=== PATIENT | female | born 1950 | race Caucasian/White ===

== ENCOUNTER 2023-08-18 19:57 | Outpatient (REF) | payer MEDICARE, BC, SELFPAY ==
[2023-08-23 08:07] LABS: Age Gdln ACOG Testing Note (.); Pap IG (Image Guided) Note (.)
== END 2023-08-18 19:58 | disposition home or self-care (01) ==
LOC: LAB 19:57
PROVIDERS: Visit Provider Obstetrics & Gynecology
DX: Z01.419 Encounter for gynecological examination (general) (routine) without abnormal findings (principal)
CPT/HCPCS: G0145

== ENCOUNTER 2023-08-27 13:58 | Outpatient (OUT) | payer MEDICARE, BC, SELFPAY ==
--- NOTE | 2023-08-27 14:02 | XR_ITS ---
[address] [address] Patient Name: LIBERTY BRYANT MRN: [id number] date: 1950 Sex: F Assigned Patient Location: [facility] Current Patient Location: [facility] Accession/Order Number: [id number] Exam Date: 08/27/2023 14:30 Report Date: 08/27/2023 15:12 At the request of: DAV OTERO Procedure: XR DEXA axial skeleton EXAMINATION: XR DEXA axial skeleton HISTORY: screening for osteoporosis COMPARISON: DEXA bone densitometry 08/19/2022 TECHNIQUE: Dual-energy X-ray absorptiometry (DXA) was performed. FINDINGS: SPINE ANALYSIS: Average bone mineral density is 1.255 g/cm2. T-score (standard deviation relative to young adult mean): 0.6 . -4.5% change since prior study. HIP ANALYSIS: Lowest bone mineral density is within the left femoral neck, 0.732 g/cm2. T-score (standard deviation relative to young adult mean): -2.2 . -3.4% change since prior study. XR/XR DEXA axial skeleton IMPRESSION: [employer] Classification: Osteopenia - Moderate Fracture Risk Electronically authenticated by: NICOLE BONE Date: 08/27/2023 15:12
--- NOTE | 2023-08-27 14:02 | MM_ITS ---
Patient Name: LIBERTY BRYANT MR#: [id number] : 1950 Exam Date: 08/27/2023 Ordering Doctor: DR Robert Ferreira . RADIOLOGY REPORT PROCEDURE: MM TOMOSYNTHESIS SCREENING BI COMPARISON: MG MAMM SCREEN 3D CALOS CAD, 05/16/2022. MG MAMM SCREEN 3D CALOS CAD, 05/07/2021. MG MAMM SCREEN CALOS W CAD, 04/23/2020. MG MAMM CALOS SCRN W CAD DIG, 01/03/2014. INDICATIONS: screening Calculator Name NCI Breast Cancer Risk Assessment Tool 5 Year Breast Cancer Risk 2.00% Lifetime Breast Cancer Risk 5.10% Personal Breast Cancer No Personal Ovarian Cancer No Treatments RADIATION/THYROIDECTOMY Family Cancers Aunt-maternal with breast cancer at age 50; Aunt-maternal with breast cancer at age 45; Grandmother-maternal with breast cancer at age 46; Mother with lung cancer at age 80; Brother with prostate cancer at age 70. LOCATION: [facility] BREAST COMPOSITION: Almost entirely fatty. FINDINGS: DIAGNOSTIC CATEGORY 1--NEGATIVE. RIGHT BREAST: No significant suspicious finding. No significant change has occurred. LEFT BREAST: No significant suspicious finding. No significant change has occurred. RECOMMENDATIONS: ROUTINE MAMMOGRAM AND CLINICAL EVALUATION IN 12 MONTHS. PLEASE NOTE: A NORMAL MAMMOGRAM DOES NOT EXCLUDE THE POSSIBILITY OF BREAST CANCER. A CLINICALLY SUSPICIOUS PALPABLE LUMP SHOULD BE BIOPSIED. Dictated by: Vinicius Marte M.D. on 08/28/2023 at 13:50 Approved by: Vinicius Marte M.D. on 08/28/2023 at 14:08
== END 2023-08-27 13:59 | disposition home or self-care (01) ==
LOC: MAMMO 13:58
PROVIDERS: Visit Provider Obstetrics & Gynecology
DX: Z12.31 Encounter for screening mammogram for malignant neoplasm of breast (principal); Z78.0 Asymptomatic menopausal state; Z80.3 Family history of malignant neoplasm of breast; Z80.1 Family history of malignant neoplasm of trachea, bronchus and lung; Z80.42 Family history of malignant neoplasm of prostate; M85.80 Other specified disorders of bone density and structure, unspecified site
CPT/HCPCS: 77063; 77067; 77080

== ENCOUNTER 2024-02-02 10:49 | Outpatient (OUT) | payer MEDICARE, BC, SELFPAY ==
--- NOTE | 2024-02-02 | US_ITS ---
[address] [address] Patient Name: LIBERTY BRYANT MRN: [id number] date: 1950 Sex: F Assigned Patient Location: Current Patient Location: Accession/Order Number: [id number] Exam Date: 02/02/2024 11:14 Report Date: 02/03/2024 13:37 At the request of: BERTHA BLAND Procedure: US renal BI EXAMINATION: US renal BI HISTORY: KIDNEY STONES, ASYMPTOMATIC, MICROHEMATURIA COMPARISON: No relevant comparison available. TECHNIQUE: Ultrasound examination was performed of the bladder. FINDINGS: Right Kidney: Normal in size, contour and cortical echotexture. The cortex measures 1 cm. No solid cortical mass, hydronephrosis or obstructing nephrolithiasis Height: 4.33 cm Length: 10.13 cm Width: 4.43 cm Left Kidney: Normal in size, contour and cortical echotexture. The cortex measures 1 cm. No solid cortical mass or hydronephrosis. Area of anechoic echogenicity measuring 1.1 cm, upper pole, simple cyst. Echogenic foci measuring up to 6 mm, nonobstructing nephrolithiasis Height: 4.99 cm Length: 10.97 cm Width: 5.11 cm Urinary bladder is normal. Prevoid volume 210 mL. US/US renal BI IMPRESSION: 1.1 cm left renal simple cyst Nonobstructing left nephrolithiasis Electronically authenticated by: DOMINICK MARTE Date: 02/03/2024 13:37
--- NOTE | 2024-02-02 11:04 | XR_ITS ---
The [address] [address] Patient Name: LIBERTY BRYANT MRN: [id number] date: 1950 Sex: F Assigned Patient Location: [place] Current Patient Location: [place] Accession/Order Number: [id number] Exam Date: 02/02/2024 11:00 Report Date: 02/04/2024 07:11 At the request of: BERTHA BLAND Procedure: XR abdomen 1V EXAMINATION: XR abdomen 1V HISTORY: KIDNEY STONES, ASYMPTOMATIC, MICROHEMATURIA COMPARISON: No relevant comparison available. FINDINGS: KIDNEY/URETER - RIGHT: No visible renal or ureteral calcifications. KIDNEY/URETER - LEFT: No visible renal or ureteral calcifications. PELVIS: No visible ureteral calcifications. Any visible calcifications favor phleboliths. BOWEL: No abnormal dilation or deviation. BONES: No acute fracture or dislocation. Moderate to severe degenerative changes with rotatory levocurvature OTHER: Negative. No abnormal gaseous collections. XR/XR abdomen 1V IMPRESSION: No definite urinary tract calculi Electronically authenticated by: DOMINICK MARTE Date: 02/04/2024 07:11
== END 2024-02-02 10:50 | disposition home or self-care (01) ==
LOC: US 10:50
PROVIDERS: Visit Provider Urology
DX: N20.0 Calculus of kidney (principal); R31.9 Hematuria, unspecified; N28.1 Cyst of kidney, acquired
CPT/HCPCS: 74018; 76775

== ENCOUNTER 2024-08-22 21:21 | Outpatient (REF) | payer MEDICARE, BC, SELFPAY ==
--- OUTSIDE RECORDS SUMMARY | 2024-08-22 21:32 | XMS_ITS | CCD ---
Author Organization [facility] Care Team Providers Care Manager Country Name Role Phone Mir Dominick Unavailable MD Estefanía Sutherland Primary Care Provider DO Adriana Cárdenas Jr Attending Provider ESTEFANÍA SUTHERLAND Primary Care Physician [phone] ESTEFANÍA SUTHERLAND Primary Care Physician Cesar Estrada Unavailable SUTHERLAND ., DR ESTEFANÍA Lima Primary Care Unavailable BLAND ., DR STONE Consulting Unavailable BLAND ., DR STONE Attending Unavailable BLAND ., DR STONE Admitting Unavailable ZIEBER, DR NICOLE Vu Consulting Unavailable SUTHERLAND ., DR ESTEFANÍA Lima Primary Care Unavailable JHON ., DR DEMARCO Consulting Unavailable JHON ., DR DEMARCO Attending Unavailable JHON ., DR DEMARCO Admitting Unavailable SUTHERLAND ., DR ESTEFANÍA Lima Primary Care Unavailable BLAND ., DR STONE Consulting Unavailable BLAND ., DR STONE Attending Unavailable BLAND ., DR STONE Admitting Unavailable ZIEBER, DR NICOLE Vu Consulting Unavailable SUTHERLAND ., DR ESTEFANÍA Lima Primary Care Unavailable JHON ., DR DEMARCO Consulting Unavailable JHON ., DR DEMARCO Attending Unavailable JHON ., DR DEMARCO Admitting Unavailable ZIEBER, DR NICOLE uV Consulting Unavailable SUTHERLAND ., DR ESTEFANÍA Lima Primary Care Unavailable SUTHERLAND ., DR ESTEFANÍA Lima Consulting Unavailable SUTHERLAND ., DR ESTEFANÍA Lima Attending Unavailable SUTHERLAND ., DR ESTEFANÍA Lima Admitting Unavailable SUTHERLAND ., DR ESTEFANÍA Lima Primary Care Unavailable SUTHERLAND ., DR ESTEFANÍA Lima Attending Unavailable SUTHERLAND ., DR ESTEFANÍA Lima Admitting Unavailable SUTHERLAND ., DR ESTEFANÍA Lima Consulting Unavailable JHON ., DR DEMARCO Attending Unavailable JHON ., DR DEMARCO Admitting Unavailable SUTHERLAND ., DR ESTEFANÍA Lima Primary Care Unavailable NEW WINDSOR, DR DOMINICK Cheng Consulting Unavailable JHON ., DR DEMARCO Consulting Unavailable SUTHERLAND ., DR ESTEFANÍA Lima Attending Unavailable SUTHERLAND ., DR ESTEFANÍA Lima Admitting Unavailable SUTHERLAND ., DR ESTEFANÍA Lima Consulting Unavailable SUTHERLAND ., DR ESTEFANÍA Lima Primary Care Unavailable BLAND ., DR STONE Consulting Unavailable SUTHERLAND ., DR ESTEFANÍA Lima Attending Unavailable SUTHERLAND ., DR ESTEFANÍA Lima Admitting Unavailable SUTHERLAND ., DR ESTEFANÍA Lima Primary Care Unavailable NOLAN JAY Consulting Unavailable SUTHERLAND ., DR ESTEFANÍA Lima Primary Care Unavailable HAY ., DR ZULUAGA Attending Unavailable HAY ., DR ZULUAGA Admitting Unavailable HAY ., DR ZULUAGA Consulting Unavailable YUMIKO PARSONS Consulting Unavailable BERNSTEIN ., MR ROSALINDA Attending Unavailable BERNSTEIN ., MR ROSALINDA Admitting Unavailable BERNSTEIN ., MR ROSALINDA Consulting Unavailable SUTHERLAND ., DR ESTEFANÍA Lima Primary Care Unavailable BLAND ., DR STONE Consulting Unavailable BLAND ., DR STONE Attending Unavailable BLAND ., DR STONE Admitting Unavailable SUTHERLAND ., DR ESTEFANÍA Lima Primary Care Unavailable Dominick Soni Consulting Unavailable Bambi Browning Primary Care Physician [phone] DO Adriana Cárdenas Jr Attending Provider GINA Browning Primary Care Provider MD Cesar Estrada Attending Provider GINA Browning Primary Care Provider MD Cesar Estrada Attending Provider [phone] GINA Browning Primary Care Provider LIANE Browning-[place] Primary Care Provider MD Cesar Estrada Attending Provider MD Marc Leggett Primary Care Provider HARITHA Bernstein Attending Provider Marc Leggett Primary Care Unavailable Rosalinda Bernstein Attending Unavailable Rosalinda Bernstein Admitting Unavailable Marc Leggett Primary Care Unavailable Rosalinda Bernstein Attending Unavailable Roslainda Bernstein Admitting Unavailable Adriana Cárdenas Jr Attending Unavailable Adriana Cárdenas Jr Admitting Unavailable Bambi Browning Primary Care Unavailable Cesar Estrada Admitting Unavailable NamBambi Primary Care Unavailable Cesar Estrada Attending Unavailable NamBambi Primary Care Unavailable AngeliquettCesar krueger Admitting Unavailable DittCesar krueger Attending Unavailable Cesar Estrada Admitting Unavailable NamBambi waddell Primary Care Unavailable Cesar Estrada Attending Unavailable Deanna Phan Consulting Unavailable Bambi Browning Primary Care Unavailable Adriana Cárdenas Jr Attending Unavailable Adriana Cárdenas Jr Admitting Unavailable Linda Perez Consulting Unavailable Blossom Velasquez Consulting Unavailable Nati Otero Consulting Unavailable Coni Salazar Consulting Unavailable Jo Ann Arambula Consulting Unavailable Beny Nazario Consulting Unavailable Shadia White Consulting Unavailable Tejinder Guaman Consulting Unavailable Marky Wright Consulting Unavailable Christiano Venegas Consulting UnavailAbner Miller Consulting Unavailable Rachel Callejas Consulting Unavailable Shasta Sigala Consulting UnavailKathleen Corea Consulting Unavailable Ta Guaman Consulting Unavailable Farshad De La Rosa Consulting Unavailable Aamir Harley Consulting Unavailable Luis Antonio George Consulting Unavailable Julissa Rios Consulting Unavailable Juan Morrell Consulting Unavailable Judie Elizabeth Consulting Unavailable Talib Brown Consulting Unavailab Ritchie Matthew Consulting Unavailable Hammad Vallejo Consulting Unavailable Amandeep Rivera Consulting Unavailable Shaina Hermosillo Consulting Unavailable Jass Monte Consulting Unavailable Forest Reece Consulting Unavailable Nadira Salinas Consulting Unavailable Hank Bob Consulting Unavailable BrianomaKarel vu Consulting Unavailable Mikki Chen Consulting Unavailable Carolyn Richter Consulting Unavailable Joseph Alaashleigh Consulting Unavailable Bon Padron Consulting Unavailable Gabriela Martinez Consulting Unavailable Bambi Browning Primary Care Unavailable Adriana Cárdenas Jr Attending Unavailable Adriana Cárdenas Jr Admitting Unavailable Marc Leggett MD Primary Care Provider [phone] Bertha BLAND Attending Unavailable Bmabi Browning Attending Unavailable NamBambi waddell Attending Unavailable NamBambi waddell Attending Unavailable NamBambi waddell Attending Unavailable NASMICAH JENSEN Attending Unavailable EDWINA, Bertha Vu Attending Unavailable Nam, Bambi Cruz Admitting Unavailable Nam, Bambi Cruz Attending Unavailable BLAND, Bertha Vu Attending Unavailable Nam, Bambi L Attending Unavailable Nam, Bambi L Admitting Unavailable Nam, Bambi L Attending Unavailable Nam, Bambi L Attending Unavailable Nam, Bambi L Attending Unavailable Nam, Bambi L Attending Unavailable Nam, Bambi L Attending Unavailable Nam, Bambi L Attending Unavailable Nam, Bambi L Admitting Unavailable LOWE, FLORES Attending Unavailable AAMIR JAMES Attending Unavailable MURCEK, KEVIN Rogers Attending Unavailable AAMIR JAMES Referring Unavailable MURCEK, KEVIN Rogers Referring Unavailable MURCEK, KEVIN Rogers Attending Unavailable MURCEK, KEVIN Rogers Attending Unavailable MURCEK, KEVIN Rogers Attending Unavailable ROBERT FERREIRA Attending Unavailable ROSALINDA BERNSTEIN Attending Unavailable ROSALINDA BERNSTEIN Referring Unavailable STEPANIC, JR., ADRIANA Short Attending Unavaila ble ROSALINDA BERNSTEIN Attending Unavailable ROSALINDA BERNSTEIN Attending Unavailable ELENA RDZ Attending Unavailable STEPANIC, JR., ADRIANA Short Referring Unavaila ble BLACKSELENA FORTUNE Attending Unavailable STEPANIC, JR., ADRIANA Short Referring Unavaila ble KELBLEY, ANA Attending Unavailable STEPANIC, JR., ADRIANA Short Referring Unavaila ble SAGE JO Attending Unavailable STEPANIC, JR., ADRIANA Short Referring Unavaila ble ELENA RDZ Attending Unavailable STEPANIC, JR., ADRIANA Short Referring Unavaila ble KELBLEY, ANA Attending Unavailable STEPANIC, JR., ADRIANA Short Referring Unavaila ble ROSALINDA BERNSTEIN Attending Unavailable ROSALINDA BERNSTEIN Referring Unavailable KELBLEY, ANA Attending Unavailable STEPANIC, JR., ADRIANA Short Referring Unavaila ble KELBLEY, ANA Attending Unavailable STEPANIC, JR., ADRIANA Short Referring Unavaila ble SAGE JO Attending Unavailable STEPANIC, JR., ADRIANA Short Referring Unavaila ble BRSAGE ZULUAGA Attending Unavailable STEPANIC, JR., ADRIANA Short Referring Unavaila ble BRINKSAGE Attending Unavailable STEPANIC, JR., ADRIANA Short Referring Unavaila ble KELBLEY, ANA Attending Unavailable STEPANIC, JR., ADRIANA Short Referring Unavaila ble LOWEFLORES Attending Unavailable SAGE JO Attending Unavailable STEPANIC, JR., ADRIANA Short Referring Unavaila ble ROSALINDA BERNSTEIN Attending Unavailable KATERYNA CHÁVEZ Attending Unavailable Allergies Allergy Classification Reported Allergen(s) Allergy Type Date of Onset Reaction(s) Facility (11 sources) Adhesive agent; Translations: [adhesive] Allergy to substance 02-07-20 [facility] (20 sources) Sulfamethoxazole / Trimethoprim; Translations: [sulfamethoxazole-t rimethoprim] Drug Allergy 11-27-19 Eruption of skin (disorder), Rash [facility] (9 sources) Sulfonamides (Antibiotic); Translations: [Sulfa (Sulfonamide Antibiotics)] Allergy to substance 11-25-19 [facility] (7 sources) Acetaminophen; Translations: [acetaminophen] Drug Allergy 03-12-[address] [facility] (7 sources) oxyCODONE; Translations: [oxycodone] Drug Allergy 03-12-[address] [facility] (7 sources) Acetaminophen / oxyCODONE; Translations: [acetaminophen-oxyc odone] Drug Allergy Hallucinations (finding) [facility] (8 sources) Acetaminophen / HYDROcodone Drug Allergy 11-27-19 GI intolerance [facility] Healthcare Work Phone: (19 sources) Acetaminophen / oxyCODONE Drug Allergy 11-27-19 Hallucinations [facility] (19 sources) Wound Dressing Adhesive Drug Allergy 08-13-19 Rash [facility] (2 sources) No Known Medication Allergies; Translations: [No Known Medication Allergies] Propensity to adverse reactions (disorder) [facility] Repository Medications Current Medications Medication Drug Class(es) Dates Sig (Normalized) Sig (Original) 0.5 ML tirzepatide 5 MG/ML Auto-Injector [Mounjaro] (3 sources) Start: 10-05-2023 inject 2.5 mg by subcutaneous injection every week, then inject 2.5 mg by subcutaneous injection every week Mounjaro 2.5 mg/0.5 mL subcutaneous solution 2.5 mg, SubCutaneous, qWeek, INJECT 2.5MG SUBCUTANEOUSLY EVERY WEEK Start Date: 10/05/23 Status: Ordered 0.8 ml adalimumab 50 mg/ml prefilled syringe (20 sources) Tumor Necrosis Factor Michi Start: 03-12-2023 End: 08-12-2024 Adalimumab (Humira(Cf) Pen) 40 mg/0.4 mL pen injector kit Discontinued 40 MG SUBCUT EVERY 2 WEEKS February 03, 2024 9:10am August 12, 2024 2:12pm Start: 07-10-2022 inject 40 mg by subc utaneous injection every other week Adalimumab (Humira) 40 mg/0.8 mL syringe kit Active 40 MG SUBCUT EVERY 2 WEEKS August 12, 2024 12:00am Start: 05-05-2022 End: 12-12-2022 Adalimumab (Humira(Cf) Pen) 40 mg/0.4 mL pen injector kit Discontinued 40 MG SUBCUT EVERY 2 WEEKS May 05, 2022 1:00am December 12, 2022 3:11pm Start: 09-17-2021 inject 0.4 mL by sub cutaneous injection every other week Humira 40 MG/0.4ML 0.4 ml Subcutaneous EVERY OTHER WEEK for 90 days CITRATE FREE PEN NEEDLE September, Active Start: 04-02-2021 Humira 40 MG/0 .8ML 0.8 ml Subcutaneous every 14 days for 30 day(s) PLEASE DISEPNSE CITRATE FREE Mar, Active Start: 07-24-2017 End: 05-05-2022 Adalimumab 40 mg/0.8 mL pen injector kit Discontinued 1 UNIT SUBCUT As Directed July 24, 2017 1:00am May 05, 2022 10:46am Start: 07-24-2017 End: 05-05-2022 Adalimumab Discontinued 1 UN IT SUBCUT As Directed July 24, 2017 1:00am May 05, 2022 10:46am Start: 05-19-2013 Humira 40 MG/0 .8ML 1 INJECTION Subcutaneous EVERY OTHER WEEK for 90 days May, Not-Taking Start: 05-19-2013 Humira 40 MG/0 .8ML 1 INJECTION Subcutaneous EVERY OTHER WEEK for 90 days May, Active amoxicillin 500 mg oral tablet (20 sources) Penicillin-class Antibacterial Start: 04-28-2023 End: 07-20-2024 take 4 tablets by mouth once at mealtime amoxicillin (Amoxil) 500 MG tablet Indications: S/P total knee arthroplasty, left 4 tabs PO once 30-60 mins before procedure with food 4 tablet 3 06/23/2024 Active amoxicillin 875 mg / clavulanate 125 mg oral tablet (3 sources) Penicillin-class Antibacterial Start: 07-18-2022 take 1 tablet by mouth twice daily Augmentin 875 mg oral tablet 875 mg, Oral, BID, # 6 cap(s), Refills(s) 0, Pharmacy: [facility]/pharmacy #[id number], 158, cm, 07/14/22 11:51:00 EST, Height/Length Dosing, 92, kg, 07/14/22 11:51:00 EST, Weight Dosing Start Date: 07/18/22 Status: Ordered Ascorbic Acid (20 sources) Vitamin C Start: 07-14-2022 Vitamin C Daily, Refills(s) 0 Start Date: 07/14/22 Status: Ordered Start: 05-05-2022 take 3 tablets by ma uth once daily in the morning Ascorbic Acid (Vitamin C) (Vitamin C) 250 mg Tablet Active 750 MG PO Every morning May 05, 2022 1:00am ascorbic acid (V itamin C) 250 MG chewable tablet Vitamin C Active aspirin 81 mg delayed release oral tablet (20 sources) Platelet Aggregation Inhibitor, Nonsteroidal Anti-inflammatory Drug Start: 08-15-2024 take 1 tablet by mouth once Aspirin 81 mg tablet,delayed release (DR/EC) Active 81 MG PO Once August 15, 2024 10:59am Start: 07-10-2022 End: 08-15-2024 take 1 tablet by mouth in the morning aspirin 81 MG EC tablet Take 1 tablet by mouth in the morning. 07/10/2022 Active Start: 05-05-2022 End: 12-12-2022 take 1 tablet by mouth once daily in the morning Aspirin 81 mg Tablet,Delayed Release (Dr/Ec) Discontinued 81 MG PO Every morning May 05, 2022 1:00am December 12, 2022 3:14pm Aspirin 81 Activ e atorvastatin 20 mg oral tablet (20 sources) HMG-CoA Reductase Inhibitor Start: 05-05-2022 End: 03-30-2025 take 1 tablet by mouth once daily atorvastatin (Lipitor) 20 MG tablet Take 1 tablet every day by oral route for 30 days. 07/10/2022 Active Atorvastatin [facility] Active bacillus coagulans [id number] unt / inulin 250 mg oral capsule (20 sources) Start: 11-24-2022 take 1 capsule by mouth once daily at bedtime Bacillus Coagulans-Inulin (Probiotic With Prebiotic) 1 billion-250 cell-mg Capsule Active 1 CAP PO Daily at bedtime November 24, 2022 12:00am Bacillus Coagula ns-Inulin (PROBIOTIC-PREBIOTIC PO) Probiotic Active baclofen 10 mg oral tablet (20 sources) gamma-Aminobutyric Acid-ergic Agonist Start: 08-17-2023 BACLOFEN 10 MG TABLET BACLOFEN 10 MG TABLET Start Date: 08/17/23 Status: Ordered Start: 05-05-2022 End: 06-27-2024 take 1 tablet by mouth in the morning as needed, then take 2 tablets by mouth at bedtime as needed baclofen (Lioresal) 10 MG tablet Indications: Muscle spasm TAKE 1 TABLET BY MOUTH IN THE MORNING AND 2 BEFORE BEDTIME NEEDED 270 tablet 2 06/07/2024 Active Baclofen Active Biotin (20 sources) Start: 07-14-2022 biotin Oral, D aily, Refills(s) 0 Start Date: 07/14/22 Status: Ordered Start: 07-27-2017 End: 08-15-2024 take 1 tablet by mouth once daily in the morning Biotin 10,000 mcg Capsule Discontinued 1 TAB PO Every morning July 27, 2017 12:00am August 15, 2024 10:59am Biotin Active Calcium (5 sources) Phosphate Binder, Calcium Start: 05-16-2024 calc ium chew calcium chew Start Date: 05/16/24 Status: Ordered Start: 08-13-2023 calcium Active PO August 13, 2023 12:00am cephalexin 500 mg oral capsule (13 sources) Cephalosporin Antibacterial Start: 06-09-2024 take 1 capsule by mouth twice daily cephalexin (Keflex) 500 MG capsule Indications: Basal cell carcinoma (BCC) of glabella Take 1 capsule, by mouth, bid, 10 days 20 capsule 06/09/2024 Active Chlorthalidone (6 sources) Thiazide-like Diuretic Chlorthalidone Active cholecalciferol 0.125 mg oral tablet (20 sources) Vitamin D Start: 07-27-2017 Cholecalciferol (Vitamin D3) (Vitamin D3) 5,000 unit Tablet Active 25252 UNIT PO As Directed July 27, 2017 12:00am Start: 07-27-2017 Cholecalcifero l (Vitamin D3) (Vitamin D3) 5,000 unit Tablet Active 54584 UNIT PO every week July 27, 2017 12:00am cholecalciferol (Vitamin D-3) 1.25 MG (43033 UT) capsule Take 50,000 Units by mouth 1 (one) time per week 1 capsule Orally twice a month Active ciprofloxacin 500 mg oral tablet (7 sources) Quinolone Antimicrobial Start: 01-21-2024 End: 01-28-2024 take 1 tablet by mouth every twelve hours ciprofloxacin 500 mg Tab 500 mg = 1 tab(s), Oral, q12hr, X 7 day(s), # 14 tab(s), Refills(s) 0, Pharmacy: [facility]/pharmacy #[id number], 158, cm, 01/21/24 10:49:00 EDT, Height/Length Dosing, 86.1, kg, 01/21/24 10:49:00 EDT, Weight Dosing Start Date: 01/21/24 Stop Date: 01/28/24 Status: Ordered Start: 07-14-2022 Cipro 500 mg T ab 500 mg = 1 tab(s), Oral, As Directed, Patient to take 1 tab the day before procedure and the 2nd tab the day of procedure once completed., # 2 tab(s), Refills(s) 0, Pharmacy: [facility]/pharmacy #[id number], 158, cm, 07/14/22 11:51:00 EST, Height/Length Dosing, 92... Start Date: 07/14/22 Status: Ordered Co Q 10 (6 sources) Co Q 10 Active coenzyme Q-10 100 MG ER capsule (19 sources) coenzyme Q-10 10 0 MG ER capsule as directed Orally Active CoQ10 (13 sources) Start: 07-14-2022 CoQ10 Oral, Daily, Refills(s) 0 Start Date: 07/14/22 Status: Ordered Cranberry preparation (20 sources) Non-Standardized Food Allergenic Extract, Non-Standardized Plant Allergenic Extract Start: 02-13-2023 cranberry Refill(s) 0 Start Date: 02/13/23 Status: Ordered Start: 11-24-2022 take 1 tablet by vish twice daily Cranberry Extract 250 mg Tablet Active 500 MG PO Twice daily November 24, 2022 12:00am Start: 11-24-2022 take 500 mg by mouth twice elikn ly Cranberry Extract Active 500 MG PO Twice daily November 23, 2022 11:00pm Start: 11-24-2022 take 500 mg by mouth twice elkin ly Cranberry Extract Active 500 MG PO Twice daily November 24, 2022 12:00am Cranberry 500 MG chewable tablet Chew. Active docusate sodium 100 mg oral capsule (4 sources) take 2 capsules by mouth at bedtime Colace 100 MG 2 capsules Orally at bedtime Active doxycycline hyclate 100 mg oral capsule (1 source) Tetracycline-c lass Drug Start: 12-05-2022 take 1 capsule by mouth once daily doxycycline hyclate 100 mg Cap 100 mg = 1 cap(s), Oral, Daily, # 30 cap(s), Refills(s) 0, Pharmacy: [facility]/pharmacy #[id number], 158, cm, 12/05/22 11:44:00 EDT, Height/Length Dosing, 92.2, kg, 12/05/22 11:44:00 EDT, Weight Dosing Start Date: 12/05/22 Status: Ordered ferrous sulfate 325 mg oral tablet (20 sources) Start: 05-05-2022 take 1 tablet by mouth once daily Ferrous Sulfate 325 mg (65 mg iron) Tablet Active 65 MG PO every day at noon May 05, 2022 1:00am take 1 tablet by mouth at [place] ferrous sulfate 325 (65 Fe) MG tablet Take 325 mg by mouth in the morning. Take with meals. Active Fish Oils (19 sources) Start: 07-14-2022 take 1200 mg by mout h once daily Fish Oil 1,200 mg, Oral, Daily, Refill(s) 0 Start Date: 07/14/22 Status: Ordered Start: 07-14-2022 Fish Oil Oral, Refill(s) 0 Start Date: 07/14/22 Status: Ordered take 1 capsule by mo ut twice daily Fish Oil 1200 MG 1 capsule with a meal Orally twice a day for 30 days Active take 1 capsule by mo ut twice daily Fish Oil 1000 MG 1 capsule with a meal Orally twice a day for 30 day(s) Active folic acid 1 mg / polysaccharide iron complex 150 mg / vitamin b12 0.025 mg oral capsule (3 sources) Vitamin B12 Start: 12-05-2022 Poly Iron Forte oral capsule Refill(s) 0 Start Date: 12/05/22 Status: Ordered hydroCHLOROthiazide 25 mg / losartan potassium 100 mg oral tablet (20 sources) Thiazide Diuretic, Angiotensin 2 Receptor Michi Start: 03-31-2023 take 1 tablet by mouth once daily Losartan-Hydroc hlorothiazide 100-25 mg tablet Active 1 TAB PO Daily March 31, 2023 1:00am Start: 08-06-2022 losartan-hydro CHLOROthiazide (Hyzaar) 100-25 MG tablet Take by mouth. 08/06/2022 Active Start: 05-05-2022 End: 03-12-2023 take 1 tablet by mouth once daily in the morning Losartan-Hydrochlorothiazide 100-25 mg tablet Discontinued 1 TAB PO Every morning May 05, 2022 1:00am March 12, 2023 8:23am Iron (6 sources) Iron Active Iron 100 Plus (13 sources) Start: 07-14-2022 take 1 tablet by vish th once daily Iron 100 Plus 1 tab(s), Oral, Daily, Refill(s) 0 Start Date: 07/14/22 Status: Ordered Start: 07-14-2022 Iron 100 Plus Oral, Daily, Refill(s) 0 Start Date: 07/14/22 Status: Ordered L-Carnitine (9 sources) Start: 09-18-2022 take 2000 mg by mout h once daily L-Carnitine 2,000 mg, Oral, Daily, Refills(s) 0 Start Date: 09/18/22 Status: Ordered Start: 09-18-2022 take 500 mg by mouth once angela y L-Carnitine 500 mg, Oral, Daily, Refills(s) 0 Start Date: 09/18/22 Status: Ordered levothyroxine sodium 0.125 mg oral tablet (20 sources) l-Thyroxine Start: 04-04-2024 take 1 tablet by mouth once daily levothyroxine 125 mcg (0.125 mg) Tab 125 mcg = 1 tab(s), Oral, Daily, # 90 tab(s), Refills(s) 1, Pharmacy: [facility], 158, cm, 03/15/24 15:36:00 EDT, Height/Length Dosing, 87.9, kg, 03/15/24 15:36:00 EDT, Weight Dosing Start Date: 04/04/24 Status: Ordered Start: 11-05-2023 take 1 tablet by vish th once daily levothyroxine 125 mcg (0.125 mg) Tab 125 mcg = 1 tab(s), Oral, Daily, # 90 tab(s), Refills(s) 1, Pharmacy: [facility], 158, cm, 10/05/23 11:25:00 EDT, Height/Length Dosing, 92.3, kg, 10/05/23 11:25:00 EDT, Weight Dosing Start Date: 11/05/23 Status: Ordered Start: 08-12-2023 take 1 tablet by vish once daily levothyroxine 125 mcg (0.125 mg) Tab 125 mcg = 1 tab(s), Oral, Daily, # 90 tab(s), Refills(s) 0, Pharmacy: [facility], 159, cm, 05/13/23 14:24:00 EST, Height/Length Dosing, 95.1, kg, 05/13/23 14:24:00 EST, Weight Dosing Start Date: 08/12/23 Status: Ordered Start: 04-27-2023 take 1 tablet by vish once daily levothyroxine 125 mcg (0.125 mg) Tab 125 mcg = 1 tab(s), Oral, Daily, # 90 tab(s), Refills(s) 0, Pharmacy: [facility], 158, cm, 02/13/23 9:31:00 EDT, Height/Length Dosing, 92.2, kg, 02/13/23 9:31:00 EDT, Weight Dosing Start Date: 04/27/23 Status: Ordered Start: 03-12-2023 take 1 tablet by vish once daily Levothyroxine 125 mcg tablet Active 125 MCG PO Daily March 12, 2023 12:00am Start: 11-11-2022 take 1 tablet by vish once daily levothyroxine 125 mcg (0.125 mg) Tab 125 mcg = 1 tab(s), Oral, Daily, # 90 tab(s), Refills(s) 1, Pharmacy: [facility], 158, cm, 09/18/22 10:23:00 EDT, Height/Length Dosing, 96.5, kg, 09/18/22 10:23:00 EDT, Weight Dosing Start Date: 11/11/22 Status: Ordered Start: 07-10-2022 take 1 capsule by mo [facility] once daily levothyroxine 125 mcg (0.125 mg) oral capsule mcg cap(s), Oral, Daily, Refills(s) 0 Start Date: 07/10/22 Status: Ordered Start: 07-24-2017 End: 03-12-2023 Levothyroxine 150 mcg tablet Discontinued 125 MCG PO Every morning July 24, 2017 1:00am March 12, 2023 8:13am Start: 07-24-2017 End: 03-12-2023 take 125 ug by mouth once daily in the morning Levothyroxine Discontinued 125 MCG PO Every morning July 24, 2017 1:00am March 12, 2023 8:13am Levothyroxine So dium 150 MCG 1 tablet every morning on an empty stomach Orally Once a day for 30 day(s) Active liothyronine sodium 0.005 mg oral tablet (20 sources) l-Triiodothyronine Start: 10-09-2023 take 1 tablet by mouth once daily liothyronine 5 mcg Tab 5 mcg = 1 tab(s), Oral, Daily, # 90 tab(s), Refills(s) 4, Pharmacy: [facility], 158, cm, 10/05/23 11:25:00 EDT, Height/Length Dosing, 92.3, kg, 10/05/23 11:25:00 EDT, Weight Dosing Start Date: 10/09/23 Status: Ordered Start: 07-15-2023 take 1 tablet by [facility] once daily liothyronine 5 mcg Tab 5 mcg = 1 tab(s), Oral, Daily, # 90 tab(s), Refills(s) 0, Pharmacy: [facility], 159, cm, 05/13/23 14:24:00 EST, Height/Length Dosing, 95.1, kg, 05/13/23 14:24:00 EST, Weight Dosing Start Date: 07/15/23 Status: Ordered Start: 07-10-2022 take 1 ug by mouth once daily liothyronine 5 mcg Tab mcg tab(s), Oral, Daily, Refills(s) 0 Start Date: 07/10/22 Status: Ordered Start: 05-05-2022 liothyronine ( Cytomel) 5 MCG tablet 1 (one) time each day at the same time. 07/10/2022 Active losartan potassium 100 mg oral tablet (8 sources) Angiotensin 2 Receptor Michi Start: 07-10-2022 take 1 mg by mouth once daily losartan 100 mg Tab mg tab(s), Oral, Daily, Refills(s) 0 Start Date: 07/10/22 Status: Ordered Losartan [facility] Active Magnesium (16 sources) Start: 07-27-2017 take 2 tablets by mo [facility] once daily at bedtime Magnesium 250 mg Tablet Active 500 MG PO Daily at bedtime July 27, 2017 12:00am Start: 07-27-2017 take 500 mg by mouth once daily at bedtime Magnesium Active 500 MG PO Daily at bedtime July 27, 2017 12:00am Start: 07-27-2017 take 500 mg by mouth once daily at bedtime Magnesium Active 500 MG PO Daily at bedtime July 26, 2017 11:00pm take 1 tablet by vish twice daily Magnesium 400 MG 1 tablet with a meal Orally twice daily for 30 days Active take 1 tablet by vish twice daily Magnesium 250 MG 1 tablet with a meal Orally twice daily for 30 day(s) Active magnesium gluconate 500 mg o ral tablet (20 sources) Start: 07-14-2022 magnesium gluc rupert (Magonate) 500 MG tablet Take by mouth. 07/14/2022 Active Melatonin (20 sources) Start: 07-14-2022 melatonin Once a day (at bedtime), Refills(s) 0 Start Date: 07/14/22 Status: Ordered Start: 05-05-2022 End: 08-15-2024 take 1 tablet by mouth once daily at bedtime as needed Melatonin 5 mg Tablet Discontinued 5 MG PO Daily at bedtime as needed for Insomnia May 05, 2022 1:00am August 15, 2024 11:00am Melatonin 5 MG c hewable tablet Melatonin Active metFORMIN hydrochloride 500 mg oral tablet (20 sources) Biguanide Start: 07-24-2017 take 1 tablet by mouth three times daily metformin 500 mg ER Tab 500 mg = 1 tab(s), Oral, TID, # 270 tab(s), Refills(s) 0, Pharmacy: [facility], 158, cm, 02/18/24 13:05:00 EDT, Height/Length Dosing, 91.7, kg, 02/18/24 13:05:00 EDT, Weight Dosing Start Date: 03/02/24 Status: Ordered Start: 07-24-2017 take 1 mg by mouth once daily metformin 500 mg ER Tab mg tab(s), Oral, Daily, Refills(s) 0 Start Date: 07/10/22 Status: Ordered take 3 tablets by mo [facility] once daily metFORMIN (Glucophage) 500 MG tablet Take 3 tablets every day by oral route for 90 days. Active Metformin tid No t-Taking Metformin tid Ac tive Methyl B-12 (20 sources) Start: 09-18-2022 Methyl B-12 Se e Instructions, 5 mg Chewed, Refills(s) 0 Start Date: 09/18/22 Status: Ordered Start: 07-27-2017 Methyl B-12 Ac tive 5 MG PO As Directed July 26, 2017 11:00pm Start: 07-27-2017 Methyl B-12 Ac tive 5 MG PO As Directed July 27, 2017 12:00am Start: 07-27-2017 take 5 mg by mouth o nce daily in the morning Methyl B-12 Active 5 MG PO Every morning July 27, 2017 12:00am Start: 07-27-2017 take 5 mg by mouth once daily Methyl B-12 Active 5 MG PO Daily July 26, 2017 11:00pm Methyl B-12 Not- Taking Methyl B-12 Acti ve Methylcobalamin (Methyl B-12) 500 MCG chewable tablet (19 sources) Start: 09-18-2022 Methylcobalami n (Methyl B-12) 500 MCG chewable tablet See Instructions, 5 mg Chewed, Refills(s) 0 09/18/2022 Active Multiple Vitamin (Multi Vitamin) tablet (19 sources) Multiple Vitamin (Multi Vitamin) tablet 1 (one) time each day at the same time. Active Multivitamin preparation (20 sources) Start: 03-31-2023 take 1 tablet by mouth once daily Multivitamin Active 1 TAB PO Daily March 31, 2023 1:00am Start: 03-31-2023 [facility] tablet by [facility] daily Multivitamin Active 1 TAB PO Daily March 31, 2023 12:00am Start: 07-14-2022 multivitamin D aily, Refill(s) 0 Start Date: 07/14/22 Status: Ordered Start: 07-27-2017 End: 03-31-2023 take 1 capsule by mouth once daily in the morning Multivitamin Discontinued 1 CAP PO Every morning July 27, 2017 12:00am March 31, 2023 12:57pm Start: 07-27-2017 End: 03-31-2023 take 1 capsule by mouth once daily in the morning Multivitamin Discontinued 1 CAP PO Every morning July 26, 2017 11:00pm March 31, 2023 11:57am Start: 07-27-2017 take 1 capsule by mo uth once daily in the morning Multivitamin Active 1 CAP PO Every morning July 27, 2017 12:00am Start: 07-27-2017 take 1 capsule by mo uth once daily in the morning Multivitamin Active 1 CAP PO Every morning July 26, 2017 11:00pm Multivitamin Tablet (1 source) Start: 03-31-2023 take 1 tablet by mouth once daily Multivitamin Tablet Active 1 TAB PO Daily March 31, 2023 1:00am Multivitamins (6 sources) Multivitamins as directed Orally Active [place] 5-Orw-Xje-Fish Oil (Fish Oil) 1,200 (144-216) mg Capsule (6 sources) Start: 03-12-2023 take 1 capsule by mouth three times daily [place] 0-Lem-Bwe-Fish Oil (Fish Oil) 1,200 (144-216) mg Capsule Active 1 CAP PO Three times daily March 11, 2023 11:00pm Start: 03-12-2023 take 1 capsule by mo uth three times daily [place] 9-Zoq-Yee-Fish Oil (Fish Oil) 1,200 (144-216) mg Capsule Active 1 CAP PO Three times daily March 12, 2023 12:00am [place]-3 Fatty Acids (Fish Oil) 1200 MG capsule delayed-release (19 sources) Start: 07-14-2022 [place]-3 Fatty Acids (Fish Oil) 1200 MG capsule delayed-release Take by mouth. 07/14/2022 Active omeprazole 20 mg delayed release oral capsule (20 sources) Proton Pump Inhibitor Start: 07-24-2017 End: 08-13-2023 take 1 capsule by mouth once daily omeprazole (PriLOSEC) [address] capsule Take 1 capsule every day by oral route for 90 days. 09/09/2022 Active ondansetron 8 mg oral tablet (20 sources) Serotonin-3 Receptor Antagonist Start: 08-26-2023 take 1 tablet by mouth every eight hours as needed for nausea ondansetron (Zofran) 8 MG tablet Take 8 mg by mouth every 8 (eight) hours if needed for nausea 08/26/2023 Active polysaccharide iron complex 150 mg oral capsule (3 sources) Start: 10-05-2023 take 1 capsule by mouth once daily Ferrex-150 oral capsule 150 mg = 1 cap(s), Oral, Daily, Refills(s) 0 Start Date: 10/05/23 Status: Ordered probiotic (4 sources) probiotic Active probiotic with prebiotic (1 source) Start: 05-16-2024 probiotic with prebiotic probiotic with prebiotic Start Date: 05/16/24 Status: Ordered sulfamethoxazole 800 mg / trimethoprim 160 mg oral tablet (2 sources) Dihydrofolate Reductase Inhibitor Antibacterial, Sulfonamide Antimicrobial Start: 10-08-2022 End: 10-18-2022 Bactrim D.S. 800 mg-160 mg Tab 1 tab(s), Oral, BID for 10 day(s), 20 tab(s), Refill(s) 0, [facility]/pharmacy #[id number], 158, cm, 09/18/22 10:23:00 EDT, Height/Length Dosing, 96.5, kg, 09/18/22 10:23:00 EDT, Weight Dosing Start Date: 10/08/22 Stop Date: 10/18/22 Status: Ordered Tirzepatide (1 source) Start: 08-15-2024 Tirzepatide (Mounjaro) 5 mg/0.5 mL pen injector Active 5 MG SUBCUT every week August 15, 2024 12:00am Tirzepatide (Mounjaro) 5 MG/0.5ML solution auto-injector (15 sources) inject 5 mg by subcutaneous injection every week Tirzepatide (Mounjaro) 5 MG/0.5ML solution auto-injector Inject 5 mg under the skin 1 (one) time per week Active traMADol hydrochloride 50 mg oral tablet (19 sources) Opioid Agonist Start: 02-13-2023 take 1 tablet by mouth every twelve hours as needed for pain traMADOL 50 mg Tab 50 mg = 1 tab(s), Oral, q12hr, PRN for pain, # 30 tab(s) Start Date: 02/13/23 Status: Ordered Start: 07-27-2017 End: 05-05-2022 take 1 tablet by mouth twice daily as needed for pain Tramadol 50 mg Tablet Discontinued 50 MG PO Twice daily as needed for Pain July 27, 2017 12:00am May 05, 2022 10:49am traMADol HCl Not -Taking traMADol HCl Act mili Tylenol Arthritis Pain (4 sources) Tylenol Arthriti s Pain Active ubidecarenone 200 mg oral ca psule (10 sources) Start: 05-05-2022 Coenzyme Q10 ( Co Q-10) 200 mg Capsule Active 200 MG PO Every evening May 05, 2022 1:00am Viactiv Soft Calcium Chews (10 sources) Start: 02-13-2023 Viactiv Soft C alcium Chews Start Date: 02/13/23 Status: Ordered Start: 07-14-2022 Viactiv Soft C alcium Chews 250 mg, Oral, Refill(s) 0 Start Date: 07/14/22 Status: Ordered Start: 07-14-2022 Viactiv Soft C alcium Chews Refill(s) 0 Start Date: 07/14/22 Status: Ordered Vitamin D (6 sources) Vitamin D Active Vitamin D3 (13 sources) Start: 07-14-2022 Vitamin D3 50 mcg, Oral, Thursday, Refills(s) 0 Start Date: 07/14/22 Status: Ordered Start: 07-14-2022 Vitamin D3 Ref ills(s) 0 Start Date: 07/14/22 Status: Ordered Zinc (17 sources) Start: 07-14-2022 take 1 mg by mouth o nce daily Zinc mg, Oral, Daily, Refills(s) 0 Start Date: 07/14/22 Status: Ordered Zinc Active ZINC CITRATE (10 sources) Start: 05-05-2022 Zinc Citrate 1 6.7 mg Tablet,Chewable Active 16 MG PO Every morning May 05, 2022 1:00am Start: 05-05-2022 take 16 mg by mouth once daily in the morning Zinc Citrate Active 16 MG PO Every morning May 05, 2022 1:00am Start: 05-05-2022 take 16 mg by mouth once daily in the morning Zinc Citrate Active 16 MG PO Every morning May 05, 2022 12:00am Zinc Sulfate (19 sources) Zinc Sulfate (ZI NC 15 PO) Zinc Active Completed/Discontinued Medications Medication Drug Class(es) Dates Sig (Normalized) Sig (Original) acetaminophen 650 mg oral tablet (20 sources) Start: 03-31-2023 End: 08-15-2024 take 1 tablet by mouth every eight hours as needed for pain Acetaminophen 650 mg Tablet Discontinued 650 MG PO Q8H as needed for Pain March 31, 2023 1:00am August 15, 2024 10:58am Start: 11-24-2022 End: 12-12-2022 Acetaminophen (Tylenol Arthr itis) 650 mg Tablet Extended Release Discontinued 1300 MG PO Daily at bedtime November 24, 2022 12:00am December 12, 2022 3:11pm Start: 07-14-2022 acetaminophen (Tylenol 8 Hour) 650 MG ER tablet Take by mouth. 07/14/2022 Active Start: 07-27-2017 End: 11-24-2022 take 2 tablets by mouth once daily at bedtime Acetaminophen 500 mg Tablet Discontinued 1000 MG PO Daily at bedtime July 27, 2017 12:00am November 24, 2022 9:59am Start: 07-27-2017 End: 11-24-2022 take 1000 mg by mouth once daily at bedtime Acetaminophen Discontinued 1000 MG PO Daily at bedtime July 27, 2017 12:00am November 24, 2022 9:59am budesonide 0.032 mg/actuat metered dose nasal spray (20 sources) Corticosteroid Start: 07-14-2022 End: 06-12-2024 budesonide ([facility] Budesonide) 32 MCG/ACT nasal spray Refills(s) 0 07/14/2022 06/12/2024 Discontinued Start: 07-14-2022 take 32 ug by inhala tion at bedtime budesonide 32 mcg, Inhalation, Bedtime, Refills(s) 0 Start Date: 07/14/22 Status: Ordered Start: 07-14-2022 budesonide Ref ills(s) 0 Start Date: 07/14/22 Status: Ordered Start: 05-05-2022 End: 08-15-2024 Budesonide 32 mcg/actuation [place],Non-Aerosol Discontinued 2 SPRAY INTRANASAL Daily at bedtime May 05, 2022 1:00am August 15, 2024 10:59am Budesonide (Nasa l) Active calcium carbonate 1250 mg oral tablet (20 sources) Start: 07-27-2017 End: 05-05-2022 take 1 tablet by mouth three times daily Calcium Carbonate (Calcium 500) 500 mg calcium (1,250 mg) Tablet Discontinued 500 MG PO Three times daily July 27, 2017 12:00am May 05, 2022 10:52am calcium carbonat e EX (Tums Extra Strength) 750 MG chewable tablet Chew 300 mg. Active take 1 tablet by vish th every twelve hours Calcium 500 MG 1 tablet with meals Orall y Twice a day for 30 day(s) Active calcium carbonate 1500 mg / cholecalciferol 200 unt oral tablet (10 sources) Vitamin D Start: 05-05-2022 End: 08-13-2023 take 2 tablets by mouth three times daily Calcium Carbonate-Vitamin D3 (Calcium 600 + D(3)) 600 mg-5 mcg (200 unit) Tablet Discontinued 2 TAB PO Three times daily May 05, 2022 1:00am August 13, 2023 2:48pm Carnitine (6 sources) Carnitine Not-Ta tyrese Carnitine Active Cetrizine Hydrochloride (10 sources) Start: 07-27-2017 End: 05-05-2022 take 10 mg by mouth at bedtime Cetrizine Hydrochloride Discontinued 10 MG PO Bedtime July 27, 2017 12:00am May 05, 2022 10:48am Start: 07-27-2017 End: 05-05-2022 take 10 mg by mouth at bedtime Cetrizine Hydrochloride Discontinued 10 MG PO Bedtime July 26, 2017 11:00pm May 05, 2022 9:48am Kan Bozuhf-We-Lkdeyshjapdr-T ea (Apple Cider Vinegar Plus) [phone] ys-jhs-zt-mg Tablet (8 sources) Start: 11-24-2022 End: 03-12-2023 take 1 tablet by mouth once daily in the morning Kan Dnmcdo-Pb-Vlimbqqokzlz-Tea (Apple Cider Vinegar Plus) [phone] ht-wza-dw-mg Tablet Discontinued 1 TAB PO Every morning November 23, 2022 11:00pm March 12, 2023 7:22am Start: 11-24-2022 End: 03-12-2023 take 1 tablet by mouth once daily in the morning Kan [place]-Tea (Apple Ci praveena Vinegar Plus) [phone] st-yhe-ja-mg Tablet Discontinued 1 TAB PO Every morning November 24, 2022 12:00am March 12, 2023 8:22am Start: 11-24-2022 take 1 tablet by vish th once daily in the morning Kan PlataHicaez-Wx-Rngjehupjnzt-Tea (Apple Ci praveena Vinegar Plus) [phone] vl-woe-tm-mg Tablet Active 1 TAB PO Every morning November 24, 2022 12:00am diphenhydrAMINE hydrochloride 25 mg oral tablet (10 sources) Histamine-1 Receptor Antagonist End: 06-12-2024 take 1 tablet by mouth at bedtime diphenhydrAMINE (BENADryl) 25 MG tablet Take 25 mg by mouth at bedtime 06/12/2024 Discontinued Ginseng (10 sources) Start: 07-27-2017 End: 05-05-2022 take 1 capsule by mouth twice daily Ginseng 250 mg Capsule Discontinued 450 MG PO Twice daily July 27, 2017 12:00am May 05, 2022 10:48am Start: 07-27-2017 End: 05-05-2022 take 450 mg by mouth twice daily Ginseng Discontinued 450 MG PO Twice daily July 27, 2017 12:00am May 05, 2022 10:48am Start: 07-27-2017 End: 05-05-2022 take 450 mg by mouth twice daily Ginseng Discontinued 450 MG PO Twice daily July 26, 2017 11:00pm May 05, 2022 9:48am Ginsengs-[place] Jelly 800-200 MG (6 sources) take 2 capsules by mouth twice daily Ginsengs-[place] Jelly 800-200 MG two capsules Orally twice a day Not-Taking take 2 capsules by mouth twice d aily Ginsengs-[place] Jelly 800-200 MG two capsules Orally twice a day Active hydroCHLOROthiazide 12.5 mg / lisinopril 10 mg oral tablet (10 sources) Thiazide Diuretic, Angiotensin Converting Enzyme Inhibitor Start: 07-24-2017 End: 05-05-2022 take 1 tablet by mouth once daily Lisinopril-Hydrochlorothiazide 10-12.5 mg tablet Discontinued 1 TAB PO Daily July 24, 2017 1:00am May 05, 2022 10:27am Inulin-Sorbitol (Fiber Supplement (Inulin)) 2 gram Tablet,Chewable (10 sources) Start: 07-27-2017 End: 03-12-2023 Inulin-Sorbitol (Fiber Supplement (Inulin)) 2 gram Tablet,Chewable Discontinued 1 TAB PO As Directed as needed for Constipation July 27, 2017 12:00am March 12, 2023 8:22am Start: 07-27-2017 End: 03-12-2023 Inulin-Sorbitol (Fiber Suppl ement (Inulin)) 2 gram Tablet,Chewable Discontinued 1 TAB PO As Directed July 26, 2017 11:00pm March 12, 2023 7:22am Start: 07-27-2017 End: 03-12-2023 Inulin-Sorbitol (Fiber Suppl ement (Inulin)) 2 gram Tablet,Chewable Discontinued 1 TAB PO As Directed July 27, 2017 12:00am March 12, 2023 8:22am Start: 07-27-2017 Inulin-Sorbito l (Fiber Supplement (Inulin)) 2 gram Tablet,Chewable Active 1 TAB PO As Directed July 27, 2017 12:00am Start: 07-27-2017 Inulin-Sorbito l (Fiber Supplement (Inulin)) 2 gram Tablet,Chewable Active 1 TAB PO As Directed July 26, 2017 11:00pm Lactobacillus Combination No.4 (Probiotic) 3 billion cell Capsule (10 sources) Start: 07-27-2017 End: 11-24-2022 take 3 capsules by mouth once daily in the evening Lactobacillus Combination No.4 (Probiotic) 3 billion cell Capsule Discontinued 3000 MMU CELLS PO Every evening July 26, 2017 11:00pm November 24, 2022 9:07am Start: 07-27-2017 End: 11-24-2022 take 3 capsules by mouth once daily in the evening Lactobacillus Combination No.4 (Probiotic) 3 billion cell Capsule Discontinued 3000 MMU CELLS PO Every evening July 27, 2017 12:00am November 24, 2022 10:07am Start: 07-27-2017 take 3 capsules by m outh once daily in the evening Lactobacillus Combination No.4 (Probiotic) 3 billion cell Capsule Active 3000 MMU CELLS PO Every evening July 26, 2017 11:00pm levOCARNitine 500 mg oral tablet (20 sources) Carnitine Analog Start: 07-27-2017 End: 08-15-2024 take 1 tablet by mouth once daily in the morning Levocarnitine (L-Carnitine) 500 mg Tablet Discontinued 2000 MG PO Every morning July 27, 2017 12:00am August 15, 2024 11:00am End: 06-12-2024 take 1 capsule by mouth once daily levOCARNitine L-Tartrate (L-Carnitine) 500 MG capsule Take 500 mg by mouth Daily 06/12/2024 Discontinued Methyl Folate 5-Myhf (10 sources) Start: 07-27-2017 End: 08-15-2024 take 5 tablets by mouth two times weekly Methyl Folate 5-Myhf Discontinued 1 TAB PO Twice a Week July 27, 2017 12:00am August 15, 2024 11:00am Start: 07-27-2017 take 5 tablets by mo uth two times weekly Methyl Folate 5-Myhf Active 1 TAB PO Twice a Week July 27, 2017 12:00am Start: 07-27-2017 take 5 tablets by mo uth two times weekly Methyl Folate 5-Myhf Active 1 TAB PO Twice a Week July 26, 2017 11:00pm Mounjaro 2.5 MG/0.5ML soluti on pen-injector (10 sources) Start: 08-27-2023 End: 06-12-2024 Mounjaro 2.5 MG/0.5ML soluti on pen-injector 08/27/2023 06/12/2024 Discontinued Start: 08-27-2023 Mounjaro 2.5 M G/0.5ML solution pen-injector 08/27/2023 Active Multivitamin Capsule (1 source) Start: 07-27-2017 End: 03-31-2023 take 1 capsule by mouth once daily in the morning Multivitamin Capsule Discontinued 1 CAP PO Every morning July 27, 2017 12:00am March 31, 2023 12:57pm [place] 8-Ebm-Iwh-Fish Oil (Fish Oil) 1,000 mg (120 mg-180 mg) Capsule (10 sources) Start: 07-27-2017 End: 12-12-2022 take 1 tablet by mouth three times daily [place] 2-Mrt-Knb-Fish Oil (Fish Oil) 1,000 mg (120 mg-180 mg) Capsule Discontinued 1 TAB PO Three times daily July 26, 2017 11:00pm December 12, 2022 2:11pm Start: 07-27-2017 End: 12-12-2022 take 1 tablet by mouth three times daily [place] 1-Lmz-Vwa-Fish Oil (Fish Oil) 1,000 mg (120 mg-180 mg) Capsule Discontinued 1 TAB PO Three times daily July 27, 2017 12:00am December 12, 2022 3:11pm Start: 07-27-2017 take 1 tablet by vish th three times daily [place] 1-Xfy-Kjz-Fish Oil (Fish Oil) 1,000 mg (120 mg-180 mg) Capsule Active 1 TAB PO Three times daily July 27, 2017 12:00am Start: 07-27-2017 take 1 tablet by vish th three times daily [place] 6-Tbz-Ioc-Fish Oil (Fish Oil) 1,000 mg (120 mg-180 mg) Capsule Active 1 TAB PO Three times daily July 26, 2017 11:00pm phentermine hydrochloride 37.5 mg oral capsule (10 sources) Sympathomimetic Amine Anorectic Start: 07-27-2017 End: 05-05-2022 take 0.5 tablet by mouth once daily Phentermine 37.5 mg Capsule Discontinued 0.5 TAB PO Daily July 27, 2017 12:00am May 05, 2022 10:49am Problems Active Problems Problem Classification Problem Date Documented Da te Episodic/Chronic Acute cerebrovascular disease (20 sources) Cerebrovascular accident; Translations: [Cerebral infarction, unspecified] Onset: 4 12-19-2023 Chronic Biliary tract disease (1 source) Calculus of gallbladder without cholecystitis without obstruction; Translations: [CALCU GB W/O CHOLECYST W/O OBST] Onset: 3 Episodic Cancer of thyroid (19 sources) Malignant tumor of thyroid gland; Translations: [Malignant neoplasm of thyroid gland] Onset: 6 11-26-2022 Chronic Diabetes mellitus without complication (20 sources) Type 2 diabetes mellitus; Translations: [Diabetes mellitus] Onset: 3 07-10-2022 Chronic Comment on above: Type 2 Disorders of lipid metabolism (20 sources) Hyperlipidemia; Translations: [Hyperlipidemia, unspecified] Onset: 3 07-10-2022 Chronic Esophageal disorders (20 sources) Gastroesophageal reflux disease; Translations: [Gastro-esophageal reflux disease without esophagitis] Onset: 3 07-10-2022 Chronic Esophageal disorders (1 source) Esophageal disorders; Translations: [Gastro-esophageal reflux disease without esophagitis] Onset: 3 Essential hypertension (20 sources) Hypertensive disorder; Translations: [Essential (primary) hypertension] Onset: 0 07-10-2022 Chronic Neoplasms of unspecified nature or uncertain behavior (2 sources) Neoplastic disease; Translations: [Neoplasm of unspecified behavior of bone, soft tissue, and skin] 04-12-2024 Episodic Open wounds of head; neck; and trunk (6 sources) Open wound of face; Translations: [Unspecified open wound of other part of head, initial encounter] 06-13-2024 Episodic Osteoarthritis (20 sources) Arthritis; Translations: [Unspecified osteoarthritis, unspecified site] Onset: 3 12-11-2022 Chronic Other and unspecified benign neoplasm (2 sources) Melanocytic nevi of unspecified part of face; Translations: [Benign neoplasm of skin of other and unspecified parts of face] 04-12-2024 Episodic Other bone disease and musculoskeletal deformities (1 source) Other specified disorders of bone density and structure, unspecified site; Translations: [OTH D/O BONE DEN STRUCT UNS SITE] Onset: 3 Episodic Other connective tissue disease (20 sources) History of total knee arthroplasty; Translations: [Presence of unspecified artificial knee joint] Onset: 3 11-26-2022 Chronic Other connective tissue disease (2 sources) Spasm; Translations: [Other muscle spasm] 06-07-2024 Episodic Other diseases of bladder and urethra (1 source) Unspecified urethral stricture, female; Translations: [UNSP URETHRAL STRICTURE FEMALE] Onset: 3 Episodic Other gastrointestinal disorders (6 sources) Loose stool; Translations: [Other fecal abnormalities] Episodic Other non-epithelial cancer of skin (4 sources) Basal cell carcinoma of glabella; Translations: [Basal cell carcinoma of skin of other parts of face] 06-09-2024 Episodic Other nutritional; endocrine; and metabolic disorders (6 sources) Obese class II; Translations: [Body mass index (BMI) 35.0-35.9, adult] Chronic Other nutritional; endocrine; and metabolic disorders (19 sources) Obese class I; Translations: [Class 1 obesity] Onset: 3 11-26-2022 Chronic Other nutritional; endocrine; and metabolic disorders (2 sources) Body mass index 30+ - obesity 03-15-2024 Chronic Other screening for suspected conditions (not mental disorders or infectious disease) (9 sources) Encounter for screening for osteoporosis; Translations: [Encounter for screening for malignant neoplasm of cervix] Onset: 2 Episodic Paralysis (19 sources) Left hemiparesis; Translations: [Hemiplegia, unspecified affecting left nondominant side] Onset: 4 12-19-2023 Chronic Regional enteritis and ulcerative colitis (20 sources) Ulcerative colitis; Translations: [Ulcerative colitis, unspecified, without complications] Onset: 1 Resolved: 2 Chronic Residual codes; unclassified (20 sources) Obstructive sleep apnea syndrome; Translations: [Obstructive sleep apnea (adult) (pediatric)] Onset: 3 07-10-2022 Chronic Residual codes; unclassified (4 sources) Asymptomatic menopausal state; Translations: [ASYMPTOMATIC MENOPAUSAL STATE] Onset: 3 Episodic Residual codes; unclassified (1 source) Family history of malignant neoplasm of breast; Translations: [FAMILY HX MALIG NEOPLASM OF BREAST] Onset: 3 Episodic Residual codes; unclassified (1 source) Family history of malignant neoplasm of trachea, bronchus and lung; Translations: [FAM HX MALIG NEOPLSM TRACH BRON LNG] Onset: 3 Episodic Residual codes; unclassified (1 source) Family history of malignant neoplasm of other organs or systems; Translations: [FAM HX MALIG NEOPLASM OTH ORGN/SYS] Onset: 3 Episodic Spondylosis; intervertebral disc disorders; other back problems (20 sources) Other intervertebral disc degeneration, lumbar region; Translations: [Degeneration of lumbar intervertebral disc] Onset: 3 12-19-2023 Chronic Spondylosis; intervertebral disc disorders; other back problems (2 sources) Lumbosacral radiculopathy; Translations: [Radiculopathy, lumbosacral region] 06-07-2024 Episodic Thyroid disorders (20 sources) Hypothyroidism; Translations: [Other specified hypothyroidism] Onset: 2 07-10-2022 Chronic Unclassified (13 sources) Asymptomatic microscopic hematuria 07-14-2022 Unclassified (1 source) Encounter for screening for malignant neoplasm of colon; Translations: [Encounter for screening for malignant neoplasm of colon] Onset: 3 Unclassified (1 source) Unilateral primary osteoarthritis, right knee; Translations: [Unilateral primary osteoarthritis, right knee] Onset: 3 Unclassified (1 source) Encounter for preprocedural laboratory examination; Translations: [Encounter for preprocedural laboratory examination] Onset: 3 Unclassified (3 sources) Patient encounter status 10-05-2023 Past or Other Problems Problem Classification Problem Date Documented Date Episodic/Chronic Alcohol-related disorders (19 sources) Alcohol abuse; Translations: [Alcohol abuse, uncomplicated] Onset: 11-26-2022 Resolved: 12-25-2022 12-25-2022 Chronic Calculus of urinary tract (20 sources) Calculus of kidney; Translations: [Kidney stone] Onset: 07-31-2022 Episodic Genitourinary symptoms and ill-defined conditions (14 sources) Urge incontinence; Translations: [Urge incontinence of urine] Onset: 02-18-2024 Resolved: 06-12-2024 Chronic Genitourinary symptoms and ill-defined conditions (20 sources) Incomplete emptying of bladder; Translations: [Asymptomatic microscopic hematuria] Onset: 01-29-2022 Resolved: 06-12-2024 07-14-2022 Episodic Inflammatory diseases of female pelvic organs (12 sources) Abscess of labia; Translations: [Abscess of vulva] Onset: 06-12-2024 Resolved: 06-12-2024 03-15-2024 Episodic Other aftercare (1 source) Other shelter (current) drug therapy; Translations: [OTH GETTERING OPERATOR CURRENT DRUG THERAPY] Onset: 01-30-2022 Episodic Other aftercare (1 source) long term care 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; 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] Onset: 01-30-2022 Episodic Other connective tissue disease (19 sources) Spasticity; Translations: [Cramp and spasm] Onset: 12-19-2023 12-19-2023 Episodic Other nervous system disorders (19 sources) Paresthesia; Translations: [Paresthesia of skin] Onset: 12-19-2023 12-19-2023 Episodic Other non-traumatic joint disorders (19 sources) Pain in left knee; Translations: [Pain in joint, lower leg] Onset: 11-12-2023 11-12-2023 Episodic Other skin disorders (13 sources) Changes in skin texture; Translations: [Changes in skin texture] Onset: 06-12-2024 Resolved: 06-12-2024 02-09-2024 Episodic Residual codes; unclassified (2 sources) Other specified postprocedural states; Translations: [OTH SPECIFIED POSTPROCEDURAL STATES] Onset: 01-30-2022 Episodic Urinary tract infections (20 sources) Urinary tract infectious disease; Translations: [Urinary tract infection, site not specified] Onset: 05-19-2022 07-14-2022 Episodic Results Test Name Value Interpretation Reference Range Facil ity No Panel Informationon 06-08 Consent obtained: written (The rationale for Mohs as well as the risks, benefits, and alternatives. The risks of infection, scarring, bleeding, prolonged wound healing, incomplete removal, allergy to anesthesia or meds, nerve injury, and recurrence were addressed.) [place] Protocol: Procedure explained and questions answered to patient or proxy's satisfaction: Yes Test results available and properly labeled: Yes Pathology report reviewed: Yes Photo or diagram used for site identification: Yes (From pt's phone) Site/side marked: Yes Anticoagulation: Is the patient taking prescription anticoagulant and/or aspirin prescribed/recommended by a physician? Yes (81 mg ASA) Was the anticoagulation regimen changed prior to Mohs? No Anesthesia: Anesthesia method: local infiltration Local anesthetic: lidocaine 1% WITH epi and sodium bicarbonate Procedure Details: Biopsy accession number: [id number] Biopsy lab: [facility] Date of biopsy: 04/12/2024 Frozen section biopsy performed: Yes Specimen debulked: No Pre-Op diagnosis: basal cell carcinoma BCC subtype: nodular MohsAIQ Surgical site (if tumor spans multiple areas, please select predominant area): forehead (non-eyebrow) Surgery side: midline Surgical site (from skin exam): Glabella Pre-operative length (cm): 0.5 Pre-operative width (cm): 0.5 Indications for Mohs surgery: anatomic location where tissue conservation is critical Other indications for Mohs surgery: Central face Previously treated? No Mohs Appropriate Use Criteria Score: 7 Details of micrographic surgery: Mohs accession number: [id number] Micrographic Surgery Details: Post-operative length (cm): 1.4 Post-operative width (cm): 1.1 Number of Mohs stages: 3 Stage 1 Comments: The area was prepped with Betadine, draped in a sterile fashion, and infiltrated with local anesthetic. Sterile technique was used throughout the procedure. The marked area of clinical tumor with a small rim of clinically normal surrounding skin was removed using Mohs technique with beveled edges. Hash salvador were placed for orientation of the specimen. Hemostasis was achieved with electrodessication. After hemostasis, the defect was measured and recorded, a temporary sterile dressing was placed over the wound, and the patient was escorted to the waiting area. The specimen was oriented, mapped, and if necessary, divided into sections. A Mohs map was prepared. The specimen was placed in a labeled tina dish and was taken to the Mohs lab where it was chromacoded and processed. Mohs sections were prepared with serial tissue sections, stained, and evaluated by Dr. James for interpretation of deep and peripheral margins. The Mohs map was marked accordingly. Amount of lidocaine used: 1.3 cc Estimated blood loss: < 1.0 cc Defect size: 1.1 x 1.0 cm Number of blocks per stage: 1 Number of positive blocks: 1 Tumor features identified on Mohs section: basal carcinoma Tumor features identified on Mohs section comment: nodular pattern Depth of defect after stage: dermis Stage 2 Comments: The patient returned to the procedure room, the dressing was removed, the tumor area was re-prepped and draped, and anesthesia was assessed and augmented as necessary. A layer of tissue around the positive margin(s) was removed, and the tissue was oriented, mapped, and processed in an identical fashion as for Stage 1. Hemostasis was achieved and dressing placed as in Stage 1. The patient was escorted to the waiting area. As with Stage 1, Mohs sections were prepared with serial tissue sections, stained, and evaluated by Dr. James for interpretation of deep and peripheral margins. The Mohs map was updated. Assistants: Anthony Ortiz LPN Amount of lidocaine used: 1.0 cc Estimated blood loss: < 1.0 cc Defect size: 1.1 x 1.0 cm Number of blocks: 1 Number of positive blocks: 1 Tumor features identified on Mohs section: basal carcinoma Tumor features identified on Mohs section comment: nodular pattern Depth of defect after stage: dermis Stage 3 Comments: The patient returned to the procedure room, the dressing was removed, the tumor area was re-prepped and draped, and anesthesia was assessed and augmented as necessary. A layer of tissue around the positive margin(s) was removed, and the tissue was oriented, mapped, and processed in an identical fashion as for Stage 1. Hemostasis was achieved and dressing placed as in Stage 1. The patient was escorted to the waiting area. As with Stage 1, Mohs sections were prepared with serial tissue sections, stained, and evaluated by Dr. James for interpretation of deep and peripheral margins. The Mohs map was updated. Assistants: Raoul Alves LPN Amount of lidocaine used: 1.5 cc Estimated blood loss: < 1.0 cc Defect size: 1.4 x 1.1 cm Number of blocks: 1 Number of positive blocks: 0 (more content not included)... [employer] No Panel InformationOrdered By: Paige Sepulveda on 06-08-2024 [email or web address] [email or web address] CHEMISTRYOrdered By: SYSTEM SYSTEM on 05-26-2024 Albumin [Mass/Vol] 3.9 g/dL Normal 3.3 - 5.0 gm/dL R emisol Chem Albumin DL <= 20 mg/L (U) [Mass/Vol] 0.9 mg/dL Normal 0.0 - 1.9 mg/dL [facility] Albumin/Creatinine DL <= 20 mg/L (U) [Mass ratio] 21.6 mg/gm Cr Normal 0.0 - 30.0 mg/gm Cr [facility] Comment on above: Interpretive Data: 3 0-300 mg/g Cr indicates an increased risk for diabetic nephropathy. >300 mg/g Cr is consistent with clinical nephropathy. Albumin/Globulin [Mass ratio] 1.0 {ratio} Low 1.1 - 2.2 [facility] ALP [Catalytic activity/Vol] 57 [iU]/d Normal 21 - 98 Int._Unit/L [facility] ALT No additional P-5'-P [Catalytic activity/Vol] 17 [iU]/d Normal 6 - 46 Int._Unit/L [facility] Anion gap [Moles/Vol] 11 mmol/L Normal 6 - 16 mEq/L R emisol Chem AST [Catalytic activity/Vol] 18 [iU]/d Normal 5 - 43 Int._Unit/L [facility] Bilirubin [Mass/Vol] 0.6 mg/dL Normal 0.0 - 1.1 mg/dL [facility] Calcium [Mass/Vol] 9.1 mg/dL Normal 8.9 - 11.1 mg/dL [facility] Chloride [Moles/Vol] 98 mmol/L Low 101 - 111 mmol/ L [facility] Cholesterol [Mass/Vol] 161 mg/dL Normal 120 - 200 mg/dL [facility] Cholesterol in HDL [Mass/Vol] 71 mg/dL Invalid Interpretation Code [facility] Comment on above: Result Comment: '>= 60 LOW RISK' '<= 40 HIGH RISK' Cholesterol in LDL [Mass/Vol] 82 mg/dL Normal <=129mg/dL [facility] Cholesterol in VLDL [Mass/Vol] 12 mg/dL Normal 7 - 40 mg/dL [facility] CO2 [Moles/Vol] 29 mmol/L Normal 21 - 31 mmol/L Remis ol Chem Creatinine [Mass/Vol] 0.8 mg/dL Normal 0.5 - 1.3 mg/d L [facility] eGFR 78 mL/min/1.73 m2 Normal >=59mL/min /1.73 m2 [facility] Globulin (S) [Mass/Vol] 3.8 g/dL Normal 1.4 - 4.0 gm/dL [facility] Glucose [Mass/Vol] 77 mg/dL Normal 55 - 199 mg/dL Re misol Chem Potassium [Moles/Vol] 3.8 mmol/L Normal 3.5 - 5.3 mmol /L [facility] Protein [Mass/Vol] 7.7 g/dL Normal 6.0 - 7.8 gm/dL R emisol Chem Sodium [Moles/Vol] 134 mmol/L Low 135 - 145 mmol/L [facility] Triglyceride [Mass/Vol] 58 mg/dL Normal <=149mg/dL [facility] TSH Qn 0.82 m[IU]/L Normal 0.34 - 5.60 mcIU/mL [facility] U Creatinine 41.7 mg/dL Invalid Interpretation Code [facility] Urea nitrogen [Mass/Vol] 18 mg/dL Normal 5 - 21 mg/dL [facility] Urea nitrogen/Creatinine [Mass ratio] 22 mg/mg High 10 - 20 [facility] CHEMISTRYOrdered By: Ciara Perez on 05-26-2024 HbA1c (Bld) [Mass fraction] 5.4 % Normal <=5.9% [facility] ChemAutoSS CMPon 05-26-2024 Albumin [Mass/Vol] 3.9 g/dL Normal 3.3-5.0 [facility] Comment on above: Performed By: #### 2 [id number] #### [facility] [address] [place] [address] Albumin/Globulin (S) [Mass conc ratio] 1.0 Low 1.1-2.2 [facility] Comment on above: Performed By: #### 2 [id number] #### [facility] [address] [place] [address] ALP [Catalytic activity/Vol] 57 Int._Unit/L Normal 21-98 [facility] Comment on above: Performed By: #### 2 [id number] #### [facility] [address] [place] [address] ALT No additional P-5'-P [Catalytic activity/Vol] 17 Int._Unit/L Normal 6-46 [facility] Comment on above: Performed By: #### 2 [id number] #### [facility] [address] [place] [address] Anion gap [Moles/Vol] 11 mmol/L Normal 6-16 [facility] Comment on above: Performed By: #### 2 [id number] #### [facility] [address] [place] [address] AST [Catalytic activity/Vol] 18 Int._Unit/L Normal 5-43 [facility] Comment on above: Performed By: #### 2 [id number] #### [facility] [address] [place] [address] Bilirubin [Mass/Vol] 0.6 mg/dL Normal 0.0-1.1 [facility] Comment on above: Performed By: #### 2 [id number] #### [facility] [address] [place] [address] Calcium [Mass/Vol] 9.1 mg/dL Normal 8.9-11.1 [facility] Comment on above: Performed By: #### 2 [id number] #### [facility] [address] [place] [address] Chloride [Moles/Vol] 98 mmol/L Low 101-111 [facility] Comment on above: Performed By: #### 2 [id number] #### [facility] [address] [place] [address] CO2 [Moles/Vol] 29 mmol/L Normal 21-31 [facility] Comment on above: Performed By: #### 2 [id number] #### [facility] [address] [place] [address] Creatinine [Mass/Vol] 0.8 mg/dL Normal 0.5-1.3 [facility] Comment on above: Performed By: #### 2 [id number] #### [facility] [address] [place] [address] Globulin (S) [Mass/Vol] 3.8 g/dL Normal 1.4-4.0 [facility] Comment on above: Performed By: #### 2 [id number] #### [facility] [address] [place] [address] Glucose [Mass/Vol] 77 mg/dL Normal 55-199 [facility] Comment on above: Performed By: #### 2 [id number] #### [facility] [address] [place] [address] Potassium [Moles/Vol] 3.8 mmol/L Normal 3.5-5.3 [facility] Comment on above: Performed By: #### 2 [id number] #### [facility] [address] [place] [address] Protein [Mass/Vol] 7.7 g/dL Normal 6.0-7.8 [facility] Comment on above: Performed By: #### 2 [id number] #### [facility] [address] [place] [address] Sodium [Moles/Vol] 134 mmol/L Low 135-145 [facility] Comment on above: Performed By: #### 2 [id number] #### [facility] [address] [place] [address] Urea nitrogen [Mass/Vol] 18 mg/dL Normal 5-21 [facility] Comment on above: Performed By: #### 2 [id number] #### [facility] [address] [place] [address] Urea nitrogen/Creatinine [Mass ratio] 22 No Units High 10-20 [facility] Comment on above: Performed By: #### 2 [id number] #### [facility] [address] [place] [address] [id number] 05-26-2024 HbA1c (Bld) [Mass fraction] 5.4 % Normal <=5.9 [facility] Comment on above: Performed By: #### 7 [id number] #### [facility] [address] [place] [address] Lipid Panelon 05-26-2024 Cholesterol [Mass/Vol] 161 mg/dL Normal 120-200 [facility] Comment on above: Performed By: #### 2 [id number] #### [facility] [address] [place] [address] Cholesterol in HDL [Mass/Vol] 71 mg/dL Invalid Interpretation Code [facility] Comment on above: Result Comment: '>= 60 LOW RISK' '<= 40 HIGH RISK' Performed By: #### 2 [id number] #### [facility] [address] [place] [address] Cholesterol in LDL [Mass/Vol] 82 mg/dL Normal <=129 [facility] Comment on above: Performed By: #### 2 [id number] #### [facility] [address] [place] [address] Cholesterol in VLDL [Mass/Vol] 12 mg/dL Normal 7-40 [facility] Comment on above: Performed By: #### 2 [id number] #### [facility] [address] [place] [address] Triglyceride [Mass/Vol] 58 mg/dL Normal <=149 [facility] Comment on above: Performed By: #### 2 [id number] #### [facility] [address] [place] [address] TSHon 05-26-2024 TSH Qn 0.82 m[IU]/L Normal 0.34-5.60 [facility] Comment on above: Performed By: #### 2 [id number] #### [facility] [address] [place] [address] U MA/Cr Ratioon 05-26-2024 Albumin DL <= 20 mg/L (U) [Mass/Vol] 0.9 mg/dL Normal 0.0-1.9 [facility] Comment on above: Performed By: #### 1 [id number] #### [facility] [address] [place] [address] Albumin/Creatinine DL <= 20 mg/L (U) [Mass ratio] 21.6 mg/gm Cr Normal .0-30.0 [facility] Comment on above: Result Comment: 30-3 00 mg/g Cr indicates an increased risk for diabetic nephropathy. >300 mg/g Cr is consistent with clinical nephropathy. Performed By: #### 1 [id number] #### [facility] [address] [place] [address] U Creatinine 41.7 mg/dL Invalid Interpretation Code [facility] Comment on above: Performed By: #### 1 [id number] #### [facility] [address] [place] [address] eGFRon 05-26-2024 eGFR 78 mL/min/1.73 m2 Normal >=59 [facility] Comment on above: Performed By: #### 1 [id number] #### [facility] [address] [place] [address] Ambulatory Visit Summaryon 0 05-19-2024 Ambulatory Visit Summary Ambulatory Visit Summary GIA RUIZ :1950 Visit Date:05/16/2024 Ambulatory Visit Instructions Your Diagnosis Encounter for subsequent annual wellness visit (AWV) in Medicare patient Type II diabetes mellitus HTN (hypertension) Hyperlipidemia Hypothyroidism GERD (gastroesophageal reflux disease) Obesity due to excess calories Your Care Team Attending Physician - Bambi Reynolds Primary Care Physician - Bambi Reynolds This Is Your Medications List Misc Prescription (BACLOFEN 10 MG TABLET) Non-Formulary Medication (calcium chew) Non-Formulary Medication (probiotic with prebiotic) acetaminophen (acetaminophen 650 mg oral tablet, extended release) adalimumab (Humira 40 mg/0.8 mL subcutaneous kit) ascorbic acid (Vitamin C) aspirin (aspirin 81 mg Oral EC Tab) atorvastatin (atorvastatin 20 mg Tab) cholecalciferol (Vitamin D3) cranberry hydrochlorothiazide-lo sartan (hydrochlorothiazide-l osartan 25 mg-100 mg Tab) iron polysaccharide (Ferrex-150 oral capsule) levothyroxine (levothyroxine 125 mcg (0.125 mg) Tab) liothyronine (liothyronine 5 mcg Tab) magnesium gluconate (magnesium gluconate 500 mg oral tablet) melatonin metformin (metformin 500 mg ER Tab) methylcobalamin (Methyl B-12) multivitamin with iron (Iron 100 Plus) omega-3 polyunsaturated fatty acids (Fish Oil) omeprazole (omeprazole 20 mg Cap-DR) ondansetron (ondansetron 8 mg Tab) tirzepatide (Mounjaro 2.5 mg/0.5 mL subcutaneous solution) ubiquinone (CoQ10) zinc sulfate (Zinc) Procedures Performed Appendectomy, Arthroscopy of knee, Arthroscopy, knee, surgical; with meniscus repair (medial OR lateral), Cervical polypectomy, Colonoscopy, Cyst, Cystoscopy, Hysterectomy, Thyroidectomy. Discharge Vitals Heart Rate (Peripheral) 68 Blood Pressure 130/76 Height 158 cm Height 62 in Weight 87.9 kg Weight 193.786 lb BMI 35.21 What to do next Scheduled Follow-Up Appointments 2024 9:00 AM EST With: Where: [address] [address]- Thursday 10:00 AM EDT With: Bambi Reynolds Where: [address] [address]- Thursday 11:00 AM EDT With: Bertha BLAND MD Where: [facility] [address] [place] [address]- Thursday 1:00 PM EST With: Where: [address] [address]- You Need to Complete the Following Comprehensive Metabolic Panel, Blood, Routine collect, 05/16/24, Order for future visit, Lab Collect, HTN (hypertension), Not Required, Print Label By Order Location HgbA1c, Blood, Routine collect, 05/16/24, Order for future visit, Lab Collect, Type II diabetes mellitus, Required & Missing, Print Label By Order Location Lipid Panel, Blood, Routine collect, 05/16/24, Order for future visit, Lab Collect, Hyperlipidemia, Required & Missing, Print Label By Order Location Thyroid Stimulating Hormone, Blood, Routine collect, 05/16/24, Order for future visit, Lab Collect, Hypothyroidism, Required & Missing, Print Label By Order Location Urine Microalbumin/Creatinin e Ratio, Urine, Routine collect, 05/16/24, Order for future visit, Nurse collect, HTN (hypertension), Not Required, Print Label By Order Location Medications What How Much When Instructions Unchanged acetaminophen (acetaminophen 650 mg oral tablet, extended release) By Mouth Every 8 hours Unchanged adalimumab (Humira 40 mg/ 0.8 mL subcutaneous kit) 0.8 Milliliter Subcutaneous Every other week Unchanged ascorbic acid (Vitamin C) Every day Unchanged aspirin (aspirin 81 mg Oral EC Tab) By Mouth Every day Unchanged atorvastatin (atorvastatin 20 mg Tab) 1 Tablets By Mouth Every day Duration: 90 Days Unchanged cholecalciferol (Vitamin D3) 50 Microgram By Mouth Thursday Unchanged cranberry Unchanged hydrochlorothiazide-lo sartan (hydrochlorothiazide-l osartan 25 mg-100 mg Tab) See instructions TAKE 1 TABLET DAILY Unchanged iron polysaccharide (Ferrex-150 oral capsule) 1 Capsules By Mouth Every day Unchanged levothyroxine (levothyroxine 125 mcg (0.125 mg) Tab) 1 Tablets By Mouth Every day Unchanged liothyronine (liothyronine 5 mcg Tab) 1 Tablets By Mouth Every day Unchanged magnesium gluconate (magnesium gluconate 500 mg oral tablet) By Mouth 2 times a day Unchanged melatonin Once a day (at bedtime) Unchanged metformin (metformin 500 mg ER Tab) 1 Tablets By Mouth 3 times a day Unchanged methylcobalamin (Methyl B-12) See instructions 5 mg Chewed Unchanged Misc Prescription (BACLOFEN 10 MG TABLET) 0 Unchanged multivitamin with iron (Iron 100 Plus) 1 Tablets By Mouth Every day Unchanged Non-Formulary Medication (calc (more content not included)... Normal [facility] Family Medicine Office/Clini c Noteon 05-19-2024 Family Medicine Office/Clinic Note Family Medicine Office/Clinic Note Chief Complaint Subsequent Medicare Wellness Review of Systems PHQ Score Initial Depression Screen Score: 0 SCORE Physical Exam Vitals & Measurements HR: 68(Peripheral) BP: 130/76 SpO2: 98% HT: 158 cm HT: 62 in WT: 87.9 kg WT: 193.786 lb BMI: 35.21 Assessment/Plan 1. Encounter for subsequent annual wellness visit (AWV) in Medicare patient (Z00.00: Encounter for general adult medical examination without abnormal findings) The patient was given a customized and personalized print out of all the current AHRQ USPSTF???s recommendations for preventative services and all current CDC recommended immunizations, relevant risk recommendations and the following patient brochures were given. Reviewed Medicare Prevention Services checklist. CDC-Falls Prevention and home safety screening reviewed. Patient reports one fall in last 12 months, voices no worry about falling. Exhibits no problems with sitting, standing or ambulation. Patient aware with keeping walk way area free of clutter to prevent tripping and/or falling. [place] Advance Directives reviewed. Documents present in chart. Patient denies any problems with ADL???s and Instrumental ADL???s. Cognitive screening completed with memory and clock face drawing. No deficits noted. Patient recited 2/3 memory words. Immunization record reviewed, discussed Shingrix vaccine with educational handout and availability. 2 COVID vaccines have been administered, with 2 Boosters received. Allergies and medications reviewed and up to date. No concerns with taking medication as prescribed. Reviewed OTC medications, medication list up to date. Blood tests were reviewed: Discussed what tests need to be updated. Labs were ordered, will have completed prior to next PCP visit. Labs to be completed with [facility]. No concerns with bowel/ bladder. Colonoscopy last completed 02/20/2023 with a repeat due 2025. Reviewed pain symptoms: chronic right hip pain, rates pain as a 3 out of 10, Tylenol taken for pain. Reviewed all outside providers that patient follows. Last visit summary notes available in chart and/or have been requested. Patient declines any signs or symptoms of depression at this time. 8 minutes spent with screening and documentation. PHQ2 screening score 0. Patient drinks alcohol monthly or less 1-2 drinks, denies concerns. 8 minutes spent with screening and documentation. Audit score 1. Follow up scheduled with PCP, 08/29/2024 AWV has been scheduled, 05/16/2025 Medicare provides yearly screening for alcohol and depression concerns. This is completed during our Medicare wellness visit for those who do not have a current diagnosis of depression or concerns with alcohol use. I spent a total of 17 minutes on this date of service which included preparing to see the patient, face to face patient care, completing clinical documentation, obtaining and/or reviewing separately obtained history, counseling and educating the patient with handouts. Explanations were provided with reviewing questionnaires. AUDIT risk assessment screening completed, risk score 1 with patient denying concerns with use. Completed PHQ-2 risk assessment for depression with risk score 0, negative findings. Patient has been reminded to notify the provider if there would be a change or concerns with symptoms with fear, unable to sleep, worrying too much or feeling down and/or sad with lost of interest with daily activities. Will continue to monitor with screening yearly during Medicare wellness visits. 2. Type II diabetes mellitus (E11.9: Type 2 diabetes mellitus without complications) Patient is compliant on current DM medications: Metformin. Patient does not monitor BS at home: DM stoplight handout reviewed with s/s to monitor for and report to PCP. Discussed ADA dietary recommendations with low carbs and reduce sugar intake. Patient encouraged to increase daily physical activity, adequate water intake and maintain a healthy weight. Follows up [facility] for yearly DM eye exams, last visit notes available in chart for review. A1C ordered. 3. HTN (hypertension) (I10: Essential (primary) hypertension) Patient is taking hctz-losartan daily as directed. Does not monitor BP pressure at home. HTN stoplight reviewed with BP goal to be <140/90. Reviewed different factors that can alter blood pressure readings. Education handout provided with s/s to monitor for and report to provider. Patient is encouraged to increase portions of fruit, vegetables, fiber and increase exercise as much as tolerable. Reviewed importance with monitoring foods high in salt content and encouraged to limit intake, if unsure encouraged to discuss with their PCP. Encouraged to eat more chicken, fish and lean white meats and limits red meats in diet. Discussed importance with keeping BP under good control to reduce CVA risk factors. Will continue to f/u with PCP during office visits and as needed. CMP and Urine creatinine and microalbumin ordered. 4. Hyp (more content not included)... Normal [facility] Comment on above: Result Comment: Elec tronically Signed By: Bambi Reynolds\.br\Date and Time Signed: 05/19/24 08:27 EST\.br\Electronically Co-Signed By: Padmini Childs\.br\Date and Time Co-Signed: 05/16/24 15:11 EST No Panel Informationon 04-12 Type of biopsy: tangential Informed consent: discussed and consent obtained Informed consent comment: The risks and benefits of the biopsy were discussed. Risks include but are not limited to bleeding, infection, scarring, pain, and nerve damage. An opportunity to ask questions prior to the procedure was permitted and all questions were answered. Patient was prepped and draped in usual sterile fashion: area cleansed with alcohol. Anesthesia: the lesion was anesthetized in a standard fashion Anesthetic: 1% lidocaine w/ epinephrine 1-100,000 buffered w/ 8.4% NaHCO3 Instrument used: DermaBlade Hemostasis achieved with: electrodesiccation Outcome: patient tolerated procedure well Outcome comment: The specimen was placed in a prelabeled formalin container to be sent for pathology Post-procedure details: sterile dressing applied and wound care instructions given Post-procedure details comment: Emphasized need to contact clinic for any signs of infection, uncontrollable bleeding, or complications. Dressing type: bandage Additional details: Photo taken Amount of lidocaine used: 0.5 cc [facility] No Panel InformationOrdered By: Jocelin Garcia on 04-12-2024 [facility] Ambulatory Visit Summaryon 1 Ambulatory Visit Summary Ambulatory Visit Summary GIA RUIZ :1950 Visit Date:03/15/2024 Ambulatory Visit Instructions Your Diagnosis Labial abscess Former smoker BMI 35.0-35.9,adult Obesity (BMI 35.0-39.9 without comorbidity) Your Care Team Attending Physician - Bambi Reynolds Primary Care Physician - Bambi Reynolds This Is Your Medications List Misc Prescription (BACLOFEN 10 MG TABLET) acetaminophen (acetaminophen 650 mg oral tablet, extended release) adalimumab (Humira 40 mg/0.8 mL subcutaneous kit) ascorbic acid (Vitamin C) aspirin (aspirin 81 mg Oral EC Tab) atorvastatin (atorvastatin 20 mg Tab) cholecalciferol (Vitamin D3) cranberry hydrochlorothiazide-lo sartan (hydrochlorothiazide-l osartan 25 mg-100 mg Tab) iron polysaccharide (Ferrex-150 oral capsule) levothyroxine (levothyroxine 125 mcg (0.125 mg) Tab) liothyronine (liothyronine 5 mcg Tab) magnesium gluconate (magnesium gluconate 500 mg oral tablet) melatonin metformin (metformin 500 mg ER Tab) methylcobalamin (Methyl B-12) multivitamin with iron (Iron 100 Plus) omega-3 polyunsaturated fatty acids (Fish Oil) omeprazole (omeprazole 20 mg Cap-DR) ondansetron (ondansetron 8 mg Tab) tirzepatide (Mounjaro 2.5 mg/0.5 mL subcutaneous solution) ubiquinone (CoQ10) zinc sulfate (Zinc) Procedures Performed Appendectomy, Arthroscopy of knee, Arthroscopy, knee, surgical; with meniscus repair (medial OR lateral), Cervical polypectomy, Colonoscopy, Cyst, Cystoscopy, Hysterectomy, Thyroidectomy. Discharge Vitals Temperature (Tympanic) 36.9 ???C Heart Rate (Peripheral) 81 Respiratory Rate 18 Blood Pressure 140/82 Height 158 cm Height 62 in Weight 87.9 kg Weight 193.38 lb BMI 35.21 What to do next Scheduled Follow-Up Appointments 2023 1:00 PM EST With: Where: [facility] [address] [address]- Thursday 11:00 AM EDT With: EDWINA MOSLEY, Bertha Vu Where: [facility] [address] [place] [address]- Medications What How Much When Instructions Unchanged acetaminophen (acetaminophen 650 mg oral tablet, extended release) By Mouth Every 8 hours Unchanged adalimumab (Humira 40 mg/ 0.8 mL subcutaneous kit) 0.8 Milliliter Subcutaneous Every other week Unchanged ascorbic acid (Vitamin C) Every day Unchanged aspirin (aspirin 81 mg Oral EC Tab) By Mouth Every day Unchanged atorvastatin (atorvastatin 20 mg Tab) 1 Tablets By Mouth Every day Duration: 90 Days Unchanged cholecalciferol (Vitamin D3) 50 Microgram By Mouth Thursday Unchanged cranberry Unchanged hydrochlorothiazide-lo sartan (hydrochlorothiazide-l osartan 25 mg-100 mg Tab) See instructions TAKE 1 TABLET DAILY Unchanged iron polysaccharide (Ferrex-150 oral capsule) 1 Capsules By Mouth Every day Unchanged levothyroxine (levothyroxine 125 mcg (0.125 mg) Tab) 1 Tablets By Mouth Every day Unchanged liothyronine (liothyronine 5 mcg Tab) 1 Tablets By Mouth Every day Unchanged magnesium gluconate (magnesium gluconate 500 mg oral tablet) By Mouth 2 times a day Unchanged melatonin Once a day (at bedtime) Unchanged metformin (metformin 500 mg ER Tab) 1 Tablets By Mouth 3 times a day Unchanged methylcobalamin (Methyl B-12) See instructions 5 mg Chewed Unchanged Misc Prescription (BACLOFEN 10 MG TABLET) 0 Unchanged multivitamin with iron (Iron 100 Plus) 1 Tablets By Mouth Every day Unchanged omega-3 polyunsaturated fatty acids (Fish Oil) 1,200 Milligram By Mouth Every day Unchanged omeprazole (omeprazole 20 mg Cap-DR) See instructions TAKE 1 CAPSULE DAILY Unchanged ondansetron (ondansetron 8 mg Tab) 1 Tablets By Mouth Every 8 hours TAKE 1 TABLET BY MOUTH EVERY 8 HOURS NEEDED FOR NAUSEA Unchanged tirzepatide (Mounjaro 2.5 mg/ 0.5 mL subcutaneous solution) 2.5 Milligram Subcutaneous Every week INJECT 2.5MG SUBCUTANEOUSLY EVERY WEEK Unchanged ubiquinone (CoQ10) By Mouth Every day Unchanged zinc sulfate (Zinc) By Mouth Every day Allergies Bactrim DS (Rash) Percocet (Hallucinations) Problems Ongoing - Any problem that you are currently receiving treatment for. Asymptomatic microscopic hematuria BMI 35.0-35.9,adult Dysuria GERD (gastroesophageal reflux disease) HTN (hypertension) Hyperlipidemia Hypothyroidism Incomplete bladder emptying Kidney stone Labial abscess Obesity (BMI 35.0-39.9 without comorbidity) JOSE RAMON (obstructive sleep apnea) Pre-op exam Skin texture changes Type II diabetes mellitus Urge incontinence Urinary frequency UTI (urinary tract infection) Patient Survey You may receive a survey via text or e-mail asking about your office visit. Please share your experience with us by completing your survey. We appreciate your feedback and thank you for choosing us for your care. [facility] Ambulatory Visit Summary Ambulatory Visit Summary GIA RUIZ :1950 Visit Date:03/15/2024 Ambulatory Visit Instructions Your Diagnosis Labial abscess Former smoker BMI 35.0-35.9,adult Obesity (BMI 35.0-39.9 without comorbidity) Your Care Team Attending Physician - Bambi Reynolds Primary Care Physician - Bambi Reynolds This Is Your Medications List Misc Prescription (BACLOFEN 10 MG TABLET) acetaminophen (acetaminophen 650 mg oral tablet, extended release) adalimumab (Humira 40 mg/0.8 mL subcutaneous kit) ascorbic acid (Vitamin C) aspirin (aspirin 81 mg Oral EC Tab) atorvastatin (atorvastatin 20 mg Tab) cholecalciferol (Vitamin D3) cranberry hydrochlorothiazide-lo sartan (hydrochlorothiazide-l osartan 25 mg-100 mg Tab) iron polysaccharide (Ferrex-150 oral capsule) levothyroxine (levothyroxine 125 mcg (0.125 mg) Tab) liothyronine (liothyronine 5 mcg Tab) magnesium gluconate (magnesium gluconate 500 mg oral tablet) melatonin metformin (metformin 500 mg ER Tab) methylcobalamin (Methyl B-12) multivitamin with iron (Iron 100 Plus) omega-3 polyunsaturated fatty acids (Fish Oil) omeprazole (omeprazole 20 mg Cap-DR) ondansetron (ondansetron 8 mg Tab) tirzepatide (Mounjaro 2.5 mg/0.5 mL subcutaneous solution) ubiquinone (CoQ10) zinc sulfate (Zinc) Procedures Performed Appendectomy, Arthroscopy of knee, Arthroscopy, knee, surgical; with meniscus repair (medial OR lateral), Cervical polypectomy, Colonoscopy, Cyst, Cystoscopy, Hysterectomy, Thyroidectomy. Discharge Vitals Temperature (Tympanic) 36.9 ???C Heart Rate (Peripheral) 81 Respiratory Rate 18 Blood Pressure 140/82 Height 158 cm Height 62 in Weight 87.9 kg Weight 193.38 lb BMI 35.21 What to do next Scheduled Follow-Up Appointments 2023 1:00 PM EST With: Where: [facility] [address] [address]- Thursday 11:00 AM EDT With: Bertha BLAND MD Where: [facility] [address] [place] [address]- Medications What How Much When Instructions Unchanged acetaminophen (acetaminophen 650 mg oral tablet, extended release) By Mouth Every 8 hours Unchanged adalimumab (Humira 40 mg/ 0.8 mL subcutaneous kit) 0.8 Milliliter Subcutaneous Every other week Unchanged ascorbic acid (Vitamin C) Every day Unchanged aspirin (aspirin 81 mg Oral EC Tab) By Mouth Every day Unchanged atorvastatin (atorvastatin 20 mg Tab) 1 Tablets By Mouth Every day Duration: 90 Days Unchanged cholecalciferol (Vitamin D3) 50 Microgram By Mouth Thursday Unchanged cranberry Unchanged hydrochlorothiazide-lo sartan (hydrochlorothiazide-l osartan 25 mg-100 mg Tab) See instructions TAKE 1 TABLET DAILY Unchanged iron polysaccharide (Ferrex-150 oral capsule) 1 Capsules By Mouth Every day Unchanged levothyroxine (levothyroxine 125 mcg (0.125 mg) Tab) 1 Tablets By Mouth Every day Unchanged liothyronine (liothyronine 5 mcg Tab) 1 Tablets By Mouth Every day Unchanged magnesium gluconate (magnesium gluconate 500 mg oral tablet) By Mouth 2 times a day Unchanged melatonin Once a day (at bedtime) Unchanged metformin (metformin 500 mg ER Tab) 1 Tablets By Mouth 3 times a day Unchanged methylcobalamin (Methyl B-12) See instructions 5 mg Chewed Unchanged Misc Prescription (BACLOFEN 10 MG TABLET) 0 Unchanged multivitamin with iron (Iron 100 Plus) 1 Tablets By Mouth Every day Unchanged omega-3 polyunsaturated fatty acids (Fish Oil) 1,200 Milligram By Mouth Every day Unchanged omeprazole (omeprazole 20 mg Cap-DR) See instructions TAKE 1 CAPSULE DAILY Unchanged ondansetron (ondansetron 8 mg Tab) 1 Tablets By Mouth Every 8 hours TAKE 1 TABLET BY MOUTH EVERY 8 HOURS NEEDED FOR NAUSEA Unchanged tirzepatide (Mounjaro 2.5 mg/ 0.5 mL subcutaneous solution) 2.5 Milligram Subcutaneous Every week INJECT 2.5MG SUBCUTANEOUSLY EVERY WEEK Unchanged ubiquinone (CoQ10) By Mouth Every day Unchanged zinc sulfate (Zinc) By Mouth Every day Allergies Bactrim DS (Rash) Percocet (Hallucinations) Problems Ongoing - Any problem that you are currently receiving treatment for. Asymptomatic microscopic hematuria BMI 35.0-35.9,adult Dysuria GERD (gastroesophageal reflux disease) HTN (hypertension) Hyperlipidemia Hypothyroidism Incomplete bladder emptying Kidney stone Labial abscess Obesity (BMI 35.0-39.9 without comorbidity) JOSE RAMON (obstructive sleep apnea) Pre-op exam Skin texture changes Type II diabetes mellitus Urge incontinence Urinary frequency UTI (urinary tract infection) Patient Survey You may receive a survey via text or e-mail asking about your office visit. Please share your experience with us by completing your survey. We appreciate your feedback and thank you for choosing us for your care. [facility] Family Medicine Office/Clini c Noteon 03-15-2024 Family Medicine Office/Clinic Note Family Medicine Office/Clinic Note Chief Complaint Lump on outside vagina HPI Staff Pt presents today for acute sick visit. Onset: Location: Bump on external Rt side vagina. Duration: Characteristics:_ Aggravated by: Walking. Touching Relieved by: Timing:_ Associated Symptoms:_ History of Present Illness pt presents today with c/o bump on vagina Review of Systems PHQ Score Initial Depression Screen Score: 0 SCORE Physical Exam Vitals & Measurements T: 36.9 ???C(Tympanic) HR: 81(Peripheral) RR: 18 BP: 140/82 SpO2: 98% HT: 62 in HT: 158 cm WT: 87.9 kg WT: 193.38 lb BMI: 35.21 General: alert, no acute distress ENMT: oral mucosa moist, no pharyngeal erythema or exudate Cardiovascular: regular rate and rhythm, normal peripheral perfusion Respiratory: Lungs CTA, respirations non labored Extremities: no deformity, no trauma Neurological: oriented x 4, LOC appropriate for age, CN II-XII intact, motor strength equal & normal bilaterally, speech normal small grape sized abscess right labia Assessment/Plan 1. Labial abscess (N76.4: Abscess of vulva) pt noticed on Thursday when showering. small grape sized abscess noted on exam. area was cleansed and 1ml of 1% lidocaine was instilled. small incision was made with #10 blade at base of abscess. moderate amount of white pus weaped from incision. pressure was applied. area was cleansed and pad was given. will send in antibiotics for 10 days. if area does not heal or fills back up will return to office. Ordered: cephalexin, 500 mg = 1 cap(s), Oral, q12hr, # 20 cap(s), Refills(s) 0, [id number], cm, 03/15/24 15:36:00 EDT, Height/Length Dosing, 87.9, kg, 03/15/24 15:36:00 EDT, Weight Dosing 2. Former smoker (Z87.891: Personal history of nicotine dependence) continue not smoking Ordered: cephalexin, 500 mg = 1 cap(s), Oral, q12hr, # 20 cap(s), Refills(s) 0, [id number], 158, cm, 03/15/24 15:36:00 EDT, Height/Length Dosing, 87.9, kg, 03/15/24 15:36:00 EDT, Weight Dosing 3. BMI 35.0-35.9,adult (Z68.35: Body mass index [BMI] 35.0-35.9, adult) BMI education Ordered: cephalexin, 500 mg = 1 cap(s), Oral, q12hr, # 20 cap(s), Refills(s) 0, [id number], 158, cm, 03/15/24 15:36:00 EDT, Height/Length Dosing, 87.9, kg, 03/15/24 15:36:00 EDT, Weight Dosing 4. Obesity (BMI 35.0-39.9 without comorbidity) (E66.9: Obesity, unspecified) see above Ordered: cephalexin, 500 mg = 1 cap(s), Oral, q12hr, # 20 cap(s), Refills(s) 0, [id number], 158, cm, 03/15/24 15:36:00 EDT, Height/Length Dosing, 87.9, kg, 03/15/24 15:36:00 EDT, Weight Dosing Follow-up No qualifying data available Problem List/Past Medical History Ongoing Asymptomatic microscopic hematuria BMI 35.0-35.9,adult Dysuria GERD (gastroesophageal reflux disease) HTN (hypertension) Hyperlipidemia Hypothyroidism Incomplete bladder emptying Kidney stone Labial abscess Obesity (BMI 35.0-39.9 without comorbidity) JOSE RAMON (obstructive sleep apnea) Pre-op exam Skin texture changes Type II diabetes mellitus Urge incontinence Urinary frequency UTI (urinary tract infection) Historical No qualifying data Procedure/Surgical History Appendectomy, Arthroscopy of knee, Arthroscopy, knee, surgical; with meniscus repair (medial OR lateral), Cervical polypectomy, Colonoscopy, Cyst, Cystoscopy, Hysterectomy, Thyroidectomy. Medications acetaminophen 650 mg oral tablet, extended release, Oral, q8hr aspirin 81 mg Oral EC Tab, Oral, Daily atorvastatin 20 mg Tab, 20 mg= 1 tab(s), Oral, Daily, 3 refills BACLOFEN 10 MG TABLET, 0 cephalexin 500 mg Cap, 500 mg= 1 cap(s), Oral, q12hr CoQ10, Oral, Daily cranberry Ferrex-150 oral capsule, 150 mg= 1 cap(s), Oral, Daily Fish Oil, 1200 mg, Oral, Daily Humira 40 mg/0.8 mL subcutaneous kit, 40 mg= 0.8 mL, SubCutaneous, q2wk hydrochlorothiazide-lo sartan 25 mg-100 mg Tab, See Instructions Iron 100 Plus, 1 tab(s), Oral, Daily levothyroxine 125 mcg (0.125 mg) Tab, 125 mcg= 1 tab(s), Oral, Daily, 1 refills liothyronine 5 mcg Tab, 5 mcg= 1 tab(s), Oral, Daily, 4 refills magnesium gluconate 500 mg oral tablet, Oral, BID melatonin, Once a day (at bedtime) metformin 500 mg ER Tab, 500 mg= 1 tab(s), Oral, TID Methyl B-12, See Instructions Kaylee 2.5 mg/0.5 mL subcutaneous solution, 2.5 mg, SubCutaneous, qWeek omeprazole 20 mg Cap-DR, See Instructions ondansetron 8 mg Tab, 8 mg= 1 tab(s), Oral, q8hr Vitamin C, Daily Vitamin D3, 50 mcg, Oral, Thursday Zinc, Oral, Daily Allergies Bactrim DS (Rash) Percocet (Hallucinations) Social History Alcohol Never., 03/15/2024 Substance Abuse Never., 03/15/2024 Tobacco Former smoker, quit more than 30 days ago, quit 22 years ago Tobacco Use:. Never Smokeless Tobacco Use:., 03/15/2024 Family History Acute myocardial infarction: Brother. Breast cancer: Mother. Diabetes mellitus type 1: Mother. Heart disease: (more content not included)... Normal [facility] Comment on above: Result Comment: Elec tronically Signed By: Bambi Reynolds\.br\Date and Time Signed: 03/15/24 16:09 EDT Urology Office/Clinic Noteon 02-18-2024 Urology Office/Clinic Note Urology Office/Clinic Note Chief Complaint 6 month f/u for kidney stone HPI Staff PRW pt here for 6 month f/u w/ KUB and TIM. Previous dx: ARCADIO, UTI, kidney stone, AMH. *No urologic meds Bladder scan 09/14/23 - 105 mL, pt voided 30min prior and was unable to void when she came in for scan. TIM/KUB done 02/02/24 [facility]. PVR today is 162ml. Dysuria: denies Incomplete bladder emptying: denies states she does double voids Hematuria: denies Frequency: denies Urgency: yes but states that she drinks 80 oz of water a day Nocturia: 1-2x Stream: good steady most of the time Leaking: yes sometimes if she waits too long Post void dripping: denies Wearing pads/ Depends: pads and changes a couple times a day Urge incontinence: yes once in a while Stress incontinence: denies Incontinence without Sensory Awareness: denies Abdominal pain: denies Flank pain: denies Sexual complaints: denies Review of Systems PHQ Score Initial Depression Screen Score: 0 SCORE no fever, chills, malaise, myalgia. no rash/lesions. no chest pain, palpitations, or SOB. no abdominal pain, nausea, vomiting. no unilateral calf swelling, redness, pain Physical Exam Vitals & Measurements T: 37 ?C(Temporal Artery) HR: 68(Peripheral) RR: 16 BP: 135/85 HT: 62 in HT: 158 cm WT: 91.7 kg WT: 201.74 lb BMI: 36.73 General: nontoxic, NAD Mouth: moist mucosa Lungs: normal respiratory effort Cardio: regular rate, good distal perfusion Abdomen: nondistended, no suprapubic distention or tenderness, no CVA tenderness Neurologic: Grossly normal Skin: No rashes or suspicious lesions Assessment/Plan Hx of bladder prolapse. S/p bladder hysterectomy and sling done 01/[address] Beverly. S/p Cysto 07/29/22 - normal, no need for UD UA today 1+leuk, trace int hgb. Pt denies UTI sx. No indication to send for cx. 1. Kidney stone (N20.0: Calculus of kidney) KUB 07/22/22 - Lt nephrolithiasis CT 08/19/22 - 2 nonobstructing 3 mm stones in the Lt kidney TODAY: no recent flank pain, gross hematuria, stone passage. TIM/KUB done 02/02/24 [facility] - R side clear, L side w nonobstructing stones up to 6mm on TIM but not visible on KUB -repeat KUB/TIM in 1 yr Ordered: [id number] Measure Post Void residual urine and/or bladder capacity by US- non-imaging Urnls Dip Stick Auto w/o Microscopy POC 03257 2. Incomplete bladder emptying (R33.9: Retention of urine, unspecified) PVR (cc): 02/13/23 - 120 (voided 45 min prior) 08/17/23 - 326 (did not perform double void maneuver) 09/14/23 - 105 mL (pt voided 30min prior) TODAY: 162ml No recent UTIs. Ordered: [id number] Measure Post Void residual urine and/or bladder capacity by US- non-imaging 3. Urge incontinence (N39.41: Urge incontinence) BBSQ 21 poor control Advised that oral meds have risk of side effects and could worsen her retention. For the same reason, may not be a good candidate for Botox. Best option might be SNM, which could also help her fecal incontinence. Pt does not feel sx are bothersome enough to warrant this at this time. Will continue to monitor. Follow-up With When Contact Information EDWINA MOSLEY, TEODORO Easley Within 1 year [address] [place] [address]- Additional Instructions: KUB & TIM prior Patient Education Kidney Stones, [id number] Problem List/Past Medical History Ongoing Asymptomatic microscopic hematuria Dysuria GERD (gastroesophageal reflux disease) HTN (hypertension) Hyperlipidemia Hypothyroidism Incomplete bladder emptying Kidney stone JOSE RAMON (obstructive sleep apnea) Pre-op exam Skin texture changes Type II diabetes mellitus Urge incontinence Urinary frequency UTI (urinary tract infection) Historical No qualifying data Procedure/Surgical History Appendectomy, Arthroscopy of knee, Arthroscopy, knee, surgical; with meniscus repair (medial OR lateral), Cervical polypectomy, Colonoscopy, Cyst, Cystoscopy, Hysterectomy, Thyroidectomy. Medications acetaminophen 650 mg oral tablet, extended release, Oral, q8hr aspirin 81 mg Oral EC Tab, Oral, Daily atorvastatin 20 mg Tab, 20 mg= 1 tab(s), Oral, Daily, 3 refills BACLOFEN 10 MG TABLET, 0 CoQ10, Oral, Daily cranberry Ferrex-150 oral capsule, 150 mg= 1 cap(s), Oral, Daily Fish Oil, 1200 mg, Oral, Daily Humira 40 mg/0.8 mL subcutaneous kit, 40 mg= 0.8 mL, SubCutaneous, q2wk hydrochlorothiazide-lo sartan 25 mg-100 mg Tab, See Instructions Iron 100 Plus, 1 tab(s), Oral, Daily levothyroxine 125 mcg (0.125 mg) Tab, 125 mcg= 1 tab(s), Oral, Daily, 1 refills liothyronine 5 mcg Tab, 5 mcg= 1 tab(s), Oral, Daily, 4 refills magnesium gluconate 500 mg oral tablet, Oral, BID melatonin, Once a day (at bedtime) metformin 500 mg ER Tab, 500 mg= 1 tab(s), Oral, TID, 1 refills Methyl B-12, See Instructions Mounjaro 2.5 mg/0.5 mL subcutaneous solution, 2.5 mg, SubCutaneous, qWeek omeprazole 20 mg Cap-DR, See Instructions ondansetron 8 mg Tab, 8 mg= 1 tab(s), (more content not included)... Normal [facility] Comment on above: Result Comment: Elec tronically Signed By: MICAH LOVELL PA-C\Date and Time Signed: 02/18/24 13:25 EDT Reminderson 02-11-2024 Reminders Reminders From: Nusrat Vernon To: [facility] - Recalls Bland; Sent: 08/17/2023 12:43:51 EDT Show up: 01/17/2024 12:35:00 EDT Subject: KUB and TIM Reminder Message Pt needs KUB and TIM prior to appt in 6 months due to kidney stones and incomplete emptying. Pt is scheduled for TIM 02/02/24 @11am. Also has an order for KUB. results in chart for review [facility] Ambulatory Visit Summaryon 0 02-09-2024 Ambulatory Visit Summary Ambulatory Visit Summary GIA RUIZ :1950 Visit Date:02/09/2024 Ambulatory Visit Instructions Your Diagnosis Skin texture changes Former smoker BMI 34.0-34.9,adult Class 1 obesity due to excess calories in adult Your Care Team Attending Physician - Bambi Reynolds Primary Care Physician - Bambi Reynolds This Is Your Medications List Misc Prescription (BACLOFEN 10 MG TABLET) acetaminophen (acetaminophen 650 mg oral tablet, extended release) adalimumab (Humira 40 mg/0.8 mL subcutaneous kit) ascorbic acid (Vitamin C) aspirin (aspirin 81 mg Oral EC Tab) atorvastatin (atorvastatin 20 mg Tab) cholecalciferol (Vitamin D3) cranberry hydrochlorothiazide-lo sartan (hydrochlorothiazide-l osartan 25 mg-100 mg Tab) iron polysaccharide (Ferrex-150 oral capsule) levothyroxine (levothyroxine 125 mcg (0.125 mg) Tab) liothyronine (liothyronine 5 mcg Tab) magnesium gluconate (magnesium gluconate 500 mg oral tablet) melatonin metformin (metformin 500 mg ER Tab) methylcobalamin (Methyl B-12) multivitamin with iron (Iron 100 Plus) omega-3 polyunsaturated fatty acids (Fish Oil) omeprazole (omeprazole 20 mg Cap-DR) ondansetron (ondansetron 8 mg Tab) tirzepatide (Mounjaro 2.5 mg/0.5 mL subcutaneous solution) ubiquinone (CoQ10) zinc sulfate (Zinc) Procedures Performed Appendectomy, Arthroscopy of knee, Arthroscopy, knee, surgical; with meniscus repair (medial OR lateral), Cervical polypectomy, Colonoscopy, Cyst, Cystoscopy, Hysterectomy, Thyroidectomy. Discharge Vitals Temperature (Temporal Artery) 36.8 ?C Heart Rate (Peripheral) 80 Respiratory Rate 18 Blood Pressure 124/84 Height 158.0 cm Height 62 in Weight 86.15 kg Weight 189.53 lb BMI 34.51 What to do next Scheduled Follow-Up Appointments Thursday 10:45 AM EDT With: EDWINA MOSLEY, Bertha Vu Where: [facility] [address] [place] [address]23 1:00 PM EST With: Where: [facility] [address] [address]- Someone Will Contact You Regarding These Appointments [facility] [place], Patient choice/referral by family/friend, Dermatology, Dr. Barakat dermatology, 02/09/24 14:26:00 EDT, Skin texture changes Former smoker BMI 34.0-34.9,adult Class 1 obesity due to excess calories in adult Medications What How Much When Instructions Unchanged acetaminophen (acetaminophen 650 mg oral tablet, extended release) By Mouth Every 8 hours Unchanged adalimumab (Humira 40 mg/ 0.8 mL subcutaneous kit) 0.8 Milliliter Subcutaneous Every other week Unchanged ascorbic acid (Vitamin C) Every day Unchanged aspirin (aspirin 81 mg Oral EC Tab) By Mouth Every day Unchanged atorvastatin (atorvastatin 20 mg Tab) 1 Tablets By Mouth Every day Duration: 90 Days Unchanged cholecalciferol (Vitamin D3) 50 Microgram By Mouth Thursday Unchanged cranberry Unchanged hydrochlorothiazide-lo sartan (hydrochlorothiazide-l osartan 25 mg-100 mg Tab) See instructions TAKE 1 TABLET DAILY Unchanged iron polysaccharide (Ferrex-150 oral capsule) 1 Capsules By Mouth Every day Unchanged levothyroxine (levothyroxine 125 mcg (0.125 mg) Tab) 1 Tablets By Mouth Every day Unchanged liothyronine (liothyronine 5 mcg Tab) 1 Tablets By Mouth Every day Unchanged magnesium gluconate (magnesium gluconate 500 mg oral tablet) By Mouth 2 times a day Unchanged melatonin Once a day (at bedtime) Unchanged metformin (metformin 500 mg ER Tab) 1 Tablets By Mouth 3 times a day Unchanged methylcobalamin (Methyl B-12) See instructions 5 mg Chewed Unchanged Misc Prescription (BACLOFEN 10 MG TABLET) 0 Unchanged multivitamin with iron (Iron 100 Plus) 1 Tablets By Mouth Every day Unchanged omega-3 polyunsaturated fatty acids (Fish Oil) 1,200 Milligram By Mouth Every day Unchanged omeprazole (omeprazole 20 mg Cap-DR) 1 Capsules By Mouth Every day Unchanged ondansetron (ondansetron 8 mg Tab) 1 Tablets By Mouth Every 8 hours TAKE 1 TABLET BY MOUTH EVERY 8 HOURS NEEDED FOR NAUSEA Unchanged tirzepatide (Mounjaro 2.5 mg/ 0.5 mL subcutaneous solution) 2.5 Milligram Subcutaneous Every week INJECT 2.5MG SUBCUTANEOUSLY EVERY WEEK Unchanged ubiquinone (CoQ10) By Mouth Every day Unchanged zinc sulfate (Zinc) By Mouth Every day Allergies Bactrim DS (Rash) Percocet (Hallucinations) Problems Ongoing - Any problem that you are currently receiving treatment for. Asymptomatic microscopic hematuria Dysuria GERD (gastroesophageal reflux disease) HTN (hypertension) Hyperlipidemia Hypothyroidism Incomplete bladder emptying Kidney stone JOSE RAMON (obstructive sleep apnea) Pre-op exam Skin texture changes Type II diabetes mellitus Urinary frequency UTI (urinary tract infection) Patient Survey You may receive a survey (more content not included)... Normal [facility] Family Medicine Office/Clini c Noteon 02-09-2024 Family Medicine Office/Clinic Note Family Medicine Office/Clinic Note HPI Staff Gia is a 73 year old female presenting with bumps on forehead Onset: Had for months Thought they were acne Tried different acne OTC nothing has worked Does not itch, but is tender if she messes with them History of Present Illness pt presents today c/o skin changes on face Review of Systems PHQ Score Initial Depression Screen Score: 0 SCORE Physical Exam Vitals & Measurements T: 36.8 ?C(Temporal Artery) HR: 80(Peripheral) RR: 18 BP: 124/84 SpO2: 98% HT: 62 in HT: 158.0 cm WT: 86.15 kg WT: 189.53 lb BMI: 34.51 General: alert, no acute distress ENMT: oral mucosa moist, no pharyngeal erythema or exudate Cardiovascular: regular rate and rhythm, normal peripheral perfusion Respiratory: Lungs CTA, respirations non labored Extremities: no deformity, no trauma Neurological: oriented x 4, LOC appropriate for age, CN II-XII intact, motor strength equal & normal bilaterally, speech normal dry, brown, flaky lesion on lower, mid forehead right between her eyes size of pencil eraser Assessment/Plan 1. Skin texture changes (R23.4: Changes in skin texture) pt has an area mid forehead between eye that has been there about 4-5 months. area has changed in shape, texture and color. will send referral to [facility]. her goes to this office as well. RTC as needed Ordered: [facility] [place] 2. Former smoker (Z87.891: Personal history of nicotine dependence) continue not smoking Ordered: [facility] [place] Ref[place] 3. BMI 34.0-34.9,adult (Z68.34: Body mass index [BMI] 34.0-34.9, adult) BMI education given Ordered: [facility] [place] Amb[place] Referral 4. Class 1 obesity due to excess calories in adult (E66.09: Other obesity due to excess calories) see above Ordered: [facility] [place] Referral Follow-up No qualifying data available Problem List/Past Medical History Ongoing Asymptomatic microscopic hematuria Dysuria GERD (gastroesophageal reflux disease) HTN (hypertension) Hyperlipidemia Hypothyroidism Incomplete bladder emptying Kidney stone JOSE RAMON (obstructive sleep apnea) Pre-op exam Skin texture changes Type II diabetes mellitus Urinary frequency UTI (urinary tract infection) Historical No qualifying data Procedure/Surgical History Appendectomy, Arthroscopy of knee, Arthroscopy, knee, surgical; with meniscus repair (medial OR lateral), Cervical polypectomy, Colonoscopy, Cyst, Cystoscopy, Hysterectomy, Thyroidectomy. Medications acetaminophen 650 mg oral tablet, extended release, Oral, q8hr aspirin 81 mg Oral EC Tab, Oral, Daily atorvastatin 20 mg Tab, 20 mg= 1 tab(s), Oral, Daily, 3 refills BACLOFEN 10 MG TABLET, 0 CoQ10, Oral, Daily cranberry Ferrex-150 oral capsule, 150 mg= 1 cap(s), Oral, Daily Fish Oil, 1200 mg, Oral, Daily Humira 40 mg/0.8 mL subcutaneous kit, 40 mg= 0.8 mL, SubCutaneous, q2wk hydrochlorothiazide-lo sartan 25 mg-100 mg Tab, See Instructions Iron 100 Plus, 1 tab(s), Oral, Daily levothyroxine 125 mcg (0.125 mg) Tab, 125 mcg= 1 tab(s), Oral, Daily, 1 refills liothyronine 5 mcg Tab, 5 mcg= 1 tab(s), Oral, Daily, 4 refills magnesium gluconate 500 mg oral tablet, Oral, BID melatonin, Once a day (at bedtime) metformin 500 mg ER Tab, 500 mg= 1 tab(s), Oral, TID, 1 refills Methyl B-12, See Instructions Mounjaro 2.5 mg/0.5 mL subcutaneous solution, 2.5 mg, SubCutaneous, qWeek omeprazole 20 mg Cap-DR, 20 mg= 1 cap(s), Oral, Daily, 1 refills ondansetron 8 mg Tab, 8 mg= 1 tab(s), Oral, q8hr Vitamin C, Daily Vitamin D3, 50 mcg, Oral, Thursday Zinc, Oral, Daily Allergies Bactrim DS (Rash) Percocet (Hallucinations) Social History Alcohol 1-2 times per year, Household alcohol concerns: No., 05/13/2023 Tobacco Former smoker, quit more than 30 days ago, quit 22 years ago Tobacco Use:. Never Smokeless Tobacco Use:. Cigarettes, Household tobacco concerns: No. Yes, 02/09/2024 Family History Acute myocardial infarction: Brother. Breast cancer: Mother. Diabetes mellitus type 1: Mother. Heart disease: Brother. High cholesterol: Mother. Hypertension: Mother and Father. Lung cancer: Mother. Primary malignant neoplasm of prostate: Brother. Psychiatric behavioural disability: Mother. Stroke: Mother and Brother. Immunizations Vaccine Date Status Comments influenza virus vaccine, inactivated 04/21/2022 Recorded SARS-CoV-2 (COVID-19) [id number] 04/21/2022 Recorded influenza virus vaccine, inactivated 03/15/2021 Recorded SARS-CoV-2 (COVID-19) mRNA BNT-162b2 vax 03/15/2021 Recorded 2022-09-17: [id number] SARS-CoV-2 (COVID-19) mRNA BNT-162b2 vax 08/08/2020 Given SARS-CoV-2 (COVID-19) mRNA BNT-162b2 vax 07/11/2020 Given zoster vaccine, inactivated 07/01/2019 Recorded zoster vaccine, inactivated 04/30/2019 Recorded influenza virus vaccine, inactivated 04/30/2019 Recorded Normal [facility] Comment on above: Result Comment: Elec tronically Signed By: Bambi Reynolds\.br\Date and Time Signed: 02/09/24 14:31 EDT C Urineon 01-23-2024 Bacteria identified Cx Nom (U) Microbiology PROCEDURE: Urine Culture [R1] SOURCE: U CleanCatch BODY SITE: COLLECTED DATE/TIME: 01/21/2024 10:56 EDT RECEIVED DATE/TIME: 01/21/2024 18:42 EDT START DATE/TIME: 01/21/2024 18:42 EDT FREE TEXT SOURCE: Bambi Reynolds Jodi L FINAL REPORTS Final Report [] Verified Date/Time: 01/23/2024 09:41 EDT >100,000 cfu/ml Citrobacter freundii SUSCEPTIBILITY RESULTS __ LEGEND: S=Susceptible, N/R=Not Reported, Blank=Data not available, or drug not advisable or tested, I=Intermediate, ESBL=Extended spectrum beta-lactamase, R=Resistant, TFG=Thymidine-dependen t strain, JOSE JUAN=Beta-lactamase positive, WILLIAM=mcg/m;(mg/L), S*=Predicted susceptible interp, R*=Predicted resistant interp Citfreu Antibiotic WILLIAM Dilutn WILLIAM Interp Ampicillin >16 R Ampicillin/ <=8/4 R* Sulbactam Aztreonam <=4 S Cefazolin >16 R Cefepime <=2 S Ceftazidime <=1 S Ceftazidime/ <=8 S Avibactam Ceftriaxone <=1 S Cefuroxime <=4 R* Ciprofloxacin <=0.25 S Ertapenem <=0.5 S Gentamicin <=2 S Levofloxacin <=0.5 S Meropenem <=1 S Nitrofurantoin <=32 S Piperacillin/ <=8 S Tazobactam Tetracycline <=4 S Tobramycin <=2 S Trimethoprim/ <=2/38 S Sulfa Performing Locations R1: This test was performed at: [facility], [address] [place] [address], [facility] , , [facility] Comment on above: Performed By: #### [id number] #### [facility] [address] [place] [address] Ambulatory Visit Summaryon 0 01-21-2024 Ambulatory Visit Summary Ambulatory Visit Summary ANNETTE, GIA Cruz :1950 Visit Date:01/21/2024 Ambulatory Visit Instructions Your Diagnosis Dysuria Urinary frequency Former smoker BMI 34.0-34.9,adult Class 1 obesity due to excess calories in adult Your Care Team Attending Physician - Bambi Reynolds Primary Care Physician - Bambi Reynolds This Is Your Medications List Misc Prescription (BACLOFEN 10 MG TABLET) acetaminophen (acetaminophen 650 mg oral tablet, extended release) adalimumab (Humira 40 mg/0.8 mL subcutaneous kit) ascorbic acid (Vitamin C) aspirin (aspirin 81 mg Oral EC Tab) atorvastatin (atorvastatin 20 mg Tab) biotin budesonide cholecalciferol (Vitamin D3) cranberry hydrochlorothiazide-lo sartan (hydrochlorothiazide-l osartan 25 mg-100 mg Tab) iron polysaccharide (Ferrex-150 oral capsule) levocarnitine (L-Carnitine) levothyroxine (levothyroxine 125 mcg (0.125 mg) Tab) liothyronine (liothyronine 5 mcg Tab) magnesium gluconate (magnesium gluconate 500 mg oral tablet) melatonin metformin (metformin 500 mg ER Tab) methylcobalamin (Methyl B-12) multivitamin with iron (Iron 100 Plus) omega-3 polyunsaturated fatty acids (Fish Oil) omeprazole (omeprazole 20 mg Cap-DR) ondansetron (ondansetron 8 mg Tab) tirzepatide (Mounjaro 2.5 mg/0.5 mL subcutaneous solution) ubiquinone (CoQ10) zinc sulfate (Zinc) Procedures Performed Appendectomy, Arthroscopy of knee, Arthroscopy, knee, surgical; with meniscus repair (medial OR lateral), Cervical polypectomy, Colonoscopy, Cyst, Cystoscopy, Hysterectomy, Thyroidectomy. Discharge Vitals Temperature (Oral) 36.4 ?C Heart Rate (Peripheral) 80 Respiratory Rate 18 Blood Pressure 142/88 Height 158.0 cm Height 62 in Weight 86.1 kg Weight 189.42 lb BMI 34.49 What to do next Scheduled Follow-Up Appointments Thursday 10:45 AM EDT With: EDWINA MOSLEY, Bertha Vu Where: [facility] [id number]- 2023 1:00 PM EST With: Where: [facility] [address] [address]- Medications What How Much When Instructions Unchanged acetaminophen (acetaminophen 650 mg oral tablet, extended release) By Mouth Every 8 hours Unchanged adalimumab (Humira 40 mg/ 0.8 mL subcutaneous kit) 0.8 Milliliter Subcutaneous Every other week Unchanged ascorbic acid (Vitamin C) Every day Unchanged aspirin (aspirin 81 mg Oral EC Tab) By Mouth Every day Unchanged atorvastatin (atorvastatin 20 mg Tab) 1 Tablets By Mouth Every day Duration: 90 Days Unchanged biotin By Mouth Every day Unchanged budesonide 32 Microgram Inhalation At bedtime Unchanged cholecalciferol (Vitamin D3) 50 Microgram By Mouth Thursday Unchanged cranberry Unchanged hydrochlorothiazide-lo sartan (hydrochlorothiazide-l osartan 25 mg-100 mg Tab) See instructions TAKE 1 TABLET DAILY Unchanged iron polysaccharide (Ferrex-150 oral capsule) 1 Capsules By Mouth Every day Unchanged levocarnitine (L-Carnitine) 2,000 Milligram By Mouth Every day Unchanged levothyroxine (levothyroxine 125 mcg (0.125 mg) Tab) 1 Tablets By Mouth Every day Unchanged liothyronine (liothyronine 5 mcg Tab) 1 Tablets By Mouth Every day Unchanged magnesium gluconate (magnesium gluconate 500 mg oral tablet) By Mouth 2 times a day Unchanged melatonin Once a day (at bedtime) Unchanged metformin (metformin 500 mg ER Tab) 1 Tablets By Mouth 3 times a day Unchanged methylcobalamin (Methyl B-12) See instructions 5 mg Chewed Unchanged Misc Prescription (BACLOFEN 10 MG TABLET) 0 Unchanged multivitamin with iron (Iron 100 Plus) 1 Tablets By Mouth Every day Unchanged omega-3 polyunsaturated fatty acids (Fish Oil) 1,200 Milligram By Mouth Every day Unchanged omeprazole (omeprazole 20 mg Cap-DR) 1 Capsules By Mouth Every day Unchanged ondansetron (ondansetron 8 mg Tab) 1 Tablets By Mouth Every 8 hours TAKE 1 TABLET BY MOUTH EVERY 8 HOURS NEEDED FOR NAUSEA Unchanged tirzepatide (Mounjaro 2.5 mg/ 0.5 mL subcutaneous solution) 2.5 Milligram Subcutaneous Every week INJECT 2.5MG SUBCUTANEOUSLY EVERY WEEK Unchanged ubiquinone (CoQ10) By Mouth Every day Unchanged zinc sulfate (Zinc) By Mouth Every day Allergies Bactrim DS (Rash) Percocet (Hallucinations) Problems Ongoing - Any problem that you are currently receiving treatment for. Asymptomatic microscopic hematuria Dysuria GERD (gastroesophageal reflux disease) HTN (hypertension) Hyperlipidemia Hypothyroidism Incomplete bladder emptying Kidney stone JOSE RAMON (obstructive sleep apnea) Pre-op exam Type II diabetes mellitus Urinary frequency UTI (urinary tract infection) Patient Survey You may receive a survey via text or e-mail asking about your office visit. Please share your experience with us by completing your survey. (more content not included)... Normal [facility] Family Medicine Office/Clini c Noteon 01-21-2024 Family Medicine Office/Clinic Note Family Medicine Office/Clinic Note HPI Staff Gia is a 73 year old female presenting with Dysuria: Onset: Yesterday Symptoms: frequency urinating every 2 hours and dysuria and pressure OTC used: Tylenol helped a little bit Last UTI: a year ago Hx of kidney stones: when she was 22 years ago She has 2 small kidney stones UA in office documented in chart History of Present Illness pt presents today with dysuria and frequency Review of Systems PHQ Score Initial Depression Screen Score: 0 SCORE Physical Exam Vitals & Measurements T: 36.4 ?C(Oral) HR: 80(Peripheral) RR: 18 BP: 142/88 SpO2: 96% HT: 62 in HT: 158.0 cm WT: 86.1 kg WT: 189.42 lb BMI: 34.49 General: alert, no acute distress ENMT: oral mucosa moist, no pharyngeal erythema or exudate Cardiovascular: regular rate and rhythm, normal peripheral perfusion Respiratory: Lungs CTA, respirations non labored Extremities: no deformity, no trauma Neurological: oriented x 4, LOC appropriate for age, CN II-XII intact, motor strength equal & normal bilaterally, speech normal Assessment/Plan 1. Dysuria (R30.0: Dysuria) pt c/o dysuria and frequency. u/a positive. will send for culture. cipro sent to pharmacy Ordered: Urine Culture Urnls Dip Stick Auto w/o Microscopy POC 24906 2. Urinary frequency (R35.0: Frequency of micturition) see above Ordered: Urine Culture Urnls Dip Stick Auto w/o Microscopy POC 10472 3. Former smoker (Z87.891: Personal history of nicotine dependence) continue not smoking Ordered: Urnls Dip Stick Auto w/o Microscopy POC 55280 4. BMI 34.0-34.9,adult (Z68.34: Body mass index [BMI] 34.0-34.9, adult) BMI education Ordered: Urnls Dip Stick Auto w/o Microscopy POC 73389 5. Class 1 obesity due to excess calories in adult (E66.09: Other obesity due to excess calories) see above Ordered: Urnls Dip Stick Auto w/o Microscopy POC 84370 Orders: ciprofloxacin, 500 mg = 1 tab(s), Oral, q12hr, X 7 day(s), # 14 tab(s), Refills(s) 0, Pharmacy: [facility], 158, cm, 01/21/24 10:49:00 EDT, Height/Length Dosing, 86.1, kg, 01/21/24 10:49:00 EDT, Weight Dosing ciprofloxacin, 500 mg = 1 tab(s), Oral, q12hr, X 7 day(s), # 14 tab(s), Refills(s) 0, Pharmacy: [facility]/pharmacy #[id number], 158, cm, 01/21/24 10:49:00 EDT, Height/Length Dosing, 86.1, kg, 01/21/24 10:49:00 EDT, Weight Dosing Follow-up No qualifying data available Problem List/Past Medical History Ongoing Asymptomatic microscopic hematuria Dysuria GERD (gastroesophageal reflux disease) HTN (hypertension) Hyperlipidemia Hypothyroidism Incomplete bladder emptying Kidney stone JOSE RAMON (obstructive sleep apnea) Pre-op exam Type II diabetes mellitus Urinary frequency UTI (urinary tract infection) Historical No qualifying data Procedure/Surgical History Appendectomy, Arthroscopy of knee, Arthroscopy, knee, surgical; with meniscus repair (medial OR lateral), Cervical polypectomy, Colonoscopy, Cyst, Cystoscopy, Hysterectomy, Thyroidectomy. Medications acetaminophen 650 mg oral tablet, extended release, Oral, q8hr aspirin 81 mg Oral EC Tab, Oral, Daily atorvastatin 20 mg Tab, 20 mg= 1 tab(s), Oral, Daily, 3 refills BACLOFEN 10 MG TABLET, 0 biotin, Oral, Daily budesonide, 32 mcg, Inhalation, Bedtime ciprofloxacin 500 mg Tab, 500 mg= 1 tab(s), Oral, q12hr CoQ10, Oral, Daily cranberry Ferrex-150 oral capsule, 150 mg= 1 cap(s), Oral, Daily Fish Oil, 1200 mg, Oral, Daily Humira 40 mg/0.8 mL subcutaneous kit, 40 mg= 0.8 mL, SubCutaneous, q2wk hydrochlorothiazide-lo sartan 25 mg-100 mg Tab, See Instructions Iron 100 Plus, 1 tab(s), Oral, Daily L-Carnitine, 2000 mg, Oral, Daily levothyroxine 125 mcg (0.125 mg) Tab, 125 mcg= 1 tab(s), Oral, Daily, 1 refills liothyronine 5 mcg Tab, 5 mcg= 1 tab(s), Oral, Daily, 4 refills magnesium gluconate 500 mg oral tablet, Oral, BID melatonin, Once a day (at bedtime) metformin 500 mg ER Tab, 500 mg= 1 tab(s), Oral, TID, 1 refills Methyl B-12, See Instructions Mounjaro 2.5 mg/0.5 mL subcutaneous solution, 2.5 mg, SubCutaneous, qWeek omeprazole 20 mg Cap-DR, 20 mg= 1 cap(s), Oral, Daily, 1 refills ondansetron 8 mg Tab, 8 mg= 1 tab(s), Oral, q8hr Vitamin C, Daily Vitamin D3, 50 mcg, Oral, Thursday Zinc, Oral, Daily Allergies Bactrim DS (Rash) Percocet (Hallucinations) Social History Alcohol 1-2 times per year, Household alcohol concerns: No., 05/13/2023 Tobacco Former smoker, quit more than 30 days ago, quit 20 years ago Tobacco Use:. Never Smokeless Tobacco Use:. Cigarettes, Household tobacco concerns: No. Yes, 01/21/2024 Family History Acute myocardial infarction: Brother. Breast cancer: Mother. Diabetes mellitus type 1: Mother. Heart disease: Brother. High cholesterol: Mother. Hypertension: Mother and Father. Lung cancer: Mother. Primary malignant neoplasm of prostate: Brother. Psychiatric behavioural disability: Mother. Stroke: Mother and Br (more content not included)... [facility] Comment on above: Result Comment: Elec tronically Signed By: Bambi Reynolds\.br\Date and Time Signed: 01/21/24 11:10 EDT Consultation Noteon 11-05-19 Consultation Note [id number] TIFF [facility] Ambulatory Visit Summaryon 0 10-05-2023 Ambulatory Visit Summary GIA RUIZ :1950 Visit Date:10/05/2023 Ambulatory Visit Instructions Your Diagnosis Pre-op exam BMI 39.0-39.9,adult Former smoker Your Care Team Attending Physician - Bambi Reynolds Primary Care Physician - Bambi Reynolds This Is Your Medications List Misc Prescription (BACLOFEN 10 MG TABLET) acetaminophen (acetaminophen 650 mg oral tablet, extended release) adalimumab (Humira 40 mg/0.8 mL subcutaneous kit) ascorbic acid (Vitamin C) aspirin (aspirin 81 mg Oral EC Tab) atorvastatin (atorvastatin 20 mg Tab) biotin budesonide cholecalciferol (Vitamin D3) cranberry hydrochlorothiazide-lo sartan (hydrochlorothiazide-l osartan 25 mg-100 mg Tab) iron polysaccharide (Ferrex-150 oral capsule) levocarnitine (L-Carnitine) levothyroxine (levothyroxine 125 mcg (0.125 mg) Tab) liothyronine (liothyronine 5 mcg Tab) magnesium gluconate (magnesium gluconate 500 mg oral tablet) melatonin metformin (metformin 500 mg ER Tab) methylcobalamin (Methyl B-12) multivitamin with iron (Iron 100 Plus) omega-3 polyunsaturated fatty acids (Fish Oil) omeprazole (omeprazole 20 mg Cap-DR) ondansetron (ondansetron 8 mg Tab) tirzepatide (Mounjaro 2.5 mg/0.5 mL subcutaneous solution) ubiquinone (CoQ10) zinc sulfate (Zinc) Procedures Performed Appendectomy, Arthroscopy of knee, Arthroscopy, knee, surgical; with meniscus repair (medial OR lateral), Cervical polypectomy, Colonoscopy, Cyst, Cystoscopy, Hysterectomy, Thyroidectomy. Discharge Vitals Heart Rate (Peripheral) 72 Respiratory Rate 20 Blood Pressure 140/80 Height 158.0 cm Height 62 in Weight 92.3 kg Weight 203.06 lb BMI 36.97 What to do next Scheduled Follow-Up Appointments Thursday 10:45 AM EDT With: EDWINA MOSLEY, Bertha Vu Where: [facility] [id number] \.br\ Medications\.br\ What How Much When Instructions\.br \ Unchanged acetaminophen (acetaminophen 650 mg oral tablet, extended release) By Mouth Every 8 hours\.br\ Unchanged adalimumab (Humira 40 mg/ 0.8 mL subcutaneous kit) 0.8 Milliliter Subcutaneous Every other week\.br\ Unchanged ascorbic acid (Vitamin C) Every day\.br\ Unchanged aspirin (aspirin 81 mg Oral EC Tab) By Mouth Every day\.br\ Unchanged atorvastatin (atorvastatin 20 mg Tab) 1 Tablets By Mouth Every day Duration: 90 Days\.br\ Unchanged biotin By Mouth Every day\.br\ Unchanged budesonide 32 Microgram Inhalation At bedtime\.br\ Unchanged cholecalciferol (Vitamin D3) 50 Microgram By Mouth Thursday\.br\ Unchanged cranberry\.br\ Unchanged hydrochlorothiaz pan-losartan (hydrochlorothia zide-losartan 25 mg-100 mg Tab) 1 Tablets By Mouth Every day\.br\ Unchanged iron polysaccharide (Ferrex-150 oral capsule) 1 Capsules By Mouth Every day\.br\ Unchanged levocarnitine (L-Carnitine) 2,000 Milligram By Mouth Every day\.br\ Unchanged levothyroxine (levothyroxine 125 mcg (0.125 mg) Tab) 1 Tablets By Mouth Every day\.br\ Unchanged liothyronine (liothyronine 5 mcg Tab) 1 Tablets By Mouth Every day\.br\ Unchanged magnesium gluconate (magnesium gluconate 500 mg oral tablet) By Mouth 2 times a day\.br\ Unchanged melatonin Once a day (at bedtime)\.br\ Unchanged metformin (metformin 500 mg ER Tab) 1 Tablets By Mouth 3 times a day\.br\ Unchanged methylcobalamin (Methyl B-12) See instructions 5 mg Chewed \.br\ Unchanged Misc Prescription (BACLOFEN 10 MG TABLET) 0\.br\ Unchanged multivitamin with iron (Iron 100 Plus) 1 Tablets By Mouth Every day\.br\ Unchanged omega-3 polyunsaturated fatty acids (Fish Oil) 1,200 Milligram By Mouth Every day\.br\ Unchanged omeprazole (omeprazole 20 mg Cap-DR) 1 Capsules By Mouth Every day\.br\ Unchanged ondansetron (ondansetron 8 mg Tab) 1 Tablets By Mouth Every 8 hours TAKE 1 TABLET BY MOUTH EVERY 8 HOURS NEEDED FOR NAUSEA \.br\ Unchanged tirzepatide (Mounjaro 2.5 mg/ 0.5 mL subcutaneous solution) 2.5 Milligram Subcutaneous Every week INJECT 2.5MG SUBCUTANEOUSLY EVERY WEEK \.br\ Unchanged ubiquinone (CoQ10) By Mouth Every day\.br\ Unchanged zinc sulfate (Zinc) By Mouth Every day\.br\ Allergies\.br\ Bactrim DS (Rash)\.br\ Percocet (Hallucinations) \.br\ Problems\.br\ Ongoing - Any problem that you are currently receiving treatment for.\.br\ Asymptomatic microscopic hematuria\.br\ GERD (gastroesophagea l reflux disease)\.br\ HTN (hypertension)\. br\ Hyperlipidemia\. br\ Hypothyroidism\. br\ Incomplete bladder emptying\.br\ Kidney stone\.br\ JOSE RAMON (obstructive sleep apnea)\.br\ Pre-op exam\.br\ Type II diabetes mellitus\.br\ UTI (urinary tract infection)\.br\ Patient Survey\.br\ You may receive a survey via text or e-mail asking about your office visit. Please share your experience with us by completing your survey. We appreciate your feedback and thank you for choosing us for your care.\.br\ \.br\ [facility] Auth for Release of Medical Recordson 10-05-2023 Auth for Release of Medical Records [id number] 0TIFF Normal [facility] Consultation Noteon 10-05-19 Consultation Note [id number] 0TIFF Normal [facility] Family Medicine Office/Clini c Noteon 10-05-2023 Family Medicine Office/Clinic Note HPI Staff Gia is a 73 year old female presenting for Surgical Clearance Pt having left knee surgery on 10/22/[address] Cárdenas Pt had pre surgical testing done last week at [facility], did blood work, urine, test, ekg sent records request for labs to [facility] History of Present Illness pt presents today for pre surgical clearance for knee surgery Review of Systems PHQ Score Initial Depression Screen Score: 0 SCORE Physical Exam Vitals & Measurements HR: 72(Peripheral) RR: 20 BP: 140/80 SpO2: 94% HT: 62 in HT: 158.0 cm WT: 92.3 kg WT: 203.06 lb BMI: 36.97 General: alert, no acute distress ENMT: oral mucosa moist, no pharyngeal erythema or exudate Cardiovascular: regular rate and rhythm, normal peripheral perfusion Respiratory: Lungs CTA, respirations non labored Extremities: no deformity, no trauma Neurological: oriented x 4, LOC appropriate for age, CN II-XII intact, motor strength equal & normal bilaterally, speech normal Assessment/Plan 1. Pre-op exam (Z01.818: Encounter for other preprocedural examination) pt presents today for pre-op exam pt is doing well. EKG, chest x ray and lab results all reviewed. will send surgical clearance letter to Dr. Cárdenas. all questions answered. RTC as needed 2. BMI 39.0-39.9,adult (Z68.39: Body mass index [BMI] 39.0-39.9, adult) BMI eduction complete. down 11 pounds 3. Former smoker (Z87.891: Personal history of nicotine dependence) continue not smoking Follow-up No qualifying data available Problem List/Past Medical History Ongoing Asymptomatic microscopic hematuria GERD (gastroesophageal reflux disease) HTN (hypertension) Hyperlipidemia Hypothyroidism Incomplete bladder emptying Kidney stone JOSE RAMON (obstructive sleep apnea) Pre-op exam Type II diabetes mellitus UTI (urinary tract infection) Historical No qualifying data Procedure/Surgical History Appendectomy, Arthroscopy of knee, Arthroscopy, knee, surgical; with meniscus repair (medial OR lateral), Cervical polypectomy, Colonoscopy, Cyst, Cystoscopy, Hysterectomy, Thyroidectomy. Medications acetaminophen 650 mg oral tablet, extended release, Oral, q8hr aspirin 81 mg Oral EC Tab, Oral, Daily atorvastatin 20 mg Tab, 20 mg= 1 tab(s), Oral, Daily, 3 refills BACLOFEN 10 MG TABLET, 0 biotin, Oral, Daily budesonide, 32 mcg, Inhalation, Bedtime CoQ10, Oral, Daily cranberry Ferrex-150 oral capsule, 150 mg= 1 cap(s), Oral, Daily Fish Oil, 1200 mg, Oral, Daily Humira 40 mg/0.8 mL subcutaneous kit, 40 mg= 0.8 mL, SubCutaneous, q2wk hydrochlorothiazide-lo sartan 25 mg-100 mg Tab, 1 tab(s), Oral, Daily Iron 100 Plus, 1 tab(s), Oral, Daily L-Carnitine, 2000 mg, Oral, Daily levothyroxine 125 mcg (0.125 mg) Tab, 125 mcg= 1 tab(s), Oral, Daily liothyronine 5 mcg Tab, 5 mcg= 1 tab(s), Oral, Daily magnesium gluconate 500 mg oral tablet, Oral, BID melatonin, Once a day (at bedtime) metformin 500 mg ER Tab, 500 mg= 1 tab(s), Oral, TID, 1 refills Methyl B-12, See Instructions Mounjaro 2.5 mg/0.5 mL subcutaneous solution, 2.5 mg, SubCutaneous, qWeek omeprazole 20 mg Cap-DR, 20 mg= 1 cap(s), Oral, Daily, 1 refills ondansetron 8 mg Tab, 8 mg= 1 tab(s), Oral, q8hr Vitamin C, Daily Vitamin D3, 50 mcg, Oral, Thursday Zinc, Oral, Daily Allergies Bactrim DS (Rash) Percocet (Hallucinations) Social History Alcohol 1-2 times per year, Household alcohol concerns: No., 05/13/2023 Tobacco Former smoker, quit more than 30 days ago, quit 20 years ago Tobacco Use:. Never Smokeless Tobacco Use:. Cigarettes, Household tobacco concerns: No. Yes, 10/05/2023 Family History Acute myocardial infarction: Brother. Breast cancer: Mother. Diabetes mellitus type 1: Mother. Heart disease: Brother. High cholesterol: Mother. Hypertension: Mother and Father. Lung cancer: Mother. Primary malignant neoplasm of prostate: Brother. Psychiatric behavioural disability: Mother. Stroke: Mother and Brother. Immunizations Vaccine Date Status Comments influenza virus vaccine, inactivated 04/21/2022 Recorded SARS-CoV-2 (COVID-19) [id number] 04/21/2022 Recorded influenza virus vaccine, inactivated 03/15/2021 Recorded SARS-CoV-2 (COVID-19) mRNA BNT-162b2 vax 03/15/2021 Recorded 2022-09-17: [id number] SARS-CoV-2 (COVID-19) mRNA BNT-162b2 vax 08/08/2020 Given SARS-CoV-2 (COVID-19) mRNA BNT-162b2 vax 07/11/2020 Given zoster vaccine, inactivated 07/01/2019 Recorded zoster vaccine, inactivated 04/30/2019 Recorded influenza virus vaccine, inactivated 04/30/2019 Recorded Normal [facility] Comment on above: Result Comment: Elec tronically Signed By: Bambi Reynolds\.br\Date and Time Signed: 10/05/23 11:37 EDT Lab Reportson 10-05-2023 Lab Reports [id number]#1.00 TIFF Normal [facility] Provider Letteron 10-05-2023 Provider Letter [address] [place] [id number] October 05, 2023 GIA RUIZ [address] [place] [address] : [address] Cárdenas, The above patient has been evaluated at your request for preoperative clearance. After assessment of available pertinent labs and diagnostic tests, I feel this patient is medically optimized for surgery. Final discretion of whether the patient is cleared for surgery remains up to the surgeon/anesthesiologi st. Thank you, CHUYITA Suresh Normal [facility] ECG 12-Leadon 10-02-2023 ECG 12-Lead [id number] TIFF Normal [facility] XR tibia/fibula BIon 024 XR tibia/fibula BI [facility] Main [place] [address] [place] [address] XRay Report Signed Patient: Gia Ruiz MR#: [id number] : 1950 Acct:[id number] Age/Sex: 73 / F ADM Date: 10/01/23 Loc: [facility] Room: Type: [facility] Attending Dr: Rosalinda Bernstein PA-C Copies to: Rosalinda Bernstein PA-C Ordering Provider: Rosalinda Bernstein PA-C Date of Service: 10/01/23 XR/XR femur BI: Z01.818 ([id number]) XR/XR tibia/fibula BI: Z01.818 Bilateral femur and tibia and fibula HISTORY: Presurgical assessment for left total knee arthroplasty. Adequate hip and SI joints. Intact femurs. No fracture. Unremarkable right knee arthroplasty. Moderate right knee degeneration. Intact tibia and fibula. No fracture. Adequate alignment. Mild bilateral knee degeneration. No soft tissue abnormality. XR/XR femur BI IMPRESSION: Moderate left knee degeneration. Uncomplicated right knee arthroplasty. Adequate alignment. Mild additional degeneration. Impression dictated by: Lloyd Schuler M.D.10/01/2023 5:05 PM Dictation Location: [place] [address] Transcribed By: [facility] 10/01/231704 Dictated By: Lloyd Schuler DO 10/01/231702 Signed By: 10/01/231704 Normal [facility] A1C with Estimated Average G [facility] 09-30-2023 Glucose [Mass/Vol] 120 mg/dL Normal [facility] Comment on above: Result Comment: PERF ORMED BY: [place] [address] PATHOLOGIST GATE TECHNICIAN LILIANA WAKEFIELD M.D. Performed By: #### U A, A1C WT eA #### [facility] [address] HbA1c (Bld) [Mass fraction] 5.8 % High 4.3-5.6 [facility] Comment on above: Result Comment: Incr eased risk for diabetes: 5.7 - 6.4 diabetes: >6.4 glycemic control for adults with diabetes: <7.0 Performed By: #### U A, A1C WT eA #### [address] Activated partial thrombopla stin time (aPTT) in platelet poor plasma by coagulation aOrdered By: Rosalinda Bernstein on 09-30-2023 aPTT Coag (PPP) [Time] 35.6 s 25.1-36.5 [facility] Comment on above: A hematocrit value g reater than 55% may lead to inaccurate results in coagulation testing. Patients having hematocrit values >55% require a special collection tube for coagulation studies. Please contact the laboratory at [phone] for redraw instructions. Alanine aminotransferase [En zymatic activity/volume] in Serum or PlasmaOrdered By: Rosalinda Bernstein on 09-30-2023 ALT [Catalytic activity/Vol] 17 U/L 7-52 [facility] Albumin [Mass/volume] in Ser um or Plasma by Bromocresol green (BCG) dye binding methoOrdered By: Rosalinda Bernstein on 09-30-2023 Albumin BCG dye [Mass/Vol] 4.2 g/dL 3.5-5.7 [facility] Alkaline phosphatase [Enzyma tic activity/volume] in Serum or PlasmaOrdered By: Rosalinda Bernstein on 09-30-2023 ALP [Catalytic activity/Vol] 46 U/L 34-104 [facility] Aspartate aminotransferase [ Enzymatic activity/volume] in Serum or PlasmaOrdered By: Rosalinda Bernstein on 09-30-2023 AST [Catalytic activity/Vol] 14 U/L 13-39 [facility] Basophils Auto (Bld) [#/Vol] Ordered By: Rosalinda Bernstein on 09-30-2023 Basophils (Bld) [#/Vol] 0.1 10*3/uL 0.0-0.2 [facility] Basophils/100 WBC Auto (Bld) Ordered By: Rosalinda Bernstein on 09-30-2023 Basophils/100 WBC (Bld) 0.8 % . [facility] Bilirubin Test strip Ql (U)O rdered By: Rosalinda Bernstein on 09-30-2023 Bilirubin Ql (U) Negative Negative [facility] Bilirubin.total [Mass/volume ] in Serum or PlasmaOrdered By: Rosalinda Bernstein on 09-30-2023 Bilirubin [Mass/Vol] 0.4 mg/dL 0.3-1.0 [facility] Calcium [Mass/volume] in Ser um or PlasmaOrdered By: Rosalinda Bernstein on 09-30-2023 Calcium [Mass/Vol] 9.3 mg/dL 8.6-10.3 [facility] Carbon dioxide, total [Moles /volume] in Serum or PlasmaOrdered By: Rosalinda Bernstein on 09-30-2023 CO2 [Moles/Vol] 28.2 mmol/L 21.0-31.0 [facility] Chloride [Moles/volume] in S soni or PlasmaOrdered By: Rosalinda Bernstein on 09-30-2023 Chloride [Moles/Vol] 95 mmol/L 98-107 [facility] Color Auto (U)Ordered By: Vasyl Bernstein on 09-30-2023 Color (U) Yellow Yellow [facility] Complete Blood Count Auto Di ffon 09-30-2023 Basophils (Bld) [#/Vol] 0.1 10*3/uL Normal 0.0-0.2 [facility] Comment on above: Result Comment: PERF ORMED BY: [facility] [address] [place] [address] PATHOLOGIST GATE TECHNICIAN LILIANA WAKEFIELD M.D. Performed By: #### C #### [facility] [address] Basophils/100 WBC (Bld) 0.8 % Normal . [facility] Comment on above: Performed By: #### C BC #### [address] Eosinophils (Bld) [#/Vol] 0.2 10*3/uL Normal 0.0-0.45 [facility] Comment on above: Performed By: #### C BC #### [address] Eosinophils/100 WBC (Bld) 3.1 % Normal . [facility] Comment on above: Performed By: #### C BC #### [address] Erythrocyte distribution width (RBC) [Ratio] 13.2 % Normal 11.9-15.3 [facility] Comment on above: Performed By: #### C BC #### [address] Hematocrit (Bld) [Volume fraction] 38.1 % Normal 34.0-46.4 [facility] Comment on above: Performed By: #### C BC #### [address] Hemoglobin (Bld) [Mass/Vol] 12.9 g/dL Normal 11.8-15.4 [facility] Comment on above: Performed By: #### C BC #### [address] Lymphocytes (Bld) [#/Vol] 3.6 10*3/uL Normal 1.00-4.8 [facility] Comment on above: Performed By: #### C BC #### [address] Lymphocytes/100 WBC (Bld) 49.4 % Normal . [facility] Comment on above: Performed By: #### C BC #### [address] MCH (RBC) [Entitic mass] 29.7 pg Normal 24.7-34.3 [facility] Comment on above: Performed By: #### C BC #### [address] MCV (RBC) [Entitic vol] 87.5 fL Normal 80-100 [facility] Comment on above: Performed By: #### C BC #### [address] Mean Corpuscular HGB Conc 33.9 g/dL Normal 32.0-35.0 [facility] Comment on above: Performed By: #### C BC #### [address] Monocytes (Bld) [#/Vol] 0.5 10*3/uL Normal 0.0-0.8 [facility] Comment on above: Performed By: #### C BC #### [address] Monocytes/100 WBC (Bld) 7.4 % Normal . [facility] Comment on above: Performed By: #### C BC #### [address] Neutrophils (Bld) [#/Vol] 2.9 10*3/uL Normal 1.8-7.7 [facility] Comment on above: Performed By: #### C BC #### [address] Neutrophils/100 WBC (Bld) 39.3 % Normal . [facility] Comment on above: Performed By: #### C BC #### [address] NRBC% 0.1 /100{WBC} Normal 0-0.5 [facility] Comment on above: Performed By: #### C BC #### [address] Platelet mean volume (Bld) [Entitic vol] 7.0 fL Normal 6.3-10.7 [facility] Comment on above: Performed By: #### C BC #### [address] Platelets (Bld) [#/Vol] 320 10*3/uL Normal 150-450 [facility] Comment on above: Performed By: #### C BC #### [address] RBC (Bld) [#/Vol] 4.35 10*6/uL Normal 3.60-5.00 [facility] Comment on above: Performed By: #### C BC #### [address] WBC (Bld) [#/Vol] 7.3 10*3/uL Normal 3.8-11.6 [facility] Comment on above: Performed By: #### C BC #### [address] Comprehensive Metabolic Pane [facility] 09-30-2023 Albumin [Mass/Vol] 4.2 g/dL Normal 3.5-5.7 [facility] Comment on above: Performed By: #### G LULS #### Point of Care testing , Albumin/Globulin [Mass ratio] 1.2 {ratio} Normal [facility] Comment on above: Performed By: #### G LULS #### Point of Care testing , ALP [Catalytic activity/Vol] 46 U/L Normal 34-104 [facility] Comment on above: Result Comment: PERF ORMED BY: [place] [address] PATHOLOGIST GATE TECHNICIAN LILIANA WAKEFIELD M.D. Performed By: #### G LULS #### Point of Care testing , ALT [Catalytic activity/Vol] 17 U/L Normal 7-52 [facility] Comment on above: Performed By: #### G LULS #### Point of Care testing , Anion gap [Moles/Vol] 12.0 mmol/L Normal 6.0-15.0 [facility] Comment on above: Performed By: #### G LULS #### Point of Care testing , AST [Catalytic activity/Vol] 14 U/L Normal 13-39 [facility] Comment on above: Performed By: #### G LULS #### Point of Care testing , Bilirubin [Mass/Vol] 0.4 mg/dL Normal 0.3-1.0 [facility] Comment on above: Performed By: #### G LULS #### Point of Care testing , Calcium [Mass/Vol] 9.3 mg/dL Normal 8.6-10.3 [facility] Comment on above: Performed By: #### G LULS #### Point of Care testing , Chloride [Moles/Vol] 95 mmol/L Low 98-107 [facility] Comment on above: Performed By: #### G LULS #### Point of Care testing , CO2 [Moles/Vol] 28.2 mmol/L Normal 21.0-31.0 [facility] Comment on above: Performed By: #### G LULS #### Point of Care testing , Creatinine [Mass/Vol] 0.70 mg/dL Normal 0.60-1.20 [facility] Comment on above: Performed By: #### G LULS #### Point of Care testing , GFR/1.73 sq M.predicted MDRD (S/P/Bld) [Vol rate/Area] mL/min/{1.73_m2} Normal [facility] Comment on above: Performed By: #### G LULS #### Point of Care testing , Globulin (S) [Mass/Vol] 3.5 g/dL Normal [facility] Comment on above: Performed By: #### G LULS #### Point of Care testing , Glucose [Mass/Vol] 80 mg/dL Normal 70-100 [facility] Comment on above: Result Comment: [place] Glucose Reference Range is dependent on time and content of last meal. Glucose of more than 200 mg/dL in a nonstressed, ambulatory subject supports the diagnosis of Diabetes Mellitus. ADA recommended reference range Performed By: #### G LULS #### Point of Care testing , Potassium [Moles/Vol] 4.2 mmol/L Normal 3.5-5.1 [facility] Comment on above: Performed By: #### G LULS #### Point of Care testing , Protein [Mass/Vol] 7.7 g/dL Normal 6.4-8.9 [facility] Comment on above: Performed By: #### G LULS #### Point of Care testing , Sodium [Moles/Vol] 131 mmol/L Low 136-145 [facility] Comment on above: Performed By: #### G LULS #### Point of Care testing , Urea nitrogen [Mass/Vol] 9 mg/dL Normal 7-25 [facility] Comment on above: Performed By: #### G LULS #### Point of Care testing , Creatinine [Mass/volume] in Serum or PlasmaOrdered By: Rosalinda Bernstein on 09-30-2023 Creatinine [Mass/Vol] 0.70 mg/dL 0.60-1.20 [facility] ECG 12 lead ECGon 09-30-2023 ECG 12 lead ECG [facility] [place] [address] Electrocardiograph Report Signed Patient: Gia Ruiz MR#: [id number] : 1950 Acct:[id number] Age/Sex: 73 / F ADM Date: 09/30/23 Loc: Room: Type: [facility] Attending Dr: Rosalinda Bernstein PA-C Ordering Provider: Rosalinda Bernstein PA-C Date of Service: 09/30/23 ECG/ECG 12 lead ECG: pst Copies to: Test Reason : Blood Pressure : / mmHG Vent. Rate : 070 BPM Atrial Rate : 070 BPM P-R Int : 194 ms QRS Dur : 092 ms QT Int : 426 ms P-R-T Axes : 070 048 066 degrees QTc Int : 460 ms Normal sinus rhythm Normal ECG When compared with ECG of 24-NOV-2022 09:26, No significant change was found Confirmed by BERTHA VELASQUEZ MD, FACC ([id number]) on 10/02/2023 7:50:15 AM Referred By: Electronically Signed By:BERTHA VELASQUEZ MD, FACC Transcribed By: [facility] Signed By Carl Velasquez MD 10/02/23 0750 Normal [facility] Eosinophils Auto (Bld) [#/Vo l]Ordered By: Rsoalinda Bernstein on 09-30-2023 Eosinophils (Bld) [#/Vol] 0.2 10*3/uL 0.0-0.45 [facility] Eosinophils/100 WBC Auto (Bl d)Ordered By: Rosalinda Bernstein on 09-30-2023 Eosinophils/100 WBC (Bld) 3.1 % . [facility] Erythrocyte distribution wid th Auto (RBC) [Ratio]Ordered By: Rosalinda Bernstein on 09-30-2023 Erythrocyte distribution width (RBC) [Ratio] 13.2 % 11.9-15.3 [facility] Globulin Calc (S) [Mass/Vol] Ordered By: Rosalinda Bernstein on 09-30-2023 Globulin (S) [Mass/Vol] 3.5 g/dL [facility] Glucose [Mass/volume] in Ser um or PlasmaOrdered By: Rosalinda Bernstein on 09-30-2023 Glucose [Mass/Vol] 80 mg/dL 70-100 [facility] Comment on above: ADA recommended refe rence rangeRandom Glucose Reference Range is dependent on time and content of last meal. Glucose of more than 200 mg/dL in a nonstressed, ambulatory subject supports the diagnosis of Diabetes Mellitus. Glucose mean value [Mass/vol ume] in Blood Estimated from glycated hemoglobinOrdered By: Rosalinda Bernstein on 09-30-2023 Average glucose Estimated from glycated hemoglobin (Bld) [Mass/Vol] 120 mg/dL [facility] Hematocrit Auto (Bld) [Volum e fraction]Ordered By: Rosalinda Bernstein on 09-30-2023 Hematocrit (Bld) [Volume fraction] 38.1 % 34.0-46.4 [facility] Hemoglobin A1c percentageOrd ered By: Rosalinda Bernstein on 09-30-2023 HbA1c (Bld) [Mass fraction] 5.8 % 4.3-5.6 [facility] Comment on above: Increased risk for d iabetes: 5.7 - 6.4diabetes: >6.4glycemic control for adults with diabetes: <7.0 Hemoglobin [Mass/volume] in BloodOrdered By: Rosalinda Bernstein on 09-30-2023 Hemoglobin (Bld) [Mass/Vol] 12.9 g/dL 11.8-15.4 [facility] INR in Platelet poor plasma by Coagulation assayOrdered By: Rosalinda Bernstein on 09-30-2023 INR Coag (PPP) [Relative time] 1.0 {INR} [facility] Comment on above: INR Therapeutic Rang e A) Pre- and Peroperative OAT started two weeks before surgery. NOT HIP SURGERY: 1.5 - 2.5 HIP SURGERY: 2 - 3B) Primary and secondary prevention of venous THROMBOSIS: 2 - 3C) Active venous thrombosis, pulmonary embolismand prevention of recurrent venous thrombosis: 2 - 3D) Prevention of arterial thromboembolismincluding patients with mechanical heart valves: 3 - 4.5 Ketones Auto test strip (U) [Mass/Vol]Ordered By: Rosalinda Bernstein on 09-30-2023 Ketones (U) [Mass/Vol] Negative Negative [facility] Leukocytes [#/volume] correc lisa for nucleated erythrocytes in Blood by Automated counOrdered By: Rosalinda Bernstein on 09-30-2023 WBC corrected for nucl RBC Auto (Bld) [#/Vol] 7.3 10*3/uL 3.8-11.6 [facility] Lymphocytes Auto (Bld) [#/Vo l]Ordered By: Rosalinda Bernstein on 09-30-2023 Lymphocytes (Bld) [#/Vol] 3.6 10*3/uL 1.00-4.8 [facility] Lymphocytes/100 WBC Auto (Bl d)Ordered By: Rosalinda Bernstein on 09-30-2023 Lymphocytes/100 WBC (Bld) 49.4 % . [facility] MCH Auto (RBC) [Entitic mass ]Ordered By: Rosalinda Bernstein on 09-30-2023 MCH (RBC) [Entitic mass] 29.7 pg 24.7-34.3 [facility] MCHC Auto (RBC) [Mass/Vol]Or dered By: Rosalinda Bernstein on 09-30-2023 MCHC (RBC) [Mass/Vol] 33.9 g/dL 32.0-35.0 [facility] MCV Auto (RBC) [Entitic vol] Ordered By: Rosalinda Bernstein on 09-30-2023 MCV (RBC) [Entitic vol] 87.5 fL 80-100 [facility] Monocytes Auto (Bld) [#/Vol] Ordered By: Rosalinda Bernstein on 09-30-2023 Monocytes (Bld) [#/Vol] 0.5 10*3/uL 0.0-0.8 [facility] Monocytes/100 WBC Auto (Bld) Ordered By: Rosalinda Bernstein on 09-30-2023 Monocytes/100 WBC (Bld) 7.4 % . [facility] Neutrophils Auto (Bld) [#/Vo l]Ordered By: Rosalinda Bernstein on 09-30-2023 Neutrophils (Bld) [#/Vol] 2.9 10*3/uL 1.8-7.7 [facility] Neutrophils/100 WBC Auto (Bl d)Ordered By: Rosalinda Bernstein on 09-30-2023 Neutrophils/100 WBC (Bld) 39.3 % . [facility] Nitrite Test strip Ql (U)Ord ered By: Rosalinda Bernstein on 09-30-2023 Nitrite Ql (U) Negative Negative [facility] No Panel InformationOrdered By: Rosalinda Bernstein on 09-30-2023 Estimated GFR (CKD-EPI) > 60.0 mL/Min [facility] Creatinine Clearance (Chem N/A [facility] Nucleated erythrocytes [Pres ence] in Blood by Automated countOrdered By: Rosalinda Bernstein on 09-30-2023 Nucleated RBC Auto Ql (Bld) 0.1 /100{WBC} 0-0.5 [facility] Partial Thromboplastin Timeo n 09-30-2023 aPTT Coag (Bld) [Time] 35.6 s Normal 25.1-36.5 [facility] Comment on above: Result Comment: A he matocrit value greater than 55% may lead to inaccurate results in coagulation testing. Patients having hematocrit values >55% require a special collection tube for coagulation studies. Please contact the laboratory at [phone] for redraw instructions. PERFORMED BY: [place] [address] PATHOLOGIST GATE TECHNICIAN LILIANA WAKEFIELD M.D. Performed By: #### P TT, PT #### [address] Platelet mean volume Auto (B ld) [Entitic vol]Ordered By: Rosalinda Bernstein on 09-30-2023 Platelet mean volume (Bld) [Entitic vol] 7.0 fL 6.3-10.7 [facility] Platelets Auto (Bld) [#/Vol] Ordered By: Rosalinda Bernstein on 09-30-2023 Platelets (Bld) [#/Vol] 320 10*3/uL 150-450 [facility] Potassium [Moles/volume] in Serum or PlasmaOrdered By: Rosalinda Bernstein on 09-30-2023 Potassium [Moles/Vol] 4.2 mmol/L 3.5-5.1 [facility] Protein Auto test strip (U) [Mass/Vol]Ordered By: Rosalinda Bernstein on 09-30-2023 Protein (U) [Mass/Vol] Negative Negative [facility] Protein [Mass/volume] in Ser um or PlasmaOrdered By: Rosalinda Bernstein on 09-30-2023 Protein [Mass/Vol] 7.7 g/dL 6.4-8.9 [facility] Prothrombin Time INRon 09-29 INR Coag (PPP) [Relative time] 1.0 {INR} Normal [facility] Comment on above: Result Comment: INR Therapeutic Range A) Pre- and Peroperative OAT started two weeks before surgery. NOT HIP SURGERY: 1.5 - 2.5 HIP SURGERY: 2 - 3 B) Primary and secondary prevention of venous THROMBOSIS: 2 - 3 C) Active venous thrombosis, pulmonary embolism and prevention of recurrent venous thrombosis: 2 - 3 D) Prevention of arterial thromboembolism including patients with mechanical heart valves: 3 - 4.5 Performed By: #### P TT, PT #### [facility] [address] PT Coag (PPP) [Time] 11.1 s Normal 9.0-12.9 [facility] Comment on above: Result Comment: A he matocrit value greater than 55% may lead to inaccurate results in coagulation testing. Patients having hematocrit values >55% require a special collection tube for coagulation studies. Please contact the laboratory at [phone] for redraw instructions. Performed By: #### P TT, PT #### [facility] [address] [place] [id number] [facility] Prothrombin time (PT)Ordered By: Rosalinda Bernstein on 09-30-2023 PT Coag (PPP) [Time] 11.1 s 9.0-12.9 [facility] Comment on above: A hematocrit value g reater than 55% may lead to inaccurate results in coagulation testing. Patients having hematocrit values >55% require a special collection tube for coagulation studies. Please contact the laboratory at [phone] for redraw instructions. RBC Auto (Bld) [#/Vol]Ordere d By: Rosalinda Bernstein on 09-30-2023 RBC (Bld) [#/Vol] 4.35 10*6/uL 3.60-5.00 [facility] Serum or plasma albumin/glob ulin mass ratioOrdered By: Rosalinda Bernstein on 09-30-2023 Albumin/Globulin [Mass ratio] 1.2 {ratio} [facility] Serum or plasma anion gap de terminationOrdered By: Rosalinda Bernstein on 09-30-2023 Anion gap [Moles/Vol] 12.0 mmol/L 6.0-15.0 [facility] Sodium [Moles/volume] in Ser um or PlasmaOrdered By: Rosalinda Bernstein on 09-30-2023 Sodium [Moles/Vol] 131 mmol/L 136-145 [facility] Specific gravity Auto test s trip (U) [Rel density]Ordered By: Rosalinda Bernstein on 09-30-2023 Specific gravity (U) [Rel density] 1.006 1.001-1.030 [facility] Urea nitrogen [Mass/volume] in Serum or PlasmaOrdered By: Rosalinda Bernstein on 09-30-2023 Urea nitrogen [Mass/Vol] 9 mg/dL 7-25 [facility] Urinalysison 09-30-2023 Appearance (U) Clear Normal Clear [facility] Comment on above: Order Comment: Name Collection Type:: Clean-Voided Midstream Performed By: #### U A, A1C WT eA #### [facility] [address] [place] [address] [facility] Bilirubin,Urine Negative Normal Negative [facility] Comment on above: Order Comment: Name Collection Type:: Clean-Voided Midstream Performed By: #### U A, A1C WT eA #### [facility] [address] [place] [address] [place] Color (U) Yellow Normal Yellow [facility] Comment on above: Order Comment: Name Collection Type:: Clean-Voided Midstream Performed By: #### U A, A1C WTH eA #### [address] Glucose Ql (U) Normal Normal Normal [facility] Comment on above: Order Comment: Name Collection Type:: Clean-Voided Midstream Performed By: #### U A, A1C WTH eA #### [place] [address] [place] Ketones Ql (U) Negative Normal Negative [facility] Comment on above: Order Comment: Name Collection Type:: Clean-Voided Midstream Performed By: #### U A, A1C WTH eA #### [address] Leukocyte esterase Test strip Ql (U) Negative Normal Negative [facility] Comment on above: Order Comment: Name Collection Type:: Clean-Voided Midstream Performed By: #### U A, A1C WTH eA #### [place] [address] [place] Nitrite,Urine Negative Normal Negative [facility] Comment on above: Order Comment: Name Collection Type:: Clean-Voided Midstream Performed By: #### U A, A1C WTH eA #### [place] [address] [place] Occult Blood,Urine Negative Normal Negative [facility] Comment on above: Order Comment: Name Collection Type:: Clean-Voided Midstream Result Comment: PERF ORMED BY: [place] [address] PATHOLOGIST GATE TECHNICIAN LILIANA WAKEFIELD M.D. Performed By: #### U A, A1C WTH eA #### [place] [address] [place] pH (U) 7.0 [pH] Normal 5.0-9.0 [facility] Comment on above: Order Comment: Name Collection Type:: Clean-Voided Midstream Performed By: #### U A, A1C WTH eA #### [facility] [address] [place] [address] Protein,Urine Negative Normal Negative [facility] Comment on above: Order Comment: Name Collection Type:: Clean-Voided Midstream Performed By: #### U A, A1C WTH eA #### [address] Specificy [place],Urine 1.006 Normal 1.001-1.030 [facility] Comment on above: Order Comment: Name Collection Type:: Clean-Voided Midstream Performed By: #### U A, A1C WTH eA #### [address] Urobilinogen,Urine Normal Normal Normal [facility] Comment on above: Order Comment: Name Collection Type:: Clean-Voided Midstream Performed By: #### U A, A1C WTH eA #### [address] Urine Cultureon 09-30-2023 Bacteria identified Cx Nom (U) <9,000 colonies/ml mixed bacterial skin contaminants 2 Days PERFORMED BY: [place] [address] PATHOLOGIST GATE TECHNICIAN LILIANA WAKEFIELD M.D. Normal [facility] Comment on above: Performed By: #### C UU #### [address] Urine clarity by refractomet ry automatedOrdered By: Rosalinda Bernstein on 09-30-2023 Clarity Refractometry automated (U) Clear Clear [facility] Urine glucose measurement by automated test strip (mass/volume)Ordered By: Rosalinda Bernstein on 09-30-2023 Glucose Auto test strip (U) [Mass/Vol] Normal mg/dL Normal [facility] Urine hemoglobin detection b y automated test stripOrdered By: Rosalinda Bernstein on 09-30-2023 Hemoglobin Auto test strip Ql (U) Negative Negative [facility] Urine leukocyte esterase det ection by automated test stripOrdered By: Rosalinda Bernstein on 09-30-2023 Leukocyte esterase Auto test strip Ql (U) Negative Negative [facility] Urobilinogen Auto test strip (U) [Mass/Vol]Ordered By: Rosalinda Bernstein on 09-30-2023 Urobilinogen (U) [Mass/Vol] Normal mg/dL Normal [facility] WBC Auto (Bld) [#/Vol]Ordere d By: Rosalinda Bernstein on 09-30-2023 WBC (Bld) [#/Vol] 7.3 10*3/uL 3.8-11.6 [facility] XR chest 2V*on 09-30-2023 XR chest 2V* [facility] [place] [address] XRay Report Signed Patient: Gia Ruiz MR#: [id number] : 1950 Acct:[id number] Age/Sex: 73 / F ADM Date: 09/30/23 Loc: Room: Type: [facility] Attending Dr: Rosalinda Bernstein PA-C Copies to: Rosalinda Bernstein PA-C Ordering Provider: Rosalinda Bernstein PA-C Date of Service: 09/30/23 XR/XR chest 2V*: Z01.818 Chest 2 views CLINICAL HISTORY: Preop left TKA COMPARISON: None FINDINGS: Heart appears normal in size. Evidence old granulomatous disease. No consolidation pneumothorax pleural effusion or free air. XR/XR chest 2V* IMPRESSION: NO ACUTE CARDIOPULMONARY ABNORMALITY. Impression dictated by: Hector Avery Jr., D.O.09/30/2023 3:53 PM Dictation Location: [place] [address] Transcribed By: [facility] 09/30/23 155 Dictated By: Hector Avery Jr, DO 09/30/23 1552 Signed By: 09/30/23 155 Normal [facility] pH Auto test strip (U)Ordere d By: Rosalinda Bernstein on 09-30-2023 pH (U) 7.0 [pH] 5.0-9.0 [facility] Ambulatory Visit Summaryon 0 09-14-2023 Ambulatory Visit Summary GIA RUIZ :1950 Visit Date:09/14/2023 Ambulatory Visit Instructions Your Diagnosis Asymptomatic microscopic hematuria Your Care Team Attending Physician - EDWINA MOSLEY, Bertha Vu Primary Care Physician - Bambi Reynolds This Is Your Medications List Misc Prescription (BACLOFEN 10 MG TABLET) acetaminophen (acetaminophen 650 mg oral tablet, extended release) adalimumab (Humira 40 mg/0.8 mL subcutaneous kit) ascorbic acid (Vitamin C) aspirin (aspirin 81 mg Oral EC Tab) atorvastatin (atorvastatin 20 mg Tab) biotin budesonide cholecalciferol (Vitamin D3) cranberry hydrochlorothiazide-lo sartan (hydrochlorothiazide-l osartan 25 mg-100 mg Tab) levocarnitine (L-Carnitine) levothyroxine (levothyroxine 125 mcg (0.125 mg) Tab) liothyronine (liothyronine 5 mcg Tab) magnesium gluconate (magnesium gluconate 500 mg oral tablet) melatonin metformin (metformin 500 mg ER Tab) methylcobalamin (Methyl B-12) multivitamin with iron (Iron 100 Plus) omega-3 polyunsaturated fatty acids (Fish Oil) omeprazole (omeprazole 20 mg Cap-DR) ubiquinone (CoQ10) zinc sulfate (Zinc) Procedures Performed Appendectomy, Arthroscopy of knee, Arthroscopy, knee, surgical; with meniscus repair (medial OR lateral), Cervical polypectomy, Colonoscopy, Cyst, Cystoscopy, Hysterectomy, Thyroidectomy. What to do next Scheduled Follow-Up Appointments Thursday 11:20 AM EDT With: Bambi Reynolds Where: [facility] Invalid Interpretation Code [address] [place] [address]- \.br\ 2023 1:00 PM EST \.br\ With:\.br\ Where: [facility] Consultation Noteon 09-09-19 Consultation Note [id number]#1.0 0TIFF Normal [facility] Consultation Noteon 09-04-19 Consultation Note [id number]#1.0 0TIFF Normal [facility] Ambulatory Visit Summaryon 0 08-26-2023 Ambulatory Visit Summary GIA RUIZ :1950 Visit Date:08/26/2023 Ambulatory Visit Instructions Your Diagnosis Type II diabetes mellitus BMI 39.0-39.9,adult Non-smoker Your Care Team Attending Physician - Bambi Reynolds Primary Care Physician - Bambi Reynolds This Is Your Medications List Misc Prescription (BACLOFEN 10 MG TABLET) acetaminophen (acetaminophen 650 mg oral tablet, extended release) adalimumab (Humira 40 mg/0.8 mL subcutaneous kit) ascorbic acid (Vitamin C) aspirin (aspirin 81 mg Oral EC Tab) atorvastatin (atorvastatin 20 mg Tab) biotin budesonide cholecalciferol (Vitamin D3) cranberry hydrochlorothiazide-lo sartan (hydrochlorothiazide-l osartan 25 mg-100 mg Tab) levocarnitine (L-Carnitine) levothyroxine (levothyroxine 125 mcg (0.125 mg) Tab) liothyronine (liothyronine 5 mcg Tab) magnesium gluconate (magnesium gluconate 500 mg oral tablet) melatonin metformin (metformin 500 mg ER Tab) methylcobalamin (Methyl B-12) multivitamin with iron (Iron 100 Plus) omega-3 polyunsaturated fatty acids (Fish Oil) omeprazole (omeprazole 20 mg Cap-DR) ubiquinone (CoQ10) zinc sulfate (Zinc) Procedures Performed Appendectomy, Arthroscopy of knee, Arthroscopy, knee, surgical; with meniscus repair (medial OR lateral), Cervical polypectomy, Colonoscopy, Cyst, Cystoscopy, Hysterectomy, Thyroidectomy. Discharge Vitals Heart Rate (Peripheral) 68 Respiratory Rate 18 Blood Pressure 138/88 Height 158.0 cm Height 62 in Weight 97.5 kg Weight 214.5 lb BMI 39.06 What to do next Scheduled Follow-Up Appointments Thursday 10:00 AM EDT With: Where: [facility] Invalid Interpretation Code [address] [place] [address]- \.br\ 2023 1:00 PM EST \.br\ With:\.br\ Where: [facility] Medicine [facility] Family Medicine Office/Clini c Noteon 08-26-2023 Family Medicine Office/Clinic Note HPI Staff Gia is a 73 year old female presenting to discuss medication pt wanting to discuss monjaro A1c: 07/21/23 5.9 pt has been seeing Dr young in [place] for weight loss had been taking Phentermine lost over 60 pounds had stroke 09/10/2019 and hasn't taken anything since has gained 50 pounds back. Lowest weight 169. Pt seen her GI 2 weeks ago follows for Chrons and he stated monjaro would be good option. History of Present Illness pt presents today to discuss diabetes and weight loss Review of Systems PHQ Score Initial Depression Screen Score: 0 SCORE Physical Exam Vitals & Measurements HR: 68(Peripheral) RR: 18 BP: 138/88 SpO2: 97% HT: 62 in HT: 158.0 cm WT: 97.5 kg WT: 214.5 lb BMI: 39.06 General: alert, no acute distress ENMT: oral mucosa moist, no pharyngeal erythema or exudate Cardiovascular: regular rate and rhythm, normal peripheral perfusion Respiratory: Lungs CTA, respirations non labored Extremities: no deformity, no trauma Neurological: oriented x 4, LOC appropriate for age, CN II-XII intact, motor strength equal & normal bilaterally, speech normal Assessment/Plan 1. Type II diabetes mellitus (E11.9: Type 2 diabetes mellitus without complications) pt here to discuss starting mounjaro for diabetes and weight loss. she has put on 50 pounds and wants to work on getting the weight back off to help with diabetes and her knee pain. she sees Dr. Young for weight loss and has appointment with him later. she just wanted to check with PCP before starting medication. 2. BMI 39.0-39.9,adult (Z68.39: Body mass index [BMI] 39.0-39.9, adult) BMI education complete 3. Non-smoker (Z78.9: Other specified health status) continue not smoking Orders: atorvastatin, 20 mg = 1 tab(s), Oral, Daily, # 90 tab(s), Refills(s) 1, [facility], cm, 05/13/23 14:24:00 EST, Height/Length Dosing, 95.1, kg, 05/13/23 14:24:00 EST, Weight Dosing atorvastatin, 20 mg = 1 tab(s), Oral, Daily, X 90 day(s), # 90 tab(s), Refills(s) 3, Pharmacy: [facility], 158, cm, 08/26/23 10:12:00 EDT, Height/Length Dosing, 97.5, kg, 08/26/23 10:12:00 EDT, Weight Dosing levothyroxine, 125 mcg = 1 tab(s), Oral, Daily, # 7 tab(s), Refills(s) 0, Pharmacy: [facility] #[id number], 159, cm, 05/13/23 14:24:00 EST, Height/Length Dosing, 95.1, kg, 05/13/23 14:24:00 EST, Weight Dosing Follow-up No qualifying data available Problem List/Past Medical History Ongoing Asymptomatic microscopic hematuria GERD (gastroesophageal reflux disease) HTN (hypertension) Hyperlipidemia Hypothyroidism Incomplete bladder emptying Kidney stone JOSE RAMON (obstructive sleep apnea) Type II diabetes mellitus UTI (urinary tract infection) Historical No qualifying data Procedure/Surgical History Appendectomy, Arthroscopy of knee, Arthroscopy, knee, surgical; with meniscus repair (medial OR lateral), Cervical polypectomy, Colonoscopy, Cyst, Cystoscopy, Hysterectomy, Thyroidectomy. Medications acetaminophen 650 mg oral tablet, extended release, Oral, q8hr aspirin 81 mg Oral EC Tab, Oral, Daily atorvastatin 20 mg Tab, 20 mg= 1 tab(s), Oral, Daily, 3 refills BACLOFEN 10 MG TABLET, 0 biotin, Oral, Daily budesonide, 32 mcg, Inhalation, Bedtime CoQ10, Oral, Daily cranberry Fish Oil, 1200 mg, Oral, Daily Humira 40 mg/0.8 mL subcutaneous kit, 40 mg= 0.8 mL, SubCutaneous, q2wk hydrochlorothiazide-lo sartan 25 mg-100 mg Tab, 1 tab(s), Oral, Daily Iron 100 Plus, 1 tab(s), Oral, Daily L-Carnitine, 2000 mg, Oral, Daily levothyroxine 125 mcg (0.125 mg) Tab, 125 mcg= 1 tab(s), Oral, Daily liothyronine 5 mcg Tab, 5 mcg= 1 tab(s), Oral, Daily magnesium gluconate 500 mg oral tablet, Oral, BID melatonin, Once a day (at bedtime) metformin 500 mg ER Tab, 500 mg= 1 tab(s), Oral, TID, 1 refills Methyl B-12, See Instructions omeprazole 20 mg Cap-DR, 20 mg= 1 cap(s), Oral, Daily, 1 refills Vitamin C, Daily Vitamin D3, 50 mcg, Oral, Thursday Zinc, Oral, Daily Allergies Bactrim DS (Rash) Percocet (Hallucinations) Social History Alcohol 1-2 times per year, Household alcohol concerns: No., 05/13/2023 Tobacco Former smoker, quit more than 30 days ago, quit 20 years ago Tobacco Use:. Never Smokeless Tobacco Use:. Cigarettes, Household tobacco concerns: No. Yes, 08/26/2023 Family History Acute myocardial infarction: Brother. Breast cancer: Mother. Diabetes mellitus type 1: Mother. Heart disease: Brother. High cholesterol: Mother. Hypertension: Mother and Father. Lung cancer: Mother. Primary malignant neoplasm of prostate: Brother. Psychiatric behavioural disability: Mother. Stroke: Mother and Brother. Immunizations Vaccine Date Status Comments influenza virus vaccine, inactivated 04/21/2022 Recorded SARS-CoV-2 (COVID-19) [id number] 04/21/2022 Recorded influenza virus vaccine, inactivated 03/15/2021 Recorded SARS-CoV-2 (COVID-19) mRNA [id number] vax 03/15/2021 Recorded (more content not included)... Normal [facility] Comment on above: Result Comment: Elec tronically Signed By: Bambi Reynolds\.br\Date and Time Signed: 08/26/23 10:54 EDT Ambulatory Visit Summaryon 0 08-17-2023 Ambulatory Visit Summary GIA RUIZ Anthony :1950 Visit Date:08/17/2023 Ambulatory Visit Instructions Your Diagnosis Incomplete bladder emptying UTI (urinary tract infection) Kidney stone Asymptomatic microscopic hematuria Tests Performed US Renal -- Results Pending -- XR Abdomen 1 View -- Results Pending -- Please visit your patient portal for your results or contact your primary care physician. Your Care Team Attending Physician - EDWINA MOSLEY, Bertha Vu Primary Care Physician - Bambi Reynolds This Is Your Medications List Contact prescribing physician if questions or concerns Misc Prescription (BACLOFEN 10 MG TABLET) acetaminophen (acetaminophen 650 mg oral tablet, extended release) adalimumab (Humira 40 mg/0.8 mL subcutaneous kit) ascorbic acid (Vitamin C) aspirin (aspirin 81 mg Oral EC Tab) atorvastatin (atorvastatin 20 mg Tab) biotin budesonide cholecalciferol (Vitamin D3) cranberry hydrochlorothiazide-lo sartan (hydrochlorothiazide-l osartan 25 mg-100 mg Tab) levocarnitine (L-Carnitine) levothyroxine (levothyroxine 125 mcg (0.125 mg) Tab) levothyroxine (levothyroxine 125 mcg (0.125 mg) Tab) liothyronine (liothyronine 5 mcg Tab) magnesium gluconate (magnesium gluconate 500 mg oral tablet) melatonin metformin (metformin 500 mg ER Tab) methylcobalamin (Methyl B-12) multivitamin with iron (Iron 100 Plus) multivitamin with iron (Poly Iron Forte oral capsule) multivitamin with minerals (Viactiv Soft Calcium Chews) omega-3 polyunsaturated fatty acids (Fish Oil) omeprazole (omeprazole 20 mg Cap-DR) tramadol (traMADOL 50 mg Tab) ubiquinone (CoQ10) zinc sulfate (Zinc) Procedures Performed Appendectomy, Arthroscopy of knee, Arthroscopy, knee, surgical; with meniscus repair (medial OR lateral), Cervical polypectomy, Colonoscopy, Cyst, Cystoscopy, Hysterectomy, Thyroidectomy. Discharge Vitals Temperature (Temporal Artery) 36.9 ?C Heart Rate (Peripheral) 78 Respiratory Rate 16 Blood Pressure 131/87 Height 158 cm Height 62 in Weight 93 kg Weight 204.6 lb BMI 37.25 What to do next Scheduled Follow-Up Appointments Thursday 10:00 AM EDT With: Where: [facility] Invalid Interpretation Code [address] [place] [address] [place] [address]- \.br\ Thursday 1:00 PM EST \.br\ With:\.br\ Where: [facility] Family Medicine [facility] Patient Educationon 08-17-19 24 Patient Education Obstetrics and Gynecology Acute Urinary Retention, Female Acute urinary retention is a condition in which a person is unable to pass urine or can only pass a little urine. This condition can happen suddenly and last for a short time. If left untreated, it can become long-term (chronic) and result in kidney damage or other serious complications. What are the causes? This condition may be caused by: ? Obstruction or narrowing of the tube that drains the bladder (urethra). This may be caused by surgery, problems with nearby organs, or injury to the bladder or urethra. ? Problems with the nerves in the bladder. ? Pelvic organ prolapse. ? Tumors in the area of the pelvis, bladder, or urethra. ? Vaginal childbirth. ? Bladder or urinary tract infection. ? Constipation. ? Certain medicines. What increases the risk? This condition is more likely to develop in women over age 50. Other chronic health conditions can increase the risk of acute urinary retention. These include: ? Diseases such as multiple sclerosis. ? Spinal cord injuries. ? Diabetes. ? Degenerative cognitive conditions, such as delirium or dementia. ? Psychological conditions. A woman may hold her urine due to trauma or because she does not want to use the bathroom. ? History of preexisting urinary retention. ? History of prior pelvic surgery, incontinence surgery, or radical pelvic surgery. What are the signs or symptoms? Symptoms of this condition include: ? Trouble urinating. ? Pain in the lower abdomen. How is this diagnosed? This condition is diagnosed based on a physical exam and your medical history. You may also have other tests, including: ? An ultrasound of the bladder or kidneys or both. ? Blood tests. ? A urine analysis. ? Additional tests may be needed, such as a CT scan, MRI, and kidney or bladder function tests. How is this treated? Treatment for this condition may include: ? Medicines. ? Placing a thin, sterile tube (catheter) into the bladder to drain urine out of the body. This is called an indwelling urinary catheter. After it is inserted, the catheter is held in place with a small balloon that is filled with sterile water. Urine drains from the catheter into a collection bag outside of the body. ? Behavioral therapy. ? Treatment for other conditions. If needed, you may be treated in the hospital for kidney function problems or to manage other complications. Follow these instructions at home: Medicines ? Take [id number] and prescription medicines only as told by your health care provider. Avoid certain medicines, such as decongestants, antihistamines, and some prescription medicines. Do not take any medicine unless your health care provider approves. ? If you were prescribed an antibiotic medicine, take it as told by your health care provider. Do not stop using the antibiotic even if you start to feel better. General instructions ? Do not use any products that contain nicotine or tobacco. These products include cigarettes, chewing tobacco, and vaping devices, such as e-cigarettes. If you need help quitting, ask your health care provider. ? Drink enough fluid to keep your urine pale yellow. ? If you have an indwelling urinary catheter, follow the instructions from your health care provider. ? Monitor any changes in your symptoms. Tell your health care provider about any changes. ? If instructed, monitor your blood pressure at home. Report changes as told by your health care provider. ? Keep all follow-up visits. This is important. Contact a health care provider if: ? You have uncomfortable bladder contractions that you cannot control (spasms). ? You leak urine with the spasms. Get help right away if: ? You have chills or a fever. ? You have blood in your urine. ? You have a catheter and the following happens: ? Your catheter stops draining urine. ? Your catheter falls out. Summary ? Acute urinary retention is a condition in which a person is unable to pass urine or can only pass a little urine. If left untreated, this can result in kidney damage or other serious complications. ? One cause of this condition may be obstruction or narrowing of the tube that drains the bladder (urethra). This may be caused by surgery, problems with nearby organs, or injury to the bladder or urethra. ? Treatment may include medicines and placement of an indwelling urinary catheter. ? Monitor any changes in your symptoms. Tell your health care provider about any changes. This information is not intended to replace advice given to you by your health care provider. Make sure you discuss any questions you have with your health care provider. Document Revised: 01/23/2021 Document Reviewed: 01/23/2021 [employer] Patient Education ? 2022 [employer] Normal [facility] Urology Office/Clinic Noteon 08-17-2023 Urology Office/Clinic Note Chief Complaint hx of UTI HPI Staff 6 month f/u with PVR. Dx: UTI, kidney stone and asymptomatic microhematuria Dysuria: no Incomplete bladder emptying: Pt states that she normally does double voids but did not this morning and PVR is 326ml Hematuria: no Frequency: states the she voids a lot but drinks about 80oz a day Urgency: yes Nocturia: 1-2x Stream: no straining with first void but states that when she tries to void for the second time she strains a bit Leaking: yes Post void dripping: no Wearing pads/ Depends: wears pads changes about 2x daily Urge incontinence: yes once in a while Stress incontinence: no Incontinence without Sensory Awareness: no Abdominal pain: no Flank pain: no Sexual complaints: no History of Present Illness Tests reviewed: reviewed UA, PVR I have reviewed the previous health record information and history for this patient from Dr. Bland. I have reviewed and verified the staff HPI to be accurate for this encounter. Review of Systems PHQ Score Initial Depression Screen Score: 0 SCORE ROS - Provider Constitutional: denies weight loss, denies hot flashes. Eyes: denies eye problems. Gastrointestinal: denies nausea, denies vomiting. Cardiovascular: denies chest pain or angina. Integumentary: no dryness Musculoskeletal: denies musculoskeletal symptoms. ENMT: denies otolaryngeal symptoms. Respiratory: no shortness of breath. Heme/Lymph: denies easy bleeding tendency, denies easy bruising tendency. Psychiatric: no confusion, no anxiety. Genitourinary: See HPI. Physical Exam Vitals & Measurements T: 36.9 ?C(Temporal Artery) HR: 78(Peripheral) RR: 16 BP: 131/87 HT: 62 in HT: 158 cm WT: 93 kg WT: 204.6 lb BMI: 37.25 General Appearance: alert, no distress, well nourished, well developed male. Genitourinary: normal scrotum, normal testes, normal urethra, normal epididymis, normal vas deferens/spermatic cord. Flank Pain: none. Bladder: nonpalpable. Assessment/Plan 1. Incomplete bladder emptying (R33.9: Retention of urine, unspecified) PVR (cc): 02/13/23 - 120 (voided 45 min prior) 08/17/23 - 326 (did not perform double void maneuver) States she typically performs double, sometimes triple, void maneuvers with every void. Voids every few hours. Drinks at least 80oz of water per day. Denies leakage with cough/sneezing. Occasional urge incontinence, not bothersome. Discussed possible bladder dysfunction secondary to stroke. Will continue to monitor PVRs. -Cont double and timed voids -Nurse visit 1 month for PVR -TIM in 6 mos 2. UTI (urinary tract infection) (N39.0: Urinary tract infection, site not specified) Hx of hysterectomy and urethral dilation many years ago. Urine cx done 05/05/22 klebsiella variicola. Urine cx done 05/20/22 klebsiella pneumoniae. U.Cx 09/23/22 - E.Coli, treated with Bactrim, finished full course, started having an allergic reaction afterwards. U.Cx 10/06/22 - E.Coli [1] Denies any infections in the past 6 months. UA today negative for infection. 3. Kidney stone (N20.0: Calculus of kidney) KUB 07/22/22 - Lt nephrolithiasis CT 08/19/22 - 2 nonobstructing 3 mm stones in the Lt kidney [2] -KUB/TIM in 6 mos 4. Asymptomatic microscopic hematuria (R31.21: Asymptomatic microscopic hematuria) Hx of bladder prolapse. S/p bladder hysterectomy and sling done 01/[address] Beverly. S/p Cysto 07/29/22 - normal, no need for UD [3] UA today negative for blood. -Cont routine UAs and sx monitoring. Pt knows to notify the office if she were to experience gross hematuria or clots. Follow-up With When Contact Information EDWINA MOSLEY, Bertha Vu, [facility] [address], [place] [address] [phone] Additional Instructions: 6 mos w/ KUB and TIM, nurse visit for PVR in 1 month Patient Education Acute Urinary Retention, Female I, Nusrat Vernon, personally scribed for Dr. Bland on 08/17/2023 12:31:53. . Documentation recorded by the Nusrat moreno, accurately reflects the services(s) I performed and decisions made by me. Authenticated by Dr. Bland on 08/17/2023 12:34:08. Problem List/Past Medical History Ongoing Asymptomatic microscopic hematuria GERD (gastroesophageal reflux disease) HTN (hypertension) Hyperlipidemia Hypothyroidism Incomplete bladder emptying Kidney stone JOSE RAMON (obstructive sleep apnea) Type II diabetes mellitus UTI (urinary tract infection) Historical No qualifying data Procedure/Surgical History Appendectomy, Arthroscopy of knee, Arthroscopy, knee, surgical; with meniscus repair (medial OR lateral), Cervical polypectomy, Colonoscopy, Cyst, Cystoscopy, Hysterectomy, Thyroidectomy. Medications acetaminophen 650 mg oral tablet, extended release, Oral, q8hr aspirin 81 mg Oral EC Tab, Oral, Daily atorvastatin 20 mg Tab, 20 mg= 1 tab(s), Oral, Daily, 1 refills BACLOFEN 10 MG TABLET, 0 biotin, Oral, Da (more content not included)... Normal [facility] Comment on above: Result Comment: Elec tronically Signed By: Bertha BLAND MD\.br\Date and Time Signed: 08/17/23 12:34 EDT\.br\Electronically Co-Signed By: Nusrat Vernon\.br\Date and Time Co-Signed: 08/17/23 12:32 EDT Consultation Noteon 08-14-19 Consultation Note [id number]#1.0 0TIFF Normal [facility] Basophils Auto (Bld) [#/Vol] Ordered By: Cesar Estrada on 08-13-2023 Basophils (Bld) [#/Vol] 0.1 10*3/uL 0.0-0.2 [facility] Basophils/100 WBC Auto (Bld) Ordered By: Cesar Estrada on 08-13-2023 Basophils/100 WBC (Bld) 0.8 % . [facility] C reactive protein [Mass/vol ume] in Serum or PlasmaOrdered By: Cesar Estrada on 08-13-2023 CRP [Mass/Vol] < 0.5 mg/dL 0.0-0.5 [facility] C-Reactive Proteinon 024 CRP [Mass/Vol] mg/L Normal 0.0-0.5 [facility] Comment on above: Result Comment: PERF ORMED BY: [facility] [address] [address] PATHOLOGIST GATE TECHNICIAN LILIANA WAKEFIELD M.D. Performed By: #### C RP, CBC ####[facility] [address] [place] [address] [facility] Complete Blood Count Auto Di ffon 08-13-2023 Basophils (Bld) [#/Vol] 0.1 10*3/uL Normal 0.0-0.2 [facility] Comment on above: Result Comment: PERF ORMED BY: [facility] [place] [address] PATHOLOGIST GATE TECHNICIAN LILIANA WAKEFIELD M.D. Performed By: #### C RP, CBC ####[address] Basophils/100 WBC (Bld) 0.8 % Normal . [facility] Comment on above: Performed By: #### C RP, CBC ####[address] Eosinophils (Bld) [#/Vol] 0.3 10*3/uL Normal 0.0-0.45 [facility] Comment on above: Performed By: #### C RP, CBC ####[address] Eosinophils/100 WBC (Bld) 3.2 % Normal . [facility] Comment on above: Performed By: #### C RP, CBC ####[address] Erythrocyte distribution width (RBC) [Ratio] 13.8 % Normal 11.9-15.3 [facility] Comment on above: Performed By: #### C RP, CBC ####[address] Hematocrit (Bld) [Volume fraction] 36.9 % Normal 34.0-46.4 [facility] Comment on above: Performed By: #### C RP, CBC ####[address] Hemoglobin (Bld) [Mass/Vol] 12.2 g/dL Normal 11.8-15.4 [facility] Comment on above: Performed By: #### C RP, CBC ####[address] Lymphocytes (Bld) [#/Vol] 3.3 10*3/uL Normal 1.00-4.8 [facility] Comment on above: Performed By: #### C RP, CBC ####[address] Lymphocytes/100 WBC (Bld) 38.8 % Normal . [facility] Comment on above: Performed By: #### C RP, CBC ####[address] MCH (RBC) [Entitic mass] 29.4 pg Normal 24.7-34.3 [facility] Comment on above: Performed By: #### C RP, CBC ####[address] MCV (RBC) [Entitic vol] 88.8 fL Normal 80-100 [facility] Comment on above: Performed By: #### C RP, CBC ####[address] Mean Corpuscular HGB Conc 33.1 g/dL Normal 32.0-35.0 [facility] Comment on above: Performed By: #### C RP, CBC ####[address] Monocytes (Bld) [#/Vol] 0.8 10*3/uL Normal 0.0-0.8 [facility] Comment on above: Performed By: #### C RP, CBC ####[address] Monocytes/100 WBC (Bld) 9.8 % Normal . [facility] Comment on above: Performed By: #### C RP, CBC ####[address] Neutrophils (Bld) [#/Vol] 4.0 10*3/uL Normal 1.8-7.7 [facility] Comment on above: Performed By: #### C RP, CBC ####[address] Neutrophils/100 WBC (Bld) 47.4 % Normal . [facility] Comment on above: Performed By: #### C RP, CBC ####[address] NRBC% 0.1 /100{WBC} Normal 0-0.5 [facility] Comment on above: Performed By: #### C RP, CBC ####[address] Platelet mean volume (Bld) [Entitic vol] 6.8 fL Normal 6.3-10.7 [facility] Comment on above: Performed By: #### C RP, CBC ####[address] Platelets (Bld) [#/Vol] 309 10*3/uL Normal 150-450 [facility] Comment on above: Performed By: #### C RP, CBC ####[address] RBC (Bld) [#/Vol] 4.16 10*6/uL Normal 3.60-5.00 [facility] Comment on above: Performed By: #### C RP, CBC ####[address] WBC (Bld) [#/Vol] 8.5 10*3/uL Normal 3.8-11.6 [facility] Comment on above: Performed By: #### C RP, CBC ####[address] Eosinophils Auto (Bld) [#/Vo l]Ordered By: Cesar Estrada on 08-13-2023 Eosinophils (Bld) [#/Vol] 0.3 10*3/uL 0.0-0.45 [facility] Eosinophils/100 WBC Auto (Bl d)Ordered By: Cesar Estrada on 08-13-2023 Eosinophils/100 WBC (Bld) 3.2 % . [facility] Erythrocyte distribution wid th Auto (RBC) [Ratio]Ordered By: Cesar Estrada on 08-13-2023 Erythrocyte distribution width (RBC) [Ratio] 13.8 % 11.9-15.3 [facility] Hematocrit Auto (Bld) [Volum e fraction]Ordered By: Cesar Estrada on 08-13-2023 Hematocrit (Bld) [Volume fraction] 36.9 % 34.0-46.4 [facility] Hemoglobin [Mass/volume] in BloodOrdered By: Cesar Estrada on 08-13-2023 Hemoglobin (Bld) [Mass/Vol] 12.2 g/dL 11.8-15.4 [facility] Leukocytes [#/volume] correc lisa for nucleated erythrocytes in Blood by Automated counOrdered By: Cesar Estrada on 08-13-2023 WBC corrected for nucl RBC Auto (Bld) [#/Vol] 8.5 10*3/uL 3.8-11.6 [facility] Lymphocytes Auto (Bld) [#/Vo l]Ordered By: Cesar Estrada on 08-13-2023 Lymphocytes (Bld) [#/Vol] 3.3 10*3/uL 1.00-4.8 [facility] Lymphocytes/100 WBC Auto (Bl d)Ordered By: Cesar Estrada on 08-13-2023 Lymphocytes/100 WBC (Bld) 38.8 % . [facility] MCH Auto (RBC) [Entitic mass ]Ordered By: Cesar Estrada on 08-13-2023 MCH (RBC) [Entitic mass] 29.4 pg 24.7-34.3 [facility] MCHC Auto (RBC) [Mass/Vol]Or dered By: Cesar Estrada on 08-13-2023 MCHC (RBC) [Mass/Vol] 33.1 g/dL 32.0-35.0 [facility] MCV Auto (RBC) [Entitic vol] Ordered By: Cesar Estrada on 08-13-2023 MCV (RBC) [Entitic vol] 88.8 fL 80-100 [facility] Monocytes Auto (Bld) [#/Vol] Ordered By: Cesar Estrada on 08-13-2023 Monocytes (Bld) [#/Vol] 0.8 10*3/uL 0.0-0.8 [facility] Monocytes/100 WBC Auto (Bld) Ordered By: Cesar Estrada on 08-13-2023 Monocytes/100 WBC (Bld) 9.8 % . [facility] Neutrophils Auto (Bld) [#/Vo l]Ordered By: Cesar Estrada on 08-13-2023 Neutrophils (Bld) [#/Vol] 4.0 10*3/uL 1.8-7.7 [facility] Neutrophils/100 WBC Auto (Bl d)Ordered By: Cesar Estrada on 08-13-2023 Neutrophils/100 WBC (Bld) 47.4 % . [facility] Nucleated erythrocytes [Pres ence] in Blood by Automated countOrdered By: Cesar Estrada on 08-13-2023 Nucleated RBC Auto Ql (Bld) 0.1 /100{WBC} 0-0.5 [facility] Platelet mean volume Auto (B ld) [Entitic vol]Ordered By: Cesar Estrada on 08-13-2023 Platelet mean volume (Bld) [Entitic vol] 6.8 fL 6.3-10.7 [facility] Platelets Auto (Bld) [#/Vol] Ordered By: Cesar Estrada on 08-13-2023 Platelets (Bld) [#/Vol] 309 10*3/uL 150-450 [facility] RBC Auto (Bld) [#/Vol]Ordere d By: Cesar Estrada on 08-13-2023 RBC (Bld) [#/Vol] 4.16 10*6/uL 3.60-5.00 [facility] WBC Auto (Bld) [#/Vol]Ordere d By: Cesar Estrada on 08-13-2023 WBC (Bld) [#/Vol] 8.5 10*3/uL 3.8-11.6 [facility] Outside Diabetes Eye Examon 08-06-2023 Outside Diabetes Eye Exam [id number]#1.0 0TIFF Normal [facility] Consultation Noteon 06-11-19 Consultation Note [id number]#1.0 0TIFF Normal [facility] CHEMISTRYOrdered By: Serenity malhotranaresh on 05-13-2023 Cholesterol [Mass/Vol] 167 mg/dL Normal 120 - 200 mg/dL [facility] Cholesterol in HDL [Mass/Vol] 66 mg/dL Invalid Interpretation Code Rem[facility] Comment on above: Result Comment: '>= 60 LOW RISK' '<= 40 HIGH RISK' Cholesterol in LDL [Mass/Vol] 91 mg/dL Normal <=129mg/dL [facility] Cholesterol in VLDL [Mass/Vol] 23 mg/dL Normal 7 - 40 mg/dL [facility] Triglyceride [Mass/Vol] 114 mg/dL Normal <=149mg/dL [facility] CHEMISTRYOrdered By: SYSTEM SYSTEM on 05-13-2023 TSH Qn 2.29 m[IU]/L Normal 0.34 - 5.60 mcIU/mL Remisol Chem U Creatinine 26.0 mg/dL Invalid Interpretation Code Remisol Chem U Microalb microgram/mL Normal 0.0 - 19.0 mcg/mL Remisol Chem U Prot/Creat Ratio 19.60 mg/gm Cr Normal 0.00 - 200.00 mg/gm Cr Remisol Chem Ur Total Protein mg/dL Invalid Interpretation Code Remisol Chem Glucose Glucometer (BldC) [M ass/Vol]Ordered By: Cesar Estrada on 03-31-2023 Glucose [Mass/Vol] 96 mg/dL [facility] Comment on above: Random Glucose Refer ence Range is dependent on time and content of last meal. Glucose of more than 200 mg/dL in a nonstressed, ambulatory subject supports the diagnosis of Diabetes Mellitus. Glucose Poct Glucometerson 1 05-31-2022 Glucose [Mass/Vol] 96 mg/dL Normal [facility] Comment on above: Result Comment: [place] Glucose Reference Range is dependent on time and content of last meal. Glucose of more than 200 mg/dL in a nonstressed, ambulatory subject supports the diagnosis of Diabetes Mellitus. PERFORMED BY: [facility] [place] [address] PATHOLOGIST GATE TECHNICIAN LILIANA WAKEFIELD M.D. Performed By: #### G RAY #### Point of Care testing , Glucose Glucometer (BldC) [M ass/Vol]Ordered By: Cesar Estrada on 03-12-2023 Glucose [Mass/Vol] 94 mg/dL [facility] Comment on above: Random Glucose Refer ence Range is dependent on time and content of last meal. Glucose of more than 200 mg/dL in a nonstressed, ambulatory subject supports the diagnosis of Diabetes Mellitus. Glucose Poct Glucometerson 1 Glucose [Mass/Vol] 94 mg/dL Normal [facility] Comment on above: Result Comment: [place] om Glucose Reference Range is dependent on time and content of last meal. Glucose of more than 200 mg/dL in a nonstressed, ambulatory subject supports the diagnosis of Diabetes Mellitus. PERFORMED BY: [facility] [place] [address] PATHOLOGIST GATE TECHNICIAN LILIANA WAKEFIELD M.D. Performed By: #### G RAY #### Point of Care testing , Emmanuel 03-12-2023 L -- ---- Specimen: [id number] Received: 03/12/23 Status: JOAQUIN Herrera Num: [id number] Spec Type: Surgical Subm Dr: Cesar Estrada MD Tissues: A Colon Biopsy (RANDOM COLON BX) Procedures: HE/2, Gross/Micro L4 ---- Age/ Patient Sex Location Account Attending Physician ---- Gia Ruiz Anthony 73/F [id number] Cesar Estrada MD ---- SPEC NUM: [id number] RECD: 03/12/23 STATUS: JOAQUIN HERRERA NUM: [id number] UMM: 03/12/23 DR: Cesar Estrada MD ENTERED: 03/12/[address] [facility] [address]: ROGERIO TYPE: Surgical DEPT: S ORDERED: HE/2, Gross/Micro L4 ORDERED: HE/2, Gross/Micro L4 Pathological Diagnosis Random colon biopsy: - Colonic mucosa with mild chronic inflammation in the stroma of all fragments, in addition to minimal cryptitis with rare neutrophils in occasional crypts in at least 2 fragments without obvious crypt distortion, otherwise is most consistent with the only minor chronic inflammatory or disease activity of the stated history of Crohn's disease without glandular dysplasia Clinical Information Crohn's disease, rule out Crohn's Gross Description Received in formalin labeled with the patient's name, date of and random colon biopsy are four gunter tissues averaging 0.4 x 0.2 x 0.2 cm. Entirely submitted in one cassette labeled A1. Microscopic Description Two H E slides reviewed. The microscopic examination confirms the diagnosis. ---- Specimen: [id number] Received: 03/12/23 Status: JOAQUIN Herrera Num: [id number] Spec Type: Surgical Subm Dr: Cesar Estrada MD Tissues: A Colon Biopsy (RANDOM COLON BX) Procedures: Ophelia TAVERA/Barrera L4 ---- Patient: Gia Ruiz [id number] (Continued) ---- Specimen: [id number] Received: 03/12/23 (Continued) Signed (signature on file) Kavitha Friend MD 03/13/231711 ---- Specimen: [id number] Received: 03/12/23 Status: JOAQUIN Herrera Num: [id number] Spec Type: Surgical Subm Dr: Cesar Estrada MD Tissues: A Colon Biopsy (RANDOM COLON BX) Procedures: Ophelia TAVERA/Micro L4 ---- Patient: Gia Ruiz [id number] (Continued) ---- Specimen: [id number] Received: 03/12/23 (Continued) CPT Codes 11132 ---- ---- Specimen: [id number] Received: 03/12/23 Status: JOAQUIN Herrera Num: [id number] Spec Type: Surgical Subm Dr: Cesar Estrada MD Tissues: A Colon Biopsy (RANDOM COLON BX) Procedures: RENETTAOphelia [place]/Micro L4 ---- Patient: Gia Ruiz [id number] (Continued) ---- Signed (signature on file) Chin-Salbador Friend MD 03/13/23 1712 Normal [facility] Basic Metabolic Panelon 07-2 Anion gap [Moles/Vol] 10.7 mmol/L Normal 6.0-15.0 [facility] Comment on above: Performed By: #### B MP, CBC ####[place] [id number] [facility] Calcium [Mass/Vol] 8.3 mg/dL Low 8.6-10.3 [facility] Comment on above: Performed By: #### B MP, CBC ####[place] [address] [place] [id number] [facility] Chloride [Moles/Vol] 99 mmol/L Normal 98-107 [facility] Comment on above: Performed By: #### B MP, CBC ####[facility] [place] [address] [facility] CO2 [Moles/Vol] 27.2 mmol/L Normal 21.0-31.0 [facility] Comment on above: Performed By: #### B MP, CBC ####[place] [address] [place] [address] [facility] Creatinine [Mass/Vol] 0.68 mg/dL Normal 0.60-1.20 [facility] Comment on above: Performed By: #### B MP, CBC ####[address] Creatinine Clr Calc Pharmacy 70.52 Normal [facility] Comment on above: Result Comment: PERF ORMED BY: [facility] [address] [place] [address] PATHOLOGIST GATE TECHNICIAN LILIANA WAKEFIELD M.D. Performed By: #### B MP, CBC ####[place] [address] [place] GFR/1.73 sq M.predicted MDRD (S/P/Bld) [Vol rate/Area] mL/min/{1.73_m2} Normal [facility] Comment on above: Performed By: #### B MP, CBC ####[address] Glucose [Mass/Vol] 130 mg/dL High 70-100 [facility] Comment on above: Result Comment: [place] Glucose Reference Range is dependent on time and content of last meal. Glucose of more than 200 mg/dL in a nonstressed, ambulatory subject supports the diagnosis of Diabetes Mellitus. ADA recommended reference range Performed By: #### B MP, CBC ####[address] Potassium [Moles/Vol] 3.9 mmol/L Normal 3.5-5.1 [facility] Comment on above: Performed By: #### B MP, CBC ####[address] Sodium [Moles/Vol] 133 mmol/L Low 136-145 [facility] Comment on above: Performed By: #### B MP, CBC ####[place] [id number] [facility] Urea nitrogen [Mass/Vol] 14 mg/dL Normal 7-25 [facility] Comment on above: Performed By: #### B MP, CBC ####[address] Complete Blood Count Auto Di ffon 12-12-2022 Basophils (Bld) [#/Vol] 0.0 10*3/uL Normal 0.0-0.2 [facility] Comment on above: Result Comment: PERF ORMED BY: [facility] [address] [place] [address] PATHOLOGIST GATE TECHNICIAN LILIANA WAKEFIELD M.D. Performed By: #### B MP, CBC ####[address] Basophils/100 WBC (Bld) 0.3 % Normal . [facility] Comment on above: Performed By: #### B MP, CBC ####[address] Eosinophils (Bld) [#/Vol] 0.0 10*3/uL Normal 0.0-0.45 [facility] Comment on above: Performed By: #### B MP, CBC ####[address] Eosinophils/100 WBC (Bld) 0.2 % Normal . [facility] Comment on above: Performed By: #### B MP, CBC ####[address] Erythrocyte distribution width (RBC) [Ratio] 13.3 % Normal 11.9-15.3 [facility] Comment on above: Performed By: #### B MP, CBC ####[address] Hematocrit (Bld) [Volume fraction] 30.4 % Low 34.0-46.4 [facility] Comment on above: Performed By: #### B MP, CBC ####[address] Hemoglobin (Bld) [Mass/Vol] 10.3 g/dL Low 11.8-15.4 [facility] Comment on above: Performed By: #### B MP, CBC ####[address] Lymphocytes (Bld) [#/Vol] 2.6 10*3/uL Normal 1.00-4.8 [facility] Comment on above: Performed By: #### B MP, CBC ####[address] Lymphocytes/100 WBC (Bld) 24.0 % Normal . [facility] Comment on above: Performed By: #### B MP, CBC ####[address] MCH (RBC) [Entitic mass] 29.5 pg Normal 24.7-34.3 [facility] Comment on above: Performed By: #### B MP, CBC ####[address] MCV (RBC) [Entitic vol] 87.1 fL Normal 80-100 [facility] Comment on above: Performed By: #### B MP, CBC ####[address] Mean Corpuscular HGB Conc 33.9 g/dL Normal 32.0-35.0 [facility] Comment on above: Performed By: #### B MP, CBC ####[address] Monocytes (Bld) [#/Vol] 1.4 10*3/uL High 0.0-0.8 [facility] Comment on above: Performed By: #### B MP, CBC ####[address] Monocytes/100 WBC (Bld) 12.8 % Normal . [facility] Comment on above: Performed By: #### B MP, CBC ####[address] Neutrophils (Bld) [#/Vol] 6.9 10*3/uL Normal 1.8-7.7 [facility] Comment on above: Performed By: #### B MP, CBC ####[address] Neutrophils/100 WBC (Bld) 62.7 % Normal . [facility] Comment on above: Performed By: #### B MP, CBC ####[address] NRBC% 0.1 /100{WBC} Normal 0-0.5 [facility] Comment on above: Performed By: #### B MP, CBC ####[address] Platelet mean volume (Bld) [Entitic vol] 6.9 fL Normal 6.3-10.7 [facility] Comment on above: Performed By: #### B MP, CBC ####[address] Platelets (Bld) [#/Vol] 239 10*3/uL Normal 150-450 [facility] Comment on above: Performed By: #### B MP, CBC ####[address] RBC (Bld) [#/Vol] 3.49 10*6/uL Low 3.60-5.00 [facility] Comment on above: Performed By: #### B MP, CBC ####[address] WBC (Bld) [#/Vol] 10.9 10*3/uL Normal 3.8-11.6 [facility] Comment on above: Performed By: #### B MP, CBC ####[address] Glucose Poct Glucometerson 0 12-12-2022 Commemt1 Glu2: Cleaned Meter Normal [facility] Comment on above: Result Comment: PERF ORMED BY: [facility] [address] [place] [address] PATHOLOGIST GATE TECHNICIAN LILIANA WAKEFIELD M.D. Performed By: #### G RAY #### Point of Care testing , Glucose [Mass/Vol] 134 mg/dL Normal [facility] Comment on above: Result Comment: [place] Glucose Reference Range is dependent on time and content of last meal. Glucose of more than 200 mg/dL in a nonstressed, ambulatory subject supports the diagnosis of Diabetes Mellitus. Performed By: #### G LULS #### Point of Care testing , Glucose [Mass/Vol] 147 mg/dL Normal [facility] Comment on above: Result Comment: [place] om Glucose Reference Range is dependent on time and content of last meal. Glucose of more than 200 mg/dL in a nonstressed, ambulatory subject supports the diagnosis of Diabetes Mellitus. Performed By: #### G LULS #### Point of Care testing , Glucose Poct Glucometerson 0 12-11-2022 Glucose [Mass/Vol] 215 mg/dL Normal [facility] Comment on above: Result Comment: [place] om Glucose Reference Range is dependent on time and content of last meal. Glucose of more than 200 mg/dL in a nonstressed, ambulatory subject supports the diagnosis of Diabetes Mellitus. PERFORMED BY: [address] [place] [address] PATHOLOGIST GATE TECHNICIAN LILIANA WAKEFIELD M.D. Performed By: #### G LULS #### Point of Care testing , Commemt1 Glu2: Cleaned Meter Normal [facility] Comment on above: Result Comment: PERF ORMED BY: [facility] [address] [address] PATHOLOGIST GATE TECHNICIAN LILIANA WAKEFIELD M.D. Performed By: #### G LULS ####Point of Care testing, Glucose [Mass/Vol] 166 mg/dL Normal [facility] Comment on above: Result Comment: [place] om Glucose Reference Range is dependent on time and content of last meal. Glucose of more than 200 mg/dL in a nonstressed, ambulatory subject supports the diagnosis of Diabetes Mellitus. Performed By: #### G LULS ####Point of Care testing, Glucose [Mass/Vol] 118 mg/dL Normal [facility] Comment on above: Result Comment: [place] om Glucose Reference Range is dependent on time and content of last meal. Glucose of more than 200 mg/dL in a nonstressed, ambulatory subject supports the diagnosis of Diabetes Mellitus. PERFORMED BY: [address] [place] [address] PATHOLOGIST GATE TECHNICIAN LILIANA WAKEFIELD M.D. Performed By: #### G RAY ####Point of Care testing, Emmanuel 12-11-2022 L -- ---- Specimen: [id number] Received: 12/11/22 Status: JOAQUIN Oreillygarcia Num: [id number] Spec Type: Surgical Subm Dr: Adriana Cárdenas Jr, DO Tissues: A Joint/Knee (RT KNEE) Procedures: RENETTA, Gross/Micro L4, Decalcification ---- Age/ Patient Sex Location Account Attending Physician ---- Gia Riuz/Kristin [place] [id number] Adriana Cárdenas Jr, DO ---- SPEC NUM: [id number] RECD: 12/11/22 STATUS: JOAQUIN HERRERA NUM: [id number] UMM: 12/11/22- SUBM DR: Adriana Cárdenas Jr, DO ENTERED: 12/11/[address]: SPEC TYPE: Surgical DEPT: S ORDERED: HE, Gross/Micro L4, Decalcification ORDERED: HE, Gross/Micro L4, Decalcification Pathological Diagnosis Knee, right, bone and tissue: - Gross examination only. See the gross description Clinical Information DJD Gross Description Received in formalin labeled with the patient's name, date of and bone and tissue right knee is a 12.0 x 10.2 x 4.9 cm aggregate of gunter-white bone and yellow-crockett rubbery tissue. The bone fragments have smooth to granular gunter-crokcett articular surfaces with eburnation identified. The cut surface of the bone is yellow-gunter, trabecular. A gross photo is taken. Gross examination only. CPT Codes 98154 Gross Photo ---- ---- Specimen: [id number] Received: 12/11/22 Status: JOAQUIN Oreillygarcia Num: [id number] Spec Type: Surgical Subm Dr: Adriana Cárdenas Jr, DO Tissues: A Joint/Knee (RT KNEE) Procedures: HE, Gross/Micro L4, Decalcification ---- Patient: Gia Ruiz [id number] (Continued) ---- Signed (signature on file) Rolly Delvalle MD 12/17/22 1112 Normal [facility] XR knee RT 2Von 12-11-2022 XR knee RT 2V [facility] [place] [address] XRay Report Signed Patient: Gia uRiz MR#: [id number] : 1950 Acct:[id number] Age/Sex: 72 / F ADM Date: 12/11/22 Loc: [place] Room: Type: [facility] Attending Dr: Adriana Cárdenas Jr, DO Copies to: Adriana Cárdenas Jr, DO Ordering Provider: Adriana Cárdenas Jr, DO Date of Service: 12/11/22 XR/XR knee RT 2V: POST OP TOTAL 2 views RIGHT knee plain film COMPARISON: None HISTORY: Status post RIGHT total knee replacement ACUTE FINDINGS: None DEGENERATIVE CHANGE: Unremarkable SOFT TISSUE FINDINGS: Unremarkable postsurgical soft tissue changes. JOINT EFFUSION: None POSTOP CHANGES: No hardware failure loosening identified. BONE MINERALIZATION: Adequate XR/XR knee RT 2V IMPRESSION: No acute findings Impression dictated by: Lloyd Schuler M.D.12/11/2022 11:40 AM Dictation Location: [id number]-01 Transcribed By: MARICEL 12/11/22 1140 Dictated By: Lloyd Schuler DO 12/11/22 1135 Signed By: 12/11/22 1140 Normal [facility] XR tibia/fibula BIon 023 XR tibia/fibula BI [facility] Main [place] [id number] XRay Report Signed Patient: Gia Ruiz MR#: [id number] : 1950 Acct:[id number] Age/Sex: 72 / F ADM Date: 11/27/22 Loc: ICXD Room: Type: [facility] Attending Dr: Adriana Cárdensa Jr DO Copies to: Adriana Cárdenas Jr, DO Ordering Provider: Adriana Cárdenas Jr, DO Date of Service: 11/27/22 XR/XR tibia/fibula BI: PRE OP TOTAL TKA ([id number]) XR/XR femur BI: PRE OP TKA CLINICAL DATA: Preoperative planning for right knee replacement. BILATERAL FEMUR - 1 view COMPARISON: 05/05/2022 AP and lateral standing views of the lower legs were obtained using long cassettes. There is redemonstration of genu valgum deformity at the knees. There is mild tibiofemoral joint compartment narrowing and marginal spurring, greater laterally. There are no acute fractures or dislocation. The hip joint spaces are symmetric and there is no prominent hypertrophy. Slight levoscoliotic curvature and degenerative changes are present at the lower imaged lumbar spine. No soft tissue abnormalities are seen. 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 NO OTHER ACUTE FINDINGS INVOLVING THE UPPER LEGS. BILATERAL TIB-FIB - 1 view COMPARISON: 05/05/2022 AP standing view of the tibia and fibula were obtained. The bottom of the images is at the tibial plafond. No acute fractures or dislocation are noted. Genu valgum deformity is seen. There are no soft tissue abnormalities. IMPRESSION: NO ACUTE BONY FINDINGS. Impression dictated by: Deya Anguiano M.D.11/27/2022 4:38 PM Dictation Location: [place] [address] Transcribed By: [facility] 11/27/22 1638 Dictated By: Deya Anguiano MD 11/27/22 1632 Signed By: 11/27/22 1638 Normal [facility] A1C with Estimated Average Bindu campos 11-24-2022 Glucose [Mass/Vol] 126 mg/dL Normal [facility] Comment on above: Result Comment: PERF ORMED BY: [address] [place] [address] PATHOLOGIST GATE TECHNICIAN LILIANA WAKEFIELD M.D. Performed By: #### B MP, CBC, A1C WTH eA ####[address] [address] [facility] HbA1c (Bld) [Mass fraction] 6.0 % High 4.3-5.6 [facility] Comment on above: Result Comment: Incr eased risk for diabetes: 5.7 - 6.4 diabetes: >6.4 glycemic control for adults with diabetes: <7.0 Performed By: #### B MP, CBC, A1C WTH eA ####[address] [address] [facility] Basic Metabolic Panelon 11-15 Anion gap [Moles/Vol] 9.4 mmol/L Normal 6.0-15.0 [facility] Comment on above: Performed By: #### B MP, CBC, A1C WTH eA ####[address] [address] [facility] Calcium [Mass/Vol] 9.4 mg/dL Normal 8.6-10.3 [facility] Comment on above: Result Comment: PERF ORMED BY: [facility] [address] [place] [address] PATHOLOGIST GATE TECHNICIAN LILIANA WAKEFIELD M.D. Performed By: #### B MP, CBC, A1C WTH eA ####[address] [address] [facility] Chloride [Moles/Vol] 95 mmol/L Low 98-107 [facility] Comment on above: Performed By: #### B MP, CBC, A1C WTH eA ####[address] [address] [place] CO2 [Moles/Vol] 31.1 mmol/L High 21.0-31.0 [facility] Comment on above: Performed By: #### B MP, CBC, A1C WTH eA ####[address] Creatinine [Mass/Vol] 0.68 mg/dL Normal 0.60-1.20 [facility] Comment on above: Performed By: #### B MP, CBC, A1C WTH eA ####[place] [address] [place] GFR/1.73 sq M.predicted MDRD (S/P/Bld) [Vol rate/Area] mL/min/{1.73_m2} Normal [facility] Comment on above: Performed By: #### B MP, CBC, A1C WTH eA ####[address] Glucose [Mass/Vol] 94 mg/dL Normal 70-100 [facility] Comment on above: Result Comment: [place] Glucose Reference Range is dependent on time and content of last meal. Glucose of more than 200 mg/dL in a nonstressed, ambulatory subject supports the diagnosis of Diabetes Mellitus. ADA recommended reference range Performed By: #### B MP, CBC, A1C WTH eA ####[address] Potassium [Moles/Vol] 4.5 mmol/L Normal 3.5-5.1 [facility] Comment on above: Performed By: #### B MP, CBC, A1C WTH eA ####[place] [id number] [facility] Sodium [Moles/Vol] 131 mmol/L Low 136-145 [facility] Comment on above: Performed By: #### B MP, CBC, A1C WTH eA ####[place] [id number] [facility] Urea nitrogen [Mass/Vol] 18 mg/dL Normal 7-25 [facility] Comment on above: Performed By: #### B MP, CBC, A1C WTH eA ####[place] [address] [place] [address] [place] Basophils Auto (Bld) [#/Vol] Ordered By: Adriana Cárdenas on 11-24-2022 Basophils (Bld) [#/Vol] 0.1 10*3/uL 0.0-0.2 [facility] Basophils/100 WBC Auto (Bld) Ordered By: Adriana Cárdenas on 11-24-2022 Basophils/100 WBC (Bld) 1.3 % . [facility] Bilirubin Test strip Ql (U)O rdered By: Adriana Cárdenas on 11-24-2022 Bilirubin Ql (U) Negative Negative [facility] Calcium [Mass/volume] in Ser um or PlasmaOrdered By: Adriana Cárdenas on 11-24-2022 Calcium [Mass/Vol] 9.4 mg/dL 8.6-10.3 [facility] Carbon dioxide, total [Moles /volume] in Serum or PlasmaOrdered By: Adriana Cárdenas on 11-24-2022 CO2 [Moles/Vol] 31.1 mmol/L 21.0-31.0 [facility] Chloride [Moles/volume] in S soni or PlasmaOrdered By: Adriana Cárdenas on 11-24-2022 Chloride [Moles/Vol] 95 mmol/L 98-107 [facility] Color Auto (U)Ordered By: Dari[place] Cárdenas on 11-24-2022 Color (U) Yellow Yellow [facility] Complete Blood Count Auto Di ffon 11-24-2022 Basophils (Bld) [#/Vol] 0.1 10*3/uL Normal 0.0-0.2 [facility] Comment on above: Result Comment: PERF ORMED BY: [facility] [address] [place] [address] PATHOLOGIST GATE TECHNICIAN LILIANA WAKEFIELD M.D. Performed By: #### B MP, CBC, A1C WT eA ####[facility] [place] [id number] [facility] Basophils/100 WBC (Bld) 1.3 % Normal . [facility] Comment on above: Performed By: #### B MP, CBC, A1C WTH eA ####[address] Eosinophils (Bld) [#/Vol] 0.3 10*3/uL Normal 0.0-0.45 [facility] Comment on above: Performed By: #### B MP, CBC, A1C WTH eA ####[address] Eosinophils/100 WBC (Bld) 4.1 % Normal . [facility] Comment on above: Performed By: #### B MP, CBC, A1C WTH eA ####[address] Erythrocyte distribution width (RBC) [Ratio] 13.0 % Normal 11.9-15.3 [facility] Comment on above: Performed By: #### B MP, CBC, A1C WTH eA ####[address] Hematocrit (Bld) [Volume fraction] 36.8 % Normal 34.0-46.4 [facility] Comment on above: Performed By: #### B MP, CBC, A1C WTH eA ####[address] Hemoglobin (Bld) [Mass/Vol] 12.5 g/dL Normal 11.8-15.4 [facility] Comment on above: Performed By: #### B MP, CBC, A1C WTH eA ####[address] Lymphocytes (Bld) [#/Vol] 2.6 10*3/uL Normal 1.00-4.8 [facility] Comment on above: Performed By: #### B MP, CBC, A1C WTH eA ####[address] Lymphocytes/100 WBC (Bld) 34.2 % Normal . [facility] Comment on above: Performed By: #### B MP, CBC, A1C WTH eA ####[address] MCH (RBC) [Entitic mass] 29.8 pg Normal 24.7-34.3 [facility] Comment on above: Performed By: #### B MP, CBC, A1C WTH eA ####[address] MCV (RBC) [Entitic vol] 87.8 fL Normal 80-100 [facility] Comment on above: Performed By: #### B MP, CBC, A1C WTH eA ####[address] Mean Corpuscular HGB Conc 33.9 g/dL Normal 32.0-35.0 [facility] Comment on above: Performed By: #### B MP, CBC, A1C WTH eA ####[address] Monocytes (Bld) [#/Vol] 1.0 10*3/uL High 0.0-0.8 [facility] Comment on above: Performed By: #### B MP, CBC, A1C WTH eA ####[address] Monocytes/100 WBC (Bld) 12.4 % Normal . [facility] Comment on above: Performed By: #### B MP, CBC, A1C WTH eA ####[address] Neutrophils (Bld) [#/Vol] 3.7 10*3/uL Normal 1.8-7.7 [facility] Comment on above: Performed By: #### B MP, CBC, A1C WTH eA ####[address] Neutrophils/100 WBC (Bld) 48.0 % Normal . [facility] Comment on above: Performed By: #### B MP, CBC, A1C WTH eA ####[address] NRBC% 0.1 /100{WBC} Normal 0-0.5 [facility] Comment on above: Performed By: #### B MP, CBC, A1C WTH eA ####[place] [address] [place] [id number] [facility] Platelet mean volume (Bld) [Entitic vol] 6.9 fL Normal 6.3-10.7 [facility] Comment on above: Performed By: #### B MP, CBC, A1C WT eA ####[place] [address] [place] [address] [facility] Platelets (Bld) [#/Vol] 305 10*3/uL Normal 150-450 [facility] Comment on above: Performed By: #### B MP, CBC, A1C WT eA ####[place] [id number] [facility] RBC (Bld) [#/Vol] 4.19 10*6/uL Normal 3.60-5.00 [facility] Comment on above: Performed By: #### B MP, CBC, A1C WT eA ####[place] [address] [place] [id number] [facility] WBC (Bld) [#/Vol] 7.7 10*3/uL Normal 3.8-11.6 [facility] Comment on above: Performed By: #### B MP, CBC, [address] eA ####[place] [id number] [facility] Creatinine [Mass/volume] in Serum or PlasmaOrdered By: Adriana Cárdenas on 11-24-2022 Creatinine [Mass/Vol] 0.68 mg/dL 0.60-1.20 [facility] ECG 12 lead ECGon 11-24-2022 ECG 12 lead ECG [facility] [place] [address] Electrocardiograph Report Signed Patient: Gia Ruiz MR#: [id number] : 1950 Acct:[id number] Age/Sex: 72 / F ADM Date: 11/24/22 Loc: [place] Room: Type: [facility] Attending Dr: Adriana Cárdenas Jr, DO Ordering Provider: Adriana Cárdenas Jr, DO Date of Service: 11/24/2203/09/908 ECG/ECG 12 lead ECG: surgery 12/11 Copies to: Test Reason : Blood Pressure : / mmHG Vent. Rate : 064 BPM Atrial Rate : 064 BPM P-R Int : 170 ms QRS Dur : 088 ms QT Int : 414 ms P-R-T Axes : 056 040 049 degrees QTc Int : 427 ms Normal sinus rhythm Normal ECG No previous ECGs available Confirmed by NUHA JUARES MD ([id number]) on 11/25/2022 10:34:37 AM Referred By: JAY Electronically Signed By:NUHA JUARES MD Transcribed By: AMRITA Signed By Nuha Juares MD 0 11/25/22 1034 Normal [facility] Eosinophils Auto (Bld) [#/Vo l]Ordered By: Adriana Cárdenas on 11-24-2022 Eosinophils (Bld) [#/Vol] 0.3 10*3/uL 0.0-0.45 [facility] Eosinophils/100 WBC Auto (Bl d)Ordered By: Adriana Cárdenas on 11-24-2022 Eosinophils/100 WBC (Bld) 4.1 % . [facility] Erythrocyte distribution wid th Auto (RBC) [Ratio]Ordered By: Adriana Cárdenas on 11-24-2022 Erythrocyte distribution width (RBC) [Ratio] 13.0 % 11.9-15.3 [facility] Glucose [Mass/volume] in Ser um or PlasmaOrdered By: Adriana Cárdenas on 11-24-2022 Glucose [Mass/Vol] 94 mg/dL 70-100 [facility] Comment on above: ADA recommended refe rence rangeRandom Glucose Reference Range is dependent on time and content of last meal. Glucose of more than 200 mg/dL in a nonstressed, ambulatory subject supports the diagnosis of Diabetes Mellitus. Glucose mean value [Mass/vol ume] in Blood Estimated from glycated hemoglobinOrdered By: Adriana Cárdenas on 11-24-2022 Average glucose Estimated from glycated hemoglobin (Bld) [Mass/Vol] 126 mg/dL [facility] Hematocrit Auto (Bld) [Volum e fraction]Ordered By: Adriana Cárdenas on 11-24-2022 Hematocrit (Bld) [Volume fraction] 36.8 % 34.0-46.4 [facility] Hemoglobin A1c percentageOrd ered By: Adriana Cárdenas on 11-24-2022 HbA1c (Bld) [Mass fraction] 6.0 % 4.3-5.6 [facility] Comment on above: Increased risk for d iabetes: 5.7 - 6.4diabetes: >6.4glycemic control for adults with diabetes: <7.0 Hemoglobin [Mass/volume] in BloodOrdered By: Adriana Cárdenas on 11-24-2022 Hemoglobin (Bld) [Mass/Vol] 12.5 g/dL 11.8-15.4 [facility] Ketones Auto test strip (U) [Mass/Vol]Ordered By: Adriana Cárdenas on 11-24-2022 Ketones (U) [Mass/Vol] Negative Negative [facility] Leukocytes [#/volume] correc lisa for nucleated erythrocytes in Blood by Automated counOrdered By: Adriana Cárdenas on 11-24-2022 WBC corrected for nucl RBC Auto (Bld) [#/Vol] 7.7 10*3/uL 3.8-11.6 [facility] Lymphocytes Auto (Bld) [#/Vo l]Ordered By: Adriana Cárdenas on 11-24-2022 Lymphocytes (Bld) [#/Vol] 2.6 10*3/uL 1.00-4.8 [facility] Lymphocytes/100 WBC Auto (Bl d)Ordered By: Adriana Cárdenas on 11-24-2022 Lymphocytes/100 WBC (Bld) 34.2 % . [facility] MCH Auto (RBC) [Entitic mass ]Ordered By: Adriana Cárdenas on 11-24-2022 MCH (RBC) [Entitic mass] 29.8 pg 24.7-34.3 [facility] MCHC Auto (RBC) [Mass/Vol]Or dered By: Adriana Cárdenas on 11-24-2022 MCHC (RBC) [Mass/Vol] 33.9 g/dL 32.0-35.0 [facility] MCV Auto (RBC) [Entitic vol] Ordered By: Adriana Cárdenas on 11-24-2022 MCV (RBC) [Entitic vol] 87.8 fL 80-100 [facility] Monocytes Auto (Bld) [#/Vol] Ordered By: Adriana Cárdenas on 11-24-2022 Monocytes (Bld) [#/Vol] 1.0 10*3/uL 0.0-0.8 [facility] Monocytes/100 WBC Auto (Bld) Ordered By: Adriana Cárdenas on 11-24-2022 Monocytes/100 WBC (Bld) 12.4 % . [facility] Neutrophils Auto (Bld) [#/Vo l]Ordered By: Adriana Cárdenas on 11-24-2022 Neutrophils (Bld) [#/Vol] 3.7 10*3/uL 1.8-7.7 [facility] Neutrophils/100 WBC Auto (Bl d)Ordered By: Adriana Cárdenas on 11-24-2022 Neutrophils/100 WBC (Bld) 48.0 % . [facility] Nitrite Test strip Ql (U)Ord ered By: Adriana Cárdenas on 11-24-2022 Nitrite Ql (U) Negative Negative [facility] No Panel InformationOrdered By: Adriana Cárdenas on 11-24-2022 Estimated GFR (CKD-EPI) > 60.0 mL/Min [facility] Creatinine Clearance (Chem N/A [facility] Nucleated erythrocytes [Pres ence] in Blood by Automated countOrdered By: Adriana Cárdenas on 11-24-2022 Nucleated RBC Auto Ql (Bld) 0.1 /100{WBC} 0-0.5 [facility] PST Type and Screenon 2022 ABO and Rh group Nom (Bld) Blood group O Rh(D) positive Normal [facility] Comment on above: Order Comment: Date of Surgery: 20221211 # of PRBC units on hold?: 2 Result Comment: PERF ORMED BY: [facility] [address] [place] [address] PATHOLOGIST GATE TECHNICIAN LILIANA WAKEFIELD M.D. Order Comment: Date of Surgery: 20221211 # of PRBC units on hold?: 2 Platelet mean volume Auto (B ld) [Entitic vol]Ordered By: Adriana Cárdenas on 11-24-2022 Platelet mean volume (Bld) [Entitic vol] 6.9 fL 6.3-10.7 [facility] Platelets Auto (Bld) [#/Vol] Ordered By: Adriana Cárdenas on 11-24-2022 Platelets (Bld) [#/Vol] 305 10*3/uL 150-450 [facility] Potassium [Moles/volume] in Serum or PlasmaOrdered By: Adriana Cárdenas on 11-24-2022 Potassium [Moles/Vol] 4.5 mmol/L 3.5-5.1 [facility] Protein Auto test strip (U) [Mass/Vol]Ordered By: Adriana Cárdenas on 11-24-2022 Protein (U) [Mass/Vol] Negative Negative [facility] [facility] RBC Auto (Bld) [#/Vol]Ordere d By: Adriana Cárdenas on 11-24-2022 RBC (Bld) [#/Vol] 4.19 10*6/uL 3.60-5.00 [facility] Serum or plasma anion gap de terminationOrdered By: Adriana Cárdenas on 11-24-2022 Anion gap [Moles/Vol] 9.4 mmol/L 6.0-15.0 [facility] Sodium [Moles/volume] in Ser um or PlasmaOrdered By: Adriana Cárdenas on 11-24-2022 Sodium [Moles/Vol] 131 mmol/L 136-145 [facility] Specific gravity Auto test s trip (U) [Rel density]Ordered By: Adriana Cárdenas on 11-24-2022 Specific gravity (U) [Rel density] 1.006 1.001-1.030 [facility] Urea nitrogen [Mass/volume] in Serum or PlasmaOrdered By: Adriana Cárdenas on 11-24-2022 Urea nitrogen [Mass/Vol] 18 mg/dL 7-25 [facility] Urinalysison 11-24-2022 Appearance (U) Clear Normal Clear [facility] Comment on above: Order Comment: Date of Surgery: 20221211 # of PRBC units on hold?: 2 Performed By: #### U A ####[facility] [id number] [place] [address] [facility] Bilirubin,Urine Negative Normal Negative [facility] Comment on above: Order Comment: Date of Surgery: 20221211 # of PRBC units on hold?: 2 Performed By: #### U A ####[id number] [place] [address] [facility] Color (U) Yellow Normal Yellow [facility] Comment on above: Order Comment: Date of Surgery: 20221211 # of PRBC units on hold?: 2 Performed By: #### U A ####[address] [address] [facility] Glucose Ql (U) Normal Normal Normal [facility] Comment on above: Order Comment: Date of Surgery: 20221211 # of PRBC units on hold?: 2 Performed By: #### U A ####[address] [address] [facility] Ketones Ql (U) Negative Normal Negative [facility] Comment on above: Order Comment: Date of Surgery: 20221211 # of PRBC units on hold?: 2 Performed By: #### U A ####[address] [address] [facility] Leukocyte esterase Test strip Ql (U) Negative Normal Negative [facility] Comment on above: Order Comment: Date of Surgery: 20221211 # of PRBC units on hold?: 2 Performed By: #### U A ####[address] [address] [facility] Nitrite,Urine Negative Normal Negative [facility] Comment on above: Order Comment: Date of Surgery: 20221211 # of PRBC units on hold?: 2 Performed By: #### U A ####[address] [address] [facility] Occult Blood,Urine Negative Normal Negative [facility] Comment on above: Order Comment: Date of Surgery: 20221211 # of PRBC units on hold?: 2 Result Comment: PERF ORMED BY: [facility] [address] [place], [place] [id number] PATHOLOGIST GATE TECHNICIAN LILIANA WAKEFIELD M.D. Performed By: #### U A ####[address] [address] [facility] pH (U) 7.0 [pH] Normal 5.0-9.0 [facility] Comment on above: Order Comment: Date of Surgery: 20221211 # of PRBC units on hold?: 2 Performed By: #### U A ####[id number] [facility] Protein,Urine Negative Normal Negative [facility] Comment on above: Order Comment: Date of Surgery: 20221211 # of PRBC units on hold?: 2 Performed By: #### U A ####[id number] [facility] Specificy [place],Urine 1.006 Normal 1.001-1.030 [facility] Comment on above: Order Comment: Date of Surgery: 20221211 # of PRBC units on hold?: 2 Performed By: #### U A ####[id number] [facility] Urobilinogen,Urine Normal Normal Normal [facility] Comment on above: Order Comment: Date of Surgery: 20221211 # of PRBC units on hold?: 2 Performed By: #### U A ####[id number] [facility] Urine clarity by refractomet ry automatedOrdered By: Adriana Cárdenas on 11-24-2022 Clarity Refractometry automated (U) Clear Clear [facility] Urine glucose measurement by automated test strip (mass/volume)Ordered By: Adriana Cárdenas on 11-24-2022 Glucose Auto test strip (U) [Mass/Vol] Normal mg/dL Normal [facility] Urine hemoglobin detection b y automated test stripOrdered By: Adriana Cárdenas on 11-24-2022 Hemoglobin Auto test strip Ql (U) Negative Negative [facility] Urine leukocyte esterase det ection by automated test stripOrdered By: Adriana Cárdenas on 11-24-2022 Leukocyte esterase Auto test strip Ql (U) Negative Negative [facility] Urobilinogen Auto test strip (U) [Mass/Vol]Ordered By: Adriana Cárdenas on 11-24-2022 Urobilinogen (U) [Mass/Vol] Normal mg/dL Normal [facility] WBC Auto (Bld) [#/Vol]Ordere d By: Adriana Cárdenas on 11-24-2022 WBC (Bld) [#/Vol] 7.7 10*3/uL 3.8-11.6 [facility] pH Auto test strip (U)Ordere d By: Adriana Cárdenas on 11-24-2022 pH (U) 7.0 [pH] 5.0-9.0 [facility] CT ABD/PELVIS WO CONon 08-19 CT ABD/PELVIS WO CON EXAMINATION: CT ABD/PELVIS WO CON HISTORY: Urethral stricture ; left kidney stone COMPARISON: XR KUB 07/31/2022 TECHNIQUE: Axial, Coronal, and Sagittal images were obtained without and/or with IV contrast as indicated by examination type. Dose reduction techniques were achieved by using automated exposure control and/or adjustment of mA and/or kV according to patient size and/or use of iterative reconstruction technique. FINDINGS: LUNG BASES: No visible pulmonary or pleural disease. LIVER: No enlargement, atrophy, suspicious density, or significant focal lesion. BILIARY: 2 or 3 small stones within the neck of the gallbladder. No abnormal duct dilation. PANCREAS: No lesion, fluid collection, or abnormal duct dilatation. SPLEEN: No enlargement or focal lesion. ADRENALS: No mass or enlargement. KIDNEYS: 2 nonobstructing 3 mm stones within left kidney. Unremarkable right kidney and bilateral ureters. BOWEL/MESENTERY: Large hiatal hernia. No visible mass, obstruction, or bowel wall thickening. AORTA/VASCULAR: No aneurysm or dissection. RETROPERITONEUM: No mass or adenopathy. LYMPH NODES: No adenopathy. URINARY BLADDER: No visible focal wall thickening, lesion, or calculus. PELVIC ORGANS: No visible mass. Pelvic organs appropriate for patient age. ABDOMINAL WALL: Small fat filled umbilical hernia without strangulation. BONES: Multilevel moderate marked degenerative disc disease of lumbar spine. OTHER: Negative. IMPRESSION: 1. Nonobstructing left nephrolithiasis. 2. Cholelithiasis. 3.Degenerative disc disease of lumbar spine. Electronically authenticated by: NICOLE BONE Date: 2022-08-19 11:00 Normal [facility] XR DEXA BONE DENSITYon 08-19 XR DEXA BONE DENSITY EXAMINATION: XR DEX A BONE DENSITY, 08/19/2022 8:33 AM EDT HISTORY: Screening for osteoporosis COMPARISON: DEXA bone densitometry 11/16/2017 TECHNIQUE: Dual-energy X-ray absorptiometry (DEXA) bone density study performed for the axial skeleton. FINDINGS: SPINE ANALYSIS: Average bone mineral density is 1.314 g/cm2. T-score (standard deviation relative to young adult mean): 1.1 . +1.7% change since prior study. HIP ANALYSIS: Lowest bone mineral density is within the right femoral neck, 0.745 g/cm2. T-score (standard deviation relative to young adult mean): -2.1 . -10.1% change since prior study. IMPRESSION: World [employer] Classification: Osteopenia - Moderate Fracture Risk Electronically authenticated by: NICOLE BONE Date: 2022-08-19 09:19 Normal [facility] PAP ACOG PANEL 2: 30 to 65on 08-18-2022 . . Normal [facility] Comment on above: Performed By: #### [id number] #### [facility] [address] [place] [address] Dr. Sol Friend Age Gdln ACOG Testing Comment Normal [facility] Comment on above: Result Comment: <21 or >65 or no age provided Performed By: #### [id number] #### [facility] [address] [place] [address] Dr. Sol Friend DIAGNOSIS: Comment [facility] Comment on above: Result Comment: NEGA TIVE FOR INTRAEPITHELIAL LESION OR MALIGNANCY. CELLULAR CHANGES ASSOCIATED WITH ATROPHY AND INFLAMMATION ARE PRESENT. Performed By: #### [id number] #### [facility] [address] [place] [address] Dr. Sol Friend Methodology: Comment Normal [facility] Comment on above: Result Comment: This liquid based ThinPrep(R) pap test was screened with the use of an image guided system. Performed By: #### [id number] #### [facility] [address] [place] [address] Dr. Sol Friend Note: Comment [facility] Comment on above: Result Comment: The Pap smear is a screening test designed to aid in the detection of premalignant and malignant conditions of the uterine cervix. It is not a diagnostic procedure and should not be used as the sole means of detecting cervical cancer. Both false-positive and false-negative reports do occur. . Performed By: #### [id number] #### [facility] [address] [address] [address] Sol Friend Performed by: Comment Normal [facility] Comment on above: Result Comment: Aniket Covington, Sales Agent (ASCP) Performed By: #### 4 [id number] #### [facility] [address] [address] [address] Sol Friend Specimen adequacy: Comment Normal [facility] Comment on above: Result Comment: Sati sfactory for evaluation. Endocervical component may not be distinguished in cases of atrophy. Areas of partially obscuring inflammatory exudate are present. Performed By: #### 4 [id number] #### [facility] [address] [address] [address] Sol Friend XR KUB 1 VIEWon 07-31-2022 XR KUB 1 VIEW EXAMINATION: XR KUB 1 VIEW HISTORY: Kidney stone ; left kidney stone COMPARISON: Ultrasound kidneys 07/22/2022 FINDINGS: KIDNEY/URETER - RIGHT: No visible renal or ureteral calcifications. KIDNEY/URETER - LEFT: Small calcified calcifications projecting over region of left kidney which may represent kidney stone. PELVIS: No visible ureteral stones. Metallic foreign body projecting over lower midline pelvis. BOWEL: No abnormal dilation or deviation. BONES: No acute abnormality. OTHER: Negative. No abnormal gaseous collections. IMPRESSION: 1. Left nephrolithiasis, consistent with recent ultrasound findings. 2. Normal bowel gas pattern. 3. Metallic foreign body projecting over lower pelvis uncertain etiology; this may be on the skin surface or clothing. Electronically authenticated by: NICOLE BONE Date: 2022-07-31 12:15 Normal [facility] US KIDNEYSon 07-22-2022 US KIDNEYS EXAM: US KIDNEYS HISTORY: . Microscopic hematuria . COMPARISON: None. TECHNIQUE: Grayscale and color imaging was performed FINDINGS: Scanning of the filled bladder demonstrates no masses. Bladder wall is thickened in a circumferential fashion measuring 7 mm. Prevoid volume was 458 cc and post void residual was 257 cc. Right kidney measures 11.2 x 5.9 x 5 cm. Color-flow is noted. No solid renal cortical masses or hydronephrosis is noted. Left kidney measures 11.2 x 5.1 x 4.9 cm. Color-flow is noted. There is a 1.3 x 1.1 cm cyst involving the upper pole of the left kidney. There is a 7 mm nonobstructing calculus involving the mid upper pole of the left kidney. No hydronephrosis is noted. IMPRESSION: 1 normal-appearing right kidney. 2. 1.1 cm cyst involving the left kidney. There is also a 7 mm nonobstructing left renal calculus. No hydronephrosis. 3. No masses are noted within the bladder. Bladder wall is thickened measuring 7 mm. Tiny is could be due to incomplete distention, cystitis, or less likely neoplasm. Clinical correlation is suggested. 4. Post void residual was 257 cc for a post void residual of approximately 56%. Electronically authenticated by: DOMINICK SONI Date: 2022-07-22 09:20 Normal [facility] US BLADDERon 06-12-2022 US BLADDER EXAM: US BLADDER HISTORY: Blood in urine COMPARISON: None. TECHNIQUE: Multiple sonographic images of the urinary bladder were obtained, supplemented with Doppler. FINDINGS: The urinary bladder is initially well distended. The bladder michaud are smooth without evidence of a focal mass or calcification. The bladder wall is borderline thickened diffusely. Bilateral ureteral jets are visualized. The prevoid volume is 402 mL. The patient voided spontaneously. The post void volume was 241 mL. IMPRESSION: The urinary bladder is initially well distended and the bladder michaud are smooth. There may be slight diffuse thickening of the bladder wall. No other focal abnormality is identified. The post void volume is 241 mL, which is significantly abnormal. Electronically authenticated by: NOLAN JAY Date: 2022-06-12 14:44 Normal [facility] CULTURE URINEon 06-05-2022 CULTURE URINE Culture Observations : NO GROWTH. Normal [facility] Comment on above: Performed By: #### U RCX ####[facility] [address] [id number] Friend UA (CLEAN/CATCH) MICROSCOPIC IF INDICATEon 06-05-2022 Bilirubin Ql (U) Negative Normal NEGATIVE [facility] Comment on above: Performed By: #### U MILAN HINTON ####[facility] [address] [place], [place] [address]CuCarmen Friend Clarity (U) CLEAR Normal CLEAR [facility] Comment on above: Performed By: #### MILAN PULLIAM ####[facility] [address] [address]Dr[address] Sol Friend Color (U) LT. YELLOW Normal YELLOW [facility] Comment on above: Performed By: #### MILAN PULLIAM ####[facility] [address] [address]Dr[address] Sol Friend Glucose Ql (U) Negative Normal NEGATIVE [facility] Comment on above: Performed By: #### MILAN PULLIAM ####[facility] [address] [address]Dr[address] Sol Friend Hemoglobin Ql (U) LARGE Abnormal NEGATIVE [facility] Comment on above: Performed By: #### MILAN PULLIAM ####[facility] [address] [place], [place] [address]Dr. Shakilajackie Friend Ketones Ql (U) Negative Normal NEGATIVE [facility] Comment on above: Performed By: #### MILAN PULLIAM ####[facility] [address] [place], [place] [address]Dr. Sol Friend LEUKOCYTES Negative Normal NEGATIVE The [facility] Comment on above: Performed By: #### MILAN PULLIAM ####[facility] [address] [address]Dr[address] Sol Friend Nitrite Ql (U) Negative Normal NEGATIVE [facility] Comment on above: Performed By: #### MILAN PULLIAM ####[facility] [address] [place], [place] [address]Dr. Sol Friend pH (U) 7.0 [pH] Normal 5-9 [facility] Comment on above: Performed By: #### MILAN PULLIAM ####[facility] [address] [place], [place] [address]Dr. Sol Friend SPEC GRAVITY <=1.005 Abnormal 1.005-<=1.025 [facility] Comment on above: Performed By: #### MILAN PULLIAM ####[facility] [address] [address]Dr[address] Sol Friend UA PROTEIN Negative Normal NEGATIVE/ TRACE [facility] Comment on above: Performed By: #### MILAN PULLIAM ####[facility] [address] [address]Dr[address] Sol Friend UR MICRO IND INDICATED Normal [facility] Comment on above: Performed By: #### MILAN PULLIAM ####[facility] [address] [address] Sol Friend Urobilinogen Qn (U) 0.2 {Darrick'U}/dL Normal 0.2 - 1. 0 [facility] Comment on above: Performed By: #### MILAN PULLIAM ####[facility] [address] [address]Dr[address] Sol Friend URINE MICROSCOPIC ONLYon BACTERIA NONE SEEN Normal NONE SEEN The [facility] Comment on above: Performed By: #### MILAN PULLIAM ####[facility] [address] [address] Sol Friend Bacteria identified Cx Nom (U) CX ALREADY ORDERED Normal [facility] Comment on above: Performed By: #### MILAN PULLIAM ####[facility] [address] [address]Dr[address] Sol Friend CAST NONE SEEN Normal NONE SEEN The [facility] Comment on above: Performed By: #### MILAN PULLIAM ####[facility] [address] [address] Sol Friend Crystals LM Nom (Urine sed) NONE SEEN Normal NONE SEEN The [facility] Comment on above: Performed By: #### MILAN PULLIAM ####[facility] [address] [address] Sol Friend Epithelial cells LM Ql (Urine sed) RARE Normal NONE SEEN /RARE [facility] Comment on above: Performed By: #### MILAN PULLIAM ####[facility] [address] [id number][address] Sol Friend MUCOUS NONE SEEN Normal NONE SEEN The [facility] Comment on above: Performed By: #### MILAN PULLIAM ####[facility] [address] [address] Sol Friend RBC 2-5 Abnormal 0-2 [facility] Comment on above: Performed By: #### MILAN PULLIAM ####[facility] [address] [address]Dr[address] Sol Friend WBC NONE SEEN Normal NONE SEEN The [facility] Comment on above: Performed By: #### MILAN PULLIAM ####[facility] [address] [address]Dr[address] Sol Friend CULTURE URINEon 05-22-2022 CULTURE URINE Isolate 1 Klebsiella pneumoniae >100,000 cfu/mL of ORGANISM 1 Klebsiella pneumoniae ANTIBIOTIC M.I.C RX STATUS Ampicillin 16 R F Ampicillin/Sulbactam 4 S F Piperacillin/Tazobacta m 8 S F Cefazolin <=4 S F Ceftazidime <=1 S F Ceftriaxone <=1 S F Ertapenem <=0.5 S F Imipenem <=0.25 S F Amikacin <=2 S F Gentamicin <=1 S F Tobramycin <=1 S F Ciprofloxacin <=0.25 S F Levofloxacin 1 S F Nitrofurantoin 128 R F Trimethoprim/Sulfameth oxazole <=20 S F Normal The [facility] Comment on above: Performed By: #### U RCX ####[facility] [address] [address] Sol Friend UA RANDOMon 05-20-2022 Bilirubin Ql (U) Negative Normal NEGATIVE The [facility] Comment on above: Performed By: #### U A #### [facility] [address] [place] [address] Dr. Sol Friend Clarity (U) CLEAR Normal CLEAR [facility] Comment on above: Performed By: #### U A #### [facility] [address] [place] [address] Dr. Sol Friend Color (U) LT. YELLOW Normal YELLOW [facility] Comment on above: Performed By: #### U A #### [facility] [address] [place] [address] Dr. Sol Friend Glucose Ql (U) Negative Normal NEGATIVE [facility] Comment on above: Performed By: #### U A #### [facility] [address] [place] [address] Dr. Sol Friend Hemoglobin Ql (U) Negative Normal NEGATIVE [facility] Comment on above: Performed By: #### U A #### [facility] [address] [place] [address] Dr. Sol Friend Ketones Ql (U) Negative Normal NEGATIVE [facility] Comment on above: Performed By: #### U A #### [facility] [address] [place] [address] Dr. Sol Friend LEUKOCYTES Negative Normal NEGATIVE [facility] Comment on above: Performed By: #### U A #### [facility] [address] [place] [address] Dr. Sol Friend Nitrite Ql (U) Positive Abnormal NEGATIVE [facility] Comment on above: Performed By: #### U A #### [facility] [address] [place] [address] Dr. Sol Friend pH (U) 6.5 [pH] Normal 5-9 [facility] Comment on above: Performed By: #### U A #### [facility] [address] [place] [address] Dr. Sol Friend SPEC GRAVITY <=1.005 Abnormal 1.005-<=1.025 [facility] Comment on above: Performed By: #### U A #### [facility] [address] [place] [address] Dr. Sol Friend UA PROTEIN Negative Normal NEGATIVE/ TRACE [facility] Comment on above: Performed By: #### U A #### [facility] [address] [place] [address] Dr. Sol Friend Urobilinogen Qn (U) 0.2 {Darrick'U}/dL Normal 0.2 - 1. 0 [facility] Comment on above: Performed By: #### U A #### [facility] [address] [address] [address] Sol Friend MG MAMM SCREEN 3D CALOS CADon 05-16-2022 MG MAMM SCREEN 3D CALOS CAD Patient: GIA RUIZ Exam Date: 05/16/2022 : 1950 Gender:F Ordering : DR ROBERT FERREIRA . Admission #: [id number] Family : Order #: [id number] CLICK HERE TO VIEW EXAM RADIOLOGY REPORT PROCEDURE: MAMMOGRAM SCREENING 3D BILATERAL CAD COMPARISON: MG MAMM SCREEN CALOS W CAD, 04/23/2020. MG MAMM SCREEN 3D CALOS CAD, 05/07/2021. INDICATIONS: Screening mammography Calculator Name NCI Breast Cancer Risk Assessment Tool 5 Year Breast Cancer Risk 1.90% Lifetime Breast Cancer Risk 5.40% Personal Breast Cancer No Personal Ovarian Cancer No Treatments RADIATION/THYROIDECTOM Y Family Cancers Aunt-maternal with breast cancer at age 50; Aunt-maternal with breast cancer at age 45; Grandmother-maternal with breast cancer at age 46; Mother with lung cancer at age 80; Brother with prostate cancer at age 70. LOCATION: [facility] BREAST COMPOSITION: Almost entirely fatty. FINDINGS: DIAGNOSTIC CATEGORY 1--NEGATIVE. NO CHANGE FROM COMPARISON ASSESSMENT. Scattered benign-appearing calcifications are present. RIGHT BREAST: No significant suspicious finding. LEFT BREAST: No significant suspicious finding. RECOMMENDATIONS: ROUTINE MAMMOGRAM AND CLINICAL EVALUATION IN 12 MONTHS. PLEASE NOTE: A NORMAL MAMMOGRAM DOES NOT EXCLUDE THE POSSIBILITY OF BREAST CANCER. A CLINICALLY SUSPICIOUS PALPABLE LUMP SHOULD BE BIOPSIED. Dictated by: Dominick Swanson MD on 05/16/2022 at 11:42 Approved by: Dominick Swanson MD on 05/16/2022 at 11:44 Normal [facility] Automated erythrocytes count in urine sediment (number/area)Ordered By: Adriana Cárdenas on 05-05-2022 RBC Auto (Urine sed) [#/Area] 0-1 [HPF] 0-4 [facility] Automated leukocytes count i n urine sediment (number/area)Ordered By: Adriana Cárdenas on 05-05-2022 WBC Auto (Urine sed) [#/Area] Innumerable [HPF] 0-4 [facility] Basophils Auto (Bld) [#/Vol] Ordered By: Adriana Cárdenas on 05-05-2022 Basophils (Bld) [#/Vol] 0.1 10*3/uL 0.0-0.2 [facility] Basophils/100 WBC Auto (Bld) Ordered By: Adriana Cárdenas on 05-05-2022 Basophils/100 WBC (Bld) 1.1 % . [facility] Bilirubin Test strip Ql (U)O rdered By: Adriana Cárdenas on 05-05-2022 Bilirubin Ql (U) Negative Negative [facility] Color Auto (U)Ordered By: Darien Cárdenas on 05-05-2022 Color (U) Yellow Yellow [facility] Creatinine and Glomerular fi ltration rate.predicted panel (S/P/Bld)Ordered By: Adriana Cárdenas on 05-05-2022 Creatinine [Mass/Vol] 0.71 mg/dL 0.44-1.03 Fir [facility] Eosinophils Auto (Bld) [#/Vo l]Ordered By: Adriana Cárdenas on 05-05-2022 Eosinophils (Bld) [#/Vol] 0.2 10*3/uL 0.0-0.45 [facility] Eosinophils/100 WBC Auto (Bl d)Ordered By: Adriana Cárdenas on 05-05-2022 Eosinophils/100 WBC (Bld) 3.1 % . [facility] Erythrocyte distribution wid th Auto (RBC) [Ratio]Ordered By: Adriana Cárdenas on 05-05-2022 Erythrocyte distribution width (RBC) [Ratio] 13.8 % 11.9-15.3 [facility] Estimated glomerular filtrat ion rate (GFR) non- AmericanOrdered By: Adriana Cárdenas on 05-05-2022 GFR/1.73 sq M.predicted among non-blacks MDRD (S/P/Bld) [Vol rate/Area] > 60 mL/Min [facility] Glucose mean value [Mass/vol ume] in Blood Estimated from glycated hemoglobinOrdered By: Adriana Cárdenas on 05-05-2022 Average glucose Estimated from glycated hemoglobin (Bld) [Mass/Vol] 120 mg/dL [facility] Hematocrit Auto (Bld) [Volum e fraction]Ordered By: Adriana Cárdenas on 05-05-2022 Hematocrit (Bld) [Volume fraction] 37.1 % 34.0-46.4 [facility] Hemoglobin A1c percentageOrd ered By: Adriana Cárdenas on 05-05-2022 HbA1c (Bld) [Mass fraction] 5.8 % 4.3-5.6 [facility] Comment on above: Increased risk for d iabetes: 5.7 - 6.4diabetes: >6.4glycemic control for adults with diabetes: <7.0 Hemoglobin [Mass/volume] in BloodOrdered By: Adriana Cárdenas on 05-05-2022 Hemoglobin (Bld) [Mass/Vol] 12.3 g/dL 11.8-15.4 [facility] Ketones Auto test strip (U) [Mass/Vol]Ordered By: Adriana Cárdenas on 05-05-2022 Ketones (U) [Mass/Vol] Negative Negative [facility] Laboratory - UrinalysisOrder ed By: Adriana Cárdenas on 05-05-2022 Hyaline casts LM Ql (Urine sed) 0-8 [LPF] 0-8 [facility] Leukocytes [#/volume] correc lisa for nucleated erythrocytes in Blood by Automated counOrdered By: Adriana Cárdenas on 05-05-2022 WBC corrected for nucl RBC Auto (Bld) [#/Vol] 7.8 10*3/uL 3.8-11.6 [facility] Lymphocytes Auto (Bld) [#/Vo l]Ordered By: Adriana Cárdenas on 05-05-2022 Lymphocytes (Bld) [#/Vol] 2.7 10*3/uL 1.00-4.8 [facility] Lymphocytes/100 WBC Auto (Bl d)Ordered By: Adriana Cárdenas on 05-05-2022 Lymphocytes/100 WBC (Bld) 34.2 % . [facility] MCH Auto (RBC) [Entitic mass ]Ordered By: Adriana Cárdenas on 05-05-2022 MCH (RBC) [Entitic mass] 28.8 pg 24.7-34.3 [facility] MCHC Auto (RBC) [Mass/Vol]Or dered By: Adriana Cárdenas on 05-05-2022 MCHC (RBC) [Mass/Vol] 33.2 g/dL 32.0-35.0 [facility] MCV Auto (RBC) [Entitic vol] Ordered By: Adriana Cárdenas on 05-05-2022 MCV (RBC) [Entitic vol] 86.5 fL 80-100 [facility] Monocytes Auto (Bld) [#/Vol] Ordered By: Adriana Cárdenas on 05-05-2022 Monocytes (Bld) [#/Vol] 0.8 10*3/uL 0.0-0.8 [facility] Monocytes/100 WBC Auto (Bld) Ordered By: Adriana Cárdenas on 05-05-2022 Monocytes/100 WBC (Bld) 9.9 % . [facility] Neutrophils Auto (Bld) [#/Vo l]Ordered By: Adriana Cárdenas on 05-05-2022 Neutrophils (Bld) [#/Vol] 4.0 10*3/uL 1.8-7.7 [facility] Neutrophils/100 WBC Auto (Bl d)Ordered By: Adriana Cárdenas on 05-05-2022 Neutrophils/100 WBC (Bld) 51.7 % . [facility] Nitrite Test strip Ql (U)Ord ered By: Adriana Cárdenas on 05-05-2022 Nitrite Ql (U) Positive Negative [facility] No Panel InformationOrdered By: Adriana Cárdenas on 05-05-2022 Estimated GFR () > 60 mL/Min [facility] Comment on above: GFR estimated refere nce range: According to KDOQI guidelines, <60 ml/min/1.73m2 is sufficient to diagnose a patient with chronic kidney disease. Pharmacy Creatinine Clearance (Chem N/A [facility] Nucleated erythrocytes [Pres ence] in Blood by Automated countOrdered By: Adriana Cárdenas on 05-05-2022 Nucleated RBC Auto Ql (Bld) 0.1 /100{WBC} 0-0.5 [facility] Platelet mean volume Auto (B ld) [Entitic vol]Ordered By: Adriana Cárdenas on 05-05-2022 Platelet mean volume (Bld) [Entitic vol] 6.7 fL 6.3-10.7 [facility] Platelets Auto (Bld) [#/Vol] Ordered By: Adriana Cárdenas on 05-05-2022 Platelets (Bld) [#/Vol] 308 10*3/uL 150-450 [facility] Protein Auto test strip (U) [Mass/Vol]Ordered By: Adriana Cárdenas on 05-05-2022 Protein (U) [Mass/Vol] Negative Negative [facility] RBC Auto (Bld) [#/Vol]Ordere d By: Adriana Cárdenas on 05-05-2022 RBC (Bld) [#/Vol] 4.29 10*6/uL 3.60-5.00 [facility] Serum or plasma anion gap de terminationOrdered By: Adriana Cárdenas on 05-05-2022 Anion gap [Moles/Vol] 11.9 mmol/L 6.0-15.0 [facility] Serum or plasma calcium loretta urement (mass/volume)Ordered By: Adriana Cárdenas on 05-05-2022 Calcium [Mass/Vol] 9.1 mg/dL 8.2-10.2 [facility] Serum or plasma chloride roseanne surement (moles/volume)Ordered By: Adriana Cárdenas on 05-05-2022 Chloride [Moles/Vol] 100 mmol/L 95-114 [facility] Serum or plasma glucose loretta urement (mass/volume)Ordered By: Adriana Cárdenas on 05-05-2022 Glucose [Mass/Vol] 88 mg/dL 70-100 [facility] Comment on above: ADA recommended refe rence rangeRandom Glucose Reference Range is dependent on time and content of last meal. Glucose of more than 200 mg/dL in a nonstressed, ambulatory subject supports the diagnosis of Diabetes Mellitus. Serum or plasma potassium me asurement (moles/volume)Ordered By: Adriana Cárdenas on 05-05-2022 Potassium [Moles/Vol] 3.9 mmol/L 3.5-5.1 [facility] Serum or plasma sodium measu rement (moles/volume)Ordered By: Adriana Cárdenas on 05-05-2022 Sodium [Moles/Vol] 132 mmol/L 136-146 [facility] Serum or plasma total carbon dioxide measurement (moles/volume)Ordered By: Adriana Cárdenas on 05-05-2022 CO2 [Moles/Vol] 24.0 mmol/L 22.0-30.0 [facility] Serum or plasma urea nitroge n measurement (mass/volume)Ordered By: Adriana Cárdenas on 05-05-2022 Urea nitrogen [Mass/Vol] 18 mg/dL 9- [facility] Specific gravity Auto test s trip (U) [Rel density]Ordered By: Adriana Cárdenas on 05-05-2022 Specific gravity (U) [Rel density] 1.008 1.001-1.030 [facility] Squamous epithelial cells de tection in urine sediment by light microscopyOrdered By: Adriana Cárdenas on 05-05-2022 Epithelial cells.squamous LM Ql (Urine sed) None seen [HPF] 0-2 [facility] Urine bacteria detection by automated methodOrdered By: Adriana Cárdenas on 05-05-2022 Bacteria Auto Ql (U) None seen None Seen [facility] Urine clarity by refractomet ry automatedOrdered By: Adriana Cárdenas on 05-05-2022 Clarity Refractometry automated (U) Cloudy Clear [facility] Urine glucose measurement by automated test strip (mass/volume)Ordered By: Adriana Cárdenas on 05-05-2022 Glucose Auto test strip (U) [Mass/Vol] Normal mg/dL Normal [facility] Urine hemoglobin detection b y automated test stripOrdered By: Adriana Cárdenas on 05-05-2022 Hemoglobin Auto test strip Ql (U) Negative Negative [facility] Urine leukocyte esterase det ection by automated test stripOrdered By: Adriana Cárdenas on 05-05-2022 Leukocyte esterase Auto test strip Ql (U) 4+ Negative [facility] Urobilinogen Auto test strip (U) [Mass/Vol]Ordered By: Adriana Cárdenas on 05-05-2022 Urobilinogen (U) [Mass/Vol] Normal mg/dL Normal [facility] WBC Auto (Bld) [#/Vol]Ordere d By: Adriana Cárdenas on 05-05-2022 WBC (Bld) [#/Vol] 7.8 10*3/uL 3.8-11.6 [facility] pH Auto test strip (U)Ordere d By: Adriana Cárdenas on 05-05-2022 pH (U) 6.5 [pH] 5.0-9.0 [facility] ALBUMINon 01-10-2022 Albumin [Mass/Vol] 3.4 g/dL Normal 3.4-5.0 [facility] Comment on above: Performed By: #### A LB, BMP #### [facility] [address] [address] [address] Sol Friend CBC AUTO DIFFon 01-10-2022 BASO # 0.1 103/ul Normal 0.0-0.1 [facility] Comment on above: Performed By: #### C BC ####[facility] [address] [address]DrCarmen Friend Basophils/100 WBC (Bld) 1.0 % Normal 0.2-2.0 [facility] Comment on above: Performed By: #### C BC ####[facility] [address] [address]DrCarmen Friend EO # 0.3 103/ul Normal 0.0-0.7 [facility] Comment on above: Performed By: #### C BC ####[facility] [address] [address]DrCarmen Friend Eosinophils/100 WBC (Bld) 3.9 % Normal 0.9-7.0 [facility] Comment on above: Performed By: #### C BC ####[facility] [address] [id number] Friend Erythrocyte distribution width (RBC) [Ratio] 13.1 % Normal 11.0-15.0 [facility] Comment on above: Performed By: #### C BC ####[facility] [address] [id number] Friend Hematocrit (Bld) [Volume fraction] 38.6 % Normal 36.0-48.0 [facility] Comment on above: Performed By: #### C BC ####[facility] [address] [id number] Friend Hemoglobin (Bld) [Mass/Vol] 12.7 g/dL Normal 12.0-16.0 [facility] Comment on above: Performed By: #### C BC ####[facility] [address] [id number]. Sol Friend IG # 0.02 10e3/ul Normal 0.00-0.03 [facility] Comment on above: Performed By: #### C BC ####[facility] [address] [id number]. Sol Friend IG % 0.3 % Normal 0.0-0.5 [facility] Comment on above: Performed By: #### C BC ####[facility] [address] [address]Dr. Sol Friend LYMPH # 2.7 103/ul Normal 1.2-3.8 [facility] Comment on above: Performed By: #### C BC ####[facility] [address] [address]Dr. Sol Friend Lymphocytes/100 WBC (Bld) 34.1 % Normal 20.5-60.0 [facility] Comment on above: Performed By: #### C BC ####[facility] [address] [place], [place] [address]Dr. Shakilajackie Friend MANUAL DIFF REQ NO Normal [facility] Comment on above: Performed By: #### C BC ####[facility] [address] [place], [place] [address]Dr. Sol Friend MCH (RBC) [Entitic mass] 29.5 pg Normal 26.7-34.0 [facility] Comment on above: Performed By: #### C BC ####[facility] [address] [place], [place] [address]Dr. Sol Friend MCHC (RBC) [Mass/Vol] 32.9 g/dL Normal 29.9-35.2 [facility] Comment on above: Performed By: #### C BC ####[facility] [address] [place], [place] [address]Dr. Sol Friend MCV (RBC) [Entitic vol] 89.6 fL Normal 81.0-99.0 [facility] Comment on above: Performed By: #### C BC ####[facility] [address] [id number]. Sol Friend MONO # 0.8 103/ul Normal 0.3-0.8 [facility] Comment on above: Performed By: #### C BC ####[facility] [address] [id number]. Sol Friend Monocytes/100 WBC (Bld) 10.3 % Normal 1.7-12.0 [facility] Comment on above: Performed By: #### C BC ####[facility] [address] [id number]. Sol Friend NEUT # 4.0 103/ul Normal 1.4-6.5 [facility] Comment on above: Performed By: #### C BC ####[facility] [address] [id number]. Sol Friend Neutrophils/100 WBC (Bld) 50.4 % Normal 43.0-75.0 [facility] Comment on above: Performed By: #### C BC ####[facility] [address] [id number]. Sol Friend Platelet mean volume (Bld) [Entitic vol] 8.7 fL Critically low 9.5-13.5 [facility] Comment on above: Performed By: #### C BC ####[facility] [address] [id number]. Sol Friend PLT 285 103/ul Normal 150-450 [facility] Comment on above: Performed By: #### C BC ####[facility] [address] [id number]. Sol Friend RBC 4.31 106/ul Normal 4.20-5.40 [facility] Comment on above: Performed By: #### C BC ####[facility] [address] [id number]. Sol Friend WBC 7.9 103/ul Normal 4.0-11.0 [facility] Comment on above: Performed By: #### C BC ####[facility] [address] [id number]. Sol Friend MRSA NARES #1on 01-10-2022 MRSA NARES #1 Culture Observations : NO GROWTH OF MRSA AT 48 HOURS Normal [facility] Comment on above: Performed By: #### M RSAN1 ####[facility] [address] [address]Dr. Sol Friend PROF CHEM 8 (BAS METB)on Anion gap [Moles/Vol] 12.9 mmol/L Normal Th [facility] Comment on above: Performed By: #### A LB, BMP #### [facility] [address] [address] [address] Sol Friend Calcium [Mass/Vol] 8.8 mg/dL Normal 8.5-10.1 [facility] Comment on above: Performed By: #### A LB, BMP #### [facility] [address] [address] [address] Sol Friend Chloride [Moles/Vol] 93 mmol/L Critically low 98-107 [facility] Comment on above: Performed By: #### A LB, BMP #### [facility] [address] [address] [address] Sol Friend CO2 [Moles/Vol] 26.6 mmol/L Normal 21.0-32.0 [facility] Comment on above: Performed By: #### A LB, BMP #### [facility] [address] [address] [address] Sol Friend Creatinine [Mass/Vol] 0.75 mg/dL Normal 0.55-1.02 [facility] Comment on above: Performed By: #### A LB, BMP #### [facility] [address] [address] [address] Sol Friend EGFR-AF PALESTINIAN >60 Normal >=60 [facility] Comment on above: Performed By: #### A LB, BMP #### [facility] [address] [address] [address] Sol Friend EGFR-NON AF PALESTINIAN >60 Normal >=60 [facility] Comment on above: Performed By: #### A LB, BMP #### [facility] [address] [place] [address] Dr. Sol Friend Glucose [Mass/Vol] 87 mg/dL Normal 74-106 [facility] Comment on above: Performed By: #### A LB, BMP #### [facility] [address] [place] [address] Dr. Sol Friend Potassium [Moles/Vol] 3.5 mmol/L Normal 3.5-5.1 [facility] Comment on above: Performed By: #### A LB, BMP #### [facility] [address] [place] [address] Dr. Sol Friend Sodium [Moles/Vol] 129 mmol/L Critically low 136-145 Th [facility] Comment on above: Performed By: #### A LB, BMP #### [facility] [address] [place] [address] Dr. Sol Friend Urea nitrogen [Mass/Vol] 17.0 mg/dL Normal 7.0-18.0 [facility] Comment on above: Performed By: #### A LB, BMP #### [facility] [address] [place] [address] Dr. Sol Friend Urea nitrogen/Creatinine [Mass ratio] 22.7 mg/mg Normal [facility] Comment on above: Performed By: #### A LB, BMP #### [facility] [address] [place] [address] Dr. Sol Friend FREE T3on 10-03-2021 FREE T3 3.95 pg/mlL Normal 2.18-3.98 [facility] Comment on above: Performed By: #### T SH, FT3 #### [facility] [address] [place] [address] Dr. Sol Friend TSHon 10-03-2021 TSH 1.122 uIU/mL Normal 0.358-3.740 [facility] Comment on above: Performed By: #### T SH, FT3 #### [facility] [address] [place] [address] Dr. Sol Friend TSH RANGE SEE BELOW Normal [facility] Comment on above: Result Comment: <0.3 4 UIU/ml HYPERTHYROID 0.34-5.60 UIU/ml EUTHYROID >5.60 UIU/ml HYPOTHYROID Performed By: #### T SH, FT3 #### [facility] [address] [place] [address] Dr. Sol Friend Vital Signs Date Time Vital Sign Value Performing Clinician Facility 08-15-2024 10:58-0400 Body height 154.94 cm [facility] 08-15-2024 10:58-0400 Body mass index (BMI) [Ratio] 35.3 kg/m2 [facility] 08-15-2024 10:58-0400 Body weight 84.82 kg [facility] 08-15-2024 10:58-0400 Diastolic blood pressure 76 mm[Hg] [facility] 08-15-2024 10:58-0400 Heart rate 75 /min [facility] 08-15-2024 10:58-0400 Systolic blood pressure 122 mm[Hg] [facility] 07-20-2024 13:31-0500 Body height 157.5 cm Kevin Murcek DO Work Phone: [facility] 07-20-2024 13:31-0500 Body mass index (BMI) [Ratio] 33.84 kg/m2 Kevin Murcek DO Work Phone: [facility] 07-20-2024 13:31-0500 Body weight 83.92 kg Kevin Murcek DO Work Phone: [facility] 06-21-2024 09:29-0500 Body height 157.5 cm Kevin Murcek DO Work Phone: [facility] 06-21-2024 09:29-0500 Body mass index (BMI) [Ratio] 33.84 kg/m2 Kevin Murcek DO Work Phone: [facility] 06-21-2024 09:29-0500 Body weight 83.92 kg Kevin Murcek DO Work Phone: [facility] 06-13-2024 12:39-0500 Body height 157.5 cm Kevin Murcek DO Work Phone: [facility] 06-13-2024 12:39-0500 Body mass index (BMI) [Ratio] 33.84 kg/m2 Kevin Aguilar DO Work Phone: [facility] 06-13-2024 12:39-0500 Body weight 83.92 kg Kevin Aguilar DO Work Phone: [facility] 06-09-2024 14:32-0500 Diastolic blood pressure 80 mm[Hg] Aamir James MD Work Phone: [facility] 06-09-2024 14:32-0500 Systolic blood pressure 130 mm[Hg] Aamir James MD Work Phone: [facility] 06-07-2024 11:20-0500 Body height 157.5 cm Flores Lowe PA Work Phone: [facility] 06-07-2024 11:20-0500 Body mass index (BMI) [Ratio] 34.93 kg/m2 Flores Lowe PA Work Phone: [facility] 06-07-2024 11:20-0500 Body weight 86.64 kg Flores Lowe PA Work Phone: [facility] 06-07-2024 11:20-0500 Diastolic blood pressure 82 mm[Hg] Flores Lowe PA Work Phone: [facility] 06-07-2024 11:20-0500 Heart rate 71 /min Flores Lowe PA Work Phone: [facility] 06-07-2024 11:20-0500 Respiratory rate 16 /min Flores Lowe PA Work Phone: [facility] 06-07-2024 11:20-0500 SaO2% (BldA) [Mass fraction] 98 % Flores Lowe PA Work Phone: [facility] 06-07-2024 11:20-0500 Systolic blood pressure 124 mm[Hg] Flores Lowe PA Work Phone: [facility] 02-18-2024 12:45-0400 Blood Pressure Location MICAH MOROCHORY [facility] 02-18-2024 12:45-0400 Body temperature 98.6 [degF] MICAH ANS [facility] 02-18-2024 12:45-0400 Diastolic blood pressure 85 mm[Hg] MICAH NAS [facility] 02-18-2024 12:45-0400 Heart rate 68 /min MICAH NAS [facility] 02-18-2024 12:45-0400 Respiratory rate 16 /min MICAH NAS [facility] 02-18-2024 12:45-0400 Systolic blood pressure 135 mm[Hg] MICAH NAS [facility] 08-17-2023 11:21-0400 Blood Pressure Location Bertha BLAND [facility] 08-17-2023 11:21-0400 Body temperature 98.42 [degF] Bertha BLAND [facility] 08-17-2023 11:21-0400 Diastolic blood pressure 87 mm[Hg] Bertha BLAND [facility] 08-17-2023 11:21-0400 Heart rate 78 /min Bertha BLAND [facility] 08-17-2023 11:21-0400 Respiratory rate 16 /min Bertha BLAND [facility] 08-17-2023 11:21-0400 Systolic blood pressure 131 mm[Hg] Bertha BLAND [facility] 08-13-2023 14:44-0400 Body height 154.94 cm [facility] 08-13-2023 14:44-0400 Body mass index (BMI) [Ratio] 40 kg/m2 [facility] 08-13-2023 14:44-0400 Body weight 96.16 kg [facility] 08-13-2023 14:44-0400 Diastolic blood pressure 89 mm[Hg] [facility] 08-13-2023 14:44-0400 Heart rate 67 /min [facility] 08-13-2023 14:44-0400 Systolic blood pressure 162 mm[Hg] [facility] 03-31-2023 13:47-0500 Diastolic blood pressure 88 mm[Hg] IMAGING SCHEDULER-C Bambi Nam Work Phone: [facility] 03-31-2023 13:47-0500 Heart rate 82 /min IMAGING SCHEDULER-C Bambi Nam Work Phone: [facility] 03-31-2023 13:47-0500 Respiratory rate 16 /min IMAGING SCHEDULER-C Bambi Nam Work Phone: [facility] 03-31-2023 13:47-0500 SaO2% (BldA) [Mass fraction] 97 % IMAGING SCHEDULER-C Bambi Nam Work Phone: [facility] 03-31-2023 13:47-0500 Systolic blood pressure 140 mm[Hg] IMAGING SCHEDULER-C Bambi Nam Work Phone: [facility] 03-31-2023 12:01-0500 Body height 154.94 cm IMAGING SCHEDULER-C Bambi Nam Work Phone: [facility] 03-31-2023 12:01-0500 Body temperature 97.7 [degF] IMAGING SCHEDULER-C Bambi Nam Work Phone: [facility] 03-31-2023 12:01-0500 Body weight 92.07 kg IMAGING SCHEDULER-C Bambi Nam Work Phone: [facility] 03-12-2023 10:30-0400 Diastolic blood pressure 71 mm[Hg] IMAGING SCHEDULER-C Bambi Nam Work Phone: [facility] 03-12-2023 10:30-0400 Heart rate 80 /min IMAGING SCHEDULER-C Bambi Nam Work Phone: [facility] 03-12-2023 10:30-0400 Respiratory rate 16 /min IMAGING SCHEDULER-C Bambi Nam Work Phone: [facility] 03-12-2023 10:30-0400 SaO2% (BldA) [Mass fraction] 100 % IMAGING SCHEDULER-C Bambi Nam Work Phone: [facility] 03-12-2023 10:30-0400 Systolic blood pressure 136 mm[Hg] IMAGING SCHEDULER-C Bambi Nam Work Phone: [facility] 03-12-2023 08:37-0400 Body height 157.48 cm IMAGING SCHEDULER-C Bambi Nam Work Phone: [facility] 03-12-2023 08:37-0400 Body temperature 97.6 [degF] IMAGING SCHEDULER-C Bambi Nam Work Phone: [facility] 03-12-2023 08:37-0400 Body weight 92.07 kg IMAGING SCHEDULER-C Bambi Nam Work Phone: [facility] 02-13-2023 09:30-0400 Blood Pressure Location Bertha BLAND [facility] 02-13-2023 09:30-0400 Body temperature 97.88 [degF] Bertha BLAND [facility] 02-13-2023 09:30-0400 Diastolic blood pressure 82 mm[Hg] Bertha BLAND [facility] 02-13-2023 09:30-0400 Heart rate 78 /min Bertha BLAND [facility] 02-13-2023 09:30-0400 Systolic blood pressure 124 mm[Hg] Bertha BLAND [facility] 07-24-2022 13:15-0500 Body height 157.48 cm Cesar Estrada Other [facility] Other 07-24-2022 13:15-0500 Body mass index (BMI) [Ratio] 37.31 kg/m2 Cesar Estrada Other [employer] Other 07-24-2022 13:15-0500 Body weight 92.53 kg Cesar Estrada Other [employer] Other 07-24-2022 13:15-0500 Diastolic blood pressure 76 mm[Hg] Cesar Estrada Other [employer] Other 07-24-2022 13:15-0500 Respiratory rate 20 /min Cesar Estrada Other [employer] Other 07-24-2022 13:15-0500 Systolic blood pressure 135 mm[Hg] Cesar Estrada Other [employer] Other 04-02-2021 14:00-0500 Body height 157.48 cm Dominick Hester Other [employer] Other 04-02-2021 14:00-0500 Body mass index (BMI) [Ratio] 33.47 kg/m2 Dominick Hester Other [employer] Other 04-02-2021 14:00-0500 Body weight 83.01 kg Dominick Hester Other [employer] Other Encounters Encounter Date Encounter Type Care Provider Facility Start: 05-16-2025 ambulatory Bambi L Nam Facility: [facility] Start: 02-17-2025 ambulatory Bertha Vu EDWINA Paulinoi ty:[facility] Start: 08-29-2024 ambulatory Bambi L Nam Facility: [facility] Start: 08-22-2024 End: 08-22-2024 Bamboo flowsheet Robert Jhon DO Work Phone: [facility] Start: 08-22-2024 End: 08-22-2024 Bamboo flowsheet Robert Jhon DO Work Phone: [facility] Start: 08-15-2024 End: 08-15-2024 ambulatory [facility] Work Phone: Start: 08-15-2024 End: 08-15-2024 Patient encounter procedure [facility] Work Phone: Start: 07-20-2024 End: 07-20-2024 Bamboo flowsheet Kevin Aguilar DO Work Phone: [facility] Start: 07-20-2024 End: 07-20-2024 Bamboo flowsheet Kevin Aguilar DO Work Phone: [facility] Start: 07-20-2024 End: 07-20-2024 Office outpatient visit 15 minutes Kevin Aguilar DO Work Phone: [facility] Comment on above: Open wound of face, subsequent encounter (Primary Dx) Start: 07-20-2024 End: 07-20-2024 ambulatory KEVIN AGUILAR Not Available Start: 06-23-2024 End: 06-23-2024 Telephone encounter Rosalinda Bernstein PA Work Phone: [facility] Comment on above: Dentist Start: 06-21-2024 End: 06-21-2024 Bamboo flowsheet Kevin gAuilar DO Work Phone: [facility] Start: 06-21-2024 End: 06-21-2024 Bamboo flowsheet Kevin Aguilar DO Work Phone: [facility] Start: 06-21-2024 End: 06-21-2024 Postop follow up visit related to original px Kevin Aguilar DO Work Phone: [facility] Comment on above: Open wound of face, subsequent encounter (Primary Dx) Start: 06-21-2024 End: 06-21-2024 ambulatory KEVIN AGUILAR Not Available Start: 06-15-2024 End: 06-15-2024 ambulatory KEVIN AGUILAR Not Available Start: 06-13-2024 End: 06-13-2024 Bamboo flowsheet Kevin Aguilar DO Work Phone: [facility] Start: 06-13-2024 End: 06-13-2024 Bamboo flowsheet Kevin Aguilar DO Work Phone: [facility] Start: 06-13-2024 End: 06-13-2024 Office outpatient new 45 minutes Kevin Aguilar DO Work Phone: [facility] Comment on above: Open facial wound, i nitial encounter; Preop testing Start: 06-13-2024 End: 06-13-2024 Patient encounter status Kevin Aguilar DO Work Phone: [facility] Start: 06-13-2024 End: 06-13-2024 ambulatory KEVIN AGUILAR Not Available Start: 06-12-2024 End: 06-12-2024 Preprocedural examination done Kevin Aguilar DO Work Phone: [facility] Start: 06-09-2024 End: 06-09-2024 Patient encounter procedure Aamir James MD Work Phone: [facility] Comment on above: 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) Start: 06-09-2024 End: 06-09-2024 ambulatory AAMIR JAMES Not Available Start: 06-07-2024 End: 06-07-2024 Bamboo flowsheet Flores Lowe PA Work Phone: [facility] Start: 06-07-2024 End: 06-07-2024 Bamboo flowsheet Flores Lowe PA Work Phone: [facility] Start: 06-07-2024 End: 06-07-2024 Office outpatient visit 25 minutes Flores Lowe PA Work Phone: [facility] Comment on above: Cerebrovascular acci dent (CVA), unspecified mechanism (CMS/HCC) (Primary Dx); Muscle spasm; Lumbosacral radiculopathy; Degeneration of intervertebral disc of lumbar region with discogenic back pain and lower extremity pain Start: 06-07-2024 End: 06-07-2024 ambulatory FLORES LOWE Not Available Start: 05-26-2024 End: 05-26-2024 Lab Drop off Bambi L Nam [facility] Start: 05-26-2024 End: 05-26-2024 ambulatory Bambi L Nam Facility:[facility] [place] [facility] Start: 05-16-2024 End: 05-16-2024 ambulatory Bambi L Nam Facility:[facility] [place] Start: 04-12-2024 End: 04-12-2024 Bamboo flowsheet Kateryna Chávez MD Work Phone: [facility] Start: 04-12-2024 End: 04-12-2024 Bamboo flowssumeet Chávez MD Work Phone: [facility] Start: 04-12-2024 End: 04-12-2024 ambulatory KATERYNA CHÁVEZ Not Available Start: 04-12-2024 End: 04-12-2024 Office outpatient new 20 minutes Kateryna Chávez MD Work Phone: [facility] Comment on above: Melanocytic nevi of face (Primary Dx); Neoplasm of unspecified behavior of bone, soft tissue, and skin Start: 03-15-2024 End: 03-15-2024 ambulatory Bambi L Nam [facility] Rissa beverlye Start: 02-18-2024 End: 02-18-2024 ambulatory MICAH MOROCHORY Facility: [facility] Start: 02-18-2024 End: 02-18-2024 Patient encounter procedure MICAH LOVELL [facility] Start: 02-09-2024 End: 02-09-2024 ambulatory Bambi L Nam Facility:[facility] alfreda Start: 01-21-2024 End: 01-21-2024 Lab Drop off Bambi L Nam [facility] Start: 01-21-2024 End: 01-21-2024 ambulatory Bambi L Nam Facility:[facility] Start: 12-28-2023 End: 12-28-2023 ambulatory ROSALINDA BERNSTEIN Not Available Start: 12-24-2023 End: 12-24-2023 ambulatory SAGE BRMARGARETH Not Available Start: 12-22-2023 End: 12-22-2023 ambulatory FLORES GAYTAN Not Available Start: 12-17-2023 End: 12-17-2023 ambulatory ANA KELBLEY Not Available Start: 12-14-2023 End: 12-14-2023 ambulatory SAGE BRINK Not Available Start: 12-10-2023 End: 12-10-2023 ambulatory SAGE BRINK Not Available Start: 12-08-2023 End: 12-08-2023 ambulatory SAGE BRINK Not Available Start: 12-03-2023 End: 12-03-2023 ambulatory ANA KELBLEY Not Available Start: 12-01-2023 End: 12-01-2023 ambulatory ANA KELBLEY Not Available Start: 11-30-2023 End: 11-30-2023 ambulatory ROSALINDA BERNSTEIN Not Available Start: 11-26-2023 End: 11-26-2023 ambulatory ANA JHA Not Available Start: 11-24-2023 End: 11-24-2023 ambulatory ELENA RDZ Not Available Start: 11-20-2023 End: 11-20-2023 ambulatory SAGE JO Not Available Start: 11-18-2023 End: 11-18-2023 ambulatory ANA JHA Not Available Start: 11-16-2023 End: 11-16-2023 ambulatory ELENA RDZ Not Available Start: 11-12-2023 End: 11-12-2023 ambulatory ELENA RDZ Not Available Start: 11-05-2023 End: 11-05-2023 ambulatory ROSALINDA BERNSTEIN Not Available Start: 10-05-2023 End: 10-05-2023 ambulatory Bambi L Nam Facility:[facility] Start: 10-01-2023 End: 10-01-2023 ambulatory Marc Leggett Facility:[facility] Start: 10-01-2023 Encounter for other preprocedural examination Rosalinda Bernstein [facility] Start: 10-01-2023 End: 10-01-2023 ambulatory IMAGING SCHEDULER-C Bambi Vegas Nam Work Phone: [facility] Work Phone: Start: 10-01-2023 End: 10-01-2023 Patient encounter procedure IMAGING SCHEDULER-C Bambi Nam Work Phone: [facility] [address] Work Phone: Start: 09-30-2023 End: 09-30-2023 ambulatory Marc Leggett Facility:[facility] Start: 09-30-2023 End: 09-30-2023 Patient encounter procedure IMAGING SCHEDULER-C Bambi Nam Work Phone: [facility] Work Phone: Start: 09-30-2023 End: 09-30-2023 ambulatory ROSALINDA BERNSTEIN Not Available Start: 09-14-2023 End: 09-14-2023 ambulatory Bertha BLAND Facility:[facility] [place] Start: 09-14-2023 End: 09-14-2023 Patient encounter procedure [facility] BL[facility] Start: 09-07-2023 End: 09-07-2023 ambulatory ADRIANA ERAZO Not Available Start: 09-02-2023 End: 09-02-2023 ambulatory ROSALINDA Nemo BERNSTEIN Not Available Start: 08-26-2023 End: 08-26-2023 ambulatory Bambi Browning Facility:[facility] Rissa gant Start: 08-18-2023 End: 08-18-2023 ambulatory ROBERT FERREIRA Not Available Start: 08-17-2023 End: 08-17-2023 ambulatory [facility] Start: 08-17-2023 End: 08-17-2023 Patient encounter procedure Bertha BLAND [facility] Start: 08-13-2023 End: 08-13-2023 ambulatory Cesar Estrada Facility:[facility] Start: 08-13-2023 End: 08-13-2023 ambulatory IMAGING SCHEDULER-C Bambi Browning Work Phone: [facility] Work Phone: Start: 08-13-2023 End: 08-13-2023 Patient encounter procedure [facility] Work Phone: Start: 05-13-2023 End: 05-13-2023 Lab Drop off Bambi Browning [facility] Start: 04-16-2023 End: 04-16-2023 ambulatory Cesar Estrada Other [employer] Other Start: 04-16-2023 Telephone encounter Cesar [facility]OD [facility] Start: 04-01-2023 End: 04-01-2023 ambulatory Cesar Estrada Other [employer] Other Start: 04-01-2023 Telephone encounter Cesar ROD [facility] Start: 03-31-2023 End: 03-31-2023 ambulatory Cesar Estrada Facility:[facility] Start: 03-31-2023 End: 03-31-2023 Admission to same day surgery center IMAGING SCHEDULER-C Bambi Nam Work Phone: [facility] Work Phone: Start: 03-31-2023 End: 03-31-2023 ambulatory IMAGING SCHEDULER-C Bambi Vegas Nam Work Phone: [facility] Work Phone: Start: 03-16-2023 End: 03-16-2023 ambulatory Cesar Estrada Other [employer] Other Start: 03-16-2023 Telephone encounter Cesar Ruano [facility] Start: 03-12-2023 End: 03-12-2023 ambulatory Bambi Vegas Nam Facility:[facility] Start: 03-12-2023 End: 03-12-2023 Admission to same day surgery center IMAGING SCHEDULER-C Bambi Nam Work Phone: [facility] Work Phone: Start: 03-12-2023 End: 03-12-2023 ambulatory IMAGING SCHEDULER-C Bambi Vegas Nam Work Phone: [facility] Work Phone: Start: 02-13-2023 End: 02-13-2023 Patient encounter procedure Bertha BLAND [facility] Start: 12-11-2022 End: 12-12-2022 ambulatory Deanna Phan Facility:[facility] Start: 11-27-2022 End: 11-27-2022 ambulatory Bambi Browning Facility:[facility] Start: 11-27-2022 End: 11-27-2022 ambulatory IMAGING SCHEDULER-C Bambi Vegas Nam Work Phone: [facility] Work Phone: Start: 11-27-2022 End: 11-27-2022 Patient encounter procedure IMAGING SCHEDULER-C Bambi Nam Work Phone: [facility] [address] Work Phone: Start: 11-24-2022 End: 11-24-2022 ambulatory Adriana Cárdenas Jr Facility:[facility] Start: 11-24-2022 End: 11-24-2022 ambulatory IMAGING SCHEDULER-C Bambi Vegas Nam Work Phone: [facility] Work Phone: Start: 11-24-2022 End: 11-24-2022 Patient encounter procedure IMAGING SCHEDULER-C Bambi Nam Work Phone: [facility] Work Phone: Start: 10-17-2022 End: 10-17-2022 Lab Drop off MICAH LOVELL [facility] Start: 10-17-2022 End: 10-17-2022 Patient encounter procedure Bertha BLAND [facility] [place] Start: 09-23-2022 End: 09-23-2022 Lab Drop off Bertha BLAND [facility] Start: 09-22-2022 End: 09-22-2022 Patient encounter procedure Bertha BLAND [facility] [place] Start: 08-19-2022 End: 08-20-[address] ESTEFANÍA SUTHERLAND . Facility:[facility] Start: 08-11-2022 End: 08-11-[address] ESTEFANÍA SUTHERLAND . Facility:[facility] Start: 07-31-2022 End: 08-01-[address] ESTEFANÍA SUTHERLAND . Facility:[facility] Start: 07-29-2022 End: 07-29-2022 Patient encounter procedure Bertha BLAND [facility] Start: 07-24-2022 End: 07-24-2022 ambulatory Cesar Estrada Other [employer] Other Start: 07-24-2022 Patient encounter procedure Cesar Estrada [facility] Start: 07-22-2022 End: 07-23-[address] BERTHA BLAND . Facility:[facility] Start: 07-14-2022 End: 07-14-2022 Lab Drop off Bertha BLAND [facility] Start: 06-12-2022 End: 06-13-[address] BERTHA BLAND . Facility:[facility] Start: 06-05-2022 End: 06-06-[address] ESTEFANÍA SUTHERLAND . Facility:[facility] Start: 05-19-2022 End: 05-20-2022 ambulatory MR ROSALINDA BERNSTEIN . Facility:[facility] Start: 05-16-2022 End: 05-17-[address] ROBERT FERREIRA . Facility:[facility] Start: 05-05-2022 End: 05-05-2022 ambulatory MD Estefanía Sutherland Work Phone: [facility] Work Phone: Start: 05-05-2022 End: 05-05-2022 Patient encounter procedure MD Estefanía Sutherland Work Phone: [facility] [address] Start: 05-05-2022 End: 05-05-2022 ambulatory MD Estefanía Sutherland Work Phone: [facility] Work Phone: Start: 05-05-2022 End: 05-05-2022 Patient encounter procedure MD Estefanía Sutherland Work Phone: [facility] Start: 01-29-2022 End: 01-29-[address] ESTEFANÍA SUTHERLAND . Facility:[facility] Start: 01-13-2022 Encounter for preprocedural cardiovascular examination DR ESTEFANÍA SUTHERLAND . [facility] Start: 01-13-2022 Encounter for preprocedural laboratory examination DR ESTEFANÍA SUTHERLAND . [facility] Start: 01-10-2022 End: 01-11-[address] ESTEFANÍA SUTHERLAND . Facility: Start: 01-10-2022 End: 01-11-2022 Encounter for preprocedural laboratory examination DR ESTEFANÍA SUTHERLAND . Facility:[facility] Start: 10-03-2021 End: 10-04-[address] ESTEFANÍA SUTHERLAND . Facility: Start: 09-17-2021 End: 09-17-2021 ambulatory Dominick Hester Other [employer] Other Start: 09-17-2021 Telephone encounter Dominick Hester [facility] Start: 04-02-2021 End: 04-02-2021 ambulatory Dominick Hester Other [employer] Other Start: 04-02-2021 Office outpatient vi sit 25 minutes Dominick Hester [facility] Procedures Date Procedure Procedure Detail Performing Clinician Start: 06-08-2024 MOHS SURGERY Aamir James MD Work Phone: Start: 04-12-2024 SKIN / NAIL BIOPSY Kateryna Chávez MD Work Phone: Start: 10-01-2023 Plain X-ray of bilateral femurs IMAGING SCHEDULER-C Mayuri Browning Work Phone: Start: 10-01-2023 Plain X-ray of bilateral tibia and bilateral fibula IMAGING SCHEDULER-C Bambi Nam Work Phone: Start: 09-30-2023 Plain chest X-ray IMAGING SCHEDULER-C Bambi Nam Work Phone: Start: 08-28-2023 Mammography Kateryna Chávez MD Work Phone: Start: 03-31-2023 Esophagogastroduodenoscopy IMAGING SCHEDULER-C Bambi Maddy wab Work Phone: Start: 03-12-2023 Colonoscopy IMAGING SCHEDULER-C Bambi Nam Work Phone: Start: 11-27-2022 Plain X-ray of bilateral femurs IMAGING SCHEDULER-C Jod i Nam Work Phone: Start: 11-27-2022 Plain X-ray of bilateral tibia and bilateral fibula IMAGING SCHEDULER-C Bambi Nam Work Phone: Start: 11-24-2022 Antibody screen Marc Leggett Comment on above: Order Comment: Date of Surgery: 20221211 # of PRBC units on hold?: 2 Result Comment: PERF ORMED BY: [facility] [address] [address] PATHOLOGIST GATE TECHNICIAN LILIANA WAKEFIELD M.D. Order Comment: Date of Surgery: 20221211 # of PRBC units on hold?: 2 Start: 05-05-2022 Plain X-ray of bilateral femurs MD Estefanía may Work Phone: Start: 05-05-2022 Plain X-ray of bilateral tibia and bilateral fibula MD Estefanía Sutherland Work Phone: Appendectomy Bertha BLAND Arthroscopy knee w/m eniscus rpr medial/lateral Berthaeleazar BLAND Arthroscopy of knee Bertha BLAND Cervical polypectomy Bertha BLAND Colonoscopy Bertha BLAND Cyst (disorder) Bambi Nam Comment on above: 1969 Cystoscopy Bertha BLAND Hysterectomy Bertha BLAND Thyroidectomy Bertha BLAND Plan of Treatment Date Care Activity Detail Author Start: 12-13-2024 End: 12-13-2024 Patient encounter procedure 12/13/2024 11:05 AM EDT Office Visit [facility] [address] [place] [address] Kateryna Chávez MD [address] [place], [place] [id number] [facility] Start: 11-22-2024 End: 11-22-2024 Patient encounter procedure 11/22/2024 10:40 AM EDT Office Visit [facility] [address] [place] [phone] Flores Gaytan PA [address] [place] [address] [facility] Start: 10-27-2024 End: 10-27-2024 Patient encounter procedure 10/27/2024 10:45 AM EDT Office Visit [facility] [address] [place] [phone] Rosalinda Bernstein PA [address] [facility] [address] [place] [address] [facility] Start: 08-27-2024 Screening for malignant neoplasm of breast Mammogram [facility] Start: 08-22-2024 End: 08-22-2024 Patient encounter procedure 08/22/2024 1:00 PM EDT Office Visit [facility] [address] [phone] Robert Ferreira DO [address] [place] [address] [facility] Start: 07-20-2024 End: 07-20-2024 Patient encounter procedure [facility] [place] Comment on above: Arrived Start: 06-21-2024 End: 06-21-2024 Patient encounter procedure [facility] [place] Comment on above: Arrived Start: 06-13-2024 End: 06-13-2025 ECG 12 lead ECG 12 lead ECG Routine Preop testing Expected: 06/13/2024 (Approximate), Expires: 06/13/2025 [facility] Work Phone: Comment on above: Expected: 06/13/2024 (Approximate), Expi res: 06/13/2025 Start: 06-13-2024 End: 06-13-2024 Patient encounter procedure 06/13/2024 12:45 PM EST Office Visit [facility] [address] [place] [phone] Kevin Aguilar, [address] [place] [address] Basal cell carcinoma (BCC) of glabella [facility] Comment on above: Basal cell carcinoma (BCC) of glabella Start: 06-09-2024 End: 06-09-2024 Patient encounter procedure 06/09/2024 1:15 PM EST Office Visit [facility] [address] [place] [phone] Aamir James MD [address] [place] [address] [facility] Start: 06-07-2024 End: 06-07-2024 Patient encounter procedure [facility] [address] Comment on above: Arrived Start: 01-17-2024 Influenza vaccination Influenza Vaccine (#1) [facility] Start: 09-30-[address] Urine Culture [facility] Start: 03-31-2023 [facility] Start: 03-12-2023 [facility] Start: 02-26-2016 Pneumococcal Vaccine: 65+ Years (1 of 1 - PCV) Pneumococcal Vaccine: 65+ Years (1 of 1 - PCV) [facility] Start: 1950 Screening for malignant neoplasm of colon [facility] Bacteria identified in Urine by Culture Urine Culture [facility] Comprehensive metabo lic 2000 panel - Serum or Plasma [facility] Dermatopathology exam Dermatopat hology exam Pathology and Cytology Timed Neoplasm of unspecified behavior of bone, soft tissue, and skin Release Upon Ordering for 1 Occurrences starting 04/12/2024 [facility] Work Phone: Comment on above: Release Upon Ordering for 1 Occurrences starting 04/12/2024 Patient Education [facility] Work Phone: [facility] Immunizations Immunization Date Immunization Notes Care Provider Fa leonila 04-28-2024 influenza virus vaccine, unspecified formulation Bambi Davisab [facility] 04-28-2024 influenza, high dose seasonal, preservative-free Kevin Aguilar DO Work Phone: [facility] 04-28-2024 pneumococcal 20-jomar nt conjugate vaccine Bambi Browning [facility] 04-21-2022 COVID-19 mRNA Bivale nt Booster (Pfizer) MD Estefanía Sutherland Work Phone: [facility] 04-21-2022 influenza virus vaccine, unspecified formulation Bertha EDWINA [facility] 04-21-2022 Influenza, High-dose Seasonal, Quadrivalent, Preservative Free Kateryna Chávez MD Work Phone: [facility] 04-21-2022 Moderna Bivalent Booster Vaccination Kateryna Chávez MD Work Phone: [facility] 04-21-2022 Moderna SARS-CoV-2 50mcg/0.5mL Booster Kateryna Chávez MD Work Phone: [facility] 03-15-2021 COVID-19 mRNA, Comirnaty (Pfizer) MD Estefanía Sutherland Work Phone: [facility] Comment on above: Result Comment: 2022: [id number] 03-15-2021 influenza virus vaccine, unspecified formulation Bertha BLAND [facility] 03-15-2021 Influenza, Seasonal, Quadrivalent, Adjuvanted Kateryna Chávez MD Work Phone: [facility] 01-24-2021 diphtheria, tetanus toxoids and pertussis vaccine Kateryan Chávez MD Work Phone: [facility] 08-08-2020 COVID-19 mRNA Comirjimenez (Pfizer) MD Estefanía Sutherland Work Phone: [facility] 07-11-2020 COVID-19 mRNA Comirnatpati (Pfizer) MD Estefanía Sutherland Work Phone: [facility] 02-16-2020 influenza, injectabl e, quadrivalent, contains preservative Kateryna Chávez MD Work Phone: [facility] 07-01-2019 zoster vaccine recombinant Bertha EDWINA [facility] 04-30-2019 influenza virus vaccine, unspecified formulation Berthaeleazar BLAND [facility] 04-30-2019 influenza, high dose seasonal, preservative-free Kateryna Chávez MD Work Phone: [facility] 04-30-2019 zoster vaccine recombinant Bertha BLAND [facility] Payers Date Payer Category Payer Self-pay [id number] 2018 [facility] er [id number] 2016 Medicare MEDICARE [id number] 1959 [facility] [id number] 1959 Medicare [id number] 1951 Unknown [id number] 2.16840.1.361612.3.579.2. 593 1951 Unknown [id number] 2.16.840.1.297209.3.579.2. 593 1951 Unknown [id number] 2.16.840.1.918244.3.579.2. 593 1951 Unknown [id number] 2.16.840.1.204361.3.579.2. 593 1951 Unknown [id number] 2.16.840.1.415818.3.579.2. 593 1951 Unknown [id number] 2.16.840.1.583921.3.579.2. 593 1951 Unknown [id number] 2.16.840.1.463428.3.579.2. 593 1951 Unknown [id number] 2.16.840.1.175942.3.579.2. 593 1951 Unknown [id number] 2.16.840.1.858871.3.579.2. 593 1951 Unknown [id number] 2.16.840.1.033648.3.579.2. 593 1951 Unknown [id number] 2.16.840.1.081118.3.579.2. 593 1951 Unknown [id number] 2.16.840.1.698930.3.579.2. 593 1951 Unknown [id number] 2.16.840.1.865213.3.579.2. 72 1951 Unknown [id number] 2.16.840.1.126040.3.579.2. 72 1951 Unknown [id number] 2.16.840.1.838340.3.579.2. 72 1951 Unknown [id number] 2.16.840.1.216686.3.579.2. 72 1951 Unknown [id number] 2.16.840.1.891341.3.579.2. 727 1951 Unknown [id number] 2.16.840.1.222794.3.579.2. 727 1951 Unknown [id number] 2.16.840.1.177462.3.579.2. 727 1950 Unknown [id number] 2.16.840.1.941657.3.579.2. 727 1950 Unknown [id number] 2.16.840.1.983610.3.579.2. 727 1950 Unknown [id number] 2.16.840.1.173731.3.579.2. 72 1950 Unknown [id number] 2.16.840.1.263954.3.579.2. 727 1951 Unknown [id number] 2.16.840.1.782911.3.579.2. 727 1950 Unknown [id number] 2.16.840.1.816566.3.579.2. 727 1951 Unknown [id number] 2.16.840.1.037455.3.579.2. 727 1951 Unknown [id number] 2.16.840.1.238249.3.579.2. 727 1951 Unknown [id number] 2.16.840.1.179616.3.579.2. 1258 1951 Unknown [id number] 2.16.840.1.858163.3.579.2. 1258 1951 Unknown [id number] 2.16.840.1.732126.3.579.2. 1258 1951 Unknown [id number] 2.16.840.1.990505.3.579.2. 125 1951 Unknown [id number] 2.16.840.1.527060.3.579.2. 1258 1951 Unknown [id number] 2.16.840.1.071608.3.579.2. 125 1951 Unknown [id number] 2.16.840.1.890402.3.579.2. 125 1951 Unknown [id number] 2.16.840.1.487604.3.579.2. 125 1951 Unknown [id number] 2.16.840.1.947148.3.579.2. 125 1951 Unknown [id number] 2.16.840.1.850906.3.579.2. 125 1951 Unknown [id number] 2.16.840.1.349826.3.579.2. 125 1951 Unknown [id number] 2.16.840.1.908328.3.579.2. 1258 1951 Unknown [id number] 2.16.840.1.223776.3.579.2. 1258 1951 Unknown [id number] 2.16.840.1.574870.3.579.2. 1258 1951 Unknown [id number] 2.16.840.1.005263.3.579.2. 1258 1951 Unknown [id number] 2.16.840.1.457512.3.579.2. 1258 1951 Unknown [id number] 2.16.840.1.527690.3.579.2. 1258 1951 Unknown [id number] 2.16.840.1.373497.3.579.2. 1258 1951 Unknown [id number] 2.16.840.1.588421.3.579.2. 1258 1951 Unknown [id number] 2.16.840.1.156624.3.579.2. 1258 1951 Unknown [id number] 2.16.840.1.182828.3.579.2. 1258 1951 Unknown [id number] 2.16.840.1.705552.3.579.2. 1258 1951 Unknown [id number] 2.16.840.1.244303.3.579.2. 1258 1951 Unknown [id number] 2.16.840.1.775159.3.579.2. 1258 1951 Unknown [id number] 2.16.840.1.949492.3.579.2. 1258 1951 Unknown [id number] 2.16.840.1.115874.3.579.2. 1258 1951 Unknown [id number] 2.16.840.1.655969.3.579.2. 1259 1951 Unknown [id number] 2.16.840.1.557814.3.579.2. 1259 1951 Unknown [id number] 2.16.840.1.798829.3.579.2. 1259 1951 Unknown [id number] 2.16.840.1.521378.3.579.2. 1259 1950 Unknown [id number] 2.16.840.1.094514.3.579.2. 1259 Unknown [facility] Health Claims [id number] Unknown [id number] 2.16.840.1.092903.3.579.2. 531 Unknown [id number] 2.16.840.1.113582.3.579.2. 531 Unknown [id number] 2.16.840.1.130930.3.579.2. 531 Unknown [id number] 2.16.840.1.419999.3.579.2. 531 Unknown [id number] 2.16.840.1.596076.3.579.2. 531 Unknown [id number] 2.16.840.1.460265.3.579.2. 531 Unknown [id number] 2.16.840.1.480319.3.579.2. 531 Unknown [id number] 2.16.840.1.366268.3.579.2. 531 Social History Date Type Detail Facility Unknown if ever smoked [facility] Start: 12-28-2023 End: 07-20-2024 Sex Assigned At [facility] Start: 05-05-2022 End: 06-21-2024 Tobacco smoking status NVIS Ex-smoker (finding) [facility] Comment on above: quite smoking 2001. did previously smoke 1.5-2 PPD Start: 1950 Sex Assigned At Female F [facility] Start: 11-19-2022 End: 05-13-2023 Tobacco smoking status Never Adilene Cecilia Chaudhari Comment on above: quite smoking 2001. did previously smoke 1.5-2 PPD End: 04-08-2002 History of tobacco use Current smoker [facility] End: 04-08-2002 History of tobacco use Cigarette Smoker [facility] Start: 04-17-2023 End: 06-21-2024 Tobacco use and exposure Smokeless tobacco non-user [facility] Start: 04-12-2024 End: 07-20-2024 Alcoholic beverage intake Current drinker of alcohol (finding) [facility] Start: 04-12-2024 End: 07-20-2024 Alcoholic beverage intake [facility] Start: 02-22-2023 Alcohol Comment caffeine intak e: 3-4 cups per day. [facility] Start: 11-19-2022 Gender identity Identifies as female gender (finding) [facility] Start: 06-21-2024 Alcohol Comment Less than one drink per month [facility] Start: 08-15-2024 Sex Female (finding) [facility] Medical Equipment Procedure Code Equipment Code Equipment Origin al Text Equipment Identifier Dates Arthroplasty, knee, total, minimally invasive Orthopaedic cement, non-medicated [id number] FDA Start: 12-11-2022 Arthroplasty, knee, total, minimally invasive Orthopaedic bone screw, non-bioabsorbable, sterile ()[id number] FDA Start: 12-11-2022 Arthroplasty, knee, total, minimally invasive Orthopaedic bone screw, non-bioabsorbable, sterile ()[id number] FDA Start: 12-11-2022 Arthroplasty, knee, total, minimally invasive Uncoated knee femur prosthesis ()[id number] FDA Start: 12-11-2022 Arthroplasty, knee, total, minimally invasive Tibial insert ()[id number] FDA Start: 12-11-2022 Arthroplasty, knee, total, minimally invasive Uncoated knee tibia prosthesis, metallic ()[id number] FDA Start: 12-11-2022 Arthroplasty, knee, total, minimally invasive Polyethylene patella prosthesis ()[id number] FDA Start: 12-11-2022 Goals Date Patient Goal Desired Activity /State Functional Status Date Assessment Result Facility 02-18-2024 Functional Status N/A [facility] 08-17-2023 Functional Status N/A [facility] 02-13-2023 Functional Status N/A [facility] 07-24-2022 Functional Status N/A [facility] Clinical Notes 04-02-2021 to 07-20-2024 Kevin Aguilar DO - 07/20/2024 1:30 PM ESTTelephone Encounter - Myra Turcios - 06/23/2024 1:09 PM ESTTelephone Encounter - Myra Turcios - 06/23/2024 1:09 PM EST Note Date & Type Note Facility 07-20-2024 History of Present illness Narrative HPI Patient presents today status post closure of a left glabellar Mohs defect about a month ago. She is doing great. Relevant postoperative physical examination Examination shows that the repair is nearly imperceptible. She is very happy. Assessment/plan Gia was seen today for post-op. Diagnoses and all orders for this visit: Open wound of face, subsequent encounter (Primary) Comments: Instructions including not to get the area sunburned or suntanned. I will see her back as needed documented in this encounter [facility] 06-23-2024 Telephone encounter Note Patient notified [facility] 06-23-2024 Miscellaneous Notes Patient notified Rx sent to pharmacy Patient called and left vm requesting antibiotic be sent to her pharmacy for her upcoming dentist appt. documented in this encounter [facility] 06-23-2024 Telephone encounter Note Rx sent to pharmacy [facility] 06-23-2024 Telephone encounter Note Patient called and left vm requesting antibiotic be sent to her pharmacy for her upcoming dentist appt. [facility] 06-21-2024 History of Present illness Narrative HPI Patient presents today 1 week postop complex closure of a left glabellar defect secondary to Mohs. She is doing fine. Relevant postoperative physical examination Sutures removed, everything healing very well. Assessment/plan Gia was seen today for post-op. Diagnoses and all orders for this visit: Open wound of face, subsequent encounter (Primary) Comments: Patient given wound instructions, I will see her back in a month documented in this encounter [facility] 06-13-2024 History of Present illness Narrative Allergies as of 06/13/2024 - Reviewed 06/09/2024 Allergen Reaction Noted Sulfamethoxazole-trimethoprim Rash 11/26/2022 Hydrocodone-acetaminophen GI intolerance 11/26/2022 Oxycodone-acetaminophen Hallucinations 11/26/2022 Wound dressing adhesive Rash 08/13/2023 Past Medical History: Diagnosis Date Abnormal Pap smear of cervix Acid reflux Alcohol abuse BMI 33.0-33.9,adult Crohn's disease (CMS/HCC) Depression ([facility]/HCC) Depression screen Diabetes type 2, controlled ([facility]/HCC) Diabetes, gestational DM2 (diabetes mellitus, type 2) ([facility]) Encounter for gynecological examination (general) (routine) without abnormal findings GERD (gastroesophageal reflux disease) H/O degenerative disc disease Hemangioma Hepatitis A History of being hospitalized STROKE 08/2019, childbirth Hyperlipidemia (CMS/HCC) Hypertension (CMS/HCC) Hypothyroid (CMS/HCC) Hypothyroidism (CMS/HCC) Kidney disease Lacunar infarction (CMS/HCC) Neurologic disorder OA (osteoarthritis) JOSE RAMON (obstructive sleep apnea) Post menopausal syndrome Post-menopausal PVD (peripheral vascular disease) (CMS/HCC) Thyroid cancer ([facility]/HCC) Well woman exam Current Outpatient Medications: acetaminophen (Tylenol 8 Hour) 650 MG ER tablet, Take by mouth., Disp: , Rfl: adalimumab (Humira) 40 MG/0.8ML Prefilled Syringe Kit prefilled syringe, 0.8 ml Subcutaneous, Disp: , Rfl: amoxicillin (Amoxil) 500 MG tablet, 4 tabs PO once 30-60 mins before procedure with food, Disp: 4 tablet, Rfl: 3 ascorbic acid (Vitamin C) 250 MG chewable tablet, Vitamin C, Disp: , Rfl: aspirin 81 MG EC tablet, Take 1 tablet by mouth in the morning., Disp: , Rfl: atorvastatin (Lipitor) 20 MG tablet, Take 1 tablet every day by oral route for 30 days., Disp: , Rfl: Bacillus Coagulans-Inulin (PROBIOTIC-PREBIOTIC PO), Probiotic, Disp: , Rfl: baclofen (Lioresal) 10 MG tablet, TAKE 1 TABLET BY MOUTH IN THE MORNING AND 2 BEFORE BEDTIME NEEDED, Disp: 270 tablet, Rfl: 2 budesonide ([facility] Budesonide) 32 MCG/ACT nasal spray, Refills(s) 0, Disp: , Rfl: calcium carbonate EX (Tums Extra Strength) 750 MG chewable tablet, Chew 300 mg., Disp: , Rfl: cephalexin (Keflex) 500 MG capsule, Take 1 capsule, by mouth, bid, 10 days, Disp: 20 capsule, Rfl: 0 cholecalciferol (Vitamin D-3) 1.25 MG (38287 UT) capsule, Take 50,000 Units by mouth 1 (one) time per week 1 capsule Orally twice a month, Disp: , Rfl: coenzyme Q-10 100 MG ER capsule, as directed Orally, Disp: , Rfl: Cranberry 500 MG chewable tablet, Chew., Disp: , Rfl: diphenhydrAMINE (BENADryl) 25 MG tablet, Take 25 mg by mouth at bedtime, Disp: , Rfl: ferrous sulfate 325 (65 Fe) MG tablet, Take 325 mg by mouth in the morning. Take with meals., Disp: , Rfl: levOCARNitine L-Tartrate (L-Carnitine) 500 MG capsule, Take 500 mg by mouth Daily, Disp: , Rfl: levothyroxine (Synthroid, Levoxyl) 125 MCG tablet, Take 1 tablet every day by oral route for 90 days., Disp: , Rfl: liothyronine (Cytomel) 5 MCG tablet, 1 (one) time each day at the same time., Disp: , Rfl: losartan-hydroCHLOROthiazide (Hyzaar) 100-25 MG tablet, Take by mouth., Disp: , Rfl: magnesium gluconate (Magonate) 500 MG tablet, Take by mouth., Disp: , Rfl: Melatonin 5 MG chewable tablet, Melatonin, Disp: , Rfl: metFORMIN (Glucophage) 500 MG tablet, Take 3 tablets every day by oral route for 90 days., Disp: , Rfl: Methylcobalamin (Methyl B-12) 500 MCG chewable tablet, See Instructions, 5 mg Chewed, Refills(s) 0, Disp: , Rfl: Mounjaro 2.5 MG/0.5ML solution pen-injector, , Disp: , Rfl: Multiple Vitamin (Multi Vitamin) tablet, 1 (one) time each day at the same time., Disp: , Rfl: [place]-3 Fatty Acids (Fish Oil) 1200 MG capsule delayed-release, Take by mouth., Disp: , Rfl: omeprazole (PriLOSEC) [address] capsule, Take 1 capsule every day by oral route for 90 days., Disp: , Rfl: ondansetron (Zofran) 8 MG tablet, Take 8 mg by mouth every 8 (eight) hours if needed for nausea, Disp: , Rfl: Tirzepatide (Mounjaro) 5 MG/0.5ML solution auto-injector, Inject 5 mg under the skin 1 (one) time per week, Disp: , Rfl: Zinc Sulfate (ZINC 15 PO), Zinc, Disp: , Rfl: Past Surgical History: Procedure Laterality Date APPENDECTOMY BLADDER SUSPENSION 2021 CERVICAL POLYPECTOMY 2007 COLONOSCOPY 2018 CYSTOSCOPY x2 EGD 2008 KNEE ARTHROSCOPY W/ MENISCAL REPAIR Right 2011 KNEE ARTHROSCOPY W/ MENISCAL REPAIR Left 2013 KNEE SURGERY Left 2014 arthroscopy MR ANGIOGRAM NECK W AND WO IV CONTRAST 10/27/2019 MR ANGIOGRAM NECK W AND WO IV CONTRAST PARTIAL HIP ARTHROPLASTY PARTIAL HYSTERECTOMY 01/22/2022 PELVIC RECON / BLADDER SLING / PARTIAL HYSTERECTOMY - DR BEVERLY THYROIDECTOMY 2002 thyroidectomy with ablation TOTAL ABDOMINAL HYSTERECTOMY 2021 TOTAL KNEE ARTHROPLASTY Right 12/11/2022 DR CÁRDENAS TOTAL KNEE ARTHROPLASTY Left 10/22/2023 DR CÁRDENAS Social History Socioeconomic History Marital status: Spouse name: Not on file Number of children: Not on file Years of education: Not on file Highest education level: Not on file Occupational History Not on file Tobacco Use Smoking status: Former Types: Cigarettes Smokeless tobacco: Never Vaping Use Vaping status: Never Used Substance and Sexual Activity Alcohol use: Yes Alcohol/week: 1.0 standard drink of alcohol Types: 1 Standard drinks or equivalent per week Comment: caffeine intake: 3-4 cups per day. Drug use: Never Sexual activity: Not on file Other Topics Concern Not on file Social History Narrative Not on file Social Drivers of Health Financial Resource Strain: Not on file Food Insecurity: Not on file Transportation Needs: Not on file Physical Activity: Not on file Stress: Not on file Social Connections: Not on file Intimate Partner Violence: Not on file Housing Stability: Not on file Subjective Patient ID: HPI Patient is 74-year-old female referred from Dermatology following Mohs resection of a skin cancer of the left glabellar area. The defect is about 1.5 cm into deep subcutaneous tissue. Review of Systems ROS The specialty specific review of systems is noncontributory except for that recorded in the intake questionnaire and /or described in the history of present illness. Objective ENT Physical Exam Physical Exam Constitutional: Appearance: Normal appearance. HENT: Head: Atraumatic. Ears: External ear shows no abnormality Bilateral ear canals are clear Tympanic membranes intact, no evidence of middle ear fluid or other pathology. Nose: External nose appears to be normal Nares patent. Septal deviation to the right No evidence of polyp, mass or pus bilaterally. Oral Cavity: No evidence of trismus Lips appear normal Dental good Tongue of normal size and configuration, floor of mouth mucosa clear. Buccal mucosa shows no evidence of ulceration, mass or other abnormality Hard palate soft palate mucosa intact with no evidence of mass, ulceration or other abnormality Uvula of normal size and configuration Oropharynx: Tonsils atrophic Posterior pharyngeal wall normal Neck: No evidence of palpable abnormality Thyroid without evidence of thyromegaly or mass. No cervical lymphadenopathy present. Cardiovascular: Rate and Rhythm: Normal rate and regular rhythm. . Skin: General: Skin is warm and dry. Neurological: General: No focal deficit present. Mental Status: alert and oriented to person, place, and time. Assessment/Plan Gia was seen today for mohs reconstruction. Diagnoses and all orders for this visit: Open facial wound, initial encounter Comments: I will be able to close this with a small island flap. Orders: - Ambulatory referral to ENT Preop testing - ECG 12 lead; Future 'The r/b of excision of skin cancer with recontruction(primary closure, skin graft or flap) were discussed with the patient. These include but are not limited to disfigurment, scarring, poor cosemetic results, difficuty with function of the organ/site involved with the resection a/o flap, bleeding, infection, of the flap, numbness, neuro/vascular injury, need for additional surgery a/o treatment, etc. The pateint has consented to proceed. documented in this encounter [facility] 06-09-2024 History of Present illness Narrative Images from the original note were not included. Mohs Surgery Location: [place] Date of biopsy: 04/12/2024 Diagnosis: Basal Cell Carcinoma All pertinent medical history, medications, and allergies were reviewed. General Exam: alert, oriented to person, place, and time, normal affect, well appearing A focused exam completed based on patient reported problems, see below: 1. Basal cell carcinoma (BCC) of glabella [place] Erythematous macule with a central depression at the biopsy site. Mohs surgery Consent obtained: written (The rationale for Mohs as well as the risks, benefits, and alternatives. The risks of infection, scarring, bleeding, prolonged wound healing, incomplete removal, allergy to anesthesia or meds, nerve injury, and recurrence were addressed.) [place] Protocol: Procedure explained and questions answered to patient or proxy's satisfaction: Yes Test results available and properly labeled: Yes Pathology report reviewed: Yes Photo or diagram used for site identification: Yes (From pt's phone) Site/side marked: Yes Anticoagulation: Is the patient taking prescription anticoagulant and/or aspirin prescribed/recommended by a physician? Yes (81 mg ASA) Was the anticoagulation regimen changed prior to Mohs? No Anesthesia: Anesthesia method: local infiltration Local anesthetic: lidocaine 1% WITH epi and sodium bicarbonate Procedure Details: Biopsy accession number: [id number] Biopsy lab: [email or web address] Date of biopsy: 04/12/2024 Frozen section biopsy performed: Yes Specimen debulked: No Pre-Op diagnosis: basal cell carcinoma BCC subtype: nodular MohsAIQ Surgical site (if tumor spans multiple areas, please select predominant area): forehead (non-eyebrow) Surgery side: midline Surgical site (from skin exam): [place] Pre-operative length (cm): 0.5 Pre-operative width (cm): 0.5 Indications for Mohs surgery: anatomic location where tissue conservation is critical Other indications for Mohs surgery: Central face Previously treated? No Mohs Appropriate Use Criteria Score: 7 Details of micrographic surgery: Mohs accession number: [id number] Micrographic Surgery Details: Post-operative length (cm): 1.4 Post-operative width (cm): 1.1 Number of Mohs stages: 3 Stage 1 Comments: The area was prepped with Betadine, draped in a sterile fashion, and infiltrated with local anesthetic. Sterile technique was used throughout the procedure. The marked area of clinical tumor with a small rim of clinically normal surrounding skin was removed using Mohs technique with beveled edges. Hash salvador were placed for orientation of the specimen. Hemostasis was achieved with electrodessication. After hemostasis, the defect was measured and recorded, a temporary sterile dressing was placed over the wound, and the patient was escorted to the waiting area. The specimen was oriented, mapped, and if necessary, divided into sections. A Mohs map was prepared. The specimen was placed in a labeled tina dish and was taken to the Mohs lab where it was chromacoded and processed. Mohs sections were prepared with serial tissue sections, stained, and evaluated by Dr. James for interpretation of deep and peripheral margins. The Mohs map was marked accordingly. Amount of lidocaine used: 1.3 cc Estimated blood loss: < 1.0 cc Defect size: 1.1 x 1.0 cm Number of blocks per stage: 1 Number of positive blocks: 1 Tumor features identified on Mohs section: basal carcinoma Tumor features identified on Mohs section comment: nodular pattern Depth of defect after stage: dermis Stage 2 Comments: The patient returned to the procedure room, the dressing was removed, the tumor area was re-prepped and draped, and anesthesia was assessed and augmented as necessary. A layer of tissue around the positive margin(s) was removed, and the tissue was oriented, mapped, and processed in an identical fashion as for Stage 1. Hemostasis was achieved and dressing placed as in Stage 1. The patient was escorted to the waiting area. As with Stage 1, Mohs sections were prepared with serial tissue sections, stained, and evaluated by Dr. James for interpretation of deep and peripheral margins. The Mohs map was updated. Assistants: Anthony Ortiz LPN Amount of lidocaine used: 1.0 cc Estimated blood loss: < 1.0 cc Defect size: 1.1 x 1.0 cm Number of blocks: 1 Number of positive blocks: 1 Tumor features identified on Mohs section: basal carcinoma Tumor features identified on Mohs section comment: nodular pattern Depth of defect after stage: dermis Stage 3 Comments: The patient returned to the procedure room, the dressing was removed, the tumor area was re-prepped and draped, and anesthesia was assessed and augmented as necessary. A layer of tissue around the positive margin(s) was removed, and the tissue was oriented, mapped, and processed in an identical fashion as for Stage 1. Hemostasis was achieved and dressing placed as in Stage 1. The patient was escorted to the waiting area. As with Stage 1, Mohs sections were prepared with serial tissue sections, stained, and evaluated by Dr. James for interpretation of deep and peripheral margins. The Mohs map was updated. Assistants: Raoul Alves LPN Amount of lidocaine used: 1.5 cc Estimated blood loss: < 1.0 cc Defect size: 1.4 x 1.1 cm Number of blocks: 1 Number of positive blocks: 0. Tumor free margins were obtained and the Mohs procedure was considered complete. Tumor features identified on Mohs section: no tumor identified Depth of defect after stage: subcutaneous fat Patient tolerance of procedure: tolerated well, no immediate complications Reconstruction: Was the defect reconstructed? Yes Was reconstruction performed by the same [facility] surgeon? No If no, what is the specialty of the surgeon who did the reconstruction? ENT facial plastics When was reconstruction performed? different day Antibiotics: Were antibiotics given on the day of surgery?: No When were antibiotics given? post-operative Indication for post-operative antibiotics: long duration of procedure cephalexin (Keflex) 500 MG capsule Take 1 capsule, by mouth, bid, 10 days [facility] Post Operative Type of repair: Referred for repair to Janeth Aguilar DO Wound Care: A pressure dressing was placed on the surgical wound. Post-operative instructions were given in writing and were reviewed with the patient. A follow-up appointment was made, and instructions were given to follow-up sooner if necessary. Related Procedures Ambulatory referral to ENT Next visit: 12/13/2024 documented in this encounter [facility] 05-26-2024 Note Nurse Consultation N ote Reason for Visit Pt here today for lab draw Assessment/Plan 1. Wellness examination (Z00.00: Encounter for general adult medical examination without abnormal findings) Medications acetaminophen 650 mg oral tablet, extended release, Oral, q8hr aspirin 81 mg Oral EC Tab, Oral, Daily atorvastatin 20 mg Tab, 20 mg= 1 tab(s), Oral, Daily, 3 refills BACLOFEN 10 MG TABLET, 0 calcium chew CoQ10, Oral, Daily cranberry Ferrex-150 oral capsule, 150 mg= 1 cap(s), Oral, Daily Fish Oil, 1200 mg, Oral, Daily Humira 40 mg/0.8 mL subcutaneous kit, 40 mg= 0.8 mL, SubCutaneous, q2wk hydrochlorothiazide-losartan 25 mg-100 mg Tab, See Instructions, 3 refills Iron 100 Plus, 1 tab(s), Oral, Daily levothyroxine 125 mcg (0.125 mg) Tab, 125 mcg= 1 tab(s), Oral, Daily, 1 refills liothyronine 5 mcg Tab, 5 mcg= 1 tab(s), Oral, Daily, 4 refills magnesium gluconate 500 mg oral tablet, Oral, BID melatonin, Once a day (at bedtime) metformin 500 mg ER Tab, 500 mg= 1 tab(s), Oral, TID Methyl B-12, See Instructions Kaylee 2.5 mg/0.5 mL subcutaneous solution, 2.5 mg, SubCutaneous, qWeek omeprazole 20 mg Cap-, See Instructions ondansetron 8 mg Tab, 8 mg= 1 tab(s), Oral, q8hr probiotic with prebiotic Vitamin C, Daily Vitamin D3, 50 mcg, Oral, Thursday Zinc, Oral, Daily Allergies Bactrim DS (Rash) Percocet (Hallucinations) Immunizations Vaccine Date Status Comments pneumococcal 20-valent conjugate vaccine 04/28/2024 Recorded influenza virus vaccine, inactivated 04/28/2024 Recorded influenza virus vaccine, inactivated 04/21/2022 Recorded SARS-CoV-2 (COVID-19) [id number] 04/21/2022 Recorded influenza virus vaccine, inactivated 03/15/2021 Recorded SARS-CoV-2 (COVID-19) mRNA [id number] vax 03/15/2021 Recorded 2022-09-17: [id number] SARS-CoV-2 (COVID-19) mRNA BNT-162b2 vax 08/08/2020 Given SARS-CoV-2 (COVID-19) mRNA BNT-162b2 vax 07/11/2020 Given zoster vaccine, inactivated 07/01/2019 Recorded zoster vaccine, inactivated 04/30/2019 Recorded influenza virus vaccine, inactivated 04/30/2019 Recorded [facility] 05-16-2024 Note Patient Education Cardiovascular Hypertension, Adult Hypertension is another name for high blood pressure. High blood pressure forces your heart to work harder to pump blood. This can cause problems over time. There are two numbers in a blood pressure reading. There is a top number (systolic) over a bottom number (diastolic). It is best to have a blood pressure that is below 120/80. What are the causes? The cause of this condition is not known. Some other conditions can lead to high blood pressure. What increases the risk? Some lifestyle factors can make you more likely to develop high blood pressure: ??? Smoking. ??? Not getting enough exercise or physical activity. ??? Being overweight. ??? Having too much fat, sugar, calories, or salt (sodium) in your diet. ??? Drinking too much alcohol. Other risk factors include: ??? Having any of these conditions: ? Heart disease. ? Diabetes. ? High cholesterol. ? Kidney disease. ? Obstructive sleep apnea. ??? Having a family history of high blood pressure and high cholesterol. ??? Age. The risk increases with age. ??? Stress. What are the signs or symptoms? High blood pressure may not cause symptoms. Very high blood pressure (hypertensive crisis) may cause: ??? Headache. ??? Fast or uneven heartbeats (palpitations). ??? Shortness of breath. ??? Nosebleed. ??? Vomiting or feeling like you may vomit (nauseous). ??? Changes in how you see. ??? Very bad chest pain. ??? Feeling dizzy. ??? Seizures. How is this treated? This condition is treated by making healthy lifestyle changes, such as: ? Eating healthy foods. ? Exercising more. ? Drinking less alcohol. ??? Your doctor may prescribe medicine if lifestyle changes do not help enough and if: ? Your top number is above 130. ? Your bottom number is above 80. ??? Your personal target blood pressure may vary. Follow these instructions at home: Eating and drinking ??? If told, follow the DASH eating plan. To follow this plan: ? Fill one half of your plate at each meal with fruits and vegetables. ? Fill one fourth of your plate at each meal with whole grains. Whole grains include whole-wheat pasta, brown rice, and whole-grain bread. ? Eat or drink low-fat dairy products, such as skim milk or low-fat yogurt. ? Fill one fourth of your plate at each meal with low-fat (lean) proteins. Low-fat proteins include fish, chicken without skin, eggs, beans, and tofu. ? Avoid fatty meat, cured and processed meat, or chicken with skin. ? Avoid pre-made or processed food. ??? Limit the amount of salt in your diet to less than 1,500 mg each day. ??? Do not drink alcohol if: ? Your doctor tells you not to drink. ? You are , may be , or are planning to become . ??? If you drink alcohol: ? Limit how much you have to: ? 0?1 drink a day for women. ? 0?2 drinks a day for men. ? Know how much alcohol is in your drink. In the [place] one drink equals one 12 oz bottle of beer (355 mL), one 5 oz glass of wine (148 mL), or one 1? oz glass of hard liquor (44 mL). Lifestyle ??? Work with your doctor to stay at a healthy weight or to lose weight. Ask your doctor what the best weight is for you. ??? Get at least 30 minutes of exercise that causes your heart to beat faster (aerobic exercise) most days of the week. This may include walking, swimming, or biking. ??? Get at least 30 minutes of exercise that strengthens your muscles (resistance exercise) at least 3 days a week. This may include lifting weights or doing Pilates. ??? Do not smoke or use any products that contain nicotine or tobacco. If you need help quitting, ask your doctor. ??? Check your blood pressure at home as told by your doctor. ??? Keep all follow-up visits. Medicines ??? Take stjc-zih-nmzlhgs and prescription medicines only as told by your doctor. Follow directions carefully. ??? Do not skip doses of blood pressure medicine. The medicine does not work as well if you skip doses. Skipping doses also puts you at risk for problems. ??? Ask your doctor about side effects or reactions to medicines that you should watch for. Contact a doctor if: ??? You think you are having a reaction to the medicine you are taking. ??? You have headaches that keep coming back. ??? You feel dizzy. ??? You have swelling in your ankles. ??? You have trouble with your vision. Get help right away if: ??? You get a very bad headache. ??? You start to feel mixed up (confused). ??? You feel weak or numb. ??? You feel faint. ??? You have very bad pain in your: ? Chest. ? Belly (abdomen). ??? You vomit more than once. ??? You have trouble breathing. These symptoms may be an emergency. Get help right away. Call 911. ??? Do not wait to see if the symptoms will go away. ??? Do not drive yourself to the hospital. Summary ??? Hypertension is a (more content not included)... [facility] 04-12-2024 History of Present illness Narrative Lesions: Location: nose and chin Duration: year Quality: itchy at times, tender to the touch Modifying factors: aggravated by picking Associated symptoms: non-healing Treatments: none New patient All pertinent medical history, medications, and allergies were reviewed. General Exam: alert, oriented to person, place, and time, normal affect, well appearing Accompanied by spouse A focused exam completed based on patient reported problems, see below: 1. Melanocytic nevi of face Mid Lower Cutaneous Lip Symmetric skin colored papule Counseled regarding these benign growths. Rarely, a nevus can develop into malignant melanoma, so any changing nevi should be promptly re-evaluated. 2. Neoplasm of unspecified behavior of bone, soft tissue, and skin Glabella Blue Bell pearly papule Lesion biopsy Type of biopsy: tangential Informed consent: discussed and consent obtained Informed consent comment: The risks and benefits of the biopsy were discussed. Risks include but are not limited to bleeding, infection, scarring, pain, and nerve damage. An opportunity to ask questions prior to the procedure was permitted and all questions were answered. Patient was prepped and draped in usual sterile fashion: area cleansed with alcohol. Anesthesia: the lesion was anesthetized in a standard fashion Anesthetic: 1% lidocaine w/ epinephrine 1-100,000 buffered w/ 8.4% NaHCO3 Instrument used: DermaBlade Hemostasis achieved with: electrodesiccation Outcome: patient tolerated procedure well Outcome comment: The specimen was placed in a prelabeled formalin container to be sent for pathology Post-procedure details: sterile dressing applied and wound care instructions given Post-procedure details comment: Emphasized need to contact clinic for any signs of infection, uncontrollable bleeding, or complications. Dressing type: bandage Additional details: Photo taken Amount of lidocaine used: 0.5 cc Specimen A - Dermatopathology exam Differential Diagnosis: BCC vs Desmoplastic Trichilemmoma Check Margins: No Size of lesion: 0.5 x 0.5 cm Next Visit: pending biopsy results documented in this encounter [facility] 02-18-2024 Hospital Discharge instructions Patient Education 02/18/2024 13:24:16 Kidney Stones, Zage-wa-Ztnh Kidney Stones Kidney stones are rock-like masses that form inside of the kidneys. Kidneys are organs that make pee (urine). A kidney stone may move into other parts of the urinary tract, including: The tubes that connect the kidneys to the bladder (ureters). The bladder. The tube that carries urine out of the body (urethra). Kidney stones can cause very bad pain and can block the flow of pee. The stone usually leaves your body through your pee. A doctor may need to take out the stone. What are the causes? Kidney stones may be caused by: Too much calcium in the body. This may be caused by too much parathyroid hormone in the blood. Uric acid crystals in the bladder. The body makes uric acid when you eat certain foods. Narrowing of one or both of the ureters. A kidney blockage that you were born with. Past surgery on the kidney or the ureters. What increases the risk? You are more likely to develop this condition if: You have had a kidney stone in the past. Other people in your family have had kidney stones. You do not drink enough water. You eat a diet that is high in protein, salt (sodium), or sugar. You are very overweight (obese). What are the signs or symptoms? Symptoms of a kidney stone may include: Pain in the side of the belly, right below the ribs. Pain usually spreads to the groin. Needing to pee often or right away. Pain when peeing. Blood in your pee. Feeling like you may vomit (nauseous). Vomiting. Fever and chills. How is this treated? Treatment depends on the size, location, and makeup of the kidney stones. The stones will often pass out of the body when you pee. You may need to: Drink more fluid to help pass the stone. ?In some cases, you may be given fluids through an IV tube at the hospital. Take medicine for pain. Change your diet to help keep kidney stones from coming back. Sometimes, you may need: A procedure to break up kidney stones using a beam of light (laser) or shock waves. Surgery to remove the kidney stones. Follow these instructions at home: Medicines Take briz-zel-vtwafpa and prescription medicines only as told by your doctor. Ask your doctor if the medicine prescribed to you requires you to avoid driving or using machinery. Eating and drinking Drink enough fluid to keep your pee pale yellow. ?You may be told to drink at least 8 10 glasses of water each day. This will help you pass the stone. If told by your doctor, change your diet. You may be told to: ?Limit how much salt you eat. ?Eat more fruits and vegetables. ?Limit how much meat, poultry, fish, and eggs you eat. Follow instructions from your doctor about what you may eat and drink. General instructions Collect pee samples as told by your doctor. You may need to collect a pee sample: ?24 hours after a stone comes out. ?8 12 weeks after a stone comes out, and every 6 12 months after that. Strain your pee every time you pee. Use the strainer that your doctor recommends. Do not throw out the stone. Keep it so that it can be tested by your doctor. Keep all follow-up visits. You may need X-rays and ultrasounds to make sure the stone has come out. How is this prevented? To prevent another kidney stone: Drink enough fluid to keep your pee pale yellow. This is the best way to prevent kidney stones. Eat healthy foods. Avoid certain foods as told by your doctor. You may be told to eat less protein. Stay at a healthy weight. Where to find more information National Kidney Foundation (NKF): kidney.org Urology Care Foundation (UCF): urologyhealth.org Contact a doctor if: You have pain that gets worse or does not get better with medicine. Get help right away if: You have a fever or chills. You get very bad pain. You get new pain in your belly. You faint. You cannot pee. This information is not intended to replace advice given to you by your health care provider. Make sure you discuss any questions you have with your health care provider. Document Revised: 12/26/2022 Document Reviewed: 12/26/2022 [employer] Patient Education 2023 [employer]. Follow Up Care 08/17/2023 12:32:41 With:EDWINA MOSLEY, Bertha Vu, URL Address: [address] [place] [id number] When:1 year Comments:LASHONDA & TIM granger [facility] 02-18-2024 Note Patient Education Urology Kidney Stones Kidney stones are rock-like masses that form inside of the kidneys. Kidneys are organs that make pee (urine). A kidney stone may move into other parts of the urinary tract, including: ? The tubes that connect the kidneys to the bladder (ureters). ? The bladder. ? The tube that carries urine out of the body (urethra). Kidney stones can cause very bad pain and can block the flow of pee. The stone usually leaves your body through your pee. A doctor may need to take out the stone. What are the causes? Kidney stones may be caused by: ? Too much calcium in the body. This may be caused by too much parathyroid hormone in the blood. ? Uric acid crystals in the bladder. The body makes uric acid when you eat certain foods. ? Narrowing of one or both of the ureters. ? A kidney blockage that you were born with. ? Past surgery on the kidney or the ureters. What increases the risk? You are more likely to develop this condition if: ? You have had a kidney stone in the past. ? Other people in your family have had kidney stones. ? You do not drink enough water. ? You eat a diet that is high in protein, salt (sodium), or sugar. ? You are very overweight (obese). What are the signs or symptoms? Symptoms of a kidney stone may include: ? Pain in the side of the belly, right below the ribs. Pain usually spreads to the groin. ? Needing to pee often or right away. ? Pain when peeing. ? Blood in your pee. ? Feeling like you may vomit (nauseous). ? Vomiting. ? Fever and chills. How is this treated? Treatment depends on the size, location, and makeup of the kidney stones. The stones will often pass out of the body when you pee. You may need to: ? Drink more fluid to help pass the stone. ? In some cases, you may be given fluids through an IV tube at the hospital. ? Take medicine for pain. ? Change your diet to help keep kidney stones from coming back. Sometimes, you may need: ? A procedure to break up kidney stones using a beam of light (laser) or shock waves. ? Surgery to remove the kidney stones. Follow these instructions at home: Medicines ? Take vjbt-woh-wratigs and prescription medicines only as told by your doctor. ? Ask your doctor if the medicine prescribed to you requires you to avoid driving or using machinery. Eating and drinking ? Drink enough fluid to keep your pee pale yellow. ? You may be told to drink at least 8?10 glasses of water each day. This will help you pass the stone. ? If told by your doctor, change your diet. You may be told to: ? Limit how much salt you eat. ? Eat more fruits and vegetables. ? Limit how much meat, poultry, fish, and eggs you eat. ? Follow instructions from your doctor about what you may eat and drink. General instructions ? Collect pee samples as told by your doctor. You may need to collect a pee sample: ? 24 hours after a stone comes out. ? 8?12 weeks after a stone comes out, and every 6?12 months after that. ? Strain your pee every time you pee. Use the strainer that your doctor recommends. ? Do not throw out the stone. Keep it so that it can be tested by your doctor. ? Keep all follow-up visits. You may need X-rays and ultrasounds to make sure the stone has come out. How is this prevented? To prevent another kidney stone: ? Drink enough fluid to keep your pee pale yellow. This is the best way to prevent kidney stones. ? Eat healthy foods. ? Avoid certain foods as told by your doctor. You may be told to eat less protein. ? Stay at a healthy weight. Where to find more information ? National Kidney Foundation (NKF): kidney.org ? Urology Care Foundation (UCF): urologyhealth.org Contact a doctor if: ? You have pain that gets worse or does not get better with medicine. Get help right away if: ? You have a fever or chills. ? You get very bad pain. ? You get new pain in your belly. ? You faint. ? You cannot pee. This information is not intended to replace advice given to you by your health care provider. Make sure you discuss any questions you have with your health care provider. Document Revised: 12/26/2022 Document Reviewed: 12/26/2022 [employer] Patient Education ? 2023 [employer] [facility] 08-17-2023 Hospital Discharge instructions Patient Education 08/17/2023 12:31:38 Acute Urinary Retention, Female Acute Urinary Retention, Female Acute urinary retention is a condition in which a person is unable to pass urine or can only pass a little urine. This condition can happen suddenly and last for a short time. If left untreated, it can become long-term (chronic) and result in kidney damage or other serious complications. What are the causes? This condition may be caused by: Obstruction or narrowing of the tube that drains the bladder (urethra). This may be caused by surgery, problems with nearby organs, or injury to the bladder or urethra. Problems with the nerves in the bladder. Pelvic organ prolapse. Tumors in the area of the pelvis, bladder, or urethra. Vaginal childbirth. Bladder or urinary tract infection. Constipation. Certain medicines. What increases the risk? This condition is more likely to develop in women over age 50. Other chronic health conditions can increase the risk of acute urinary retention. These include: Diseases such as multiple sclerosis. Spinal cord injuries. Diabetes. Degenerative cognitive conditions, such as delirium or dementia. Psychological conditions. A woman may hold her urine due to trauma or because she does not want to use the bathroom. History of preexisting urinary retention. History of prior pelvic surgery, incontinence surgery, or radical pelvic surgery. What are the signs or symptoms? Symptoms of this condition include: Trouble urinating. Pain in the lower abdomen. How is this diagnosed? This condition is diagnosed based on a physical exam and your medical history. You may also have other tests, including: An ultrasound of the bladder or kidneys or both. Blood tests. A urine analysis. Additional tests may be needed, such as a CT scan, MRI, and kidney or bladder function tests. How is this treated? Treatment for this condition may include: Medicines. Placing a thin, sterile tube (catheter) into the bladder to drain urine out of the body. This is called an indwelling urinary catheter. After it is inserted, the catheter is held in place with a small balloon that is filled with sterile water. Urine drains from the catheter into a collection bag outside of the body. Behavioral therapy. Treatment for other conditions. If needed, you may be treated in the hospital for kidney function problems or to manage other complications. Follow these instructions at home: Medicines Take lzuo-imk-jgqbjur and prescription medicines only as told by your health care provider. Avoid certain medicines, such as decongestants, antihistamines, and some prescription medicines. Do not take any medicine unless your health care provider approves. If you were prescribed an antibiotic medicine, take it as told by your health care provider. Do not stop using the antibiotic even if you start to feel better. General instructions Do not use any products that contain nicotine or tobacco. These products include cigarettes, chewing tobacco, and vaping devices, such as e-cigarettes. If you need help quitting, ask your health care provider. Drink enough fluid to keep your urine pale yellow. If you have an indwelling urinary catheter, follow the instructions from your health care provider. Monitor any changes in your symptoms. Tell your health care provider about any changes. If instructed, monitor your blood pressure at home. Report changes as told by your health care provider. Keep all follow-up visits. This is important. Contact a health care provider if: You have uncomfortable bladder contractions that you cannot control (spasms). You leak urine with the spasms. Get help right away if: You have chills or a fever. You have blood in your urine. You have a catheter and the following happens: ?Your catheter stops draining urine. ?Your catheter falls out. Summary Acute urinary retention is a condition in which a person is unable to pass urine or can only pass a little urine. If left untreated, this can result in kidney damage or other serious complications. One cause of this condition may be obstruction or narrowing of the tube that drains the bladder (urethra). This may be caused by surgery, problems with nearby organs, or injury to the bladder or urethra. Treatment may include medicines and placement of an indwelling urinary catheter. Monitor any changes in your symptoms. Tell your health care provider about any changes. This information is not intended to replace advice given to you by your health care provider. Make sure you discuss any questions you have with your health care provider. Document Revised: 01/23/2021 Document Reviewed: 01/23/2021 [employer] Patient Education 2022 [employer]. Follow Up Care 02/13/2023 10:34:47 With:EDWINA MOSLEY, Bertha Vu, URL Address: [facility] [address] , [place] [id number] When: Unknown Comments:6 mos w/ LASHONDA and TIM, nurse visit for PVR in 1 month [facility] 03-31-2023 Procedure note [facility] 03-12-2023 Procedure note [facility] 02-13-2023 Hospital Discharge instructions Patient Education 02/13/2023 10:30:11 Urinary Tract Infection, Adult, Geew-ld-Lbqv Urinary Tract Infection, Adult A urinary tract infection (UTI) is an infection of any part of the urinary tract. The urinary tract includes: The kidneys. The ureters. The bladder. The urethra. These organs make, store, and get rid of pee (urine) in the body. What are the causes? This infection is caused by germs (bacteria) in your genital area. These germs grow and cause swelling (inflammation) of your urinary tract. What increases the risk? The following factors may make you more likely to develop this condition: Using a small, thin tube (catheter) to drain pee. Not being able to control when you pee or poop (incontinence). Being female. If you are female, these things can increase the risk: ?Using these methods to prevent : ?A medicine that kills sperm (spermicide). ?A device that blocks sperm (diaphragm). ?Having low levels of a female hormone (estrogen). ?Being . You are more likely to develop this condition if: You have genes that add to your risk. You are sexually active. You take antibiotic medicines. You have trouble peeing because of: ?A prostate that is bigger than normal, if you are male. ?A blockage in the part of your body that drains pee from the bladder. ?A kidney stone. ?A nerve condition that affects your bladder. ?Not getting enough to drink. ?Not peeing often enough. You have other conditions, such as: ?Diabetes. ?A weak disease-fighting system (immune system). ?Sickle cell disease. ?Gout. ?Injury of the spine. What are the signs or symptoms? Symptoms of this condition include: Needing to pee right away. Peeing small amounts often. Pain or burning when peeing. Blood in the pee. Pee that smells bad or not like normal. Trouble peeing. Pee that is cloudy. Fluid coming from the vagina, if you are female. Pain in the belly or lower back. Other symptoms include: Vomiting. Not feeling hungry. Feeling mixed up (confused). This may be the first symptom in older adults. Being tired and grouchy (irritable). A fever. Watery poop (diarrhea). How is this treated? Taking antibiotic medicine. Taking other medicines. Drinking enough water. In some cases, you may need to see a specialist. Follow these instructions at home: Medicines Take vpmd-lcs-fwniynv and prescription medicines only as told by your doctor. If you were prescribed an antibiotic medicine, take it as told by your doctor. Do not stop taking it even if you start to feel better. General instructions Make sure you: ?Pee until your bladder is empty. ?Do not hold pee for a long time. ?Empty your bladder after sex. ?Wipe from front to back after peeing or pooping if you are a female. Use each tissue one time when you wipe. Drink enough fluid to keep your pee pale yellow. Keep all follow-up visits. Contact a doctor if: You do not get better after 1 2 days. Your symptoms go away and then come back. Get help right away if: You have very bad back pain. You have very bad pain in your lower belly. You have a fever. You have chills. You feeling like you will vomit or you vomit. Summary A urinary tract infection (UTI) is an infection of any part of the urinary tract. This condition is caused by germs in your genital area. There are many risk factors for a UTI. Treatment includes antibiotic medicines. Drink enough fluid to keep your pee pale yellow. This information is not intended to replace advice given to you by your health care provider. Make sure you discuss any questions you have with your health care provider. Document Revised: 12/14/2020 Document Reviewed: 12/14/2020 [employer] Patient Education 2022 [employer]. 02/13/2023 10:30:09 Dietary Guidelines to Help Prevent Kidney Stones Dietary Guidelines to Help Prevent Kidney Stones Kidney stones are deposits of minerals and salts that form inside your kidneys. Your risk of developing kidney stones may be greater depending on your diet, your lifestyle, the medicines you take, and whether you have certain medical conditions. Most people can lower their chances of developing kidney stones by following the instructions below. Your dietitian may give you more specific instructions depending on your overall health and the type of kidney stones you tend to develop. What are tips for following this plan? Reading food labels Choose foods with no salt added or low-salt labels. Limit your salt (sodium) intake to less than 1,500 mg a day. Choose foods with calcium for each meal and snack. Try to eat about 300 mg of calcium at each meal. Foods that contain 200 500 mg of calcium a serving include: ?8 oz (237 mL) of milk, yysrwtx-rrwulgnsdlmf-dhlnf milk, and calcium-fortifiedfruit juice. Calcium-fortified means that calcium has been added to these drinks. ?8 oz (237 mL) of kefir, yogurt, and soy yogurt. ?4 oz (114 g) of tofu. ?1 oz (28 g) of cheese. ?1 cup (150 g) of dried figs. ?1 cup (91 g) of cooked broccoli. ?One 3 oz (85 g) can of sardines or mackerel. Most people need 1,000 1,500 mg of calcium a day. Talk to your dietitian about how much calcium is recommended for you. Shopping Buy plenty of fresh fruits and vegetables. Most people do not need to avoid fruits and vegetables, even if these foods contain nutrients that may contribute to kidney stones. When shopping for convenience foods, choose: ?Whole pieces of fruit. ?Pre-made salads with dressing on the side. ?Low-fat fruit and yogurt smoothies. Avoid buying frozen meals or prepared deli foods. These can be high in sodium. Look for foods with live cultures, such as yogurt and kefir. Choose high-fiber grains, such as whole-wheat breads, oat bran, and wheat cereals. Cooking Do not add salt to food when cooking. Place a salt shaker on the table and allow each person to add his or her own salt to taste. Use vegetable protein, such as beans, textured vegetable protein (TVP), or tofu, instead of meat in pasta, casseroles, and soups. Meal planning Eat less salt, if told by your dietitian. To do this: ?Avoid eating processed or pre-made food. ?Avoid eating fast food. Eat less animal protein, including cheese, meat, poultry, or fish, if told by your dietitian. To do this: ?Limit the number of times you have meat, poultry, fish, or cheese each week. Eat a diet free of meat at least 2 days a week. ?Eat only one serving each day of meat, poultry, fish, or seafood. ?When you prepare animal protein, cut pieces into small portion sizes. For most meat and fish, one serving is about the size of the palm of your hand. Eat at least five servings of fresh fruits and vegetables each day. To do this: ?Keep fruits and vegetables on hand for snacks. ?Eat one piece of fruit or a handful of berries with breakfast. ?Have a salad and fruit at lunch. ?Have two kinds of vegetables at dinner. Limit foods that are high in a substance called oxalate. These include: ?Spinach (cooked), rhubarb, beets, sweet potatoes, and Russian chard. ?Peanuts. ?Potato chips, kazakh fries, and baked potatoes with skin on. ?Nuts and nut products. ?Chocolate. If you regularly take a diuretic medicine, make sure to eat at least 1 or 2 servings of fruits or vegetables that are high in potassium each day. These include: ?Avocado. ?Banana. ?Upperglade, prune, carrot, or tomato juice. ?Baked potato. ?Cabbage. ?Beans and split peas. Lifestyle Drink enough fluid to keep your urine pale yellow. This is the most important thing you can do. Spread your fluid intake throughout the day. If you drink alcohol: ?Limit how much you use to: ?0 1 drink a day for women who are not . ?0 2 drinks a day for men. ?Be aware of how much alcohol is in your drink. In the [place] one drink equals one 12 oz bottle of beer (355 mL), one 5 oz glass of wine (148 mL), or one 1 oz glass of hard liquor (44 mL). Lose weight if told by your health care provider. Work with your dietitian to find an eating plan and weight loss strategies that work best for you. General information Talk to your health care provider and dietitian about taking daily supplements. You may be told the following depending on your health and the cause of your kidney stones: ?Not to take supplements with vitamin C. ?To take a calcium supplement. ?To take a daily probiotic supplement. ?To take other supplements such as magnesium, fish oil, or vitamin B6. Take sakh-bzh-vddkmcp and prescription medicines only as told by your health care provider. These include supplements. What foods should I limit? Limit your intake of the following foods, or eat them as told by your dietitian. Vegetables Spinach. Rhubarb. Beets. Canned vegetables. Pickles. Olives. Baked potatoes with skin. Grains Wheat bran. Baked goods. Salted crackers. Cereals high in sugar. Meats and other proteins Nuts. Nut butters. Large portions of meat, poultry, or fish. Salted, precooked, or cured meats, such as sausages, meat loaves, and hot dogs. Dairy Cheese. Beverages Regular soft drinks. Regular vegetable juice. Seasonings and condiments Seasoning blends with salt. Salad dressings. Soy sauce. Ketchup. Barbecue sauce. Other foods Canned soups. Canned pasta sauce. Casseroles. Pizza. Lasagna. Frozen meals. Potato chips. Gambian fries. The items listed above may not be a complete list of foods and beverages you should limit. Contact a dietitian for more information. What foods should I avoid? Talk to your dietitian about specific foods you should avoid based on the type of kidney stones you have and your overall health. Fruits Grapefruit. The item listed above may not be a complete list of foods and beverages you should avoid. Contact a dietitian for more information. Summary Kidney stones are deposits of minerals and salts that form inside your kidneys. You can lower your risk of kidney stones by making changes to your diet. The most important thing you can do is drink enough fluid. Drink enough fluid to keep your urine pale yellow. Talk to your dietitian about how much calcium you should have each day, and eat less salt and animal protein as told by your dietitian. This information is not intended to replace advice given to you by your health care provider. Make sure you discuss any questions you have with your health care provider. Document Revised: 01/13/2022 Document Reviewed: 01/13/2022 [employer] Patient Education 2022 [employer]. Follow Up Care 12/05/2022 12:34:13 With:EDWINA MOSLEY, Bertha Vu, URL Address: [facility] [address] , [place] [address]- When:Within 6 Month(s) Comments:w/PVR [facility] 07-29-2022 Hospital Discharge instructions Patient Education 07/29/2022 09:47:03 [facility] - Cystoscopy Discharge Instructions (CUSTOM) Cystoscopy Voiding after the procedure: there may be some pain, burning, urgency, frequency and blood tinged urine following the procedure. These symptoms usually resolve within 2-5 days. Drink the amount of fluid it takes to keep the urine pink to yellow or clear in color. Drinking enough water and fluids will help to ease any discomfort after your procedure. If you are having problems that seem out of the ordinary, please call. If unable to contact your physician and you feel it is an emergency, go to the nearest emergency room or call 911 Diet you may resume your normal diet. Activity you may resume your normal activities Call if you have a fever over 100 degrees. Follow Up Care 07/14/2022 12:52:54 With:Bertha BLAND Address: [facility] [address], [place] [facility] [place] [address]- Business (1) When:11/28/2022 09:46:34 [facility] 07-24-2022 Evaluation note Encounter Date Diagnosis Assessment Notes Jul, Crohns disease (ICD-10 - K50.90) Continue Humira as directed [employer] Other 05-03-2022 Evaluation note* Encounter Date Diagnosis Assessment Notes Treatment Notes Treatment Clinical Notes September, Ulcerative colitis (ICD-10 - K51.90) [facility] Other 04-20-2022 History general Narrative - Reported* Type Description Date Medical History thyroid cancer Medical History thyroidectomy Medical History appendectomy Medical History inflammation of colon Medical History hypertension Medical History STROKE 09/04 Surgical History appendectomy Surgical History thyroidectomy 2001 Hospitalization History see above [facility] Other 11-16-2021 Evaluation note* Encounter Date Diagnosis Assessment Notes Treatment Notes Treatment Clinical Notes Mar, Ulcerative colitis (ICD-10 - K51.90) Continue Humira - start citrate free [facility] Other Evaluation + Plan note Future Appointments Appointment Date:07/22/2022 03:00:00 PM Scheduled Provider: Location:[facility] Appointment Type:Urology CALL PAT FT Appointment Date:07/29/2022 08:00:00 AM Scheduled Provider: Location:[facility] Appointment Type:Urology FT Appointment Date:07/29/2022 09:15:00 AM Scheduled Provider: Location:[facility] Appointment Type:Urology FT Diagnostic Tests Pending * Urine [facility] App[facility]ments Appointment Date:11/17/2022 11:45:00 AM Scheduled Provider:Bertha BLAND MD Location:[facility] Appointment Type:URO Office Visit [facility] Evaluation + Plan note Future Appointments Appointment Date:11/17/2022 11:45:00 AM Scheduled Provider:Bertha BLAND MD Location:[facility] Appointment Type:URO Office Visit Diagnostic Tests Pending * Urine Culture [facility]ments Appointment Date:12/05/2022 11:00:00 AM Scheduled Provider:Bertha BLAND MD [facility] Type[facility] Office Visit Diagnostic Tests Pending * Urine Culture [facility] App[facility]ments Appointment Date:12/05/2022 11:00:00 AM Scheduled Provider:Bertha BLAND MD [facility] Appoint[facility] Type:URO Office Visit [facility] evaluation + Plan note Future Appointments Appointment Date:05/13/2023 02:00:00 PM Scheduled Provider: [facility] Type[facility]FM Medicare Wellness Subsequent Appointment Date:08/17/2023 10:45:00 AM Scheduled Provider:Bertha BLAND MD [facility] Appointment Type:URO Office Visit [facility] evaluation + Plan note Future Appointments Appointment Date:08/17/2023 10:45:00 AM Scheduled Provider:Bertha BLAND MD Location:[facility] Appointment Type:URO Office Visit Appointment Date:05/13/2024 01:00:00 PM Scheduled Provider[facility] App[facility]ments Appointment Date:09/14/2023 10:00:00 AM Scheduled Provider: Location:[facility] Appointment Type:URO Nurse Visit Appointment Date:02/19/2024 10:45:00 AM Scheduled Provider:Bertha BLAND MD Location:[facility] Appointment Type:URO Office Visit Appointment Date:05/13/2024 01:00:00 PM Scheduled Provider: [facility] Type:FM Medicare Wellness Subsequent [facility] evaluation + Plan note Future Appointments Appointment Date:10/05/2023 11:20:00 AM Scheduled Provider:Bambi Reynolds [facility] App[facility] Type:FM Open Appointment Date:02/19/2024 10:45:00 AM Scheduled Provider:[facility]AND [facility] Type:[facility]O Office Visit Appointment Date:05/05/2024 01:00:00 PM Scheduled Provider: [facility] Type:FM Medicare Wellness Subsequent [facility] evaluation + Plan note Future Appointments Appointment Date:02/19/2024 10:45:00 AM Scheduled Provider:Bertha BLAND MD Location:[facility] Appointment Type:URO Office Visit Appointment Date:05/05/2024 01:00:00 PM Scheduled Provider: [facility] Type:FM Medicare Wellness Subsequent Diagnostic Tests Pending * Urine Culture 01/21/24 [facility] Evaluation + Plan note Future Appointments Appointment Date:05/05/2024 01:00:00 PM Scheduled Provider: [facility] Type:FM Medicare Wellness Subsequent Appointment Date:02/17/2025 11:00:00 AM Scheduled Provider:Bertha BLAND MD [facility] Appointment Type:URO Office Visit [facility] evaluation + Plan note Future Appointments Appointment Date:08/29/2024 10:00:00 AM Scheduled Provider:Bambi Reynolds Location:[facility] Appointment Type:FM Open Appointment Date:02/17/2025 11:00:00 AM Scheduled Provider:Bertha BLAND MD Location[facility] [place] Appointment Type:URO Office Visit Appointment Date:05/16/2025 01:00:00 PM Scheduled Provider: Location:[facility] Appointment Type:FM Medicare Wellness Subsequent [facility] Evalucrkth noteNo assessment information available [facility] Work Phone: evaluation noteNo InformationNort [place] Other Evaluation note* Diagnosis Onset Date Resolution Status Crohn disease acute [facility] Work Phone: Evaluation note* Diagnosis Melanocytic nevi of face- Primary Neoplasm of unspecified behavior of bone, soft tissue, and skin [facility] Diagnosis Cerebrovascular accident (CVA), unspecified mechanism (CMS/HCC)- Primary Muscle spasm Spasm of muscle Lumbosacral radiculopathy Thoracic or lumbosacral neuritis or radiculitis, unspecified Degeneration of intervertebral disc of lumbar region with discogenic back pain and lower extremity pain [facility]* Diagnosis Basal cell carcinoma (BCC) of glabella- Primary [facility]* Diagnosis Open facial wound, initial encounter Preop testing Unspecified pre-operative examination [facility]* Diagnosis Open wound of face, subsequent encounter- Primary [facility]* Diagnosis S/P total knee arthroplasty, left- Primary [facility]* Diagnosis Open wound of face, subsequent encounter- Primary [facility]* Diagnosis Onset Date Resolution Status Admit Date Crohn disease acute August 15, 2024 10:31am GERD (gastroesophageal reflu x disease) acute August 15, 2024 10:31am [facility] Work Phone: History and physical note Author Cesar Estrada [facility] March 12, 2023 9:42am Note Date/Time March 12, 2023 9 :42am [facility] [address] [place] [address] Gastroenterology H&P Signed Patient: Gia Ruiz MR#: [id number] : 1950 Acct:[id number] Age/Sex: 73 / F Adm Date: 3 Loc: Room: Type: [facility] Attending Dr: Cesar Estrada MD Copies to: MD Bambi [facility]~ Date of Service: 03/12/2023 HISTORY & PHYSICAL: Patient's history with special attention to the cardiovascular, pulmonary systems and the current problem was reviewed with the patient immediately prior to the procedure. Present medications and doses reviewed in the EMR. Allergies and pertinent laboratory tests were also reviewedat this time in the EMR. The physical examination, as below, was then performed. Indication, assessment and HPI: 73-year-old female with a history of Crohn's disease on Humira presents for staging and screening colonoscopy Family history of GI malignancy? No PHYSICAL EXAMINATION Mouth and Pharynx : Moist mucus membranes, normal dentition Cardiac: Regular rate, regular rhythm Pulmonary: Clear to auscultation bilaterally, no wheezing Neurological: Alert and oriented x3, no focal deficits noted Abdomen: Abdomen soft, non-tender REVIEW OF SYSTEMS Constitutional: Denies malaise, fevers Cardiovascular: Denies chest pain, palpitations Respiratory: Denies shortness of breath, wheezing Gastrointestinal: Per HPI Genitourinary: Denies dysuria, polyuria Musculoskeletal: Denies joint swelling, joint stiffness Neurological: Denies numbness, tingling Integumentary: Denies rashes, skin lesions Endocrine: Denies fatigue, weight loss Written informed consent obtained from the patient. Risks (including but not limited to perforation, infection, bloating, bleeding, need for emergent surgeryand loss of life), benefits and alternatives explained and questions answered. The patient verbalized understanding. Based on history patient is an appropriate candidate for the procedure. Cesar Estrada MD Documented By: Cesar Estrada MD 03/12/23940 Signed By: <Electronically signed by Cesar Estrada MD> 03/12/2342 [facility] Work Phone: History and physical note Author Cesar Estrada [facility] March 31, 2023 1:33pm Note Date/Time March 31, 2023 1:33pm [facility] [address] [place] [address] Gastroenterology H&P Signed Patient: Gia Ruiz MR#: [id number] : 1950 Acct:[id number] Age/Sex: 73 / F Adm Date: 3 Loc: Room: Type: [facility] Attending Dr: Cesar Estrada MD Copies to: MD Bambi Mcle[facility]~ Date of Service: 03/31/2023 HISTORY & PHYSICAL: Patient's history with special attention to the cardiovascular, pulmonary systems and the current problem was reviewed with the patient immediately prior to the procedure. Present medications and doses reviewed in the EMR. Allergies and pertinent laboratory tests were also reviewedat this time in the EMR. The physical examination, as below, was then performed. Indication, assessment and HPI: 73-year-old female presents for EGD to evaluate history of GERD, abnormal CT findings Family history of GI malignancy? No PHYSICAL EXAMINATION Mouth and Pharynx : Moist mucus membranes, normal dentition Cardiac: Regular rate, regular rhythm Pulmonary: Clear to auscultation bilaterally, no wheezing Neurological: Alert and oriented x3, no focal deficits noted Abdomen: Abdomen soft, non-tender REVIEW OF SYSTEMS Constitutional: Denies malaise, fevers Cardiovascular: Denies chest pain, palpitations Respiratory: Denies shortness of breath, wheezing Gastrointestinal: Per HPI Genitourinary: Denies dysuria, polyuria Musculoskeletal: Denies joint swelling, joint stiffness Neurological: Denies numbness, tingling Integumentary: Denies rashes, skin lesions Endocrine: Denies fatigue, weight loss Written informed consent obtained from the patient. Risks (including but not limited to perforation, infection, bloating, bleeding, need for emergent surgeryand loss of life), benefits and alternatives explained and questions answered. The patient verbalized understanding. Based on history patient is an appropriate candidate for the procedure. Cesar Estrada MD Documented By: Cesar Estrada MD 03/31/231332 Signed By: <Electronically signed by Cesar Estrada MD> 03/31/23 2751 [facility] Work Phone: History general Narrative - Reported* Type Description Date Medical History thyroid cancer Medical History thyroidectomy Medical History appendectomy Medical History inflammation of colon Medical History hypertension Medical History STROKE 09/04 Surgical History appendectomy Surgical History thyroidectomy 2001 Hospitalization History see above [facility] Other Hospital course Narrative No data available for this section [facility] Discharge instructions No data available for this section [facility] Discharge instructions Additional Instructions DISCHARGE INSTRUCTIONS FOR COLONOSCOPY WHAT TO EXPECT: - You may feel full, gassy or cramping after your procedure. In some cases, this may be from a few hours to a day. Walking may help relieve the discomfort. - If you have polyp(s) removed you may note some minor bloody discharge after your first bowel movements. - You should begin to recover from anesthesia within 1 hour of the procedure, however may feel groggy for the next 24 hours. DO's AND DON'Ts: - Call your doctor right away if you have a hard abdomen, severe pain, are passing lots of bright red blood or clots. - Call your doctor if you develop any rashes, hives or difficulty breathing. - Let your doctor know if you have not had a bowel movement by 3 days after your procedure. - If you take 81 mg aspirin for your heart it is safe to resume this medication. - If you take other blood thinner medications your doctor will instruct you when these can safely be resumed. - Do NOT drive for 24 hours. - Do NOT operate machinery such as power tools, lawn mowers, snow blowers, sewing machines, etc. for 24 hours. - Avoid alcoholic beverages and drugs for allergies, nerves, or sleep. - Do NOT stay alone. Do NOT leave your child unattended. - Do NOT make important personal or business decisions or sign any legal documents. - Eat solid foods and drink liquids in smaller amounts than usual until normal appetite returns. If you should experience an upset stomach, liquids high in sugar content (soda, Loco-Aid, non-acid juices) are recommended. - You can resume normal activities tomorrow. FOLLOW UP & RECOMMENDATIONS: -Follow-up with Dr. Estrada yearly. -Notify the doctor if you have any problems. -Follow up with PCP. -Office number [phone].[facility] Work Phone: Hospital Discharge instructions Additional Instructions DISCHARGE INSTRUCTIONS FOR UPPER ENDOSCOPY WHAT TO EXPECT: - You may feel full, gassy or cramping after your procedure. In some cases, this may be from a few hours to a day. Walking may help relieve the discomfort. - Your throat may feel sore today from the scope that the doctor passed through your throat to visualize your stomach. Take a throat lozenge or suck on ice to ease the discomfort. - You may notice some streaks of blood in your sputum if the doctor has taken a biopsy. - You should begin to recover from anesthesia within 1 hour of the procedure, however may feel groggy for the next 24 hours. DO's AND DON'Ts: - Call your doctor right away if you have a hard abdomen, severe pain, vomiting or if you cough up large amounts of blood. - Call your doctor if you develop any rashes, hives or difficulty breathing. - If you take 81 mg aspirin for your heart it is safe to resume this medication. - If you take other blood thinner medications your doctor will instruct you when these can safely be resumed. - Do NOT drive for 24 hours. - Do NOT operate machinery such as power tools, [employer] mowers, snow blowers, sewing machines, etc. for 24 hours. - Avoid alcoholic beverages and drugs for allergies, nerves, or sleep. - Do NOT stay alone. Do NOT leave your child unattended. - Do NOT make important personal or business decisions or sign any legal documents. - Eat solid foods and drink liquids in smaller amounts than usual until normal appetite returns. If you should experience an upset stomach, liquids high in sugar content (soda, Loco-Aid, non-acid juices) are recommended. - Do NOT smoke. - Do take it easy today. You need not stay in bed, but avoid strenuous activities such as jogging or working out. FOLLOW UP & RECOMMENDATIONS: -Follow-up with Dr. Estrada yearly -Continue your omeprazole -Notify the doctor if you have any problems. -Follow up with PCP. -Office number [phone].[facility] Work Phone: Progress note No data available for this section [facility] Chief Complaint and Reason for Visit Chief Complaint DJD DID knee Htn jose ramon diebeties Chief Complaint DJD Chief Complaint Crohn's Disease Chief Complaint Crohn's Disease heart burn, hiatal hernia Chief Complaint YEAR FOLLOW UP/CROHN 'S Reason for Visit Crohn disease Chief Complaint YEAR FOLLOW UP/CROHN 'S K50.90 Reason for Visit Crohn disease Chief Complaint YEAR FOLLOW UP/CROHN 'S K50.90 z01.818 Reason for Visit Crohn disease Chief Complaint Admit Date 1 yr follow up August 15, 2024 10: 31am Reason for Visit Admit Date Crohn disease August 15, 2024 10: 31am GERD (gastroesophageal reflux disease) M [facility] 2024 10:31am Family History Relationship Condition Age at Onset Recorded Date/T mumtaz father Alzheimer's disease Unknown Parkinson's disease Unknown Not Specified Diabetes mellitus Unknown Malignant neoplasm of lung Unknown Cerebrovascular accident (CVA) Unknown brother Malignant neoplasm of prostate Unknown brother Myocardial infarction Unknown Relationship Condition Age at Onset Recorded Date/T mumtaz father Alzheimer's disease Unknown Parkinson's disease Unknown Not Specified Diabetes mellitus Unknown Malignant neoplasm of lung Unknown Cerebrovascular accident (CVA) Unknown brother Malignant neoplasm of prostate Unknown brother Myocardial infarction Unknown brother Unknown father Unknown Not Specified Family history of lung cancer Unknown Diabetes mellitus Unknown Unknown Relationship Condition Age at Onset Recorded Date/T mumtaz father Alzheimer's disease Unknown Parkinson's disease Unknown mother Diabetes mellitus Unknown Malignant neoplasm of lung Unknown Cerebrovascular accident (CVA) Unknown brother Malignant neoplasm of prostate Unknown brother Myocardial infarction Unknown brother Unknown father Unknown mother Family history of lung cancer Unknown Diabetes mellitus Unknown Unknown Advance Directives Advance Directive Response Recorded Date/ Time Advance Directives No July 27 5:38am Advance Directive Response Recorded Date/ Time Advance Directives No July 27 6:38am Summary Purpose Additional Source Comments REASON FOR VISIT (unrecogniz ed section and content) Reason Comments Suspicious Skin Lesion Reason Comments Cerebrovascular Accident Reason Comments Mohs Micrographic Surgery Reason Comments Mohs Reconstruction New patient : Mohs g labella Specialty Diagnoses / Procedures Referred By Daniela rodriguez Referred To Contact Otolaryngology Diagnoses Basal cell carcinoma (BCC) of glabella Procedures MD OFFICE/OUTPATIENT NEW HIGH MDM 60 MINUTES Aamir James MD [address] [place] [address] Phone: tel: fax: Kevin Aguilar, DO [address] [place] [address] Phone: tel: fax: Referral ID Status Reason Start Date Expiration Date V isits Requested Visits Authorized [id number] Closed Specialty Services Required 06/09/2024 12/06/2024 1 1 Reason Comments Post-op Post op Mohs repair Reason Onset Date Comments Dentist 06/23/2024 Reason Comments Post-op 1 month bettye Care Teams (unrecognized sec tion and content) Team Status: Inactive Member Role Status Dates Estefanía Sutherland MD Primary Care Provider Active Adriana Cárdenas Jr, DO Attending Provider Active Team Status: Active Member Role Status Dates Estefanía Sutherland MD Primary Care Provider Active Team Status: Active Member Role Status Dates Bambi Browning NP-C Primary Care Provider Active Team Status: Inactive Member Role Status Dates Adriana Cárdenas Jr, DO Attending Provider Active Bambi Browning NP-Han Primary Care Provider Active Team Status: Inactive Member Role Status Dates Bambi Browning NP-Han Primary Care Provider Active Adriana Cárdenas Jr, DO Attending Provider Active Team Status: Inactive Member Role Status Dates Cesar Estrada MD Attending Provider Active Bambi Browning NP-Han Primary Care Provider Active Team Status: Inactive Member Role Status Dates Bambi Browning NP-C Primary Care Provider Active Cesar Estrada MD Attending Provider Active Team Status: Inactive Member Role Status Dates Bambi Browning NP-C Primary Care Provider Active Start: August 13, 2023 End: August 13, 2023 Cesar Estrada MD Attending Provider Active S tart: August 13, 2023 End: August 13, 2023 Team Status: Active Member Role Status Dates Marc Leggett MD Primary Care Provider Active Team Status: Inactive Member Role Status Dates Marc Leggett MD Primary Care Provider Active Start: September 30, 2023 End: September 30, 2023 Rosalinda Bernstein PA-C Attending Provider Active S tart: September 30, 2023 End: September 30, 2023 Team Status: Inactive Member Role Status Dates Marc Leggett MD Primary Care Provider Active Start: October 01, 2023 End: October 01, 2023 Rosalinda Bernstein PA-C Attending Provider Active S tart: October 01, 2023 End: October 01, 2023 Manager Country Relationship Specialty Start Date End Date Marc Leggett MD [address] [place] [phone] PCP - General Family Medicine 11/26/22 Manager Country Relationship Specialty Start Date End Date Marc Leggett MD [address] [place] [phone] PCP - General Family Medicine 11/26/22 Manager Country Relationship Specialty Start Date End Date Marc Leggett MD [address] [place] [phone] PCP - General Family Medicine 11/26/22 Manager Country Relationship Specialty Start Date End Date Marc Leggett MD [address] [place] [address] PCP - General Family Medicine 11/26/22 Manager Country Relationship Specialty Start Date End Date Marc Leggett MD [address] [place] [phone] PCP - General Family Medicine 11/26/22 Manager Country Relationship Specialty Start Date End Date Marc Leggett MD [address] [place] [address] PCP - General Family Medicine 11/26/22 Manager Country Relationship Specialty Start Date End Date Macr Leggett MD [address] [place] [address] PCP - General Family Medicine 11/26/22 Manager Country Relationship Specialty Start Date End Date Marc Leggett MD [address] [place] [address] PCP - General Family Medicine 11/26/22 Manager Country Relationship Specialty Start Date End Date Marc Leggett MD [address] [place] [address] PCP - General Family Medicine 11/26/22 Manager Country Relationship Specialty Start Date End Date Marc Leggett MD [address] [place] [address] PCP - General Family Medicine 11/26/22 Manager Country Relationship Specialty Start Date End Date Marc Leggett MD [address] [place] [address] PCP - General Family Medicine 11/26/22 Team Status: Inactive Member Role Status Dates Cesar Estrada MD Attending Provider Active S tart: August 15, 2024 End: August 15, 2024 Marc Leggett MD Primary Care Provider Active Start: August 15, 2024 End: August 15, 2024 Manager Country Relationship Specialty Start Date End Date Marc Leggett MD [address] [place] [address] PCP - General Family Medicine 11/26/22 Goals (unrecognized section and content) Goals may be documented in a n alternate section INFORMATION SOURCE (unrecogn ized section and content) DATE CREATED AUTHOR 08/21/2022 [facility] DATE CREATED AUTHOR AUTHOR'S ORGANIZ ATION 10/11/2023 [facility] DATE CREATED AUTHOR AUTHOR'S ORGANIZ ATION 01/27/2024 [facility] DATE CREATED AUTHOR AUTHOR'S ORGANIZ ATION 05/20/2024 [facility] DATE CREATED AUTHOR AUTHOR'S ORGANIZ ATION 05/31/2024 [facility] DATE CREATED AUTHOR AUTHOR'S ORGANIZ ATION 06/01/2024 [facility] DATE CREATED AUTHOR AUTHOR'S ORGANIZ ATION 06/04/2024 [facility] DATE CREATED AUTHOR AUTHOR'S ORGANIZ ATION 07/22/2024 [facility] Special[facility] FOR RECORDS PERTAINING TO PATIENTS WHO ARE OR HAVE BEEN ENROLLED IN A CHEMICAL DEPENDENCY/SUBSTANCEABUSE PROGRAM, SOME INFORMATION MAY BE OMITTED. This clinical summary was aggregated from multiple sources. Caution should be exercised in using it in the provision of clinical care. This summary normalizes information from multiple sources, and as a consequence, information in this document may materially change the coding, format and clinical context of patient data. In addition, data may be omitted in some cases. CLINICAL DECISIONS SHOULD BE BASED ON THE PRIMARY CLINICAL RECORDS. [facility]. provides no warranty or guarantee of the accuracy or completeness of information in this document.
== END 2024-08-22 21:22 | disposition home or self-care (01) ==
LOC: LAB 21:21
PROVIDERS: PCP Family Medicine; Visit Provider Obstetrics & Gynecology
DX: Z01.419 Encounter for gynecological examination (general) (routine) without abnormal findings (principal)
CPT/HCPCS: 88175

== ENCOUNTER 2024-08-29 13:27 | Outpatient (OUT) | payer MEDICARE, BC, SELFPAY ==
--- NOTE | 2024-08-29 13:31 | MM_ITS ---
Patient Name: LIBERTY BRYANT MR#: [id number] : 1950 Exam Date: 08/29/2024 Ordering Doctor: DR Robert Ferreira . RADIOLOGY REPORT PROCEDURE: MM TOMOSYNTHESIS SCREENING BI COMPARISON: MM TOMOSYNTHESIS SCREENING BI, 08/27/2023. MG MAMM SCREEN 3D CALOS CAD, 05/16/2022. MG MAMM SCREEN 3D CALOS CAD, 05/07/2021. MG MAMM CALOS SCRN W CAD DIG, 01/03/2014. INDICATIONS: Screening Calculator Name NCI Breast Cancer Risk Assessment Tool 5 Year Breast Cancer Risk 2.00% Lifetime Breast Cancer Risk 4.80% Personal Breast Cancer No Personal Ovarian Cancer No Treatments RADIATION/THYROIDECTOMY Family Cancers Aunt-maternal with breast cancer at age 50; Aunt-maternal with breast cancer at age 45; Grandmother-maternal with breast cancer at age 46; Mother with lung cancer at age 80; Brother with prostate cancer at age 70. LOCATION: [facility] BREAST COMPOSITION: The breasts are almost entirely fatty. FINDINGS: DIAGNOSTIC CATEGORY 1--NEGATIVE. RIGHT BREAST: No significant suspicious finding. LEFT BREAST: No significant suspicious finding. RECOMMENDATIONS: ROUTINE MAMMOGRAM AND CLINICAL EVALUATION IN 12 MONTHS. PLEASE NOTE: A NORMAL MAMMOGRAM DOES NOT EXCLUDE THE POSSIBILITY OF BREAST CANCER. A CLINICALLY SUSPICIOUS PALPABLE LUMP SHOULD BE BIOPSIED. Dictated by: Hector Avery DO on 08/29/2024 at 15:56 Approved by: Hector Avery DO on 08/29/2024 at 15:57
== END 2024-08-29 13:28 | disposition home or self-care (01) ==
LOC: MAMMO 13:27
PROVIDERS: PCP Family Medicine; Visit Provider Obstetrics & Gynecology
DX: Z12.31 Encounter for screening mammogram for malignant neoplasm of breast (principal); Z80.3 Family history of malignant neoplasm of breast; Z80.1 Family history of malignant neoplasm of trachea, bronchus and lung; Z80.42 Family history of malignant neoplasm of prostate
CPT/HCPCS: 77063; 77067

== ENCOUNTER 2025-02-07 15:23 | Outpatient (OUT) | payer MEDICARE, BC, SELFPAY ==
--- OUTSIDE RECORDS SUMMARY | 2025-02-07 15:26 | XMS_ITS | Encounter Summary ---
Author Organization [facility] Address [address] [place] [address] Care Team Providers Care Exchange Underwriting Consultant Name Role Phone Marc Leggett MD Primary Care Provider [phone] Encounter Details Date Type Department Care Team (Late st Contact Info) Description 11/27/2022 External Result Encounter [facility] External Department Unsolicited Jr. Jorge Cárdenas, DO [address] [facility] [address] [place] [address] Social History Tobacco Use Types Packs/Day Years Used Date Smoking Tobacco: Never Smokeless Tobacco: Never Alcohol Use Standard Drinks/Week Comments Yes 1 (1 standard drink = 0.6 oz pur e alcohol) Comments No Sex and Gender Information Value Date Recorded Sex Assigned at Female 11/19/2022 11:20 AM EDT Legal Sex Female 7:12 PM EDT Gender Identity Female 11/19/2022 11:20 AM EDT Sexual Orientation Asexual 11/19/2022 11 :20 AM EDT documented as of this encounter Plan of Treatment Upcoming Encounters Date Type Department Care Team (Late st Contact Info) Description 10/26/2025 10:30 AM EDT Office [facility] [address] [place] [address] Timothy Bernstein PA [address] [facility] [place] [address] 11/30/2025 11:00 AM EDT Office Visit [facility] [place] [facility] [address] [place] [address] Elma Chávez MD [address] [place] [address] documented as of this encounter Procedures Procedure Name Priority Date/Time Associated Diagnosis Comments XR TIBIA/FIBULA BI 11/27/2022 4: 32 PM EDT documented in this encounter Results * XR TIBIA/FIBULA BI (11/27/2022 4:32 PM EDT) Anatomical Region Laterality Modality Radiographic Marquita ging 11/27/2022 4:32 PM EDT Impressions 11/28/2022 10:02 AM EDT GENU VALGUM DEFORMITY AND MILD DEGENERATIVE CHANGES [...] Deya Anguiano M.D.11/27/2022 4:38 PM Dictation Location: [place] [address] Transcribed By: [facility] 11/27/228 Dictated By: Deya Anguiano MD 11/27/221631 Signed By: <Electronically signed by MD Deya Anguiano in OV> 11/27/22 1638 Narrative 11/28/2022 10:02 AM EDT [facility] Main [place] [address] [place] [address] XRay Report Signed Patient: Gia Ruiz MR#: [id number] : 1950 Acct:[id number] Age/Sex: 72 / F ADM Date: 11/27/22 Loc: [facility] Room: Type: [facility] Attending Dr: Jorge Cárdenas Jr DO Copies to: Jorge Cárdenas Jr, DO Ordering Provider: Jorge Cárdenas Jr, DO Date of Service: 11/27/22 XR/XR tibia/fibula BI: PRE OP TOTAL TKA ([id number]) XR/XR femur BI: PRE OP TKA CLINICAL [...] tissue abnormalities are seen. XR/XR femur BI Procedure Note Radiology, Radiologist, MD - 11/28/2022 [facility] Main [address] [address] XRay Report Signed Patient: Gia Ruiz LMR#: [id number] : 1950cct:[id number] Age/Sex: 72 / FADM Date: 11/27/22 Loc: [facility] Room:Type: [facility] Attending Dr: Jorge Cárdenas Jr DO Copies to: Jorge Cárdenas Jr, DO Ordering Provider: Jorge Cárdenas Jr, DO Date of Service: 11/27/22 XR/XR tibia/fibula BI: PRE OP TOTAL TKA ([id number]) XR/XR femur BI: PRE OP TKA CLINICAL DATA: Preoperative planning for right knee replacement. BILATERAL FEMUR - 1 view COMPARISON: 05/05/2022 AP and lateral standing views of the lower legs were obtained using longcassettes. There is redemonstration of genu valgum deformity at the knees. There is mildtibiofemoral joint compartment narrowing and marginal spurring, greater laterally. There are no acutefractures or dislocation. The hip joint spaces are symmetric and there is no prominent hypertrophy.Slight levoscoliotic curvature and degenerative changes are present at the lower imaged lumbar spine. Nosoft tissue abnormalities are seen. 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 NO OTHER ACUTE FINDINGS INVOLVING THE UPPER LEGS. BILATERAL TIB-FIB - 1 view COMPARISON: 05/05/2022 AP standing view of the tibia and fibula were obtained. The bottom of theimages is at the tibial plafond. No acute fractures or dislocation are noted. Genu valgumdeformity is seen. There are no soft tissue abnormalities. IMPRESSION: NO ACUTE BONY FINDINGS. Impression dictated by: Deya Anguiano M.D.11/27/2022 4:38 PM Dictation Location: [place] [address] Transcribed By: [facility] 11/27/22 1638 Dictated By: Deya Anguiano MD 11/27/22 1632 Signed By: <Electronically signed by MD Deya Anguiano in OV> 11/27/22 1638 Jr. Jorge Cárdenas DO IMG XR PROCEDURES Final Result documented in this encounter Visit Diagnoses Not on filedocumented in this encounter Care Teams Exchange Underwriting Consultant Relationship Specialty Start Date End Date Marc Leggett MD PCP - General Family Medicine 11/26/22 documented as of this encounter
--- OUTSIDE RECORDS SUMMARY | 2025-02-07 15:26 | XMS_ITS | Encounter Summary ---
Author Organization [facility] Address [address] [place] [address] Care Team Providers Care Pressing Machine Tender Name Role Phone Marc Leggett MD Primary Care Provider [phone] Encounter Details Date Type Department Care Team (Late st Contact Info) Description 04/17/2023 [facility] [address] [facility] [address] [place] [phone] Marc Clifton, PT Social History Tobacco Use Types Packs/Day Years Used Date Smoking Tobacco: Former Cigarettes Smokeless Tobacco: Never Alcohol Use Standard Drinks/Week Comments Yes 1 (1 standard drink = 0.6 oz pure alcohol) caffeine intake: 3-4 cups per day. Comments No Sex and Gender Information Value [...] Description 10/26/2025 10:30 AM EDT Office Visit [facility] [place] [facility] [address] [place] [address] Timothy Bernstein PA [address] [facility] [place] [address] 11/30/2025 11:00 AM EDT [facility] [address] [place] [address] Elma Chávez MD [address] [place] [address] documented as of this encounter Visit Diagnoses Not on filedocumented in this encounter Care Teams Pressing Machine Tender Relationship Specialty Start Date End Date Marc Leggett MD PCP - General Family Medicine 11/26/22 documented as of this encounter
--- OUTSIDE RECORDS SUMMARY | 2025-02-07 15:26 | XMS_ITS | Encounter Summary ---
Author Organization [facility] Address [address] [facility] [place] [address] Care Team Providers Care Bridge Worker Apprentice Name Role Phone Marc Leggett MD Primary Care Provider [phone] Encounter Details Date Type Department Care Team (Late st Contact Info) Description 09/30/2023 External Result Encounter [facility] External Department Unsolicited Timothy Bernstein, PA [address] [place] [address] Social History Tobacco Use Types Packs/Day Years [...] Orthopaedics [address] [place] [address] Timothy Bernstein PA [address] [facility] [place] [address] 11/30/2025 11:00 AM EDT Office Visit [facility] [place] [facility] [address] [place] [address] Elma Chávez MD [address] [place] [address] documented as of this encounter Procedures Procedure Name Priority Date/Time Associated Diagnosis Comments XR CHEST 2 VIEWS 09/30/2023 3:52 PM EDT documented in this encounter Results * XR chest 2 views (09/30/2023 3:52 PM EDT) Anatomical Region Laterality Modality Chest Radiographic Marquita ging 09/30/2023 3:52 PM EDT Impressions 09/30/2023 3:55 PM EDT NO ACUTE CARDIOPULMONARY ABNORMALITY. Impression dictated by: Hector Avery Jr., D.OCarmen09/30/2023 3:53 PM Dictation Location: [place] [address] Transcribed By: [facility] 09/30/23 1553 Dictated By: Hector Avery Jr, DO 09/30/23 1552 Signed By: <Electronically signed by Hector Avery Jr, DO in OV> 09/30/23 1553 Narrative 09/30/2023 3:55 PM EDT [facility] Main [place] [address] [place] [address] XRay Report Signed Patient: Gia Ruiz MR#: [id number] : 1950 Acct:[id number] Age/Sex: 73 / F ADM Date: 09/30/23 [facility]: [facility]: [facility]: Timothy Bernstein PA-C Copies to: Timothy Bernstein PA-C Ordering Provider: Timothy Bernstein PA-C Date of Service: 09/30/23 XR/XR chest 2V*: Z01.818 Chest 2 views CLINICAL HISTORY: Preop left TKA COMPARISON: None FINDINGS: Heart appears normal in size. Evidence old granulomatous disease. No consolidation pneumothorax pleural effusion or free air. XR/XR chest 2V* Procedure Note Radiology, Radiologist, MD - 09/30/2023 [facility] Main [place] [address] [place] [address] XRay Report Signed Patient: Gia Ruiz LMR#: [id number] : 1950cct:[id number] Age/Sex: 73 / FADM Date: 09/30/23 Loc: Room:Type: [facility] Attending Dr: Timothy Bernstein PA-C Copies to: Timothy Bernstein PA-C Ordering Provider: Timothy Bernstein PA-C Date of Service: 09/30/23 XR/XR chest 2V*: Z01.818 Chest 2 views CLINICAL HISTORY: Preop left TKA COMPARISON: None FINDINGS: Heart appears normal in size. Evidence old granulomatous disease. Noconsolidation pneumothorax pleural effusion or free air. XR/XR chest 2V* IMPRESSION: NO ACUTE CARDIOPULMONARY ABNORMALITY. Impression dictated by: Hector Avery Jr., DCarmenOCarmen09/30/2023 3:53 PM Dictation Location: [place] [address] Transcribed By: [facility] 09/30/23 155 Dictated By: Hector Avery Jr, DO 09/30/23 155 Signed By: <Electronically signed by Hector Avery Jr, DO inOV> 09/30/23 155 us Timothy LAIRD XR PROCEDURES Final Resul t documented in this encounter Visit Diagnoses Not on filedocumented in this encounter Care Teams Bridge Worker Apprentice Relationship Specialty Start Date End Date Marc Leggett MD PCP - General Family Medicine 11/26/22 documented as of this encounter
--- OUTSIDE RECORDS SUMMARY | 2025-02-07 15:26 | XMS_ITS | Encounter Summary ---
Author Organization [facility] Address [address] [place] [address] Care Team Providers Care Mobile Security Architect Name Role Phone Marc Leggett MD Primary Care Provider [phone] Encounter Details Date Type Department Care Team (Late st Contact Info) Description 08/27/2023 Clinisync Result Encounter [facility] External Department Unsolicited Dav Ferreira, DO [address] [facility] Felisha C Joel, [facility] Social History Tobacco Use Types Packs/Day Years [...] Orthopaedics [address] [place] [address] Timothy Bernstein, PONCHO [address] [facility] [place] [address] 11/30/2025 11:00 AM EDT [facility] [address] [place] [address] Elma Chávez MD [address] [place] [address] documented as of this encounter Procedures Procedure Name Priority Date/Time Associated Diagnosis Comments XR DEXA AXIAL SKELETON 08/27/2023 3:12 PM EDT documented in this encounter Results * XR DEXA AXIAL SKELETON (08/27/2023 3:12 PM EDT) Anatomical Region Laterality Modality Other 08/27/2023 3:12 PM EDT Narrative 08/27/2023 3:15 [place] [address] XRay Report Signed Patient: GIA BRYANT MR#: [id number] : 1950 Acct:[id number] Age/Sex: 73 / F ADM Date: 08/27/23 Loc: MAMMO Attending Dr: Dav Ferreira D.O. Ordering Physician: Dav Ferreira D.O. Date of Service: 08/27/23 Procedure(s): XR DEXA axial skeleton Accession Number(s): [id number] cc: Dav Ferreira D.O.; Physician,Non-Staff Keny The [address] [address] Patient Name: GIA BRYANT MRN: [id number] date: 1950 Sex: F Assigned Patient Location: MAMMO Current Patient Location: [facility] Accession/Order Number: [id number] Exam Date: 08/27/2023 14:30 Report Date: 08/27/2023 15:12 At the request of: DAV FERREIRA Procedure: XR DEXA axial skeleton EXAMINATION: XR DEXA axial skeleton HISTORY: screening for osteoporosis COMPARISON: DEXA bone densitometry 08/19/2022 TECHNIQUE: Dual-energy X-ray absorptiometry (DXA) was performed. FINDINGS: SPINE ANALYSIS: Average bone mineral density is 1.255 g/cm2. T-score (standard deviation relative to young adult mean): 0.6 . -4.5% change since prior study. HIP ANALYSIS: Lowest bone mineral density is within the left femoral neck, 0.732 g/cm2. T-score (standard deviation relative to young adult mean): -2.2 . -3.4% change since prior study. XR/XR DEXA axial skeleton IMPRESSION: World Kamron Organization Classification: Osteopenia - Moderate Fracture Risk Electronically authenticated by: VINICIUS MARTE Date: 08/27/2023 15:12 Dictated By: Vinicius Marte M.D. Signed By: 08/27/23 1515 DD/ 1512 TD/TT: Plant Inspector: Procedure Note Radiology, Radiologist, MD - 08/27/2023 [place] [address] XRay Report Signed Patient: GIA BRYANT R#: [id number] : 1950cct:[id number] Age/Sex: 73 / FADM Date: 08/27/23 Loc: MAMMO Attending Dr: Dav Ferreira D.O. Ordering Physician: Dav Ferreira D.O. Date of Service: 08/27/23 Procedure(s): XR DEXA axial skeleton Accession Number(s): [id number] cc: Dav Ferreira D.O.; Physician,Non-Staff Keny [facility] [place] [address] Patient Name: GIA BRYANT MRN: [facility]:[id number] date: 1950 Sex: F Assigned Patient Location: [facility] Current Patient Location: [facility] Accession/Order Number: [id number] Exam Date: 08/27/2023 14:30 Report Date: 08/27/2023 15:12 At the request of: DAV FERREIRA Procedure: XR DEXA axial skeleton EXAMINATION: XR DEXA axial skeleton HISTORY: screening for osteoporosis COMPARISON: DEXA bone densitometry 08/19/2022 TECHNIQUE: Dual-energy X-ray absorptiometry (DXA) was performed. FINDINGS: SPINE ANALYSIS: Average bone mineral density is 1.255 g/cm2. T-score (standard deviation relative to young adult mean): 0.6 . -4.5% change since prior study. HIP ANALYSIS: Lowest bone mineral density is within the left femoral neck, 0.732 g/cm2. T-score (standard deviation relative to young adult mean): -2.2 . -3.4% change since prior study. XR/XR DEXA axial skeleton IMPRESSION: World Kamron Organization Classification: Osteopenia - Moderate FractureRisk Electronically authenticated by: VINICIUS MARTE Date: 08/27/2023 15:12 Dictated By: Vinicius Marte M.D. Signed By:08/27/23 1515 DD/ 11 TD/TT: Plant Inspector: us Dav Ferreira DO [facility] Final Result documented in this encounter Visit Diagnoses Not on filedocumented in this encounter Care Teams Mobile Security Architect Relationship Specialty Start Date End Date Marc Leggett MD PCP - General Family Medicine 11/26/22 documented as of this encounter
--- OUTSIDE RECORDS SUMMARY | 2025-02-07 15:26 | XMS_ITS | Patient Health Record ---
Author Organization [facility] [place] Address [address] [place] [address] Support Name Relationship Address Phone Gia Ruiz Guarantor Unknown [phone] Reason For Referral No Information Medications Medication SIG (Take, Route, Frequency, Duration) Notes Start Date End Date Status Humira 40 MG/0.8ML 1 Subcutaneous every 14 days 03/29/2013 Active Magnesium Oxide 250 MG Oral daily Active Fiber (Guar Gum) Oral daily A ctive Multivitamins Oral daily Acti ve Moexipril-Hydrochlorothiazid e 7.5-12.5 MG Oral daily Active Oxymetazoline HCl 0.05 % Nasal at bedtime 05/18/18 Active Levothyroxine Sodium 150 MCG Oral daily Active traMADol HCl 50 MG Oral three times daily 05/18/18 Active Omeprazole 20 MG Oral daily A ctive Loratadine Allergy Relief 10 MG Oral daily Active Calcium two times daily Act mili oxyCODONE-Acetaminophen 5-325 MG Oral at bedtime Active Sulindac 200 MG Oral at bedtime Active Ginseng Complex/Hardesty Jelly 800-200 MG Oral daily Active Apriso 0.375 GM Oral daily Ac tive Fish Oil Burp-Less 1200 MG Oral two times daily Active Ginseng 450 MG Oral two times daily Active Cyclobenzaprine HCl 10 MG Oral at bedtime 05/18/18 Active Plan Of Treatment No Information Insurance Providers Payer Name Payer Address Payer Phone Subscriber Number Group Number Insured Name Patient Relationship to Insured Coverage Start Date Coverage End Date [employer] [id number] Gia Ruiz Self - patient is the insured [employer] [id number] Gia Ruiz Self - patient is the insured Medical (General) History Surgical History Surgery Date(Month/Year) Appendectomy Arthroscopy cystoscopy D&C thyroidectomy
--- OUTSIDE RECORDS SUMMARY | 2025-02-07 15:26 | XMS_ITS | Clinical Summary ---
Author Organization [facility] Address [address] [place] [address] Care Team Providers Care Pipefitter Welder Name Role Phone Mile Sanchez MD Primary Care Provider [phone] Allergies Active Allergy Reactions Criticality Noted Date Comments Oxycodone-Acetaminophen Hallucinations 11/27/19 23 Sulfamethoxazole-Trimethoprim Rash Medium 2022 Medications atorvastatin (Lipitor) 20 MG tablet 07/10/19 23 Active levothyroxine (Synthroid, Levoxyl) 125 MCG tablet Active losartan-hydroCHLO ROthiazide (Hyzaar) 100-25 MG tablet Take by mouth 08/07/19 23 Active adalimumab (Humira) 40 MG/0.8ML Prefilled Syringe Kit prefilled syringe 07/10/19 23 Active omeprazole (PriLOSEC) [address] capsule 09/10/19 23 Active metFORMIN (Glucophage) 500 MG tablet Active liothyronine (Cytomel) 5 MCG tablet 1 (one) time each day at the same time 07/10/19 23 Active aspirin 81 MG EC tablet Take 1 tablet by mouth Daily 07/10/19 23 Active calcium carbonate EX (Tums Extra Strength) 750 MG chewable tablet Chew 300 mg Ac tive magnesium gluconate (Magonate) 500 MG tablet Take by mouth 07/14/19 23 Active Martell-3 Fatty Acids (Fish Oil) 1200 MG capsule delayed-release Take by mouth 07/14/19 23 Active Multiple Vitamin (Multi Vitamin) tablet 1 (one) time each day at the same time Active Methylcobalamin (Methyl B-12) 500 MCG chewable tablet 09/19/19 23 Active Bacillus Coagulans-Inulin (PROBIOTIC-PREBIOT IC PO) Active coenzyme Q-10 100 MG ER capsule Active acetaminophen (Tylenol 8 Hour) 650 MG ER tablet Take by mouth 07/14/19 23 Active Zinc Sulfate (ZINC 15 PO) Active ascorbic acid (Vitamin C) 250 MG chewable tablet Acti ve Melatonin 5 MG chewable tablet Acti ve Cranberry 500 MG chewable tablet Chew Acti ve ondansetron (Zofran) 8 MG tablet Take 8 mg by mouth every 8 (eight) hours if needed for nausea 08/26/19 24 Active cholecalciferol (Vitamin D-3) 1.25 MG (96453 UT) capsule Take 50,000 Units by mouth 1 (one) time per week 1 capsule Orally twice a month Active ferrous sulfate 325 (65 Fe) MG tablet Take 325 mg by mouth in the morning. Take with meals. Active Tirzepatide (Mounjaro) 5 MG/0.5ML solution auto-injector Inject 5 mg under the skin 1 (one) time per week Active baclofen (Lioresal) 10 MG tabletIndications: Muscle spasm TAKE 1 TABLET BY MOUTH IN THE MORNING AND 2 BEFORE BEDTIME NEEDED 270 tablet 2 06/07/19 25 Active pregabalin (Lyrica) 50 MG capsuleIndications :Cerebrovascular accident (CVA), unspecified mechanism (HCC),Spasticity,L umbosacral radiculopathy,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 She initially presented with left sided weakness/paresthesia causing a fall. Her left upper extremity symptoms have improved after therapy but her left lower extremity symptoms persist despite baclofen. Per chart review, MRA of the head 08/2019 revealed left V4 stenosis and carotid ultrasound revealed no hemodynamically significant stenosis. Carotid ultrasound 03/11/23 revealed no hemodynamically significant stenosis. TCD 03/11/23 revealed bilateral hyperostosis but was otherwise within normal limits. She did well with her knee replacement in November 2022 when her aspirin was held. Patient denies new signs or symptoms of stroke. Left hemiparesis 12/19/2023 Paresthesia of skin 12/19/2023 Overview (12/19/2023): She continues with paresthesia and foot drop to the LLE. We will obtain EMG. Spasticity 12/19/2023 Overview (12/19/2023): She continues with spasticity mainly to her left lower extremity causing balance disturbance . She has done PT with no continued benefit. She did not feel a benefit with baclofen so Zanaflex and Flexeril were tried separately and she elected to resume baclofen as there was some slight benefit but her symptoms persist and she is very limited in her ambulation. Currently taking Ferritin and Magnesium per her PCP. She is also doing well with baclofen dosing. DDD (degenerative disc disease), lumbar 12/19/19 24 Overview (12/19/2023): Patient continues with back pain. She did not have benefit with PT. MRI of the lumbar spine 03/21/21 revealed multilevel degenerative changes most pronounced at L4-L5 with moderate to severe disc space narrowing left greater than right. There are various levels of osteophyte formation and facet arthopathy. She avoids NSAIDs due to acid reflux and takes tylenol twice daily. Patient has tried to increase physical activity s/p knee replacement. Acute pain of left knee 11/12/2023 Kidney stone 12/25/2022 Type II diabetes mellitus 12/25/2022 Acid reflux 11/26/2022 GERD (gastroesophageal reflux disease) Acute cystitis without hematuria 11/26/2022 Asymptomatic microscopic hematuria 11/26/2022 Class 1 obesity 11/26/2022 Crohn's disease 11/26/2022 Diabetes mellitus 11/26/2022 Hyperlipidemia 11/26/2022 Hypothyroidism 11/26/2022 Incomplete bladder emptying 11/26/2022 JOSE RAMON (obstructive sleep apnea) 11/26/2022 Osteoarthritis of knee 11/26/2022 Osteoarthritis 11/26/2022 Primary osteoarthritis of right knee 11/26/2022 Primary osteoarthritis 11/26/2022 Status post total knee replacement 11/26/2022 UTI (urinary tract infection) 11/26/2022 Hypertension 10/03/2019 Hypertensive disorder 10/03/2019 Malignant neoplasm of thyroid gland 04/13/2006 Resolved Problems Problem Noted Date Diagnosed Date Resolved Date Dysuria 06/12/2024 06/12/2024 Labial abscess 06/12/2024 06/12/2024 Pre-op exam 06/12/2024 06/12/2024 Skin texture changes 06/12/2024 025 Urge incontinence 06/12/2024 06/12/2024 Urinary frequency 06/12/2024 06/12/2024 Alcohol abuse 11/26/2022 12/25/2022 Encounters Date Type Department Care Team Description 01/11/2025 Telephone [facility] [address] [place] [address] Jr. 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 Bamboo flowsheet [facility] [address] [place] [address] Elma Chávez MD 11/29/2024 Travel 11/27/2024 Travel from Last 3 Months Immunizations Immunization Administration Dates Next Due DTP 01/24/2021 Influenza, High Dose Seasona l, Preservative Free 04/28/2024,04/30/2019 Influenza, High-dose Seasona l, Quadrivalent, Preservative Free 04/21/2022 Influenza, Seasonal, Quadriv alent, Adjuvanted 03/15/2021 Influenza, Unspecified 04/21/2022,03/15/2021, Influenza, injectable, quadrivalent 02/16/2020 Moderna Bivalent Booster Vaccination 04/21/2022 Moderna SARS-CoV-2 50mcg/0.5mL Booster Pneumococcal Conjugate PCV 20 04/28/2024 Zoster, Recombinant 07/01/2019,04/30/2019 Family History Medical History Relation Name Comments Heart failure Brother 1 Karthik Laml Cancer Brother 2 Augustus Scott Heart failure Brother 3 Chandrakant Scott Hypertension Brother 3 Chandrakant Scott Heart failure Brother 4 Zack Scott Alzheimer's disease Father Tex Scott Diabetes Father Tex Scott Hypertension Father Tex Chavez parkinsons Father Tex Scott Heart disease Maternal Grandfather Cancer Maternal Grandmother Syed Osborne Arthritis Mother Rosa Maria Scott Cancer Mother Rosa Maria Scott Depression Mother Rosa Maria Scott Diabetes Mother Rosa Maria Scott Hypertension Mother Rosa Maria Scott Lung cancer Mother Rosa Maria Scott Obesity Mother Rosa Maria Scott Stroke Mother Rosa Maria Scott Cancer Mother's Sister 1 Lora Dagg Cancer Mother's Sister 2 Teri Diego Cancer Sibling Depression Sibling Heart disease Sibling Hypertension Sibling Relation Name Status Comments Brother 1 Karthik Holcombehl 4 brothers Brother 2 Augustus Scott Brother 3 Chandrakant Scott Brother 4 Zack Scott Daughter 3 daughters Father Tex Holcombehl Maternal Grandfather Maternal Grandmother Glarafa Bourgeoisig Mother Rosa Maria Scott Mother's Sister 1 Lora Dagg Mother's Sister 2 Teri Diego Sibling Sister 3 sisters Social History Tobacco Use Types Packs/Day Years Used Date Smoking Tobacco: Former Cigarettes 1.5 32 Q uit: 04/08/2002 Smokeless Tobacco: Never Alcohol Use Standard Drinks/Week Comments Yes 1 (1 standard drink = 0.6 oz pur e alcohol) Less than one drink per month Comments No Sex and Gender Information Value Date Recorded Sex Assigned at Female 11/19/2022 11:20 AM EDT Legal Sex Female 7:12 PM EDT Gender Identity Female 11/19/2022 11:20 AM EDT Sexual Orientation Asexual 11/19/2022 11 :20 AM EDT Last Filed Vital Signs Vital Sign Reading Time Taken Comments Blood Pressure 124/82 10/12/2024 3:40 PM EDT Pulse 74 10/12/2024 3:40 PM EDT Temperature - - Respiratory Rate 16 10/12/2024 3:40 PM EDT Oxygen Saturation 98% 10/12/2024 3:40 PM EDT Inhaled Oxygen Concentration - - Weight 87.5 kg (193 lb) 10/12/2024 3:40 PM EDT Height 157.5 cm (5' 2 ) 10/12/2024 3:40 PM EDT Body Mass Index 35.3 10/12/2024 3:40 PM EDT Plan of Treatment Upcoming Encounters Date Type Department Care Team (Late st Contact Info) Description 10/26/2025 10:30 AM EDT Office Visit [facility] [address] [place] [address] Timothy Bernstein, PONCHO [address] [place] [address] 11/30/2025 11:00 AM EDT Office Visit [facility] [address] [place] [address] Elma Chávez MD [address] [place] [address] Health Maintenance Due Date Last Done Comments CT Colonography 1950 Colonoscopy 1950 Colorectal Cancer Screening 1950 FIT-DNA 1950 FIT 1950 FOBT 1950 Sigmoidoscopy 1950 Influenza Vaccine (#1) 2025 4, 04/21/2022, 04/21/2022, Additional history exists Mammogram 08/29/2025 08/29/2024, 08/16, 05/16/2022 Pneumococcal Vaccine: 65+ Years Completed 4 Procedures Procedure Name Priority Date/Time Associated Diagnosis Comments MM TOMOSYNTHESIS SCREENING BI 08/29/2024 3:57 PM EDT from Last 3 Months or Most Recently Relevant to Health Maintenance Results * MM TOMOSYNTHESIS SCREENING BI (08/29/2024 3:57 PM EDT) Anatomical Region Laterality Modality Other 08/29/2024 3:57 PM EDT Narrative 08/29/2024 3:58 [place] [address] Mammography Report Signed Patient: GIA RUIZ MR#: [id number] : 1950 Acct:[id number] Age/Sex: 74 / F ADM Date: 08/29/24 Loc: MAMMO Attending Dr: Robert Ferreira D.O. Ordering Physician: Robert Ferreira D.O. Results: Date of Service: 08/29/24 Follow Up: Procedure(s): MM tomosynthesis screening BI Accession Number(s): [id number] cc: Robert Ferreira D.O.; MILE SANCHEZ Patient Name: GIA RUIZ MR#: [id number] : 1950 Exam Date: 08/29/2024 Ordering Doctor: DR Robert Ferreira . RADIOLOGY REPORT PROCEDURE: MM TOMOSYNTHESIS SCREENING BI COMPARISON: MM TOMOSYNTHESIS SCREENING BI, 08/27/2023. MG MAMM SCREEN 3D CALOS CAD, 05/16/2022. MG MAMM SCREEN 3D CALOS CAD, 05/07/2021. MG MAMM CALOS SCRN W CAD DIG, 01/03/2014. INDICATIONS: Screening Calculator Name NCI Breast Cancer Risk Assessment Tool 5 Year Breast Cancer Risk 2.00% Lifetime Breast Cancer Risk 4.80% Personal Breast Cancer No Personal Ovarian Cancer No Treatments RADIATION/THYROIDECTOMY Family Cancers Aunt-maternal with breast cancer at age 50; Aunt-maternal with breast cancer at age 45; Grandmother-maternal with breast cancer at age 46; Mother with lung cancer at age 80; Brother with prostate cancer at age 70. LOCATION: [facility] BREAST COMPOSITION: The breasts are almost entirely fatty. FINDINGS: DIAGNOSTIC CATEGORY 1--NEGATIVE. RIGHT BREAST: No significant suspicious finding. LEFT BREAST: No significant suspicious finding. RECOMMENDATIONS: ROUTINE MAMMOGRAM AND CLINICAL EVALUATION IN 12 MONTHS. PLEASE NOTE: A NORMAL MAMMOGRAM DOES NOT EXCLUDE THE POSSIBILITY OF BREAST CANCER. A CLINICALLY SUSPICIOUS PALPABLE LUMP SHOULD BE BIOPSIED. Dictated by: Hector Avery DO on 08/29/2024 at 15:56 Approved by: Hector Avery DO on 08/29/2024 at 15:57 Dictated By: Hector Avery M.D. Signed By: 08/29/24 1558 DD/ 1557 TD/TT: Practice Consultant: Procedure Note Radiology, Radiologist, MD - 08/29/2024 [place] [address] Mammography Report Signed Patient: GIA RUIZ LMR#: [id number] : 1950cct:[id number] Age/Sex: 74 / FADM Date: 08/29/24 Loc: MAMMO Attending Dr: Robert Ferreira D.O. Ordering Physician: Robert Ferreira D.O.Results: Date of Service: 08/29/24Follow Up: Procedure(s): MM tomosynthesis screening BI Accession Number(s): [id number] cc: Robert Ferreira D.O.; MILE SANCHEZ Patient Name: GIA RUIZ MR#: [id number] : 1950 Exam Date: 08/29/2024 Ordering Doctor: DR Robert Ferreira . RADIOLOGY REPORT PROCEDURE: MM TOMOSYNTHESIS SCREENING BI COMPARISON: MM TOMOSYNTHESIS SCREENING BI, 08/27/2023. MG MAMM [id number] CALOS CAD, 05/16/2022. MG MAMM SCREEN 3D CALOS CAD, 05/07/2021. MG MAMM BILSCRN W CAD DIG, 01/03/2014. INDICATIONS: Screening Calculator Name NCI Breast Cancer Risk Assessment Tool 5 Year Breast Cancer Risk 2.00% Lifetime Breast Cancer Risk 4.80% Personal Breast Cancer No Personal Ovarian Cancer No Treatments RADIATION/THYROIDECTOMY Family Cancers Aunt-maternal with breast cancer at age 50;Aunt-maternal with breast cancer at age 45; Grandmother-maternal with breast cancer atage 46; Mother with lung cancer at age 80; Brother with prostate cancer at age70. LOCATION: [facility] BREAST COMPOSITION: The breasts are almost entirely fatty. FINDINGS: DIAGNOSTIC CATEGORY 1--NEGATIVE. RIGHT BREAST: No significant suspicious finding. LEFT BREAST: No significant suspicious finding. RECOMMENDATIONS: ROUTINE MAMMOGRAM AND CLINICAL EVALUATION IN 12 MONTHS. PLEASE NOTE: A NORMAL MAMMOGRAM DOES NOT EXCLUDE THE POSSIBILITY OFBREAST CANCER. A CLINICALLY SUSPICIOUS PALPABLE LUMP SHOULD BE BIOPSIED. Dictated by: Hector Avery DO on 08/29/2024 at 15:56 Approved by: Hector Avery DO on 08/29/2024 at 15:57 Dictated By: Hector vAery M.D. Signed By:08/29/24 1558 DD/ 1557 TD/TT: Practice Consultant: [facility] DO [facility] Final Result from Last 3 Months or Most Recently Relevant to Health Maintenance Insurance MEDICARE [facility] Care Teams Pipefitter Welder Relationship Specialty Start Date End Date Mile Sanchez MD PCP - General Family Medicine 11/26/22
--- OUTSIDE RECORDS SUMMARY | 2025-02-07 15:26 | XMS_ITS | Encounter Summary ---
Author Organization [facility] Address [address] [place] [address] Care Team Providers Care Financial Systems Analyst Name Role Phone Marc Leggett MD Primary Care Provider [phone] Encounter Details Date Type Department Care Team (Late st Contact Info) Description 12/11/2022 External Result Encounter [facility] External Department Unsolicited Jr. Jorge Cárdenas, DO 112 [facility] [address] [place] [address] Social History Tobacco Use Types Packs/Day Years [...] [address] [place] [address] Timothy Bernstein PA 629 [facility] [place] [address] 11/30/2025 11:00 AM EDT Office Visit [facility] [place] [facility] [address] [place] [address] Elma Chávez MD [address] [place] [address] documented as of this encounter Procedures Procedure Name Priority Date/Time Associated Diagnosis Comments XR KNEE 1-2 VIEWS RIGHT 12/11/2022 11:35 AM EDT documented in this encounter Results * XR knee 1 or 2 views right (12/11/2022 11:35 AM EDT) Anatomical Region Laterality Modality Lower Extremities, Knee Right [facility] 12/11/2022 11:3 5 AM EDT Impressions 12/12/2022 10:25 AM EDT No acute findings Impression dictated by: Lloyd Schuler M.D.12/11/2022 11:40 AM Dictation Location: [place] [address] Transcribed By: [facility] 12/11/22 1140 Dictated By: Lloyd Schuler DO 12/11/22 1135 Signed By: <Electronically signed by Lloyd Schuler DO in OV> 12/11/22 1140 Narrative 12/12/2022 10:25 AM EDT [facility] Main [address] [address] XRay Report Signed Patient: Gia Ruiz MR#: [id number] : 1950 Acct:[id number] Age/Sex: 72 / F ADM Date: 12/11/22 Loc: [place] Room: Type: [facility] Attending Dr: Jorge Cárdenas Jr, DO Copies to: Jorge Cárdenas Jr, DO Ordering Provider: Jorge Cárdenas Jr, DO Date of Service: 12/11/22 XR/XR knee RT 2V: POST OP TOTAL 2 views RIGHT knee plain film COMPARISON: None HISTORY: Status post RIGHT total knee replacement ACUTE FINDINGS: None DEGENERATIVE CHANGE: Unremarkable SOFT TISSUE FINDINGS: Unremarkable postsurgical soft tissue changes. JOINT EFFUSION: None POSTOP CHANGES: No hardware failure loosening identified. BONE MINERALIZATION: Adequate XR/XR knee RT 2V Procedure Note Radiology, Radiologist, - 12/12/[address] [facility] Main [place] [address] [place] [address] XRay Report Signed Patient: Gia Ruiz LMR#: [id number] : 1950cct:[id number] Age/Sex: 72 / FADM Date: 12/11/22 Loc: [place] Room:Type: [facility] Attending Dr: Jorge Cárdenas Jr DO Copies to: Jorge Cárdenas Jr, DO Ordering Provider: Jorge Cárdenas Jr, DO Date of Service: 12/11/22 [...] Lloyd Schuler M.D.12/11/2022 11:40 AM Dictation Location: [place] [address] Transcribed By: [facility] 12/11/22 1140 Dictated By: Lloyd Schuler DO 12/11/22 1135 Signed By: <Electronically signed by Lloyd Schuler DO in OV> 12/11/22 1140 Jr. Jorge Cárdenas DO IMG XR PROCEDURES Final Result documented in this encounter Visit Diagnoses Not on filedocumented in this encounter Care Teams Financial Systems Analyst Relationship Specialty Start Date End Date Marc Leggett MD PCP - General Family Medicine 11/26/22 documented as of this encounter
--- OUTSIDE RECORDS SUMMARY | 2025-02-07 15:26 | XMS_ITS | Encounter Summary ---
Author Organization [facility] Address [address] [facility] [place] [address] Care Team Providers Care Electric Fan Assembler Name Role Phone Marc Legegtt MD Primary Care Provider Encounter Details Date Type Department Care Team (Late st Contact Info) Description 10/01/2023 External Result Encounter [facility] External Department Unsolicited Timothy Bernstein, PA [address] [place] [address] Social History Tobacco Use Types [...] [address] [place] [address] Timothy Bernstein, PONCHO [address] [facility] [address] 11/30/2025 11:00 AM EDT Office Visit [facility] [place] [facility] [address] [place] [address] Elma Chávez MD [address] [place] [address] documented as of this encounter Procedures Procedure Name Priority Date/Time Associated Diagnosis Comments XR TIBIA/FIBULA BI 10/01/2023 5: 03 PM EDT documented in this encounter Results * XR TIBIA/FIBULA BI (10/01/2023 5:03 PM EDT) Anatomical Region Laterality Modality Radiographic Marquita ging 10/01/2023 5:03 PM EDT Impressions 10/01/2023 5:07 PM EDT Moderate left knee degeneration. Uncomplicated right knee arthroplasty. Adequate alignment. Mild additional degeneration. Impression dictated by: Lloyd Schuler M.D.10/01/2023 5:05 PM Dictation Location: [place] [address] Transcribed By: [facility] 10/01/231704 Dictated By: Lloyd Schuler DO 10/01/231702 Signed By: <Electronically signed by Lloyd Schuler DO in OV> 10/01/23 1705 Narrative 10/01/2023 5:07 PM EDT [facility] Main [place] [address] [place] [address] XRay Report Signed Patient: Gia Ruiz MR#: [id number] : 1950 Acct:[id number] Age/Sex: 73 / F ADM Date: 10/01/23 Loc: ICXD Room: Type: REG CLI Attending Dr: Timothy Bernstein PA-C Copies to: Timothy Bernstein PA-C Ordering Provider: Timothy Bernstein PA-C Date of Service: 10/01/23 XR/XR femur BI: Z01.818 ([id number]) XR/XR tibia/fibula BI: Z01.818 Bilateral femur and tibia and fibula HISTORY: Presurgical assessment for left total knee arthroplasty. Adequate hip and SI joints. Intact femurs. No fracture. Unremarkable right knee arthroplasty. Moderate right knee degeneration. Intact tibia and fibula. No fracture. Adequate alignment. Mild bilateral knee degeneration. No soft tissue abnormality. XR/XR femur BI Procedure Note Radiology, Radiologist, - 10/01/2023 [facility] Main [place] [address] [place] [address] XRay Report Signed Patient: Gia Ruiz LMR#: [id number] : 1950cct:[id number] Age/Sex: 73 / FADM Date: 10/01/23 Loc: ICXD Room:Type: REG CLI Attending Dr: Timothy Bernstein PA-C Copies to: Timothy Bernstein PA-C Ordering Provider: Timothy Bernstein PA-C Date of Service: 10/01/23 XR/XR femur BI: Z01.818 ([id number]) XR/XR tibia/fibula BI: Z01.818 Bilateral femur and tibia and fibula HISTORY: Presurgical assessment for left total knee arthroplasty. Adequate hip and SI joints. Intact femurs. No fracture. Unremarkable rightknee arthroplasty. Moderate right knee degeneration. Intact tibia and fibula. No fracture. Adequate alignment. Mild bilateralknee degeneration. No soft tissue abnormality. XR/XR femur BI IMPRESSION: Moderate left knee degeneration. Uncomplicated right knee arthroplasty.Adequate alignment. Mild additional degeneration. Impression dictated by: Lloyd Schuler M.D.10/01/2023 5:05 PM Dictation Location: [place] [address] Transcribed By: [facility] 10/01/23 4147 Dictated By: Lloyd Schuler DO 10/01/23 1703 Signed By: <Electronically signed by Lloyd Schuler DO in OV> 10/01/23 1705 us Timothy ISAAC IMG XR PROCEDURES Final Resul t documented in this encounter Visit Diagnoses Not on filedocumented in this encounter Care Teams Electric Fan Assembler Relationship Specialty Start Date End Date Marc Leggett MD PCP - General Family Medicine 11/26/22 documented as of this encounter
--- OUTSIDE RECORDS SUMMARY | 2025-02-07 15:26 | XMS_ITS | Patient Health Record ---
Author Organization [facility] Address [address] [facility] [address], [place] [address] Care Team Providers Care Public Speaking Professor Name Role Phone Garcia Story Unavailable [phone] Allergies Allergen (clinical drug ingredient) Drug/Non Drug Allergy documented on EMR Reaction Allergy Type Onset Date Status acetaminophen / oxycodone Percocet vomiting Drug Allergy Active Substance with sulfonamide structure and antibacterial mechanism of action (substance) Sulfa Antibiotics vomiting Drug Allergy Active Reason For Referral No Information Medications Medication SIG (Take, Route, Frequency, Duration) Notes Start Date End Date Status metFORMIN HCl ER 500 MG Tablet Extended Release 24 Hour Oral; Duration: 90 Days Acti ve Omeprazole 20 MG Capsule Delayed Release Oral; Duration: 90 Days A ctive Baclofen 10 MG Tablet Oral; Duration: 90 Days Active Levothyroxine Sodium 125 MCG Tablet Oral; Duration: 90 Days Acti ve Atorvastatin Calcium 20 MG Tablet Oral; Duration: 90 Days Acti ve Humira (2 Pen) 40 MG/0.4ML Auto-injector Kit Subcutaneous; Duration: 28 Days Active Losartan Potassium-HCTZ 100-25 MG Tablet Oral; Duration: 90 Days Active Magnesium Active Aspirin 81 81 MG Tablet Delayed Release 1 tablet Orally Once a day Active Calcium Chews/Vit D/Probiotics Active CoQ-10 200 MG Capsule as directed Orally Active Iron Active Vitamin D3 Active Fish Oil 1200 MG Capsule 1 capsule Orall y Once a day Active Multivitamin Women 50+ Active Vitamin C Active Cranberry Active Methyl B-12 Active Zinc Active Ondansetron HCl 8 MG Tablet Oral; Duration: 7 Days Activ e Mounjaro 7.5 MG/0.5ML Solution Auto-injector INJECT 7.5MG SUBCUTANEOUSLY ONCE A WEEK Subcutaneous; Duration: 28 Days Active Probiotic-Prebiotic Active Cephalexin 500 MG Capsule Oral; Duration: 10 Days Active Acetaminophen Active Liothyronine Sodium 5 MCG Tablet Oral; Duration: 90 Days Acti ve Social History Section Notes: Patient is a former smoker. 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 Discomfort with certain shoes, more stable when barefoot. Uses arch supports and insoles to improve comfort. - Advised use of arch supports and insoles as tolerated. - Discussed footwear options to maximize comfort and stability. 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 Difficulty with left ankle stability when walking; ankle 'goes in' with weight bearing. Completed physical therapy for knee about 6 weeks ago. Uses stretching exercises for spasticity. No falls or significant imbalance reported. - Recommended ankle brace for stability during increased activity. - Encouraged continued stretching exercises for spasticity. - Discussed option of physical therapy if symptoms persist or worsen. 12/30/2024 Presence of right artificial knee joint (ICD-10 - Z96.651) Right knee replacement in 2022, left knee replacement in 2023. Completed physical therapy for knee about 6 weeks ago. - No new interventions required at this time. Plan Of Treatment No Information Insurance Providers Payer Name Payer Address Payer Phone Subscriber Number Group Number Insured Name Patient Relationship to Insured Coverage Start Date Coverage End Date [employer] of [place] J15 [address] [place], [place] [id number] Gia Ruiz Self - patient is the insured Medical (General) History Medical History History ICD Code GERD Hypertension Diabetes Surgical History Surgery Date(Month/Year) thyrodoidectomy Pelvic Surgery 2021 Right Knee Replacement 2022 Left Knee Replacement 2023
--- OUTSIDE RECORDS SUMMARY | 2025-02-07 15:26 | XMS_ITS | Encounter Summary ---
Author Organization [facility] Address [address] [place] [address] Care Team Providers Care Fuel Tank Sealer And Tester Name Role Phone Marc Leggett MD Primary Care Provider [phone] Encounter Details Date Type Department Care Team (Late st Contact Info) Description 09/07/2024 Results Follow-Up [facility] [address] [place] [address] Timothy Bernstein, PA [address] [facility] [place] [address] ECG 12 lead Social History Tobacco Use Types Packs/Day Years [...] Orthopaedics [address] [place] [address] Timothy Bernstein PA [address] [place] [address] 11/30/2025 11:00 AM EDT Office Visit [facility] [place] [facility] [address] [place] [address] Elma Chávez MD [address] [place] [address] documented as of this encounter Visit Diagnoses Not on filedocumented in this encounter Care Teams Fuel Tank Sealer And Tester Relationship Specialty Start Date End Date Marc Leggett MD PCP - General Family Medicine 11/26/22 documented as of this encounter
--- OUTSIDE RECORDS SUMMARY | 2025-02-07 15:26 | XMS_ITS | Encounter Summary ---
Author Organization [facility] Address [address] [place] [address] Care Team Providers Care Collection Systems Foreman Name Role Phone Marc Leggett MD Primary Care Provider [phone] Encounter Details Date Type Department Care Team (Late st Contact Info) Description 08/28/2023 Clinisync Result Encounter [facility] External Department Unsolicited Robert Ferreira, DO 102 [facility] Felisha C Joel, [facility] Social History Tobacco Use Types Packs/Day Years [...] [address] [place] [address] Timothy Bernstein, PONCHO [address] [place] [address] 11/30/2025 11:00 AM EDT Office Visit [facility] [place] [facility] [address] [place] [address] Elma Chávez MD [address] [place] [address] documented as of this encounter Procedures Procedure Name Priority Date/Time Associated Diagnosis Comments MM TOMOSYNTHESIS SCREENING BI 08/28/2023 2:08 PM EDT documented in this encounter Results * MM TOMOSYNTHESIS SCREENING BI (08/28/2023 2:08 PM EDT) Anatomical Region Laterality Modality Other 08/28/2023 2:08 PM EDT Narrative 08/28/2023 2:09 PM EDT The [address] [address] Mammography Report Signed Patient: GIA BRYANT MR#: [id number] : 1950 Acct:[id number] Age/Sex: 73 / F ADM Date: 08/27/23 Loc: MAMMO Attending Dr: Robert Ferreira D.O. Ordering Physician: Robert Ferreira D.O. Results: Date of Service: 08/27/23 Follow Up: Procedure(s): MM tomosynthesis screening BI Accession Number(s): [id number] cc: Robert Ferreira D.O.; Physician,Non-Staff MBreanna Patient Name: GIA BRYANT MR#: [id number] : 1950 Exam Date: 08/27/2023 Ordering Doctor: DR Robert Ferreira . RADIOLOGY REPORT PROCEDURE: MM TOMOSYNTHESIS SCREENING BI COMPARISON: MG MAMM SCREEN 3D CALOS CAD, 05/16/2022. MG MAMM SCREEN 3D CALOS CAD, 05/07/2021. MG MAMM SCREEN CALOS W CAD, 04/23/2020. MG MAMM CALOS SCRN W CAD DIG, 01/03/2014. INDICATIONS: screening Calculator Name NCI Breast Cancer Risk Assessment Tool 5 Year Breast Cancer Risk 2.00% Lifetime Breast Cancer Risk 5.10% Personal Breast Cancer No Personal Ovarian Cancer No Treatments RADIATION/THYROIDECTOMY Family Cancers Aunt-maternal with breast cancer at age 50; Aunt-maternal with breast cancer at age 45; Grandmother-maternal with breast cancer at age 46; Mother with lung cancer at age 80; Brother with prostate cancer at age 70. LOCATION: The [facility] BREAST COMPOSITION: Almost entirely fatty. FINDINGS: DIAGNOSTIC CATEGORY 1--NEGATIVE. RIGHT BREAST: No significant suspicious finding. No significant change has occurred. LEFT BREAST: No significant suspicious finding. No significant change has occurred. RECOMMENDATIONS: ROUTINE MAMMOGRAM AND CLINICAL EVALUATION IN 12 MONTHS. PLEASE NOTE: A NORMAL MAMMOGRAM DOES NOT EXCLUDE THE POSSIBILITY OF BREAST CANCER. A CLINICALLY SUSPICIOUS PALPABLE LUMP SHOULD BE BIOPSIED. Dictated by: Vinicius Marte M.D. on 08/28/2023 at 13:50 Approved by: Vinicius Marte M.D. on 08/28/2023 at 14:08 Dictated By: Vinicius Marte M.D. Signed By: 08/28/23 1409 DD/ 1408 TD/TT: Counter Dish Carrier: Procedure Note Radiology, Radiologist, MD - 08/28/2023 [place] [address] Mammography Report Signed Patient: GIA BRYANT LMR#: [id number] : 1950cct:[id number] Age/Sex: 73 / FADM Date: 08/27/23 Loc: MAMMO Attending Dr: Robert Ferreira D.O. Ordering Physician: Robert Ferreira D.O.Results: Date of Service: 08/27/23Follow Up: Procedure(s): MM tomosynthesis screening BI Accession Number(s): [id number] cc: Robert Ferreira D.O.; Physician,Non-Staff Keny Patient Name: GIA BRYANT MR#: [id number] : 1950 Exam Date: 08/27/2023 Ordering Doctor: DR Robert Ferreira . RADIOLOGY REPORT PROCEDURE: MM TOMOSYNTHESIS SCREENING BI COMPARISON: MG MAMM SCREEN 3D CALOS CAD, 05/16/2022. MG MAMM SCREEN 3DBIL CAD, 05/07/2021. MG MAMM SCREEN CALOS W CAD, 04/23/2020. MG MAMM CALOS SCRNW CAD DIG, 01/03/2014. INDICATIONS: screening Calculator Name NCI Breast Cancer Risk Assessment Tool 5 Year Breast Cancer Risk 2.00% Lifetime Breast Cancer Risk 5.10% Personal Breast Cancer No Personal Ovarian Cancer No Treatments RADIATION/THYROIDECTOMY Family Cancers Aunt-maternal with breast cancer at age 50;Aunt-maternal with breast cancer at age 45; Grandmother-maternal with breast cancer atage 46; Mother with lung cancer at age 80; Brother with prostate cancer at age70. LOCATION: The [facility] BREAST COMPOSITION: Almost entirely fatty. FINDINGS: DIAGNOSTIC CATEGORY 1--NEGATIVE. RIGHT BREAST: No significant suspicious finding. No significant changehas occurred. LEFT BREAST: No significant suspicious finding. No significant changehas occurred. RECOMMENDATIONS: ROUTINE MAMMOGRAM AND CLINICAL EVALUATION IN 12 MONTHS. PLEASE NOTE: A NORMAL MAMMOGRAM DOES NOT EXCLUDE THE POSSIBILITY OFBREAST CANCER. A CLINICALLY SUSPICIOUS PALPABLE LUMP SHOULD BE BIOPSIED. Dictated by: Vinicius Marte M.D. on 08/28/2023 at 13:50 Approved by: Vinicius Marte M.D. on 08/28/2023 at 14:08 Dictated By: Vinicius Marte M.D. Signed By:08/28/23 1409 DD/ 1408 TD/TT: Counter Dish Carrier: us Robert Ferreira DO [facility] Final Result documented in this encounter Visit Diagnoses Not on filedocumented in this encounter Care Teams Collection Systems Foreman Relationship Specialty Start Date End Date Marc Leggett MD PCP - General Family Medicine 11/26/22 documented as of this encounter
--- OUTSIDE RECORDS SUMMARY | 2025-02-07 15:26 | XMS_ITS | Encounter Summary ---
Author Organization [facility] Address [address] [place] [address] Care Team Providers Care Gaming Investigator Name Role Phone Marc Leggett MD Primary Care Provider [phone] Reason for Visit * Reason Comments Med Change Request Encounter Details Date Type Department Care Team (Late st Contact Info) Description 10/23/2023 Refill [facility] [address] [place] [address] Timothy Bernstein PA [address] [place] [address] Pre-op examination; Post-operative pain Social History Tobacco Use Types Packs/Day Years [...] AM EDT documented as of this encounter Miscellaneous Notes * Telephone Encounter - PONCHO Ulloa - 10/30/2023 2:31 PM EDT Med refill sent Oarrs reviewed. RX sent to pharmacy. Please notify pt. Take least effective dose for pain control. * Telephone Encounter - RT Nina - 10/30/2023 2:20 PM EDT Patient spoke with Rhea STEPHENSON stating that she will run out of pain med on Thursday afternoon and was asking if we could refill her pain med to ensure she does not run out. Left TKA sx on 10/22/23 - Patient given NORCO on 10/27/23 Pharm: [facility] * Telephone Encounter - PONCHO Ulloa - 10/27/2023 10:06 AM EDT Oarrs reviewed. RX sent to pharmacy. Please notify pt. Take least effective dose for pain control. Refill request per Rhea Valles> documented in this encounter Plan of Treatment Upcoming Encounters Date Type Department Care Team (Late st Contact Info) Description 10/26/2025 10:30 AM EDT Office Visit [facility] [address] [place] [address] Timothy Bernstein PA [address] [place] [address] 11/30/2025 11:00 AM EDT Office Visit [facility] [address] [place] [address] Elma Chávez MD [address] [place] [address] documented as of this encounter Visit Diagnoses Diagnosis Pre-op examination Post-operative pain Other acute postoperative pain documented in this encounter Care Teams Gaming Investigator Relationship Specialty Start Date End Date Marc Leggett MD PCP - General Family Medicine 11/26/22 documented as of this encounter
--- OUTSIDE RECORDS SUMMARY | 2025-02-07 15:26 | XMS_ITS | Encounter Summary ---
Author Organization [facility] Address [address] [place] [address] Care Team Providers Care News Broadcaster Name Role Phone Marc Leggett MD Primary Care Provider [phone] Encounter Details Date Type Department Care Team (Late st Contact Info) Description 09/01/2024 Orders Only [facility] [address] [place] [address] Ambreen Vidales LPN [address] [id number] Social History Tobacco Use Types Packs/Day Years [...] Orthopaedics [address] [place] [address] Timothy Bernstein PA [address] [place] [address] 11/30/2025 11:00 AM EDT Office Visit [facility] [address] [place] [address] Elma Chávez MD [address] [place] [address] documented as of this encounter Procedures Procedure Name Priority Date/Time Associated Diagnosis Comments PAP SMEAR Routine 08/22/2024 12:00 AM EDT documented in this encounter Results * Pap Smear (08/22/2024 12:00 AM EDT) Swab Cervical swab / Unknown us Robert Jhon DO LAB CYTOLOGY ORDERABLES Final Re sult EXTERNAL LAB documented in this encounter Visit Diagnoses Not on filedocumented in this encounter Care Teams News Broadcaster Relationship Specialty Start Date End Date Marc Leggett MD PCP - General Family Medicine 11/26/22 documented as of this encounter
--- OUTSIDE RECORDS SUMMARY | 2025-02-07 15:26 | XMS_ITS | Encounter Summary ---
Author Organization [facility] Address [address] [place] [address] Care Team Providers Care Patient Service Representative Name Role Phone Marc Leggett MD Primary Care Provider [phone] Encounter Details Date Type Department Care Team (Late st Contact Info) Description 11/24/2022 External Result Encounter [facility] External Department Unsolicited Jr. Jorge Cárdenas, DO 112 [facility] [address] [place] [address] Social History Tobacco Use Types Packs/Day Years Used Date Smoking Tobacco: Never Assessed Comments Unknown Sex and Gender Information Value Date Recorded [...] Orthopaedics [address] [place] [address] Timothy Bernstein PA [address] [place] [address] 11/30/2025 11:00 AM EDT Office Visit [facility] [address] [place] [address] Elma Chávez MD [address] [place] [address] documented as of this encounter Procedures Procedure Name Priority Date/Time Associated Diagnosis Comments ECG 12-LEAD 11/24/2022 9:26 AM EDT documented in this encounter Results * ECG 12 lead (11/24/2022 9:26 AM EDT) 11/24/2022 9:26 AM EDT [facility] - 11/25/2022 12:19 PM EDT [facility] Main [address] [address] Electrocardiograph Report Signed Patient: Gia Ruiz MR#: [id number] : 1950 Acct:[id number] Age/Sex: 72 / F ADM Date: 11/24/22 Loc: Room: Type: [facility] Attending Dr: Jorge Cárdenas Jr, DO Ordering Provider: Jorge Cárdenas Jr, DO Date of Service: 11/24/2203/09/908 [...] No previous ECGs available Confirmed by NUHA HOFFMAN MD ([id number]) on 11/25/2022 10:34:37 AM Referred By: JAY Electronically Signed By:NUHA HOFFMAN MD Transcribed By: AMRITA Signed By Nuha Hoffman MD 0 11/25/22 1034 Procedure Note Nuha Hoffman MD - 11/25/2022 [facility] Main [facility] [address] [place] [address] Electrocardiograph Report Signed Patient: Gia Ruiz LMR#: [id number] : 1950cct:[id number] Age/Sex: 72 / FADM Date: 11/24/22 Loc: PS Room:Type: [facility] Attending Dr: Jorge Cárdenas Jr, DO Ordering Provider: Jorge Cárdenas Jr, DO Date of Service: 11/24/2203/09/908 [...] ECG No previous ECGs available Confirmed by BLANQUITA MOSLEY, NUHA ([id number]) on 11/25/2022 10:34:37 AM Referred By: JAY Electronically Signed By:MAURILIO MOSLEY Transcribed By: AMRITA Signed By Nuha Hoffman MD0 11/25/22 1034 Jr. Jorge Cárdenas DO ECG ORDERABLES Final R esult [facility] [address] [place] [address], documented in this encounter Visit Diagnoses Not on filedocumented in this encounter Care Teams Patient Service Representative Relationship Specialty Start Date End Date Marc Leggett MD PCP - General Family Medicine 11/26/22 documented as of this encounter
--- OUTSIDE RECORDS SUMMARY | 2025-02-07 15:26 | XMS_ITS | Encounter Summary ---
Author Organization [facility] Address [address] [place] [address] Care Team Providers Care Key Attendant Name Role Phone Marc Leggett MD Primary Care Provider [phone] Encounter Details Date Type Department Care Team (Latest Contact Info) Description 09/08/2024 Results Follow-Up [facility] [address] [place] [address] Timothy Bernstein, PA [address] [place] [address] Hemoglobin a1c with eag Social History Tobacco Use Types Packs/Day Years [...] Orthopaedics [address] [place] [address] Timothy Bernstein PA [address] [place] [address] 11/30/2025 11:00 AM EDT Office Visit [facility] [address] [place] [address] Elma Chávez MD [address] [place] [address] documented as of this encounter Visit Diagnoses Not on filedocumented in this encounter Care Teams Key Attendant Relationship Specialty Start Date End Date Marc Leggett MD PCP - General Family Medicine 11/26/22 documented as of this encounter
--- OUTSIDE RECORDS SUMMARY | 2025-02-07 15:26 | XMS_ITS | Encounter Summary ---
Author Organization [facility] Address [address] [place] [address] Care Team Providers Care Cotton Seed Culler Name Role Phone Marc Leggett MD Primary Care Provider [phone] Encounter Details Date Type Department Care Team (Late st Contact Info) Description 02/23/2023 Abstract [facility] [address] [facility] [address] [place] [address] Timothy Bernstein, PA [address] [place] [address] Social History Tobacco Use Types Packs/Day Years Used Date Smoking Tobacco: Never Smokeless Tobacco: Never Tobacco Cessation:Counseling Given: Not Answered Alcohol Use Standard Drinks/Week Comments Yes 1 (1 standard drink = 0.6 oz pure alcohol) caffeine intake: 3-4 cups per day. Comments No Sex and Gender Information Value Date Recorded Sex Assigned at Female 11/19/2022 11:20 AM EDT Legal Sex Female 7:12 PM EDT Gender Identity Female 11/19/2022 11:20 AM EDT Sexual Orientation Asexual 11/19/2022 11 :20 AM EDT COVID-19 Exposure Response Date Recorded In the last 10 days, have yo u been in contact with someone who was confirmed or suspected to have Coronavirus/COVID-19? No / Unsure 02/15/2023 2:04 PM EDT documented as of this encounter Plan of Treatment Upcoming Encounters Date Type Department Care Team (Late st Contact Info) Description 10/26/2025 10:30 AM EDT Office Visit [facility] [address] [place] [address] Timothy Bernstein, PA [address] [place] [address] 11/30/2025 11:00 AM EDT Office Visit [facility] [address] [place] [address] Elma Chávez MD [address] [place] [address] documented as of this encounter Visit Diagnoses Not on filedocumented in this encounter Care Teams Cotton Seed Culler Relationship Specialty Start Date End Date Marc Leggett MD PCP - General Family Medicine 11/26/22 documented as of this encounter
--- OUTSIDE RECORDS SUMMARY | 2025-02-07 15:26 | XMS_ITS | Encounter Summary ---
Author Organization [facility] Address [address] [place] [address] Care Team Providers Care Paper Finisher Name Role Phone Marc Leggett MD Primary Care Provider [phone] Encounter Details Date Type Department Care Team (Late st Contact Info) Description 09/07/2024 External Result Encounter [facility] External Department Unsolicited Timothy Bernstein, PA [address] [place] [address] Social History Tobacco Use Types [...] [address] [place] [address] Timothy Bernstein PA [address] [facility] [place] [phone] 11/30/2025 11:00 AM EDT Office Visit [facility] [address] [place] [address] Elma Chávez MD [address] [place] [address] documented as of this encounter Procedures Procedure Name Priority Date/Time Associated Diagnosis Comments ECG 12-LEAD 09/07/2024 12:31 PM EDT documented in this encounter Results * ECG 12 lead (09/07/2024 12:31 PM EDT) 09/07/2024 12:3 1 PM EDT [facility] - 09/07/2024 4:51 PM EDT [facility] Main [address] [address] Electrocardiograph Report Signed Patient: Gia Ruiz MR#: [id number] : 1950 Acct:[id number] Age/Sex: 74 / F ADM Date: 09/07/24 Loc: Room: Type: [facility] Attending Dr: Timothy Bernstein PA-C Ordering Provider: Timothy Bernstein PA-C Date of Service: 09/07/24 ECG/ECG 12 lead ECG: see order Copies to: Test Reason : Blood Pressure : */* mmHG Vent. Rate : 66 BPM Atrial Rate : 66 BPM P-R Int : 172 ms QRS Dur : 88 ms QT Int : 434 ms P-R-T Axes : 63 24 57 degrees QTcB Int : 454 ms Normal sinus rhythm Normal ECG When compared with ECG of 30-Sep-2023 12:37, No significant change was found Confirmed by JOSE MCFADDEN MD, FACC ([id number]) on 09/07/2024 4:51:09 PM Referred By: Electronically Signed By: JOSE MCFADDEN MD, FACC Transcribed By: MUS Signed By Jose Mcfadden MD, [facility] 09/07/24 1651 Procedure Note Jose Mcfadden MD - 09/07/2024 [facility] Main [place] [id number] Electrocardiograph Report Signed Patient: Gia Ruiz LMR#: [id number] : 1950cct:[id number] Age/Sex: 74 / FADM Date: 09/07/24 Loc: Room:Type: [facility] Attending Dr: Timothy Bernstein PA-C Ordering Provider: Timothy Bernstein PA-C Date of Service: 09/07/24 ECG/ECG 12 lead ECG: see order Copies to: Test Reason : Blood Pressure : */* mmHG Vent. Rate : 66 BPM Atrial Rate : 66 BPM P-R Int : 172 ms QRS Dur : 88 ms QT Int : 434 ms P-R-T Axes : 63 24 57 degrees QTcB Int : 454 ms Normal sinus rhythm Normal ECG When compared with ECG of 30-Sep-2023 12:37, No significant change was found Confirmed by JOSE MCFADDEN MD, FACC ([id number]) on 09/07/2024 4:51:09 PM Referred By: Electronically Signed By: JOSE MCFADDEN MD [facility] Transcribed By: MUS Signed By Jose Mcfadden MD, [facility] 09/07/24 581 us Timothy ISAAC ECG ORDERABLES Final Result [address] [address], documented in this encounter Visit Diagnoses Not on filedocumented in this encounter Care Teams Paper Finisher Relationship Specialty Start Date End Date Marc Leggett MD PCP - General Family Medicine 11/26/22 documented as of this encounter
--- OUTSIDE RECORDS SUMMARY | 2025-02-07 15:26 | XMS_ITS | Clinical Summary ---
Author Organization [facility] Address [address] [place] [address], [address] [place] [address] Care Team Providers Care Director Of Transportation Name Role Phone Unavailable Primary Care Provider Unavailabl e Social History Tobacco Use Types Packs/Day Years Used Date Smoking Tobacco: Never Assessed Comments Unknown Sex and Gender Information Value Date Recorded Sex Assigned at Not on file Legal Sex Female 6:41 PM EST Gender Identity Not on file Sexual Orientation Not on file Plan of Treatment Not on file
--- OUTSIDE RECORDS SUMMARY | 2025-02-07 15:26 | XMS_ITS | Clinical Summary ---
Author Organization [facility] Address [address] [place] [address] Care Team Providers Care Customs Port Director Name Role Phone Unavailable Primary Care Provider Unavailabl e Social History Tobacco Use Types Packs/Day Years Used Date Smoking Tobacco: Never Assessed Comments Unknown Sex and Gender Information Value Date Recorded Sex Assigned at Not on file Legal Sex Female 9:26 PM EDT Gender Identity Not on file Sexual Orientation Not on file Last Filed Vital Signs Vital Sign Reading Time Taken Comments Blood Pressure 129/90 03/12/2020 3:14 PM EDT Pulse - - Temperature - - Respiratory Rate - - Oxygen Saturation 99% 03/12/2020 2:49 PM EDT Inhaled Oxygen Concentration - - Weight 92.1 kg (203 lb) 03/12/2020 2:47 PM EDT Height 157.5 cm (5' 2 ) 03/12/2020 2:45 PM EDT Body Mass Index 37.13 03/12/2020 2:45 PM EDT Plan of Treatment Not on file
--- OUTSIDE RECORDS SUMMARY | 2025-02-07 15:26 | XMS_ITS | Clinical Summary ---
Author Organization [facility] Address [facility] [place] [id number] Care Team Providers Care Regulatory Associate Name Role Phone Flor Sutherland MD Primary Care Provider [phone] Allergies No known active allergies Medications UNIRETIC 7.5 MG-12.5 MG ORAL TAB Take one(1) tablet daily. 0 5 Active MULTIVITAMIN ORAL TAB Take one(1) tablet daily. 0 5 Active COMPOUNDED PRESCRIPTION 2 tabs per day -calcium Citate 630 mg Calcium and 400 IU vit D 0 5 Active Cranberry 500 mg ORAL Cap take two tabs twice daily 0 7 Active clonidine hcl(CATAPRES 0.1 MG TAB) Take one(1) tablet daily. 0 0 7 Active ZINC 50 MG CAP Take one(1) tablet daily. 0 0 7 Active MELATONIN 3 MG TAB Take one(1) tablet daily. 0 0 7 Active RANITIDINE 75 MG TAB one tab at HS 0 0 7 Active levothyroxine sodium(SYNTHROID 150 MCG TAB) Take one(1) tablet daily. 90 3 7 Active Active Problems Problem Noted Date Diagnosed Date Malignant neoplasm of thyroid gland 04/13/2006 Family History Medical History Relation Comments Breast Cancer Maternal Aunt 1 Breast Cancer Maternal Aunt 2 Ischemic Heart Disease Maternal Grandfather At a ge 46 Breast Cancer Maternal Grandmother Diabetes Mother DM-2, borderline per patient Hypertension Mother At age 49 Stroke Paternal Grandfather Thyroid Paternal Grandmother Goiter Relation Status Comments Maternal Aunt 1 Maternal Aunt 2 Maternal Grandfather Maternal Grandmother Mother Paternal Grandfather Paternal Grandmother Social History Tobacco Use Types Packs/Day Years Used Date Smoking Tobacco: Former Cigarettes Q uit: 05/13/2002 Alcohol Use Standard Drinks/Week Comments Yes 0 (1 standard drink = 0.6 oz pur e alcohol) rarely Comments No Sex and Gender Information Value Date Recorded Sex Assigned at Not on file Legal Sex Female 7:18 AM EST Gender Identity Not on file Sexual Orientation Not on file 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 Not on file Not on file Last Filed Vital Signs Vital Sign Reading Time Taken Comments Blood Pressure 128/88 04/12/2007 4:52 PM EST Pulse 60 04/12/2007 4:52 PM EST Temperature - - Respiratory Rate - - Oxygen Saturation - - Inhaled Oxygen Concentration - - Weight 97 kg (213 lb 12 oz) 04/12/2007 4:[address] Height 161.3 cm (5' 3.5 ) 04/12/2007 4:52 PM EST Body Mass Index 37.27 04/12/2007 4:52 PM EST Plan of Treatment Health Maintenance Due Date Last Done Comments Anxiety Screening 1969 Depression Screening 1969 Hepatitis C Screening 1969 DTaP,Tdap,Td Vaccine (1 - Tdap) [address] Colonography 02/26/1996 Cologuard (FIT-DNA) 02/26/1996 Colonoscopy 02/26/1996 Colorectal Cancer Screening 02/26/1996 Diabetes Screening 02/26/1996 Fecal Occult Blood 02/26/1996 Lipid Screening 02/26/1996 Sigmoidoscopy 02/26/1996 Pneumococcal Vaccine: 50+ (1 of 1 - PCV) 2001 Shingrix Vaccine (1 of 2) 2001 Bone Density Screening 02/26/2016 Advance Directive Discussion 05/18/2024 Influenza Vaccine (#1) 2025 RSV Vaccine (1 - 1-dose 75+ series) 2026 Insurance O [employer] PPO Care Teams Regulatory Associate Relationship Specialty Start Date End Date Flor Sutherland MD [address] [place] [address] PCP - General 04/12/07
--- OUTSIDE RECORDS SUMMARY | 2025-02-07 15:26 | XMS_ITS | Encounter Summary ---
Author Organization [facility] Address [address] [facility] [place] [address] Care Team Providers Care Landscape Technician Name Role Phone Marc Leggett MD Primary Care Provider [phone] Encounter Details Date Type Department Care Team (Late st Contact Info) Description 11/01/2023 Telephone [facility] [address] [facility] [address] [place] [address] Rhea Pang, PT [address] [facility] [address] [place] [address] Social History Tobacco Use Types Packs/Day Years [...] 10/26/2025 10:30 AM EDT Office Visit [facility] [address] [place] [address] Timothy Bernstein, PA [address] [place] [address] 11/30/2025 11:00 AM EDT [facility] [address] [place] [address] Elma Chávez MD [address] [place] [address] documented as of this encounter Visit Diagnoses Not on filedocumented in this encounter Care Teams Landscape Technician Relationship Specialty Start Date End Date Marc Leggett MD PCP - General Family Medicine 11/26/22 documented as of this encounter
--- OUTSIDE RECORDS SUMMARY | 2025-02-07 15:26 | XMS_ITS | Encounter Summary ---
Author Organization [facility] Address [address] [place] [address] Care Team Providers Care Flavorings Compounder Name Role Phone Marc Leggett MD Primary Care Provider [phone] Encounter Details Date Type Department Care Team (Latest Contact Info) Description 09/07/2024 Results Follow-Up [facility] [address] [place] [address] Timothy Bernstein, PA [address] [place] [address] Urinalysis with reflex microscopic Social History Tobacco Use Types Packs/Day Years [...] Orthopaedics [address] [place] [address] Timothy Bernstein, PONCHO [address] [place] [address] 11/30/2025 11:00 AM EDT Office Visit [facility] [address] [place] [address] Elma Chávez MD [address] [place] [address] documented as of this encounter Visit Diagnoses Not on filedocumented in this encounter Care Teams Flavorings Compounder Relationship Specialty Start Date End Date Marc Leggett MD PCP - General Family Medicine 11/26/22 documented as of this encounter
--- OUTSIDE RECORDS SUMMARY | 2025-02-07 15:26 | XMS_ITS | Clinical Summary ---
Author Organization [facility] Address [id number] [address] [place] [address] Care Team Providers Care Adult Basic Education Instructor Name Role Phone Unavailable Primary Care Provider Unavailabl e Allergies No known active allergies Medications atorvastatin (LIPITOR) 20 mg tablet Take 20 mg by mouth daily. Active levothyroxine (SYNTHROID) 125 MCG tablet Take 125 mcg by mouth daily. Active losartan-hydroC HLOROthiazide (HYZAAR) 50-12.5 mg per tablet Take 1 tablet by mouth daily. Active adalimumab 40 mg/0.4 mL pen injector kit Inject 40 mg under the skin. Every 2 weeks Active omeprazole (PriLOSEC) 20 mg capsule Take 20 mg by mouth daily. Active metFORMIN (GLUCOPHAGE) 500 mg tablet Take by mouth 3 (three) times a day. 1 tablet In the morning and 2 tablets in the PM Active traMADoL (ULTRAM) 50 mg tablet Take 50 mg by mouth every 6 (six) hours as needed for pain. Active aspirin 81 mg Take 81 mg by mouth daily. Active gabapentin (NEURONTIN) 100 mg capsule Take 100 mg by mouth daily. At bedtime Active calcium carbonate (calcium carbonate EX) 300 mg (750 mg) tablet,chewable Chew 300 mg and swallow. Active NON FORMULARY Magnesium 500mg daily Active omega 4-bgz-avr-fish oil (FISH OIL) 300-1,000 mg capsule Take 1,200 mg by mouth 3 (three) times a day. Active multivitamin capsule Take 1 capsule by mouth daily. Active ginseng 100 mg capsule Take 4 tablets by mouth 2 (two) times a day. 400mg twice daily Active acetaminophen (TYLENOL) 500 mg tablet Take 500 mg by mouth every 6 (six) hours as needed for pain. Active ferrous sulfate (HIGH POTENCY IRON) 27 mg iron tablet Take by mouth. Act mili levOCARNitine tartrate 250 mg capsule Take 2 tablets by mouth 4 (four) times a day. Active cholecalciferol , vitamin D3, 50,000 units tablet Take by mouth daily. Active mecobalamin (B12 ACTIVE ORAL) Take by mouth. 5mg daily Active biotin 10,000 mcg capsule Take 1 tablet by mouth daily. Active [id number]-[id number]-dss 160 mg iron-1 mg-60 mcg tablet Take by mouth. Daily Active Family History Medical History Relation Name Comments Cancer Brother Heart attack Brother Heart disease Brother Alzheimer's disease Father Parkinsonism Father Cancer Mother Stroke Mother Relation Name Status Comments Brother Father Mother Social History Tobacco Use Types Packs/Day Years Used Date Smoking Tobacco: Former Cigarettes Q uit: 2001 Smokeless Tobacco: Never PHQ-2 Answer Date Recorded Total Score 6 10/18/2019 Childcare Answer Date Recorded Childcare Unknown 10/26/2018 Employment Answer Date Recorded Employment Unknown 10/26/2018 Purpose - Life Answer Date Recorded Purpose and direction in life Unknown Comments Unknown Sex and Gender Information Value Date Recorded Sex Assigned at Not on file Legal Sex Female 9:41 PM EDT Gender Identity Not on file Sexual Orientation Not on file Last Filed Vital Signs Vital Sign Reading Time Taken Comments Blood Pressure 142/78 10/18/2019 2:09 PM EDT Pulse 80 10/18/2019 2:09 PM EDT Temperature - - Respiratory Rate - - Oxygen Saturation - - Inhaled Oxygen Concentration - - Weight 87.5 kg (193 lb) 10/18/2019 2:09 PM EDT Height 157.5 cm (5' 2 ) 10/18/2019 2:09 PM EDT Body Mass Index 35.3 10/18/2019 2:09 PM EDT Plan of Treatment Health Maintenance Due Date Last Done Comments Depression Screening 1963 Tobacco Screening 1963 Adult BMI Screening 1969 DTaP,Tdap and Td Vaccines (1 - Tdap) 1970 Zoster (Shingles) Vaccine (1 of 2) 2001 Fall Risk Screening 02/26/2016 Influenza Vaccine 01/16/2025 Medical Devices Not on file Insurance MEDICARE [facility]
--- NOTE | 2025-02-07 15:28 | XR_ITS ---
The [address] [address] Patient Name: LIBERTY BRYANT MRN: [id number] date: 1950 Sex: F Assigned Patient Location: [facility] Current Patient Location: [facility] Accession/Order Number: [id number] Exam Date: 02/07/2025 15:30 Report Date: 02/07/2025 19:00 At the request of: BERTHA BLAND MD Procedure: XR abdomen 1V KUB INDICATION: Kidney stone COMPARISON: 02/04/2024 FINDINGS: No radiopaque calcifications overlying the renal shadows or psoas musculature. Nonspecific bowel gas pattern with mild to moderate retained stool. Levocurvature lumbar spine. Multilevel degenerative changes. XR/XR abdomen 1V IMPRESSION: No radiopaque calcifications overlying the renal shadows or psoas muscles. Impression dictated by: Jose Centeno M.D. 02/07/2025 7:00 PM Dictation Location: [place] [address] Electronically authenticated by: [id number] Y Date: 02/07/2025 19:00
--- OUTSIDE RECORDS SUMMARY | 2025-02-07 15:29 | XMS_ITS | CCD ---
Author Organization [facility] Care Team Providers Care Supervisor Contact Lens Name Role Phone Mir Dominick Unavailable MD Estefanía Sutherland Primary Care Provider [phone] DO Adriana Cárdenas Jr Attending Provider ESTEFANÍA SUTHERLAND Primary Care Physician [phone] ESTEFANÍA SUTHERLAND Primary Care Physician Cesar Estrada [...] ., DR DEMARCO Admitting Unavailable ZIEBER, DR NCIOLE Vu Consulting Unavailable SUTHERLAND ., DR ESTEFANÍA [...] ., DR ESTEFANÍA Lima Primary Care Unavailable Y[place]ILLE, DR DOMINICK Cheng Consulting Unavailable JHON ., [...] Consulting Unavailable Bambi Browning Primary Care Physician [phone] DO Adriana Cárdenas Jr Attending Provider GINA Browning Primary Care Provider MD Cesar Estrada Attending Provider GINA Browning Primary Care Provider MD Cesar Estrada Attending Provider GINA Browning Primary Care Provider [phone] LIANE Brw[place] Primary Care Provider MD Cesar Estrada Attending Provider [phone] MD Mile Sanchez Primary Care Provider [phone] HARITHA Bernstein Attending Provider [phone] Mile Sanchez MD Primary Care Provider Bertha BLAND Attending Unavailable Bambi Browning Attending Unavailable Bambi Browning Attending Unavailable NamBambi waddell Attending Unavailable NamBambi Attending Unavailable MICAH LOVELL Attending Unavailable Bertha BLAND Attending Unavailable Nam, Bambi L Admitting Unavailable Nam, Bambi L Attending Unavailable Nam, Bambi L Attending Unavailable Nam, Bambi L Admitting Unavailable Oleksandr MOSLEY, Mile Lima Primary Care Provider Amandeep MG, Rosalinda Attending Provider Cesar Estrada MD Other Provider Cesar Estrada Consulting Unavailable Mile Sanchez Primary Care Unavailable Bernstein, Rosalinda Admitting Unavailable Bernstein, Rosalinda Attending Unavailable Mile Sanchez Primary Care Unavailable Bernstein, Rosalinda Admitting Unavailable Bernstein, Rosalinda Attending Unavailable LOWE, FLORES Attending Unavailable AAMIR JAMES Attending Unavailable MURCEK, KEVIN Rogers Attending Unavailable JAMESAAMIR BORGES Referring Unavailable MURCEK, KEVIN Rogers Referring Unavailable MURCEK, KEVIN Rogers Attending Unavailable MURCEK, KEVIN Rogers Attending Unavailable SAGE JO Attending Unavailable JR. JAY, ADRIANA Short Referring Unavaila ble MURCEK, KEVIN Rogers Attending Unavailable ROBERT FERREIRA Attending Unavailable LORY BUSCH Attending Unavailable ROSALINDA BERNSTEIN Attending Unavailable ROSALINDA BERNSTEIN Referring Unavailable PETITTIKATERYNA Attending Unavailable SAGE JO Attending Unavailable JR. JAY, ADRIANA Short Referring Unavaila ble BRSAGE ZULUAGA Attending Unavailable JAY, JR., ADRIANA Short Referring Unavaila ble KELBLESULEMA Weems Attending Unavailable JAY, JR., ADRIANA Short Referring Unavaila ble LOWEFLORES Attending Unavailable SAGE JO Attending Unavailable JR JAY., ADRIANA Short Referring Unavaila ble BERNSTEINROSALINDA Attending Unavailable PETITTIAKTERYNA Attending Unavailable Bertha BLAND Attending Unavailable Nam, Bambi Cruz Attending Unavailable Nma, Bambi L Admitting Unavailable Nam, Bambi L Attending Unavailable Nam, Bambi L Attending Unavailable Nam, Bambi L Attending Unavailable Nam, Bambi L Attending Unavailable Nam, Bambi L Attending Unavailable Allergies Allergy Classification Reported Allergen(s) Allergy Type Date of Onset Reaction(s) Facility (12 sources) Adhesive agent; Translations: [adhesive] Allergy to substance 02-07-20 [facility] (20 sources) Sulfamethoxazole / Trimethoprim; Translations: [sulfamethoxazole-t rimethoprim] Drug Allergy 07-12-20 23 Eruption of skin (disorder), Rash [facility] (10 sources) Sulfonamides (Antibiotic); Translations: [Sulfa (Sulfonamide Antibiotics)] Allergy to substance 11-25-19 Rash [facility] (8 sources) Acetaminophen; Translations: [acetaminophen] Drug Allergy 03-12-20 Hallucinating [facility] (8 sources) oxyCODONE; Translations: [oxycodone] Drug Allergy 03-12-20 Hallucinating [facility] (7 sources) Acetaminophen / oxyCODONE; Translations: [acetaminophen-oxyc odone] Drug Allergy Hallucinations (finding) [facility] (8 sources) Acetaminophen / HYDROcodone Drug Allergy 11-27-19 GI intolerance [facility] Healthcare Work Phone: (20 sources) Acetaminophen / oxyCODONE Drug Allergy 11-27-19 Hallucinations [facility] (19 sources) Wound Dressing Adhesive Drug Allergy 08-13-19 Rash [facility] (2 sources) No Known Medication Allergies; Translations: [No Known Medication Allergies] Propensity to adverse reactions (disorder) [facility] Repository Medications Current Medications Medication Drug Class(es) Dates Sig (Normalized) Sig (Original) 0.5 ML tirzepatide 5 MG/ML Auto-Injector [Mounjaro] (3 sources) Start: 10-05-2023 inject 2.5 mg by subcutaneous injection every week, then inject 2.5 mg by subcutaneous injection every week Mounjaro 2.5 mg/0.5 mL subcutaneous solution 2.5 mg, SubCutaneous, qWeek, INJECT 2.5MG SUBCUTANEOUSLY EVERY WEEK Start Date: 10/05/23 Status: Ordered amoxicillin 500 mg oral tablet (20 sources) [...] # 6 cap(s), Refills(s) 0, Pharmacy: [facility]/pharmacy #[id number], 158, cm, 07/14/22 11:51:00 EST, Height/Length Dosing, 92, kg, 07/14/22 11:51:00 EST, Weight Dosing Start Date: 07/18/22 Status: Ordered Ascorbic Acid (20 sources) Vitamin C Start: 07-14-2022 Vitamin C Daily, Refills(s) 0 Start Date: 07/14/22 Status: Ordered Start: 05-05-2022 take 3 tablets by mo uth once daily in the morning Ascorbic Acid (Vitamin C) (Vitamin C) 250 mg Tablet Active 750 MG PO Every morning May 05, 2022 1:00am ascorbic acid (V itamin C) 250 MG chewable tablet Active aspirin 81 mg delayed release oral tablet (20 sources) Platelet Aggregation Inhibitor, Nonsteroidal Anti-inflammatory Drug Start: 07-10-2022 End: 08-15-2024 take 1 tablet by mouth in the morning aspirin 81 MG EC tablet Take 1 tablet by mouth in the morning. 07/10/2022 Active Start: 05-05-2022 End: 12-12-2022 take 1 tablet by mouth once daily aspirin 81 MG EC tablet Take 1 tablet by mouth Daily 07/10/2022 Active Aspirin 81 Activ e atorvastatin 20 mg oral tablet (20 sources) HMG-CoA Reductase Inhibitor Start: 05-05-2022 End: 03-30-2025 atorvastatin (Lipitor) 20 MG tablet 07/10/2022 Active Atorvastatin [facility] Active bacillus coagulans [phone] unt / inulin 250 mg oral capsule (20 sources) Start: 11-24-2022 take 1 capsule by mouth once daily at bedtime Bacillus Coagulans-Inulin (Probiotic With Prebiotic) 1 billion-250 cell-mg Capsule Active 1 CAP PO Daily at bedtime November 24, 2022 12:00am Bacillus Coagula ns-Inulin (PROBIOTIC-PREBIOTIC PO) Active Bacillus Coagula ns-Inulin (PROBIOTIC-PREBIOTIC PO) Probiotic Active [...] August 15, 2024 10:59am Biotin Active Calcium (6 sources) Phosphate Binder, Calcium Start: 05-16-2024 calc ium chew calcium chew Start Date: 05/16/24 Status: Ordered Start: 08-13-2023 calcium Active PO August 13, 2023 12:00am Chlorthalidone (6 sources) Thiazide-like Diuretic Chlorthal idone Active cholecalciferol 0.125 mg oral tablet (20 sources) Vitamin D Start: 07-27-2017 Cholecalciferol (Vitamin D3) (Vitamin D3) 5,000 unit Tablet Active 45910 UNIT PO As Directed July 27, 2017 12:00am Start: 07-27-2017 Cholecalcifero l (Vitamin D3) (Vitamin D3) 5,000 unit Tablet Active 56489 UNIT PO every week July 27, 2017 12:00am cholecalciferol (Vitamin D-3) 1.25 MG (06192 UT) capsule Take 50,000 Units by mouth 1 (one) time per week 1 capsule Orally twice a month Active ciprofloxacin 500 mg oral tablet (7 sources) Quinolone Antimicrobial Start: 01-21-2024 End: 01-28-2024 take 1 tablet by mouth every twelve hours ciprofloxacin 500 mg Tab 500 mg = 1 tab(s), Oral, q12hr, X 7 day(s), # 14 tab(s), Refills(s) 0, Pharmacy: [facility]/pharmacy #[id number], 158, cm, 01/21/24 10:49:00 EDT, Height/Length [...] # 2 tab(s), Refills(s) 0, Pharmacy: [facility]/pharmacy #[id number], 158, sukhdev, 07/14/22 11:51:00 EST, Height/Length Dosing, 92... Start Date: 07/14/22 Status: Ordered Co Q 10 (6 sources) Co Q 10 Active coenzyme Q-10 100 MG ER caps ule (20 sources) coenzyme Q-10 10 0 MG ER capsule Active coenzyme Q-10 10 0 MG ER capsule as directed Orally Active CoQ10 (13 sources) Start: 07-14-2022 CoQ10 Oral, Da jess, Refills(s) 0 Start Date: 07/14/22 Status: Ordered Cranberry preparation (20 sources) Non-Standardized Food Allergenic Extract, Non-Standardized Plant Allergenic Extract Start: 02-13-2023 cranberry Refill(s) 0 Start Date: 02/13/23 Status: Ordered Start: 11-24-2022 take 1 tablet by vish th twice daily Cranberry Extract 250 mg Tablet [...] 2022 12:00am Cranberry 500 MG chewable tablet Chew Active docusate sodium 100 mg oral capsule [...] # 30 cap(s), Refills(s) 0, Pharmacy: [facility]/pharmacy #[id number], 158, sukhdev, 12/05/22 11:44:00 EDT, Height/Length Dosing, 92.2, kg, [...] days Active take 1 capsule by mo uth twice daily Fish Oil 1000 MG 1 [...] CHLOROthiazide (Hyzaar) 100-25 MG tablet Take by mouth 08/06/2022 Active Start: 05-05-2022 End: 03-12-2023 take [...] Daily, # 90 tab(s), Refills(s) 1, Pharmacy: [facility], 158, cm, 03/15/24 15:36:00 EDT, Height/Length Dosing, 87.9, kg, 03/15/24 15:36:00 EDT, Weight Dosing Start Date: 04/04/24 Status: Ordered Start: 11-05-2023 take 1 tablet by vish th once daily levothyroxine 125 mcg (0.125 mg) Tab 125 mcg = 1 tab(s), Oral, Daily, # 90 tab(s), Refills(s) 1, Pharmacy: [facility], 158, cm, 10/05/23 11:25:00 EDT, Height/Length Dosing, 92.3, kg, 10/05/23 11:25:00 EDT, Weight Dosing Start Date: 11/05/23 Status: Ordered Start: 08-12-2023 take 1 tablet by vish th once daily levothyroxine 125 mcg (0.125 mg) Tab 125 mcg = 1 tab(s), Oral, Daily, # 90 tab(s), Refills(s) 0, Pharmacy: [facility], 159, cm, 05/13/23 14:24:00 EST, Height/Length Dosing, 95.1, kg, 05/13/23 14:24:00 EST, Weight Dosing Start Date: 08/12/23 Status: Ordered Start: 04-27-2023 take 1 tablet by vish once daily levothyroxine 125 mcg (0.125 mg) Tab 125 mcg = 1 tab(s), Oral, Daily, # 90 tab(s), Refills(s) 0, Pharmacy: [facility], 158, cm, 02/13/23 9:31:00 EDT, Height/Length [...] Daily, # 90 tab(s), Refills(s) 1, Pharmacy: [facility], 158, cm, 09/18/22 10:23:00 EDT, Height/Length Dosing, 96.5, kg, 09/18/22 10:23:00 EDT, Weight Dosing Start Date: 11/11/22 Status: Ordered Start: 07-10-2022 take 1 capsule by mo [facility] once daily levothyroxine 125 [...] Daily, # 90 tab(s), Refills(s) 4, Pharmacy: [facility], 158, cm, 10/05/23 11:25:00 EDT, Height/Length Dosing, 92.3, kg, 10/05/23 11:25:00 EDT, Weight Dosing Start Date: 10/09/23 Status: Ordered Start: 07-15-2023 take 1 tablet by [facility] once daily liothyronine 5 mcg Tab 5 mcg = 1 tab(s), Oral, Daily, # 90 tab(s), Refills(s) 0, Pharmacy: [facility], 159, cm, 05/13/23 14:24:00 EST, Height/Length Dosing, 95.1, kg, 05/13/23 14:24:00 EST, Weight Dosing Start Date: 07/15/23 Status: Ordered Start: 07-10-2022 take 1 ug by mouth once daily liothyronine 5 mcg Tab mcg tab(s), Oral, Daily, Refills(s) 0 Start Date: 07/10/22 Status: Ordered Start: 05-05-2022 liothyronine ( Cytomel) 5 MCG tablet 1 (one) time each day at the same time 07/10/2022 Active losartan potassium 100 mg oral tablet (8 sources) Angiotensin 2 Receptor Michi Start: 07-10-2022 take 1 mg by mouth once daily losartan 100 mg Tab mg tab(s), Oral, Daily, Refills(s) 0 Start Date: 07/10/22 Status: Ordered Losartan Potassi um Active Magnesium (17 sources) Start: 07-27-2017 take 2 tablets by mo [facility] once daily at bedtime [...] 2017 11:00pm take 1 tablet by vish th twice daily Magnesium 400 MG 1 tablet with a meal Orally twice daily for 30 days Active take 1 tablet by vish th twice daily Magnesium 250 MG 1 tablet with a meal Orally twice daily for 30 day(s) Active magnesium gluconate 500 mg o ral tablet (20 sources) Start: 07-14-2022 magnesium gluc rupert (Magonate) 500 MG tablet Take by mouth 07/14/2022 Active Melatonin (20 sources) Start: 07-14-2022 [...] 11:00am Melatonin 5 MG c hewable tablet Active metFORMIN hydrochloride 500 mg oral tablet (20 sources) Biguanide Start: 07-24-2017 Metformin 500 mg tablet Active 1 TAB PO As Directed July 24, 2017 1:00am Start: 07-24-2017 take 1 mg by mouth once daily metformin 500 mg ER Tab mg tab(s), Oral, Daily, Refills(s) 0 Start Date: 07/10/22 Status: Ordered take 3 tablets by mo [facility] once daily metFORMIN (Glucophage) [...] Taking Methyl B-12 Acti ve Methylcobalamin (Methyl B-12 ) 500 MCG chewable tablet (20 sources) Start: 09-18-2022 Methylcobalami n (Methyl B-12) 500 MCG chewable tablet 09/18/2022 Active Start: 09-18-2022 Methylcobalami n (Methyl B-12) 500 MCG chewable tablet See Instructions, 5 mg Chewed, Refills(s) 0 09/18/2022 Active Multiple Vitamin (Multi Emy min) tablet (20 sources) Multiple Vitamin (Multi Vitamin) tablet 1 (one) time each day at the same time Active Multiple Vitamin (Multi Vitamin) tablet 1 (one) time each day at the same time. Active Multivitamin preparation (20 sources) Start: 03-31-2023 take 1 tablet by mouth once daily Multivitamin Active 1 TAB PO Daily March 31, 2023 1:00am Start: 03-31-2023 take 1 tablet by vish once daily Multivitamin Active 1 TAB PO [...] morning July 26, 2017 11:00pm Multivitamin Tablet (2 sources) Start: 11-14-2023 take 1 tablet by mouth once daily Multivitamin Tablet Active 1 TAB PO Daily March 31, 2023 1:00am Multivitamins (6 sources) Multivitamins as directed Orally Active [place] 3-Ghm-Uwz-Fish Oil (Fish Oil) 1,200 (144-216) mg Capsule (7 sources) Start: 03-12-2023 take 1 capsule by mouth three times daily [place] 7-Wsp-Lap-Fish Oil (Fish Oil) 1,200 (144-216) mg Capsule Active 1 CAP PO Three times daily March 11, 2023 11:00pm Start: 03-12-2023 take 1 capsule by mo uth three times daily [place] 1-Seg-Yir-Fish Oil (Fish Oil) 1,200 (144-216) mg Capsule Active 1 CAP PO Three times daily March 12, 2023 12:00am Selma-3 Fatty Acids (Fish Oi l) 1200 MG capsule delayed-release (20 sources) Start: 07-14-2022 Selma-3 Fatty Acids (Fish Oil) 1200 MG capsule delayed-release Take by mouth 07/14/2022 Active Start: 07-14-2022 [place]ma-3 Fatty Acids (Fish Oil) 1200 MG capsule delayed- release Take by mouth. 07/14/2022 Active omeprazole 20 mg delayed release oral capsule (20 sources) Proton Pump Inhibitor Start: 07-24-2017 End: 08-13-2023 omeprazole (PriLOSEC) [address] capsule 09/09/2022 Active ondansetron 8 mg oral tablet [...] Refills(s) 0 Start Date: 10/05/23 Status: Ordered pregabalin 50 mg oral capsule (9 sources) Start: 10-12-2024 take 1 capsule by mouth in the morning pregabalin (Lyrica) 50 MG capsule Indications: Cerebrovascular accident (CVA), unspecified mechanism (HCC) , Spasticity , Lumbosacral radiculopathy , Degeneration of intervertebral disc of lumbar region, unspecified whether pain present Take 1 capsule (50 mg) by mouth in the morning and 1 capsule (50 mg) before bedtime. 60 capsule 1 10/12/2024 Active probiotic (4 sources) probiotic Active probiotic with prebiotic (1 source) Start: 05-16-2024 probiotic with prebiotic probiotic with prebiotic Start Date: 05/16/24 Status: Ordered sulfamethoxazole 800 mg / trimethoprim 160 mg oral tablet (2 sources) Dihydrofolate Reductase Inhibitor Antibacterial, Sulfonamide Antimicrobial Start: 10-08-2022 End: 10-18-2022 Bactrim D.S. 800 mg-160 mg Tab 1 tab(s), Oral, BID for 10 day(s), 20 tab(s), Refill(s) 0, [facility]/pharmacy #[id number], 158, cm, 09/18/22 10:23:00 EDT, Height/Length Dosing, 96.5, kg, 09/18/22 10:23:00 EDT, Weight Dosing Start Date: 10/08/22 Stop Date: 10/18/22 Status: Ordered Tirzepatide (2 sources) Start: 08-15-2024 Tirzepatide (Mounjaro) 5 mg/0.5 mL pen injector Active 5 MG SUBCUT every week August 15, 2024 12:00am Tirzepatide (Mounjaro) 5 MG/0.5ML solution auto-injector (20 sources) inject 5 mg by subcutaneous injection every week Tirzepatide (Mounjaro) 5 MG/0.5ML solution auto-injector Inject 5 mg under the skin 1 (one) time per week Active traMADol hydrochloride 50 mg oral tablet (20 sources) Opioid Agonist Start: 02-13-2023 take 1 [...] Active ubidecarenone 200 mg oral ca psule (11 sources) Start: 05-05-2022 Coenzyme Q10 ( Co [...] 07/14/22 Status: Ordered Zinc Active ZINC CITRATE (11 sources) Start: 05-05-2022 Zinc Citrate 1 6.7 [...] morning May 05, 2022 12:00am Zinc Sulfate (20 sources) Zinc Sulfate (ZI NC 15 PO) Active Zinc Sulfate (ZI NC 15 PO) Zinc [...] 650 MG ER tablet Take by mouth 07/14/2022 Active Start: 07-27-2017 End: 11-24-2022 take 2 tablets by mouth once daily at bedtime Acetaminophen 500 mg Tablet Discontinued 1000 MG PO Daily at bedtime July 27, 2017 12:00am November 24, 2022 9:59am Start: 07-27-2017 End: 11-24-2022 take 1000 mg by mouth once daily at bedtime Acetaminophen Discontinued 1000 MG PO Daily at bedtime July 27, 2017 12:00am November 24, 2022 9:59am 0.4 ml adalimumab 100 mg/ml auto-injector (20 sources) Tumor Necrosis Factor Michi Start: 03-12-2023 End: 08-12-2024 Adalimumab (Humira(Cf) Pen) 40 mg/0.4 mL pen injector kit Discontinued 40 MG SUBCUT EVERY 2 WEEKS February 03, 2024 9:10am August 12, 2024 2:12pm Start: 07-10-2022 adalimumab (Hu darek) 40 MG/0.8ML Prefilled Syringe Kit prefilled syringe 07/10/2022 Active Start: 05-05-2022 End: 12-12-2022 Adalimumab (Humira(Cf) Pen) [...] OTHER WEEK for 90 days May, Active budesonide 0.032 mg/actuat metered dose nasal spray [...] Start: 05-05-2022 End: 08-15-2024 Budesonide 32 mcg/actuation [place],Non-Aerosol Discontinued 2 SPRAY INTRANASAL Daily at bedtime [...] 750 MG chewable tablet Chew 300 mg Active take 1 tablet by vish th every twelve hours Calcium 500 MG 1 tablet with meals Orall y Twice a day for 30 day(s) Active calcium carbonate 1500 mg / cholecalciferol 200 unt oral tablet (11 sources) Vitamin D Start: 05-05-2022 End: 08-13-2023 take 2 tablets by mouth three times daily Calcium Carbonate-Vitamin D3 (Calcium 600 + D(3)) 600 mg-5 mcg (200 unit) Tablet Discontinued 2 TAB PO Three times daily May 05, 2022 1:00am August 13, 2023 2:48pm Carnitine (6 sources) Carnitine Not-Ta tyrese Carnitine Active cephalexin 500 mg oral capsule (15 sources) Cephalosporin Antibacterial Start: 06-09-2024 End: 08-22-2024 take 1 capsule by mouth twice daily cephalexin (Keflex) 500 MG capsule Indications: Basal cell carcinoma (BCC) of glabella Take 1 capsule, by mouth, bid, 10 days 20 capsule 06/09/2024 08/22/2024 Discontinued Cetrizine Hydrochloride (11 sources) Start: 07-27-2017 End: 05-05-2022 take 10 mg by mouth at bedtime Cetrizine Hydrochloride Discontinued 10 MG PO Bedtime July 27, 2017 12:00am May 05, 2022 10:48am Start: 07-27-2017 End: 05-05-2022 take 10 mg by mouth at bedtime Cetrizine Hydrochloride Discontinued 10 MG PO Bedtime July 26, 2017 11:00pm May 05, 2022 9:48am Kan Xsjosh-Cv-Rvdctjqdkmbg-T ea (Apple Cider Vinegar Plus) [phone] yw-ixn-tu-mg Tablet (9 sources) Start: 11-24-2022 End: 03-12-2023 take 1 tablet by mouth once daily in the morning Kan Nhouhl-Sc-Sngrdizgwjth-Tea (Apple Cider Vinegar Plus) [phone] as-xyl-mh-mg Tablet Discontinued 1 TAB PO Every morning November 23, 2022 11:00pm March 12, 2023 7:22am Start: 11-24-2022 End: 03-12-2023 take 1 tablet by mouth once daily in the morning Kan Bpsvrn-Nu-Xzqxjucuixlm-Tea (Apple Ci praveena Vinegar Plus) [phone] xw-cbb-da-mg Tablet Discontinued 1 TAB PO Every morning November 24, 2022 12:00am March 12, 2023 8:22am Start: 11-24-2022 take 1 tablet by vish th once daily in the morning Kan BricenoOcnguw-Nw-Obujauychefd-Tea (Apple Ci praveena Vinegar Plus) [phone] zb-ruo-ff-mg Tablet Active 1 TAB PO Every morning November 24, 2022 12:00am diphenhydrAMINE hydrochloride 25 mg oral tablet (10 sources) Histamine-1 Receptor Antagonist End: 06-12-2024 take 1 tablet by mouth at bedtime diphenhydrAMINE (BENADryl) 25 MG tablet Take 25 mg by mouth at bedtime 06/12/2024 Discontinued Ginseng (11 sources) Start: 07-27-2017 End: 05-05-2022 take 1 [...] 26, 2017 11:00pm May 05, 2022 9:48am Ginsengs-Arp Jelly 800-200 MG (6 sources) take 2 capsules by mouth twice daily Ginsengs-Arp Jelly 800-200 MG two capsules Orally twice a day Not-Taking take 2 capsules by mouth twice d aily Ginsengs-Arp Jelly 800-200 MG two capsules Orally twice a day Active hydroCHLOROthiazide 12.5 mg / lisinopril 10 mg oral tablet (11 sources) Thiazide Diuretic, Angiotensin Converting Enzyme Inhibitor Start: 07-24-2017 End: 05-05-2022 take 1 tablet by mouth once daily Lisinopril-Hydrochlorothiazide 10-12.5 mg tablet Discontinued 1 TAB PO Daily July 24, 2017 1:00am May 05, 2022 10:27am Inulin-Sorbitol (Fiber Supplement (Inulin)) 2 gram Tablet,Chewable (11 sources) Start: 07-27-2017 End: 03-12-2023 Inulin-Sorbitol (Fiber [...] Combination No.4 (Probiotic) 3 billion cell Capsule (11 sources) Start: 07-27-2017 End: 11-24-2022 take 3 [...] (20 sources) Carnitine Analog Start: 07-27-2017 End: 03-31-2025 take 1 tablet by mouth once daily in the morning Levocarnitine (L-Carnitine) 500 mg Tablet Discontinued 2000 MG PO Every morning July 27, 2017 12:00am August 15, 2024 11:00am End: 06-12-2024 take 1 capsule by mouth once daily levOCARNitine L-Tartrate (L-Carnitine) 500 MG capsule Take 500 mg by mouth Daily 06/12/2024 Discontinued Methyl Folate 5-Myhf (11 sources) Start: 07-27-2017 End: 08-15-2024 take 5 [...] G/0.5ML solution pen-injector 08/27/2023 Active Multivitamin Capsule (2 sources) Start: 07-27-2017 End: 03-31-2023 take 1 capsule by mouth once daily in the morning Multivitamin Capsule Discontinued 1 CAP PO Every morning July 27, 2017 12:00am March 31, 2023 12:57pm [place] 6-Rdb-Oqr-Fish Oil (Fish Oil) 1,000 mg (120 mg-180 mg) Capsule (11 sources) Start: 07-27-2017 End: 12-12-2022 take 1 tablet by mouth three times daily [place] 8-Efi-Uad-Fish Oil (Fish Oil) 1,000 mg (120 mg-180 mg) Capsule Discontinued 1 TAB PO Three times daily July 26, 2017 11:00pm December 12, 2022 2:11pm Start: 07-27-2017 End: 12-12-2022 take 1 tablet by mouth three times daily [place] 0-Afp-Due-Fish Oil (Fish Oil) 1,000 mg (120 mg-180 mg) Capsule Discontinued 1 TAB PO Three times daily July 27, 2017 12:00am December 12, 2022 3:11pm Start: 07-27-2017 take 1 tablet by vish th three times daily [place] 2-Yfj-Ohp-Fish Oil (Fish Oil) 1,000 mg (120 mg-180 mg) Capsule Active 1 TAB PO Three times daily July 27, 2017 12:00am Start: 07-27-2017 take 1 tablet by vish th three times daily [place] 7-Etu-Xvo-Fish Oil (Fish Oil) 1,000 mg (120 mg-180 mg) Capsule Active 1 TAB PO Three times daily July 26, 2017 11:00pm phentermine hydrochloride 37.5 mg oral capsule (11 sources) Sympathomimetic Amine Anorectic Start: 07-27-2017 End: [...] OBST] Onset: 3 Episodic Cancer of thyroid (20 sources) Malignant tumor of thyroid gland; Translations: [...] disease without esophagitis] Onset: 3 07-10-2022 Chronic Essential hypertension (20 sources) Hypertensive disorder; Translations: [Essential (primary) hypertension] Onset: 0 07-10-2022 Chronic 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; Translations: [Other sequelae of cerebral infarction] 10-27-2024 Chronic Neoplasms of unspecified nature or uncertain [...] unspecified site] Onset: 3 12-11-2022 Chronic Other aftercare (2 sources) Long-term current use of immunosuppressive drug; Translations: [Long-term current use of immunosuppressive biologic agent] 08-15-2024 Episodic Other and unspecified benign neoplasm (2 sources) Melanocytic nevi of unspecified part of face; Translations: [Benign neoplasm of skin of other and unspecified parts of face] 04-12-2024 Episodic Other and unspecified benign neoplasm (2 sources) Melanocytic nevus of trunk; Translations: [Melanocytic nevi of trunk] 11-29-2024 Episodic Other bone disease and musculoskeletal deformities [...] abnormalities] Episodic Other non-epithelial cancer of skin (6 sources) Basal cell carcinoma of glabella; Translations: [Basal cell carcinoma of skin of other parts of face] 06-09-2024 Episodic Other non-traumatic joint disorders (2 sources) Pain in right knee; Translations: [Pain in joint, lower leg] 10-27-2024 Episodic Other nutritional; endocrine; and metabolic disorders (6 sources) Obese class II; Translations: [Body mass index (BMI) 35.0-35.9, adult] Chronic Other nutritional; endocrine; and metabolic disorders (20 sources) Obese class I; Translations: [Class 1 obesity] Onset: 3 11-26-2022 Chronic Other nutritional; endocrine; and metabolic disorders (2 sources) Body mass index 30+ - obesity 03-15-2024 Chronic Other screening for suspected conditions (not mental disorders or infectious disease) (11 sources) Encounter for screening for osteoporosis; Translations: [Encounter for screening for malignant neoplasm of cervix] Onset: 2 Episodic Other skin disorders (2 sources) Seborrheic keratosis; Translations: [Other seborrheic keratosis] 11-29-2024 Episodic Other skin disorders (2 sources) Male pattern alopecia; 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, unspecified] 11-29-2024 Episodic Paralysis (20 sources) Left hemiparesis; Translations: [Hemiplegia, unspecified affecting [...] [FAM HX MALIG NEOPLASM OTH ORGN/SYS] Onset: Episodic Spondylosis; intervertebral disc disorders; other back problems (20 sources) Other intervertebral disc degeneration, lumbar region; Translations: [Degeneration of lumbar intervertebral disc] Onset: 3 12-19-2023 Chronic Spondylosis; intervertebral disc disorders; other back problems (4 sources) Lumbosacral radiculopathy; Translations: [Radiculopathy, lumbosacral region] 06-07-2024 Episodic Thyroid disorders (20 sources) Hypothyroidism; Translations: [Other specified hypothyroidism] Onset: 2 07-10-2022 Chronic Unclassified (13 sources) Asymptomatic microscopic hematuria 07-14-2022 Unclassified (3 sources) Patient encounter status 10-05-2023 Past or Other Problems Problem Classification Problem Date Documented Date Episodic/Chronic Alcohol-related disorders (20 sources) Alcohol abuse; Translations: [Alcohol abuse, uncomplicated] Onset: 11-26-2022 Resolved: 12-25-2022 12-25-2022 Chronic Calculus of urinary tract (20 sources) Calculus of kidney; Translations: [Kidney stone] Onset: 07-31-2022 Episodic Genitourinary symptoms and ill-defined conditions (20 sources) Urge incontinence; Translations: [Urge incontinence of urine] Onset: 02-18-2024 Resolved: 06-12-2024 Chronic Genitourinary symptoms and ill-defined conditions (20 sources) Incomplete emptying of bladder; Translations: [Asymptomatic microscopic hematuria] Onset: 01-29-2022 Resolved: 06-12-2024 07-14-2022 Episodic Inflammatory diseases of female pelvic organs (20 sources) Abscess of labia; Translations: [Abscess of vulva] Onset: 06-12-2024 Resolved: 06-12-2024 03-15-2024 Episodic Other aftercare (1 source) Other emt intermediate (current) drug therapy; Translations: [OT CHILDREN LIBRARIAN CURRENT DRUG THERAPY] Onset: 01-30-2022 Episodic Other aftercare (1 source) terminologist (current) use of aspirin; Translations: [CHILDREN LIBRARIAN CURRENT USE OF ASPIRIN] Onset: 01-30-2022 Episodic Other connective tissue disease (20 sources) Spasticity; Translations: [Cramp and spasm] Onset: 12-19-2023 12-19-2023 Episodic Other nervous system disorders (20 sources) Paresthesia; Translations: [Paresthesia of skin] Onset: 12-19-2023 12-19-2023 Episodic Other non-traumatic joint disorders (20 sources) Pain in left knee; Translations: [Pain in joint, lower leg] Onset: 11-12-2023 11-12-2023 Episodic Other skin disorders (20 sources) Changes in skin texture; Translations: [Changes in skin texture] Onset: 06-12-2024 Resolved: 06-12-2024 02-09-2024 Episodic Residual codes; unclassified (1 source) Other specified postprocedural states; Translations: [OTH SPECIFIED POSTPROCEDURAL STATES] Onset: 01-30-2022 Episodic Urinary tract infections (20 sources) Urinary tract infectious disease; Translations: [Urinary tract infection, site not specified] Onset: 05-19-2022 07-14-2022 Episodic Results Test Name Value Interpretation Reference Range Facil ity No Panel Informationon 10-27 Radiology Study observation (narrative) [facility] XR Knee - left 1 or 2 Viewso n 10-27-2024 Imaging Result: AP and Lateral of left knee: Surgical position and alignment of prosthetic components without evidence of loosening or wear to femora, tibial or patellar components, The alignment appears to be anatomic. No evidence of accelerated or asymmetric wear to tibial tray or patella button. No evidence of fracture or dislocation. Impression: Unremarkable left total knee arthroplasty [facility] XR Knee - right 1 or 2 Views on 10-27-2024 Imaging Result: AP and Lateral of right knee: Surgical position and alignment of prosthetic components without evidence of loosening or wear to femora, tibial or patellar components, The alignment appears to be anatomic. No evidence of accelerated or asymmetric wear to tibial tray or patella button. No evidence of fracture or dislocation. Impression: Unremarkable right total knee arthroplasty [facility] Hemoglobin a1c with eagon Glucose [Mass/Vol] 114 mg/dL [facility] HbA1c (Bld) [Mass fraction] 5.6 % 4.3 - 5.6 % [facility] Comment on above: Increased risk for d iabetes: 5.7 - 6.4 diabetes: >6.4 glycemic control for adults with diabetes: <7.0 [facility] A1C with Estimated Average G [facility] 09-07-2024 Glucose [Mass/Vol] 114 mg/dL Normal [facility] Comment on above: Result Comment: PERF ORMED BY: [place] [address] PATHOLOGIST BIOLOGY ADJUNCT INSTRUCTOR YARELY LEOS M.D. Performed By: #### A 1C [facility] Serena, ADDONUAPLUS #### [address] HbA1c (Bld) [Mass fraction] 5.6 % Normal 4.3-5.6 [facility] Comment on above: Result Comment: Incr eased risk for diabetes: 5.7 - 6.4 diabetes: >6.4 glycemic control for adults with diabetes: <7.0 Performed By: #### A 1C [facility] Serena, ADDONUAPLUS #### [address] Adalimumab Tulio Ab Serialon 09-07-2024 Adalimumab Drug Level 5.6 ug/mL Normal . [facility] Comment on above: Result Comment: Baldev titation Limit: <0.6 ug/mL Results of 0.6 or higher indicate detection of adalimumab. Comments: - The optimal drug concentration depends upon patient- specific factors including the disease and desired therapeutic endpoint. - Maintenance trough concentrations >=7.5 may correspond to higher remission rates.(1) - Mucosal healing may be more likely in patients with maintenance trough levels >8.14.(2) - In rheumatoid arthritis, trough levels of 5-8 are associated with clinical (EULAR) response.(3) - This assay measures the antibody-unbound (free) fraction of adalimumab when serum anti-adalimumab antibodies are present. Performed By: #### A DALIMUMAB SER #### [facility] , Anti-Adalimumab Ab 44 ng/mL Normal . [facility] Comment on above: Result Comment: Inte rpretation: The above result is a LOW Antibody titer Quantitation Limit: <25 ng/mL. Results of 25 or higher indicate detection of anti- adalimumab antibodies. 25 - 100 ng/mL: LOW titer 101 - 300 ng/mL: INTERMEDIATE titer 301 or greater ng/mL: HIGH titer Comments: - Anti-drug antibody levels should be interpreted in the context of the concomitant free drug trough concentration. - Low anti-drug antibodies may be transient while high titers are likely to be more consequential.(4-6) - Some immunogenicity is reversible. Elimination of intermediate titer (and even some high titer) anti-adalimumab antibodies has been achieved with dose escalation and/or methotrexate or 6-MP.(7) - This anti-adalimumab antibody assay is drug tolerant, and all positive results are verified for anti-drug specificity by a confirmatory test. References: 1. Sharon N, et al. AGA Review on TDM in IBD. Gastroenterol 2017;153:835-857. 2. Umm E, et al. J Crohns Col 2016;10(5):510-515. 3. Piterw MF, et al. Amna Rheum Dis 2015;74:513-518. 4. Bartelds GM, et al. BEATRIZ 2011;305(14):1809-3871. 5. Stelizabeth C, et al. J Clin Gastroenterol 2016; 50:482-489. 6. Yanai H, et al. Clin Gastroenterol Hepatol 2015; 13(3):522-530. 7. Samantha A, et al. Gastroenterol 2019;156(6):S-617. These tests were developed and their performance characteristics determined by [facility]. They have not been cleared or approved by the Food and Drug Administration. However, these electrochemiluminescence immunoassay (ECLIA) measurements of adalimumab and anti-adalimumab antibody (constituting DoseASSURE ADL) have been developed and validated in accordance with CLIA (Clinical Laboratory Improvement Amendments) and the FDA Guidance document, Assay Development and Validation for Immunogenicity Testing of Therapeutic Protein Products (2019). Performed at: [facility] [address] [place] [id number] Business Management Associate: Chirag Anderson MD, Phone: [phone] PERFORMED BY: [place] [address] [place] [address] PATHOLOGIST BIOLOGY ADJUNCT INSTRUCTOR YARELY LEOS M.D. Performed By: #### A DALIMUMAB SER #### [facility] , Alanine aminotransferase [En zymatic activity/volume] in Serum or PlasmaOrdered By: Cesar Estrada on 09-07-2024 ALT [Catalytic activity/Vol] Alanine aminotransferase [Enzymatic activity/volume] in Serum or Plasma 7-52 [facility] Albumin [Mass/volume] in Ser um or Plasma by Bromocresol green (BCG) dye binding methoOrdered By: Cesar Estrada on 09-07-2024 Albumin BCG dye [Mass/Vol] Albumin [Mass/volume] in Serum or Plasma by Bromocresol green (BCG) dye binding metho 3.5-5.7 [facility] Alkaline phosphatase [Enzyma tic activity/volume] in Serum or PlasmaOrdered By: Cesar Estrada on 09-07-2024 ALP [Catalytic activity/Vol] Alkaline phosphatase [Enzymatic activity/volume] in Serum or Plasma 34-104 [facility] Appearance of UrineOrdered B y: Rosalinda Bernstein on 09-07-2024 Appearance (U) Urine appearance [facility] Aspartate aminotransferase [ Enzymatic activity/volume] in Serum or PlasmaOrdered By: Cesar Estrada on 09-07-2024 AST [Catalytic activity/Vol] Aspartate aminotransferase [Enzymatic activity/volume] in Serum or Plasma 13-39 [facility] Bacteria [Presence] in Urine by AutomatedOrdered By: Rosalinda Bernstein on 09-07-2024 Bacteria Auto Ql (U) Bacteria [Presence] in Urine by Automated None Seen [facility] Basophils Auto (Bld) [#/Vol] Ordered By: Cesar Estrada on 09-07-2024 Basophils (Bld) [#/Vol] Automated basophil count 0.0-0.2 [facility] Basophils/100 WBC Auto (Bld) Ordered By: Cesar Estrada on 09-07-2024 Basophils/100 WBC (Bld) Automated basophil % . [facility] Bilirubin Test strip Ql (U)O rdered By: Rosalinda Bernstein on 09-07-2024 Bilirubin Ql (U) Bilirubin.total [Presence] in Urine by Test strip Negative [facility] Bilirubin.total [Mass/volume ] in Serum or PlasmaOrdered By: Cesar Estrada on 09-07-2024 Bilirubin [Mass/Vol] Bilirubin.total [Mass/volume] in Serum or Plasma 0.3-1.0 [facility] C reactive protein [Mass/vol ume] in Serum or PlasmaOrdered By: Cesar Estrada on 09-07-2024 CRP [Mass/Vol] C reactive protein [Mass/volume] in Serum or Plasma 0.0-0.5 [facility] C-Reactive Proteinon 025 CRP [Mass/Vol] mg/L Normal 0.0-0.5 [facility] Comment on above: Result Comment: PERF ORMED BY: [place] [address] PATHOLOGIST BIOLOGY ADJUNCT INSTRUCTOR YARELY LEOS M.D. Performed By: #### C MP, CRP, CBC #### [address] Calcium [Mass/volume] in Ser um or PlasmaOrdered By: Cesar Estrada on 09-07-2024 Calcium [Mass/Vol] Calcium [Mass/volume ] in Serum or Plasma 8.6-10.3 [facility] Carbon dioxide, total [Moles /volume] in Serum or PlasmaOrdered By: Cesar Estrada on 09-07-2024 CO2 [Moles/Vol] Carbon dioxide, tota l [Moles/volume] in Serum or Plasma 21.0-31.0 [facility] Chloride [Moles/volume] in S soni or PlasmaOrdered By: Cesar Estrada on 09-07-2024 Chloride [Moles/Vol] Chloride [Moles/volume] in Serum or Plasma Low 98-107 [facility] Color Auto (U)Ordered By: Vasyl Bernstein on 09-07-2024 Color (U) Color of Urine by Auto Yellow Fi [facility] Complete Blood Count Auto Di ffon 09-07-2024 Basophils (Bld) [#/Vol] 0.1 10*3/uL Normal 0.0-0.2 [facility] Comment on above: Result Comment: PERF ORMED BY: [facility] [address] [place] [address] PATHOLOGIST BIOLOGY ADJUNCT INSTRUCTOR YARELY LEOS M.D. Performed By: #### C MP, CRP, CBC #### [address] Basophils/100 WBC (Bld) 0.8 % Normal . [facility] Comment on above: Performed By: #### C MP, CRP, CBC #### [address] Eosinophils (Bld) [#/Vol] 0.9 10*3/uL High 0.0-0.45 [facility] Comment on above: Performed By: #### C MP, CRP, CBC #### [address] Eosinophils/100 WBC (Bld) 10.4 % Normal . [facility] Comment on above: Performed By: #### C MP, CRP, CBC #### [address] Erythrocyte distribution width (RBC) [Ratio] 14.1 % Normal 11.9-15.3 [facility] Comment on above: Performed By: #### C MP, CRP, CBC #### [address] Hematocrit (Bld) [Volume fraction] 36.7 % Normal 34.0-46.4 [facility] Comment on above: Performed By: #### C MP, CRP, CBC #### [address] Hemoglobin (Bld) [Mass/Vol] 12.7 g/dL Normal 11.8-15.4 [facility] Comment on above: Performed By: #### C MP, CRP, CBC #### [address] Lymphocytes (Bld) [#/Vol] 3.1 10*3/uL Normal 1.00-4.8 [facility] Comment on above: Performed By: #### C MP, CRP, CBC #### [address] [address] [place] Lymphocytes/100 WBC (Bld) 35.8 % Normal . [facility] Comment on above: Performed By: #### C MP, CRP, CBC #### [address] MCH (RBC) [Entitic mass] 30.0 pg Normal 24.7-34.3 [facility] Comment on above: Performed By: #### C MP, CRP, CBC #### [address] MCV (RBC) [Entitic vol] 86.6 fL Normal 80-100 [facility] Comment on above: Performed By: #### C MP, CRP, CBC #### [address] Mean Corpuscular HGB Conc 34.6 g/dL Normal 32.0-35.0 [facility] Comment on above: Performed By: #### C MP, CRP, CBC #### [address] Monocytes (Bld) [#/Vol] 0.8 10*3/uL Normal 0.0-0.8 [facility] Comment on above: Performed By: #### C MP, CRP, CBC #### [address] Monocytes/100 WBC (Bld) 9.4 % Normal . [facility] Comment on above: Performed By: #### C MP, CRP, CBC #### [address] Neutrophils (Bld) [#/Vol] 3.8 10*3/uL Normal 1.8-7.7 [facility] Comment on above: Performed By: #### C MP, CRP, CBC #### [address] Neutrophils/100 WBC (Bld) 43.6 % Normal . [facility] Comment on above: Performed By: #### C MP, CRP, CBC #### [place] [address] [place] NRBC% 0.0 /100{WBC} Normal 0-0.5 [facility] Comment on above: Performed By: #### C MP, CRP, CBC #### [address] Platelet mean volume (Bld) [Entitic vol] 6.7 fL Normal 6.3-10.7 [facility] Comment on above: Performed By: #### C MP, CRP, CBC #### [address] Platelets (Bld) [#/Vol] 348 10*3/uL Normal 150-450 [facility] Comment on above: Performed By: #### C MP, CRP, CBC #### [address] RBC (Bld) [#/Vol] 4.23 10*6/uL Normal 3.60-5.00 [facility] Comment on above: Performed By: #### C MP, CRP, CBC #### [address] WBC (Bld) [#/Vol] 8.7 10*3/uL Normal 3.8-11.6 [facility] Comment on above: Performed By: #### C MP, CRP, CBC #### [address] Comprehensive Metabolic Pane cata 09-07-2024 Albumin [Mass/Vol] 3.9 g/dL Normal 3.5-5.7 [facility] Comment on above: Performed By: #### C MP, CRP, CBC #### [address] Albumin/Globulin [Mass ratio] 1.1 {ratio} Normal [facility] Comment on above: Performed By: #### C MP, CRP, CBC #### [address] ALP [Catalytic activity/Vol] 68 U/L Normal 34-104 [facility] Comment on above: Performed By: #### C MP, CRP, CBC #### [facility] [address] ALT [Catalytic activity/Vol] 21 U/L Normal 7-52 [facility] Comment on above: Performed By: #### C MP, CRP, CBC #### [facility] [address] Anion gap [Moles/Vol] 12.5 mmol/L Normal 6.0-15.0 [facility] Comment on above: Performed By: #### C MP, CRP, CBC #### [address] AST [Catalytic activity/Vol] 17 U/L Normal 13-39 [facility] Comment on above: Performed By: #### C MP, CRP, CBC #### [address] Bilirubin [Mass/Vol] 0.5 mg/dL Normal 0.3-1.0 [facility] Comment on above: Performed By: #### C MP, CRP, CBC #### [address] Calcium [Mass/Vol] 9.3 mg/dL Normal 8.6-10.3 [facility] Comment on above: Performed By: #### C MP, CRP, CBC #### [address] Chloride [Moles/Vol] 96 mmol/L Low 98-107 [facility] Comment on above: Performed By: #### C MP, CRP, CBC #### [place] [address] [place] CO2 [Moles/Vol] 29.9 mmol/L Normal 21.0-31.0 [facility] Comment on above: Performed By: #### C MP, CRP, CBC #### [address] Creatinine [Mass/Vol] 0.69 mg/dL Normal 0.60-1.20 [facility] Comment on above: Performed By: #### C MP, CRP, CBC #### [place] [address] [place] GFR/1.73 sq M.predicted MDRD (S/P/Bld) [Vol rate/Area] mL/min/{1.73_m2} Normal [facility] Comment on above: Performed By: #### C MP, CRP, CBC #### [address] Globulin (S) [Mass/Vol] 3.5 g/dL Normal [facility] Comment on above: Performed By: #### C MP, CRP, CBC #### [address] Glucose [Mass/Vol] 82 mg/dL Normal 70-100 [facility] Comment on above: Result Comment: [place] Glucose Reference Range is dependent on time and content of last meal. Glucose of more than 200 mg/dL in a nonstressed, ambulatory subject supports the diagnosis of Diabetes Mellitus. ADA recommended reference range Performed By: #### C MP, CRP, CBC #### [address] Potassium [Moles/Vol] 4.4 mmol/L Normal 3.5-5.1 [facility] Comment on above: Performed By: #### C MP, CRP, CBC #### [address] Protein [Mass/Vol] 7.4 g/dL Normal 6.4-8.9 [facility] Comment on above: Performed By: #### C MP, CRP, CBC #### [place] [address] [place] Sodium [Moles/Vol] 134 mmol/L Low 136-145 [facility] Comment on above: Performed By: #### C MP, CRP, CBC #### [address] Urea nitrogen [Mass/Vol] 11 mg/dL Normal 7-25 [facility] Comment on above: Performed By: #### C MP, CRP, CBC #### [place] [address] [place] Creatinine [Mass/volume] in Serum or PlasmaOrdered By: Cesar Estrada on 09-07-2024 Creatinine [Mass/Vol] Creatinine [Mass/volume] in Serum or Plasma 0.60-1.20 [facility] Dipstick and Microscopicon 0 09-07-2024 Appearance (U) Clear Normal Clear [facility] Comment on above: Order Comment: Name Collection Type:: Clean-Voided Midstream Performed By: #### A 1C WTH eA, ADDONUAPLUS #### [facility] [address] [place] [address] [place] Bacteria,Urine Rare Normal None Seen [facility] Comment on above: Order Comment: Name Collection Type:: Clean-Voided Midstream Performed By: #### A 1C WTH eA, ADDONUAPLUS #### [place] [address] [place] Bilirubin,Urine Negative Normal Negative [facility] Comment on above: Order Comment: Name Collection Type:: Clean-Voided Midstream Performed By: #### A 1C WTH eA, ADDONUAPLUS #### [facility] [address] [place] [address] [place] Color (U) Light-Yellow Normal Yellow [facility] Comment on above: Order Comment: Name Collection Type:: Clean-Voided Midstream Performed By: #### A 1C WTH eA, ADDONUAPLUS #### [facility] [address] [place] [id number] [place] Glucose Ql (U) Normal Normal Normal [facility] Comment on above: Order Comment: Name Collection Type:: Clean-Voided Midstream Performed By: #### A 1C WTH eA, ADDONUAPLUS #### [facility] [address] [place] [id number] [place] Hyaline Casts,Urine None Normal 0-8 [facility] Comment on above: Order Comment: Name Collection Type:: Clean-Voided Midstream Performed By: #### A 1C WTH eA, ADDONUAPLUS #### [facility] [address] [place] [id number] [place] Ketones Ql (U) Negative Normal Negative [facility] Comment on above: Order Comment: Name Collection Type:: Clean-Voided Midstream Performed By: #### A 1C WTH eA, ADDONUAPLUS #### [address] Leukocyte esterase Test strip Ql (U) 2+ High Negative [facility] Comment on above: Order Comment: Name Collection Type:: Clean-Voided Midstream Performed By: #### A 1C WTH eA, ADDONUAPLUS #### [address] Mucus,Urine Rare Normal [facility] Comment on above: Order Comment: Name Collection Type:: Clean-Voided Midstream Result Comment: PERF ORMED BY: [place] [address] PATHOLOGIST BIOLOGY ADJUNCT INSTRUCTOR YARELY LEOS M.D. Performed By: #### A 1C WTH eA, ADDONUAPLUS #### [address] Nitrite,Urine Negative Normal Negative [facility] Comment on above: Order Comment: Name Collection Type:: Clean-Voided Midstream Performed By: #### A 1C WTH eA, ADDONUAPLUS #### [place] [address] [place] Occult Blood,Urine Negative Normal Negative [facility] Comment on above: Order Comment: Name Collection Type:: Clean-Voided Midstream Performed By: #### A 1C WTH eA, ADDONUAPLUS #### [address] pH (U) 7.5 [pH] Normal 5.0-9.0 [facility] Comment on above: Order Comment: Name Collection Type:: Clean-Voided Midstream Performed By: #### A 1C WTH eA, ADDONUAPLUS #### [address] Protein,Urine Negative Normal Negative [facility] Comment on above: Order Comment: Name Collection Type:: Clean-Voided Midstream Performed By: #### A 1C WTH eA, ADDONUAPLUS #### [address] RBC,Urine 1-2 Normal 0-4 [facility] Comment on above: Order Comment: Name Collection Type:: Clean-Voided Midstream Performed By: #### A 1C WTH eA, ADDONUAPLUS #### [address] Specificy [place],Urine 1.009 Normal 1.001-1.030 [facility] Comment on above: Order Comment: Name Collection Type:: Clean-Voided Midstream Performed By: #### A 1C WTH eA, ADDONUAPLUS #### [address] Squamous Epithelial Cell,Urine 1-2 Normal 0-2 [facility] Comment on above: Order Comment: Name Collection Type:: Clean-Voided Midstream Performed By: #### A 1C WTH eA, ADDONUAPLUS #### [address] Urobilinogen,Urine Normal Normal Normal [facility] Comment on above: Order Comment: Name Collection Type:: Clean-Voided Midstream Performed By: #### A 1C WTH eA, ADDONUAPLUS #### [address] WBC,Urine 3-4 Normal 0-4 [facility] Comment on above: Order Comment: Name Collection Type:: Clean-Voided Midstream Performed By: #### A 1C WTH eA, ADDONUAPLUS #### [address] ECG 12 lead ECGon 09-07-2024 ECG 12 lead ECG [facility] [place] [address] [place] [address] Electrocardiograph Report Signed Patient: Gia Ruiz MR#: [id number] : 1950 Acct:[id number] Age/Sex: 74 / F ADM Date: 09/07/24 Loc: Room: Type: [facility] Attending Dr: Rosalinda Bernstein PA-C Ordering Provider: Rosalinda Bernstein PA-C Date of Service: 09/07/24 ECG/ECG [...] No significant change was found Confirmed by CHASITY MOSLEY FAC, JACKIE ([id number]) on 09/07/2024 4:51:09 PM Referred By: Electronically Signed By: JACKIE GASPAR MD FAC Transcribed By: MUS Signed By Jackie Gaspar MD, FACC 09/07/24 7231 Normal [facility] Eosinophils Auto (Bld) [#/Vo l]Ordered By: Cesar Estrada on 09-07-2024 Eosinophils (Bld) [#/Vol] Automated eosinophil count High 0.0-0.45 [facility] Eosinophils/100 WBC Auto (Bl d)Ordered By: Cesar Estrada on 09-07-2024 Eosinophils/100 WBC (Bld) Automated eosinophil % . [facility] Epithelial cells.squamous [# /area] in Urine sediment by Automated countOrdered By: Rosalinda Bernstein on 09-07-2024 Epithelial cells.squamous Auto (Urine sed) [#/Area] Epithelial cells.squamous [#/area] in Urine sediment by Automated count 0-2 [facility] Erythrocyte distribution wid th Auto (RBC) [Ratio]Ordered By: Cesar Estrada on 09-07-2024 Erythrocyte distribution width (RBC) [Ratio] Erythrocyte distribution width [Ratio] by Automated count 11.9-15.3 [facility] Erythrocytes [#/area] in Uri ne sediment by Automated countOrdered By: Rosalinda Bernstein on 09-07-2024 RBC Auto (Urine sed) [#/Area] Erythrocytes [#/area] in Urine sediment by Automated count 0-4 [facility] Globulin Calc (S) [Mass/Vol] Ordered By: Cesar Estrada on 09-07-2024 Globulin (S) [Mass/Vol] Serum globulin measurement by calculation (mass/volume) [facility] Glucose [Mass/volume] in Ser um or PlasmaOrdered By: Cesar Estrada on 09-07-2024 Glucose [Mass/Vol] Glucose [Mass/volume ] in Serum or Plasma 70-100 [facility] Comment on above: ADA recommended refe rence rangeRandom Glucose Reference Range is dependent on time and content of last meal. Glucose of more than 200 mg/dL in a nonstressed, ambulatory subject supports the diagnosis of Diabetes Mellitus. Glucose [Mass/volume] in Uri ne by Test stripOrdered By: Rosalinda Bernstein on 09-07-2024 Glucose Test strip (U) [Mass/Vol] Glucose [Mass/volume] in Urine by Test strip Normal [facility] Hematocrit Auto (Bld) [Volum e fraction]Ordered By: Cesar Estrada on 09-07-2024 Hematocrit (Bld) [Volume fraction] Hematocrit [Volume Fraction] of Blood by Automated count 34.0-46.4 [facility] Hemoglobin Test strip Ql (U) Ordered By: Rosalinda Bernstein on 09-07-2024 Hemoglobin Ql (U) Hemoglobin [Presence ] in Urine by Test strip Negative [facility] Hemoglobin [Mass/volume] in BloodOrdered By: Cesar Estrada on 09-07-2024 Hemoglobin (Bld) [Mass/Vol] Hemoglobin [Mass/volume] in Blood 11.8-15.4 [facility] Hyaline casts [#/area] in Ur ine sediment by Automated countOrdered By: Rosalinda Bernstein on 09-07-2024 Hyaline casts Auto (Urine sed) [#/Area] Hyaline casts [#/area] in Urine sediment by Automated count 0-8 [facility] Ketones Test strip Ql (U)Ord ered By: Rosalinda Bernstein on 09-07-2024 Ketones Ql (U) Ketones [Presence] i n Urine by Test strip Negative [facility] Leukocyte esterase [Presence ] in Urine by Test stripOrdered By: Rosalinda Bernstein on 09-07-2024 Leukocyte esterase Test strip Ql (U) Leukocyte esterase [Presence] in Urine by Test strip High Negative [facility] Leukocytes [#/area] in Urine sediment by Automated countOrdered By: Rosalinda Bernstein on 09-07-2024 WBC Auto (Urine sed) [#/Area] Leukocytes [#/area] in Urine sediment by Automated count 0-4 [facility] Leukocytes [#/volume] correc lisa for nucleated erythrocytes in Blood by Automated counOrdered By: Cesar Estrada on 09-07-2024 WBC corrected for nucl RBC Auto (Bld) [#/Vol] Leukocytes [#/volume] corrected for nucleated erythrocytes in Blood by Automated coun 3.8-11.6 [facility] Lymphocytes Auto (Bld) [#/Vo l]Ordered By: Cesar Estrada on 09-07-2024 Lymphocytes (Bld) [#/Vol] Lymphocytes [#/volume] in Blood by Automated count 1.00-4.8 [facility] Lymphocytes/100 WBC Auto (Bl d)Ordered By: Cesar Estrada on 09-07-2024 Lymphocytes/100 WBC (Bld) Lymphocytes/100 leukocytes in Blood by Automated count . [facility] MCH Auto (RBC) [Entitic mass ]Ordered By: Cesar Estrada on 09-07-2024 MCH (RBC) [Entitic mass] MCH [Entitic mass] by Automated count 24.7-34.3 [facility] MCHC Auto (RBC) [Mass/Vol]Or dered By: Cesar Estrada on 09-07-2024 MCHC (RBC) [Mass/Vol] MCHC [Mass/volume] by Automated count 32.0-35.0 [facility] MCV Auto (RBC) [Entitic vol] Ordered By: Cesar Estrada on 09-07-2024 MCV (RBC) [Entitic vol] MCV [Entitic volume] by Automated count 80-100 [facility] Monocytes Auto (Bld) [#/Vol] Ordered By: Cesar Estrada on 09-07-2024 Monocytes (Bld) [#/Vol] Automated blood monocyte count 0.0-0.8 [facility] Monocytes/100 WBC Auto (Bld) Ordered By: Cesar Estrada on 09-07-2024 Monocytes/100 WBC (Bld) Automated monocyte % . [facility] Mucus [Presence] in Urine by AutomatedOrdered By: Rosalinda Bernstein on 09-07-2024 Mucus Auto Ql (U) Mucus [Presence] in Urine by Automated [facility] Neutrophils Auto (Bld) [#/Vo l]Ordered By: Cesar Estrada on 09-07-2024 Neutrophils (Bld) [#/Vol] Neutrophils [#/volume] in Blood by Automated count 1.8-7.7 [facility] Neutrophils/100 WBC Auto (Bl d)Ordered By: Cesar Estrada on 09-07-2024 Neutrophils/100 WBC (Bld) Automated neutrophil % . [facility] Nitrite Test strip Ql (U)Ord ered By: Rosalinda Bernstein on 09-07-2024 Nitrite Ql (U) Nitrite [Presence] i n Urine by Test strip Negative [facility] No Panel InformationOrdered By: Cesar Estrada on 09-07-2024 Estimated GFR (CKD-EPI) > 60.0 mL/Min [facility] Creatinine Clearance (Chem N/A [facility] Nucleated erythrocytes [Pres ence] in Blood by Automated countOrdered By: Cesar Estrada on 09-07-2024 Nucleated RBC Auto Ql (Bld) Nucleated erythrocytes [Presence] in Blood by Automated count 0-0.5 [facility] Platelet mean volume Auto (B ld) [Entitic vol]Ordered By: Cesar Estrada on 09-07-2024 Platelet mean volume (Bld) [Entitic vol] Platelet mean volume [Entitic volume] in Blood by Automated count 6.3-10.7 [facility] Platelets Auto (Bld) [#/Vol] Ordered By: Cesar Estrada on 09-07-2024 Platelets (Bld) [#/Vol] Platelets [#/volume] in Blood by Automated count 150-450 [facility] Potassium [Moles/volume] in Serum or PlasmaOrdered By: Cesar Estrada on 09-07-2024 Potassium [Moles/Vol] Potassium [Moles/volume] in Serum or Plasma 3.5-5.1 [facility] Protein Test strip (U) [Mass /Vol]Ordered By: Rosalinda Bernstein on 09-07-2024 Protein (U) [Mass/Vol] Protein [Mass/volume] in Urine by Test strip Negative [facility] Protein [Mass/volume] in Ser um or PlasmaOrdered By: Cesar Estrada on 09-07-2024 Protein [Mass/Vol] Protein [Mass/volume ] in Serum or Plasma 6.4-8.9 [facility] RBC Auto (Bld) [#/Vol]Ordere d By: Cesar Estrada on 09-07-2024 RBC (Bld) [#/Vol] Erythrocytes [#/volume] in Blood by Automated count 3.60-5.00 [facility] Serum or plasma albumin/glob ulin mass ratioOrdered By: Cesar Estrada on 09-07-2024 Albumin/Globulin [Mass ratio] Serum or plasma albumin/globulin mass ratio [facility] Serum or plasma anion gap de terminationOrdered By: Cesar Estrada on 09-07-2024 Anion gap [Moles/Vol] Serum or plasma an ion gap determination 6.0-15.0 [facility] Sodium [Moles/volume] in Ser um or PlasmaOrdered By: Cesar Estrada on 09-07-2024 Sodium [Moles/Vol] Sodium [Moles/volume ] in Serum or Plasma Low 136-145 [facility] Specific gravity Test strip (U) [Rel density]Ordered By: Rosalinda Bernstein on 09-07-2024 Specific gravity (U) [Rel density] Specific gravity of Urine by Test strip 1.001-1.030 [facility] Urea nitrogen [Mass/volume] in Serum or PlasmaOrdered By: Cesar Estrada on 09-07-2024 Urea nitrogen [Mass/Vol] Urea nitrogen [Mass/volume] in Serum or Plasma 7-25 [facility] Urobilinogen Test strip (U) [Mass/Vol]Ordered By: Rosalinda Bernstein on 09-07-2024 Urobilinogen (U) [Mass/Vol] Urobilinogen [Mass/volume] in Urine by Test strip Normal [facility] WBC Auto (Bld) [#/Vol]Ordere d By: Cesar Estrada on 09-07-2024 WBC (Bld) [#/Vol] Leukocytes [#/volume ] in Blood by Automated count 3.8-11.6 [facility] pH Test strip (U)Ordered By: Rosalinda Bernstein on 09-07-2024 pH (U) pH of Urine by Test strip 5.0-9.0 [facility] Ambulatory Visit Summaryon 0 08-29-2024 Ambulatory Visit Summary Ambulatory Visit Summary GIA RUIZ :1950 Visit Date:08/29/2024 Ambulatory Visit Instructions Your Diagnosis Crohn's disease prison (current) use of immunosuppressive biologic Primary generalized (osteo)arthritis Type 2 diabetes mellitus with hyperlipidemia BMI 34.0-34.9,adult Non-smoker Hyperlipidemia, unspecified Your Care Team Attending Physician - Bambi [...] gluconate 500 mg oral tablet) melatonin metformin (MetFORMIN (Eqv-Glucophage XR) 500 mg oral tablet, extended release) methylcobalamin (Methyl B-12) multivitamin with iron (Iron 100 Plus) omega-3 polyunsaturated fatty acids (Fish Oil) omeprazole (omeprazole 20 mg Cap-DR) ondansetron (ondansetron 8 mg Tab) tirzepatide (Mounjaro 2.5 mg/0.5 mL subcutaneous solution) ubiquinone (CoQ10) zinc sulfate (Zinc) Procedures Performed Appendectomy, Arthroscopy of knee, Arthroscopy, knee, surgical; with meniscus repair (medial OR lateral), Cervical polypectomy, Colonoscopy, Cyst, Cystoscopy, Hysterectomy, Surgery, Thyroidectomy. Discharge Vitals Heart Rate (Peripheral) 74 Respiratory Rate 18 Blood Pressure 136/80 Height 158.0 cm Height 62 in Weight 86.70 kg Weight 191.141 lb BMI 34.73 What to do next Scheduled Follow-Up Appointments Thursday 11:00 AM EDT With: EDWINA MOSLEY, Bertha Vu Where: [facility] [address] [place] [address]- Thursday 1:00 PM EST With: Where: [facility] [address] [address]- Medications What How Much When Instructions Unchanged [...] 1 Tablets By Mouth Every day Unchanged cholecalciferol (Vitamin D3) 50 Microgram By [...] Once a day (at bedtime) Unchanged metformin (MetFORMIN (Eqv-Glucophage XR) 500 mg oral tablet, extended release) See instructions TAKE 1 TABLET 3 TIMES A DAY Unchanged methylcobalamin (Methyl B-12) See instructions 5 mg Chewed Unchanged Misc Prescription (BACLOFEN 10 MG TABLET) 0 Unchanged multivitamin with iron (Iron 100 Plus) 1 Tablets By Mouth Every day Unchanged Non-Formulary Medication (calcium chew) Unchanged Non-Formulary Medication (probiotic with prebiotic) Unchanged omega-3 polyunsaturated fatty acids (Fish Oil) [...] that you are currently receiving treatment for. 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 Normal [facility] Family Medicine Office/Clini c Noteon 08-29-2024 Family Medicine Office/Clinic Note Family Medicine Office/Clinic Note HPI Staff Gia is a 74 year old female presenting Patient is here for follow up on hypertension. How often are you checking your blood pressure? once a month What are your average readings? _ 107/75 last week Do you have any of the following symptoms? Chest Pain? no Palpitations? no GANNON/SOB? no Headache? no Peripheral Edema? no Light Headed? no Patient is here for follow up on Thyroid Disease. Do you have any of the following symptoms? Change in energy level? no Weight change? no Heat/cold intolerance? no Hair/skin/nail changes? no Change in bowels? no Last TSH: TSH: 0.82 mcIU/mL (05/26/24 09:13:00) Patient is here for follow up on Diabetes. How often are you checking your blood sugars? no What are your average readings? _ Paresthesias, Ulcerations or sores? no Lisinopril, aspirin, statin therapy? Yes Foot Exam: Eye Exam: Last A1c: Hgb A1C %: 5.4 % (05/26/24 09:13:00) Questions/Concerns: Pt denies checking her blood sugars no refills needed DECLINES CCM History of Present Illness pt presents today for follow up. Review of Systems PHQ Score Initial Depression Screen Score: 0 SCORE Physical Exam Vitals & Measurements HR: 74(Peripheral) RR: 18 BP: 136/80 HT: 158.0 cm HT: 62 in WT: 191.141 lb WT: 86.70 kg BMI: 34.73 General: alert, no acute distress ENMT: oral mucosa moist, no pharyngeal erythema or exudate Cardiovascular: regular rate and rhythm, normal peripheral perfusion Respiratory: Lungs CTA, respirations non labored Extremities: no deformity, no trauma Neurological: oriented x 4, LOC appropriate for age, CN II-XII intact, motor strength equal & normal bilaterally, speech normal Assessment/Plan 1. Type 2 diabetes mellitus with hyperlipidemia (E11.69: Type 2 diabetes mellitus with other specified complication) HGBA1C was 5.4 May 26. will recheck HGBA1C in October. does not need refills at this time. Declined CCM. 2. Crohn's disease (K50.90: Crohn's disease, unspecified, without complications) Follow with GI. treatment with Humira 3. 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 Primary generalized (osteo)arthritis (M15.0: Primary generalized (osteo)arthritis) continue meds 6. BMI 34.0-34.9,adult (Z68.34: Body mass index [BMI] 34.0-34.9, adult) BMI educaiton given 7. Non-smoker (Z78.9: Other specified health status) continue not smoking Hyperlipidemia, unspecified (E78.5: Hyperlipidemia, unspecified) cholesterol under control will continue statin Other emt intermediate (current) drug therapy (Z79.899: Other long-term (current) drug therapy) taking humira for crohn's Orders: metformin, 500 mg = 1 tab(s), Oral, TID, # 270 tab(s), Refills(s) 0, Pharmacy: [facility], 158, cm, 02/18/24 13:05:00 EDT, Height/Length Dosing, 91.7, kg, 02/18/24 13:05:00 EDT, Weight Dosing Follow-up No qualifying data available Problem List/Past Medical History Ongoing BMI 35.0-35.9,adult Crohn's disease GERD (gastroesophageal reflux disease) HTN (hypertension) Hyperlipidemia Hypothyroidism Immunodeficiency due to drugs Incomplete bladder emptying Kidney stone Labial abscess prison (current) use of immunosuppressive biologic Obesity (BMI 35.0-39.9 without comorbidity) JOSE RAMON (obstructive sleep apnea) Primary generalized (osteo)arthritis Skin texture changes Type 2 diabetes mellitus with hyperlipidemia Urge incontinence Urinary frequency Historical No qualifying data Procedure/Surgical History Appendectomy, Arthroscopy of knee, Arthroscopy, knee, surgical; with meniscus repair (medial OR lateral), Cervical polypectomy, Colonoscopy, Cyst, Cystoscopy, Hysterectomy, Surgery, Thyroidectomy. Medications acetaminophen 650 mg oral tablet, [...] hydrochlorothiazide-lo sartan 25 mg-100 mg Tab, See Instructions, 3 refills Iron 100 Plus, 1 tab(s), Oral, Daily levothyroxine 125 mcg (0.125 mg) Tab, 125 mcg= 1 tab(s), Oral, Daily, 1 refills liothyronine 5 mcg Tab, 5 mcg= 1 tab(s), Oral, Daily, 4 refills magnesium gluconate 500 mg oral tablet, Oral, BID melatonin, Once a day (at bedtime) MetFORMIN (Eqv-Glucophage XR) 500 mg oral tablet, extended release, See Instructions, 1 refills Methyl B-12, See Instructions Mounjaro 2.5 mg/0.5 mL subcutaneous solution, 2.5 mg, SubCutaneous, qWeek omeprazole 20 mg Cap-DR, See Instructions ondansetron 8 mg Tab, 8 mg= 1 tab(s), (more content not included)... Normal [facility] Comment on above: Result Comment: Elec tronically Signed By: Bambi Reynolds\.br\Date and Time Signed: 08/29/24 11:17 EDT MM TOMOSYNTHESIS SCREENING B Ion 08-29-[address] [address] Mammography Report Signed Patient: GIA RUIZ MR#: [id number] : 1950 Acct:[id number] Age/Sex: 74 / F ADM Date: 08/29/24 Loc: MAMMO Attending Dr: Robert Ferreira D.O. Ordering Physician: Robert Ferreria D.O. Results: Date of Service: 08/29/24 Follow Up: Procedure(s): MM tomosynthesis screening BI Accession Number(s): [id number] cc: Robert Ferreira D.O.; MILE SANCHEZ Patient Name: GIA RUIZ MR#: [id number] : 1950 Exam Date: 08/29/2024 Ordering Doctor: [...] prostate cancer at age 71. LOCATION: [facility] BREAST COMPOSITION: The breasts are almost [...] Signed By: 08/29/24 1558 DD/ 1557 TD/TT: Nailer Hand: [facility] Radiology, Radiologist, MD - 08/29/2024 The [place] [id number] Mammography Report Signed Patient: GIA RUIZ MR#: [id number] : 1950 Acct:[id number] Age/Sex: 74 / F ADM Date: 08/29/24 Loc: MAMMO Attending Dr: Robert Ferreira D.O. Ordering Physician: Robert Ferreira D.O. Results: Date of Service: 08/29/24 Follow Up: Procedure(s): MM tomosynthesis screening BI Accession Number(s): [id number] cc: Robert Ferreira D.O.; MILE SANCHEZ Patient Name: GIA RUIZ MR#: [id number] : 1950 Exam Date: 08/29/2024 Ordering Doctor: [...] prostate cancer at age 71. LOCATION: [facility] BREAST COMPOSITION: The breasts are almost [...] Avery M.D. Signed By: 08/29/24 1558 DD/ 56 TD/TT: Nailer Hand: GIOVANNI [facility] Radiology Study observation (narrative) [facility] MM TOMOSYNTHESIS SCREENING B IOrdered By: Radiologist Radiology on 08-29-2024 [facility] Work Phone: IGP,APTIMA HPV,AGE GDLNon AGE GDLN ACOG TESTING Note . [facility] Comment on above: TESTS RESULT FLAG UN ITS REF RANGE LAB Clinician Provided Cytology Information Source.............Vagina No. of containers..01 ThinPrep Vial Age Algo ACOG La... Note 01 <21 or >65 or no age provided FLAG LEGEND: L-Low Normal,H-High Normal,LL-Alert Low,HH-Alert High <-Panic Low,>-Panic High,A-Abnormal,AA-Critical Abnormal Performed at: 01 =G [facility] [address] Lorena Dennis MD, PAP IG (IMAGE GUIDED) Note . [facility] Comment on above: TESTS RESULT FLAG UN ITS REF RANGE LAB DIAGNOSIS: 02 NEGATIVE FOR INTRAEPITHELIAL LESION OR MALIGNANCY. CELLULAR CHANGES ASSOCIATED WITH ATROPHY ARE PRESENT. Specimen adequacy: 02 Satisfactory for evaluation. Performed by: 02 Bambi [employer] Accessory Installer ([facility]) . 02 Note: Note 03 The Pap smear is a screening test designed to aid in the detection of premalignant and malignant conditions of the uterine cervix. It is not a diagnostic procedure and should not be used as the sole means of detecting cervical cancer. Both false-positive and false-negative reports do occur. Test Methodology: Note 03 This liquid based ThinPrep(R) pap test was screened with the use of an image guided system. FLAG LEGEND: L-Low Normal,H-High Normal,LL-Alert Low,HH-Alert High <-Panic Low,>-Panic High,A-Abnormal,AA-Critical Abnormal Performed at: 02 [facility] [address] [place] [address] Daron Winslow MD, 03 WB [facility] [address] [address] Lorena Dennis MD, Performed at: =G - [facility] [address] [id number] Business Management Associate: Lorena Dennis MD, Phone: [phone] Performed at: [facility] - [facility] [address] [place], [place] [id number] Business Management Associate: Daron Winslow MD, Phone: [phone] RENEA MILNER [facility] Pre-Visit Planningon 025 Pre-Visit Planning Pre-Visit Planning From: Sulema Urbina To: Bambi Reynolds; Sent: 08/26/2024 11:21:21 EDT Subject: Pre-Visit Planning Due Date/Time: 08/26/2024 11:21:00 EDT Caller Name: GIA RUIZ; Caller Number: [phone], Jennifer Praveen Bambi. During a pre-visit planning chart review, I noted the following documentation in the medical record: Current Problem List: Crohn's disease. Current Medication List: adalimumab. Based on the documentation above do you feel the patient has any of the following? I can update the Chronic Problem List with your response if you would like. -Immunodeficiency due to drugs -Other (please specify): In responding to this request, please exercise your independent professional judgment. The fact that a question is asked does not imply that any particular answer is desired or expected. If you have any questions, please feel free to contact me at extension [phone]. Thank you and have a good weekend! Sulema Urbina LPN Clinical [employer] [place] [address] Extension: [phone] [email or web address] No Panel Informationon 06-08 Consent obtained: written (The rationale for Mohs as well as the risks, benefits, and alternatives. The risks of infection, scarring, bleeding, prolonged wound healing, incomplete removal, allergy to anesthesia or meds, nerve injury, and recurrence were addressed.) [place] Protocol: Procedure explained and questions answered to [...] sodium bicarbonate Procedure Details: Biopsy accession number: [id number] Biopsy lab: [id number] Date of biopsy: 04/12/2024 Frozen section biopsy [...] positive blocks: 0 (more content not included)... [facility] [employer] No Panel InformationOrdered By: Paige Sepulveda on 06-08-2024 [facility] [employer] CHEMISTRYOrdered By: [email or web address] SYSTEM on 05-26-2024 Albumin [Mass/Vol] 3.9 g/dL [...] (Bld) [Mass fraction] 5.4 % Normal <=5.9% [facility] [employer] CMPon 05-26-2024 Albumin [Mass/Vol] 3.9 g/dL Normal 3.3-5.0 [facility] Comment on above: Performed By: #### 2 [id number] #### [facility] [address] [place] [address] Albumin/Globulin (S) [Mass conc ratio] 1.0 Low 1.1-2.2 [facility] Comment on above: Performed By: #### 2 [id number] #### [facility] [facility] [address] [place] [address] ALP [Catalytic activity/Vol] 57 Int._Unit/L Normal 21-98 [facility] Comment on above: Performed By: #### 2 [id number] #### [facility] [address] [place] [address] ALT No additional P-5'-P [Catalytic activity/Vol] 17 Int._Unit/L Normal 6-46 [facility] Comment on above: Performed By: #### 2 [id number] #### [facility] [address] [place] [address] Anion gap [Moles/Vol] 11 mmol/L Normal 6-16 [facility] Comment on above: Performed By: #### 2 [id number] #### [facility] [address] [place] [address] AST [Catalytic activity/Vol] 18 Int._Unit/L Normal 5-43 [facility] Comment on above: Performed By: #### 2 [id number] #### [facility] [address] [place] [address] Bilirubin [Mass/Vol] 0.6 mg/dL Normal 0.0-1.1 [facility] Comment on above: Performed By: #### 2 [id number] #### [facility] [address] [place] [address] Calcium [Mass/Vol] 9.1 mg/dL Normal 8.9-11.1 [facility] Comment on above: Performed By: #### 2 [id number] #### [facility] [address] [place] [address] Chloride [Moles/Vol] 98 mmol/L Low 101-111 [facility] Comment on above: Performed By: #### 2 [id number] #### [facility] [address] [place] [address] CO2 [Moles/Vol] 29 mmol/L Normal 21-31 [facility] Comment on above: Performed By: #### 2 [id number] #### [facility] [address] [place] [address] Creatinine [Mass/Vol] 0.8 mg/dL Normal 0.5-1.3 [facility] Comment on above: Performed By: #### 2 [id number] #### [facility] [address] [place] [address] Globulin (S) [Mass/Vol] 3.8 g/dL Normal 1.4-4.0 [facility] Comment on above: Performed By: #### 2 [id number] #### [facility] [address] [place] [address] Glucose [Mass/Vol] 77 mg/dL Normal 55-199 [facility] Comment on above: Performed By: #### 2 [id number] #### [facility] [address] [place] [address] Potassium [Moles/Vol] 3.8 mmol/L Normal 3.5-5.3 [facility] Comment on above: Performed By: #### 2 [id number] #### [facility] [address] [place] [address] Protein [Mass/Vol] 7.7 g/dL Normal 6.0-7.8 [facility] Comment on above: Performed By: #### 2 [id number] #### [facility] [address] [place] [address] Sodium [Moles/Vol] 134 mmol/L Low 135-145 [facility] Comment on above: Performed By: #### 2 855448 #### [facility] [address] [place] [address] Urea nitrogen [Mass/Vol] 18 mg/dL Normal 5-21 [facility] Comment on above: Performed By: #### 2 280883 #### [facility] [address] [place] [address] Urea nitrogen/Creatinine [Mass ratio] 22 No Units High 10-20 [facility] Comment on above: Performed By: #### 2 [id number] #### [facility] [address] [place] [address] MmeC3tcs 05-26-2024 HbA1c (Bld) [Mass fraction] 5.4 % Normal <=5.9 [facility] Comment on above: Performed By: #### 7 [id number] #### [facility] [address] [place] [address] Lipid Panelon 05-26-2024 Cholesterol [Mass/Vol] 161 mg/dL Normal 120-200 [facility] Comment on above: Performed By: #### 2 [id number] #### [facility] [address] [place] [address] Cholesterol in HDL [Mass/Vol] 71 mg/dL Invalid Interpretation Code [facility] Comment on above: Result Comment: '>= 60 LOW RISK' '<= 40 HIGH RISK' Performed By: #### 2 [id number] #### [facility] [address] [place] [address] Cholesterol in LDL [Mass/Vol] 82 mg/dL Normal <=129 [facility] Comment on above: Performed By: #### 2 [id number] #### [facility] [address] [place] [address] Cholesterol in VLDL [Mass/Vol] 12 mg/dL Normal 7-40 [facility] Comment on above: Performed By: #### 2 [id number] #### [facility] [address] [place] [address] Triglyceride [Mass/Vol] 58 mg/dL Normal <=149 [facility] Comment on above: Performed By: #### 2 [id number] #### [facility] [address] [place] [address] TSHon 05-26-2024 TSH Qn 0.82 m[IU]/L Normal 0.34-5.60 [facility] Comment on above: Performed By: #### 2 210203 #### [facility] [address] [place] [address] U MA/Cr Ratioon 05-26-2024 Albumin DL <= 20 mg/L (U) [Mass/Vol] 0.9 mg/dL Normal 0.0-1.9 [facility] Comment on above: Performed By: #### 1 [id number] #### [facility] [address] [place] [address] Albumin/Creatinine DL <= 20 mg/L (U) [Mass ratio] 21.6 mg/gm Cr Normal .0-30.0 [facility] Comment on above: Result Comment: 30-3 00 mg/g Cr indicates an increased risk for diabetic nephropathy. >300 mg/g Cr is consistent with clinical nephropathy. Performed By: #### 1 [id number] #### [facility] [address] [place] [address] U Creatinine 41.7 mg/dL Invalid Interpretation Code [facility] Comment on above: Performed By: #### 1 [id number] #### [facility] [address] [place] [address] eGFRon 05-26-2024 eGFR 78 mL/min/1.73 m2 Normal >=59 [facility] Comment on above: Performed By: #### 1 [id number] #### [facility] [address] [place] [address] Ambulatory Visit Summaryon 0 05-19-2024 Ambulatory Visit [...] 2024 9:00 AM EST With: Where: [address] [address]- Thursday 10:00 AM EDT With: Bambi Reynolds Where: [address] [address]- Thursday 11:00 AM EDT With: Bertha BLAND MD Where: [facility] [address] [place] [address]- Thursday 1:00 PM EST With: Where: [address] [address]- You Need to Complete the Following Comprehensive [...] Medication (calc (more content not included)... Normal [facility] Family Medicine Office/Clini c Noteon 05-19-2024 Family [...] of clutter to prevent tripping and/or falling. [place] Advance Directives reviewed. Documents present in chart. [...] PCP visit. Labs to be completed with [facility]. No concerns with bowel/ bladder. Colonoscopy last [...] 4. Hyp (more content not included)... Normal [facility] Comment on above: Result Comment: Elec [...] taken Amount of lidocaine used: 0.5 cc [facility] No Panel InformationOrdered By: Jocelin Garcia on 04-12-2024 [facility] Ambulatory Visit Summaryon 1 Ambulatory Visit Summary Ambulatory Visit Summary GIA RUIZ Anthony :1950 Visit Date:03/15/2024 Ambulatory Visit Instructions Your Diagnosis Labial abscess Former smoker BMI 35.0-35.9,adult Obesity (BMI 35.0-39.9 without comorbidity) Your Care Team Attending Physician - Bambi Reynolds Primary Care Physician - Babmi Reynolds This Is Your Medications List Misc [...] Appointments 2023 1:00 PM EST With: Where: [facility] [address] [address]- Thursday 11:00 AM EDT With: EDWINA MOSLEY, Bertha Vu Where: [facility] [address] [place] [address]- Medications What How Much When Instructions Unchanged [...] you for choosing us for your care. [facility] Ambulatory Visit Summary Ambulatory Visit Summary GIA RUIZ :1950 Visit Date:03/15/2024 Ambulatory Visit Instructions Your Diagnosis Labial abscess Former smoker BMI 35.0-35.9,adult Obesity (BMI 35.0-39.9 without comorbidity) Your Care Team Attending Physician - Bambi Reynolds Primary Care Physician - Bambi Reynolds This Is Your Medications List Mis Prescription (BACLOFEN 10 MG TABLET) acetaminophen (acetaminophen [...] Appointments 2023 1:00 PM EST With: Where: [facility] [address] [address]- Thursday 11:00 AM EDT With: EDWINA MOSLEY, Bertha Vu Where: [facility] [address] [address]- Medications What How Much When Instructions Unchanged [...] you for choosing us for your care. Normal [facility] Family Medicine Office/Clini c Noteon 03-15-2024 Family [...] q12hr, # 20 cap(s), Refills(s) 0, Pharmacy: [facility]/pharmacy #[id number], 158, cm, 03/15/24 15:36:00 EDT, Height/Length Dosing, 87.9, kg, 03/15/24 15:36:00 EDT, Weight Dosing 2. Former smoker (Z87.891: Personal history of nicotine dependence) continue not smoking Ordered: cephalexin, 500 mg = 1 cap(s), Oral, q12hr, # 20 cap(s), Refills(s) 0, Pharmacy: [facility]/pharmacy #[id number], 158, cm, 03/15/24 15:36:00 EDT, Height/Length Dosing, 87.9, kg, 03/15/24 15:36:00 EDT, Weight Dosing 3. BMI 35.0-35.9,adult (Z68.35: Body mass index [BMI] 35.0-35.9, adult) BMI education Ordered: cephalexin, 500 mg = 1 cap(s), Oral, q12hr, # 20 cap(s), Refills(s) 0, Pharmacy: [facility]/pharmacy #[id number], 158, cm, 03/15/24 15:36:00 EDT, Height/Length Dosing, 87.9, kg, 03/15/24 15:36:00 EDT, Weight Dosing 4. Obesity (BMI 35.0-39.9 without comorbidity) (E66.9: Obesity, unspecified) see above Ordered: cephalexin, 500 mg = 1 cap(s), Oral, q12hr, # 20 cap(s), Refills(s) 0, [id number], cm, 03/15/24 15:36:00 [...] tab(s), Oral, TID Methyl B-12, See Instructions Mounjaro 2.5 mg/0.5 [...] Heart disease: (more content not included)... Normal [facility] Comment on above: Result Comment: Elec [...] KUB -repeat KUB/TIM in 1 yr Ordered: 52950 Measure Post Void residual urine and/or bladder capacity by US- non-imaging Urnls Dip Stick Auto w/o Microscopy POC 70620 2. Incomplete bladder emptying (R33.9: Retention of urine, unspecified) PVR (cc): 02/13/23 - 120 (voided 45 min prior) 08/17/23 - 326 (did not perform double void maneuver) 09/14/23 - 105 mL (pt voided 30min prior) TODAY: 162ml No recent UTIs. Ordered: 21900 Measure Post Void residual urine and/or bladder [...] When Contact Information EDWINA MOSLEY, Bertha Vu, TEODORO Within 1 year [facility] [place] [id number]- Additional Instructions: LASHONDA & TIM prior Patient Education Kidney Stones, Udwd-op-Gtwa Problem List/Past Medical History Ongoing Asymptomatic microscopic [...] 2.5 mg, SubCutaneous, qWeek omeprazole 20 mg Bernice, See Instructions ondansetron 8 mg Tab, 8 mg= 1 tab(s), (more content not included)... [facility] Comment on above: Result Comment: Elec tronically Signed By: NAS MG, MICAH Zambrano.peter\Date and Time Signed: 02/18/24 13:25 EDT Reminderson 02-11-2024 Reminders Reminders From: Nusrat Vernon To: ROXANNE - Dayana Bland; Sent: 08/17/2023 12:43:51 EDT Show up: 01/17/2024 12:35:00 EDT Subject: KUB and TIM Reminder Message Pt needs KUB and TIM prior to appt in 6 months due to kidney stones and incomplete emptying. Pt is scheduled for TIM 02/02/24 @11am. Also has an order for KUB. results in chart for review [facility] Ambulatory Visit Summaryon 0 02-09-2024 Ambulatory Visit Summary Ambulatory Visit Summary GIA RUIZ Anthony :1950 Visit Date:02/09/2024 Ambulatory Visit Instructions Your [...] MOSLEY, Bertha Vu Where: [facility] [address] [place] [address]- 2023 1:00 PM EST With: Where: [facility] [address] [address]- Someone Will Contact You Regarding These Appointments [facility] External Ambulatory Referral, Patient choice/referral by family/friend, Dermatology, Dr. Chávez-GIOVANNI dermatology, 02/09/24 14:26:00 EDT, Skin texture changes [...] a survey (more content not included)... Normal [facility] Family Medicine Office/Clini c Noteon 02-09-2024 Family [...] texture and color. will send referral to [facility]. her goes to this office as well. RTC as needed Ordered: [facility] External Ambulatory Referral 2. Former smoker (Z87.891: Personal history of nicotine dependence) continue not smoking Ordered: [facility] External Ambulatory Referral 3. BMI 34.0-34.9,adult (Z68.34: Body mass index [BMI] 34.0-34.9, adult) BMI education given Ordered: [facility] External Ambulatory Referral 4. Class 1 obesity due to excess calories in adult (E66.09: Other obesity due to excess calories) see above Ordered: [facility] External Ambulatory Referral Follow-up No qualifying data [...] virus vaccine, inactivated 04/21/2022 Recorded SARS-CoV-2 (COVID-19) [id number].[id number] 04/21/2022 Recorded influenza virus vaccine, inactivated 03/15/2021 Recorded SARS-CoV-2 (COVID-19) mRNA BNT-162b2 vax 03/15/2021 Recorded 2022-09-17: TPV70 SARS-CoV-2 (COVID-19) mRNA BNT-162b2 vax 08/08/2020 Given SARS-CoV-2 (COVID-19) mRNA BNT-162b2 vax 07/11/2020 Given zoster vaccine, inactivated 07/01/2019 Recorded zoster vaccine, inactivated 04/30/2019 Recorded influenza virus vaccine, inactivated 04/30/2019 Recorded Normal [facility] Comment on above: Result Comment: Elec [...] Locations R1: This test was performed at: [facility], [address] [place] [address], [facility]- , , [facility] Comment on above: Performed By: #### 2 [id number] #### [facility] [address] [place] [address] Ambulatory Visit Summaryon 0 01-21-2024 Ambulatory Visit Summary Ambulatory Visit Summary GIA RUIZ Anthony :1950 Visit Date:01/21/2024 Ambulatory Visit Instructions Your [...] MOSLEY, Bertha Vu Where: [facility] [address] [address]- 2023 1:00 PM EST With: Where: [facility] [address] [address]- Medications What How Much When Instructions Unchanged [...] survey. (more content not included)... Normal [facility] Medicine Office/Clini c Noteon 01-21-2024 Family Medicine [...] Urnls Dip Stick Auto w/o Microscopy POC 86900 2. Urinary frequency (R35.0: Frequency of micturition) see above Ordered: Urine Culture Urnls Dip Stick Auto w/o Microscopy POC 25653 3. Former smoker (Z87.891: Personal history of nicotine dependence) continue not smoking Ordered: Urnls Dip Stick Auto w/o Microscopy POC 31178 4. BMI 34.0-34.9,adult (Z68.34: Body mass index [BMI] 34.0-34.9, adult) BMI education Ordered: Urnls Dip Stick Auto w/o Microscopy POC 40434 5. Class 1 obesity due to excess calories in adult (E66.09: Other obesity due to excess calories) see above Ordered: Urnls Dip Stick Auto w/o Microscopy POC 65668 Orders: ciprofloxacin, 500 mg = 1 tab(s), Oral, q12hr, X 7 day(s), # 14 tab(s), Refills(s) 0, Pharmacy: [facility], 158, cm, 01/21/24 10:49:00 EDT, Height/Length Dosing, 86.1, kg, 01/21/24 10:49:00 EDT, Weight Dosing ciprofloxacin, 500 mg = 1 tab(s), Oral, q12hr, X 7 day(s), # 14 tab(s), Refills(s) 0, Pharmacy: [facility]/pharmacy #[id number], 158, cm, 01/21/24 10:49:00 EDT, Height/Length [...] Mother and Br (more content not included)... Normal [facility] Comment on above: Result Comment: Elec tronically Signed By: Bambi Reynolds\.br\Date and Time Signed: 01/21/24 11:10 EDT Consultation Noteon 11-05-19 Consultation Note [id number]#1.00 TIFF [facility] Ambulatory Visit Summaryon 0 10-05-2023 Ambulatory Visit Summary SARALAURENCENE Anthony :1950 Visit Date:10/05/2023 Ambulatory Visit Instructions Your Diagnosis Pre-op exam BMI 39.0-39.9,adult Former smoker Your Care Team Attending Physician - Bambi Reynolds Primary Care Physician - Bambi Reynolds This Is Your Medications List Mis Prescription (BACLOFEN 10 MG TABLET) acetaminophen (acetaminophen [...] Follow-Up Appointments Thursday 10:45 AM EDT With: EWDINA MOSLEY, Bertha Vu Where: [facility] [place] [id number]- \.br\ Medications\.br\ What How Much When Instructions\.br [...] for choosing us for your care.\.br\ \.br\ [facility] Auth for Release of Medical Recordson 10-05-2023 Auth for Release of Medical Records [id number]#1.0 0TIFF Normal [facility] Consultation Noteon 10-05-19 Consultation Note [id number]#1.0 0TIFF Normal [facility] Family Medicine Office/Clini c Noteon 10-05-2023 Family Medicine Office/Clinic Note HPI Staff Gia is a 73 year old female presenting for Surgical Clearance Pt having left knee surgery on 10/22/[address] Cárdenas Pt had pre surgical testing done last week [place] [facility], did blood work, urine, test, ekg sent records request for labs to [facility] History of Present Illness pt presents today [...] virus vaccine, inactivated 04/21/2022 Recorded SARS-CoV-2 (COVID-19) [id number].ORD![id number] 04/21/2022 Recorded influenza virus vaccine, inactivated 03/15/2021 Recorded SARS-CoV-2 (COVID-19) mRNA BNT-162b2 vax 03/15/2021 Recorded 2022-09-17: TPV70 SARS-CoV-2 (COVID-19) mRNA BNT-162b2 vax 08/08/2020 Given SARS-CoV-2 (COVID-19) mRNA BNT-162b2 vax 07/11/2020 Given zoster vaccine, inactivated 07/01/2019 Recorded zoster vaccine, inactivated 04/30/2019 Recorded influenza virus vaccine, inactivated 04/30/2019 Recorded Normal [facility] Comment on above: Result Comment: Elec tronically Signed By: Bambi Reynolds\.br\Date and Time Signed: 10/05/23 11:37 EDT Lab Reportson 10-05-2023 Lab Reports [id number]#1.00 TIFF Normal [facility] Provider Letteron 10-05-2023 Provider Letter [address] [place] [id number] October 05, [address] [place] [address] [address] : [address] Cárdenas, The above patient has been evaluated at your request for preoperative clearance. After assessment of available pertinent labs and diagnostic tests, I feel this patient is medically optimized for surgery. Final discretion of whether the patient is cleared for surgery remains up to the surgeon/anesthesiologi st. Thank you, CHUYITA Suresh Normal [facility] ECG 12-Leadon 10-02-2023 ECG 12-Lead [id number]#1.00 TIFF Normal [facility] Activated partial thrombopla stin time (aPTT) in platelet poor plasma by coagulation aOrdered By: Rosalinda Bernstein on 09-30-2023 aPTT Coag (PPP) [Time] 35.6 s 25.1-36.5 [facility] Comment on above: A hematocrit value g reater than 55% may lead to inaccurate results in coagulation testing. Patients having hematocrit values >55% require a special collection tube for coagulation studies. Please contact the laboratory at [phone] for redraw instructions. Alanine aminotransferase [En zymatic activity/volume] in Serum or PlasmaOrdered By: Rosalinda Bernstein on 09-30-2023 ALT [Catalytic activity/Vol] 17 U/L 7-52 [facility] Albumin [Mass/volume] in Ser um or Plasma by Bromocresol green (BCG) dye binding methoOrdered By: Rosalinda Bernstein on 09-30-2023 Albumin BCG dye [Mass/Vol] 4.2 g/dL 3.5-5.7 [facility] Alkaline phosphatase [Enzyma tic activity/volume] in Serum or PlasmaOrdered By: Rosalinda Bernstein on 09-30-2023 ALP [Catalytic activity/Vol] 46 U/L 34-104 [facility] Aspartate aminotransferase [ Enzymatic activity/volume] in Serum or PlasmaOrdered By: Rosalinda Bernstein on 09-30-2023 AST [Catalytic activity/Vol] 14 U/L 13-39 [facility] Basophils Auto (Bld) [#/Vol] Ordered By: Rosalidna Bernstein on 09-30-2023 Basophils (Bld) [#/Vol] 0.1 10*3/uL 0.0-0.2 [facility] Basophils/100 WBC Auto (Bld) Ordered By: Rosalinda Bernstein on 09-30-2023 Basophils/100 WBC (Bld) 0.8 % . [facility] Bilirubin Test strip Ql (U)O rdered By: Rosalinda Bernstein on 09-30-2023 Bilirubin Ql (U) Negative Negative [facility] Bilirubin.total [Mass/volume ] in Serum or PlasmaOrdered By: Rosalinda Bernstein on 09-30-2023 Bilirubin [Mass/Vol] 0.4 mg/dL 0.3-1.0 [facility] Calcium [Mass/volume] in Ser um or PlasmaOrdered By: Rosalinda Bernstein on 09-30-2023 Calcium [Mass/Vol] 9.3 mg/dL 8.6-10.3 [facility] Carbon dioxide, total [Moles /volume] in Serum or PlasmaOrdered By: Rosalinda Bernstein on 09-30-2023 CO2 [Moles/Vol] 28.2 mmol/L 21.0-31.0 [facility] Chloride [Moles/volume] in S soni or PlasmaOrdered By: Rosalinda Bernstein on 09-30-2023 Chloride [Moles/Vol] 95 mmol/L 98-107 [facility] Color Auto (U)Ordered By: Vasyl Bernstein on 09-30-2023 Color (U) Yellow Yellow [facility] Creatinine [Mass/volume] in Serum or PlasmaOrdered By: Rosalinda Bernstein on 09-30-2023 Creatinine [Mass/Vol] 0.70 mg/dL 0.60-1.20 [facility] Eosinophils Auto (Bld) [#/Vo l]Ordered By: Rosalinda Bernstein on 09-30-2023 Eosinophils (Bld) [#/Vol] 0.2 10*3/uL 0.0-0.45 [facility] Eosinophils/100 WBC Auto (Bl d)Ordered By: Rosalinda Bernstein on 09-30-2023 Eosinophils/100 WBC (Bld) 3.1 % . [facility] Erythrocyte distribution wid th Auto (RBC) [Ratio]Ordered By: Rosalinda Bernstein on 09-30-2023 Erythrocyte distribution width (RBC) [Ratio] 13.2 % 11.9-15.3 [facility] Globulin Calc (S) [Mass/Vol] Ordered By: Rosalinda Bernstein on 09-30-2023 Globulin (S) [Mass/Vol] 3.5 g/dL [facility] Glucose [Mass/volume] in Ser um or PlasmaOrdered By: Rosalinda Bernstein on 09-30-2023 Glucose [Mass/Vol] 80 mg/dL 70-100 [facility] Comment on above: ADA recommended refe rence rangeRandom Glucose Reference Range is dependent on time and content of last meal. Glucose of more than 200 mg/dL in a nonstressed, ambulatory subject supports the diagnosis of Diabetes Mellitus. Glucose mean value [Mass/vol ume] in Blood Estimated from glycated hemoglobinOrdered By: Rosalinda Bernstein on 09-30-2023 Average glucose Estimated from glycated hemoglobin (Bld) [Mass/Vol] 120 mg/dL [facility] Hematocrit Auto (Bld) [Volum e fraction]Ordered By: Rosalinda Bernstein on 09-30-2023 Hematocrit (Bld) [Volume fraction] 38.1 % 34.0-46.4 [facility] Hemoglobin A1c percentageOrd ered By: Rosalinda Bernstein on 09-30-2023 HbA1c (Bld) [Mass fraction] 5.8 % 4.3-5.6 [facility] Comment on above: Increased risk for d iabetes: 5.7 - 6.4diabetes: >6.4glycemic control for adults with diabetes: <7.0 Hemoglobin [Mass/volume] in BloodOrdered By: Rosalinda Bernstein on 09-30-2023 Hemoglobin (Bld) [Mass/Vol] 12.9 g/dL 11.8-15.4 [facility] INR in Platelet poor plasma by Coagulation assayOrdered By: Rosalinda Bernstein on 09-30-2023 INR Coag (PPP) [Relative time] 1.0 {INR} [facility] Comment on above: INR Therapeutic Rang e [...] on 09-30-2023 Ketones (U) [Mass/Vol] Negative Negative [facility] Leukocytes [#/volume] correc lisa for nucleated erythrocytes in Blood by Automated counOrdered By: Rosalinda Bernstein on 09-30-2023 WBC corrected for nucl RBC Auto (Bld) [#/Vol] 7.3 10*3/uL 3.8-11.6 [facility] Lymphocytes Auto (Bld) [#/Vo l]Ordered By: Rosalinda Bernstein on 09-30-2023 Lymphocytes (Bld) [#/Vol] 3.6 10*3/uL 1.00-4.8 [facility] Lymphocytes/100 WBC Auto (Bl d)Ordered By: Rosalinda Bernstein on 09-30-2023 Lymphocytes/100 WBC (Bld) 49.4 % . [facility] MCH Auto (RBC) [Entitic mass ]Ordered By: Rosalinda Bernstein on 09-30-2023 MCH (RBC) [Entitic mass] 29.7 pg 24.7-34.3 [facility] MCHC Auto (RBC) [Mass/Vol]Or dered By: Rosalinda Bernstein on 09-30-2023 MCHC (RBC) [Mass/Vol] 33.9 g/dL 32.0-35.0 [facility] MCV Auto (RBC) [Entitic vol] Ordered By: Rosalinda Bernstein on 09-30-2023 MCV (RBC) [Entitic vol] 87.5 fL 80-100 [facility] Monocytes Auto (Bld) [#/Vol] Ordered By: Rosalinda Bernstein on 09-30-2023 Monocytes (Bld) [#/Vol] 0.5 10*3/uL 0.0-0.8 [facility] Monocytes/100 WBC Auto (Bld) Ordered By: Rosalinda Bernstein on 09-30-2023 Monocytes/100 WBC (Bld) 7.4 % . [facility] Neutrophils Auto (Bld) [#/Vo l]Ordered By: Rosalinda Bernstein on 09-30-2023 Neutrophils (Bld) [#/Vol] 2.9 10*3/uL 1.8-7.7 [facility] Neutrophils/100 WBC Auto (Bl d)Ordered By: Rosalinda Bernstein on 09-30-2023 Neutrophils/100 WBC (Bld) 39.3 % . [facility] Nitrite Test strip Ql (U)Ord ered By: Rosalinda Bernstein on 09-30-2023 Nitrite Ql (U) Negative Negative [facility] No Panel InformationOrdered By: Rosalinda Bernstein on 09-30-2023 Estimated GFR (CKD-EPI) > 60.0 mL/Min [facility] Creatinine Clearance (Chem N/A [facility] Nucleated erythrocytes [Pres ence] in Blood by Automated countOrdered By: Rosalinda Bernstein on 09-30-2023 Nucleated RBC Auto Ql (Bld) 0.1 /100{WBC} 0-0.5 [facility] Platelet mean volume Auto (B ld) [Entitic vol]Ordered By: Rosalinda Bernstein on 09-30-2023 Platelet mean volume (Bld) [Entitic vol] 7.0 fL 6.3-10.7 [facility] Platelets Auto (Bld) [#/Vol] Ordered By: Rosalinda Bernstein on 09-30-2023 Platelets (Bld) [#/Vol] 320 10*3/uL 150-450 [facility] Potassium [Moles/volume] in Serum or PlasmaOrdered By: Rosalinda Bernstein on 09-30-2023 Potassium [Moles/Vol] 4.2 mmol/L 3.5-5.1 [facility] Protein Auto test strip (U) [Mass/Vol]Ordered By: Rosalinda Bernstein on 09-30-2023 Protein (U) [Mass/Vol] Negative Negative [facility] Protein [Mass/volume] in Ser um or PlasmaOrdered By: Rosalinda Bernstein on 09-30-2023 Protein [Mass/Vol] 7.7 g/dL 6.4-8.9 [facility] Prothrombin time (PT)Ordered By: Rosalinda Bernstein on 09-30-2023 PT Coag (PPP) [Time] 11.1 s 9.0-12.9 [facility] Comment on above: A hematocrit value g reater than 55% may lead to inaccurate results in coagulation testing. Patients having hematocrit values >55% require a special collection tube for coagulation studies. Please contact the laboratory at [phone] for redraw instructions. RBC Auto (Bld) [#/Vol]Ordere d By: Rosalinda Bernstein on 09-30-2023 RBC (Bld) [#/Vol] 4.35 10*6/uL 3.60-5.00 [facility] Serum or plasma albumin/glob ulin mass ratioOrdered By: Rosalinda Bernstein on 09-30-2023 Albumin/Globulin [Mass ratio] 1.2 {ratio} [facility] Serum or plasma anion gap de terminationOrdered By: Rosalinda Bernstein on 09-30-2023 Anion gap [Moles/Vol] 12.0 mmol/L 6.0-15.0 [facility] Sodium [Moles/volume] in Ser um or PlasmaOrdered By: Rosalinda Bernstein on 09-30-2023 Sodium [Moles/Vol] 131 mmol/L 136-145 [facility] Specific gravity Auto test s trip (U) [Rel density]Ordered By: Rosalinda Bernstein on 09-30-2023 Specific gravity (U) [Rel density] 1.006 1.001-1.030 [facility] Urea nitrogen [Mass/volume] in Serum or PlasmaOrdered By: Rosalinda Bernstein on 09-30-2023 Urea nitrogen [Mass/Vol] 9 mg/dL 7-25 [facility] Urine clarity by refractomet ry automatedOrdered By: Rosalinda Bernstein on 09-30-2023 Clarity Refractometry automated (U) Clear Clear [facility] Urine glucose measurement by automated test strip (mass/volume)Ordered By: Rosalinda Bernstein on 09-30-2023 Glucose Auto test strip (U) [Mass/Vol] Normal mg/dL Normal [facility] Urine hemoglobin detection b y automated test stripOrdered By: Rosalinda Bernstein on 09-30-2023 Hemoglobin Auto test strip Ql (U) Negative Negative [facility] Urine leukocyte esterase det ection by automated test stripOrdered By: Rosalinda Bernstein on 09-30-2023 Leukocyte esterase Auto test strip Ql (U) Negative Negative [facility] Urobilinogen Auto test strip (U) [Mass/Vol]Ordered By: Rosalinda Bernstein on 09-30-2023 Urobilinogen (U) [Mass/Vol] Normal mg/dL Normal [facility] WBC Auto (Bld) [#/Vol]Ordere d By: Rosalinda Bernstein on 09-30-2023 WBC (Bld) [#/Vol] 7.3 10*3/uL 3.8-11.6 [facility] pH Auto test strip (U)Ordere d By: Rosalinda Bernstein on 09-30-2023 pH (U) 7.0 [pH] 5.0-9.0 [facility] Ambulatory Visit Summaryon 0 09-14-2023 Ambulatory Visit [...] 11:20 AM EDT With: Bambi Reynolds Where: [facility] Invalid Interpretation Code [address] [place] [address] [place] [address]- \.br\ 2023 1:00 PM EST \.br\ With:\.br\ Where: [facility] Consultation Noteon 09-09-19 Consultation Note [id number]#1.0 0TIFF Normal [facility] Consultation Noteon 09-04-19 Consultation Note [id number]#1.0 0TIFF Normal [facility] Ambulatory Visit Summaryon 0 08-26-2023 Ambulatory Visit [...] AM EDT With: Where: [facility] Invalid Interpretation Code [address] [place] [address] [place] [address]- \.br\ 2023 1:00 PM EST \.br\ With:\.br\ Where: [facility] [place] [facility] Office/Clini c Noteon 08-26-2023 Family Medicine Office/Clinic Note HPI Staff Gia is a 73 year old female presenting to discuss medication pt wanting to discuss monjaro A1c: 07/21/23 5.9 pt has been seeing Dr young in [place] for weight loss had been taking Phentermine [...] Daily, # 90 tab(s), Refills(s) 1, Pharmacy: [facility], 159, cm, 05/13/23 14:24:00 EST, Height/Length Dosing, 95.1, kg, 05/13/23 14:24:00 EST, Weight Dosing atorvastatin, 20 mg = 1 tab(s), Oral, Daily, X 90 day(s), # 90 tab(s), Refills(s) 3, Pharmacy: [facility], 158, cm, 08/26/23 10:12:00 EDT, Height/Length Dosing, 97.5, kg, 08/26/23 10:12:00 EDT, Weight Dosing levothyroxine, 125 mcg = 1 tab(s), Oral, Daily, # 7 tab(s), Refills(s) 0, Pharmacy: [facility]/pharmacy #[id number], 159, cm, 05/13/23 14:24:00 EST, Height/Length [...] virus vaccine, inactivated 04/21/2022 Recorded SARS-CoV-2 (COVID-19) [id number] 04/21/2022 Recorded influenza virus vaccine, inactivated 03/15/2021 Recorded SARS-CoV-2 (COVID-19) mRNA BNT-162b2 vax 03/15/2021 Recorded (more content not included)... Normal [facility] Comment on above: Result Comment: Elec tronically Signed By: Bambi Reynolds\.br\Date and Time Signed: 08/26/23 10:54 EDT Ambulatory Visit Summaryon 0 08-17-2023 Ambulatory Visit Summary GIA RUIZ :1950 Visit Date:08/17/2023 Ambulatory Visit Instructions Your [...] AM EDT With: Where: [facility] Invalid Interpretation Code [address] [place] [address] [place] [address]- \.br\ Thursday 1:00 PM EST \.br\ With:\.br\ Where: [facility] [place] Patient Educationon 08-17-19 Patient Education Obstetrics and Gynecology Acute Urinary [...] these instructions at home: Medicines ? Take dnvy-xwn-owvylwd and prescription medicines only as told by [...] provider. Document Revised: 01/23/2021 Document Reviewed: 01/23/2021 [employer] Patient Education ? 2022 [employer]. [facility] Urology Office/Clinic Noteon 08-17-2023 Urology Office/Clinic Note [...] Bertha Vu, URL [facility] [address] [place] [address] [phone] Additional Instructions: 6 mos w/ KUB and TIM, nurse visit for PVR in 1 month Patient Education Acute Urinary Retention, Female I, Nusrat Vernon, personally scribed for Dr. Bland on 08/17/2023 12:31:53. . Documentation recorded by the scribe, Nusrat Vernon, accurately reflects the services(s) I performed and [...] Oral, Da (more content not included)... Normal [facility] Comment on above: Result Comment: Elec tronically Signed By: Bertha BLAND MD\.br\Date and Time Signed: 08/17/23 12:34 EDT\.br\Electronically Co-Signed By: Nusrat Vernon\.br\Date and Time Co-Signed: 08/17/23 12:32 EDT Consultation Noteon 08-14-19 Consultation Note [id number]#1.0 0TIFF Normal [facility] Basophils Auto (Bld) [#/Vol] Ordered By: Cesar Estrada on 08-13-2023 Basophils (Bld) [#/Vol] 0.1 10*3/uL 0.0-0.2 [facility] Basophils/100 WBC Auto (Bld) Ordered By: Cesar Estrada on 08-13-2023 Basophils/100 WBC (Bld) 0.8 % . [facility] C reactive protein [Mass/vol ume] in Serum or PlasmaOrdered By: Cesar Estrada on 08-13-2023 CRP [Mass/Vol] < 0.5 mg/dL 0.0-0.5 [facility] Eosinophils Auto (Bld) [#/Vo l]Ordered By: Cesar Estrada on 08-13-2023 Eosinophils (Bld) [#/Vol] 0.3 10*3/uL 0.0-0.45 [facility] Eosinophils/100 WBC Auto (Bl d)Ordered By: Cesar Estrada on 08-13-2023 Eosinophils/100 WBC (Bld) 3.2 % . [facility] Erythrocyte distribution wid th Auto (RBC) [Ratio]Ordered By: Cesar Estrada on 08-13-2023 Erythrocyte distribution width (RBC) [Ratio] 13.8 % 11.9-15.3 [facility] Hematocrit Auto (Bld) [Volum e fraction]Ordered By: Cesar Estrada on 08-13-2023 Hematocrit (Bld) [Volume fraction] 36.9 % 34.0-46.4 [facility] Hemoglobin [Mass/volume] in BloodOrdered By: Cesar Estrada on 08-13-2023 Hemoglobin (Bld) [Mass/Vol] 12.2 g/dL 11.8-15.4 [facility] Leukocytes [#/volume] correc lisa for nucleated erythrocytes in Blood by Automated counOrdered By: Cesar Estrada on 08-13-2023 WBC corrected for nucl RBC Auto (Bld) [#/Vol] 8.5 10*3/uL 3.8-11.6 [facility] Lymphocytes Auto (Bld) [#/Vo l]Ordered By: Cesar Estrada on 08-13-2023 Lymphocytes (Bld) [#/Vol] 3.3 10*3/uL 1.00-4.8 [facility] Lymphocytes/100 WBC Auto (Bl d)Ordered By: Cesar Estrada on 08-13-2023 Lymphocytes/100 WBC (Bld) 38.8 % . [facility] MCH Auto (RBC) [Entitic mass ]Ordered By: Cesar Estrada on 08-13-2023 MCH (RBC) [Entitic mass] 29.4 pg 24.7-34.3 [facility] MCHC Auto (RBC) [Mass/Vol]Or dered By: Cesar Estrada on 08-13-2023 MCHC (RBC) [Mass/Vol] 33.1 g/dL 32.0-35.0 [facility] MCV Auto (RBC) [Entitic vol] Ordered By: Cesar Estrada on 08-13-2023 MCV (RBC) [Entitic vol] 88.8 fL 80-100 [facility] Monocytes Auto (Bld) [#/Vol] Ordered By: Cesar Estrada on 08-13-2023 Monocytes (Bld) [#/Vol] 0.8 10*3/uL 0.0-0.8 [facility] Monocytes/100 WBC Auto (Bld) Ordered By: Cesar Estrada on 08-13-2023 Monocytes/100 WBC (Bld) 9.8 % . [facility] Neutrophils Auto (Bld) [#/Vo l]Ordered By: Cesar Estrada on 08-13-2023 Neutrophils (Bld) [#/Vol] 4.0 10*3/uL 1.8-7.7 [facility] Neutrophils/100 WBC Auto (Bl d)Ordered By: Cesar Estrada on 08-13-2023 Neutrophils/100 WBC (Bld) 47.4 % . [facility] Nucleated erythrocytes [Pres ence] in Blood by Automated countOrdered By: Cesar Estrada on 08-13-2023 Nucleated RBC Auto Ql (Bld) 0.1 /100{WBC} 0-0.5 [facility] Platelet mean volume Auto (B ld) [Entitic vol]Ordered By: Cesar Estrada on 08-13-2023 Platelet mean volume (Bld) [Entitic vol] 6.8 fL 6.3-10.7 [facility] Platelets Auto (Bld) [#/Vol] Ordered By: Cesar Estrada on 08-13-2023 Platelets (Bld) [#/Vol] 309 10*3/uL 150-450 [facility] RBC Auto (Bld) [#/Vol]Ordere d By: Cesar Estrada on 08-13-2023 RBC (Bld) [#/Vol] 4.16 10*6/uL 3.60-5.00 [facility] WBC Auto (Bld) [#/Vol]Ordere d By: Cesar Estrada on 08-13-2023 WBC (Bld) [#/Vol] 8.5 10*3/uL 3.8-11.6 [facility] Outside Diabetes Eye Examon 08-06-2023 Outside Diabetes Eye Exam [id number]#1.0 0TIFF Normal [facility] Consultation Noteon 06-11-19 Consultation Note [id number]#1.0 0TIFF Normal [facility] CHEMISTRYOrdered By: Serenity tejeda on 05-13-2023 Cholesterol [Mass/Vol] 167 mg/dL Normal [...] Estrada on 03-31-2023 Glucose [Mass/Vol] 96 mg/dL [facility] Comment on above: Random Glucose Refer ence Range is dependent on time and content of last meal. Glucose of more than 200 mg/dL in a nonstressed, ambulatory subject supports the diagnosis of Diabetes Mellitus. Glucose Glucometer (BldC) [M ass/Vol]Ordered By: Cesar Estrada on 03-12-2023 Glucose [Mass/Vol] 94 mg/dL [facility] Comment on above: Random Glucose Refer ence Range is dependent on time and content of last meal. Glucose of more than 200 mg/dL in a nonstressed, ambulatory subject supports the diagnosis of Diabetes Mellitus. Basophils Auto (Bld) [#/Vol] Ordered By: Adriana Cárdenas on 11-24-2022 Basophils (Bld) [#/Vol] 0.1 10*3/uL 0.0-0.2 [facility] Basophils/100 WBC Auto (Bld) Ordered By: Adriana Cárdenas on 11-24-2022 Basophils/100 WBC (Bld) 1.3 % . [facility] Bilirubin Test strip Ql (U)O rdered By: Adriana Cárdenas on 11-24-2022 Bilirubin Ql (U) Negative Negative [facility] Calcium [Mass/volume] in Ser um or PlasmaOrdered By: Adriana Cárdenas on 11-24-2022 Calcium [Mass/Vol] 9.4 mg/dL 8.6-10.3 [facility] Carbon dioxide, total [Moles /volume] in Serum or PlasmaOrdered By: Adriana Cárdenas on 11-24-2022 CO2 [Moles/Vol] 31.1 mmol/L 21.0-31.0 [facility] Chloride [Moles/volume] in S soni or PlasmaOrdered By: Adriana Cárdenas on 11-24-2022 Chloride [Moles/Vol] 95 mmol/L 98-107 [facility] Color Auto (U)Ordered By: Darien Cárdenas on 11-24-2022 Color (U) Yellow Yellow [facility] Creatinine [Mass/volume] in Serum or PlasmaOrdered By: Adriana Cárdenas on 11-24-2022 Creatinine [Mass/Vol] 0.68 mg/dL 0.60-1.20 [facility] Eosinophils Auto (Bld) [#/Vo l]Ordered By: Adriana Cárdenas on 11-24-2022 Eosinophils (Bld) [#/Vol] 0.3 10*3/uL 0.0-0.45 [facility] Eosinophils/100 WBC Auto (Bl d)Ordered By: Adriana Cárdenas on 11-24-2022 Eosinophils/100 WBC (Bld) 4.1 % . [facility] Erythrocyte distribution wid th Auto (RBC) [Ratio]Ordered By: Adriana Cárdenas on 11-24-2022 Erythrocyte distribution width (RBC) [Ratio] 13.0 % 11.9-15.3 [facility] Glucose [Mass/volume] in Ser um or PlasmaOrdered By: Adriana Cárdenas on 11-24-2022 Glucose [Mass/Vol] 94 mg/dL 70-100 [facility] Comment on above: ADA recommended refe rence rangeRandom Glucose Reference Range is dependent on time and content of last meal. Glucose of more than 200 mg/dL in a nonstressed, ambulatory subject supports the diagnosis of Diabetes Mellitus. Glucose mean value [Mass/vol ume] in Blood Estimated from glycated hemoglobinOrdered By: Adriana Cárdenas on 11-24-2022 Average glucose Estimated from glycated hemoglobin (Bld) [Mass/Vol] 126 mg/dL [facility] Hematocrit Auto (Bld) [Volum e fraction]Ordered By: Adriana Cárdenas on 11-24-2022 Hematocrit (Bld) [Volume fraction] 36.8 % 34.0-46.4 [facility] Hemoglobin A1c percentageOrd ered By: Adriana Cárdenas on 11-24-2022 HbA1c (Bld) [Mass fraction] 6.0 % 4.3-5.6 [facility] Comment on above: Increased risk for d iabetes: 5.7 - 6.4diabetes: >6.4glycemic control for adults with diabetes: <7.0 Hemoglobin [Mass/volume] in BloodOrdered By: Adriana Cárdenas on 11-24-2022 Hemoglobin (Bld) [Mass/Vol] 12.5 g/dL 11.8-15.4 [facility] Ketones Auto test strip (U) [Mass/Vol]Ordered By: Adriana Cárdenas on 11-24-2022 Ketones (U) [Mass/Vol] Negative Negative [facility] Leukocytes [#/volume] correc lisa for nucleated erythrocytes in Blood by Automated counOrdered By: Adriana Cárdenas on 11-24-2022 WBC corrected for nucl RBC Auto (Bld) [#/Vol] 7.7 10*3/uL 3.8-11.6 [facility] Lymphocytes Auto (Bld) [#/Vo l]Ordered By: Adriana Cárdenas on 11-24-2022 Lymphocytes (Bld) [#/Vol] 2.6 10*3/uL 1.00-4.8 [facility] Lymphocytes/100 WBC Auto (Bl d)Ordered By: Adriana Cárdenas on 11-24-2022 Lymphocytes/100 WBC (Bld) 34.2 % . [facility] MCH Auto (RBC) [Entitic mass ]Ordered By: Adriana Cárdenas on 11-24-2022 MCH (RBC) [Entitic mass] 29.8 pg 24.7-34.3 [facility] MCHC Auto (RBC) [Mass/Vol]Or dered By: Adriana Cárdenas on 11-24-2022 MCHC (RBC) [Mass/Vol] 33.9 g/dL 32.0-35.0 [facility] MCV Auto (RBC) [Entitic vol] Ordered By: Adriana Cárdenas on 11-24-2022 MCV (RBC) [Entitic vol] 87.8 fL 80-100 [facility] Monocytes Auto (Bld) [#/Vol] Ordered By: Adriana Cárdenas on 11-24-2022 Monocytes (Bld) [#/Vol] 1.0 10*3/uL 0.0-0.8 [facility] Monocytes/100 WBC Auto (Bld) Ordered By: Adriana Cárdenas on 11-24-2022 Monocytes/100 WBC (Bld) 12.4 % . [facility] Neutrophils Auto (Bld) [#/Vo l]Ordered By: Adriana Cárdenas on 11-24-2022 Neutrophils (Bld) [#/Vol] 3.7 10*3/uL 1.8-7.7 [facility] Neutrophils/100 WBC Auto (Bl d)Ordered By: Adriana Cárdenas on 11-24-2022 Neutrophils/100 WBC (Bld) 48.0 % . [facility] Nitrite Test strip Ql (U)Ord ered By: Adriana Cárdenas on 11-24-2022 Nitrite Ql (U) Negative Negative [facility] No Panel InformationOrdered By: Adriana Cárdenas on 11-24-2022 Estimated GFR (CKD-EPI) > 60.0 mL/Min [facility] Creatinine Clearance (Chem N/A [facility] Nucleated erythrocytes [Pres ence] in Blood by Automated countOrdered By: Adriana Cárdenas on 11-24-2022 Nucleated RBC Auto Ql (Bld) 0.1 /100{WBC} 0-0.5 [facility] Platelet mean volume Auto (B ld) [Entitic vol]Ordered By: Adriana Cárdenas on 11-24-2022 Platelet mean volume (Bld) [Entitic vol] 6.9 fL 6.3-10.7 [facility] Platelets Auto (Bld) [#/Vol] Ordered By: Adriana Cárdenas on 11-24-2022 Platelets (Bld) [#/Vol] 305 10*3/uL 150-450 [facility] Potassium [Moles/volume] in Serum or PlasmaOrdered By: Adriana Cárdenas on 11-24-2022 Potassium [Moles/Vol] 4.5 mmol/L 3.5-5.1 [facility] Protein Auto test strip (U) [Mass/Vol]Ordered By: Adriana Cárdenas on 11-24-2022 Protein (U) [Mass/Vol] Negative Negative [facility] RBC Auto (Bld) [#/Vol]Ordere d By: Adriana Cárdenas on 11-24-2022 RBC (Bld) [#/Vol] 4.19 10*6/uL 3.60-5.00 [facility] Serum or plasma anion gap de terminationOrdered By: Adriana Cárdenas on 11-24-2022 Anion gap [Moles/Vol] 9.4 mmol/L 6.0-15.0 [facility] Sodium [Moles/volume] in Ser um or PlasmaOrdered By: Adriana Cárdenas on 11-24-2022 Sodium [Moles/Vol] 131 mmol/L 136-145 [facility] Specific gravity Auto test s trip (U) [Rel density]Ordered By: Adriana Cárdenas on 11-24-2022 Specific gravity (U) [Rel density] 1.006 1.001-1.030 [facility] Urea nitrogen [Mass/volume] in Serum or PlasmaOrdered By: Adriana Cárdenas on 11-24-2022 Urea nitrogen [Mass/Vol] 18 mg/dL 7-25 [facility] Urine clarity by refractomet ry automatedOrdered By: Adriana Cárdenas on 11-24-2022 Clarity Refractometry automated (U) Clear Clear [facility] Urine glucose measurement by automated test strip (mass/volume)Ordered By: Adriana Cárdenas on 11-24-2022 Glucose Auto test strip (U) [Mass/Vol] Normal mg/dL Normal [facility] Urine hemoglobin detection b y automated test stripOrdered By: Adriana Cárdenas on 11-24-2022 Hemoglobin Auto test strip Ql (U) Negative Negative [facility] Urine leukocyte esterase det ection by automated test stripOrdered By: Adriana Cárdenas on 11-24-2022 Leukocyte esterase Auto test strip Ql (U) Negative Negative [facility] Urobilinogen Auto test strip (U) [Mass/Vol]Ordered By: Adriana Cárdenas on 11-24-2022 Urobilinogen (U) [Mass/Vol] Normal mg/dL Normal [facility] WBC Auto (Bld) [#/Vol]Ordere d By: Adriana Cárdenas on 11-24-2022 WBC (Bld) [#/Vol] 7.7 10*3/uL 3.8-11.6 [facility] pH Auto test strip (U)Ordere d By: Adriana Cárdenas on 11-24-2022 pH (U) 7.0 [pH] 5.0-9.0 [facility] CT ABD/PELVIS WO CONon 08-19 CT ABD/PELVIS [...] by: NICOLE BONE Date: 2022-08-19 11:[address] [facility] XR DEXA BONE DENSITYon 08-19 XR [...] authenticated by: NICOLE BONE Date: 2022-08-19 09:19 [facility] PAP ACOG PANEL 2: 30 to 65on 08-18-[address] [facility] Comment on above: Performed By: #### [id number] #### [facility] [address] [place] [address] Dr. Sol Friend Age Gdln ACOG Testing Comment [facility] Comment on above: Result Comment: <21 or >65 or no age provided Performed By: #### [id number] #### [facility] [address] [place] [address] Dr. Sol Friend DIAGNOSIS: Comment [facility] Comment on above: Result Comment: NEGA TIVE FOR INTRAEPITHELIAL LESION OR MALIGNANCY. CELLULAR CHANGES ASSOCIATED WITH ATROPHY AND INFLAMMATION ARE PRESENT. Performed By: #### [id number] #### [facility] [address] [place] [address] Dr. Sol Friend Methodology: Comment [facility] Comment on above: Result Comment: This liquid based ThinPrep(R) pap test was screened with the use of an image guided system. Performed By: #### [id number] #### [facility] [address] [place] [address] Dr. Sol Friend Note: Comment [facility] Comment on above: Result Comment: The Pap smear is a screening test designed to aid in the detection of premalignant and malignant conditions of the uterine cervix. It is not a diagnostic procedure and should not be used as the sole means of detecting cervical cancer. Both false-positive and false-negative reports do occur. . Performed By: #### [id number] #### [facility] [address] [place] [address] Dr. Sol Friend Performed by: Comment [facility] Comment on above: Result Comment: Aniket Covington, Ferryboat Operator (ASCP) Performed By: #### [id number] #### [facility] [address] [place], [place] [address] Dr. Sol Friend Specimen adequacy: Comment Normal [facility] Comment on above: Result Comment: Sati sfactory for evaluation. Endocervical component may not be distinguished in cases of atrophy. Areas of partially obscuring inflammatory exudate are present. Performed By: #### [id number] #### [facility] [address] [place], [place] [address] Dr. Sol Friend XR KUB 1 VIEWon [...] by: NICOLE BONE Date: 2022-07-31 12:15 Normal [facility] US KIDNEYSon 07-22-2022 US KIDNEYS EXAM: [...] DOMINICK SONI Date: 2022-07-22 09:20 Normal [facility] US BLADDERon 06-12-2022 US BLADDER EXAM: [...] NOLAN JAY Date: 2022-06-12 14:44 Normal [facility] CULTURE URINEon 06-05-2022 CULTURE URINE Culture Observations : NO GROWTH. Normal [facility] Comment on above: Performed By: #### U RCX ####[facility] [address] [place] [id number]. Sol Friend UA (CLEAN/CATCH) MICROSCOPIC IF INDICATEon 06-05-2022 Bilirubin Ql (U) Negative Normal NEGATIVE [facility] Comment on above: Performed By: #### U MILAN HINTON ####[facility] Qnpiazhxxx[address] [place] [id number]. Sol Friend Clarity (U) CLEAR Normal CLEAR [facility] Comment on above: Performed By: #### U MILAN HINTON ####[facility] [address]jxythwm[address] [place] [id number]. Sol Friend Color (U) LT. YELLOW Normal YELLOW [facility] Comment on above: Performed By: #### U MARY JANE UMICRO ####[facility] Qrekgflkmt[address] [place] [address]Dr. Sol Friend Glucose Ql (U) Negative Normal NEGATIVE [facility] Comment on above: Performed By: #### MILAN PULLIAM ####[facility] Esiyayxxqe[address] [place] [address]Dr. Sol Friend Hemoglobin Ql (U) LARGE Abnormal NEGATIVE [facility] Comment on above: Performed By: #### MILAN PULLIAM ####[facility] Jbvccnamna[address] [place] [address]Dr. Sol Friend Ketones Ql (U) Negative Normal NEGATIVE [facility] Comment on above: Performed By: #### MILAN PULLIAM ####[facility] [address]fokcoxlew[address] [place] [address]Dr. Sol Friend LEUKOCYTES Negative Normal NEGATIVE [facility] Comment on above: Performed By: #### MILAN PULLIAM ####[facility] [address] [place], [place] [address]Dr. Sol rFiend Nitrite Ql (U) Negative Normal NEGATIVE [facility] Comment on above: Performed By: #### MILAN PULLIAM ####[facility] Puixjyfnlo[address] [place], [place] [address]Dr. Sol Friend pH (U) 7.0 [pH] Normal 5-9 [facility] Comment on above: Performed By: #### MILAN PULLIAM ####[facility] Uofolylwtf[address] [place], [place] [address]Dr. Sol Friend SPEC GRAVITY <=1.005 Abnormal 1.005-<=1.025 [facility] Comment on above: Performed By: #### MILAN PULLIAM ####[facility] Zcydxbihud[address] [place], [place] [address]Dr. Sol Friend UA PROTEIN Negative Normal NEGATIVE/ TRACE [facility] Comment on above: Performed By: #### MILAN PULLIAM ####[facility] Dcspkbzktw[address] [place], [place] [address]Dr. Sol Friend UR MICRO IND INDICATED Normal [facility] Comment on above: Performed By: #### MILAN PULLIAM ####[facility] Lfhrieecuy[address] [place] [address]Dr. Sol Friend Urobilinogen Qn (U) 0.2 {Darrick'U}/dL Normal 0.2 - 1. 0 [facility] Comment on above: Performed By: #### MILAN PULLIAM ####[facility] Tutybnegdn[address] [place] [address]Dr. Sol Friend URINE MICROSCOPIC ONLYon BACTERIA NONE SEEN Normal NONE SEEN [facility] Comment on above: Performed By: #### MILAN PULLIAM ####[facility] Uhzxonxnyz[address] [place] [address]Dr. Sol Friend Bacteria identified Cx Nom (U) CX ALREADY ORDERED Normal [facility] Comment on above: Performed By: #### MILAN PULLIAM ####[facility] Kvgxriyhkp[address] [place] [address]Dr. Sol Friend CAST NONE SEEN Normal NONE SEEN [facility] Comment on above: Performed By: #### MILAN PULLIAM ####[facility] Depuqzoqbe[address] [place] [address]Dr. Sol Friend Crystals LM Nom (Urine sed) NONE SEEN Normal NONE SEEN [facility] Comment on above: Performed By: #### MILAN PULLIAM ####[facility] [address]fuczmann[address] [place] [address]Dr. Sol Friend Epithelial cells LM Ql (Urine sed) RARE Normal NONE SEEN /RARE [facility] Comment on above: Performed By: #### MILAN PULLIAM ####[facility] Tlrpitxzsr[address] [place] [address]Dr. Sol Friend MUCOUS NONE SEEN Normal NONE SEEN [facility] Comment on above: Performed By: #### IMLAN PULLIAM ####[facility] [address]nahqzlzus[address] [place] [address]Dr. Sol Friend RBC 2-5 Abnormal 0-2 [facility] Comment on above: Performed By: #### U MILAN HINTON ####[facility] Nulneqkwke[address] [place] [address]DrCarmen Friend WBC NONE SEEN Normal NONE SEEN [facility] Comment on above: Performed By: #### U MILAN HINTON ####[facility] [address]rkeogre[address] [place] [address]Dr. Sol Friend CULTURE URINEon 05-22-2022 CULTURE URINE [...] Trimethoprim/Sulfameth oxazole <=20 S F Normal [facility] Comment on above: Performed By: #### U RCX ####[facility] [address]pblgtksla[address] [place] [address]Dr. Sol Friend UA RANDOMon 05-20-2022 Bilirubin Ql (U) Negative Normal NEGATIVE [facility] Comment on above: Performed By: #### U A #### [facility] [address] [place] [address] Dr. Sol Friend Clarity (U) CLEAR Normal CLEAR [facility] Comment on above: Performed By: #### U A #### [facility] [address] [place] [address] Dr. Sol Friend Color (U) LT. YELLOW Normal YELLOW [facility] Comment on above: Performed By: #### U A #### [facility] [address] [place] [address] Dr. Sol Friend Glucose Ql (U) Negative Normal NEGATIVE [facility] Comment on above: Performed By: #### U A #### [facility] [address] [place] [address] Dr. Sol Friend Hemoglobin Ql (U) Negative Normal NEGATIVE [facility] Comment on above: Performed By: #### U A #### [facility] [address] [place] [address] Dr. Sol Friend Ketones Ql (U) Negative Normal NEGATIVE [facility] Comment on above: Performed By: #### U A #### [facility] [address] [place] [address] Dr. Sol Friend LEUKOCYTES Negative Normal NEGATIVE [facility] Comment on above: Performed By: #### U A #### [facility] [address] [place] [address] Dr. Sol Friend Nitrite Ql (U) Positive Abnormal NEGATIVE [facility] Comment on above: Performed By: #### U A #### [facility] [address] [place] [address] Dr. Sol Friend pH (U) 6.5 [pH] Normal 5-9 [facility] Comment on above: Performed By: #### U A #### [facility] [address] [place] [address] Dr. Sol Friend SPEC GRAVITY <=1.005 Abnormal 1.005-<=1.025 [facility] Comment on above: Performed By: #### U A #### [facility] [address] [place] [address] Dr. Sol Friend UA PROTEIN Negative Normal NEGATIVE/ TRACE [facility] Comment on above: Performed By: #### U A #### [facility] [address] [place] [address] Dr. Sol Friend Urobilinogen Qn (U) 0.2 {Darrick'U}/dL Normal 0.2 - 1. 0 [facility] Comment on above: Performed By: #### U A #### [facility] [address] [place] [address] Dr. Sol Friend MG MAMM SCREEN 3D CALOS CADon 05-16-2022 MG MAMM SCREEN 3D CALOS CAD Patient: GIA RUIZ Exam Date: 05/16/2022 : 1950 Gender:F Ordering : DR ROBERT FERREIRA . Admission #: [id number] Family : Order #: [id number] CLICK HERE TO VIEW EXAM RADIOLOGY REPORT [...] prostate cancer at age 71. LOCATION: [facility] BREAST COMPOSITION: Almost entirely fatty. FINDINGS: [...] MD on 05/16/2022 at 11:44 Normal [facility] Automated erythrocytes count in urine sediment (number/area)Ordered By: Adriana Cárdenas on 05-05-2022 RBC Auto (Urine sed) [#/Area] 0-1 [HPF] 0-4 [facility] Automated leukocytes count i n urine sediment (number/area)Ordered By: Adriana Cárdenas on 05-05-2022 WBC Auto (Urine sed) [#/Area] Innumerable [HPF] 0-4 [facility] Basophils Auto (Bld) [#/Vol] Ordered By: Adriana Cárdenas on 05-05-2022 Basophils (Bld) [#/Vol] 0.1 10*3/uL 0.0-0.2 [facility] Basophils/100 WBC Auto (Bld) Ordered By: Adriana Cárdenas on 05-05-2022 Basophils/100 WBC (Bld) 1.1 % . [facility] Bilirubin Test strip Ql (U)O rdered By: Adriana Cárdenas on 05-05-2022 Bilirubin Ql (U) Negative Negative [facility] Color Auto (U)Ordered By: Darien Cárdenas on 05-05-2022 Color (U) Yellow Yellow [facility] Creatinine and Glomerular fi ltration rate.predicted panel (S/P/Bld)Ordered By: Adriana Cárdenas on 05-05-2022 Creatinine [Mass/Vol] 0.71 mg/dL 0.44-1.03 [facility] Eosinophils Auto (Bld) [#/Vo l]Ordered By: Adriana Cárdenas on 05-05-2022 Eosinophils (Bld) [#/Vol] 0.2 10*3/uL 0.0-0.45 [facility] Eosinophils/100 WBC Auto (Bl d)Ordered By: Adriana Cárdenas on 05-05-2022 Eosinophils/100 WBC (Bld) 3.1 % . [facility] Erythrocyte distribution wid th Auto (RBC) [Ratio]Ordered By: Adriana Cárdenas on 05-05-2022 Erythrocyte distribution width (RBC) [Ratio] 13.8 % 11.9-15.3 [facility] Estimated glomerular filtrat ion rate (GFR) non- AmericanOrdered By: Adriana Cárdenas on 05-05-2022 GFR/1.73 sq M.predicted among non-blacks MDRD (S/P/Bld) [Vol rate/Area] > 60 mL/Min [facility] Glucose mean value [Mass/vol ume] in Blood Estimated from glycated hemoglobinOrdered By: Adriana Cárdenas on 05-05-2022 Average glucose Estimated from glycated hemoglobin (Bld) [Mass/Vol] 120 mg/dL [facility] Hematocrit Auto (Bld) [Volum e fraction]Ordered By: Adriana Cárdenas on 05-05-2022 Hematocrit (Bld) [Volume fraction] 37.1 % 34.0-46.4 [facility] Hemoglobin A1c percentageOrd ered By: Adriana Cárdenas on 05-05-2022 HbA1c (Bld) [Mass fraction] 5.8 % 4.3-5.6 [facility] Comment on above: Increased risk for d iabetes: 5.7 - 6.4diabetes: >6.4glycemic control for adults with diabetes: <7.0 Hemoglobin [Mass/volume] in BloodOrdered By: Adriana Cárdenas on 05-05-2022 Hemoglobin (Bld) [Mass/Vol] 12.3 g/dL 11.8-15.4 [facility] Ketones Auto test strip (U) [Mass/Vol]Ordered By: Adriana Cárdenas on 05-05-2022 Ketones (U) [Mass/Vol] Negative Negative [facility] Laboratory - UrinalysisOrder ed By: Adriana Cárdenas on 05-05-2022 Hyaline casts LM Ql (Urine sed) 0-8 [LPF] 0-8 [facility] Leukocytes [#/volume] correc lisa for nucleated erythrocytes in Blood by Automated counOrdered By: Adriana Cárdenas on 05-05-2022 WBC corrected for nucl RBC Auto (Bld) [#/Vol] 7.8 10*3/uL 3.8-11.6 [facility] Lymphocytes Auto (Bld) [#/Vo l]Ordered By: Adriana Cárdenas on 05-05-2022 Lymphocytes (Bld) [#/Vol] 2.7 10*3/uL 1.00-4.8 [facility] Lymphocytes/100 WBC Auto (Bl d)Ordered By: Adriana Cárdenas on 05-05-2022 Lymphocytes/100 WBC (Bld) 34.2 % . [facility] MCH Auto (RBC) [Entitic mass ]Ordered By: Adriana Cárdenas on 05-05-2022 MCH (RBC) [Entitic mass] 28.8 pg 24.7-34.3 [facility] MCHC Auto (RBC) [Mass/Vol]Or dered By: Adriana Cárdenas on 05-05-2022 MCHC (RBC) [Mass/Vol] 33.2 g/dL 32.0-35.0 [facility] MCV Auto (RBC) [Entitic vol] Ordered By: Adriana Cárdenas on 05-05-2022 MCV (RBC) [Entitic vol] 86.5 fL 80-100 [facility] Monocytes Auto (Bld) [#/Vol] Ordered By: Adriana Cárdenas on 05-05-2022 Monocytes (Bld) [#/Vol] 0.8 10*3/uL 0.0-0.8 [facility] Monocytes/100 WBC Auto (Bld) Ordered By: Adriana Cárdenas on 05-05-2022 Monocytes/100 WBC (Bld) 9.9 % . [facility] Neutrophils Auto (Bld) [#/Vo l]Ordered By: Adriana Cárdenas on 05-05-2022 Neutrophils (Bld) [#/Vol] 4.0 10*3/uL 1.8-7.7 [facility] Neutrophils/100 WBC Auto (Bl d)Ordered By: Adriana Cárdenas on 05-05-2022 Neutrophils/100 WBC (Bld) 51.7 % . [facility] Nitrite Test strip Ql (U)Ord ered By: Adriana Cárdenas on 05-05-2022 Nitrite Ql (U) Positive Negative [facility] No Panel InformationOrdered By: Adriana Cárdenas on 05-05-2022 Estimated GFR () > 60 mL/Min [facility] Comment on above: GFR estimated refere nce range: According to KDOQI guidelines, <60 ml/min/1.73m2 is sufficient to diagnose a patient with chronic kidney disease. Pharmacy Creatinine Clearance (Chem N/A [facility] Nucleated erythrocytes [Pres ence] in Blood by Automated countOrdered By: Adriana Cárdenas on 05-05-2022 Nucleated RBC Auto Ql (Bld) 0.1 /100{WBC} 0-0.5 [facility] Platelet mean volume Auto (B ld) [Entitic vol]Ordered By: Adriana Cárdenas on 05-05-2022 Platelet mean volume (Bld) [Entitic vol] 6.7 fL 6.3-10.7 [facility] Platelets Auto (Bld) [#/Vol] Ordered By: Adriana Cárdenas on 05-05-2022 Platelets (Bld) [#/Vol] 308 10*3/uL 150-450 [facility] Protein Auto test strip (U) [Mass/Vol]Ordered By: Adriana Cárdenas on 05-05-2022 Protein (U) [Mass/Vol] Negative Negative [facility] RBC Auto (Bld) [#/Vol]Ordere d By: Adriana Cárdenas on 05-05-2022 RBC (Bld) [#/Vol] 4.29 10*6/uL 3.60-5.00 [facility] Serum or plasma anion gap de terminationOrdered By: Adriana Cárdenas on 05-05-2022 Anion gap [Moles/Vol] 11.9 mmol/L 6.0-15.0 [facility] Serum or plasma calcium loretta urement (mass/volume)Ordered By: Adriana Cárdenas on 05-05-2022 Calcium [Mass/Vol] 9.1 mg/dL 8.2-10.2 [facility] Serum or plasma chloride roseanne surement (moles/volume)Ordered By: Adriana Cárdenas on 05-05-2022 Chloride [Moles/Vol] 100 mmol/L 95-114 [facility] Serum or plasma glucose loretta urement (mass/volume)Ordered By: Adriana Cárdenas on 05-05-2022 Glucose [Mass/Vol] 88 mg/dL 70-100 [facility] Comment on above: ADA recommended refe rence rangeRandom Glucose Reference Range is dependent on time and content of last meal. Glucose of more than 200 mg/dL in a nonstressed, ambulatory subject supports the diagnosis of Diabetes Mellitus. Serum or plasma potassium me asurement (moles/volume)Ordered By: Adriana Cárdenas on 05-05-2022 Potassium [Moles/Vol] 3.9 mmol/L 3.5-5.1 [facility] Serum or plasma sodium measu rement (moles/volume)Ordered By: Adriana Cárdenas on 05-05-2022 Sodium [Moles/Vol] 132 mmol/L 136-146 [facility] Serum or plasma total carbon dioxide measurement (moles/volume)Ordered By: Adriana Cárdenas on 05-05-2022 CO2 [Moles/Vol] 24.0 mmol/L 22.0-30.0 [facility] Serum or plasma urea nitroge n measurement (mass/volume)Ordered By: Adriana Cárdenas on 05-05-2022 Urea nitrogen [Mass/Vol] 18 mg/dL 9-23 [facility] Specific gravity Auto test s trip (U) [Rel density]Ordered By: Adriana Cárdenas on 05-05-2022 Specific gravity (U) [Rel density] 1.008 1.001-1.030 [facility] Squamous epithelial cells de tection in urine sediment by light microscopyOrdered By: Adriana Cárdenas on 05-05-2022 Epithelial cells.squamous LM Ql (Urine sed) None seen [HPF] 0-2 [facility] Urine bacteria detection by automated methodOrdered By: Adriana Cárdenas on 05-05-2022 Bacteria Auto Ql (U) None seen None Seen [facility] Urine clarity by refractomet ry automatedOrdered By: Adriana Cárdenas on 05-05-2022 Clarity Refractometry automated (U) Cloudy Clear [facility] Urine glucose measurement by automated test strip (mass/volume)Ordered By: Adriana Cárdenas on 05-05-2022 Glucose Auto test strip (U) [Mass/Vol] Normal mg/dL Normal [facility] Urine hemoglobin detection b y automated test stripOrdered By: Adriana Cárdenas on 05-05-2022 Hemoglobin Auto test strip Ql (U) Negative Negative [facility] Urine leukocyte esterase det ection by automated test stripOrdered By: Adriana Cárdenas on 05-05-2022 Leukocyte esterase Auto test strip Ql (U) 4+ Negative [facility] Urobilinogen Auto test strip (U) [Mass/Vol]Ordered By: Adriana Cárdenas on 05-05-2022 Urobilinogen (U) [Mass/Vol] Normal mg/dL Normal [facility] WBC Auto (Bld) [#/Vol]Ordere d By: Adriana Cárdenas on 05-05-2022 WBC (Bld) [#/Vol] 7.8 10*3/uL 3.8-11.6 [facility] pH Auto test strip (U)Ordere d By: Adriana Cárdenas on 05-05-2022 pH (U) 6.5 [pH] 5.0-9.0 [facility] ALBUMINon 01-10-2022 Albumin [Mass/Vol] 3.4 g/dL Normal 3.4-5.0 [facility] Comment on above: Performed By: #### A LB, BMP #### [facility] [address] [place] [address] Dr. Sol Friend CBC AUTO DIFFon 01-10-2022 BASO # 0.1 103/ul Normal 0.0-0.1 [facility] Comment on above: Performed By: #### C BC ####[facility] [address]ma[address] [place] [address]DrCramen Friend Basophils/100 WBC (Bld) 1.0 % Normal 0.2-2.0 [facility] Comment on above: Performed By: #### C BC ####[facility] [address] [place], [place] [address]DrCarmen Friend EO # 0.3 103/ul Normal 0.0-0.7 [facility] Comment on above: Performed By: #### C BC ####[facility] Ynxdovwz[address] [place], [place] [address]DrCarmen Friend Eosinophils/100 WBC (Bld) 3.9 % Normal 0.9-7.0 [facility] Comment on above: Performed By: #### C BC ####[facility] Oicsnygqlc[address] [place], [place] [address]DrCarmen Friend Erythrocyte distribution width (RBC) [Ratio] 13.1 % Normal 11.0-15.0 [facility] Comment on above: Performed By: #### C BC ####[facility] Ggdvtrmmqw[address] [place], [place] [address]DrCarmen Friend Hematocrit (Bld) [Volume fraction] 38.6 % Normal 36.0-48.0 [facility] Comment on above: Performed By: #### C BC ####[facility] Vxyvdyojnv[address] [place], [place] [address]Dr. Sol Friend Hemoglobin (Bld) [Mass/Vol] 12.7 g/dL Normal 12.0-16.0 [facility] Comment on above: Performed By: #### C BC ####[facility] S[address]sc[address] [place], [place] [address]DrCarmen Friend IG # 0.02 10e3/ul Normal 0.00-0.03 [facility] Comment on above: Performed By: #### C BC ####[facility] [address]cmnlhjzpt[address] [place] [id number]. Shakilajackie Friend IG % 0.3 % Normal 0.0-0.5 [facility] Comment on above: Performed By: #### C BC ####[facility] [address]ws[address] [place] [address]Dr. Sol Friend LYMPH # 2.7 103/ul Normal 1.2-3.8 [facility] Comment on above: Performed By: #### C BC ####[facility] Et[address]ivejb[address] [place] [address]Dr. Shakilajackie Friend Lymphocytes/100 WBC (Bld) 34.1 % Normal 20.5-60.0 [facility] Comment on above: Performed By: #### C BC ####[facility] [address]iqreludhe[address] [place] [address]Dr. Sol Friend MANUAL DIFF REQ NO Normal [facility] Comment on above: Performed By: #### C BC ####[facility] Axwkfufedj[address] [place] [address]Dr. Sol Phuc MCH (RBC) [Entitic mass] 29.5 pg Normal 26.7-34.0 [facility] Comment on above: Performed By: #### C BC ####[facility] Uquqmrlqyf[address] [place], [place] [address]Dr. Sol Phuc MCHC (RBC) [Mass/Vol] 32.9 g/dL Normal 29.9-35.2 [facility] Comment on above: Performed By: #### C BC ####[facility] [address] [place] [address]Dr. Shakilajackie Friend MCV (RBC) [Entitic vol] 89.6 fL Normal 81.0-99.0 [facility] Comment on above: Performed By: #### C BC ####[facility] Susxkancrv[address] [place], [place] [address]Dr. Sol Friend MONO # 0.8 103/ul Normal 0.3-0.8 [facility] Comment on above: Performed By: #### C BC ####[facility] [address]ipqbzpr[address] [place], [place] [address]Dr. Sol Friend Monocytes/100 WBC (Bld) 10.3 % Normal 1.7-12.0 [facility] Comment on above: Performed By: #### C BC ####[facility] [address] [place] [address]Dr. Sol Friend NEUT # 4.0 103/ul Normal 1.4-6.5 [facility] Comment on above: Performed By: #### C BC ####[facility] [address]ufi[address] [place] [address]Dr. Sol Friend Neutrophils/100 WBC (Bld) 50.4 % Normal 43.0-75.0 [facility] Comment on above: Performed By: #### C BC ####[facility] [address]xykbslw[address] [place] [address]Dr. Sol Friend Platelet mean volume (Bld) [Entitic vol] 8.7 fL Critically low 9.5-13.5 [facility] Comment on above: Performed By: #### C BC ####[facility] Qrwdkwdqgi[address] [place] [address]Dr. Sol Friend PLT 285 103/ul Normal 150-450 [facility] Comment on above: Performed By: #### C BC ####[facility] [address]stmogsgyf[address] [place], [place] [address]Dr. Sol Friend RBC 4.31 106/ul Normal 4.20-5.40 [facility] Comment on above: Performed By: #### C BC ####[facility] Ucmzojcsth[address] [place], [place] [address]Dr. Sol Friend WBC 7.9 103/ul Normal 4.0-11.0 [facility] Comment on above: Performed By: #### C BC ####[facility] Xabsaqzbsc[address] [place], [place] [address]Dr. Sol Friend MRSA NARES #1on 01-10-2022 MRSA NARES #1 Culture Observations : NO GROWTH OF MRSA AT 48 HOURS Normal [facility] Comment on above: Performed By: #### M RSAN1 ####[facility] Qhuszkywns[address] [place], [place] [address]Dr. Sol Friend PROF CHEM 8 (BAS METB)on Anion gap [Moles/Vol] 12.9 mmol/L Normal Th [facility] Comment on above: Performed By: #### A LB, BMP #### [facility] [address] [address] [address] Sol Friend Calcium [Mass/Vol] 8.8 mg/dL Normal 8.5-10.1 [facility] Comment on above: Performed By: #### A LB, BMP #### [facility] [address] [address] [address] Sol Friend Chloride [Moles/Vol] 93 mmol/L Critically low 98-107 [facility] Comment on above: Performed By: #### A LB, BMP #### [facility] [address] [place] [address] Dr. Sol Friend CO2 [Moles/Vol] 26.6 mmol/L Normal 21.0-32.0 [facility] Comment on above: Performed By: #### A LB, BMP #### [facility] [address] [place] [address] Dr. Sol Friend Creatinine [Mass/Vol] 0.75 mg/dL Normal 0.55-1.02 [facility] Comment on above: Performed By: #### A LB, BMP #### [facility] [address] [place] [address] Dr. Sol Friend EGFR-AF VINCENTIAN >60 Normal >=60 [facility] Comment on above: Performed By: #### A LB, BMP #### [facility] [address] [place] [address] Dr. Sol Friend EGFR-NON AF VINCENTIAN >60 Normal >=60 [facility] Comment on above: Performed By: #### A LB, BMP #### [facility] [address] [place] [address] Dr. Sol Friend Glucose [Mass/Vol] 87 mg/dL Normal 74-106 [facility] Comment on above: Performed By: #### A LB, BMP #### [facility] [address] [place] [address] Dr. Sol Friend Potassium [Moles/Vol] 3.5 mmol/L Normal 3.5-5.1 [facility] Comment on above: Performed By: #### A LB, BMP #### [facility] [address] [place] [address] Dr. Sol Friend Sodium [Moles/Vol] 129 mmol/L Critically low 136-145 Th [facility] Comment on above: Performed By: #### A LB, BMP #### [facility] [address] [place] [address] Dr. Sol Friend Urea nitrogen [Mass/Vol] 17.0 mg/dL Normal 7.0-18.0 [facility] Comment on above: Performed By: #### A LB, BMP #### [facility] [address] [place] [address] Dr. Sol Firend Urea nitrogen/Creatinine [Mass ratio] 22.7 mg/mg Normal [facility] Comment on above: Performed By: #### A LB, BMP #### [facility] [address] [place] [address] Dr. Sol Friend FREE T3on 10-03-2021 FREE T3 3.95 pg/mlL Normal 2.18-3.98 [facility] Comment on above: Performed By: #### T SH, FT3 #### [facility] [address] [place] [address] Dr. Sol Friend TSHon 10-03-2021 TSH 1.122 uIU/mL Normal 0.358-3.740 [facility] Comment on above: Performed By: #### T SH, FT3 #### [facility] [address] [place] [address] Dr. Sol Friend TSH RANGE SEE BELOW Normal [facility] Comment on above: Result Comment: <0.3 4 UIU/ml HYPERTHYROID 0.34-5.60 UIU/ml EUTHYROID >5.60 UIU/ml HYPOTHYROID Performed By: #### T SH, FT3 #### [facility] [address] [place] [address] Dr. Sol Friend Vital Signs Date Time Vital Sign Value Performing Clinician Facility 10-12-2024 15:40-0400 Body height 157.5 cm oLry ISAAC Work Phone: [facility] 10-12-2024 15:40-0400 Body mass index (BMI) [Ratio] 35.3 kg/m2 Lory Busch PA Work Phone: [facility] 10-12-2024 15:40-0400 Body weight 87.54 kg Lory Busch PA Work Phone: [facility] 10-12-2024 15:40-0400 Diastolic blood pressure 82 mm[Hg] Lory Busch PA Work Phone: [facility] 10-12-2024 15:40-0400 Heart rate 74 /min Lory Busch PA Work Phone: [facility] 10-12-2024 15:40-0400 Respiratory rate 16 /min Lory Busch PA Work Phone: [facility] 10-12-2024 15:40-0400 SaO2% (BldA) [Mass fraction] 98 % Lory Busch PA Work Phone: [facility] 10-12-2024 15:40-0400 Systolic blood pressure 124 mm[Hg] Lory Busch PA Work Phone: [facility] 08-22-2024 13:26-0400 Body mass index (BMI) [Ratio] 35.03 kg/m2 Robert Jhon DO Work Phone: [facility] 08-22-2024 13:26-0400 Body weight 86.86 kg Robert Jhon DO Work Phone: [facility] 08-22-2024 13:26-0400 Diastolic blood pressure 76 mm[Hg] Robert Jhon DO Work Phone: [facility] 08-22-2024 13:26-0400 Systolic blood pressure 132 mm[Hg] Robert Jhon DO Work Phone: [facility] 08-15-2024 10:58-0400 Body height 154.94 cm [facility] 08-15-2024 10:58-0400 Body mass index (BMI) [Ratio] 35.3 kg/m2 [facility] 08-15-2024 10:58-0400 Body weight 84.82 kg [facility] 08-15-2024 10:58-0400 Diastolic blood pressure 76 mm[Hg] [facility] 08-15-2024 10:58-0400 Heart rate 75 /min [facility] 08-15-2024 10:58-0400 Systolic blood pressure 122 mm[Hg] [facility] 07-20-2024 13:31-0500 Body height 157.5 cm Kevin Murcek DO Work Phone: [facility] 07-20-2024 13:31-0500 Body mass index (BMI) [Ratio] 33.84 kg/m2 Kevin Murcek DO Work Phone: [facility] 07-20-2024 13:31-0500 Body weight 83.92 kg Kevin Murcek DO Work Phone: [facility] 06-21-2024 09:29-0500 Body height 157.5 cm Kevin Murcek DO Work Phone: [facility] 06-21-2024 09:29-0500 Body mass index (BMI) [Ratio] 33.84 kg/m2 Kevin Murcek DO Work Phone: [facility] 06-21-2024 09:29-0500 Body weight 83.92 kg Kevin Murcek DO Work Phone: [facility] 06-13-2024 12:39-0500 Body height 157.5 cm Kevin Murcek DO Work Phone: [facility] 06-13-2024 12:39-0500 Body mass index (BMI) [Ratio] 33.84 kg/m2 Kevin Murcek DO Work Phone: [facility] 06-13-2024 12:39-0500 Body weight 83.92 kg Kevin Murcek DO Work Phone: [facility] 06-09-2024 14:32-0500 Diastolic blood pressure 80 mm[Hg] Aamir James MD Work Phone: [facility] 06-09-2024 14:32-0500 Systolic blood pressure 130 mm[Hg] Aamir James MD Work Phone: [facility] 06-07-2024 11:20-0500 Body height 157.5 cm Flores Lowe PA Work Phone: [facility] 06-07-2024 11:20-0500 Body mass index (BMI) [Ratio] 34.93 kg/m2 Flores Lowe PA Work Phone: [facility] 06-07-2024 11:20-0500 Body weight 86.64 kg Flores Lowe PA Work Phone: [facility] 06-07-2024 11:20-0500 Diastolic blood pressure 82 mm[Hg] Flores Lowe PA Work Phone: [facility] 06-07-2024 11:20-0500 Heart rate 71 /min Flores Lowe PA Work Phone: [facility] 06-07-2024 11:20-0500 Respiratory rate 16 /min Flores Lowe PA Work Phone: [facility] 06-07-2024 11:20-0500 SaO2% (BldA) [Mass fraction] 98 % Flores Lowe PA Work Phone: [facility] 06-07-2024 11:20-0500 Systolic blood pressure 124 mm[Hg] Flores Lowe PA Work Phone: [facility] 02-18-2024 12:45-0400 Blood Pressure Location MICAH LOVELL [facility] 02-18-2024 12:45-0400 Body temperature 98.6 [degF] MICAH LOVELL [facility] 02-18-2024 12:45-0400 Diastolic blood pressure 85 mm[Hg] MICAH LOVELL [facility] 02-18-2024 12:45-0400 Heart rate 68 /min MICAH NAS [facility] 02-18-2024 12:45-0400 Respiratory rate 16 /min MICAH MOROCHORY [facility] 02-18-2024 12:45-0400 Systolic blood pressure 135 mm[Hg] MICAH NAS [facility] 08-17-2023 11:21-0400 Blood Pressure Location Bertha BLAND [facility] 08-17-2023 11:21-0400 Body temperature 98.42 [degF] Berthaeleazar BLAND [facility] 08-17-2023 11:21-0400 Diastolic blood pressure 87 mm[Hg] Bertha BLAND [facility] 08-17-2023 11:21-0400 Heart rate 78 /min Bertha BLAND [facility] 08-17-2023 11:21-0400 Respiratory rate 16 /min Bertha BLAND [facility] 08-17-2023 11:21-0400 Systolic blood pressure 131 mm[Hg] Bertha BLAND [facility] 08-13-2023 14:44-0400 Body height 154.94 cm [facility] 08-13-2023 14:44-0400 Body mass index (BMI) [Ratio] 40 kg/m2 [facility] 08-13-2023 14:44-0400 Body weight 96.16 kg [facility] 08-13-2023 14:44-0400 Diastolic blood pressure 89 mm[Hg] [facility] 08-13-2023 14:44-0400 Heart rate 67 /min [facility] 08-13-2023 14:44-0400 Systolic blood pressure 162 mm[Hg] [facility] 03-31-2023 13:47-0500 Diastolic blood pressure 88 mm[Hg] CAMBERING MACHINE OPERATOR-C Bambi Nam Work Phone: [facility] 03-31-2023 13:47-0500 Heart rate 82 /min CAMBERING MACHINE OPERATOR-C Bambi Nam Work Phone: [facility] 03-31-2023 13:47-0500 Respiratory rate 16 /min CAMBERING MACHINE OPERATOR-C Bambi Nam Work Phone: [facility] 03-31-2023 13:47-0500 SaO2% (BldA) [Mass fraction] 97 % CAMBERING MACHINE OPERATOR-C Bambi Nam Work Phone: [facility] 03-31-2023 13:47-0500 Systolic blood pressure 140 mm[Hg] CAMBERING MACHINE OPERATOR-C Bambi Nam Work Phone: [facility] 03-31-2023 12:01-0500 Body height 154.94 cm CAMBERING MACHINE OPERATOR-C Bambi Nam Work Phone: [facility] 03-31-2023 12:01-0500 Body temperature 97.7 [degF] CAMBERING MACHINE OPERATOR-C Bambi Nam Work Phone: [facility] 03-31-2023 12:01-0500 Body weight 92.07 kg CAMBERING MACHINE OPERATOR-C Bambi Nam Work Phone: [facility] 03-12-2023 10:30-0400 Diastolic blood pressure 71 mm[Hg] CAMBERING MACHINE OPERATOR-C Bambi Nam Work Phone: [facility] 03-12-2023 10:30-0400 Heart rate 80 /min CAMBERING MACHINE OPERATOR-C Bambi Nam Work Phone: [facility] 03-12-2023 10:30-0400 Respiratory rate 16 /min CAMBERING MACHINE OPERATOR-C Bambi Nam Work Phone: [facility] 03-12-2023 10:30-0400 SaO2% (BldA) [Mass fraction] 100 % CAMBERING MACHINE OPERATOR-C Bambi Nam Work Phone: [facility] 03-12-2023 10:30-0400 Systolic blood pressure 136 mm[Hg] CAMBERING MACHINE OPERATOR-C Bambi Nam Work Phone: [facility] 03-12-2023 08:37-0400 Body height 157.48 cm CAMBERING MACHINE OPERATOR-C Bambi Nam Work Phone: [facility] 03-12-2023 08:37-0400 Body temperature 97.6 [degF] CAMBERING MACHINE OPERATOR-C Bambi Nam Work Phone: [facility] 03-12-2023 08:37-0400 Body weight 92.07 kg CAMBERING MACHINE OPERATOR-C Bambi Nam Work Phone: [facility] 02-13-2023 09:30-0400 Blood Pressure Location Bertha BLAND [facility] 02-13-2023 09:30-0400 Body temperature 97.88 [degF] Bertha BLAND [facility] 02-13-2023 09:30-0400 Diastolic blood pressure 82 mm[Hg] Bertha BLAND [facility] 02-13-2023 09:30-0400 Heart rate 78 /min Bertha BLAND [facility] 02-13-2023 09:30-0400 Systolic blood pressure 124 mm[Hg] Bertha BLNAD [facility] 07-24-2022 13:15-0500 Body height 157.48 cm Cesar Estrada Other [employer] Other 07-24-2022 13:15-0500 Body mass index (BMI) [Ratio] 37.31 kg/m2 Cesar Estrada Other [employer] Other 07-24-2022 13:15-0500 Body weight 92.53 kg Cesar Estrada Other [employer] Other 07-24-2022 13:15-0500 Diastolic blood pressure 76 mm[Hg] Cesar Estrada Other [employer] Other 07-24-2022 13:15-0500 Respiratory rate 20 /min Cesar Estrada Other [employer] Other 07-24-2022 13:15-0500 Systolic blood pressure 135 mm[Hg] Cesar Estrada Other [employer] Other 04-02-2021 14:00-0500 Body height 157.48 cm Dominick Hester Other [employer] Other 04-02-2021 14:00-0500 Body mass index (BMI) [Ratio] 33.47 kg/m2 Dominick Hester Other [employer] Other 04-02-2021 14:00-0500 Body weight 83.01 kg Dominick Hester Other [employer] Other Encounters Encounter Date Encounter Type Care Provider Facility Start: 05-16-2025 ambulatory [facility] Start: 02-24-2025 ambulatory Bertha Lemus ty:[facility] Start: 01-11-2025 End: 01-11-2025 Telephone encounter Adriana Han Cárdenas DO Work Phone: [facility] Comment on above: DENTAL APPT Start: 11-29-2024 End: 11-29-2024 Bamboo flowsheet Kateryna Chávez MD Work Phone: [facility] Start: 11-29-2024 End: 11-29-2024 Bamboo flowsheet Kateryna Chávez MD Work Phone: [facility] Start: 11-29-2024 End: 11-29-2024 Office outpatient visit 25 minutes Kateryna Chávez MD Work Phone: [facility] Comment on above: Melanocytic nevus of trunk (Primary Dx); Seborrheic keratosis; History of basal cell carcinoma; Androgenic alopecia Start: 11-29-2024 End: 11-29-2024 ambulatory KATERYNA CHÁVEZ Not Available Start: 10-27-2024 End: 10-27-2024 Bamboo flowsheet Rosalinda ISAAC Work Phone: [facility] Start: 10-27-2024 End: 10-27-2024 Bamboo flowsheet Rosalinda ISAAC Work Phone: [facility] Start: 10-27-2024 End: 10-27-2024 Office outpatient visit 15 minutes Rosalinda ISAAC Work Phone: [facility] Comment on above: S/P total knee arthr oplasty, left (Primary Dx); S/P TKR (total knee replacement), right; Right knee pain, unspecified chronicity; Left knee pain, unspecified chronicity; Gait disturbance, post-stroke Start: 10-27-2024 End: 10-27-2024 ambulatory ROSALINDA BERNSTEIN Not Available Start: 10-12-2024 End: 10-12-2024 Office outpatient visit 25 minutes Lory ISAAC Work Phone: [facility] Comment on above: Cerebrovascular acci dent (CVA), unspecified mechanism (CMS/HCC) (Primary Dx); Spasticity; Lumbosacral radiculopathy; Degeneration of intervertebral disc of lumbar region, unspecified whether pain present Start: 10-12-2024 End: 10-12-2024 ambulatory LORY BUSCH Not Available Start: 10-12-2024 End: 10-12-2024 Bamboo flowsheet Lory Busch PA Work Phone: [facility] Start: 10-12-2024 End: 10-12-2024 Bamboo flowsheet Lory Busch PA Work Phone: [facility] Start: 09-07-2024 End: 09-08-2024 External Result Encounter Rosalinda ISAAC Work Phone: [facility] Unsolicited Start: 09-07-2024 End: 09-08-2024 External Result Encounter Rosalinda ISAAC Work Phone: [facility] Unsolicited Start: 09-07-2024 End: 09-07-2024 Patient encounter procedure Mile Sanchez MD Work Phone: [facility] Work Phone: Start: 09-07-2024 End: 09-07-2024 ambulatory Mile Sanchez MD Work Phone: [facility] Work Phone: Start: 09-07-2024 Encounter for other preprocedural examination Rosalinda Bernstein [facility] Start: 08-29-2024 End: 08-29-2024 Clinisync Result Encounter Robert Jhon DO Work Phone: [facility] Unsolicited Start: 08-29-2024 End: 08-29-2024 Clinisync Result Encounter Robert Jhon DO Work Phone: [facility] Unsolicited Start: 08-29-2024 End: 08-29-2024 ambulatory Bambi Browning Facility:[facility] Start: 08-22-2024 End: 08-22-2024 Bamboo flowsheet Robert Jhon DO Work Phone: [facility] Start: 08-22-2024 End: 08-26-2024 Bamboo flowsheet Robert Jhon DO Work Phone: [facility] Start: 08-22-2024 End: 08-26-2024 Clinisync Result Encounter Robert Jhon DO Work Phone: [facility] Unsolicited Start: 08-22-2024 End: 08-22-2024 ambulatory ROBERT JHON Not Available Start: 08-22-2024 End: 08-22-2024 Patient encounter procedure Robert Jhon DO Work Phone: [facility] Comment on above: Well woman exam with routine gynecological exam; Encounter for screening mammogram for malignant neoplasm of breast Start: 08-15-2024 End: 08-15-2024 ambulatory [facility] Work Phone: Start: 08-15-2024 End: 08-15-2024 Patient encounter procedure [facility] Work Phone: Start: 07-20-2024 End: 07-20-2024 Bamboo flowsheet Kevin Aguilar DO Work Phone: [facility] Start: 07-20-2024 End: 07-20-2024 Bamboo flowsheet Kevin Aguilar DO Work Phone: [facility] Start: 07-20-2024 End: 07-20-2024 Office outpatient visit 15 minutes Kevin Aguilar DO Work Phone: [facility] Comment on above: Open wound of face, subsequent encounter (Primary Dx) Start: 07-20-2024 End: 07-20-2024 ambulatory KEVIN AGUILAR Not Available Start: 06-23-2024 End: 06-23-2024 Telephone encounter Rosalinda ISAAC Work Phone: [facility] Comment on above: Dentist Start: 06-21-2024 End: [...] encounter status Kevin Aguilar DO Work Phone: [facility] Start: 06-13-2024 End: 06-13-2024 ambulatory KEVIN AGUILAR Not Available Start: 06-12-2024 End: 06-12-2024 Preprocedural examination done Kevin Aguilar DO Work Phone: [facility] Start: 06-09-2024 End: 06-09-2024 Patient encounter procedure Aamir James MD Work Phone: [facility] Comment on above: 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) Start: 06-09-2024 End: 06-09-2024 ambulatory AAMIR JAMES Not Available Start: 06-07-2024 End: 06-07-2024 Bamboo flowsheet Flores Lowe PA Work Phone: [facility] Start: 06-07-2024 End: 06-07-2024 Bamboo flowsheet Flores Lowe PA Work Phone: [facility] Start: 06-07-2024 End: 06-07-2024 Office outpatient visit 25 minutes Flores Lowe PA Work Phone: [facility] Comment on above: Cerebrovascular acci dent (CVA), unspecified mechanism (CMS/HCC) (Primary Dx); Muscle spasm; Lumbosacral radiculopathy; Degeneration of intervertebral disc of lumbar region with discogenic back pain and lower extremity pain Start: 06-07-2024 End: 06-07-2024 ambulatory FLORES LOWE Not Available Start: 05-26-2024 End: 05-26-2024 Lab Drop off Bambi L Nam [facility] Start: 05-26-2024 End: 05-26-2024 ambulatory Bambi L Nam [facility] Start: 05-16-2024 End: 05-16-2024 ambulatory Bambi L Nam Facility:[facility] Lecanto alfreda Start: 04-12-2024 End: 04-12-2024 Bamboo flowsheet Kateryna Chávez MD Work Phone: [facility] Start: 04-12-2024 End: 04-12-2024 Bamboo flowsheet Kateryna Chávez MD Work Phone: [facility] Start: 04-12-2024 End: 04-12-2024 ambulatory KATERYNA CHÁVEZ Not Available Start: 04-12-2024 End: 04-12-2024 Office outpatient new 20 minutes Kateryna Chávez MD Work Phone: [facility] Comment on above: Melanocytic nevi of face (Primary Dx); Neoplasm of unspecified behavior of bone, soft tissue, and skin Start: 03-15-2024 End: 03-15-2024 ambulatory Bambi L Nam Facility:[facility] Rissa beverlye Start: 02-18-2024 End: 02-18-2024 ambulatory MICAH MOROCHORY Facility: [facility] Start: 02-18-2024 End: 02-18-2024 Patient encounter procedure MICAH LOVELL [facility] Start: 02-09-2024 End: 02-09-2024 ambulatory Bambi L Nam Facility:[facility] Rissa beverlye Start: 01-21-2024 End: 01-21-2024 Lab Drop off Bambi L Nam [facility] Start: 01-21-2024 End: 01-21-2024 ambulatory Bambi L Nam Facility[facility] Start: 12-28-2023 End: 12-28-2023 ambulatory ROSALINDA BERNSTEIN Not Available Start: 12-24-2023 End: 12-24-2023 ambulatory SAGE BRMARGARETH Not Available Start: 12-22-2023 End: 12-22-2023 ambulatory FLORES JOHNSTONClarence Not Available Start: 12-17-2023 End: 12-17-2023 ambulatory SULEMA ABHIJEET Not Available Start: 12-14-2023 End: 12-14-2023 ambulatory SAGE BRINK Not Available Start: 12-10-2023 End: 12-10-2023 ambulatory SAGE BRINK Not Available Start: 12-08-2023 End: 12-08-2023 ambulatory SAGE BRINK Not Available Start: 10-05-2023 End: 10-05-2023 ambulatory Bambi L Nam Facility:[facility] Rissa beverlye Start: 10-01-2023 End: 10-01-2023 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 Work Phone: [facility] Work Phone: Start: 10-01-2023 End: 10-01-2023 Patient encounter procedure CAMBERING MACHINE OPERATOR-C Bambi Nam Work Phone: [facility] [address] Work Phone: Start: 09-30-2023 End: 09-30-2023 Patient encounter procedure CAMBERING MACHINE OPERATOR-C Bambi Nam Work Phone: [facility] Work Phone: Start: 09-14-2023 End: 09-14-2023 ambulatory Bertha BLAND Facility:[facility] Start: 09-14-2023 End: 09-14-2023 Patient encounter procedure Bertha BLAND [facility] [place] Start: 08-26-2023 End: 08-26-2023 ambulatory Bambi L Nam Facility:[facility] Lecanto alfreda Start: 08-17-2023 End: 08-17-2023 ambulatory Bertha BLAND Facility:[facility] Start: 08-17-2023 End: 08-17-2023 Patient encounter procedure Bertha BLAND [facility] Start: 08-13-2023 End: 08-13-2023 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 Work Phone: [facility] Work Phone: Start: 08-13-2023 End: 08-13-2023 Patient encounter procedure [facility] Work Phone: Start: 05-13-2023 End: 05-13-2023 Lab Drop off Bambi L Nam [facility] Start: 04-16-2023 End: 04-16-2023 ambulatory Cesar Estrada Other [facility] [employer] Other Start: 04-16-2023 Telephone encounter Cesar Ruano [facility] Start: 04-01-2023 End: 04-01-2023 ambulatory Cesar Estrada Other [facility] [employer] Other Start: 04-01-2023 Telephone encounter Cesar Ruano [facility] Start: 03-31-2023 End: 03-31-2023 Admission to same day surgery center CAMBERING MACHINE OPERATOR-C Bambi Nam Work Phone: [facility] Work Phone: Start: 03-31-2023 End: 03-31-2023 ambulatory CAMBERING MACHINE OPERATOR-C Bambi Browning Work Phone: [facility] Work Phone: Start: 03-16-2023 End: 03-16-2023 ambulatory Cesar Estrada Other [facility] [employer] Other Start: 03-16-2023 Telephone encounter Cesar Ruano [facility] Start: 03-12-2023 End: 03-12-2023 Admission to same day surgery center CAMBERING MACHINE OPERATOR-C Bambi Nam Work Phone: [facility] Work Phone: Start: 03-12-2023 End: 03-12-2023 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 Work Phone: [facility] Work Phone: Start: 02-13-2023 End: 02-13-2023 Patient encounter procedure Bertha BLAND [facility] Start: 11-27-2022 End: 11-27-2022 ambulatory CAMBERING MACHINE OPERATOR-C Bambi Browning Work Phone: [facility] Work Phone: Start: 11-27-2022 End: 11-27-2022 Patient encounter procedure CAMBERING MACHINE OPERATOR-C Bambi Browning Work Phone: [facility] [address] Work Phone: Start: 11-24-2022 End: 11-24-2022 ambulatory CAMBERING MACHINE OPERATOR-C Bambi Browning Work Phone: [facility] Work Phone: Start: 11-24-2022 End: 11-24-2022 Patient encounter procedure CAMBERING MACHINE OPERATOR-C Bambi Nam Work Phone: [facility] Work Phone: Start: 10-17-2022 End: 10-17-2022 Lab Drop off MICAH LOVELL [facility] Start: 10-17-2022 End: 10-17-2022 Patient encounter procedure Bertha BLAND [facility] [place] Start: 09-23-2022 End: 09-23-2022 Lab Drop off Bertha BLAND [facility] Start: 09-22-2022 End: 09-22-2022 Patient encounter procedure Bertha BLAND [facility] [place] Start: 08-19-2022 End: 08-20-[address] ESTEFANÍA SUTHERLAND . Facility:[facility] Start: 08-11-2022 End: 08-11-[address] ESTEFANÍA SUTHERLAND . Facility:[facility] Start: 07-31-2022 End: 08-01-[address] ESTEFANÍA SUTHERLAND . Facility:[facility] Start: 07-29-2022 End: 07-29-2022 Patient encounter procedure Bertha BALND [facility] Start: 07-24-2022 End: 07-24-2022 ambulatory Cesar Estrada Other [facility] [employer] Other Start: 07-24-2022 Patient encounter procedure Cesar Natalie [facility] Start: 07-22-2022 End: 07-23-[address] BERTHA BLAND . Facility:[facility] Start: 07-14-2022 End: 07-14-2022 Lab Drop off Bertha BLAND [facility] Start: 06-12-2022 End: 06-13-[address] BERTHA BLAND . Facility:[facility] Start: 06-05-2022 End: 06-06-[address] ESTEFANÍA SUTHERLAND . Facility:[facility] Start: 05-19-2022 End: 05-20-2022 ambulatory MR ROSALINDA BERNSTEIN . Facility:[facility] Start: 05-16-2022 End: 05-17-[address] ROBERT FERREIRA . Facility:[facility] Start: 05-05-2022 End: 05-05-2022 ambulatory MD Estefanía Sutherland Work Phone: [facility] Work Phone: Start: 05-05-2022 End: 05-05-2022 Patient encounter procedure MD Estefanía Sutherland Work Phone: [facility] [address] Start: 05-05-2022 End: 05-05-2022 ambulatory MD Estefanía Sutherland Work Phone: [facility] Work Phone: Start: 05-05-2022 End: 05-05-2022 Patient encounter procedure MD Estefanía Sutherland Work Phone: [facility] Start: 01-29-2022 End: 09-14-[address] ESTEFANÍA SUTHERLAND . Facility:[facility]1 Start: 01-13-2022 Encounter for preprocedural cardiovascular examination DR ESTEFANÍA SUTHERLAND . [facility] Start: 01-13-2022 Encounter for preprocedural laboratory examination DR ESTEFANÍA SUTHERLAND . [facility] Start: 01-10-2022 End: 01-11-[address] ESTEFANÍA SUTHERLAND . Facility:[facility] Start: 01-10-2022 End: 01-11-2022 Encounter for preprocedural laboratory examination DR ESTEFANÍA SUTHERLAND . Facility:[facility] Start: 10-03-2021 End: 10-04-[address] ESTEFANÍA SUTHERLAND . Facility:[facility] Start: 09-17-2021 End: 09-17-2021 ambulatory Dominick Hester Other [facility] Other Start: 09-17-2021 Telephone encounter Dominick Hester [facility] Gastro[facility] Start: 04-02-2021 End: 04-02-2021 ambulatory Dominick Hester Other [facility] Other Start: 04-02-2021 Office outpatient vi sit 25 minutes Dominick Hester [facility] Gastroenterology Procedures Date Procedure Procedure Detail Performing Clinician Start: 10-27-2024 Radiologic examination knee 1/2 views Rosalinda ISAAC Work Phone: Start: 10-27-2024 Radiologic examination knee 1/2 views Rosalinda ISAAC Work Phone: Start: 09-07-2024 Hemoglobin glycosylated a1c Rosalinda ISAAC Work Phone: Start: 08-29-2024 MM TOMOSYNTHESIS SCREENING BI Robert Fazi o DO Work Phone: Start: 08-29-2024 Mammography Robert Jhon DO Work Phone: Start: 08-22-2024 IGP,APTIMA HPV,AGE GDLN Robert Jhon DO Work Phone: Start: 06-08-2024 [facility] Aamir James MD Work Phone: Start: 04-12-2024 SKIN / NAIL BIOPSY Kateryna Chávez MD Work Phone: Start: 10-01-2023 Plain X-ray of bilateral femurs [employer]BERING MACHINE OPERATOR-C Jod i Nam Work Phone: Start: 10-01-2023 Plain X-ray of bilateral tibia and bilateral fibula CAMBERING MACHINE OPERATOR-C Bambi Nam Work Phone: Start: 09-30-2023 Plain chest X-ray [employer]BERING MACHINE OPERATOR-C Bambi Nam Work Phone: Start: 08-28-2023 Mammography Kateryna Chávez MD Work Phone: Start: 03-31-2023 Esophagogastroduodenoscopy [employer]BERING MACHINE OPERATOR-C Bambi Maddy wab Work Phone: Start: 03-12-2023 Colonoscopy [employer]BERING MACHINE OPERATOR-C Bambi Nam Work Phone: Start: 11-27-2022 Plain X-ray of bilateral femurs CAMBERING MACHINE OPERATOR-C Jod i Nam Work Phone: Start: 11-27-2022 Plain X-ray of bilateral tibia and bilateral fibula CAMBERING MACHINE OPERATOR-C Bambi Nam Work Phone: Start: 05-05-2022 Plain X-ray of bilateral femurs MD Estefanía may Work Phone: Start: 05-05-2022 Plain X-ray of bilateral tibia and bilateral fibula MD Estefanía Sutherland Work Phone: Appendectomy Bertha BLAND Arthroscopy knee w/m eniscus rpr medial/lateral Bertha BLAND Arthroscopy of knee Bertha BLAND Cervical polypectomy Bertha BLAND Colonoscopy Bertha BLAND Cyst (disorder) Bambi Nam Comment on above: 1969 Cystoscopy Bertha BLAND Hysterectomy Bertha BLAND Case Bertha BLAND Plan of Treatment Date Care Activity Detail Author Start: 11-30-2025 End: 11-30-2025 Patient encounter procedure [facility] Start: 10-26-2025 End: 10-26-2025 Patient encounter procedure [facility] Start: 08-29-2025 Screening for malignant neoplasm of breast Mammogram [facility] Start: 01-16-2025 Influenza vaccination Influenza Vaccine (#1) [facility] Start: 12-13-2024 End: 12-13-2024 Patient encounter procedure 12/13/2024 11:05 AM EDT Office Visit [facility] [address] [place] [address] Kateryna Chávez MD [address] [place], [place] [id number] [facility] Start: 11-29-2024 End: 11-29-2024 Patient encounter procedure [facility] Comment on above: Arrived Start: 11-22-2024 End: 11-22-2024 Patient encounter procedure 11/22/2024 10:40 AM EDT Office Visit [facility]LEX[facility]ER CHAUDH[facility]I [address] [place] [address] Flores Gaytan PA [address] [place] [address] A[facility]ER [place] Start: 10-27-2024 End: 10-27-2024 Patient encounter procedure 10/27/2024 10:45 AM EDT Office Visit [facility] [address] [place] [address] Rosalinda Bernstein PA [address] [facility] [address] [place] [address] [facility] Start: 10-12-2024 End: 10-12-2024 Patient encounter procedure 10/12/2024 3:40 PM EDT Office Visit [facility]LEX[facility]ER [facility] [address] [facility] [address] [place] [address] Lory Busch PA [address] [place], [place] [id number] Arrived ALEXANDER MAR Comment on above: Arrived Start: 09-07-2024 End: 09-07-2024 [facility] Start: 08-27-2024 Screening for malignant neoplasm of breast Mammogram [facility] Start: 08-22-2024 End: 08-22-2024 Patient encounter procedure 08/22/2024 1:00 PM EDT Office Visit [facility] [address] [place] [id number] Robert Ferreira DO [address] [place] [place]aud[place], [place] [id number] [facility] Start: 07-20-2024 End: 07-20-2024 Patient encounter procedure [facility] Comment on above: Arrived Start: 06-21-2024 End: 06-21-2024 Patient encounter procedure [facility] Comment on above: Arrived Start: 06-13-2024 End: 06-13-2025 ECG 12 lead ECG 12 lead ECG Routine Preop testing Expected: 06/13/2024 (Approximate), Expires: 06/13/2025 [facility] Work Phone: Comment on above: Expected: 06/13/2024 (Approximate), Expi res: 06/13/2025 Start: 06-13-2024 End: 06-13-2024 Patient encounter procedure 06/13/2024 12:45 PM EST Office Visit GIOVANNI [facility] [address] [place] [phone] Kevin Aguilar DO [address] [place] [address] Basal cell carcinoma (BCC) of glabella [facility] Comment on above: Basal cell carcinoma (BCC) of glabella Start: 06-09-2024 End: 06-09-2024 Patient encounter procedure 06/09/2024 1:15 PM EST Office Visit [facility] [address] [place] [address] Aamir James MD [address] [place] [address] [facility] Start: 06-07-2024 End: 06-07-2024 Patient encounter procedure [facility] [address] [facility] Comment on above: Arrived Start: 01-17-2024 Influenza vaccination Influenza Vaccine (#1) [facility] Start: 09-30-2023 Urine culture Urine Culture [facility] Start: 03-31-2023 [facility] Start: 03-12-2023 [facility] Start: 02-26-2016 Pneumococcal Vaccine: 65+ Years (1 of 1 - PCV) Pneumococcal Vaccine: 65+ Years (1 of 1 - PCV) [facility] Start: 1950 Screening for malignant neoplasm of colon [facility] Adalimumab [Mass/vol ume] in Serum or Plasma [facility] Adalimumab Ab [Mass/volume] in Serum or Plasma [facility] Bacteria identified in Urine by Culture Urine Culture [facility] Comprehensive metabo lic 2000 panel - Serum or Plasma [facility] Dermatopathology exam Dermatopat hology exam Pathology and Cytology Timed Neoplasm of unspecified behavior of bone, soft tissue, and skin Release Upon Ordering for 1 Occurrences starting 04/12/2024 [facility] Work Phone: Comment on above: Release Upon Ordering for 1 Occurrences starting 04/12/2024 Patient Education [facility] Work Phone: THIN PREP TIS PAP AN D HR HPV DNA THIN PREP TIS PAP AND HR HPV DNA Pathology and Cytology Routine Well woman exam with routine gynecological exam Ordered: 08/22/2024 [facility] Work Phone: Comment on above: Ordered: 08/22/2024 Urinalysis complete panel - Urine Urinalysis with reflex microscopic Lab Routine 09/07/2024 12:39 PM EDT [facility] Work Phone: [facility] Immunizations Immunization Date Immunization Notes Care Provider Abdullahi parishandrew 04-28-2024 influenza virus vaccine, unspecified formulation Bambi Browning [facility] 04-28-2024 influenza, high dose seasonal, preservative-free Kevin Aguilar DO Work Phone: [facility] 04-28-2024 pneumococcal 20-jomar nt conjugate vaccine Bambi Browning [facility] 04-21-2022 COVID-19 mRNA Bivale nt Booster (Pfizer) MD Estefanía Sutherland Work Phone: [facility] 04-21-2022 influenza virus vaccine, unspecified formulation Bertha BLAND [facility] 04-21-2022 Influenza, High-dose Seasonal, Quadrivalent, Preservative Free Kateryna Chávez MD Work Phone: [facility] 04-21-2022 Moderna Bivalent Booster Vaccination Kateryna Chávez MD Work Phone: [facility] 04-21-2022 Moderna SARS-CoV-2 50mcg/0.5mL Booster Kateryna Chávez MD Work Phone: [facility] 03-15-2021 COVID-19 mRNA Comirnatpati (Pfizer) MD Estefanía Sutherland Work Phone: [facility] Comment on above: Result Comment: 2022: [id number] 03-15-2021 influenza virus vaccine, unspecified formulation Bertha BLAND [facility] 03-15-2021 Influenza, Seasonal, Quadrivalent, Adjuvanted Kateryna Chávez MD Work Phone: [facility] 01-24-2021 diphtheria, tetanus toxoids and pertussis vaccine Kateryna Chávez MD Work Phone: [facility] 08-08-2020 COVID-19 mRNA, Comirnaty (Pfizer) MD Estefanía Sutherland Work Phone: [facility] 07-11-2020 COVID-19 Luis Eduardo Gardner (Pfizer) MD Estefanía Sutherland Work Phone: [facility] 02-16-2020 influenza, injectabl e, quadrivalent, contains preservative Kateryna Chávez MD Work Phone: [facility] 07-01-2019 zoster vaccine recombinant Bertha BLAND [facility] 04-30-2019 influenza virus vaccine, unspecified formulation Bertha BLAND [facility] 04-30-2019 influenza, high dose seasonal, preservative-free Kateryna Chávez MD Work Phone: [facility] 04-30-2019 zoster vaccine recombinant Bertha BLAND [facility] Payers Date Payer Category Payer Self-pay [id number] [id number] 2016 Medicare MEDICARE [id number] [facility] [id number] 2.16.840.1.301190.19 1959 Medicare [id number] 2.16.840.1.507157.19 1951 Unknown [id number] 2.16.840.1.835697.3.579.2. 593 1951 Unknown [id number] 2.16.840.1.795609.3.579.2. 593 1951 Unknown [id number] 2.16.840.1.086623.3.579.2. 593 1951 Unknown [id number] 2.16.840.1.033830.3.579.2. 593 1951 Unknown [id number] 2.16.840.1.571243.3.579.2. 593 1951 Unknown [id number] 2.16.840.1.527015.3.579.2. 593 1951 Unknown [id number] 2.16.840.1.577730.3.579.2. 593 1951 Unknown [id number] 2.16.840.1.389629.3.579.2. 593 1951 Unknown [id number] 2.16.840.1.477791.3.579.2. 593 1951 Unknown [id number] 2.16.840.1.250385.3.579.2. 593 1951 Unknown [id number] 2.16.840.1.287015.3.579.2. 593 1951 Unknown [id number] 2.16.840.1.126554.3.579.2. 593 1951 Unknown [id number] 2.16.840.1.287490.3.579.2. 727 1951 Unknown [id number] 2.16.840.1.138137.3.579.2. 727 1951 Unknown [id number] 2.16.840.1.236374.3.579.2. 727 1951 Unknown [id number] 2.16.840.1.019667.3.579.2. 72 1951 Unknown [id number] 2.16.840.1.845359.3.579.2. 72 1951 Unknown [id number] 2.16.840.1.776874.3.579.2. 72 1951 Unknown [id number] 2.16.840.1.532740.3.579.2. 72 1951 Unknown [id number] 2.16.840.1.983087.3.579.2. 727 1951 Unknown [id number] 2.16.840.1.952499.3.579.2. 125 1951 Unknown [id number] 2.16.840.1.844995.3.579.2. 1259 1951 Unknown [id number] 2.16.840.1.912067.3.579.2. 125 1951 Unknown [id number] 2.16.840.1.179984.3.579.2. 1259 1951 Unknown [id number] 2.16.840.1.637243.3.579.2. 125 1951 Unknown [id number] 2.16.840.1.085342.3.579.2. 1259 1951 Unknown [id number] 2.16.840.1.522020.3.579.2. 1259 1951 Unknown [id number] 2.16.840.1.086218.3.579.2. 1258 1951 Unknown [id number] 2.16.840.1.532469.3.579.2. 1258 1951 Unknown [id number] 2.16.840.1.224175.3.579.2. 1258 1951 Unknown [id number] 2.16.840.1.305521.3.579.2. 1258 1951 Unknown [id number] 2.16.840.1.920407.3.579.2. 1258 1951 Unknown [id number] 2.16.840.1.632205.3.579.2. 1258 1951 Unknown [id number] 2.16.840.1.769359.3.579.2. 1258 1951 Unknown [id number] 2.16.840.1.883813.3.579.2. 1258 1951 Unknown [id number] 2.16.840.1.350703.3.579.2. 1258 1951 Unknown [id number] 2.16.840.1.257823.3.579.2. 1258 1951 Unknown [id number] 2.16.840.1.919786.3.579.2. 1258 1951 Unknown [id number] 2.16.840.1.645516.3.579.2. 1258 1951 Unknown [id number] 2.16.840.1.250514.3.579.2. 1258 1951 Unknown [id number] 2.16.840.1.034936.3.579.2. 1258 1951 Unknown [id number] 2.16.840.1.726244.3.579.2. 727 1951 Unknown [id number] 2.16.840.1.222200.3.579.2. 727 1951 Unknown [id number] 2.16.840.1.689890.3.579.2. 727 1951 Unknown [id number] 2.16.840.1.720259.3.579.2. 727 1951 Unknown [id number] 2.16.840.1.042189.3.579.2. 727 1951 Unknown [id number] 2.16.840.1.535337.3.579.2. 727 1951 Unknown [id number] 2.16.840.1.705664.3.579.2. 727 Unknown [facility] Health Claims [id number] Unknown [id number] 2.16.840.1.626930.3.579.2. 531 Unknown [id number] 2.16.840.1.047182.3.579.2. 531 Social History Date Type Detail Facility Unknown if ever smoked [facility] Start: 12-28-2023 End: 11-29-2024 Sex Assigned At [facility] Start: 05-05-2022 End: 06-21-2024 Tobacco smoking status ARIS Ex-smoker (finding) [facility] Comment on above: quite smoking 2001. did previously smoke 1.5-2 PPD Start: 1950 Sex Assigned At Female F [facility] Start: 11-19-2022 End: 05-13-2023 Tobacco smoking status Never [facility] Comment on above: quite smoking 2001. did previously smoke 1.5-2 PPD End: 04-08-2002 History of tobacco use Current smoker [facility] End: 04-08-2002 History of tobacco use Cigarette Smoker [facility] Start: 04-17-2023 End: 06-21-2024 Tobacco use and exposure Smokeless tobacco non-user [facility] Start: 04-12-2024 End: 11-29-2024 Alcoholic beverage intake Current drinker of alcohol (finding) [facility] Start: 04-12-2024 End: 11-29-2024 Alcoholic beverage intake [facility] Start: 02-22-2023 Alcohol Comment caffeine intak e: 3-4 cups per day. [facility] Start: 11-19-2022 Gender identity Identifies as female gender (finding) [facility] Start: 06-21-2024 Alcohol Comment Less than one drink per month [facility] Start: 08-15-2024 End: 09-08-2024 Sex Female (finding) [facility] Medical Equipment Procedure Code Equipment Code Equipment Origin al Text Equipment Identifier Dates Arthroplasty, knee, total, minimally invasive Orthopaedic cement, non-medicated [id number] FDA Start: 12-11-2022 Arthroplasty, knee, total, minimally invasive Orthopaedic bone screw, non-bioabsorbable, sterile ()[id number] FDA Start: 12-11-2022 Arthroplasty, knee, total, minimally invasive Orthopaedic bone screw, non-bioabsorbable, sterile ()[id number] FDA Start: 12-11-2022 Arthroplasty, knee, total, minimally invasive Uncoated knee femur prosthesis ()[id number] FDA Start: 12-11-2022 Arthroplasty, knee, total, minimally invasive Tibial insert ()[id number] FDA Start: 12-11-2022 Arthroplasty, knee, total, minimally invasive Uncoated knee tibia prosthesis, metallic ()[id number] FDA Start: 12-11-2022 Arthroplasty, knee, total, minimally invasive Polyethylene patella prosthesis ()[id number] FDA Start: 12-11-2022 Goals Date Patient Goal Desired Activity /State Functional Status Date Assessment Result Facility 02-18-2024 Functional Status N/A [facility] 08-17-2023 Functional Status N/A [facility] 02-13-2023 Functional Status N/A [facility] 07-24-2022 Functional Status N/A [facility] Clinical Notes 04-02-2021 to 01-11-2025 Telephone Encounter - Almita Dicker - 01/11/2025 3:16 PM EDTTelephone Encounter - Almita Laureano - 01/11/2025 3:16 PM EDTEted Chávez MD - 11/29/2024 11:05 AM EDT Note Date & Type Note Facility 01-11-2025 Telephone encount er Note L TKA 10/22/23 , R TKA 12/11/22, KIRSTIE 10/27/24 Has dental appt 01/26/25 and needs antibiotic rx [facility] 01-11-2025 Miscellaneous Notes Formattin g of this note might be different from the original. L TKA 10/22/23 , R TKA 12/11/22, KIRSTIE 10/27/24 Has dental appt 01/26/25 and needs antibiotic rx [facility] documented in this encounter [facility] 11-29-2024 History of Presen t illness Narrative Skin Check Location: Patient requests a full body skin examination Dermatologic history: history of Basal Cell Carcinoma (Glabella) Last visit: 8 months ago Hair Loss Location: top of scalp and eyelashes Duration: years Severity: diffuse Associated factors: has no thyroid Treatments tried: Nutrafol (ineffective), oral Minoxidil x 3 months (ineffective) All pertinent medical history, medications, and allergies were reviewed. General Exam: alert, oriented to person, place, and time, normal affect, well appearing Scalp, Examined Right leg Examined Head, Face Examined Left leg Examined Neck Examined Right foot Examined Chest Examined Left foot Examined Back Examined Buttocks Examined Patient kept underwear on Abdomen Examined Digits,nails: Examined Right arm Examined Patient wearing nail chinese, Denies dark streaks on toenails Left arm Examined Lymphatics: Not examined Hands Examined Skin Exam 1. MELANOCYTIC NEVUS OF TRUNK Generalized Scattered benign appearing, regular brown to light brown melanocytic papules and macules with similar morphology Counseled regarding these benign growths. Rarely, a nevus can develop into malignant melanoma, so any changing nevi should be promptly re-evaluated. 2. SEBORRHEIC KERATOSIS Generalized Stuck on verrucous, gunter-brown papules and plaques. Patient was counseled regarding these benign growths. Removal is normally not necessary, but they may be removed if they are symptomatic or for cosmetic reasons. 3. HISTORY OF BASAL CELL CARCINOMA Glabella No evidence of recurrence at BCC scar. The patient was counseled that scars from excisional sites of nonmelanoma skin cancers should be monitored closely for recurrence. The patient was instructed to contact the office for any new, changing, or symptomatic moles. The patient was also instructed to contact the office for any new lesions that develop within or around the previous surgery scar. 4. ANDROGENIC ALOPECIA Scalp Frontal scalp thinning with intact frontal hairline and miniaturization, not at treatment goal Patient was counseled that this condition is chronic and can be controlled, but not cured. Discussed treatment options including topical minoxidil, oral prescriptions, or supplements. Recommend patient start topical minoxidil daily at bedtime. Can purchase generic men's strength liquid, apply to affected areas at bedtime, rinse off in morning if desired. Discussed it can take up to 3-6 months to see improvement. Next Visit: 1 year documented in this encounter [facility] 10-27-2024 History of Presen t illness Narrative Images from the original note were not included. Orthopedic Office note: NAME: Gia Ruiz : 1950 (EST PT) - YEARLY RECHECK B/L KNEES - S/P (L) TKA 10/22/23 (1 YR, 1 WK) ; S/P (R) TKA 12/11/22 (1 YR, 10 MONTHS) (R) KNEE XRAY TODAY, 10/27/24 IN EPIC XRAY 01/22/23 IN CHANGE NO MDP/PREDNISONE S/P PT @[facility] PT WOULD LIKE TO RENEW EDWIN SOLORIO FOR 2 VEHICLES TODAY. PRESENTS AMBULATING WITHOUT ASSISTANCE. ADMITS INTERMITTENT LATERAL ANTERIOR DISCOMFORT WITH STAIRS / WITH FLEXION. DENIES WAKING HS. ADMITS OCCASIONAL CATCHING WITH EXTENSION IN BED HS. DENIES SWELLING. DENIES N/T. GOOD ROM. SOME WEAKNESS. CONTINUES CHAIR YOGA / STAYING ACTIVE. PREGABALIN / BACLOFEN - WITH RELIEF. DENIES ICING / HEATING. NO TOPICALS. (L) KNEE XRAY TODAY, 10/27/24 IN EPIC XRAYS, 11/27/23 IN EPIC S/P PT (13 SESSIONS) @[facility] ADMITS TINGLING NERVE SENSATION TO LATERAL ASPECT OF KNEE / ANKLE. DENIES DISCOMFORT. ADMITS POSTERIOR LEG STIFFNESS SINCE STROKE (09/10/2019). DENIES SWELLING. DENIES NUMBNESS. LIMITED ROM D/T POSTERIOR STIFFNESS. GOOD STRENGTH. CONTINUES CHAIR YOGA / STAYING ACTIVE. PREGABALIN / BACLOFEN - WITH RELIEF. DENIES ICING / HEATING. NO TOPICALS. CONTINUES TAKING ASA 81MG DAILY Knee Musculoskeletal Exam Gait Steppage: left Inspection Leg length disparity: no discrepancy Right Erythema: none Effusion: none Edema: none Ecchymosis: none Deformity: none Alignment: normal Previous incision: anterolateral Incision: well-healed Left Erythema: none Effusion: none Edema: none Ecchymosis: none Deformity: none Alignment: normal Previous incision: anterior Incision: well-healed Inspection additional comments: Pes planus bilateral Palpation Right Right knee palpation is unremarkable. Increased warmth: none Masses: none Tenderness: none Left Left knee palpation is unremarkable. Increased warmth: none Masses: none Tenderness: none Range of Motion Right Right knee range of motion is normal and full. Active extension: 0 Passive extension: 0 Active flexion: 120 Passive flexion: 120 Left Left knee range of motion is normal and full. Active extension: 0 Passive extension: 0 Active flexion: 120 Passive flexion: 120 Strength Right Right knee strength is normal. Extension: 5/5. Flexion: 5/5. Left Left knee strength is normal. Extension: 5/5. Flexion: 5/5. Instability Right Instability signs: none - stable Varus stress grade: normal Valgus stress grade: normal Left Instability signs: none - stable Varus stress grade: normal Valgus stress grade: normal Neurovascular Right Right knee neurovascular exam is normal. Pulses - PT: normal Posterior tibial: 2+ Capillary refill: warm and well-perfused Left Left knee neurovascular exam is normal. Pulses - PT: normal Posterior tibial: 2+ Capillary refill: warm and well-perfused Special Signs Right Right knee special signs are normal. Patellar compression: none Patellar apprehension: none Left Left knee special signs are normal. Patellar compression: none Patellar apprehension: none General Constitutional: appears stated age Labored breathing: no Psychiatric: normal mood and affect Neurological: alert Skin: intact Lymphadenopathy: none Orders Placed This Encounter Procedures General supply request: Edwin Solorio 5 yr No refills, 5 yr use Details for supply request:: Edwin Solorio 5 yr XR knee 1 or 2 views right Reason for exam:: Post-op XR knee 1 or 2 views left Reason for exam:: Post-op Procedures Results - Imaging: - X-rays of bilateral knee replacements show they are doing well without evidence of complication ICD-10-CM 1. S/P total knee arthroplasty, left Z96.652 XR knee 1 or 2 views left 2. S/P TKR (total knee replacement), right Z96.651 XR knee 1 or 2 views right 3. Right knee pain, unspecified chronicity M25.561 4. Left knee pain, unspecified chronicity M25.562 5. Gait disturbance, post-stroke I69.398 General supply request: Edwin Solorio 5 yr R26.9 Assessment & Plan Follow-up for bilateral knee replacements. X-rays were reviewed and discussed at the bedside, showing that the replacements are performing well without any signs of complications. She exhibits some gait disturbances, likely related to her previous stroke. She experiences constant paresthesias in the left foot and occasional weakness. There is no evidence of drop foot today, but she reports fatigue in the leg over time. Her gait is slightly affected by a steppage gait on the left and pes planus with inward rolling of her ankle. There is no pain with hip or knee range of motion. The possibility of mild spinal stenosis was discussed, given her limitations with excessive walking, low back pain, and bilateral hip pain, none of which were reproducible during the range of motion examination at the bedside today. Treatment plan: Ambulation with a walker or cane was suggested to help normalize her gait pattern and reduce the risk of falls. She has previously used walking sticks. Follow-up: An annual recheck of her knees was recommended, and she was advised to contact us sooner if she experiences any lumbar radicular symptoms. PROCEDURE Procedure Performed Bilateral knee replacements Questions answered in laymen terms at the bedside. The diagnosis, home exercise plan and any ongoing restrictions/ recommendations reviewed. If unable to be reached in office, I recommend evaluation at nearest Emergency Room if any symptoms worsened or new symptoms develop for requiring urgent evaluation. Visit was preformed using [employer]otely piloted vehicle controller speech recognition. documented in this encounter [facility] 10-12-2024 History of Presen t illness Narrative Images from the original note were not included. Subjective Gia Ruiz is a 74 y.o. year old female Chief Complaint Patient presents with Cerebrovascular Accident Past Medical History: Diagnosis Date Abnormal Pap smear of cervix Acid reflux Alcohol abuse BMI 33.0-33.9,adult Crohn's disease (CMS/HCC) Depression (CMS/HCC) Depression screen Diabetes type 2, controlled (CMS/HCC) Diabetes, gestational DM2 (diabetes mellitus, type 2) (CMS/HCC) Dysuria 06/12/2024 Encounter for gynecological examination (general) (routine) without abnormal findings GERD (gastroesophageal reflux disease) H/O degenerative disc disease Hemangioma Hepatitis A History of being hospitalized STROKE 08/2019, childbirth Hyperlipidemia (CMS/HCC) Hypertension (CMS/HCC) Hypothyroid (CMS/HCC) Hypothyroidism (CMS/HCC) Kidney disease Labial abscess 06/12/2024 Lacunar infarction (CMS/HCC) Neurologic disorder OA (osteoarthritis) JOSE RAMON (obstructive sleep apnea) Post menopausal syndrome Post-menopausal Pre-op exam 06/12/2024 PVD (peripheral vascular disease) (CMS/HCC) Skin texture changes 06/12/2024 Thyroid cancer (CMS/HCC) Urge incontinence 06/12/2024 Urinary frequency 06/12/2024 Well woman exam Past Surgical History: Procedure Laterality Date APPENDECTOMY BASAL CELL CARCINOMA EXCISION 06/18/2024 BLADDER SUSPENSION 2021 CERVICAL POLYPECTOMY 2007 COLONOSCOPY [...] TOTAL KNEE ARTHROPLASTY Left 10/22/2023 DR CÁRDENAS WOUND DEBRIDEMENT 06/15/2024 Mohs repair left forehead Family History Problem Relation Name Age of Onset Hypertension Mother Rosa Maria Scott Lung cancer Mother Rosa Maria Scott Diabetes Mother Rosa Maria Scott Stroke Mother Rosa Maria Scott Depression Mother Rosa Maria Scott Obesity Mother Rosa Maria Scott Arthritis Mother Rosa Maria Scott Cancer Mother Rosa Maria Scott Other (parkinsons) Father Tex Scott Alzheimer's disease Father Tex Scott Hypertension Father Tex Scott Diabetes Father Tex Holcombehl Heart failure Brother Karthik Chavez Cancer Maternal Grandmother Glarafa Bourgeoisig Heart disease Maternal Grandfather Hypertension Sibling Heart disease Sibling Cancer Sibling Depression Sibling Cancer Mother's Sister Lora Riddle Cancer Mother's Sister Teri Diego Cancer Brother Augustus Chavez Heart failure Brother Dominick Chavez Hypertension Brother Dominick Chavez Heart failure Brother Zack Chavez Social History Tobacco Use Smoking status: Former Current packs/day: 0.00 Average packs/day: 1.5 packs/day for 32.0 years (48.0 ttl pk-yrs) Types: Cigarettes Quit date: 04/08/2002 Years since quittin.5 Smokeless tobacco: Never Substance Use Topics Alcohol use: Yes Alcohol/week: 1.0 standard drink of alcohol Comment: Less than one drink per month Medication Documentation Review Audit Reviewed by Carmelita Macdonald MA ([employer]) on 10/12/24 at 1549 Medication Order Taking? Sig Documenting Provider Last Dose Status acetaminophen (Tylenol 8 Hour) 650 MG ER tablet [id number] No Take by mouth. Historical Provider, Taking Active adalimumab (Humira) 40 MG/0.8ML Prefilled Syringe Kit prefilled syringe [id number] No 0.8 ml Subcutaneous Historical Provider, Not Taking Active amoxicillin (Amoxil) 500 MG tablet [id number] 4 tabs PO once 30-60 mins before procedure with food PONCHO Ulloa Active ascorbic acid (Vitamin C) 250 MG chewable tablet [id number] No Vitamin C Historical ProviderMD Taking Active aspirin 81 MG EC tablet [id number] Take 1 tablet by mouth in the morning. Historical ProviderMD Active atorvastatin (Lipitor) 20 MG tablet [id number] No Take 1 tablet every day by oral route for 30 days. Historical MD Fausto Taking Active Bacillus Coagulans-Inulin (PROBIOTIC-PREBIOTIC PO) [id number] No Probiotic Historical ProviderMD Taking Active baclofen (Lioresal) 10 MG tablet [id number] TAKE 1 TABLET BY MOUTH IN THE MORNING AND 2 BEFORE BEDTIME NEEDED PONCHO Barrientos Active calcium carbonate EX (Tums Extra Strength) 750 MG chewable tablet [id number] No Chew 300 mg. Historical MD Fausto Taking Active cholecalciferol (Vitamin D-3) 1.25 MG (97829 UT) capsule [id number] Take 50,000 Units by mouth 1 (one) time per week 1 capsule Orally twice a month PONCHO Barrientos Active coenzyme Q-10 100 MG ER capsule [id number] No as directed Orally Historical ProviderMD Taking Active Cranberry 500 MG chewable tablet [id number] No Chew. Historical ProviderMD Taking Active ferrous sulfate 325 (65 Fe) MG tablet [id number] Take 325 mg by mouth in the morning. Take with meals. PONCHO Barrientos Active levothyroxine (Synthroid, Levoxyl) 125 MCG tablet [id number] No Take 1 tablet every day by oral route for 90 days. Historical MD Fausto Taking Active liothyronine (Cytomel) 5 MCG tablet [id number] No 1 (one) time each day at the same time. Historical ProviderMD Taking Active losartan-hydroCHLOROthiazide (Hyzaar) 100-25 MG tablet [id number] No Take by mouth. Historical ProviderMD Taking Active magnesium gluconate (Magonate) 500 MG tablet [id number] No Take by mouth. Historical MD Fausto Taking Active Melatonin 5 MG chewable tablet [id number] No Melatonin Historical MD Fausto Taking Active metFORMIN (Glucophage) 500 MG tablet [id number] No Take 3 tablets every day by oral route for 90 days. Historical ProviderMD Taking Active Methylcobalamin (Methyl B-12) 500 MCG chewable tablet [id number] No See Instructions, 5 mg Chewed, Refills(s) 0 Historical ProviderMD Taking Active Multiple Vitamin (Multi Vitamin) tablet [id number] No 1 (one) time each day at the same time. Historical ProviderMD Taking Active Selma-3 Fatty Acids (Fish Oil) 1200 MG capsule delayed-release [id number] No Take by mouth. Historical Provider, Taking Active omeprazole (PriLOSEC) [address] capsule [id number] No Take 1 capsule every day by oral route for 90 days. Historical Provider, Taking Active ondansetron (Zofran) 8 MG tablet [id number] Take 8 mg by mouth every 8 (eight) hours if needed for nausea PONCHO Ulloa Active Tirzepatide (Mounjaro) 5 MG/0.5ML solution auto-injector [id number] Inject 5 mg under the skin 1 (one) time per week Historical Provider, Active Zinc Sulfate (ZINC 15 PO) [id number] No Zinc Historical ProviderMD Taking Active HPI Stroke -on ASA -denies any new signs or syptoms of a stroke Leg pain/ Back pain -on Baclofen -reports pain has increased -left leg from knee down constantly feels tight -thought knee replacement would hep and it hasn't -would like to talk about starting new medication -numbness in left leg has worsening -feels an impulse sensation in left knee and ankle -back pain has not been bad -flairs up while walking due to the stiffness of her left leg -balance is ok -denies any recent falls ROS Review of Systems Constitutional: Negative. Respiratory: Negative. Cardiovascular: Negative. Gastrointestinal: Negative. Musculoskeletal: Positive for arthralgias, back pain and myalgias. Neurological: Positive for numbness. Objective Visit Vitals BP 124/82 Pulse 74 Resp 16 Ht 5' 2 Wt 193 lb SpO2 98% BMI 35.30 kg/m OB Status Postmenopausal Smoking Status Former BSA 1.96 m Heart-RRR Neurological Exam Mental Status Awake, alert and oriented to person, place and time. Oriented to person, place, time and situation. Recent and remote memory are intact. Speech is normal. Language is fluent with no aphasia. Attention and concentration are normal. Fund of knowledge is appropriate for level of education. Cranial Nerves CN III, IV, : Extraocular movements intact bilaterally. Normal lids and orbits bilaterally. Pupils equal round and reactive to light bilaterally. CN VII: Right: There is no facial weakness. Left: There is no facial weakness. CN VIII: Hearing is normal. CN XI: Shoulder shrug strength is normal. CN XII: Tongue midline without atrophy or fasciculations. Sensory Light touch is normal in upper and lower extremities. Gait Antalgic. Motor Examination RUE Strength deltoid, biceps, triceps, wrist extensors, wrist extensors, wrist flexor, industrial technology teacher strength 5/5. LUE Strength deltoid, biceps, triceps, wrist extensors, wrist extensors, wrist flexor, industrial technology teacher strength 5/5. RLE Strength illopsoas, quadriceps, tibialis anterior, and gastrocnemius strength 5/5. LLE Strength illopsoas, quadriceps, tibialis anterior, and gastrocnemius strength 5/5. Tone Normal tone x4 extremities. 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 She initially presented with left sided [...] but was otherwise within normal limits. She denies new signs or symptoms of stroke. Her neuropathic pain to her left lower extremity has increased. Spasticity She continues with spasticity mainly to her [...] taking Ferritin and Magnesium per her PCP. Lumbosacral radiculopathy She continues with paresthesia and difficulty lifting her foot to the LLE. EMG of the bilateral lower extremities 02/20/21 revealed a remote S1 radiculopathy on the left. She has trialed gabapentin per her PCP with no benefit. Patient states that her ambulating has improved somewhat s/p knee surgery. She continues with symptoms at night manifested as stiffness and neuropathic pain. She has intermittent paresthesias manifested as pins and needles around her left knee after her knee surgery. This occurs a few times per week and is short lived. She would like to try a medication to help with symptoms. Degenerative disc disease, lumbar Patient continues with back pain. She did not have benefit with PT. MRI of the lumbar spine 03/21/21 revealed multilevel degenerative changes most pronounced at L4-L5 with moderate to severe disc space narrowing left greater than right. There are various levels of osteophyte formation and facet arthopathy. She avoids NSAIDs due to acid reflux and takes tylenol twice daily. She has completed PT. Plan: Trial Lyrica 50mg PO BID for neuropathic symptoms OARRS reviewed I counseled patient on potential medication side effects. Continue aspirin 81mg PO daily for secondary stroke prevention. Continue to follow with PCP for stroke risk factor management. Continue baclofen 10mg PO QAM and 2 tabs PO QHS for spasticity. I counseled the patient on stroke signs and symptoms and advised the patient to go immediately to the emergency room should these symptoms develop. The patient states understanding. I counseled the patient on fall precautions. I discussed the high risk of trauma and debility associated with falls. She verbalized understanding. Follow up in 3 months Lory Busch PA-C documented in this encounter [facility] 08-22-2024 History of Presen t illness Narrative Reason for Appointment: Patient ID: Gia Ruiz is a 74 y.o. female who presents for Well Women Visit Patient presents today for Annual Exam. MEDICATIONS Current Outpatient Medications Medication Instructions acetaminophen (Tylenol 8 Hour) 650 MG ER tablet Take by mouth. adalimumab (Humira) 40 MG/0.8ML Prefilled Syringe Kit prefilled syringe 0.8 ml Subcutaneous amoxicillin (Amoxil) 500 MG tablet 4 tabs PO once 30-60 mins before procedure with food ascorbic acid (Vitamin C) 250 MG chewable tablet Vitamin C aspirin 81 MG EC tablet 1 tablet, Daily atorvastatin (Lipitor) 20 MG tablet Take 1 tablet every day by oral route for 30 days. Bacillus Coagulans-Inulin (PROBIOTIC-PREBIOTIC PO) Probiotic baclofen (Lioresal) 10 MG tablet TAKE 1 TABLET BY MOUTH IN THE MORNING AND 2 BEFORE BEDTIME NEEDED calcium carbonate EX (TUMS EXTRA STRENGTH) 300 mg cholecalciferol (VITAMIN D-3) 50,000 Units, Weekly coenzyme Q-10 100 MG ER capsule as directed Orally Cranberry 500 MG chewable tablet Chew. ferrous sulfate 325 mg, Daily with breakfast levothyroxine (Synthroid, Levoxyl) 125 MCG tablet Take 1 tablet every day by oral route for 90 days. liothyronine (Cytomel) 5 MCG tablet Every 24 hours losartan-hydroCHLOROthiazide (Hyzaar) 100-25 MG tablet Take by mouth. magnesium gluconate (Magonate) 500 MG tablet Take by mouth. Melatonin 5 MG chewable tablet Melatonin metFORMIN (Glucophage) 500 MG tablet Take 3 tablets every day by oral route for 90 days. Methylcobalamin (Methyl B-12) 500 MCG chewable tablet See Instructions, 5 mg Chewed, Refills(s) 0 Mounjaro 5 mg, Weekly Multiple Vitamin (Multi Vitamin) tablet Every 24 hours Selma-3 Fatty Acids (Fish Oil) 1200 MG capsule delayed-release Take by mouth. omeprazole (PriLOSEC) [address] capsule Take 1 capsule every day by oral route for 90 days. ondansetron (ZOFRAN) 8 mg, Every 8 hours PRN Zinc Sulfate (ZINC 15 PO) Zinc ALLERGIES Allergies Allergen Reactions Sulfamethoxazole-Trimethoprim Rash Oxycodone-Acetaminophen Hallucinations PROBLEMS Active Ambulatory Problems Diagnosis Date Noted Acid reflux 11/26/2022 GERD (gastroesophageal reflux disease) 11/26/2022 Acute cystitis without hematuria 11/26/2022 Asymptomatic microscopic hematuria 11/26/2022 Class 1 obesity 11/26/2022 Crohn's disease ([facility]/HCC) 11/26/2022 Diabetes mellitus (CMS/HCC) 11/26/2022 Hyperlipidemia (CMS/HCC) 11/26/2022 Hypertension (CMS/HCC) 10/03/2019 Hypothyroidism (CMS/HCC) 11/26/2022 Incomplete bladder emptying 11/26/2022 Malignant neoplasm of thyroid gland ([facility]/HCC) 04/13/2006 JOSE RAMON (obstructive sleep apnea) 11/26/2022 Osteoarthritis of knee 11/26/2022 Osteoarthritis 11/26/2022 Primary osteoarthritis of right knee 11/26/2022 Primary osteoarthritis 11/26/2022 Status post total knee replacement 11/26/2022 UTI (urinary tract infection) 11/26/2022 Kidney stone 12/25/2022 Type II diabetes mellitus ([facility]) 12/25/2022 Hypertensive disorder ([facility]) 10/03/2019 Acute pain of left knee 11/12/2023 Cerebrovascular accident (CVA) (CMS/[facility]) 12/19/2023 Left hemiparesis ([facility]) 12/19/2023 Paresthesia of skin 12/19/2023 Spasticity 12/19/2023 DDD (degenerative disc disease), lumbar 12/19/2023 Resolved Ambulatory Problems Diagnosis Date Noted Alcohol abuse 11/26/2022 Dysuria 06/12/2024 Labial abscess 06/12/2024 Pre-op exam 06/12/2024 Skin texture changes 06/12/2024 Urge incontinence 06/12/2024 Urinary frequency 06/12/2024 Past Medical History: Diagnosis Date Abnormal Pap smear of cervix BMI 33.0-33.9,adult Depression ([facility]) Depression screen Diabetes type 2, controlled ([facility]/HCC) Diabetes, gestational DM2 (diabetes mellitus, type 2) ([facility]) Encounter for gynecological examination (general) (routine) without abnormal findings H/O degenerative disc disease Hemangioma Hepatitis A History of being hospitalized Hypothyroid (CMS/HCC) Kidney disease Lacunar infarction ([facility]/HCC) Neurologic disorder OA (osteoarthritis) Post menopausal syndrome Post-menopausal PVD (peripheral vascular disease) ([facility]) Thyroid cancer ([facility]) Well woman exam HISTORY PAST MEDICAL HISTORY SOCIAL HISTORY Past Medical History: Diagnosis Date Abnormal Pap smear of cervix Acid reflux Alcohol abuse BMI 33.0-33.9,adult Crohn's disease (CMS/HCC) Depression ([facility]/HCC) Depression screen Diabetes type 2, controlled ([facility]/HCC) Diabetes, gestational DM2 (diabetes mellitus, type 2) ([facility]/HCC) Dysuria 06/12/2024 Encounter for gynecological examination (general) (routine) without abnormal findings GERD (gastroesophageal reflux disease) H/O degenerative disc disease Hemangioma Hepatitis A History of being hospitalized STROKE 08/2019, childbirth Hyperlipidemia (CMS/HCC) Hypertension (CMS/HCC) Hypothyroid (CMS/HCC) Hypothyroidism (CMS/HCC) Kidney disease Labial abscess 06/12/2024 Lacunar infarction (CMS/HCC) Neurologic disorder OA (osteoarthritis) JOSE RAMON (obstructive sleep apnea) Post menopausal syndrome Post-menopausal Pre-op exam 06/12/2024 PVD (peripheral vascular disease) (CMS/HCC) Skin texture changes 06/12/2024 Thyroid cancer (CMS/HCC) Urge incontinence 06/12/2024 Urinary frequency 06/12/2024 Well woman exam Social History Tobacco Use Smoking status: Former Current packs/day: 0.00 Average packs/day: 1.5 packs/day for 32.0 years (48.0 ttl pk-yrs) Types: Cigarettes Quit date: 04/08/2002 Years since quittin.3 Smokeless tobacco: Never Vaping Use Vaping status: Never Used Substance Use Topics Alcohol use: Yes Alcohol/week: 1.0 standard drink of alcohol Comment: Less than one drink per month Drug use: Never FAMILY HISTORY Family History Problem Relation Name Age of Onset Hypertension Mother Rosa Maria Chavez Lung cancer Mother Rosa Maria Chavez Diabetes Mother Rosa Maria Chavez Stroke Mother Rosa Maria Chavez Depression Mother Rosa Maria Laml Obesity Mother Rosa Maria Laml Arthritis Mother Rosa Maria Laml Cancer Mother Rosa Maria Chavez Other (parkinsons) Father Tex Chavez Alzheimer's disease Father Tex Chavez Hypertension Father Tex Chavez Diabetes Father Tex Chavez Heart failure Brother Karthik Chavez Cancer Maternal Grandmother Syed Osborne Heart disease Maternal Grandfather Hypertension Sibling Heart disease Sibling Cancer Sibling Depression Sibling Cancer Mother's Sister Lora Riddle Cancer Mother's Sister Teri Diego Cancer Brother Augustus Chavez Heart failure Brother Dominick Chavez Hypertension Brother Dominick Chavez Heart failure Brother Zack Chavez SURGICAL HISTORY Past Surgical History: Procedure Laterality Date APPENDECTOMY BASAL CELL CARCINOMA EXCISION 06/18/2024 BLADDER SUSPENSION 2021 CERVICAL POLYPECTOMY 2007 COLONOSCOPY [...] / PARTIAL HYSTERECTOMY - DR BEVERLY THYROIDECTOMY 2003 thyroidectomy with ablation TOTAL ABDOMINAL HYSTERECTOMY 2021 TOTAL KNEE ARTHROPLASTY Right 12/11/2022 DR CÁRDENAS TOTAL KNEE ARTHROPLASTY Left 10/22/2023 DR CÁRDENAS WOUND DEBRIDEMENT 06/15/2024 Mohs repair left forehead REVIEW OF SYSTEMS Review of Systems: Review of Systems Constitutional: Negative. HENT: Negative. Eyes: Negative. Respiratory: Negative. Cardiovascular: Negative. Gastrointestinal: Negative. Genitourinary: Negative. Musculoskeletal: Negative. Skin: Negative. Neurological: Negative. All other systems reviewed and are negative. Hematological: Negative. Endocrine: Negative. Allergic/Immunologic: Negative. OBJECTIVE Objective: Physical Exam Constitutional: Appearance: Normal appearance. She is well-developed. Genitourinary: Vulva normal. Breasts: Breasts are soft. Right: Normal. Left: Normal. Cardiovascular: Rate and Rhythm: Normal rate and regular rhythm. Pulmonary: Effort: Pulmonary effort is normal. Breath sounds: Normal breath sounds. Abdominal: General: Bowel sounds are normal. There is no distension. Palpations: Abdomen is soft. Tenderness: There is no abdominal tenderness. There is no guarding or rebound. Musculoskeletal: General: No swelling. Normal range of motion. Right lower leg: No edema. Left lower leg: No edema. Neurological: Mental Status: She is alert and oriented to person, place, and time. Skin: General: Skin is warm and dry. Psychiatric: Mood and Affect: Mood normal. Behavior: Behavior normal. Vitals and nursing note reviewed. Exam conducted with a integrity engineer present. Vitals: Estimated body mass index is 35.03 kg/m as calculated from the following: Height as of 25: 5' 2 . Weight as of this encounter: 191 lb 8 oz. BP: 132/76 No LMP recorded. Patient is postmenopausal. ASSESSMENT & PLAN ICD-10-CM 1. Well woman exam with routine gynecological exam Z01.419 THIN PREP TIS PAP AND HR HPV DNA 2. Encounter for screening mammogram for malignant neoplasm of breast Z12.31 CANCELED: Bilateral screening mammogram CANCELED: Bilateral screening mammogram Annual Exam: Patient presents today for an annual exam. Patient states she is doing well and has no complaints. Pap was obtained without difficulty. No orders of the defined types were placed in this encounter. Follow Up: Patient is to return in one year for annual unless needed otherwise. Documented by Donna Nath NP on behalf of: Robert Ferreira DO documented in this encounter [facility] 08-15-2024 Evaluation note Diagnosis Onset Date Resolution Crohn disease acute August 15, 2024 10:31am GERD (gastroesophageal reflux disease) acute August 15, 2024 10:31am prison (current) use of immunosuppressive biologic acute August 15, 2024 10:31am [facility] Work Phone: [phone] 704-420003-05-2025 History of Present illness Narrative* Kevin Aguilar DO - 07/20/2024 1:30 PM EST HPI Patient presents today status post closure [...] her back as needed documented in this encounterCenterpoint [facility] [id number] Telephone encounter Note* Telephone Encounter - Myra Turcios - 06/23/2024 1:09 PM EST Patient notified [facility] [id number] Miscellaneous Notes* Telephone Encounter - Myra Turcios - 06/23/2024 1:09 PM EST Patient notified * Telephone Encounter - PONCHO Ulloa - 06/23/2024 12:17 PM EST Rx sent to pharmacy * Telephone Encounter - Myra Turcios - 06/23/2024 11:50 AM EST Patient called and left vm requesting antibiotic be sent to her pharmacy for her upcoming dentist appt. documented in this encounterCenterpoint Medical [id number] Telephone encounter Note* Telephone Encounter - PONCHO Ulloa - 06/23/2024 12:17 PM EST Rx [facility] to pharmacy [facility] [id number] Telephone encounter Note* Telephone Encounter - Myra Turcios - 06/23/2024 11:50 AM EST Patient called and left vm requesting antibiotic be sent to her pharmacy for her upcoming dentist appt. [facility] [id number] History of Present illness Narrative* Kevin Aguilar DO - 06/21/2024 9:45 AM EST HPI Patient presents today 1 week postop [...] back in a month documented in this encounterCenterpoint Medical [id number] History of Present illness Narrative* Kevin Aguilar DO - 06/13/2024 12:45 PM EST Allergies as of 06/13/2024 - Reviewed 06/09/2024 Allergen Reaction Noted Sulfamethoxazole-trimethoprim Rash 11/26/2022 Hydrocodone-acetaminophen GI intolerance 11/26/2022 Oxycodone-acetaminophen Hallucinations 11/26/2022 Wound dressing adhesive Rash 08/13/2023 Past Medical History: Diagnosis Date Abnormal Pap smear of cervix Acid reflux Alcohol abuse BMI 33.0-33.9,adult Crohn's disease ([facility]/HCC) Depression ([facility]) Depression screen Diabetes type 2, controlled ([facility]) Diabetes, gestational DM2 (diabetes mellitus, type 2) ([facility]) Encounter for gynecological examination (general) (routine) without abnormal findings GERD (gastroesophageal reflux disease) H/O degenerative disc disease Hemangioma Hepatitis A History of being hospitalized STROKE 08/2019, childbirth Hyperlipidemia ([facility]/HCC) Hypertension ([facility]/HCC) Hypothyroid ([facility]/HCC) Hypothyroidism ([facility]/HCC) Kidney disease Lacunar infarction ([facility]/HCC) Neurologic disorder OA (osteoarthritis) JOSE RAMON (obstructive sleep apnea) Post menopausal syndrome Post-menopausal PVD (peripheral vascular disease) ([facility]) Thyroid cancer ([facility]) Well woman exam Current Outpatient Medications: acetaminophen (Tylenol 8 Hour) 650 MG ER tablet, Take by mouth., Disp: , Rfl: adalimumab (Humira) 40 MG/0.8ML Prefilled Syringe Kit prefilled syringe, 0.8 ml Subcutaneous, Disp:, Rfl: amoxicillin (Amoxil) 500 MG tablet, 4 [...] Rfl: 0 cholecalciferol (Vitamin D-3) 1.25 MG (38022 UT) capsule, Take 50,000 Units by mouth [...] mouth in the morning. Take with meals., Disp:, Rfl: levOCARNitine L-Tartrate (L-Carnitine) 500 MG capsule, [...] tablet, See Instructions, 5 mg Chewed, Refills(s) 0,Disp: , Rfl: Mounjaro 2.5 MG/0.5ML solution pen-injector, , Disp: , Rfl: Multiple Vitamin (Multi Vitamin) tablet, 1 (one) time each day at the same time., Disp: , Rfl: Selma-3 Fatty Acids (Fish Oil) 1200 MG capsule [...] POLYPECTOMY 2007 COLONOSCOPY 2018 CYSTOSCOPY x2 EGD 2009 KNEE ARTHROSCOPY W/ MENISCAL REPAIR Right 2011 KNEE ARTHROSCOPY W/ MENISCAL REPAIR Left 2013 KNEE SURGERY Left 2014 arthroscopy MR ANGIOGRAM NECK W AND WO IV CONTRAST 10/27/2019 MR ANGIOGRAM NECK W AND WO IV CONTRAST PARTIAL HIP ARTHROPLASTY PARTIAL HYSTERECTOMY 01/22/2022 PELVIC RECON / BLADDER SLING / PARTIAL HYSTERECTOMY - DR BEVERLY THYROIDECTOMY 2003 thyroidectomy with ablation TOTAL ABDOMINAL HYSTERECTOMY 2021 [...] has consented to proceed. documented in this encounterCenterpoint Medical [id number] History of Present illness Narrative* Aamir James MD - 06/09/2024 1:15 PM EST Images from the original note were not [...] as well as the risks, benefits, and alternatives.The risks of infection, scarring, bleeding, prolonged wound healing, incomplete removal, allergy toanesthesia or meds, nerve injury, and recurrence were addressed.) [place] Protocol: Procedure explained and questions answered to [...] sodium bicarbonate Procedure Details: Biopsy accession number: [id number] Biopsy lab: [id number] Date of biopsy: 04/12/2024 Frozen section biopsy [...] lab where it was chromacoded and processed. Mohssections were prepared with serial tissue sections, stained, [...] Yes Was reconstruction performed by the same Mohs surgeon? No If no, what is the specialty of the surgeon who did the reconstruction? ENT facial plastics When was reconstruction performed? different day Antibiotics: Were antibiotics given on the day of surgery?: No When were antibiotics given? post-operative Indication for post-operative antibiotics: long duration of procedure cephalexin (Keflex) 500 MG capsule Take 1 capsule, by mouth, bid, 10 days Mohs Post Operative Type of repair: Referred for repair to Janeth Aguilar DO Wound Care: A pressure dressing was placed on the surgical wound. Post-operative instructions were given in writing and were reviewed with the patient. A follow-up appointment was made, and instructions were given to follow-up sooner if necessary. Related Procedures Ambulatory referral to ENT Next visit: 12/13/2024 documented in this encounterCenterpoint Medical [id number] NoteNurse Consultation Note Reason for Visit Pt here today for [...] tab(s), Oral, TID Methyl B-12, See Instructions Mounjaro 2.5 mg/0.5 [...] virus vaccine, inactivated 04/21/2022 Recorded SARS-CoV-2 (COVID-19) [id number] 04/21/2022 Recorded influenza virus vaccine, inactivated 03/15/2021 Recorded SARS-CoV-2 (COVID-19) mRNA BNT-162b2 vax 03/15/2021 Recorded 2022-09-17: [id number] SARS-CoV-2 (COVID-19) mRNA BNT-162b2 vax 08/08/2020 Given SARS-CoV-2 (COVID-19) mRNA BNT-162b2 vax 07/11/2020 Given zoster vaccine, inactivated 07/01/2019 Recorded zoster vaccine, inactivated 04/30/2019 Recorded influenza virus vaccine, inactivated 04/30/2019 [facility] NotePatient Education Cardiovascular Hypertension, Adult Hypertension is another name for high blood pressure. High blood pressure forces your heart to workharder to pump blood. This can cause problems [...] at each meal with low-fat (lean) proteins. Low- fat proteins includefish, chicken without skin, eggs, beans, and tofu. [...] Keep all follow-up visits. Medicines ??? Take omun-jmp-uyttipr and prescription medicines only as told by your doctor. Follow directionscarefully. ??? Do not skip doses of blood [...] ??? Hypertension is a (more content not included)...[facility] 04-12-2024 History of Present illness Narrative* Kateryna Chávez MD - 04/12/2024 11:30 AM EST Lesions: Location: nose and chin Duration: year [...] of bone, soft tissue, and skin Glabella [place] pearly papule Lesion biopsy Type of biopsy: [...] Visit: pending biopsy results documented in this encounterCenterpoint Medical [id number] Hospital Discharge instructions Patient Education 02/18/2024 13:24:16 Kidney Stones, Nlra-sh-Yjtu Kidney Stones Kidney stones are rock-like masses [...] Follow these instructions at home: Medicines Take fiqu-snz-fawmfwk and prescription medicines only as told by [...] provider. Document Revised: 12/26/2022 Document Reviewed: 12/26/2022 [employer] Patient Education 2023 Kuapay. Follow Up Care 08/17/2023 12:32:41 With:EDWINA MOSLEY, Bertha Vu, URL Address: [address] [place] [address]- When:1 year Comments:ORION granger [facility] Fara 10-03-2024 NotePatient Education Urology Kidney Stones Kidney stones are [...] these instructions at home: Medicines ? Take bglj-bds-rgxxzce and prescription medicines only as told by [...] provider. Document Revised: 12/26/2022 Document Reviewed: 12/26/2022 Elsevier Patient Education ? 2023 Ku[employer].[facility] 08-17-2023 Hospital Discharge instructions Patient Education 08/17/2023 12:31:38 Acute Urinary Retention, Female Acute Urinary Retention, Female Acute urinary retention is a condition in which a person is unable to pass urine or can only pass alittle urine. This condition can happen suddenly and [...] Follow these instructions at home: Medicines Take fbgn-ujp-yauxzqn and prescription medicines only as told by your health care provider. Avoid certain medicines, such as decongestants, antihistamines, and some prescription medicines. Do not take any medicine unless your health care provider approves. If you were prescribed an antibiotic medicine, take it as told by your health care provider. Do notstop using the antibiotic even if you start to feel better. General instructions Do not use any products that contain nicotine or tobacco. These products include cigarettes, chewing tobacco, and vaping devices, such as e-cigarettes. If you need help quitting, ask your health careprovider. Drink enough fluid to keep your urine [...] to pass urine or can only pass alittle urine. If left untreated, this can result [...] provider. Document Revised: 01/23/2021 Document Reviewed: 01/23/2021 [employer] Patient Education 2022 Kuapay. Follow Up Care 02/13/2023 10:34:47 With:EDWINA MOSLEY, Bertha Vu, URL Address: [facility] [address], [place] [phone] When: Unknown Comments:6 mos w/ LASHONDA and TIM, nurse visit for PVR in 1 month [facility]09-29-2023 Hospital Discharge instructions Patient Education 02/13/2023 10:30:11 Urinary Tract Infection, Adult, Tgno-ns-Dknz Urinary Tract Infection, Adult A urinary tract infection (UTI) is an infection of any part of the urinary tract. The urinary tractincludes: The kidneys. The ureters. The bladder. The [...] Follow these instructions at home: Medicines Take xqof-son-cbvccor and prescription medicines only as told by [...] a female. Use each tissue one time whenyou wipe. Drink enough fluid to keep your [...] provider. Document Revised: 12/14/2020 Document Reviewed: 12/14/2020 [employer] Patient Education 2022 Kuapay. 02/13/2023 10:30:09 Dietary Guidelines to Help Prevent [...] about 300 mg of calcium at each meal.Foods that contain 200 500 mg of calcium a serving include: ?8 oz (237 mL) of milk, jvmjdpx-heiheopksjll-kppwk milk, and calcium- fortifiedfruit juice. Calcium-fortified means that calcium has been [...] the table and allow each person to addhis or her own salt to taste. Use vegetable protein, such as beans, textured vegetable protein (TVP), or tofu, instead of meat inpasta, casseroles, and soups. Meal planning Eat less salt, if told by your dietitian. To do this: ?Avoid eating processed or pre-made food. ?Avoid eating fast food. Eat less animal protein, including cheese, meat, poultry, or fish, if told by your dietitian. To dothis: ?Limit the number of times you have [...] ?Spinach (cooked), rhubarb, beets, sweet potatoes, and Rwandan chard. ?Peanuts. ?Potato chips, uzbek fries, and baked potatoes with skin on. ?Nuts and nut products. ?Chocolate. If you regularly take a diuretic medicine, make sure to eat at least 1 or 2 servings of fruits or vegetables that are high in potassium each day. These include: ?Avocado. ?Banana. ?Gibson, prune, carrot, or tomato juice. ?Baked potato. [...] taking daily supplements. You may be told thefollowing depending on your health and the cause of your kidney stones: ?Not to take supplements with vitamin C. ?To take a calcium supplement. ?To take a daily probiotic supplement. ?To take other supplements such as magnesium, fish oil, or vitamin B6. Take hdsb-qdg-wrnlxrk and prescription medicines only as told by [...] Casseroles. Pizza. Lasagna. Frozen meals. Potato chips. Upper Sorbian fries. The items listed above may not be a complete list of foods and beverages you should limit. Contact a dietitian for more information. What foods should I avoid? Talk to your dietitian about specific foods you should avoid based on the type of kidney stones youhave and your overall health. Fruits Grapefruit. The item listed above may not be a complete list of foods and beverages you should avoid. Contact adietitian for more information. Summary Kidney stones are [...] provider. Document Revised: 01/13/2022 Document Reviewed: 01/13/2022 Else[employer]Formul[employer] Patient Education 2022 Ku[employer]ay. Follow Up Care 12/05/2022 12:34:13 With:EDWINA MOSLEY, Bertha Vu, TEODORO Address: [facility] [address] , [place] [address]- When:Within 6 Month(s) Comments:w/PVR [facility] 03-14-2023 Hospital Discharge instructions Patient Education 07/29/2022 09:47:03 [...] With:Bertha BLAND Address: [facility] [address] , [place] [address]- Business (1) When:11/28/2022 09:46:34 [facility]03-09-2023 Evaluation note* Encounter Date Diagnosis Assessment Notes Treatment Notes Treatment Clinical Notes Jul, Crohns disease (ICD-10 - K50.90) Continue Humira as directed [facility] Other 05-03-2022 Evaluation note* Encounter Date Diagnosis Assessment Notes Treatment Notes Treatment Clinical Notes September, Ulcerative colitis (ICD-10 - K51.90) [facility] Other 04-20-2022 History general Narrative - Reported* Type Description Date Medical History thyroid cancer Medical History thyroidectomy Medical History appendectomy Medical History inflammation of colon Medical History hypertension Medical History STROKE 09/04 Surgical History appendectomy Surgical History thyroidectomy 2002 Hospitalization History see above [facility] Other 11-16-2021 Evaluation note* Encounter Date Diagnosis Assessment Notes Treatment Notes Treatment Clinical Notes Mar, Ulcerative colitis (ICD-10 - K51.90) Continue Humira - start citrate free [facility] Other Evaluation + Plan note Future Appointments Appointment Date:07/22/2022 03:00:00 PM Scheduled Provider: Location:[facility] Appointment Type:Urology CALL PAT FT Appointment Date:07/29/2022 08:00:00 AM Scheduled Provider: Location:[facility] Appointment Type:Urology FT Appointment Date:07/29/2022 09:15:00 AM Scheduled Provider: Location:[facility] Appointment Type:Urology FT Diagnostic Tests Pending * Urine Culture [facility] App[facility]ments Appointment Date:11/17/2022 11:45:00 AM Scheduled Provider:Bertha BLAND MD Location:[facility] Appointment Type:URO Office Visit [facility] Evaluation + Plan note Future Appointments Appointment Date:11/17/2022 11:45:00 AM Scheduled Provider:Bertha BLAND MD Location:[facility] Appointment Type:URO Office Visit Diagnostic Tests Pending * Urine Culture [facility] App[facility]ments Appointment Date:12/05/2022 11:00:00 AM Scheduled Provider:Bertha BLAND MD Location:[facility] Appointment Type:URO Office Visit Diagnostic Tests Pending * Urine Culture [facility] Appointments Appointment Date:12/05/2022 11:00:00 AM Scheduled Provider:Bertha BLAND MD Location:[facility] Appointment Type:URO Office Visit [facility] evaluation + Plan note Future Appointments Appointment Date:05/13/2023 02:00:00 PM Scheduled Provider: Location:[facility] Appointment Type:FM Medicare Wellness Subsequent Appointment Date:08/17/2023 10:45:00 AM Scheduled Provider:Ber[facility] BLAND MD [facility] Office Visit [facility] evaluation + Plan note Future Appointments Appointment Date:08/17/2023 10:45:00 AM Scheduled Provider:Bertha BLAND MD [facility] Type:URO Office Visit Appointment Date:05/13/2024 01:00:00 PM Scheduled Provider: Location:[facility] Appointment Type: Medicare Wellness [facility] Future Appointments Appointment Date:09/14/2023 10:00:00 AM Scheduled Provider: Location:[facility] Appointment Type:URO Nurse Visit Appointment Date:02/19/2024 10:45:00 AM Scheduled Provider:Bertha BLAND MD [facility] Type:URO Office Visit Appointment Date:05/13/2024 01:00:00 PM Scheduled Provider: Location:[facility] Appointment Type: Medicare Wellness Subsequent [facility] evaluation + Plan note Future Appointments Appointment Date:10/05/2023 11:20:00 AM Scheduled Provider:Bambi Reynolds Location:[facility] Appointment Type:FM Open Appointment Date:02/19/2024 10:45:00 AM Scheduled Provider:Bertha BLAND MD [facility] Type:URO Office Visit Appointment Date:05/05/2024 01:00:00 PM Scheduled Provider: Location:[facility] Appointment Type: Medicare Wellness Subsequent [facility] evaluation + Plan note Future Appointments Appointment Date:02/19/2024 10:45:00 AM Scheduled Provider:Bertha BLAND MD [facility] App[facility] Type:URO Office Visit Appointment Date:05/05/2024 01:00:00 PM Scheduled Provider: Location:[facility] Appointment Type:FM Medicare Wellness Subsequent Diagnostic Tests Pending * Urine Culture 01/21/24 [facility] evaluation + Plan note Future Appointments Appointment Date:05/05/2024 01:00:00 PM Scheduled [facility] Medicare Wellness Subsequent Appointment Date:02/17/2025 11:00:00 AM Scheduled Provider:Bertha BLAND MD [facility] Type:[facility]O Office Visit [facility] evaluation + Plan note Future Appointments Appointment Date:08/29/2024 10:00:00 AM Scheduled Provider:Bambi Reynolds Location:[facility] Appointment Type: Open Appointment Date:02/17/2025 11:00:00 AM Scheduled Provider:Bertha BLAND MD [facility] Type:URO Office Visit Appointment Date:05/16/2025 01:00:00 PM Scheduled Provider: Location:[facility] Appointment Type: Medicare Wellness Subsequent [facility] evaluation noteNo assessment information available [facility] Work Phone: evaluation noteNo InformationNort Cafe [employer] Other evalujttuf note* Diagnosis Onset Date Resolution Status Crohn disease acute [facility] Work Phone: evalulrmxf note* Diagnosis Melanocytic nevi of face- Primary [...] x disease) acute August 15, 2024 10:31am [facility] Work Phone: Evaluation note* Diagnosis Well woman exam with routine gynecological exam Routine gynecological examination Encounter for screening mammogram for malignant neoplasm of breast documented in this encounter [facility] HealthcareEvaluation note* Diagnosis Cerebrovascular accident (CVA), unspecified mechanism (CMS/HCC)- Primary Spasticity Abnormal involuntary movements Lumbosacral radiculopathy Thoracic or lumbosacral neuritis or radiculitis, unspecified Degeneration of intervertebral disc of lumbar region, unspecified whether pain present documented in this encounter [facility] HealthcareEvaluation note* Diagnosis S/P total knee arthroplasty, left- Primary S/P TKR (total knee replacement), right Right knee pain, unspecified chronicity Left knee pain, unspecified chronicity Gait disturbance, post-stroke documented in this encounter [facility] HealthcareEvaluation note* Diagnosis Melanocytic nevus of trunk- Primary Benign neoplasm of skin of trunk, except scrotum Seborrheic keratosis History of basal cell carcinoma Personal history of other malignant neoplasm of skin Androgenic alopecia Other alopecia documented in this encounter [facility] HealthcareHistory and physical note Author Cesar Estrada [facility] March 12, 2023 9:42am Note Date/Time March 12, 2023 9 :42am [facility] [address] [place] [address] Gastroenterology H&P Signed Patient: Gia Ruiz MR#: [id number] : 1950 Acct:[id number] Age/Sex: 73 / F Adm Date: 3 Loc: Room: Type: [facility] Attending Dr: Cesar Estrada MD Copies to: Cesar Estrada MD Bambi Shastavale Davisab FIELD DIRECTOR~ Date of Service: 03/12/2023 HISTORY & PHYSICAL: [...] <Electronically signed by Cesar Estrada MD> 03/12/2342 [facility] Work Phone: History and physical note Author Cesar Estrada [facility] March 31, 2023 1:33pm Note Date/Time March 31, 2023 1:33pm [facility] [address] [place] [address] Gastroenterology H&P Signed Patient: Gia Ruiz MR#: [id number] : 1950 Acct:[id number] Age/Sex: 73 / F Adm Date: 3 Loc: Room: Type: [facility] Attending Dr: Cesar Estarda MD Copies to: MD Bambi Mcleod CNP~ Date of Service: 03/31/2023 HISTORY & PHYSICAL: [...] By: <Electronically signed by Cesar Estrada MD> 03/31/231332 [facility] Work Phone: History general Narrative - Reported* Type Description Date Medical History thyroid cancer Medical History thyroidectomy Medical History appendectomy Medical History inflammation of colon Medical History hypertension Medical History STROKE 09/04 Surgical History appendectomy Surgical History thyroidectomy 2001 Hospitalization History see above [facility] Other Hospital course Narrative No data available for this section [facility] Discharge instructions No data available for this section [facility] Discharge instructions Additional Instructions DISCHARGE INSTRUCTIONS [...] problems. -Follow up with PCP. -Office number [phone].[facility] Work Phone: [facility] Discharge instructions Additional Instructions DISCHARGE INSTRUCTIONS FOR [...] problems. -Follow up with PCP. 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 August 15, 2024 10:31am Family History No Family History Records Found Relationship Condition Age at Onset Recorded Date/T [...] Unknown Diabetes mellitus Unknown Unknown Advance Directives No Advanced Directives Records Found Advance Directive Response Recorded Date/ Time Advance [...] labella Specialty Diagnoses / Procedures Referred By Contac t Referred To Contact Otolaryngology Diagnoses Basal cell carcinoma (BCC) of glabella Procedures [place] OFFICE/OUTPATIENT NEW HIGH MDM 60 MINUTES Aamir James MD [address] [place] [address] Phone: tel: fax: Kevin Aguilar, [address] [place] [address] Phone: tel: fax: Referral ID Status Reason Start Date Expiration Date V isits Requested Visits Authorized [id number] Closed Specialty Services Required 06/09/2024 12/06/2024 1 1 Reason Comments Post-op Post op Mohs repair Reason Onset Date Comments Dentist 06/23/2024 Reason Comments Post-op 1 month bettye Reason Comments Well Women Visit Reason Comments Follow-up Reason Comments Skin Check Reason Onset Date Comments DENTAL APPT 01/11/2025 Care Teams (unrecognized sec tion and content) Team Status: Inactive Member Role Status Dates Estefanía Sutherland MD Primary Care Provider Active Adriana Cárdenas Jr, DO Attending Provider Active Team Status: Active Member Role Status Dates Estefanía Sutherland MD Primary Care Provider Active Team Status: Active Member Role Status Dates Bambi Browning CAMBERING MACHINE OPERATOR-C Primary Care Provider Active Team Status: Inactive Member Role Status Dates Adriana Cárdenas Jr, DO Attending Provider Active Bambi Browning NP-C Primary Care Provider Active Team Status: Inactive Member Role Status Dates Bambi Browning NP-C Primary Care Provider Active Adriana Cárdenas Jr, DO Attending Provider Active Team Status: Inactive Member Role Status Dates Cesar Estrada MD Attending Provider Active Bambi Browning CAMBERING MACHINE OPERATOR-C Primary Care Provider Active Team Status: Inactive [...] Team Status: Active Member Role Status Dates Mile Sanchez MD Primary Care Provider Active Team Status: Inactive Member Role Status Dates Mile Sanchez MD Primary Care Provider Active Start: September 30, 2023 End: September 30, 2023 Rosalinda Bernstein PA-C Attending Provider Active S tart: September 30, 2023 End: September 30, 2023 Team Status: Inactive Member Role Status Dates Mile Sanchez MD Primary Care Provider Active Start: October 01, 2023 End: October 01, 2023 Rosalinda Bernstein PA-C Attending Provider Active S tart: October 01, 2023 End: October 01, 2023 Supervisor Contact Lens Relationship Specialty Start Date End Date Mile Sanchez MD [address] [place] [id number] PCP - General Family Medicine 11/26/22 Supervisor Contact Lens Relationship Specialty Start Date End Date Mile Sanchez MD [address] [place] [phone] PCP - General Family Medicine 11/26/22 Supervisor Contact Lens Relationship Specialty Start Date End Date Mile Sanchez MD [address] [place] [phone] PCP - General Family Medicine 11/26/22 Supervisor Contact Lens Relationship Specialty Start Date End Date Mile Sanchez MD [address] [place] [phone] PCP - General Family Medicine 11/26/22 Supervisor Contact Lens Relationship Specialty Start Date End Date Mile Sanchez MD [address] [place] [address] PCP - General Family Medicine 11/26/22 Supervisor Contact Lens Relationship Specialty Start Date End Date Mile Sanchez MD [address] [place] [phone] PCP - General Family Medicine 11/26/22 Supervisor Contact Lens Relationship Specialty Start Date End Date Mile Sanchez MD [address] [place] [phone] PCP - General Family Medicine 11/26/22 Supervisor Contact Lens Relationship Specialty Start Date End Date Mile Sanchez MD [address] [place] [phone] PCP - General Family Medicine 11/26/22 Supervisor Contact Lens Relationship Specialty Start Date End Date Mile Sanchez MD [address] [place] [phone] PCP - General Family Medicine 11/26/22 Supervisor Contact Lens Relationship Specialty Start Date End Date Mile Sanchez MD [address] [place] [phone] PCP - General Family Medicine 11/26/22 Supervisor Contact Lens Relationship Specialty Start Date End Date Mile Sanchez MD [address] [place] [phone] PCP - General Family Medicine 11/26/22 Team Status: Inactive Member Role Status Dates Cesar Estrada MD Attending Provider Active S tart: August 15, 2024 End: August 15, 2024 Mile Sanchez MD Primary Care Provider Active Start: August 15, 2024 End: August 15, 2024 Supervisor Contact Lens Relationship Specialty Start Date End Date Mile Sanchez MD [address] [place] [address] PCP - General Family Medicine 11/26/22 Supervisor Contact Lens Relationship Specialty Start Date End Date Mile Sanchez MD [address] [place] [phone] PCP - General Family Medicine 11/26/22 Supervisor Contact Lens Relationship Specialty Start Date End Date Mile Sanchez MD [address] [place] [phone] PCP - General Family Medicine 11/26/22 Supervisor Contact Lens Relationship Specialty Start Date End Date Mile Sanchez MD [address] [place] [address] PCP - General Family Medicine 11/26/22 Team Status: Inactive Member Role Status Dates Mile Sanchez MD Primary Care Provider Active Start: September 07, 2024 End: September 07, 2024 Rosalinda Bernstein PA-C Attending Provider Active S tart: September 07, 2024 End: September 07, 2024 Cesar Estrada MD Other Provider Active Start : September 07, 2024 End: September 07, 2024 Supervisor Contact Lens Relationship Specialty Start Date End Date Mile Sanchez MD [address] [place] [address] PCP - General Family Medicine 11/26/22 Supervisor Contact Lens Relationship Specialty Start Date End Date Mile Sanchez MD [address] [place] [address] PCP - General Family Medicine 11/26/22 Supervisor Contact Lens Relationship Specialty Start Date End Date Mile Sanchez MD [address] [place] [address] PCP - General Family Medicine 11/26/22 Goals (unrecognized section and content) Goals may be documented in a n alternate section INFORMATION SOURCE (unrecogn ized section and content) DATE CREATED AUTHOR 08/21/2022 [facility] DATE CREATED AUTHOR AUTHOR'S ORGANIZ ATION [facility] DATE CREATED AUTHOR AUTHOR'S ORGANIZ ATION 05/20/2024 [facility] DATE CREATED AUTHOR AUTHOR'S ORGANIZ ATION 06/01/2024 [facility] DATE CREATED AUTHOR AUTHOR'S ORGANIZ ATION 06/04/2024 [facility] DATE CREATED AUTHOR AUTHOR'S ORGANIZ ATION 10/04/2024 [facility] DATE CREATED AUTHOR AUTHOR'S ORGANIZ ATION 12/03/2024 [facility] DATE CREATED AUTHOR AUTHOR'S ORGANIZ ATION 01/29/2025 [facility] FOR RECORDS PERTAINING TO PATIENTS WHO ARE [...] BE BASED ON THE PRIMARY CLINICAL RECORDS. [employer] provides no warranty or guarantee of the accuracy or completeness of information in this document.
== END 2025-02-07 15:24 | disposition home or self-care (01) ==
LOC: RAD 15:24
PROVIDERS: PCP Family Medicine; Visit Provider Urology
DX: N20.0 Calculus of kidney (principal)
CPT/HCPCS: 74018

== ENCOUNTER 2025-02-27 11:08 | Outpatient (OUT) | payer MEDICARE, BC, SELFPAY ==
--- OUTSIDE RECORDS SUMMARY | 2025-02-27 11:18 | XMS_ITS | CCD ---
Author Organization [facility] Care Team Providers Care Steam Pipe Fitter Name Role Phone Dominick Hester Unavailable MD Estefanía Sutherland Primary Care Provider DO Adriana Cárdenas Jr Attending Provider ESTEFANÍA SUTHERLAND Primary Care Physician ESTEFANÍA SUTHERLAND Primary Care Physician Cesar Estrada [...] DR DEMARCO Admitting Unavailable ZIEBER, DR NICOLE Vu Consulting [...] ., DR ESTEFANÍA Lima Primary Care Unavailable FRANKLIN, DR DOMINICK Cheng Consulting Unavailable JHON ., DR DEMARCO Consulting Unavailable SUTHERLAND ., DR ESTEAFNÍA Lima Attending Unavailable SUTHERLAND ., DR ESTEFANÍA [...] Consulting Unavailable Bambi Browning Primary Care Physician [phone] DO Adriana Cárdenas Jr Attending Provider Nam, GINA Vegas Primary Care Provider MD Cesar Estrada Attending Provider GINA Browning Primary Care Provider MD Cesar Estrada Attending Provider GINA Browning Primary Care Provider [phone] GINA Browning Primary Care Provider MD Cesar Estrada Attending Provider MD Mile Sanchez Primary Care Provider HARITHA Bernstein Attending Provider Mile Sanchez MD Primary Care Provider Bertha BLAND Attending Unavailable Bambi Browning Attending Unavailable Bambi Browning Attending Unavailable Bambi Browning Attending Unavailable NamBamib waddell Attending Unavailable MICAH GOTTLIEB Attending Unavailable Bertha BLAND Attending Unavailable Nam, Bambi Cruz Admitting Unavailable Nam, Bambi Cruz Attending Unavailable Nam, Bambi Cruz Attending Unavailable Nam, Bambi Cruz Admitting Unavailable Oleksandr MOSLEY, Mile Lima Primary Care Provider Amandeep MG, Rosalinda Attending Provider Cesar Estrada MD Other Provider Cesar Estrada Consulting Unavailable Mile Sanchez Primary Care Unavailable Bernstein, Rosalinda Admitting Unavailable Bernstein, Rosalinda Attending Unavailable Oleksandr Mile E Primary Care Unavailable Bernstein, Rosalinda Admitting Unavailable Bernstein, Rosalinda Attending Unavailable LOWE, FLORES Attending Unavailable JAMESAAMIR Attending Unavailable MURCEK, KEVIN Rogers Attending Unavailable JAMESAAMIR Referring Unavailable MURCEK, KEVIN Rogers Referring Unavailable MURCEK, KEVIN Rogers Attending Unavailable MURCEK, KEVIN Rogers Attending Unavailable SAGE JO Attending Unavailable JR. JAY, ADRIANA Short Referring Unavaila ble MURCEK, KEVIN Rogers Attending Unavailable JHONROBERT Yadav Attending Unavailable LORY BUSCH Attending Unavailable ROSALINDA BERNSTEIN Attending Unavailable ROSALINDA BERNSTEIN Referring Unavailable PETKATERYNA DURAN Attending Unavailable SAGE JO Attending Unavailable JR. JAY, ADIRANA Short Referring Unavaila ble BRSAGE ZULUAGA Attending Unavailable JR. JAY, ADRIANA Short Referring Unavaila ble SULEMA JHA Attending Unavailable JAY, , ADRIANA Short Referring Unavaila ble LOWEFLORES Attending Unavailable SAGE JO Attending Unavailable JR. JAY, ADRIANA Short Referring Unavaila ble ROSALINDA BERNSTEIN Attending Unavailable PETKATERYNA DURAN Attending Unavailable Flores Brito APRN Attending Provider Bambi Gómez Primary Care Provider Nam, KNIT GOODS MENDER Bambi L Attending Unavailable Nam, KNIT GOODS MENDER Bambi Cruz Attending Unavailable Nam, KNIT GOODS MENDER Bambi Cruz Attending Unavailable Bertha BLAND Attending Unavailable Nam, KNIT GOODS MENDER Bambi L Admitting Unavailable Nam, KNIT GOODS MENDER Bambi L Attending Unavailable Nam, KNIT GOODS MENDER Bambi Cruz Attending Unavailable Allergies Allergy Classification Reported Allergen(s) Allergy Type Date of Onset Reaction(s) Facility (13 sources) Adhesive agent; Translations: [adhesive] Allergy to substance 02-07-20 [facility] (20 sources) Sulfamethoxazole / Trimethoprim; Translations: [sulfamethoxazole-t rimethoprim] Drug Allergy 11-27-19 Eruption of skin (disorder), Rash [facility] (11 sources) Sulfonamides (Antibiotic); Translations: [Sulfa (Sulfonamide Antibiotics)] Allergy to substance 11-25-19 Rash [facility] (9 sources) Acetaminophen; Translations: [acetaminophen] Drug Allergy 03-12-20 Hallucinating [facility] (9 sources) oxyCODONE; Translations: [oxycodone] Drug Allergy 03-12-20 Hallucinating [facility] (8 sources) Acetaminophen / oxyCODONE; Translations: [acetaminophen-oxyc odone] Drug Allergy Hallucinations (finding) [facility] (8 sources) Acetaminophen / HYDROcodone Drug Allergy 11-27-19 GI intolerance [facility] Healthcare Work Phone: (20 sources) Acetaminophen / oxyCODONE Drug Allergy 11-27-19 Hallucinations [facility] (19 sources) Wound Dressing Adhesive Drug Allergy 08-13-19 Rash [facility] (2 sources) No Known Medication Allergies; Translations: [No Known Medication Allergies] Propensity to adverse reactions (disorder) [facility] Repository Medications Current Medications Medication Drug Class(es) Dates Sig (Normalized) Sig (Original) 0.5 ML tirzepatide 20 MG/ML Auto-Injector [Mounjaro] (1 source) Start: 02-24-2025 Mounjaro 10 mg/0.5 mL subcutaneous solution 10 mg, Refills(s) 0 Start Date: 02/24/25 Status: Ordered Repeat number: 1 0.5 ML tirzepatide 5 MG/ML Auto-Injector [Mounjaro] [...] BID, # 6 cap(s), Refills(s) 0, Pharmacy: [facility]/pharmacy #[id number], 158, cm, 07/14/22 11:51:00 EST, Height/Length Dosing, 92, kg, 07/14/22 11:51:00 EST, Weight Dosing Start Date: 07/18/22 Status: Ordered Ascorbic Acid (20 sources) Vitamin C Start: 07-14-2022 Vitamin C Daily, Refills(s) 0 Start Date: 07/14/22 Status: Ordered Repeat number: 1 Start: 07-14-2022 Vitamin C Gabrielle y, Refills(s) 0 Start Date: 07/14/22 Status: Ordered Start: 05-05-2022 take 3 tablets by mo uth once daily in the morning ascorbic acid (V itamin C) 250 MG chewable tablet Active aspirin 81 mg delayed release oral tablet (20 sources) Platelet Aggregation Inhibitor, Nonsteroidal Anti-inflammatory Drug Start: 07-10-2022 End: 08-15-2024 take 1 tablet by mouth twice daily Aspirin 81 mg Tablet,Delayed Release (Dr/Ec) Discontinued 81 MG PO Twice daily 60 December 12, 2022 3:14pm August 15, 2024 11:01am Start: 05-05-2022 End: 12-12-2022 take 1 tablet by mouth once Aspirin 81 Activ e atorvastatin 20 mg oral tablet (20 sources) HMG-CoA Reductase Inhibitor Start: 05-05-2022 End: 03-30-2025 take 1 tablet by mouth once daily atorvastatin 20 mg Tab 20 mg = 1 tab(s), Oral, Daily, # 90 tab(s), Refills(s) 3, Pharmacy: [facility], 158, cm, 05/16/24 13:35:00 EST, Height/Length Dosing, 87.9, kg, 05/16/24 13:35:00 EST, Weight Dosing Start Date: 08/03/24 Status: Ordered Quantity: 90.0 Unit: tab(s) Repeat number: 4 Atorvastatin [place] cium Active bacillus coagulans [id number] unt / inulin 250 mg oral capsule (20 sources) Start: 11-24-2022 take 1 capsule by sd ut once daily at bedtime Bacillus Coagula ns-Inulin (PROBIOTIC-PREBIOTIC PO) Active Bacillus Coagula ns-Inulin (PROBIOTIC-PREBIOTIC PO) Probiotic Active Baclofen (20 sources) gamma-Aminobutyric Acid-ergic Agonist Start: 08-17-2023 BACLOFEN 10 MG TABLET BACLOFEN 10 MG TABLET Start Date: 08/17/23 Status: Ordered Repeat number: 1 Start: 08-17-2023 BACLOFEN 10 MG TABLET BACLOFEN 10 MG TABLET Start Date: 08/17/23 Status: Ordered Start: 05-05-2022 End: 06-27-2024 take 1 tablet by mouth twice daily Baclofen Active Biotin (20 sources) Start: 07-14-2022 biotin Oral, D aily, Refills(s) 0 Start Date: 07/14/22 Status: Ordered Start: 07-27-2017 End: 08-15-2024 take 1 tablet by mouth once daily in the morning Biotin 10,000 mcg Capsule Discontinued 1 TAB PO Every morning July 27, 2017 12:00am August 15, 2024 10:59am Biotin Active Calcium (8 sources) Phosphate Binder, Calcium Start: 05-16-2024 calc ium chew calcium chew Start Date: 05/16/24 Status: Ordered Repeat number: 1 Start: 05-16-2024 calcium chew c alcium chew Start Date: 05/16/24 Status: Ordered Start: 08-13-2023 Start: 08-13-2023 calcium Active PO August 13, 2023 12:00am Chlorthalidone (6 sources) Thiazide-like Diuretic Chlorthal idone Active cholecalciferol 0.125 mg oral tablet (20 sources) Vitamin D Start: 07-27-2017 Start: 07-27-2017 Cholecalcifero l (Vitamin D3) (Vitamin D3) 5,000 unit Tablet Active 81616 UNIT PO every week July 27, 2017 12:00am cholecalciferol (Vitamin D-3) 1.25 MG (41938 UT) capsule Take 50,000 Units by mouth 1 (one) time per week 1 capsule Orally twice a month Active ciprofloxacin 500 mg oral tablet (7 sources) Quinolone Antimicrobial Start: 01-21-2024 End: 01-28-2024 take 1 tablet by mouth every twelve hours ciprofloxacin 500 mg Tab 500 mg = 1 tab(s), Oral, q12hr, X 7 day(s), # 14 tab(s), Refills(s) 0, Pharmacy: [facility]/pharmacy #[id number], 158, cm, 01/21/24 10:49:00 EDT, Height/Length Dosing, 86.1, kg, 01/21/24 10:49:00 EDT, Weight Dosing Start Date: 01/21/24 Stop Date: 01/28/24 Status: Ordered Start: 07-14-2022 Cipro 500 mg T ab 500 mg = 1 tab(s), Oral, As Directed, Patient to take 1 tab the day before procedure and the 2nd tab the day of procedure once completed., # 2 tab(s), Refills(s) 0, [id number], cm, 07/14/22 11:51:00 EST, Height/Length Dosing, 92... Start Date: 07/14/22 Status: Ordered Co Q 10 (6 sources) Co Q 10 Active coenzyme Q-10 100 MG ER caps ule (20 sources) coenzyme Q-10 10 0 MG ER capsule Active coenzyme Q-10 10 0 MG ER capsule as directed Orally Active CoQ10 (14 sources) Start: 07-14-2022 CoQ10 Oral, Da jess, Refills(s) 0 Start Date: 07/14/22 Status: Ordered Repeat number: 1 Start: 07-14-2022 CoQ10 Oral, Da jess, Refills(s) 0 Start Date: 07/14/22 Status: Ordered Cranberry preparation (20 sources) Non-Standardized Food Allergenic Extract, Non-Standardized Plant Allergenic Extract Start: 02-13-2023 cranberry Refill(s) 0 Start Date: 02/13/23 Status: Ordered Repeat number: 1 Start: 02-13-2023 cranberry Refi ll(s) 0 Start Date: 02/13/23 Status: Ordered Start: 11-24-2022 take 1 tablet by vish th twice daily Start: 11-24-2022 take 1 tablet by vish [...] Daily, # 30 cap(s), Refills(s) 0, Pharmacy: [facility]/pharmacy #[id number], 158, cm, 12/05/22 11:44:00 EDT, Height/Length Dosing, 92.2, kg, 12/05/22 11:44:00 EDT, Weight Dosing Start Date: 12/05/22 Status: Ordered ferrous sulfate 325 mg oral tablet (20 sources) Start: 05-05-2022 take 1 tablet by mouth once daily take 1 tablet by mouth at mealti me ferrous sulfate 325 (65 Fe) MG tablet Take 325 mg by mouth in the morning. Take with meals. Active Fish Oils (20 sources) Start: 07-14-2022 take 1200 mg by mout h once daily Fish Oil 1,200 mg, Oral, Daily, Refill(s) 0 Start Date: 07/14/22 Status: Ordered Repeat number: 1 Start: 07-14-2022 take 1200 mg by mouth once elkin ly Fish Oil 1,200 mg, Oral, Daily, Refill(s) [...] take 1 tablet by mouth once daily Start: 08-06-2022 hydrochlorothi azide-losartan 25 mg-100 mg Tab See Instructions, 90 tab(s), Refill(s) 3, TAKE 1 TABLET DAILY, [facility], 158, cm, 05/16/24 13:35:00 EST, Height/Length Dosing, 87.9, kg, 05/16/24 13:35:00 EST, Weight Dosing Start Date: 08/03/24 Status: Ordered Quantity: 90.0 Unit: tab(s) Repeat number: 4 Start: 05-05-2022 End: 03-12-2023 take 1 tablet by mouth once daily in the morning Losartan-Hydrochlorothiazide 100-25 mg tablet Discontinued 1 TAB PO Every morning May 05, 2022 1:00am March 12, 2023 8:23am Iron (6 sources) Iron Active Iron 100 Plus (14 sources) Start: 07-14-2022 take 1 tablet by vish th once daily Iron 100 Plus 1 tab(s), Oral, Daily, Refill(s) 0 Start Date: 07/14/22 Status: Ordered Repeat number: 1 Start: 07-14-2022 take 1 tablet by vish [...] 09-18-2022 take 500 mg by mouth once gabrielle y L-Carnitine 500 mg, Oral, Daily, Refills(s) 0 Start Date: 09/18/22 Status: Ordered levothyroxine sodium 0.125 mg oral tablet (20 sources) l-Thyroxine Start: 12-28-2024 levothyroxine 125 mcg (0.125 mg) Tab See Instructions, TAKE 1 TABLET EVERY DAY, # 90 tab(s), Refills(s) 3, Pharmacy: [facility], 158, cm, 08/29/24 10:18:00 EDT, Height/Length Dosing, 86.7, kg, 08/29/24 10:18:00 EDT, Weight Dosing Start Date: 12/28/24 Status: Ordered Quantity: 90.0 Unit: tab(s) Repeat number: 1 Start: 04-04-2024 take 1 tablet by vish th once daily levothyroxine 125 mcg (0.125 mg) Tab 125 mcg = 1 tab(s), Oral, Daily, # 90 tab(s), Refills(s) 1, Pharmacy: [facility], 158, cm, 03/15/24 15:36:00 EDT, Height/Length Dosing, 87.9, kg, 03/15/24 15:36:00 EDT, Weight Dosing Start Date: 04/04/24 Status: Ordered Start: 11-05-2023 take 1 tablet by vish th once daily levothyroxine 125 mcg (0.125 mg) Tab 125 mcg = 1 tab(s), Oral, Daily, # 90 tab(s), Refills(s) 1, Pharmacy: [facility], 158, cm, 10/05/23 11:25:00 EDT, Height/Length Dosing, 92.3, kg, 10/05/23 11:25:00 EDT, Weight Dosing Start Date: 11/05/23 Status: Ordered Start: 08-12-2023 take 1 tablet by vish th once daily levothyroxine 125 mcg (0.125 mg) Tab 125 mcg = 1 tab(s), Oral, Daily, # 90 tab(s), Refills(s) 0, Pharmacy: [facility], 159, cm, 05/13/23 14:24:00 EST, Height/Length Dosing, 95.1, kg, 05/13/23 14:24:00 EST, Weight Dosing Start Date: 08/12/23 Status: Ordered Start: 04-27-2023 take 1 tablet by vish th once daily levothyroxine 125 mcg (0.125 mg) Tab 125 mcg = 1 tab(s), Oral, Daily, # 90 tab(s), Refills(s) 0, Pharmacy: [facility], 158, cm, 02/13/23 9:31:00 EDT, Height/Length Dosing, 92.2, kg, 02/13/23 9:31:00 EDT, Weight Dosing Start Date: 04/27/23 Status: Ordered Start: 03-12-2023 take 1 tablet by vish once daily Start: 11-11-2022 take 1 tablet by vish th once daily levothyroxine 125 mcg (0.125 mg) Tab 125 mcg = 1 tab(s), Oral, Daily, # 90 tab(s), Refills(s) 1, Pharmacy: [facility], 158, cm, 09/18/22 10:23:00 EDT, Height/Length [...] mg oral tablet (20 sources) l-Triiodothyronine Start: 06-08-2024 take 1 tablet by mouth once daily liothyronine 5 mcg Tab 5 mcg = 1 tab(s), Oral, Daily, # 90 tab(s), Refills(s) 4, Pharmacy: [facility], 158, cm, 05/16/24 13:35:00 EST, Height/Length Dosing, 87.9, kg, 05/16/24 13:35:00 EST, Weight Dosing Start Date: 06/08/24 Status: Ordered Quantity: 90.0 Unit: tab(s) Repeat number: 5 Start: 10-09-2023 take 1 tablet by vish th once daily liothyronine 5 mcg Tab 5 mcg = 1 tab(s), Oral, Daily, # 90 tab(s), Refills(s) 4, Pharmacy: [facility], 158, cm, 10/05/23 11:25:00 EDT, Height/Length Dosing, 92.3, kg, 10/05/23 11:25:00 EDT, Weight Dosing Start Date: 10/09/23 Status: Ordered Start: 07-15-2023 take 1 tablet by vish th once daily liothyronine 5 mcg Tab 5 mcg = 1 tab(s), Oral, Daily, # 90 tab(s), Refills(s) 0, Pharmacy: [facility], 159, cm, 05/13/23 14:24:00 EST, Height/Length Dosing, 95.1, kg, 05/13/23 14:24:00 EST, Weight Dosing Start Date: 07/15/23 Status: Ordered Start: 07-10-2022 take 1 ug by mouth once daily liothyronine 5 mcg Tab mcg tab(s), Oral, Daily, Refills(s) 0 Start Date: 07/10/22 Status: Ordered Start: 05-05-2022 take 1 tablet by vish th once daily in the morning losartan potassium 100 mg oral tablet (8 sources) Angiotensin 2 Receptor Michi Start: 07-10-2022 take 1 mg by mouth once daily losartan 100 mg Tab mg tab(s), Oral, Daily, Refills(s) 0 Start Date: 07/10/22 Status: Ordered Losartan Potassi um Active Magnesium (18 sources) Start: 07-27-2017 take 2 tablets by mouth once d aily at bedtime Start: 07-27-2017 take 2 tablets by mo ut once daily at bedtime Magnesium 250 mg [...] 30 day(s) Active magnesium gluconate 500 mg oral tablet (20 sources) Start: 07-14-2022 take 1 mg by mouth twice daily magnesium gluconate 500 mg oral tablet mg tab(s), Oral, BID, Refills(s) 0 Start Date: 07/14/22 Status: Ordered Repeat number: 1 Melatonin (20 sources) Start: 07-14-2022 melatonin Once [...] 1 tablet by mouth three times daily MetFORMIN (Eqv-Glucophage XR) 500 mg oral tablet, extended release See Instructions, TAKE 1 TABLET 3 TIMES A DAY, # 270 tab(s), Refills(s) 1, Pharmacy: [facility], 158, cm, 08/29/24 10:18:00 EDT, Height/Length Dosing, 86.7, kg, 08/29/24 10:18:00 EDT, Weight Dosing Start Date: 11/04/24 Status: Ordered Quantity: 270.0 Unit: tab(s) Repeat number: 2 Start: 07-24-2017 take 1 mg by mouth once daily metformin 500 mg ER Tab mg tab(s), Oral, Daily, Refills(s) 0 Start Date: 07/10/22 Status: Ordered take 3 tablets by mo uth once daily metFORMIN (Glucophage) 500 MG tablet Take 3 tablets every day by oral route for 90 days. Active Metformin tid No t-Taking Metformin tid Ac tive Methyl B-12 (20 sources) Start: 09-18-2022 Methyl B-12 Se e Instructions, 5 mg Chewed, Refills(s) 0 Start Date: 09/18/22 Status: Ordered Repeat number: 1 Start: 09-18-2022 Methyl B-12 Se e Instructions, 5 mg Chewed, Refills(s) 0 Start Date: 09/18/22 Status: Ordered Start: 07-27-2017 Start: 07-27-2017 Methyl B-12 Ac tive 5 [...] Start: 03-31-2023 take 1 tablet by vish th once daily Multivitamin Active 1 TAB PO [...] morning July 26, 2017 11:00pm Multivitamin Tablet (3 sources) Start: 03-31-2023 take 1 tablet by mouth once da jess Start: 03-31-2023 take 1 tablet by vish th once daily Multivitamin Tablet Active 1 TAB PO Daily March 31, 2023 1:00am Multivitamins (6 sources) Multivitamins as directed Orally Active [place] 1-Lfo-Eir-Fish Oil (Fish Oil) 1,200 (144-216) mg Capsule (8 sources) Start: 03-12-2023 take 1 capsule by mouth three times daily Start: 03-12-2023 take 1 capsule by mo uth three times daily [place] 6-Sux-Gnv-Fish Oil (Fish Oil) 1,200 (144-216) mg Capsule Active 1 CAP PO Three times daily March 11, 2023 11:00pm Start: 03-12-2023 take 1 capsule by mo uth three times daily [place] 8-Mru-Xrh-Fish Oil (Fish Oil) 1,200 (144-216) mg Capsule Active 1 CAP PO Three times daily March 12, 2023 12:00am [place]-3 Fatty Acids (Fish Oi l) 1200 MG capsule delayed-release (20 sources) Start: 07-14-2022 [place]-3 Fatty Acids (Fish Oil) 1200 MG capsule delayed-release Take by mouth 07/14/2022 Active Start: 07-14-2022 [place]-3 Fatty Acids (Fish Oil) 1200 MG capsule delayed- release Take by mouth. 07/14/2022 Active omeprazole 20 mg delayed release oral capsule (20 sources) Proton Pump Inhibitor Start: 08-30-2024 omeprazole 20 mg Cap -DR See Instructions, TAKE 1 CAPSULE DAILY, # 90 cap(s), Refills(s) 4, Pharmacy: [facility], 158, cm, 08/29/24 10:18:00 EDT, Height/Length Dosing, 86.7, kg, 08/29/24 10:18:00 EDT, Weight Dosing Start Date: 08/30/24 Status: Ordered Quantity: 90.0 Unit: cap(s) Repeat number: 5 Start: 07-24-2017 End: 08-13-2023 take 1 capsule by mouth once daily in the morning polysaccharide iron complex 150 mg oral capsule (3 sources) Start: 10-05-2023 take 1 capsule by mouth once daily Ferrex-150 oral capsule 150 mg = 1 cap(s), Oral, Daily, Refills(s) 0 Start Date: 10/05/23 Status: Ordered pregabalin 50 mg oral capsule (11 sources) Start: 02-24-2025 pregabalin 50 mg Cap 50 mg = 1 cap(s), Refills(s) 0 Start Date: 02/24/25 Status: Ordered Repeat number: 1 Start: 10-12-2024 take 1 capsule by mouth twice daily probiotic (4 sources) probiotic Active probiotic with prebiotic (2 sources) Start: 05-16-2024 probiotic with prebiotic probiotic with prebiotic Start Date: 05/16/24 Status: Ordered Repeat number: 1 Start: 05-16-2024 probiotic with prebiotic probiotic with prebiotic Start Date: 05/16/24 Status: Ordered sulfamethoxazole 800 mg / trimethoprim 160 mg oral tablet (2 sources) Dihydrofolate Reductase Inhibitor Antibacterial, Sulfonamide Antimicrobial Start: 10-08-2022 End: 10-18-2022 Bactrim D.S. 800 mg-160 mg Tab 1 tab(s), Oral, BID for 10 day(s), 20 tab(s), Refill(s) 0, [facility]/pharmacy #[id number], 158, cm, 09/18/22 10:23:00 EDT, Height/Length Dosing, 96.5, kg, 09/18/22 10:23:00 EDT, Weight Dosing Start Date: 10/08/22 Stop Date: 10/18/22 Status: Ordered Tirzepatide (3 sources) Start: 08-15-2024 Start: 08-15-2024 Tirzepatide (M ounjaro) 5 mg/0.5 mL pen injector Active 5 MG SUBCUT every week August 15, 2024 12:00am Tirzepatide (Mounjaro) 5 MG/0.5ML solution auto-injector (20 sources) inject 5 mg by subcutaneous injection every week Tirzepatide (Mounjaro) 5 MG/0.5ML solution auto-injector Inject 5 mg under the skin 1 (one) time per week Active traMADol hydrochloride 50 mg oral tablet (20 sources) Opioid Agonist Start: 02-14-20 take 1 tablet by mouth every twelve [...] Active ubidecarenone 200 mg oral ca psule (12 sources) Start: 05-05-2022 Viactiv Soft Calcium Chews (10 sources) Start: 02-13-2023 Viactiv Soft C alcium Chews Start Date: 02/13/23 Status: Ordered Start: 07-14-2022 Viactiv Soft C alcium Chews 250 mg, Oral, Refill(s) 0 Start Date: 07/14/22 Status: Ordered Start: 07-14-2022 Viactiv Soft C alcium Chews Refill(s) 0 Start Date: 07/14/22 Status: Ordered Vitamin D (6 sources) Vitamin D Active Vitamin D3 (14 sources) Start: 07-14-2022 Vitamin D3 50 mcg, Oral, Thursday, Refills(s) 0 Start Date: 07/14/22 Status: Ordered Repeat number: 1 Start: 07-14-2022 Vitamin D3 50 mcg, Oral, Thursday, Refills(s) 0 Start Date: 07/14/22 Status: Ordered Start: 07-14-2022 Vitamin D3 Ref ills(s) 0 Start Date: 07/14/22 Status: Ordered Zinc (18 sources) Start: 07-14-2022 take 1 mg by mouth o nce daily Zinc mg, Oral, Daily, Refills(s) 0 Start Date: 07/14/22 Status: Ordered Repeat number: 1 Start: 07-14-2022 take 1 mg by mouth once daily Zinc mg, Oral, Daily, Refills(s) 0 Start Date: 07/14/22 Status: Ordered Zinc Active ZINC CITRATE (12 sources) Start: 05-05-2022 Start: 05-05-2022 Zinc Citrate 1 6.7 mg [...] 12:00am December 12, 2022 3:11pm Start: 07-14-2022 take 1 mg by mouth e very eight hours acetaminophen 650 mg oral tablet, extended release mg tab(s), Oral, q8hr, Refills(s) 0 Start Date: 07/14/22 Status: Ordered Repeat number: 1 Start: 07-27-2017 End: 11-24-2022 take 2 tablets [...] by subc utaneous injection every other week Humira 40 mg/0.8 mL subcutaneous kit 40 mg = 0.8 mL, SubCutaneous, q2wk, # 1 kit(s), Refills(s) 0 Start Date: 07/10/22 Status: Ordered Quantity: 1.0 Unit: kit(s) Repeat number: 1 Start: 05-05-2022 End: 12-12-2022 Adalimumab (Humira(Cf) Pen) [...] Start: 05-05-2022 End: 08-15-2024 Budesonide 32 mcg/actuation Lucile,Non-Aerosol Discontinued 2 SPRAY INTRANASAL Daily at bedtime [...] mg / cholecalciferol 200 unt oral tablet (12 sources) Vitamin D Start: 05-05-2022 End: 08-13-2023 [...] 20 capsule 06/09/2024 08/22/2024 Discontinued Cetrizine Hydrochloride (12 sources) Start: 07-27-2017 End: 05-05-2022 take 10 mg by mouth at bedtime Cetrizine Hydrochloride Discontinued 10 MG PO Bedtime July 27, 2017 12:00am May 05, 2022 10:48am Start: 07-27-2017 End: 05-05-2022 take 10 mg by mouth at bedtime Cetrizine Hydrochloride Discontinued 10 MG PO Bedtime July 26, 2017 11:00pm May 05, 2022 9:48am Kan Pcsynf-Ae-Mnbhsbnobmkh-T ea (Apple Cider Vinegar Plus) [phone] bz-jai-ix-mg Tablet (10 sources) Start: 11-24-2022 End: 03-12-2023 take 1 tablet by mouth once daily in the morning Kan Arymse-Pq-Dgqnnsugwqcp-Tea (Apple Cider Vinegar Plus) [phone] ej-erp-xc-mg Tablet Discontinued 1 TAB PO Every morning November 23, 2022 11:00pm March 12, 2023 7:22am Start: 11-24-2022 End: 03-12-2023 take 1 tablet by mouth once daily in the morning Kan Rotnlj-Tg-Txqdzxctayhd-Tea (Apple Ci praveena Vinegar Plus) [phone] bw-rgk-sf-mg Tablet Discontinued 1 TAB PO Every morning November 24, 2022 12:00am March 12, 2023 8:22am Start: 11-24-2022 take 1 tablet by vish th once daily in the morning Kan Tqukuz-Lr-Zmpdsmtmiyxc-Tea (Apple Ci praveena Vinegar Plus) [phone] og-bez-tt-mg Tablet Active 1 TAB PO Every morning November 24, 2022 12:00am diphenhydrAMINE hydrochloride 25 mg oral tablet (10 sources) Histamine-1 Receptor Antagonist End: 06-12-2024 take 1 tablet by mouth at bedtime diphenhydrAMINE (BENADryl) 25 MG tablet Take 25 mg by mouth at bedtime 06/12/2024 Discontinued Ginseng (12 sources) Start: 07-27-2017 End: 05-05-2022 take 1 [...] 26, 2017 11:00pm May 05, 2022 9:48am Ginsengs-[place] Jelly 800-200 MG (6 sources) take 2 capsules by mouth twice daily Ginsengs-[place]ad[place] Jelly 800-200 MG two capsules Orally twice a day Not-Taking take 2 capsules by mouth twice d aily Ginsengs-Gladstone Jelly 800-200 MG two capsules Orally twice a day Active hydroCHLOROthiazide 12.5 mg / lisinopril 10 mg oral tablet (12 sources) Thiazide Diuretic, Angiotensin Converting Enzyme Inhibitor Start: 07-24-2017 End: 05-05-2022 take 1 tablet by mouth once daily Lisinopril-Hydrochlorothiazide 10-12.5 mg tablet Discontinued 1 TAB PO Daily July 24, 2017 1:00am May 05, 2022 10:27am Inulin-Sorbitol (Fiber Supplement (Inulin)) 2 gram Tablet,Chewable (12 sources) Start: 07-27-2017 End: 03-12-2023 Inulin-Sorbitol (Fiber [...] Combination No.4 (Probiotic) 3 billion cell Capsule (12 sources) Start: 07-27-2017 End: 11-24-2022 take 3 [...] mouth Daily 06/12/2024 Discontinued Methyl Folate 5-Myhf (12 sources) Start: 07-27-2017 End: 08-15-2024 take 5 [...] G/0.5ML solution pen-injector 08/27/2023 Active Multivitamin Capsule (3 sources) Start: 07-27-2017 End: 03-31-2023 take 1 capsule by mouth once daily in the morning Multivitamin Capsule Discontinued 1 CAP PO Every morning July 27, 2017 12:00am March 31, 2023 12:57pm [place] 5-Mkx-Lhv-Fish Oil (Fish Oil) 1,000 mg (120 mg-180 mg) Capsule (12 sources) Start: 07-27-2017 End: 12-12-2022 take 1 tablet by mouth three times daily [place] 9-Tkz-Dla-Fish Oil (Fish Oil) 1,000 mg (120 mg-180 mg) Capsule Discontinued 1 TAB PO Three times daily July 26, 2017 11:00pm December 12, 2022 2:11pm Start: 07-27-2017 End: 07-28-2023 take 1 tablet by mouth three times daily [place] 2-Poq-Zcz-Fish Oil (Fish Oil) 1,000 mg (120 mg-180 mg) Capsule Discontinued 1 TAB PO Three times daily July 27, 2017 12:00am December 12, 2022 3:11pm Start: 07-27-2017 take 1 tablet by vish th three times daily [place] 6-Znd-Opd-Fish Oil (Fish Oil) 1,000 mg (120 mg-180 mg) Capsule Active 1 TAB PO Three times daily July 27, 2017 12:00am Start: 07-27-2017 take 1 tablet by vish th three times daily [place] 4-Rib-Ggk-Fish Oil (Fish Oil) 1,000 mg (120 mg-180 mg) Capsule Active 1 TAB PO Three times daily July 26, 2017 11:00pm ondansetron 8 mg oral tablet (20 sources) Serotonin-3 Receptor Antagonist Start: 08-26-2023 take 1 tablet by mouth every eight hours as needed for nausea ondansetron 8 mg Tab 8 mg = 1 tab(s), Oral, q8hr, TAKE 1 TABLET BY MOUTH EVERY 8 HOURS NEEDED FOR NAUSEA Start Date: 10/05/23 Status: Ordered Repeat number: 1 phentermine hydrochloride 37.5 mg oral capsule (12 sources) Sympathomimetic Amine Anorectic Start: 07-27-2017 End: [...] W/O CHOLECYST W/O OBST] Onset: 3 Episodic Calculus of urinary tract (20 sources) Calculus of kidney; Translations: [Kidney stone] Onset: 3 Episodic Cancer of thyroid (20 sources) Malignant tumor of thyroid gland; Translations: [Malignant neoplasm of thyroid gland] Onset: 6 11-26-2022 Chronic Diabetes mellitus without complication (20 sources) Type 2 diabetes mellitus; Translations: [Diabetes mellitus] Onset: 3 07-10-2022 Chronic Comment on above: Type 2 linked DM with HLD p er OP CDI policy. Disorders of lipid metabolism (20 sources) Hyperlipidemia; Translations: [Hyperlipidemia, unspecified] Onset: 3 07-10-2022 Chronic Esophageal disorders (20 sources) Gastroesophageal reflux disease; Translations: [Gastro-esophageal reflux disease without esophagitis] Onset: 3 07-10-2022 Chronic Essential hypertension (20 sources) Hypertensive disorder; Translations: [Essential (primary) hypertension] Onset: 0 07-10-2022 Chronic Genitourinary symptoms and ill-defined conditions (20 sources) Urge incontinence; Translations: [Urge incontinence of urine] Onset: 4 Resolved: 5 Chronic Genitourinary symptoms and ill-defined conditions (20 sources) Incomplete emptying of bladder; Translations: [Asymptomatic microscopic hematuria] Onset: 2 Resolved: 5 07-14-2022 Episodic Immunity disorders (1 source) 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 added per OP CDI policy. Other aftercare (3 sources) Long-term current use of immunosuppressive drug; [...] Chronic Other nutritional; endocrine; and metabolic disorders (4 sources) Body mass index 30+ - obesity 03-15-2024 Chronic Other screening for suspected conditions (not mental disorders or infectious disease) (11 sources) Encounter for screening for osteoporosis; Translations: [Encounter for screening for malignant neoplasm of cervix] Onset: 2 Episodic Other skin disorders (20 sources) Changes in skin texture; Translations: [Changes in skin texture] Onset: 5 Resolved: 5 02-09-2024 Episodic Other skin disorders (2 sources) Seborrheic [...] without complications] Onset: 1 Resolved: 2 Chronic Comment on above: noted in 08/15/2024 Rheumatology Consult Note page 1. added per OP CDI policy. Residual codes; unclassified (20 sources) Obstructive sleep [...] sources) Hypothyroidism; Translations: [Other specified hypothyroidism] Onset: 07-10-2022 Chronic Unclassified (13 sources) Asymptomatic microscopic hematuria 07-14-2022 Unclassified (3 sources) Patient encounter status 10-05-2023 Unclassified (1 source) Long-term current use of immunosuppressive drug 08-26-2024 Comment on above: noted in 08/15/2024 Rheumatology Consult Note page 1. added per OP CDI policy. 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 CURRENT USE OF ASPIRIN] Onset: 01-30-2022 Episodic Other connective tissue disease (20 sources) Spasticity; Translations: [Cramp and spasm] Onset: 12-19-2023 12-19-2023 Episodic Other nervous system disorders (20 sources) Paresthesia; Translations: [Paresthesia of skin] Onset: 12-19-2023 12-19-2023 Episodic Other non-traumatic joint disorders (20 sources) Pain in left knee; Translations: [Pain in joint, lower leg] Onset: 11-12-2023 11-12-2023 Episodic Residual codes; unclassified (1 source) Other specified postprocedural states; Translations: [OTH SPECIFIED POSTPROCEDURAL STATES] Onset: 01-30-2022 Episodic Urinary tract infections (20 sources) Urinary tract infectious disease; Translations: [Urinary tract infection, site not specified] Onset: 05-19-2022 07-14-2022 Episodic Results Test Name Value Interpretation Reference Range Facil ity Ambulatory Visit Summaryon 1 Ambulatory Visit Summary Ambulatory Visit Summary ANNETTELAURENCE VuSOPHIE Cruz :1950 Visit Date:02/24/2025 Ambulatory Visit Instructions Your Diagnosis Kidney stones Incomplete bladder emptying Pyuria Tests Performed US Renal -- Results Pending -- Please visit your patient portal for your results or contact your primary care physician. Your Care Team Attending Physician - Bertha BLAND MD Primary Care Physician - Bambi Reynolds This Is Your Medications List Contact prescribing physician if questions or concerns Misc Prescription (BACLOFEN 10 MG TABLET) Non-Formulary Medication (calcium chew) Non-Formulary Medication (probiotic with prebiotic) acetaminophen (acetaminophen 650 mg oral tablet, extended release) adalimumab (Humira 40 mg/0.8 mL subcutaneous kit) ascorbic acid (Vitamin C) aspirin (aspirin 81 mg Oral EC Tab) atorvastatin (atorvastatin 20 mg Tab) cholecalciferol (Vitamin D3) cranberry hydrochlorothiazide-lo sartan (hydrochlorothiazide-l osartan 25 mg-100 mg Tab) levothyroxine (levothyroxine 125 mcg (0.125 mg) Tab) liothyronine (liothyronine 5 mcg Tab) magnesium gluconate (magnesium gluconate 500 mg oral tablet) metformin (MetFORMIN (Eqv-Glucophage XR) 500 mg oral tablet, extended release) methylcobalamin (Methyl B-12) multivitamin with iron (Iron 100 Plus) omega-3 polyunsaturated fatty acids (Fish Oil) omeprazole (omeprazole 20 mg Cap-DR) ondansetron (ondansetron 8 mg Tab) pregabalin (pregabalin 50 mg Cap) tirzepatide (Mounjaro 10 mg/0.5 mL subcutaneous solution) ubiquinone (CoQ10) zinc sulfate (Zinc) Procedures Performed Appendectomy, Arthroscopy of knee, Arthroscopy, knee, surgical; with meniscus repair (medial OR lateral), Cervical polypectomy, Colonoscopy, Cyst, Cystoscopy, Hysterectomy, Surgery, Thyroidectomy. Discharge Vitals Temperature (Tympanic) 36.7 ???C Heart Rate (Peripheral) 74 Respiratory Rate 16 Blood Pressure 130/78 Height 158 cm Height 62 in Weight 91.7 kg Weight 202.164 lb BMI 36.73 What to do next Scheduled Follow-Up Appointments Thursday 1:00 PM EST Where: [facility] [address] [address]- You Need to Schedule the Following Appointments Follow Up with Bertha BLAND MD, URL When: Where: [facility] [address] , [place] [address]- Medications What How Much When Instructions Unchanged acetaminophen (acetaminophen 650 mg oral tablet, extended release) By Mouth Every 8 hours Contact prescribing physician if questions or concerns Unchanged adalimumab (Humira 40 mg/ 0.8 mL subcutaneous kit) 0.8 Milliliter Subcutaneous Every other week Contact prescribing physician if questions or concerns Unchanged ascorbic acid (Vitamin C) Every day Contact prescribing physician if questions or concerns Unchanged aspirin (aspirin 81 mg Oral EC Tab) By Mouth Every day Contact prescribing physician if questions or concerns Unchanged atorvastatin (atorvastatin 20 mg Tab) 1 Tablets By Mouth Every day Contact prescribing physician if questions or concerns Unchanged cholecalciferol (Vitamin D3) 50 Microgram By Mouth Thursday Contact prescribing physician if questions or concerns Unchanged cranberry Contact prescribing physician if questions or concerns Unchanged hydrochlorothiazide-lo sartan (hydrochlorothiazide-l osartan 25 mg-100 mg Tab) See instructions TAKE 1 TABLET DAILY Contact prescribing physician if questions or concerns Unchanged levothyroxine (levothyroxine 125 mcg (0.125 mg) Tab) See instructions TAKE 1 TABLET EVERY DAY Contact prescribing physician if questions or concerns Unchanged liothyronine (liothyronine 5 mcg Tab) 1 Tablets By Mouth Every day Contact prescribing physician if questions or concerns Unchanged magnesium gluconate (magnesium gluconate 500 mg oral tablet) By Mouth 2 times a day Contact prescribing physician if questions or concerns Unchanged metformin (MetFORMIN (Eqv-Glucophage XR) 500 mg oral tablet, extended release) See instructions TAKE 1 TABLET 3 TIMES A DAY Contact prescribing physician if questions or concerns Unchanged methylcobalamin (Methyl B-12) See instructions 5 mg Chewed Contact prescribing physician if questions or concerns Unchanged Misc Prescription (BACLOFEN 10 MG TABLET) 0 Contact prescribing physician if questions or concerns Unchanged multivitamin with iron (Iron 100 Plus) 1 Tablets By Mouth Every day Contact prescribing physician if questions or concerns Unchanged Non-Formulary Medication (calcium chew) Contact prescribing physician if questions or concerns Unchanged Non-Formulary Medication (probiotic with prebiotic) Contact prescribing physician if questions or concerns Unchanged omega-3 polyunsaturated fatty acids (Fish Oil) 1,200 Milligram By Mouth Every day Contact prescribing physician if questions or concerns Unchanged omeprazole (omeprazole 20 mg Cap-D (more content not included)... Normal [facility] Urology Office/Clinic Noteon 02-24-2025 Urology Office/Clinic Note Urology Office/Clinic Note Chief Complaint Pt here for 6 mth follow up with [facility] HPI Staff 1 year with LASHONDA. Dx: kidney stone, incomplete bladder emptying and urge incontinence Pt reports that she has intermittent pain and burning pt denies visible blood denies flank pain PVR: 136 mL History of Present Illness Tests reviewed: UA, K[facility] I have reviewed the previous health record information and history for this patient from Kamla Gottlieb PA-C. I have reviewed and verified the staff [...] HPI. Physical Exam Vitals & Measurements T: 36.7 ???C(Tympanic) HR: 74(Peripheral) RR: 16 BP: 130/78 HT: 158 cm HT: 62 in WT: 202.164 lb WT: 91.7 kg BMI: 36.73 General Appearance: alert, no distress, well nourished, well developed adult. Assessment/Plan 1. Kidney stones (N20.0: Calculus of kidney) First and only prior stone episode at 22 yo. KUB 07/22/22 - L nephrolithiasis. CT 08/19/22 - Two nonobstructing 3 mm stones in the L kidney. TIM/KUB 02/02/24 [facility] - R side clear, L side w nonobstructing stones up to 6mm on TIM but not visible on KUB. [facility] 02/07/25 [facility] - Neg. No stone S/S or passage since prior OV. Reviewed imaging with pt, suspect bowel content is obscuring view since pt has not passed any stones since prior image and was previously measured at 6 mm. Discussed repeating imaging with TIM instead which may better visualize stones. Pt agreeable. Used to drink 80 oz daily but since increase Mounjaro dose, she has difficulty drinking this much fluid. Follow up pending TIM below or sooner if needed. Pt understands and agrees with plan. -Schedule TIM -High fluid intake 2. Incomplete bladder emptying (R33.9: Retention of urine, unspecified) PVR (cc): 02/13/23 - 120 (voided 45 min prior) 08/17/23 - 326 (did not perform double void maneuver) 09/14/23 - 105 mL (pt voided 30min prior) 02/18/24 - 162 02/24/25 - 136 Stable. [place] she emptied completely. She is doing double voids and learns forwards. Strains a bit and will wait if she didn't feel like she emptied. Decent flow. Educated residual urine increases risk for UTI. -Bladder emptying maneuvers, double voids, crede technique 3. Pyuria (R82.81: Pyuria) UA shows large leuks. Asx. -Notify office if sx develop Follow-up With When Contact Information EDWINA MOSLEY, Bertha Vu, URL [facility] [address], [place] [address]- Additional Instructions: sched TIM Patient Education Dietary Guidelines to Help Prevent Kidney Stones I, Pat Crabtree, personally scribed for Dr. Bland on 02/24/2025 11:36:40. . Documentation recorded by the scribe, Pat Crabtree, accurately reflects the services(s) I performed and decisions made by me. Authenticated by Dr. Bland on 02/24/2025 11:38:00. 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 Normal [facility] Comment on above: Result Comment: Elec tronically Signed By: Bertha BLAND MD\.br\Date and Time Signed: 02/24/25 11:38 EDT\.br\Electronically Co-Signed By: Pat Crabtree\.br\Date and Time Co-Signed: 02/24/25 11:37 EDT No Panel Informationon 10-27 Radiology Study observation (narrative) [facility] eWise XR Knee - left 1 or 2 [...] dislocation. Impression: [facility]able [facility] - right 1 or 2 [...] dislocation. Impression: Unremarkable right total knee arthroplasty [facility] eWise Hemoglobin a1c with eagon Glucose [Mass/Vol] 114 mg/dL [facility] HbA1c (Bld) [Mass fraction] 5.6 % 4.3 - 5.6 % [facility] Comment on above: Increased risk for d iabetes: 5.7 - 6.4 diabetes: >6.4 glycemic control for adults with diabetes: <7.0 [facility] A1C with Estimated Average G [facility] 09-07-2024 Glucose [Mass/Vol] 114 mg/dL Normal [facility] Comment on above: Result Comment: PERF ORMED BY: [place] [address] PATHOLOGIST TEMPLATE CLERK YARELY LEOS M.D. Performed By: #### A 1C WT Serena, ADDONUAPLUS #### [address] HbA1c (Bld) [Mass fraction] 5.6 % Normal 4.3-5.6 [facility] Comment on above: Result Comment: Incr eased risk for diabetes: 5.7 - 6.4 diabetes: >6.4 glycemic control for adults with diabetes: <7.0 Performed By: #### A 1C WT Serena, ADDONUAPLUS #### [address] Adalimumab Tulio Ab Serialon 09-07-2024 Adalimumab Drug Level 5.6 ug/mL Normal . [facility] Comment on above: Result Comment: [...] Anti-Adalimumab Ab 44 ng/mL Normal . [facility] Comment on above: Result Comment: [...] by a confirmatory test. References: 1. Sharon Royal et al. AGA Review on TDM in IBD. Gastroenterol 2017;153:835-857. 2. Umm E, et al. J Crohns Col 2016;10(5):510-515. 3. Jass MF, et al. Amna Rheum Dis 2015;74:513-518. 4. Bartelds GM, et al. BEATRIZ 2011;305(14):1021-0410. 5. Steenholdt C, et al. J Clin Gastroenterol 2016; 50:482-489. 6. Diane H, et al. Clin Gastroenterol Hepatol 2015; 13(3):522-530. 7. Samantha A, et al. Gastroenterol 2019;156(6):S-617. These tests were developed and their performance characteristics determined by [facility]. They have not been cleared or approved by the Food and Drug Administration. However, these electrochemiluminescence immunoassay (ECLIA) measurements of adalimumab and anti-adalimumab antibody (constituting DoseASSURE ADL) have been developed and validated in accordance with CLIA (Clinical Laboratory Improvement Amendments) and the FDA Guidance document, Assay Development and Validation for Immunogenicity Testing of Therapeutic Protein Products (2019). Performed at: [facility] [address] [place] [id number] Decontamination Worker: Chirag Anderson MD, Phone: [phone] PERFORMED BY: [address] [place] [address] PATHOLOGIST TEMPLATE CLERK YARELY LEOS M.D. Performed By: #### A DALIMUMAB SER #### [facility] , Alanine aminotransferase [En zymatic activity/volume] in Serum or PlasmaOrdered By: Cesar Estrada on 09-07-2024 ALT [Catalytic activity/Vol] Alanine aminotransferase [Enzymatic activity/volume] in Serum or Plasma 7-52 [facility] Albumin [Mass/volume] in Ser um or Plasma by Bromocresol green (BCG) dye binding methoOrdered By: Cesar Estrada on 09-07-2024 Albumin BCG dye [Mass/Vol] Albumin [Mass/volume] in Serum or Plasma by Bromocresol green (BCG) dye binding metho 3.5-5.7 [facility] Alkaline phosphatase [Enzyma tic activity/volume] in Serum or PlasmaOrdered By: Cesar Estrada on 09-07-2024 ALP [Catalytic activity/Vol] Alkaline phosphatase [Enzymatic activity/volume] in Serum or Plasma 34-104 [facility] Appearance of UrineOrdered B y: Rosalinda Bernstein on 09-07-2024 Appearance (U) Urine appearance Clear [facility] Aspartate aminotransferase [ Enzymatic activity/volume] in Serum or PlasmaOrdered By: Cesar Estrada on 09-07-2024 AST [Catalytic activity/Vol] Aspartate aminotransferase [Enzymatic activity/volume] in Serum or Plasma 13-39 [facility] Bacteria [Presence] in Urine by AutomatedOrdered By: Rosalinda Bernstein on 09-07-2024 Bacteria Auto Ql (U) Bacteria [Presence] in Urine by Automated None Seen [facility] Basophils Auto (Bld) [#/Vol] Ordered By: Cesar Estrada on 09-07-2024 Basophils (Bld) [#/Vol] Automated basophil count 0.0-0.2 [facility] Basophils/100 WBC Auto (Bld) Ordered By: Cesar Estrada on 09-07-2024 Basophils/100 WBC (Bld) Automated basophil % . [facility] Bilirubin Test strip Ql (U)O rdered By: Rosalinda Bernstein on 09-07-2024 Bilirubin Ql (U) Bilirubin.total [Presence] in Urine by Test strip Negative [facility] Bilirubin.total [Mass/volume ] in Serum or PlasmaOrdered By: Cesar Estrada on 09-07-2024 Bilirubin [Mass/Vol] Bilirubin.total [Mass/volume] in Serum or Plasma 0.3-1.0 [facility] C reactive protein [Mass/vol ume] in Serum or PlasmaOrdered By: Cesar Estrada on 09-07-2024 CRP [Mass/Vol] C reactive protein [Mass/volume] in Serum or Plasma 0.0-0.5 [facility] C-Reactive Proteinon 025 CRP [Mass/Vol] mg/L Normal 0.0-0.5 [facility] Comment on above: Result Comment: PERF ORMED BY: [place] [address] PATHOLOGIST TEMPLATE CLERK YARELY LEOS M.D. Performed By: #### C MP, CRP, CBC #### [address] Calcium [Mass/volume] in Ser um or PlasmaOrdered By: Cesar Estrada on 09-07-2024 Calcium [Mass/Vol] Calcium [Mass/volume ] in Serum or Plasma 8.6-10.3 [facility] Carbon dioxide, total [Moles /volume] in Serum or PlasmaOrdered By: Cesar Estrada on 09-07-2024 CO2 [Moles/Vol] Carbon dioxide, tota l [Moles/volume] in Serum or Plasma 21.0-31.0 [facility] Chloride [Moles/volume] in S soni or PlasmaOrdered By: Cesar Estrada on 09-07-2024 Chloride [Moles/Vol] Chloride [Moles/volume] in Serum or Plasma Low 98-107 [facility] Color Auto (U)Ordered By: Vasyl Bernstein on 09-07-2024 Color (U) Color of Urine by Auto Yellow Fi relaCounts include 234 beds at the [facility] Complete Blood Count Auto Di ffon 09-07-2024 Basophils (Bld) [#/Vol] 0.1 10*3/uL Normal 0.0-0.2 [facility] Comment on above: Result Comment: PERF ORMED BY: [place] [address] PATHOLOGIST TEMPLATE CLERK YARELY LEOS M.D. Performed By: #### C MP, CRP, CBC #### [address] Basophils/100 WBC (Bld) 0.8 % Normal . [facility] Comment on above: Performed By: #### C MP, CRP, CBC #### [place] [address] [place] Eosinophils (Bld) [#/Vol] 0.9 10*3/uL High 0.0-0.45 [facility] Comment on above: Performed By: #### C MP, CRP, CBC #### [address] Eosinophils/100 WBC (Bld) 10.4 % Normal . [facility] Comment on above: Performed By: #### C MP, CRP, CBC #### [address] Erythrocyte distribution width (RBC) [Ratio] 14.1 % Normal 11.9-15.3 [facility] Comment on above: Performed By: #### C MP, CRP, CBC #### [address] Hematocrit (Bld) [Volume fraction] 36.7 % Normal 34.0-46.4 [facility] Comment on above: Performed By: #### C MP, CRP, CBC #### [place] [address] [place] Hemoglobin (Bld) [Mass/Vol] 12.7 g/dL Normal 11.8-15.4 [facility] Comment on above: Performed By: #### C MP, CRP, CBC #### [place] [address] [place] Lymphocytes (Bld) [#/Vol] 3.1 10*3/uL Normal 1.00-4.8 [facility] Comment on above: Performed By: #### C MP, CRP, CBC #### [address] Lymphocytes/100 WBC (Bld) 35.8 % Normal . [facility] Comment on above: Performed By: #### C MP, CRP, CBC #### [address] MCH (RBC) [Entitic mass] 30.0 pg Normal 24.7-34.3 [facility] Comment on above: Performed By: #### C MP, CRP, CBC #### [address] MCV (RBC) [Entitic vol] 86.6 fL Normal 80-100 [facility] Comment on above: Performed By: #### C MP, CRP, CBC #### [address] [address] Mean Corpuscular HGB Conc 34.6 g/dL Normal 32.0-35.0 [facility] Comment on above: Performed By: #### C MP, CRP, CBC #### [place] [address] [place] Monocytes (Bld) [#/Vol] 0.8 10*3/uL Normal 0.0-0.8 [facility] Comment on above: Performed By: #### C MP, CRP, CBC #### [address] Monocytes/100 WBC (Bld) 9.4 % Normal . [facility] Comment on above: Performed By: #### C MP, CRP, CBC #### [address] Neutrophils (Bld) [#/Vol] 3.8 10*3/uL Normal 1.8-7.7 [facility] Comment on above: Performed By: #### C MP, CRP, CBC #### [address] Neutrophils/100 WBC (Bld) 43.6 % Normal . [facility] Comment on above: Performed By: #### C MP, CRP, CBC #### [address] NRBC% 0.0 /100{WBC} Normal 0-0.5 [facility] Comment on above: Performed By: #### C MP, CRP, CBC #### [address] Platelet mean volume (Bld) [Entitic vol] 6.7 fL Normal 6.3-10.7 [facility] Comment on above: Performed By: #### C MP, CRP, CBC #### [address] Platelets (Bld) [#/Vol] 348 10*3/uL Normal 150-450 [facility] Comment on above: Performed By: #### C MP, CRP, CBC #### [address] RBC (Bld) [#/Vol] 4.23 10*6/uL Normal 3.60-5.00 [facility] Comment on above: Performed By: #### C MP, CRP, CBC #### [address] WBC (Bld) [#/Vol] 8.7 10*3/uL Normal 3.8-11.6 [facility] Comment on above: Performed By: #### C MP, CRP, CBC #### [address] Comprehensive Metabolic Pane cata 09-07-2024 Albumin [Mass/Vol] 3.9 g/dL Normal 3.5-5.7 [facility] Comment on above: Performed By: #### C MP, CRP, CBC #### [address] Albumin/Globulin [Mass ratio] 1.1 {ratio} Normal [facility] Comment on above: Performed By: #### C MP, CRP, CBC #### [place] [address] [place] ALP [Catalytic activity/Vol] 68 U/L Normal 34-104 [facility] Comment on above: Performed By: #### C MP, CRP, CBC #### [address] ALT [Catalytic activity/Vol] 21 U/L Normal 7-52 [facility] Comment on above: Performed By: #### C MP, CRP, CBC #### [address] Anion gap [Moles/Vol] 12.5 mmol/L Normal 6.0-15.0 [facility] Comment on above: Performed By: #### C MP, CRP, CBC #### [address] AST [Catalytic activity/Vol] 17 U/L Normal 13-39 [facility] Comment on above: Performed By: #### C MP, CRP, CBC #### [address] Bilirubin [Mass/Vol] 0.5 mg/dL Normal 0.3-1.0 [facility] Comment on above: Performed By: #### C MP, CRP, CBC #### [address] Calcium [Mass/Vol] 9.3 mg/dL Normal 8.6-10.3 [facility] Comment on above: Performed By: #### C MP, CRP, CBC #### [address] Chloride [Moles/Vol] 96 mmol/L Low 98-107 [facility] Comment on above: Performed By: #### C MP, CRP, CBC #### [address] CO2 [Moles/Vol] 29.9 mmol/L Normal 21.0-31.0 [facility] Comment on above: Performed By: #### C MP, CRP, CBC #### [address] Creatinine [Mass/Vol] 0.69 mg/dL Normal 0.60-1.20 [facility] Comment on above: Performed By: #### C MP, CRP, CBC #### [address] GFR/1.73 sq M.predicted MDRD (S/P/Bld) [Vol rate/Area] mL/min/{1.73_m2} Normal [facility] Comment on above: Performed By: #### C MP, CRP, CBC #### [address] Globulin (S) [Mass/Vol] 3.5 g/dL Normal [facility] Comment on above: Performed By: #### C MP, CRP, CBC #### [address] Glucose [Mass/Vol] 82 mg/dL Normal 70-100 [facility] Comment on above: Result Comment: [facility] Glucose Reference Range is dependent on time and content of last meal. Glucose of more than 200 mg/dL in a nonstressed, ambulatory subject supports the diagnosis of Diabetes Mellitus. ADA recommended reference range Performed By: #### C MP, CRP, CBC #### [address] Potassium [Moles/Vol] 4.4 mmol/L Normal 3.5-5.1 [facility] Comment on above: Performed By: #### C MP, CRP, CBC #### [place] [address] [place] Protein [Mass/Vol] 7.4 g/dL Normal 6.4-8.9 [facility] Comment on above: Performed By: #### C MP, CRP, CBC #### [place] [address] [place] Sodium [Moles/Vol] 134 mmol/L Low 136-145 [facility] Comment on above: Performed By: #### C MP, CRP, CBC #### [address] Urea nitrogen [Mass/Vol] 11 mg/dL Normal 7-25 [facility] Comment on above: Performed By: #### C MP, CRP, CBC #### [facility] [address] Creatinine [Mass/volume] in Serum or PlasmaOrdered By: Cesar Estrada on 09-07-2024 Creatinine [Mass/Vol] Creatinine [Mass/volume] in Serum or Plasma 0.60-1.20 [facility] Dipstick and Microscopicon 0 09-07-2024 Appearance (U) Clear Normal Clear [facility] Comment on above: Order Comment: Name Collection Type:: Clean-Voided Midstream Performed By: #### A 1C WTH eA, ADDONUAPLUS #### [place] [address] [place] Bacteria,Urine Rare Normal None Seen [facility] Comment on above: Order Comment: Name Collection Type:: Clean-Voided Midstream Performed By: #### A 1C WTH eA, ADDONUAPLUS #### [place] [address] [place] Bilirubin,Urine Negative Normal Negative [facility] Comment on above: Order Comment: Name Collection Type:: Clean-Voided Midstream Performed By: #### A 1C WTH eA, ADDONUAPLUS #### [address] Color (U) Light-Yellow Normal Yellow [facility] Comment on above: Order Comment: Name Collection Type:: Clean-Voided Midstream Performed By: #### A 1C WTH eA, ADDONUAPLUS #### [address] Glucose Ql (U) Normal Normal Normal [facility] Comment on above: Order Comment: Name Collection Type:: Clean-Voided Midstream Performed By: #### A 1C WTH eA, ADDONUAPLUS #### [place] [address] [place] Hyaline Casts,Urine None Normal 0-8 [facility] Comment on above: Order Comment: Name Collection Type:: Clean-Voided Midstream Performed By: #### A 1C WTH eA, ADDONUAPLUS #### [address] Ketones Ql (U) Negative Normal Negative [facility] Comment on above: Order Comment: Name Collection Type:: Clean-Voided Midstream Performed By: #### A 1C WTH eA, ADDONUAPLUS #### [address] Leukocyte esterase Test strip Ql (U) 2+ High Negative [facility] Comment on above: Order Comment: Name Collection Type:: Clean-Voided Midstream Performed By: #### A 1C WTH eA, ADDONUAPLUS #### [place] [address] [place] Mucus,Urine Rare Normal [facility] Comment on above: Order Comment: Name Collection Type:: Clean-Voided Midstream Result Comment: PERF ORMED BY: [place] [address] PATHOLOGIST TEMPLATE CLERK YARELY LEOS M.D. Performed By: #### A 1C WTH eA, ADDONUAPLUS #### [place] [address] [place] Nitrite,Urine Negative Normal Negative [facility] Comment on above: Order Comment: Name Collection Type:: Clean-Voided Midstream Performed By: #### A 1C WTH eA, ADDONUAPLUS #### [place] [address] [place] Occult Blood,Urine Negative Normal Negative [facility] Comment on above: Order Comment: Name Collection Type:: Clean-Voided Midstream Performed By: #### A 1C WTH eA, ADDONUAPLUS #### [place] [address] [place] pH (U) 7.5 [pH] Normal 5.0-9.0 [facility] Comment on above: Order Comment: Name Collection Type:: Clean-Voided Midstream Performed By: #### A 1C WTH eA, ADDONUAPLUS #### [place] [address] [place] Protein,Urine Negative Normal Negative [facility] Comment on above: Order Comment: Name Collection Type:: Clean-Voided Midstream Performed By: #### A 1C WTH eA, ADDONUAPLUS #### [place] [address] [place] RBC,Urine 1-2 Normal 0-4 [facility] Comment on above: Order Comment: Name Collection Type:: Clean-Voided Midstream Performed By: #### A 1C WTH eA, ADDONUAPLUS #### [address] Specificy [place],Urine 1.009 Normal 1.001-1.030 [facility] Comment on above: Order Comment: Name Collection Type:: Clean-Voided Midstream Performed By: #### A 1C WTH eA, ADDONUAPLUS #### [address] Squamous Epithelial Cell,Urine 1-2 Normal 0-2 [facility] Comment on above: Order Comment: Name Collection Type:: Clean-Voided Midstream Performed By: #### A 1C WTH eA, ADDONUAPLUS #### [place] [address] [place] Urobilinogen,Urine Normal Normal Normal [facility] Comment on above: Order Comment: Name Collection Type:: Clean-Voided Midstream Performed By: #### A 1C WTH eA, ADDONUAPLUS #### [place] [address] [place] WBC,Urine 3-4 Normal 0-4 [facility] Comment on above: Order Comment: Name Collection Type:: Clean-Voided Midstream Performed By: #### A 1C WTH eA, ADDONUAPLUS #### [address] ECG 12 lead ECGon 09-07-2024 ECG 12 lead ECG [facility] [place] [address] Electrocardiograph Report Signed Patient: Gia Ruiz MR#: [id number] : 1950 Acct:[id number] Age/Sex: 74 / F ADM Date: 09/07/24 Loc: Room: Type: [facility] Attending Dr: Rosalinda Bernstein PA-C Ordering [...] change was found Confirmed by CHASITY MOSLEY [facility], JACKIE ([id number]) on 09/07/2024 4:51:09 PM Referred By: Electronically Signed By: JACKIE GASPAR MD FAC Transcribed By: MUS Signed By Jackie Gaspar MD, FACC 09/07/24 1651 Normal [facility] Eosinophils Auto (Bld) [#/Vo l]Ordered By: Cesar Estrada on 09-07-2024 Eosinophils (Bld) [#/Vol] Automated eosinophil count High 0.0-0.45 [facility] Eosinophils/100 WBC Auto (Bl d)Ordered By: Cesar Estrada on 09-07-2024 Eosinophils/100 WBC (Bld) Automated eosinophil % . [facility] Epithelial cells.squamous [# /area] in Urine sediment by Automated countOrdered By: Rosalinda Bernstein on 09-07-2024 Epithelial cells.squamous Auto (Urine sed) [#/Area] Epithelial cells.squamous [#/area] in Urine sediment by Automated count 0-2 [facility] Erythrocyte distribution wid th Auto (RBC) [Ratio]Ordered By: Cesar Estrada on 09-07-2024 Erythrocyte distribution width (RBC) [Ratio] Erythrocyte distribution width [Ratio] by Automated count 11.9-15.3 [facility] Erythrocytes [#/area] in Uri ne sediment by Automated countOrdered By: Rosalinda Bernstein on 09-07-2024 RBC Auto (Urine sed) [#/Area] Erythrocytes [#/area] in Urine sediment by Automated count 0-4 [facility] Globulin Calc (S) [Mass/Vol] Ordered By: Cesar Estrada on 09-07-2024 Globulin (S) [Mass/Vol] Serum globulin measurement by calculation (mass/volume) [facility] Glucose [Mass/volume] in Ser um or PlasmaOrdered By: Cesar Estrada on 09-07-2024 Glucose [Mass/Vol] Glucose [Mass/volume ] in Serum or Plasma 70-100 [facility] Comment on above: ADA recommended [...] Urine by Test strip Normal [facility] Hematocrit Auto (Bld) [Volum e fraction]Ordered By: Cesar Estrada on 09-07-2024 Hematocrit (Bld) [Volume fraction] Hematocrit [Volume Fraction] of Blood by Automated count 34.0-46.4 [facility] Hemoglobin Test strip Ql (U) Ordered By: Rosalinda Bernstein on 09-07-2024 Hemoglobin Ql (U) Hemoglobin [Presence ] in Urine by Test strip Negative [facility] Hemoglobin [Mass/volume] in BloodOrdered By: Cesar Estrada on 09-07-2024 Hemoglobin (Bld) [Mass/Vol] Hemoglobin [Mass/volume] in Blood 11.8-15.4 [facility] Hyaline casts [#/area] in Ur ine sediment by Automated countOrdered By: Rosalinda Bernstein on 09-07-2024 Hyaline casts Auto (Urine sed) [#/Area] Hyaline casts [#/area] in Urine sediment by Automated count 0-8 [facility] Ketones Test strip Ql (U)Ord ered By: Rosalinda Bernstein on 09-07-2024 Ketones Ql (U) Ketones [Presence] i n Urine by Test strip Negative [facility] Leukocyte esterase [Presence ] in Urine by Test stripOrdered By: Rosalinda Bernstein on 09-07-2024 Leukocyte esterase Test strip Ql (U) Leukocyte esterase [Presence] in Urine by Test strip High Negative [facility] Leukocytes [#/area] in Urine sediment by Automated countOrdered By: Rosalinda Bernstein on 09-07-2024 WBC Auto (Urine sed) [#/Area] Leukocytes [#/area] in Urine sediment by Automated count 0-4 [facility] Leukocytes [#/volume] correc lisa for nucleated erythrocytes in Blood by Automated counOrdered By: Cesar Estrada on 09-07-2024 WBC corrected for nucl RBC Auto (Bld) [#/Vol] Leukocytes [#/volume] corrected for nucleated erythrocytes in Blood by Automated coun 3.8-11.6 [facility] Lymphocytes Auto (Bld) [#/Vo l]Ordered By: Cesar Estrada on 09-07-2024 Lymphocytes (Bld) [#/Vol] Lymphocytes [#/volume] in Blood by Automated count 1.00-4.8 [facility] Lymphocytes/100 WBC Auto (Bl d)Ordered By: Cesar Estrada on 09-07-2024 Lymphocytes/100 WBC (Bld) Lymphocytes/100 leukocytes in Blood by Automated count . [facility] MCH Auto (RBC) [Entitic mass ]Ordered By: Cesar Estrada on 09-07-2024 MCH (RBC) [Entitic mass] MCH [Entitic mass] by Automated count 24.7-34.3 [facility] MCHC Auto (RBC) [Mass/Vol]Or dered By: Cesar Estrada on 09-07-2024 MCHC (RBC) [Mass/Vol] MCHC [Mass/volume] by Automated count 32.0-35.0 [facility] MCV Auto (RBC) [Entitic vol] Ordered By: Cesar Estrada on 09-07-2024 MCV (RBC) [Entitic vol] MCV [Entitic volume] by Automated count 80-100 [facility] Monocytes Auto (Bld) [#/Vol] Ordered By: Cesar Estrada on 09-07-2024 Monocytes (Bld) [#/Vol] Automated blood monocyte count 0.0-0.8 [facility] Monocytes/100 WBC Auto (Bld) Ordered By: Cesar Estrada on 09-07-2024 Monocytes/100 WBC (Bld) Automated monocyte % . [facility] Mucus [Presence] in Urine by AutomatedOrdered By: Rosalinda Bernstein on 09-07-2024 Mucus Auto Ql (U) Mucus [Presence] in Urine by Automated [facility] Neutrophils Auto (Bld) [#/Vo l]Ordered By: Cesar Estrada on 09-07-2024 Neutrophils (Bld) [#/Vol] Neutrophils [#/volume] in Blood by Automated count 1.8-7.7 [facility] Neutrophils/100 WBC Auto (Bl d)Ordered By: Cesar Estrada on 09-07-2024 Neutrophils/100 WBC (Bld) Automated neutrophil % . [facility] Nitrite Test strip Ql (U)Ord ered By: Rosalinda Bernstein on 09-07-2024 Nitrite Ql (U) Nitrite [Presence] i n Urine by Test strip Negative [facility] No Panel InformationOrdered By: Cesar Estrada on 09-07-2024 Estimated GFR (CKD-EPI) > 60.0 mL/Min [facility] Pharmacy Creatinine Clearance (Chem N/A [facility] Nucleated erythrocytes [Pres ence] in Blood by Automated countOrdered By: Cesar Estrada on 09-07-2024 Nucleated RBC Auto Ql (Bld) Nucleated erythrocytes [Presence] in Blood by Automated count 0-0.5 [facility] Platelet mean volume Auto (B ld) [Entitic vol]Ordered By: Cesar Estrada on 09-07-2024 Platelet mean volume (Bld) [Entitic vol] Platelet mean volume [Entitic volume] in Blood by Automated count 6.3-10.7 [facility] Platelets Auto (Bld) [#/Vol] Ordered By: Cesar Estrada on 09-07-2024 Platelets (Bld) [#/Vol] Platelets [#/volume] in Blood by Automated count 150-450 [facility] Potassium [Moles/volume] in Serum or PlasmaOrdered By: Cesar Estrada on 09-07-2024 Potassium [Moles/Vol] Potassium [Moles/volume] in Serum or Plasma 3.5-5.1 [facility] Protein Test strip (U) [Mass /Vol]Ordered By: Rosalinda Bernstein on 09-07-2024 Protein (U) [Mass/Vol] Protein [Mass/volume] in Urine by Test strip Negative [facility] Protein [Mass/volume] in Ser um or PlasmaOrdered By: Cesar Estrada on 09-07-2024 Protein [Mass/Vol] Protein [Mass/volume ] in Serum or Plasma 6.4-8.9 [facility] RBC Auto (Bld) [#/Vol]Ordere d By: Cesar Estrada on 09-07-2024 RBC (Bld) [#/Vol] Erythrocytes [#/volume] in Blood by Automated count 3.60-5.00 [facility] Serum or plasma albumin/glob ulin mass ratioOrdered By: Cesar Estrada on 09-07-2024 Albumin/Globulin [Mass ratio] Serum or plasma albumin/globulin mass ratio [facility] Serum or plasma anion gap de terminationOrdered By: Cesar Estrada on 09-07-2024 Anion gap [Moles/Vol] Serum or plasma an ion gap determination 6.0-15.0 [facility] Sodium [Moles/volume] in Ser um or PlasmaOrdered By: Cesar Estrada on 09-07-2024 Sodium [Moles/Vol] Sodium [Moles/volume ] in Serum or Plasma Low 136-145 [facility] Specific gravity Test strip (U) [Rel density]Ordered By: Rosalinda Bernstein on 09-07-2024 Specific gravity (U) [Rel density] Specific gravity of Urine by Test strip 1.001-1.030 [facility] Urea nitrogen [Mass/volume] in Serum or PlasmaOrdered By: Cesar Estrada on 09-07-2024 Urea nitrogen [Mass/Vol] Urea nitrogen [Mass/volume] in Serum or Plasma 7-25 [facility] Urobilinogen Test strip (U) [Mass/Vol]Ordered By: Rosalinda Bernstein on 09-07-2024 Urobilinogen (U) [Mass/Vol] Urobilinogen [Mass/volume] in Urine by Test strip Normal [facility] WBC Auto (Bld) [#/Vol]Ordere d By: Cesar Estrada on 09-07-2024 WBC (Bld) [#/Vol] Leukocytes [#/volume ] in Blood by Automated count 3.8-11.6 [facility] pH Test strip (U)Ordered By: Rosalinda Bernstein on 09-07-2024 pH (U) pH of Urine by Test strip 5.0-9.0 [facility] Ambulatory Visit Summaryon 0 08-29-2024 Ambulatory Visit Summary Ambulatory Visit Summary GIA RUIZ :1950 Visit Date:08/29/2024 Ambulatory Visit Instructions Your Diagnosis Crohn's disease residential (current) use of immunosuppressive biologic Primary generalized [...] MOSLEY, Bertha Vu Where: [facility] [address] [place] [address]- Thursday 1:00 PM EST With: Where: [facility] [address] [address]- Medications What How Much When Instructions Unchanged [...] Incomplete bladder emptying Kidney stone Labial abscess residential (current) use of immunosuppressive biologic Obesity (BMI 35.0-39.9 without comorbidity) JOSE RAMON (ob (more content not included)... Normal [facility] Office/Clini c Noteon 08-29-2024 [...] Follow with GI. treatment with Humira 3. 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) see above [...] cholesterol under control will continue statin Other snf (current) drug therapy (Z79.899: Other snf (current) drug therapy) taking humira for crohn's Orders: metformin, 500 mg = 1 tab(s), Oral, TID, # 270 tab(s), Refills(s) 0, [facility], [facility], cm, 02/18/24 13:05:00 EDT, Height/Length Dosing, 91.7, kg, 02/18/24 13:05:00 EDT, Weight Dosing Follow-up No qualifying data available Problem List/Past Medical History Ongoing BMI 35.0-35.9,adult Crohn's disease GERD (gastroesophageal reflux disease) HTN (hypertension) Hyperlipidemia Hypothyroidism Immunodeficiency due to drugs Incomplete bladder emptying Kidney stone Labial abscess 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 Normal [facility] Comment on above: Result Comment: Elec tronically Signed By: Nam ODONNELL, Bambi Cruz\.br\Date and Time Signed: 08/29/24 11:17 EDT MM TOMOSYNTHESIS SCREENING B Ion 08-29-2024 [place] [address] Mammography Report Signed Patient: GIA RUIZ MR#: [id number] : 1950 Acct:[id number] Age/Sex: 74 / F ADM Date: 08/29/24 Loc: MAMMO Attending Dr: Robert Ferreira D.O. Ordering Physician: Robert Ferreira D.O. Results: Date of Service: 08/29/24 Follow Up: Procedure(s): MM tomosynthesis screening BI Accession Number(s): [id number] cc: Robert Ferreira D.O.; MILE SANCHEZ Patient Name: GIA RUIZ MR#: [id number] : 1950 Exam Date: 08/29/2024 Ordering Doctor: [...] prostate cancer at age 71. LOCATION: The [facility] BREAST COMPOSITION: The breasts are almost [...] Signed By: 08/29/24 1558 DD/ 1557 TD/TT: Strategic Alliances Manager: [facility] Radiology, Radiologist, - 08/29/2024 [place] [address] Mammography Report Signed Patient: GIA RUIZ MR#: [id number] : 1950 Acct:[id number] Age/Sex: 74 / F ADM Date: 08/29/24 Loc: MAMMO Attending Dr: Robert Ferreira D.O. Ordering Physician: Robert Ferreira D.O. Results: Date of Service: 08/29/24 Follow Up: Procedure(s): MM tomosynthesis screening BI Accession Number(s): [id number] cc: Robert Ferreira D.O.; MILE SANHCEZ Patient Name: GIA RUIZ MR#: [id number] : 1950 Exam Date: 08/29/2024 Ordering Doctor: [...] prostate cancer at age 71. LOCATION: The [facility] BREAST COMPOSITION: The breasts are almost [...] Avery M.D. Signed By: 08/29/24 1558 DD/ 155 TD/TT: Strategic Alliances Manager: [facility] [employer] Radiology Study observation (narrative) [facility] [employer] MM TOMOSYNTHESIS SCREENING B IOrdered By: Radiologist Radiology on 08-29-2024 [facility] [employer] Work Phone: IGP,APTIMA HPV,AGE GDLNon AGE GDLN ACOG TESTING Note . [facility] [employer] Comment on above: TESTS RESULT FLAG UN ITS REF RANGE LAB Clinician Provided Cytology Information Source.............Vagina No. of containers..01 ThinPrep Vial Age Algo ACOG La... Note 01 <21 or >65 or no age provided FLAG LEGEND: L-Low Normal,H-High Normal,LL-Alert Low,HH-Alert High <-Panic Low,>-Panic High,A-Abnormal,AA-Critical Abnormal Performed at: 01 =G [address] [id number] Lorena Dennis MD, PAP IG (IMAGE GUIDED) Note . [facility] Comment on above: TESTS RESULT FLAG UN ITS REF RANGE LAB DIAGNOSIS: 02 NEGATIVE FOR INTRAEPITHELIAL LESION OR MALIGNANCY. CELLULAR CHANGES ASSOCIATED WITH ATROPHY ARE PRESENT. Specimen adequacy: 02 Satisfactory for evaluation. Performed by: 02 Bambi Lock Electric Vehicle Electrician ([facility]) . 02 Note: Note 03 [...] <-Panic Low,>-Panic High,A-Abnormal,AA-Critical Abnormal Performed at: 02 [facility] [id number] [place] [id number] Daron Winslow MD, 03 WB [facility] [address] [address] Lorena Dennis MD, Performed at: =G - [facility] [address] [id number] Decontamination Worker: Lorena Dennis MD, Phone: [phone] Performed at: [facility] - [facility] [address] [facility], [place], [place] [id number] Decontamination Worker: Daron Winslow MD, Phone: [phone] SHENG-SUSAN [facility] Pre-Visit Planningon 025 Pre-Visit Planning Pre-Visit Planning From: Sulema Urbina To: Bambi Reynolds; Sent: 08/26/2024 11:21:21 EDT Subject: Pre-Visit Planning Due Date/Time: 08/26/2024 11:21:00 EDT Caller Name: GIA RUIZ Anthony; Caller Number: H [phone], M Praveen Lacy. During a pre-visit planning chart review, I [...] feel free to contact me at extension [phone]. Thank you and have a good weekend! Sulema Urbina LPN Clinical Dinkey Skinner [place] [address] Extension: [phone] [email or web address] Normal [facility] No Panel Informationon 06-08 Consent obtained: written (The rationale for Mohs as well as the risks, benefits, and alternatives. The risks of infection, scarring, bleeding, prolonged wound healing, incomplete removal, allergy to anesthesia or meds, nerve injury, and recurrence were addressed.) [place] Protocol: Procedure explained and questions answered to [...] sodium bicarbonate Procedure Details: Biopsy accession number: [id number] Biopsy lab: [facility] Date of biopsy: 04/12/2024 Frozen section biopsy [...] positive blocks: 0 (more content not included)... [facility] Healthcare No Panel InformationOrdered By: Paige Sepulveda on 06-08-2024 [facility] [employer] CHEMISTRYOrdered By: SYSTEM SYSTEM on 05-26-2024 Albumin [...] (Bld) [Mass fraction] 5.4 % Normal <=5.9% [facility] ChemAutoSS CMPon 05-26-2024 Albumin [Mass/Vol] 3.9 g/dL Normal 3.3-5.0 [facility] Comment on above: Performed By: #### 2 [id number] #### [facility] [address] [place] [address] Albumin/Globulin (S) [Mass conc ratio] 1.0 Low 1.1-2.2 [facility] Comment on above: Performed By: #### 2 [id number] #### [facility] [address] [place] [address] ALP [Catalytic activity/Vol] 57 Int._Unit/L Normal 21-98 [facility] Comment on above: Performed By: #### 2 [id number] #### [facility] [address] [place] [address] ALT No additional P-5'-P [Catalytic activity/Vol] 17 Int._Unit/L Normal 6-46 [facility] Comment on above: Performed By: #### 2 [id number] #### [facility] [address] [place] [address] Anion gap [Moles/Vol] 11 mmol/L Normal 6-16 [facility] Comment on above: Performed By: #### 2 [id number] #### [facility] [address] [place] [address] AST [Catalytic activity/Vol] 18 Int._Unit/L Normal 5-43 [facility] Comment on above: Performed By: #### 2 [id number] #### [facility] [address] [place] [address] Bilirubin [Mass/Vol] 0.6 mg/dL Normal 0.0-1.1 [facility] Comment on above: Performed By: #### 2 [id number] #### [facility] [address] [place] [address] Calcium [Mass/Vol] 9.1 mg/dL Normal 8.9-11.1 [facility] Comment on above: Performed By: #### 2 [id number] #### [facility] [address] [place] [address] Chloride [Moles/Vol] 98 mmol/L Low 101-111 [facility] Comment on above: Performed By: #### 2 [id number] #### [facility] [address] [place] [address] CO2 [Moles/Vol] 29 mmol/L Normal 21-31 [facility] Comment on above: Performed By: #### 2 [id number] #### [facility] [address] [place] [address] Creatinine [Mass/Vol] 0.8 mg/dL Normal 0.5-1.3 [facility] Comment on above: Performed By: #### 2 [id number] #### [facility] [address] [place] [address] Globulin (S) [Mass/Vol] 3.8 g/dL Normal 1.4-4.0 [facility] Comment on above: Performed By: #### 2 [id number] #### [facility] [address] [place] [address] Glucose [Mass/Vol] 77 mg/dL Normal 55-199 [facility] Comment on above: Performed By: #### 2 771561 #### [facility] [address] [place] [address] Potassium [Moles/Vol] 3.8 mmol/L Normal 3.5-5.3 [facility] Comment on above: Performed By: #### 2 600409 #### [facility] [address] [place] [address] Protein [Mass/Vol] 7.7 g/dL Normal 6.0-7.8 [facility] Comment on above: Performed By: #### 2 [id number] #### [facility] [address] [place] [address] Sodium [Moles/Vol] 134 mmol/L Low 135-145 [facility] Comment on above: Performed By: #### 2 726408 #### [facility] [address] [place] [address] Urea nitrogen [Mass/Vol] 18 mg/dL Normal 5-21 [facility] Comment on above: Performed By: #### 2 [id number] #### [facility] [address] [place] [address] Urea nitrogen/Creatinine [Mass ratio] 22 No Units High 10-20 [facility] Comment on above: Performed By: #### 2 [id number] #### [facility] [address] [place] [address] [id number] 05-26-2024 HbA1c (Bld) [Mass fraction] 5.4 % Normal <=5.9 [facility] Comment on above: Performed By: #### 7 [id number] #### [facility] [address] [place] [address] Lipid Panelon 05-26-2024 Cholesterol [Mass/Vol] 161 mg/dL Normal 120-200 [facility] Comment on above: Performed By: #### 2 [id number] #### [facility] [address] [place] [address] Cholesterol in HDL [Mass/Vol] 71 mg/dL Invalid Interpretation Code [facility] Comment on above: Result Comment: '>= 60 LOW RISK' '<= 40 HIGH RISK' Performed By: #### 2 [id number] #### [facility] [address] [place] [address] Cholesterol in LDL [Mass/Vol] 82 mg/dL Normal <=129 [facility] Comment on above: Performed By: #### 2 [id number] #### [facility] [address] [place] [address] Cholesterol in VLDL [Mass/Vol] 12 mg/dL Normal 7-40 [facility] Comment on above: Performed By: #### 2 [id number] #### [facility] [address] [place] [address] Triglyceride [Mass/Vol] 58 mg/dL Normal <=149 [facility] Comment on above: Performed By: #### 2 955592 #### [facility] [address] [place] [address] TSHon 05-26-2024 TSH Qn 0.82 m[IU]/L Normal 0.34-5.60 [facility] Comment on above: Performed By: #### 2 [id number] #### [facility] [address] [place] [address] U MA/Cr Ratioon 05-26-2024 Albumin DL <= 20 mg/L (U) [Mass/Vol] 0.9 mg/dL Normal 0.0-1.9 [facility] Comment on above: Performed By: #### 1 [id number] #### [facility] [address] [place] [address] Albumin/Creatinine DL <= 20 mg/L (U) [Mass ratio] 21.6 mg/gm Cr Normal .0-30.0 [facility] Comment on above: Result Comment: 30-3 00 mg/g Cr indicates an increased risk for diabetic nephropathy. >300 mg/g Cr is consistent with clinical nephropathy. Performed By: #### 1 [id number] #### [facility] [address] [place] [address] U Creatinine 41.7 mg/dL Invalid Interpretation Code [facility] Comment on above: Performed By: #### 1 [id number] #### [facility] [address] [place] [address] eGFRon 05-26-2024 eGFR 78 mL/min/1.73 m2 Normal >=59 [facility] Comment on above: Performed By: #### 1 [id number] #### [facility] [address] [place] [address] Ambulatory Visit Summaryon 0 05-19-2024 Ambulatory Visit Summary Ambulatory Visit Summary GIA RUIZ Anthony :1950 Visit Date:05/16/2024 Ambulatory Visit Instructions Your [...] Appointments 2024 9:00 AM EST With: Where: [address] [id number]- Thursday 10:00 AM EDT With: Bambi Reynolds Where: [address] [address]- Thursday 11:00 AM EDT With: Bertha BLAND MD Where: [facility] [address] [place] [address]- Thursday 1:00 PM EST With: Where: [address] [address]- You Need to Complete the Following Comprehensive [...] Medication (calc (more content not included)... Normal [facility] Family Medicine Office/Clini c Noteon 05-19-2024 [...] of clutter to prevent tripping and/or falling. [place] Advance Directives reviewed. Documents present in chart. [...] PCP visit. Labs to be completed with [facility]. No concerns with bowel/ bladder. Colonoscopy last [...] 4. Hyp (more content not included)... Normal [facility] Comment on above: Result Comment: Elec tronically Signed By: Bambi Reynolds\.peter\Date and Time Signed: 05/19/24 08:27 EST\.br\Electronically Co-Signed [...] taken Amount of lidocaine used: 0.5 cc [facility] No Panel InformationOrdered By: Jocelin Garcia on 04-12-2024 [facility] Ambulatory Visit Summaryon 1 Ambulatory Visit Summary Ambulatory Visit Summary GIA RUIZ Anthony :1950 Visit Date:03/15/2024 Ambulatory Visit Instructions Your Diagnosis Labial abscess Former smoker BMI 35.0-35.9,adult Obesity (BMI 35.0-39.9 without comorbidity) Your Care Team Attending Physician - Bambi Reynolds Primary Care Physician - Bambi Reynolds This Is Your Medications List [facility] (BACLOFEN 10 MG TABLET) acetaminophen (acetaminophen [...] Appointments 2023 1:00 PM EST With: Where: [facility] [address] [address]- Thursday 11:00 AM EDT With: EDWINA MOSLEY, Bertha Vu Where: [facility] [address] [address]- Medications What How Much When Instructions Unchanged [...] you for choosing us for your care. [facility] Ambulatory Visit Summary Ambulatory Visit Summary [...] Appointments 2023 1:00 PM EST With: Where: [facility] [address] [address]- Thursday 11:00 AM EDT With: EDWINA MOSLEY, Bertha Vu Where: [facility] [address] [place] [address]- Medications What How Much When Instructions Unchanged [...] for choosing us for your care. Normal [facility] Family Medicine Office/Clini c Noteon 03-15-2024 [...] q12hr, # 20 cap(s), Refills(s) 0, Pharmacy: [id number], 158, cm, 03/15/24 15:36:00 EDT, Height/Length Dosing, 87.9, kg, 03/15/24 15:36:00 EDT, Weight Dosing 2. Former smoker (Z87.891: Personal history of nicotine dependence) continue not smoking Ordered: cephalexin, 500 mg = 1 cap(s), Oral, q12hr, # 20 cap(s), Refills(s) 0, Pharmacy: [facility] #[id number], 158, cm, 03/15/24 15:36:00 EDT, Height/Length Dosing, 87.9, kg, 03/15/24 15:36:00 EDT, Weight Dosing 3. BMI 35.0-35.9,adult (Z68.35: Body mass index [BMI] 35.0-35.9, adult) BMI education Ordered: cephalexin, 500 mg = 1 cap(s), Oral, q12hr, # 20 cap(s), Refills(s) 0, Pharmacy: [facility]/pharmacy #[id number], 158, cm, 03/15/24 15:36:00 EDT, Height/Length Dosing, 87.9, kg, 03/15/24 15:36:00 EDT, Weight Dosing 4. Obesity (BMI 35.0-39.9 without comorbidity) (E66.9: Obesity, unspecified) see above Ordered: cephalexin, 500 mg = 1 cap(s), Oral, q12hr, # 20 cap(s), Refills(s) 0, Pharmacy: [facility]/pharmacy #[id number], 158, cm, 03/15/24 15:36:00 EDT, Height/Length [...] Heart disease: (more content not included)... Normal [facility] Comment on above: Result Comment: Elec [...] KUB -repeat KUB/TIM in 1 yr Ordered: 06858 Measure Post Void residual urine and/or bladder capacity by US- non-imaging Urnls Dip Stick Auto w/o Microscopy POC 99145 2. Incomplete bladder emptying (R33.9: Retention of urine, unspecified) PVR (cc): 02/13/23 - 120 (voided 45 min prior) 08/17/23 - 326 (did not perform double void maneuver) 09/14/23 - 105 mL (pt voided 30min prior) TODAY: 162ml No recent UTIs. Ordered: 25683 Measure Post Void residual urine and/or bladder [...] EDWINA MOSLEY, TEODORO Easley Within [address] [place] [address]- Additional Instructions: KUB & TIM prior Patient Education Kidney Stones, Gzxo-ot-Jwoe Problem List/Past Medical History Ongoing Asymptomatic microscopic [...] 2.5 mg, SubCutaneous, qWeek omeprazole 20 mg Kyle-, See Instructions ondansetron 8 mg Tab, 8 mg= 1 tab(s), (more content not included)... [facility] Comment on above: Result Comment: Elec tronically Signed By: NAS MG, MICAH Lima\.peter\Date and Time Signed: 02/18/24 13:25 EDT Reminderson [...] for KUB. results in chart for review [facility] C Urineon 01-23-2024 Bacteria identified Cx Nom [...] Locations R1: This test was performed at: [facility], [address] [place] [address], [address] , , [facility] Comment on above: Performed By: #### 2 [id number] #### [facility] [address] [place] [address] Ambulatory Visit Summaryon 0 01-21-2024 Ambulatory Visit Summary Ambulatory Visit Summary GIA RUIZ :1950 Visit Date:01/21/2024 Ambulatory Visit Instructions Your [...] MOSLEY, Bertha Vu Where: [facility] [address] [place] [address] 2023 1:00 PM EST With: Where: [facility] [place] [address] [place] [address]- Medications What How Much When Instructions Unchanged [...] your survey. (more content not included)... Normal [facility] Medicine Office/Clini c Noteon 01-21-2024 Family [...] Urnls Dip Stick Auto w/o Microscopy POC 20598 2. Urinary frequency (R35.0: Frequency of micturition) see above Ordered: Urine Culture Urnls Dip Stick Auto w/o Microscopy POC 95482 3. Former smoker (Z87.891: Personal history of nicotine dependence) continue not smoking Ordered: Urnls Dip Stick Auto w/o Microscopy POC 66338 4. BMI 34.0-34.9,adult (Z68.34: Body mass index [BMI] 34.0-34.9, adult) BMI education Ordered: Urnls Dip Stick Auto w/o Microscopy POC 51101 5. Class 1 obesity due to excess calories in adult (E66.09: Other obesity due to excess calories) see above Ordered: Urnls Dip Stick Auto w/o Microscopy POC [address] Orders: ciprofloxacin, 500 mg = 1 tab(s), Oral, q12hr, X 7 day(s), # 14 tab(s), Refills(s) 0, Pharmacy: [facility], 158, cm, 01/21/24 10:49:00 EDT, Height/Length Dosing, 86.1, kg, 01/21/24 10:49:00 EDT, Weight Dosing ciprofloxacin, 500 mg = 1 tab(s), Oral, q12hr, X 7 day(s), # 14 tab(s), Refills(s) 0, Pharmacy: [facility]/pharmacy #[id number], 158, cm, 01/21/24 10:49:00 EDT, Height/Length [...] and Br (more content not included)... Normal [facility] Comment on above: Result Comment: Elec tronically Signed By: Bambi Reynolds\.br\Date and Time Signed: 01/21/24 11:10 EDT Consultation Noteon 11-05-19 Consultation Note [id number]#1.00 TIFF Zackary Barros [facility] Ambulatory Visit Summaryon 0 10-05-2023 Ambulatory Visit [...] MOSLEY, Bertha Vu Where: [facility] [address] [place] [id number] \.br\ Medications\.br\ What How Much When Instructions\.br [...] for choosing us for your care.\.br\ \.br\ [facility] Auth for Release of Medical Recordson 10-05-2023 Auth for Release of Medical Records [id number]#1.0 0TIFF Normal [facility] Consultation Noteon 10-05-19 Consultation Note [id number]#1.0 0TIFF Normal [facility] Family Medicine Office/Clini c Noteon 10-05-2023 Family Medicine Office/Clinic Note HPI Staff Gia is a 73 year old female presenting for Surgical Clearance Pt having left knee surgery on 10/22/[address] Cárdenas Pt [place] pre surgical [place] [facility] did blood work, urine, test, ekg sent records request for labs [place] [facility] History of Present Illness pt presents today [...] virus vaccine, inactivated 04/21/2022 Recorded SARS-CoV-2 (COVID-19) [id number].[id number] 04/21/2022 Recorded influenza virus vaccine, inactivated 03/15/2021 Recorded SARS-CoV-2 (COVID-19) mRNA BNT-162b2 vax 03/15/2021 Recorded 2022-09-17: [id number] SARS-CoV-2 (COVID-19) mRNA BNT-162b2 vax 08/08/2020 Given SARS-CoV-2 (COVID-19) mRNA BNT-162b2 vax 07/11/2020 Given zoster vaccine, inactivated 07/01/2019 Recorded zoster vaccine, inactivated 04/30/2019 Recorded influenza virus vaccine, inactivated 04/30/2019 Recorded Normal [facility] Comment on above: Result Comment: Elec tronically Signed By: Bambi Reynolds\.br\Date and Time Signed: 10/05/23 11:37 EDT Lab Reportson 10-05-2023 Lab Reports [id number]#1.00 TIFF Normal [facility] Provider Letteron 10-05-2023 Provider Letter [address] [place], [place] [id number] October 05, 2023 GIA RUIZ [address] [place] [address] : [address] Cárdenas, The above patient has been evaluated at your request for preoperative clearance. After assessment of available pertinent labs and diagnostic tests, I feel this patient is medically optimized for surgery. Final discretion of whether the patient is cleared for surgery remains up to the surgeon/anesthesiologi st. Thank you, CHUYITA Suresh Normal [facility] ECG 12-Leadon 10-02-2023 ECG 12-Lead [id number]#1.00 TIFF Normal [facility] Activated partial thrombopla stin time (aPTT) in platelet poor plasma by coagulation aOrdered By: Rosalinda Bernstein on 09-30-2023 aPTT Coag (PPP) [Time] 35.6 s 25.1-36.5 [facility] Comment on above: A hematocrit value g reater than 55% may lead to inaccurate results in coagulation testing. Patients having hematocrit values >55% require a special collection tube for coagulation studies. Please contact the laboratory at [phone] for redraw instructions. Alanine aminotransferase [En zymatic activity/volume] in Serum or PlasmaOrdered By: Rosalinda Bernstein on 09-30-2023 ALT [Catalytic activity/Vol] 17 U/L 7-52 [facility] Albumin [Mass/volume] in Ser um or Plasma by Bromocresol green (BCG) dye binding methoOrdered By: Rosalinda Bernstein on 09-30-2023 Albumin BCG dye [Mass/Vol] 4.2 g/dL 3.5-5.7 [facility] Alkaline phosphatase [Enzyma tic activity/volume] in Serum or PlasmaOrdered By: Rosalinda Bernstein on 09-30-2023 ALP [Catalytic activity/Vol] 46 U/L 34-104 [facility] Aspartate aminotransferase [ Enzymatic activity/volume] in Serum or PlasmaOrdered By: Rosalinda Bernstein on 09-30-2023 AST [Catalytic activity/Vol] 14 U/L 13-39 [facility] Basophils Auto (Bld) [#/Vol] Ordered By: Rosalinda Bernstein on 09-30-2023 Basophils (Bld) [#/Vol] 0.1 10*3/uL 0.0-0.2 [facility] Basophils/100 WBC Auto (Bld) Ordered By: Rosalinda Bernstein on 09-30-2023 Basophils/100 WBC (Bld) 0.8 % . [facility] Bilirubin Test strip Ql (U)O rdered By: Rosalinda Bernstein on 09-30-2023 Bilirubin Ql (U) Negative Negative [facility] Bilirubin.total [Mass/volume ] in Serum or PlasmaOrdered By: Rosalinda Bernstein on 09-30-2023 Bilirubin [Mass/Vol] 0.4 mg/dL 0.3-1.[address] [facility] Calcium [Mass/volume] in Ser um or PlasmaOrdered By: Rosalinda Bernstein on 09-30-2023 Calcium [Mass/Vol] 9.3 mg/dL 8.6-10.3 [facility] Carbon dioxide, total [Moles /volume] in Serum or PlasmaOrdered By: Rosalinda Bernstein on 09-30-2023 CO2 [Moles/Vol] 28.2 mmol/L 21.0-31.0 [facility] Chloride [Moles/volume] in S soni or PlasmaOrdered By: Rosalinda Bernstein on 09-30-2023 Chloride [Moles/Vol] 95 mmol/L 98-[address] [facility] Color Auto (U)Ordered By: Vasyl kulkarnibolivarluli Bernstein on 09-30-2023 Color (U) Yellow Yellow [facility] Creatinine [Mass/volume] in Serum or PlasmaOrdered By: Rosalinda Bernstein on 09-30-2023 Creatinine [Mass/Vol] 0.70 mg/dL 0.60-1.20 [facility] Eosinophils Auto (Bld) [#/Vo l]Ordered By: Rosalinda Bernstein on 09-30-2023 Eosinophils (Bld) [#/Vol] 0.2 10*3/uL 0.0-0.45 [facility] Eosinophils/100 WBC Auto (Bl d)Ordered By: Rosalinda Bernstein on 09-30-2023 Eosinophils/100 WBC (Bld) 3.1 % . [facility] Erythrocyte distribution wid th Auto (RBC) [Ratio]Ordered By: Rosalinda Bernstein on 09-30-2023 Erythrocyte distribution width (RBC) [Ratio] 13.2 % 11.9-15.3 [facility] Globulin Calc (S) [Mass/Vol] Ordered By: Rosalinda Bernstein on 09-30-2023 Globulin (S) [Mass/Vol] 3.5 g/dL [facility] Glucose [Mass/volume] in Ser um or PlasmaOrdered By: Rosalinda Bernstein on 09-30-2023 Glucose [Mass/Vol] 80 mg/dL 70-100 [facility] Comment on above: ADA recommended refe rence [...] hemoglobin (Bld) [Mass/Vol] 120 mg/dL [facility] Hematocrit Auto (Bld) [Volum e fraction]Ordered By: Rosalinda Bernstein on 09-30-2023 Hematocrit (Bld) [Volume fraction] 38.1 % 34.0-46.4 [facility] Hemoglobin A1c percentageOrd ered By: Rosalinda Bernstein on 09-30-2023 HbA1c (Bld) [Mass fraction] 5.8 % 4.3-5.6 [facility] Comment on above: Increased risk for d iabetes: 5.7 - 6.4diabetes: >6.4glycemic control for adults with diabetes: <7.0 Hemoglobin [Mass/volume] in BloodOrdered By: Rosalinda Bernstein on 09-30-2023 Hemoglobin (Bld) [Mass/Vol] 12.9 g/dL 11.8-15.4 [facility] INR in Platelet poor plasma by Coagulation assayOrdered By: Rosalinda Bernstein on 09-30-2023 INR Coag (PPP) [Relative time] 1.0 {INR} [facility] Comment on above: INR Therapeutic [...] Ketones (U) [Mass/Vol] Negative Negative [facility] Leukocytes [#/volume] correc lisa for nucleated erythrocytes in Blood by Automated counOrdered By: Rosalinda Bernstein on 09-30-2023 WBC corrected for nucl RBC Auto (Bld) [#/Vol] 7.3 10*3/uL 3.8-11.6 [facility] Lymphocytes Auto (Bld) [#/Vo l]Ordered By: Rosalinda Bernstein on 09-30-2023 Lymphocytes (Bld) [#/Vol] 3.6 10*3/uL 1.00-4.8 [facility] Lymphocytes/100 WBC Auto (Bl d)Ordered By: Rosalinda Bernstein on 09-30-2023 Lymphocytes/100 WBC (Bld) 49.4 % . [facility] MCH Auto (RBC) [Entitic mass ]Ordered By: Rosalinda Bernstein on 09-30-2023 MCH (RBC) [Entitic mass] 29.7 pg 24.7-34.3 [facility] MCHC Auto (RBC) [Mass/Vol]Or dered By: Rosalinda Bernstein on 09-30-2023 MCHC (RBC) [Mass/Vol] 33.9 g/dL 32.0-35.0 [facility] MCV Auto (RBC) [Entitic vol] Ordered By: Rosalinda Bernstein on 09-30-2023 MCV (RBC) [Entitic vol] 87.5 fL 80-100 [facility] Monocytes Auto (Bld) [#/Vol] Ordered By: Rosalinda Bernstein on 09-30-2023 Monocytes (Bld) [#/Vol] 0.5 10*3/uL 0.0-0.8 [facility] Monocytes/100 WBC Auto (Bld) Ordered By: Rosalinda Bernstein on 09-30-2023 Monocytes/100 WBC (Bld) 7.4 % . [facility] Neutrophils Auto (Bld) [#/Vo l]Ordered By: Rosalinda Bernstein on 09-30-2023 Neutrophils (Bld) [#/Vol] 2.9 10*3/uL 1.8-7.7 [facility] Neutrophils/100 WBC Auto (Bl d)Ordered By: Rosalinda Bernstein on 09-30-2023 Neutrophils/100 WBC (Bld) 39.3 % . [facility] Nitrite Test strip Ql (U)Ord ered By: Rosalinda Bernstein on 09-30-2023 Nitrite Ql (U) Negative Negative [facility] No Panel InformationOrdered By: Rosalinda Bernstein on 09-30-2023 Estimated GFR (CKD-EPI) > 60.0 mL/Min [facility] Pharmacy Creatinine Clearance (Chem N/A [facility] Nucleated erythrocytes [Pres ence] in Blood by Automated countOrdered By: Rosalinda Bernstein on 09-30-2023 Nucleated RBC Auto Ql (Bld) 0.1 /100{WBC} 0-0.5 [facility] [facility] Platelet mean volume Auto (B ld) [Entitic vol]Ordered By: Rosalinda Bernstein on 09-30-2023 Platelet mean volume (Bld) [Entitic vol] 7.0 fL 6.3-10.7 [facility] Platelets Auto (Bld) [#/Vol] Ordered By: Rosalinda Bernstein on 09-30-2023 Platelets (Bld) [#/Vol] 320 10*3/uL 150-450 [facility] Potassium [Moles/volume] in Serum or PlasmaOrdered By: Rosalinda Bernstein on 09-30-2023 Potassium [Moles/Vol] 4.2 mmol/L 3.5-5.1 [facility] Protein Auto test strip (U) [Mass/Vol]Ordered By: Rosalinda Bernstein on 09-30-2023 Protein (U) [Mass/Vol] Negative Negative [facility] Protein [Mass/volume] in Ser um or PlasmaOrdered By: Rosalinda Bernstein on 09-30-2023 Protein [Mass/Vol] 7.7 g/dL 6.4-8.9 [facility] Prothrombin time (PT)Ordered By: Rosalinda Bernstein on 09-30-2023 PT Coag (PPP) [Time] 11.1 s 9.0-12.[address] [facility] Comment on above: A hematocrit value g reater than 55% may lead to inaccurate results in coagulation testing. Patients having hematocrit values >55% require a special collection tube for coagulation studies. Please contact the laboratory at [phone] for redraw instructions. RBC Auto (Bld) [#/Vol]Ordere d By: Rosalinda Bernstein on 09-30-2023 RBC (Bld) [#/Vol] 4.35 10*6/uL 3.60-5.00 [facility] Serum or plasma albumin/glob ulin mass ratioOrdered By: Rosalinda Bernstein on 09-30-2023 Albumin/Globulin [Mass ratio] 1.2 {ratio} [facility] Serum or plasma anion gap de terminationOrdered By: Rosalinda Bernstein on 09-30-2023 Anion gap [Moles/Vol] 12.0 mmol/L 6.0-15.0 [facility] Sodium [Moles/volume] in Ser um or PlasmaOrdered By: Rosalinda Bernstein on 09-30-2023 Sodium [Moles/Vol] 131 mmol/L 136-145 [facility] Specific gravity Auto test s trip (U) [Rel density]Ordered By: Rosalinda Bernstein on 09-30-2023 Specific gravity (U) [Rel density] 1.006 1.001-1.030 [facility] Urea nitrogen [Mass/volume] in Serum or PlasmaOrdered By: Rosalinda Bernstein on 09-30-2023 Urea nitrogen [Mass/Vol] 9 mg/dL 7-25 [facility] Urine clarity by refractomet ry automatedOrdered By: Rosalinda Bernstein on 09-30-2023 Clarity Refractometry automated (U) Clear Clear [facility] Urine glucose measurement by automated test strip (mass/volume)Ordered By: Rosalinda Bernstein on 09-30-2023 Glucose Auto test strip (U) [Mass/Vol] Normal mg/dL Normal [facility] Urine hemoglobin detection b y automated test stripOrdered By: Rosalinda Bernstein on 09-30-2023 Hemoglobin Auto test strip Ql (U) Negative Negative [facility] Urine leukocyte esterase det ection by automated test stripOrdered By: Rosalinda Bernstein on 09-30-2023 Leukocyte esterase Auto test strip Ql (U) Negative Negative [facility] Urobilinogen Auto test strip (U) [Mass/Vol]Ordered By: Rosalinda Bernstein on 09-30-2023 Urobilinogen (U) [Mass/Vol] Normal mg/dL Normal [facility] WBC Auto (Bld) [#/Vol]Ordere d By: Rosalinda Bernstein on 09-30-2023 WBC (Bld) [#/Vol] 7.3 10*3/uL 3.8-11.6 [facility] pH Auto test strip (U)Ordere d By: Rosalinda Bernstein on 09-30-2023 pH (U) 7.0 [pH] 5.0-9.0 [facility] Ambulatory Visit Summaryon 0 09-14-2023 Ambulatory Visit Summary GIA RUIZ Anthony :1950 Visit Date:09/14/2023 Ambulatory Visit Instructions Your [...] 11:20 AM EDT With: Bambi Reynolds Where: [facility] Invalid Interpretation Code [address] [place] [address]- \.br\ 2023 1:00 PM EST \.br\ With:\.br\ Where: [facility] Consultation Noteon 09-09-19 Consultation Note [id number]#1.0 0TIFF Normal [facility] Consultation Noteon 09-04-19 Consultation Note [id number]#1.0 0TIFF Normal [facility] Ambulatory Visit Summaryon 0 08-26-2023 Ambulatory Visit Summary GIA RUIZ Anthony :1950 Visit Date:08/26/2023 Ambulatory Visit Instructions Your [...] AM EDT With: Where: [facility] Invalid Interpretation Code [address] [place] [address]- \.br\ 2023 1:00 PM EST \.br\ With:\.br\ Where: [facility] Family Medicine [facility] [place] Family Medicine Office/Clini c Noteon 08-26-2023 Family Medicine Office/Clinic Note HPI Staff Gia is a 73 year old female presenting to discuss medication pt wanting to discuss monjaro A1c: 07/21/23 5.9 pt has been seeing Dr young in [place] for weight loss had been taking Phentermine [...] Daily, # 90 tab(s), Refills(s) 1, Pharmacy: [facility], 159, cm, 05/13/23 14:24:00 EST, Height/Length Dosing, 95.1, kg, 05/13/23 14:24:00 EST, Weight Dosing atorvastatin, 20 mg = 1 tab(s), Oral, Daily, X 90 day(s), # 90 tab(s), Refills(s) 3, Pharmacy: [facility], 158, cm, 08/26/23 10:12:00 EDT, Height/Length Dosing, 97.5, kg, 08/26/23 10:12:00 EDT, Weight Dosing levothyroxine, 125 mcg = 1 tab(s), Oral, Daily, # 7 tab(s), Refills(s) 0, Pharmacy: [facility]/pharmacy #[id number], 159, cm, 05/13/23 14:24:00 EST, Height/Length [...] virus vaccine, inactivated 04/21/2022 Recorded SARS-CoV-2 (COVID-19) [id number] 04/21/2022 Recorded influenza virus vaccine, inactivated 03/15/2021 Recorded SARS-CoV-2 (COVID-19) mRNA BNT-162b2 vax 03/15/2021 Recorded (more content not included)... Normal [facility] Comment on above: Result Comment: Elec [...] physician. Your Care Team Attending Physician - Bertha BLAND MD Primary Care Physician - Bambi Reynolds This [...] AM EDT With: Where: [facility] Invalid Interpretation Code [address] [place] [address]- \.br\ Thursday 1:00 PM EST \.br\ With:\.br\ Where: [facility] Family Medicine [facility] [place] Patient Education 08-17-19 Patient Education Obstetrics and Gynecology Acute [...] these instructions at home: Medicines ? Take rcht-xsg-safgcyk and prescription medicines only as told by [...] provider. Document Revised: 01/23/2021 Document Reviewed: 01/23/2021 [employer] Patient Education ? 2022 [employer] Zackary [facility] Urology Office/Clinic Noteon 08-17-2023 Urology Office/Clinic [...] URL [facility] [address], [place] [address]- [phone] Additional Instructions: 6 mos w/ KUB and [...] Oral, Da (more content not included)... Normal [facility] Comment on above: Result Comment: Elec tronically Signed By: Bertha BLAND MD\.br\Date and Time Signed: 08/17/23 12:34 EDT\.br\Electronically Co-Signed By: Nusrat Vernon\.br\Date and Time Co-Signed: 08/17/23 12:32 EDT Consultation Noteon 08-14-19 Consultation Note [id number]#1.0 0TIFF Normal [facility] Basophils Auto (Bld) [#/Vol] Ordered By: Cesar Estrada on 08-13-2023 Basophils (Bld) [#/Vol] 0.1 10*3/uL 0.0-0.2 [facility] Basophils/100 WBC Auto (Bld) Ordered By: Cesar Estrada on 08-13-2023 Basophils/100 WBC (Bld) 0.8 % . [facility] C reactive protein [Mass/vol ume] in Serum or PlasmaOrdered By: Cesar Estrada on 08-13-2023 CRP [Mass/Vol] < 0.5 mg/dL 0.0-0.5 [facility] Eosinophils Auto (Bld) [#/Vo l]Ordered By: Cesar Estrada on 08-13-2023 Eosinophils (Bld) [#/Vol] 0.3 10*3/uL 0.0-0.45 [facility] Eosinophils/100 WBC Auto (Bl d)Ordered By: Cesar Estrada on 08-13-2023 Eosinophils/100 WBC (Bld) 3.2 % . [facility] Erythrocyte distribution wid th Auto (RBC) [Ratio]Ordered By: Cesar Estrada on 08-13-2023 Erythrocyte distribution width (RBC) [Ratio] 13.8 % 11.9-15.3 [facility] Hematocrit Auto (Bld) [Volum e fraction]Ordered By: Cesar Estrada on 08-13-2023 Hematocrit (Bld) [Volume fraction] 36.9 % 34.0-46.4 [facility] Hemoglobin [Mass/volume] in BloodOrdered By: Cesar Estrada on 08-13-2023 Hemoglobin (Bld) [Mass/Vol] 12.2 g/dL 11.8-15.4 [facility] Leukocytes [#/volume] correc lisa for nucleated erythrocytes in Blood by Automated counOrdered By: Cesar Estrada on 08-13-2023 WBC corrected for nucl RBC Auto (Bld) [#/Vol] 8.5 10*3/uL 3.8-11.6 [facility] Lymphocytes Auto (Bld) [#/Vo l]Ordered By: Cesar Estrada on 08-13-2023 Lymphocytes (Bld) [#/Vol] 3.3 10*3/uL 1.00-4.8 [facility] Lymphocytes/100 WBC Auto (Bl d)Ordered By: Cesar Estrada on 08-13-2023 Lymphocytes/100 WBC (Bld) 38.8 % . [facility] MCH Auto (RBC) [Entitic mass ]Ordered By: Cesar Estrada on 08-13-2023 MCH (RBC) [Entitic mass] 29.4 pg 24.7-34.3 [facility] MCHC Auto (RBC) [Mass/Vol]Or dered By: Cesar Estrada on 08-13-2023 MCHC (RBC) [Mass/Vol] 33.1 g/dL 32.0-35.0 [facility] MCV Auto (RBC) [Entitic vol] Ordered By: Cesar Estrada on 08-13-2023 MCV (RBC) [Entitic vol] 88.8 fL 80-100 [facility] Monocytes Auto (Bld) [#/Vol] Ordered By: Cesar Estrada on 08-13-2023 Monocytes (Bld) [#/Vol] 0.8 10*3/uL 0.0-0.8 [facility] Monocytes/100 WBC Auto (Bld) Ordered By: Cesar Estrada on 08-13-2023 Monocytes/100 WBC (Bld) 9.8 % . [facility] Neutrophils Auto (Bld) [#/Vo l]Ordered By: Cesar Estrada on 08-13-2023 Neutrophils (Bld) [#/Vol] 4.0 10*3/uL 1.8-7.7 [facility] Neutrophils/100 WBC Auto (Bl d)Ordered By: Cesar Estrada on 08-13-2023 Neutrophils/100 WBC (Bld) 47.4 % . [facility] Nucleated erythrocytes [Pres ence] in Blood by Automated countOrdered By: Cesar Estrada on 08-13-2023 Nucleated RBC Auto Ql (Bld) 0.1 /100{WBC} 0-0.5 [facility] Platelet mean volume Auto (B ld) [Entitic vol]Ordered By: Cesar Estrada on 08-13-2023 Platelet mean volume (Bld) [Entitic vol] 6.8 fL 6.3-10.7 [facility] Platelets Auto (Bld) [#/Vol] Ordered By: Cesar Estrada on 08-13-2023 Platelets (Bld) [#/Vol] 309 10*3/uL 150-450 [facility] RBC Auto (Bld) [#/Vol]Ordere d By: Cesar Estrada on 08-13-2023 RBC (Bld) [#/Vol] 4.16 10*6/uL 3.60-5.00 [facility] WBC Auto (Bld) [#/Vol]Ordere d By: Cesar Estrada on 08-13-2023 WBC (Bld) [#/Vol] 8.5 10*3/uL 3.8-11.6 [facility] Outside Diabetes Eye Examon 08-06-2023 Outside Diabetes Eye Exam [id number]#1.0 0TIFF Normal [facility] Consultation Noteon 06-11-19 Consultation Note [id number]#1.0 0TIFF Normal [facility] CHEMISTRYOrdered By: Serenity tejeda on 05-13-2023 [...] Estrada on 03-31-2023 Glucose [Mass/Vol] 96 mg/dL [facility] Comment on above: Random Glucose Refer ence Range is dependent on time and content of last meal. Glucose of more than 200 mg/dL in a nonstressed, ambulatory subject supports the diagnosis of Diabetes Mellitus. Glucose Glucometer (BldC) [M ass/Vol]Ordered By: Cesar Estrada on 03-12-2023 Glucose [Mass/Vol] 94 mg/dL [facility] Comment on above: Random Glucose Refer ence Range is dependent on time and content of last meal. Glucose of more than 200 mg/dL in a nonstressed, ambulatory subject supports the diagnosis of Diabetes Mellitus. Basophils Auto (Bld) [#/Vol] Ordered By: Adriana Cárdenas on 11-24-2022 Basophils (Bld) [#/Vol] 0.1 10*3/uL 0.0-0.2 [facility] Basophils/100 WBC Auto (Bld) Ordered By: Adriana Cárdenas on 11-24-2022 Basophils/100 WBC (Bld) 1.3 % . [facility] Bilirubin Test strip Ql (U)O rdered By: Adriana Cárdenas on 11-24-2022 Bilirubin Ql (U) Negative Negative [facility] Calcium [Mass/volume] in Ser um or PlasmaOrdered By: Adriana Cárdenas on 11-24-2022 Calcium [Mass/Vol] 9.4 mg/dL 8.6-10.3 [facility] Carbon dioxide, total [Moles /volume] in Serum or PlasmaOrdered By: Adriana Cárdenas on 11-24-2022 CO2 [Moles/Vol] 31.1 mmol/L 21.0-31.0 [facility] Chloride [Moles/volume] in S soni or PlasmaOrdered By: Adriana Cárdenas on 11-24-2022 Chloride [Moles/Vol] 95 mmol/L 98-[address] [facility] Color Auto (U)Ordered By: Darien Cárdenas on 11-24-2022 Color (U) Yellow Yellow [facility] Creatinine [Mass/volume] in Serum or PlasmaOrdered By: Adriana Cárdenas on 11-24-2022 Creatinine [Mass/Vol] 0.68 mg/dL 0.60-1.20 [facility] Eosinophils Auto (Bld) [#/Vo l]Ordered By: Adriana Cárdenas on 11-24-2022 Eosinophils (Bld) [#/Vol] 0.3 10*3/uL 0.0-0.45 [facility] Eosinophils/100 WBC Auto (Bl d)Ordered By: Adriana Cárdenas on 11-24-2022 Eosinophils/100 WBC (Bld) 4.1 % . [facility] Erythrocyte distribution wid th Auto (RBC) [Ratio]Ordered By: Adriana Cárdenas on 11-24-2022 Erythrocyte distribution width (RBC) [Ratio] 13.0 % 11.9-15.3 [facility] Glucose [Mass/volume] in Ser um or PlasmaOrdered By: Adriana Cárdenas on 11-24-2022 Glucose [Mass/Vol] 94 mg/dL 70-100 [facility] Comment on above: ADA recommended refe rence [...] hemoglobin (Bld) [Mass/Vol] 126 mg/dL [facility] Hematocrit Auto (Bld) [Volum e fraction]Ordered By: Adriana Cárdenas on 11-24-2022 Hematocrit (Bld) [Volume fraction] 36.8 % 34.0-46.4 [facility] Hemoglobin A1c percentageOrd ered By: Adriana Cárdenas on 11-24-2022 HbA1c (Bld) [Mass fraction] 6.0 % 4.3-5.6 [facility] Comment on above: Increased risk for d iabetes: 5.7 - 6.4diabetes: >6.4glycemic control for adults with diabetes: <7.0 Hemoglobin [Mass/volume] in BloodOrdered By: Adriana Cárdenas on 11-24-2022 Hemoglobin (Bld) [Mass/Vol] 12.5 g/dL 11.8-15.4 [facility] Ketones Auto test strip (U) [Mass/Vol]Ordered By: Adriana Cárdenas on 11-24-2022 Ketones (U) [Mass/Vol] Negative Negative [facility] Leukocytes [#/volume] correc lisa for nucleated erythrocytes in Blood by Automated counOrdered By: Adriana Cárdenas on 11-24-2022 WBC corrected for nucl RBC Auto (Bld) [#/Vol] 7.7 10*3/uL 3.8-11.6 [facility] Lymphocytes Auto (Bld) [#/Vo l]Ordered By: Adriana Cárdenas on 11-24-2022 Lymphocytes (Bld) [#/Vol] 2.6 10*3/uL 1.00-4.8 [facility] Lymphocytes/100 WBC Auto (Bl d)Ordered By: Adriana Cárdenas on 11-24-2022 Lymphocytes/100 WBC (Bld) 34.2 % . [facility] MCH Auto (RBC) [Entitic mass ]Ordered By: Adriana Cárdenas on 11-24-2022 MCH (RBC) [Entitic mass] 29.8 pg 24.7-34.3 [facility] MCHC Auto (RBC) [Mass/Vol]Or dered By: Adriana Cárdenas on 11-24-2022 MCHC (RBC) [Mass/Vol] 33.9 g/dL 32.0-35.0 [facility] MCV Auto (RBC) [Entitic vol] Ordered By: Adriana Cárdenas on 11-24-2022 MCV (RBC) [Entitic vol] 87.8 fL 80-100 [facility] Monocytes Auto (Bld) [#/Vol] Ordered By: Adriana Cárdenas on 11-24-2022 Monocytes (Bld) [#/Vol] 1.0 10*3/uL 0.0-0.8 [facility] Monocytes/100 WBC Auto (Bld) Ordered By: Adriana Cárdenas on 11-24-2022 Monocytes/100 WBC (Bld) 12.4 % . [facility] Neutrophils Auto (Bld) [#/Vo l]Ordered By: Adriana Cárdenas on 11-24-2022 Neutrophils (Bld) [#/Vol] 3.7 10*3/uL 1.8-7.7 [facility] Neutrophils/100 WBC Auto (Bl d)Ordered By: Adriana Cárdenas on 11-24-2022 Neutrophils/100 WBC (Bld) 48.0 % . [facility] Nitrite Test strip Ql (U)Ord ered By: Adriana Cárdenas on 11-24-2022 Nitrite Ql (U) Negative Negative [facility] No Panel InformationOrdered By: Adriana Cárdenas on 11-24-2022 Estimated GFR (CKD-EPI) > 60.0 mL/Min [facility] Pharmacy Creatinine Clearance (Chem N/A [facility] Nucleated erythrocytes [Pres ence] in Blood by Automated countOrdered By: Adriana Cárdenas on 11-24-2022 Nucleated RBC Auto Ql (Bld) 0.1 /100{WBC} 0-0.5 [facility] Platelet mean volume Auto (B ld) [Entitic vol]Ordered By: Adriana Cárdenas on 11-24-2022 Platelet mean volume (Bld) [Entitic vol] 6.9 fL 6.3-10.7 [facility] Platelets Auto (Bld) [#/Vol] Ordered By: Adriana Cárdenas on 11-24-2022 Platelets (Bld) [#/Vol] 305 10*3/uL 150-450 [facility] Potassium [Moles/volume] in Serum or PlasmaOrdered By: Adriana Cárdenas on 11-24-2022 Potassium [Moles/Vol] 4.5 mmol/L 3.5-5.1 [facility] Protein Auto test strip (U) [Mass/Vol]Ordered By: Adriana Cárdenas on 11-24-2022 Protein (U) [Mass/Vol] Negative Negative [facility] RBC Auto (Bld) [#/Vol]Ordere d By: Adriana Cárdenas on 11-24-2022 RBC (Bld) [#/Vol] 4.19 10*6/uL 3.60-5.00 [facility] Serum or plasma anion gap de terminationOrdered By: Adriana Cárdenas on 11-24-2022 Anion gap [Moles/Vol] 9.4 mmol/L 6.0-15.0 [facility] Sodium [Moles/volume] in Ser um or PlasmaOrdered By: Adriana Cárdenas on 11-24-2022 Sodium [Moles/Vol] 131 mmol/L 136-145 [facility] Specific gravity Auto test s trip (U) [Rel density]Ordered By: Adriana Cárdenas on 11-24-2022 Specific gravity (U) [Rel density] 1.006 1.001-1.030 [facility] Urea nitrogen [Mass/volume] in Serum or PlasmaOrdered By: Adriana Cárdenas on 11-24-2022 Urea nitrogen [Mass/Vol] 18 mg/dL 7-25 [facility] Urine clarity by refractomet ry automatedOrdered By: Adriana Cárdenas on 11-24-2022 Clarity Refractometry automated (U) Clear Clear [facility] Urine glucose measurement by automated test strip (mass/volume)Ordered By: Adriana Cárdenas on 11-24-2022 Glucose Auto test strip (U) [Mass/Vol] Normal mg/dL Normal [facility] Urine hemoglobin detection b y automated test stripOrdered By: Adriana Cárdenas on 11-24-2022 Hemoglobin Auto test strip Ql (U) Negative Negative [facility] Urine leukocyte esterase det ection by automated test stripOrdered By: Adriana Cárdenas on 11-24-2022 Leukocyte esterase Auto test strip Ql (U) Negative Negative [facility] Urobilinogen Auto test strip (U) [Mass/Vol]Ordered By: Adriana Cárdenas on 11-24-2022 Urobilinogen (U) [Mass/Vol] Normal mg/dL Normal [facility] WBC Auto (Bld) [#/Vol]Ordere d By: Adriana Cárdenas on 11-24-2022 WBC (Bld) [#/Vol] 7.7 10*3/uL 3.8-11.6 [facility] pH Auto test strip (U)Ordere d By: Adriana Cárdenas on 11-24-2022 pH (U) 7.0 [pH] 5.0-9.0 [facility] CT ABD/PELVIS WO CONon 08-19 [...] by: NICOLE BONE Date: 2022-08-19 11:00 Normal [facility] XR DEXA BONE DENSITYon 08-19 [...] authenticated by: NICOLE BONE Date: 2022-08-19 09:19 [facility] PAP ACOG PANEL 2: 30 to 65on 08-18-2022 . . Normal [facility] Comment on above: Performed By: #### [id number] #### [facility] [address] [address] [address] Sol Friend Age Gdln ACOG Testing Comment Normal [facility] Comment on above: Result Comment: <21 or >65 or no age provided Performed By: #### [id number] #### [facility] [address] [address] [address] Sol Friend DIAGNOSIS: Comment Normal [facility] Comment on above: Result Comment: NEGA TIVE FOR INTRAEPITHELIAL LESION OR MALIGNANCY. CELLULAR CHANGES ASSOCIATED WITH ATROPHY AND INFLAMMATION ARE PRESENT. Performed By: #### [id number] #### [facility] [address] [address] [address] Sol Friend Methodology: Comment [facility] Comment on above: Result Comment: This liquid based ThinPrep(R) pap test was screened with the use of an image guided system. Performed By: #### [id number] #### [facility] [address] [address] [address] Sol Friend Note: Comment [facility] Comment on above: Result Comment: The Pap smear is a screening test designed to aid in the detection of premalignant and malignant conditions of the uterine cervix. It is not a diagnostic procedure and should not be used as the sole means of detecting cervical cancer. Both false-positive and false-negative reports do occur. . Performed By: #### [id number] #### [facility] [address] [place] [address] Dr. Sol Friend Performed by: Comment Normal [facility] Comment on above: Result Comment: Aniket Covington, Program Control Analyst (ASCP) Performed By: #### [id number] #### [facility] [address] [place] [address] Dr. Sol Friend Specimen adequacy: Comment Normal [facility] Comment on above: Result Comment: Sati sfactory for evaluation. Endocervical component may not be distinguished in cases of atrophy. Areas of partially obscuring inflammatory exudate are present. Performed By: #### [id number] #### [facility] [address] [place] [address] Dr. Sol Friend XR KUB 1 VIEWon [...] by: NICOLE BONE Date: 2022-07-31 12:15 Normal [facility] US KIDNEYSon 07-22-2022 US KIDNEYS [...] DOMINICK SONI Date: 2022-07-22 09:20 Normal [facility] US BLADDERon 06-12-2022 US BLADDER EXAM: [...] NOLAN JAY Date: 2022-06-12 14:44 Normal [facility] CULTURE URINEon 06-05-2022 CULTURE URINE Culture Observations : NO GROWTH. Normal [facility] Comment on above: Performed By: #### U RCX ####[facility] [address] [place], [place] [address]Qt. Sol Friend UA (CLEAN/CATCH) MICROSCOPIC IF INDICATEon 01-19-2023 Bilirubin Ql (U) Negative Normal NEGATIVE [facility] Comment on above: Performed By: #### DAVID PULLIAMICRO ####[facility] [id number] [address]Dr[address] Sol Friend Clarity (U) CLEAR Normal CLEAR [facility] Comment on above: Performed By: #### Delia HINTON UMICRO ####[facility] [address] [place] [address]Dr[address] Sol Friend Color (U) LT. YELLOW Normal YELLOW [facility] Comment on above: Performed By: #### DAVID PULLIAMICRO ####[facility] [id number] [address]Dr[address] Sol Friend Glucose Ql (U) Negative Normal NEGATIVE [facility] Comment on above: Performed By: #### DAVID PULLIAMICRO ####[facility] [address] [place], [place] [address]Dr. Sol Friend Hemoglobin Ql (U) LARGE Abnormal NEGATIVE [facility] Comment on above: Performed By: #### DAVID PULLIAMICRO ####[facility] [address] [place], [place] [address]Dr. Sol Friend Ketones Ql (U) Negative Normal NEGATIVE [facility] Comment on above: Performed By: #### DAVID PULLIAMICRO ####[facility] [address]ir[address]lh[address] [place] [address]Dr. Sol Friend LEUKOCYTES Negative Normal NEGATIVE [facility] Comment on above: Performed By: #### DAVID PULLIAMICRO ####[facility] Snxtbbxrrn[address] [place] [address]Dr. Sol Friend Nitrite Ql (U) Negative Normal NEGATIVE [facility] Comment on above: Performed By: #### DAVID PULLIAMICRO ####[facility] Adtyivctcz[address] [place] [address]Dr. Sol Friend pH (U) 7.0 [pH] Normal 5-9 [facility] Comment on above: Performed By: #### RADHA PULLIAMRO ####[facility] Cgdtjletmc[address] [place] [address]Dr. Sol Friend SPEC GRAVITY <=1.005 Abnormal 1.005-<=1.025 [facility] Comment on above: Performed By: #### MILAN PULLIAM ####[facility] Zilvrwwief[address] [place] [address]Dr. Sol Friend UA PROTEIN Negative Normal NEGATIVE/ TRACE [facility] Comment on above: Performed By: #### MILAN PULLIAM ####[facility] Mapvsuiqvj[address] [place] [address]Dr. Sol Friend UR MICRO IND INDICATED Normal [facility] Comment on above: Performed By: #### MILAN PULLIAM ####[facility] Jnilqdpgsn[address] [place] [address]Dr. Sol Friend Urobilinogen Qn (U) 0.2 {Darrick'U}/dL Normal 0.2 - 1. 0 [facility] Comment on above: Performed By: #### MILAN PULLIAM ####[facility] Livihcskdy[address] [place] [address]Dr. Sol Friend URINE MICROSCOPIC ONLYon BACTERIA NONE SEEN Normal NONE SEEN [facility] Comment on above: Performed By: #### MILAN PULLIAM ####[facility] Ufseivxbcn[address] [place] [address]Dr. Sol Friend Bacteria identified Cx Nom (U) CX ALREADY ORDERED Normal [facility] Comment on above: Performed By: #### MILAN PULLIAM ####[facility] Hygeinuunt[address] [place] [address]Dr. Sol Friend CAST NONE SEEN Normal NONE SEEN [facility] Comment on above: Performed By: #### MILAN PULLIAM ####[facility] Jaoxqhtzzp[address] [place] [address]Dr. Sol Friend Crystals LM Nom (Urine sed) NONE SEEN Normal NONE SEEN [facility] Comment on above: Performed By: #### MILAN PULLIAM ####[facility] Nconifktfn[address] [place], [place] [address]Xl. Shakialjackie Friend Epithelial cells LM Ql (Urine sed) RARE Normal NONE SEEN /RARE [facility] Comment on above: Performed By: #### MILAN PULLIAM ####[facility] Bntyssjsnf[address] [place], [place] [address]Tr. Sol Phuc MUCOUS NONE SEEN Normal NONE SEEN [facility] Comment on above: Performed By: #### MILAN PULLIAM ####[facility] Lsanyvnedw28[address] [place], [place] [address]Of. Sol Friend RBC 2-5 Abnormal 0-2 [facility] Comment on above: Performed By: #### MILAN PULLIAM ####[facility] Tvcb[address]zusv[address] [place] [id number]. Sol Friend WBC NONE SEEN Normal NONE SEEN [facility] Comment on above: Performed By: #### MILAN PULLIAM ####[facility] Qtgpdygdfc37[address] [place] [phone]. Shakilajackie Friend CULTURE URINEon 05-22-2022 CULTURE URINE Isolate [...] Trimethoprim/Sulfameth oxazole <=20 S F Normal [facility] Comment on above: Performed By: #### U RCX ####[facility] Fkhqimmsdz[address] [place] [id number]. Sol Friend UA RANDOMon 05-20-2022 Bilirubin Ql (U) Negative Normal NEGATIVE [facility] Comment on above: Performed By: #### U A #### [facility] [address] [place] [address] Dr. Sol Friend Clarity (U) CLEAR Normal CLEAR [facility] Comment on above: Performed By: #### U A #### [facility] [address] [place] [address] Dr. Sol Friend Color (U) LT. YELLOW Normal YELLOW [facility] Comment on above: Performed By: #### U A #### [facility] [address] [place] [address] Dr. Sol Friend Glucose Ql (U) Negative Normal NEGATIVE [facility] Comment on above: Performed By: #### U A #### [facility] [address] [place] [address] Dr. Sol Friend Hemoglobin Ql (U) Negative Normal NEGATIVE [facility] Comment on above: Performed By: #### U A #### [facility] [address] [place] [address] Dr. Sol Friend Ketones Ql (U) Negative Normal NEGATIVE [facility] Comment on above: Performed By: #### U A #### [facility] [address] [place] [address] Dr. Sol Friend LEUKOCYTES Negative Normal NEGATIVE [facility] Comment on above: Performed By: #### U A #### [facility] [address] [place] [address] Dr. Sol Friend Nitrite Ql (U) Positive Abnormal NEGATIVE [facility] Comment on above: Performed By: #### U A #### [facility] [address] [place] [address] Dr. Sol Friend pH (U) 6.5 [pH] Normal 5-9 [facility] Comment on above: Performed By: #### U A #### [facility] [address] [place] [address] Dr. Sol Friend SPEC GRAVITY <=1.005 Abnormal 1.005-<=1.025 [facility] Comment on above: Performed By: #### U A #### [facility] [address] [place] [address] Dr. Sol Friend UA PROTEIN Negative Normal NEGATIVE/ TRACE [facility] Comment on above: Performed By: #### U A #### [facility] [address] [place], [place] [address] Dr. Sol Friend Urobilinogen Qn (U) 0.2 {Darrick'U}/dL Normal 0.2 - 1. 0 [facility] Comment on above: Performed By: #### U A #### [facility] [address] [place], [place] [address] Dr. Sol Friend MG MAMM SCREEN 3D CALOS CADon 05-16-2022 MG MAMM SCREEN 3D CALOS CAD Patient: GIA RUIZ Exam Date: 05/16/2022 : 1950 Gender:F Ordering : DR ROBRET FERREIRA . Admission #: [id number] Family : Order #: [id number] CLICK HERE TO VIEW EXAM RADIOLOGY REPORT [...] prostate cancer at age 71. LOCATION: [facility] BREAST COMPOSITION: Almost entirely fatty. FINDINGS: [...] MD on 05/16/2022 at 11:44 Normal [facility] Automated erythrocytes count in urine sediment (number/area)Ordered By: Adriana Cárdenas on 05-05-2022 RBC Auto (Urine sed) [#/Area] 0-1 [HPF] 0-4 [facility] Automated leukocytes count i n urine sediment (number/area)Ordered By: Adriana Cárdenas on 05-05-2022 WBC Auto (Urine sed) [#/Area] Innumerable [HPF] 0-4 [facility] Basophils Auto (Bld) [#/Vol] Ordered By: Adriana Cárdenas on 05-05-2022 Basophils (Bld) [#/Vol] 0.1 10*3/uL 0.0-0.2 [facility] Basophils/100 WBC Auto (Bld) Ordered By: Adriana Cárdenas on 05-05-2022 Basophils/100 WBC (Bld) 1.1 % . [facility] Bilirubin Test strip Ql (U)O rdered By: Adriana Cárdenas on 05-05-2022 Bilirubin Ql (U) Negative Negative [facility] Color Auto (U)Ordered By: Darien Cárdenas on 05-05-2022 Color (U) Yellow Yellow [facility] Creatinine and Glomerular fi ltration rate.predicted panel (S/P/Bld)Ordered By: Adriana Cárdenas on 05-05-2022 Creatinine [Mass/Vol] 0.71 mg/dL 0.44-1.03 [facility] Eosinophils Auto (Bld) [#/Vo l]Ordered By: Adriana Cárdenas on 05-05-2022 Eosinophils (Bld) [#/Vol] 0.2 10*3/uL 0.0-0.45 [facility] Eosinophils/100 WBC Auto (Bl d)Ordered By: Adriana Cárdenas on 05-05-2022 Eosinophils/100 WBC (Bld) 3.1 % . [facility] Erythrocyte distribution wid th Auto (RBC) [Ratio]Ordered By: Adriana Cárdenas on 05-05-2022 Erythrocyte distribution width (RBC) [Ratio] 13.8 % 11.9-15.3 [facility] Estimated glomerular filtrat ion rate (GFR) non- AmericanOrdered By: Adriana Cárdenas on 05-05-2022 GFR/1.73 sq M.predicted among non-blacks MDRD (S/P/Bld) [Vol rate/Area] > 60 mL/Min [facility] Glucose mean value [Mass/vol ume] in Blood Estimated from glycated hemoglobinOrdered By: Adriana Cárdenas on 05-05-2022 Average glucose Estimated from glycated hemoglobin (Bld) [Mass/Vol] 120 mg/dL [facility] Hematocrit Auto (Bld) [Volum e fraction]Ordered By: Adriana Cárdenas on 05-05-2022 Hematocrit (Bld) [Volume fraction] 37.1 % 34.0-46.4 [facility] Hemoglobin A1c percentageOrd ered By: Adriana Cárdenas on 05-05-2022 HbA1c (Bld) [Mass fraction] 5.8 % 4.3-5.6 [facility] Comment on above: Increased risk for d iabetes: 5.7 - 6.4diabetes: >6.4glycemic control for adults with diabetes: <7.0 Hemoglobin [Mass/volume] in BloodOrdered By: Adriana Cárdenas on 05-05-2022 Hemoglobin (Bld) [Mass/Vol] 12.3 g/dL 11.8-15.4 [facility] Ketones Auto test strip (U) [Mass/Vol]Ordered By: Adriana Cárdenas on 05-05-2022 Ketones (U) [Mass/Vol] Negative Negative [facility] Laboratory - UrinalysisOrder ed By: Adriana Cárdenas on 05-05-2022 Hyaline casts LM Ql (Urine sed) 0-8 [LPF] 0-8 [facility] Leukocytes [#/volume] correc lisa for nucleated erythrocytes in Blood by Automated counOrdered By: Adriana Cárdenas on 05-05-2022 WBC corrected for nucl RBC Auto (Bld) [#/Vol] 7.8 10*3/uL 3.8-11.6 [facility] Lymphocytes Auto (Bld) [#/Vo l]Ordered By: Adriana Cárdenas on 05-05-2022 Lymphocytes (Bld) [#/Vol] 2.7 10*3/uL 1.00-4.8 [facility] Lymphocytes/100 WBC Auto (Bl d)Ordered By: Adriana Cárdenas on 05-05-2022 Lymphocytes/100 WBC (Bld) 34.2 % . [facility] MCH Auto (RBC) [Entitic mass ]Ordered By: Adriana Cárdenas on 05-05-2022 MCH (RBC) [Entitic mass] 28.8 pg 24.7-34.3 [facility] MCHC Auto (RBC) [Mass/Vol]Or dered By: Adriana Cárdenas on 05-05-2022 MCHC (RBC) [Mass/Vol] 33.2 g/dL 32.0-35.0 [facility] MCV Auto (RBC) [Entitic vol] Ordered By: Adriana Cárdenas on 05-05-2022 MCV (RBC) [Entitic vol] 86.5 fL 80-100 [facility] Monocytes Auto (Bld) [#/Vol] Ordered By: Adriana Cárdenas on 05-05-2022 Monocytes (Bld) [#/Vol] 0.8 10*3/uL 0.0-0.8 [facility] Monocytes/100 WBC Auto (Bld) Ordered By: Adriana Cárdenas on 05-05-2022 Monocytes/100 WBC (Bld) 9.9 % . [facility] Neutrophils Auto (Bld) [#/Vo l]Ordered By: Adriana Cárdenas on 05-05-2022 Neutrophils (Bld) [#/Vol] 4.0 10*3/uL 1.8-7.7 [facility] Neutrophils/100 WBC Auto (Bl d)Ordered By: Adriana Cárdenas on 05-05-2022 Neutrophils/100 WBC (Bld) 51.7 % . [facility] Nitrite Test strip Ql (U)Ord ered By: Adriana áCrdenas on 05-05-2022 Nitrite Ql (U) Positive Negative [facility] No Panel InformationOrdered By: Adriana Cárdenas on 05-05-2022 Estimated GFR () > 60 mL/Min [facility] Comment on above: GFR estimated refere nce range: According to KDOQI guidelines, <60 ml/min/1.73m2 is sufficient to diagnose a patient with chronic kidney disease. Pharmacy Creatinine Clearance (Chem N/A [facility] Nucleated erythrocytes [Pres ence] in Blood by Automated countOrdered By: Adriana Cárdenas on 05-05-2022 Nucleated RBC Auto Ql (Bld) 0.1 /100{WBC} 0-0.5 [facility] Platelet mean volume Auto (B ld) [Entitic vol]Ordered By: Adriana Cárdenas on 05-05-2022 Platelet mean volume (Bld) [Entitic vol] 6.7 fL 6.3-10.7 [facility] Platelets Auto (Bld) [#/Vol] Ordered By: Adriana Cárdenas on 05-05-2022 Platelets (Bld) [#/Vol] 308 10*3/uL 150-450 [facility] Protein Auto test strip (U) [Mass/Vol]Ordered By: Adriana Cárdenas on 05-05-2022 Protein (U) [Mass/Vol] Negative Negative [facility] RBC Auto (Bld) [#/Vol]Ordere d By: Adriana Cárdenas on 05-05-2022 RBC (Bld) [#/Vol] 4.29 10*6/uL 3.60-5.00 [facility] Serum or plasma anion gap de terminationOrdered By: Adriana Cárdenas on 05-05-2022 Anion gap [Moles/Vol] 11.9 mmol/L 6.0-15.0 [facility] Serum or plasma calcium loretta urement (mass/volume)Ordered By: Adriana Cárdenas on 05-05-2022 Calcium [Mass/Vol] 9.1 mg/dL 8.2-10.2 [facility] Serum or plasma chloride roseanne surement (moles/volume)Ordered By: Adriana Cárdenas on 05-05-2022 Chloride [Moles/Vol] 100 mmol/L 95-[address] [facility] Serum or plasma glucose loretta urement (mass/volume)Ordered By: Adriana Cárdenas on 05-05-2022 Glucose [Mass/Vol] 88 mg/dL 70-100 [facility] Comment on above: ADA recommended refe rence rangeRandom Glucose Reference Range is dependent on time and content of last meal. Glucose of more than 200 mg/dL in a nonstressed, ambulatory subject supports the diagnosis of Diabetes Mellitus. Serum or plasma potassium me asurement (moles/volume)Ordered By: Adriana Cárdenas on 05-05-2022 Potassium [Moles/Vol] 3.9 mmol/L 3.5-5.1 [facility] Serum or plasma sodium measu rement (moles/volume)Ordered By: Adriana Cárdenas on 05-05-2022 Sodium [Moles/Vol] 132 mmol/L 136-146 [facility] Serum or plasma total carbon dioxide measurement (moles/volume)Ordered By: Adriana Cárdenas on 05-05-2022 CO2 [Moles/Vol] 24.0 mmol/L 22.0-30.0 [facility] Serum or plasma urea nitroge n measurement (mass/volume)Ordered By: Adriana Cárdenas on 05-05-2022 Urea nitrogen [Mass/Vol] 18 mg/dL 9-23 [facility] Specific gravity Auto test s trip (U) [Rel density]Ordered By: Adriana Cárdenas on 05-05-2022 Specific gravity (U) [Rel density] 1.008 1.001-1.030 [facility] Squamous epithelial cells de tection in urine sediment by light microscopyOrdered By: Adriana Cárdenas on 05-05-2022 Epithelial cells.squamous LM Ql (Urine sed) None seen [HPF] 0-2 [facility] Urine bacteria detection by automated methodOrdered By: Adriana Cárdenas on 05-05-2022 Bacteria Auto Ql (U) None seen None Seen [facility] Urine clarity by refractomet ry automatedOrdered By: Adriana Cárdenas on 05-05-2022 Clarity Refractometry automated (U) Cloudy Clear [facility] Urine glucose measurement by automated test strip (mass/volume)Ordered By: Adriana Cárdenas on 05-05-2022 Glucose Auto test strip (U) [Mass/Vol] Normal mg/dL Normal [facility] Urine hemoglobin detection b y automated test stripOrdered By: Adriana Cárdenas on 05-05-2022 Hemoglobin Auto test strip Ql (U) Negative Negative [facility] Urine leukocyte esterase det ection by automated test stripOrdered By: Adriana Crádenas on 05-05-2022 Leukocyte esterase Auto test strip Ql (U) 4+ Negative [facility] Urobilinogen Auto test strip (U) [Mass/Vol]Ordered By: Adriana Cárdenas on 05-05-2022 Urobilinogen (U) [Mass/Vol] Normal mg/dL Normal [facility] WBC Auto (Bld) [#/Vol]Ordere d By: Adriana Cárdenas on 05-05-2022 WBC (Bld) [#/Vol] 7.8 10*3/uL 3.8-11.6 [facility] pH Auto test strip (U)Ordere d By: Adriana Cárdenas on 05-05-2022 pH (U) 6.5 [pH] 5.0-9.0 [facility] ALBUMINon 01-10-2022 Albumin [Mass/Vol] 3.4 g/dL Normal 3.4-5.0 [facility] Comment on above: Performed By: #### A LB, BMP #### [facility] [address] [place] [address] [address] Sol Friend CBC AUTO DIFFon 01-10-2022 BASO # 0.1 103/ul Normal 0.0-0.1 [facility] Comment on above: Performed By: #### C BC ####[facility] Guidqvpsew[address] [place] [address]DrCarmen Friend Basophils/100 WBC (Bld) 1.0 % Normal 0.2-2.0 [facility] Comment on above: Performed By: #### C BC ####[facility] Dbwsvcjpmx9[address] [place] [address]DrCarmen Friend EO # 0.3 103/ul Normal 0.0-0.7 [facility] Comment on above: Performed By: #### C BC ####[facility] Wtwsjjxcyw[address] [place] [phone]. Sol Friend Eosinophils/100 WBC (Bld) 3.9 % Normal 0.9-7.0 [facility] Comment on above: Performed By: #### C BC ####[facility] Xghfkikkcl60[address] [place] [phone] Friend Erythrocyte distribution width (RBC) [Ratio] 13.1 % Normal 11.0-15.0 [facility] Comment on above: Performed By: #### C BC ####[facility] [address]qkv[address] [place] [address]DrCarmen Friend Hematocrit (Bld) [Volume fraction] 38.6 % Normal 36.0-48.0 [facility] Comment on above: Performed By: #### C BC ####[facility] [address]pro[address] [place] [phone]. Sol Friend Hemoglobin (Bld) [Mass/Vol] 12.7 g/dL Normal 12.0-16.0 [facility] Comment on above: Performed By: #### C BC ####[facility] Hjxeujh[address] [place] [phone]. Sol Friend IG # 0.02 10e3/ul Normal 0.00-0.03 [facility] Comment on above: Performed By: #### C BC ####[facility] Qdjvfxmhpo[address] [place] [address]Dr. Sol Friend IG % 0.3 % Normal 0.0-0.5 [facility] Comment on above: Performed By: #### C BC ####[facility] Uvkgkaxfvj[address] [place] [address]Dr. Sol Friend LYMPH # 2.7 103/ul Normal 1.2-3.8 [facility] Comment on above: Performed By: #### C BC ####[facility] Ododxyscrd[address] [place] [address]Dr. Sol Friend Lymphocytes/100 WBC (Bld) 34.1 % Normal 20.5-60.0 [facility] Comment on above: Performed By: #### C BC ####[facility] [address]alf[address] [place] [address]Dr. Sol Friend MANUAL DIFF REQ NO Normal [facility] Comment on above: Performed By: #### C BC ####[facility] [address] [place], [place] [address]Dr. Sol Friend MCH (RBC) [Entitic mass] 29.5 pg Normal 26.7-34.0 [facility] Comment on above: Performed By: #### C BC ####[facility] W[address] [place], [place] [address]Dr. Sol Friend MCHC (RBC) [Mass/Vol] 32.9 g/dL Normal 29.9-35.2 [facility] Comment on above: Performed By: #### C BC ####[facility] Sihycsynza[address] [place] [id number]. Sol Friend MCV (RBC) [Entitic vol] 89.6 fL Normal 81.0-99.0 [facility] Comment on above: Performed By: #### C BC ####[facility] Xlikrqlwuu[address] [place] [phone]. Sol Friend MONO # 0.8 103/ul Normal 0.3-0.8 [facility] Comment on above: Performed By: #### C BC ####[facility] Qgkuzxrizl[address] [place] [phone]. Sol Friend Monocytes/100 WBC (Bld) 10.3 % Normal 1.7-12.0 [facility] Comment on above: Performed By: #### C BC ####[facility] Kdksezvydd[address] [place] [phone]. Sol Friend NEUT # 4.0 103/ul Normal 1.4-6.5 [facility] Comment on above: Performed By: #### C BC ####[facility] [address] [place], [place] [address]Dr. Sol Friend Neutrophils/100 WBC (Bld) 50.4 % Normal 43.0-75.0 [facility] Comment on above: Performed By: #### C BC ####[facility] Wcupmuoztw55[address] [place] [phone]. Sol Friend Platelet mean volume (Bld) [Entitic vol] 8.7 fL Critically low 9.5-13.5 [facility] Comment on above: Performed By: #### C BC ####[facility] Ljffdxemgn[address] [place] [phone]. Sol Friend PLT 285 103/ul Normal 150-450 [facility] Comment on above: Performed By: #### C BC ####[facility] Tyfoxshdhd35[address] [place] [phone]. Sol Friend RBC 4.31 106/ul Normal 4.20-5.40 [facility] Comment on above: Performed By: #### C BC ####[facility] Elrgyknaxi[address] [place] [phone]. Sol Friend WBC 7.9 103/ul Normal 4.0-11.0 [facility] Comment on above: Performed By: #### C BC ####[facility] Qbcewbvewt[address] [place] [phone] Friend MRSA NARES #1on 01-10-2022 MRSA NARES #1 Culture Observations : NO GROWTH OF MRSA AT 48 HOURS Normal [facility] Comment on above: Performed By: #### M RSAN1 ####[facility] [address] [place] [phone]. Sol Friend PROF CHEM 8 (BAS METB)on Anion gap [Moles/Vol] 12.9 mmol/L Normal [facility] Comment on above: Performed By: #### A LB, BMP #### [facility] [address] [place] [address] [address] Sol Friend Calcium [Mass/Vol] 8.8 mg/dL Normal 8.5-10.1 [facility] Comment on above: Performed By: #### A LB, BMP #### [facility] [address] [place] [address] [address] Sol Friend Chloride [Moles/Vol] 93 mmol/L Critically low 98-107 [facility] Comment on above: Performed By: #### A LB, BMP #### [facility] [address] [place] [address] [address] Sol Friend CO2 [Moles/Vol] 26.6 mmol/L Normal 21.0-32.0 [facility] Comment on above: Performed By: #### A LB, BMP #### [facility] [address] [place] [address] [address] Sol Friend Creatinine [Mass/Vol] 0.75 mg/dL Normal 0.55-1.02 [facility] Comment on above: Performed By: #### A LB, BMP #### [facility] [address] [place] [address] [address] Sol Friend EGFR-AF BARBADIAN >60 Normal >=60 [facility] Comment on above: Performed By: #### A LB, BMP #### [facility] [address] [place] [address] Dr. Sol Friend EGFR-NON AF BARBADIAN >60 Normal >=60 [facility] Comment on above: Performed By: #### A LB, BMP #### [facility] [address] [place] [address] [address] Sol Friend Glucose [Mass/Vol] 87 mg/dL Normal 74-106 [facility] Comment on above: Performed By: #### A LB, BMP #### [facility] [facility] [address] [address] [address] Sol Friend Potassium [Moles/Vol] 3.5 mmol/L Normal 3.5-5.1 [facility] Comment on above: Performed By: #### A LB, BMP #### [facility] [address] [place] [address] Dr. Sol Friend Sodium [Moles/Vol] 129 mmol/L Critically low 136-145 [facility] Comment on above: Performed By: #### A LB, BMP #### [facility] [address] [place] [address] Dr. Sol Friend Urea nitrogen [Mass/Vol] 17.0 mg/dL Normal 7.0-18.0 [facility] Comment on above: Performed By: #### A LB, BMP #### [facility] [address] [place] [address] Dr. Sol Friend Urea nitrogen/Creatinine [Mass ratio] 22.7 mg/mg Normal [facility] Comment on above: Performed By: #### A LB, BMP #### [facility] [address] [place] [address] Dr. Sol Friend FREE T3on 10-03-2021 FREE T3 3.95 pg/mlL Normal 2.18-3.98 [facility] Comment on above: Performed By: #### T SH, FT3 #### [facility] [address] [place] [address] Dr. Sol Friend TSHon 10-03-2021 TSH 1.122 uIU/mL Normal 0.358-3.740 [facility] Comment on above: Performed By: #### T SH, FT3 #### [facility] [address] [place], [place] [address] Dr. Sol Friend TSH RANGE SEE BELOW Normal [facility] Comment on above: Result Comment: <0.3 4 UIU/ml HYPERTHYROID 0.34-5.60 UIU/ml EUTHYROID >5.60 UIU/ml HYPOTHYROID Performed By: #### T SH, FT3 #### [facility] [address] [address] [address] Sol Friend Vital Signs Date Time Vital Sign Value Performing Clinician Facility 02-07-2025 14:01-0400 Diastolic blood pressure 77 mm[Hg] Bambi Nam C4 PLANNER-C Work Phone: [facility] 02-07-2025 14:01-0400 Heart rate 65 /min Bambi Nam C4 PLANNER-C Work Phone: [facility] 02-07-2025 14:01-0400 Systolic blood pressure 146 mm[Hg] Bambi Nam C4 PLANNER-C Work Phone: [facility] 10-12-2024 15:40-0400 Body height 157.5 cm Lory Busch PA Work Phone: [facility] 10-12-2024 15:40-0400 Body mass index (BMI) [Ratio] 35.3 kg/m2 Lory Busch PA Work Phone: [facility] 10-12-2024 15:40-0400 Body weight 87.54 kg Lory Busch PA Work Phone: [facility] 10-12-2024 15:40-0400 Diastolic blood pressure 82 mm[Hg] Lory Busch PA Work Phone: [facility] 10-12-2024 15:40-0400 Heart rate 74 /min Lory Busch PA Work Phone: [facility] 10-12-2024 15:40-0400 Respiratory rate 16 /min Lory Busch PA Work Phone: [facility] 10-12-2024 15:40-0400 SaO2% (BldA) [Mass fraction] 98 % Lory ISAAC Work Phone: [facility] 10-12-2024 15:40-0400 Systolic blood pressure 124 mm[Hg] Lory ISAAC Work Phone: [facility] 08-22-2024 13:26-0400 Body mass index (BMI) [Ratio] 35.03 kg/m2 Robert Jhon DO Work Phone: [facility] 08-22-2024 13:26-0400 Body weight 86.86 kg Robert Jhon DO Work Phone: [facility] 08-22-2024 13:26-0400 Diastolic blood pressure 76 mm[Hg] Robert Jhon DO Work Phone: [facility] 08-22-2024 13:26-0400 Systolic blood pressure 132 mm[Hg] Robert Jhon DO Work Phone: [facility] 08-15-2024 10:58-0400 Body height 154.94 cm [facility] 08-15-2024 10:58-0400 Body mass index (BMI) [Ratio] 35.3 kg/m2 [facility] 08-15-2024 10:58-0400 Body weight 84.82 kg [facility] 08-15-2024 10:58-0400 Diastolic blood pressure 76 mm[Hg] [facility] 08-15-2024 10:58-0400 Heart rate 75 /min [facility] 08-15-2024 10:58-0400 Systolic blood pressure 122 mm[Hg] [facility] 07-20-2024 13:31-0500 Body height 157.5 cm Kevin Latoniajusticek DO Work Phone: [facility] 07-20-2024 13:31-0500 Body mass index (BMI) [Ratio] 33.84 kg/m2 Kevin Murcek DO Work Phone: [facility] 07-20-2024 13:31-0500 Body weight 83.92 kg Kevin Murcek DO Work Phone: [facility] 06-21-2024 09:29-0500 Body height 157.5 cm Kevin Lincolncek DO Work Phone: [facility] 06-21-2024 09:29-0500 Body mass index (BMI) [Ratio] 33.84 kg/m2 Kevin Lincolncek DO Work Phone: [facility] 06-21-2024 09:29-0500 Body weight 83.92 kg Kevin Lincolncek DO Work Phone: [facility] 06-13-2024 12:39-0500 Body height 157.5 cm Kevin Lincolncek DO Work Phone: [facility] 06-13-2024 12:39-0500 Body mass index (BMI) [Ratio] 33.84 kg/m2 Kevin Lincolncek DO Work Phone: [facility] 06-13-2024 12:39-0500 Body weight 83.92 kg Kevin Lincolncek DO Work Phone: [facility] 06-09-2024 14:32-0500 Diastolic blood pressure 80 mm[Hg] Aamir James MD Work Phone: [facility] 06-09-2024 14:32-0500 Systolic blood pressure 130 mm[Hg] Aamir James MD Work Phone: [facility] 06-07-2024 11:20-0500 Body height 157.5 cm Flores Lowe PA Work Phone: [facility] 06-07-2024 11:20-0500 Body mass index (BMI) [Ratio] 34.93 kg/m2 Flores Lowe PA Work Phone: [facility] 06-07-2024 11:20-0500 Body weight 86.64 kg Flores Lowe PA Work Phone: [facility] 06-07-2024 11:20-0500 Diastolic blood pressure 82 mm[Hg] Flores Lowe PA Work Phone: [facility] 06-07-2024 11:20-0500 Heart rate 71 /min Flores Lowe PA Work Phone: [facility] 06-07-2024 11:20-0500 Respiratory rate 16 /min Flores Lowe PA Work Phone: [facility] 06-07-2024 11:20-0500 SaO2% (BldA) [Mass fraction] 98 % Flores Lowe PA Work Phone: [facility] 06-07-2024 11:20-0500 Systolic blood pressure 124 mm[Hg] Flores Lowe PA Work Phone: [facility] 02-18-2024 12:45-0400 Blood Pressure Location MICAH NAS [facility] 02-18-2024 12:45-0400 Body temperature 98.6 [degF] MICAH NAS [facility] 02-18-2024 12:45-0400 Diastolic blood pressure 85 mm[Hg] MICAH NAS [facility] 02-18-2024 12:45-0400 Heart rate 68 /min MICAH NAS [facility] 02-18-2024 12:45-0400 Respiratory rate 16 /min MICAH NAS [facility] 02-18-2024 12:45-0400 Systolic blood pressure 135 mm[Hg] MICAH NAS [facility] 08-17-2023 11:21-0400 Blood Pressure Location Bertha BLAND [facility] 08-17-2023 11:21-0400 Body temperature 98.42 [degF] Bertha BLAND [facility] 08-17-2023 11:21-0400 Diastolic blood pressure 87 mm[Hg] Bertha BLAND [facility] 08-17-2023 11:21-0400 Heart rate 78 /min Berthaeleazar BLAND [facility] 08-17-2023 11:21-0400 Respiratory rate 16 /min Bertha BLAND [facility] 08-17-2023 11:21-0400 Systolic blood pressure 131 mm[Hg] Bertha BLAND [facility] 08-13-2023 14:44-0400 Body height 154.94 cm [facility] 08-13-2023 14:44-0400 Body mass index (BMI) [Ratio] 40 kg/m2 [facility] 08-13-2023 14:44-0400 Body weight 96.16 kg [facility] 08-13-2023 14:44-0400 Diastolic blood pressure 89 mm[Hg] [facility] 08-13-2023 14:44-0400 Heart rate 67 /min [facility] 08-13-2023 14:44-0400 Systolic blood pressure 162 mm[Hg] [facility] 03-31-2023 13:47-0500 Diastolic blood pressure 88 mm[Hg] C4 PLANNER-C Bambi Nam Work Phone: [facility] 03-31-2023 13:47-0500 Heart rate 82 /min C4 PLANNER-C Bambi Nam Work Phone: [facility] 03-31-2023 13:47-0500 Respiratory rate 16 /min C4 PLANNER-C Bambi Nam Work Phone: [facility] 03-31-2023 13:47-0500 SaO2% (BldA) [Mass fraction] 97 % C4 PLANNER-C Bambi Nam Work Phone: [facility] 03-31-2023 13:47-0500 Systolic blood pressure 140 mm[Hg] C4 PLANNER-C Bambi Nam Work Phone: [facility] 03-31-2023 12:01-0500 Body height 154.94 cm C4 PLANNER-C Bambi Nam Work Phone: [facility] 03-31-2023 12:01-0500 Body temperature 97.7 [degF] C4 PLANNER-C Bambi Nam Work Phone: [facility] 03-31-2023 12:01-0500 Body weight 92.07 kg C4 PLANNER-C Bambi Nam Work Phone: [facility] 03-12-2023 10:30-0400 Diastolic blood pressure 71 mm[Hg] C4 PLANNER-C Bambi Nam Work Phone: [facility] 03-12-2023 10:30-0400 Heart rate 80 /min C4 PLANNER-C Bambi Nam Work Phone: [facility] 03-12-2023 10:30-0400 Respiratory rate 16 /min C4 PLANNER-C Bambi Nam Work Phone: [facility] 03-12-2023 10:30-0400 SaO2% (BldA) [Mass fraction] 100 % C4 PLANNER-C Bambi Nam Work Phone: [facility] 03-12-2023 10:30-0400 Systolic blood pressure 136 mm[Hg] C4 PLANNER-C Bambi Nam Work Phone: [facility] 03-12-2023 08:37-0400 Body height 157.48 cm C4 PLANNER-C Bambi Nam Work Phone: [facility] 03-12-2023 08:37-0400 Body temperature 97.6 [degF] C4 PLANNER-C Bambi Nam Work Phone: [facility] 03-12-2023 08:37-0400 Body weight 92.07 kg GINA Browning Work Phone: [facility] 02-13-2023 09:30-0400 Blood Pressure Location Bertha BLAND [facility] 02-13-2023 09:30-0400 Body temperature 97.88 [degF] Bertha BLAND [facility] 02-13-2023 09:30-0400 Diastolic blood pressure 82 mm[Hg] Bertha BLAND [facility] 02-13-2023 09:30-0400 Heart rate 78 /min Bertha BLAND [facility] 02-13-2023 09:30-0400 Systolic blood pressure 124 mm[Hg] Bertha BLAND [facility] 07-24-2022 13:15-0500 Body height 157.48 cm Cesar Estrada Other [employer] [facility] [employer] Other 07-24-2022 13:15-0500 Body mass index (BMI) [Ratio] 37.31 kg/m2 Cesar Estrada Other [employer] Other 07-24-2022 13:15-0500 Body weight 92.53 kg Cesar Estrada Other [employer] Other 07-24-2022 13:15-0500 Diastolic blood pressure 76 mm[Hg] Cesar Estrada Other [employer] Other 03-09-2023 13:15-0500 Respiratory rate 20 /min Cesar Estrada Other [employer] Other 07-24-2022 13:15-0500 Systolic blood pressure 135 mm[Hg] Cesar Estrada Other [employer] Other 04-02-2021 14:00-0500 Body height 157.48 cm Dominick Hester Other [employer] Other 04-02-2021 14:00-0500 Body mass index (BMI) [Ratio] 33.47 kg/m2 Dominick Hester Other [employer] Other 04-02-2021 14:00-0500 Body weight 83.01 kg Dominick Hester Other [employer] Other Encounters Encounter Date Encounter Type Care Provider Facility Start: 05-16-2025 ambulatory [employer]IT [employer] MENDER Bambi Browning Facil ity:[facility] [place] Start: 02-24-2025 End: 02-24-2025 ambulatory Bertha BLAND Facility: [facility] Start: 02-24-2025 End: 02-24-2025 Patient encounter procedure Bertha BLAND [facility] Start: 02-07-2025 End: 02-07-2025 ambulatory Bambi Browning C4 PLANNER-C Work Phone: [facility] Work Phone: Start: 02-07-2025 End: 02-07-2025 Patient encounter procedure Flores Rodriguez [employer] [facility] [place] Work Phone: Start: 01-11-2025 End: 01-11-2025 Telephone encounter Jr. Adriana Cárdenas DO Work Phone: [facility] Comment on above: DENTAL APPT Start: 11-29-2024 End: 11-29-2024 Bamboo flowsheet Kateryna Chávez MD Work Phone: [facility] Start: 11-29-2024 End: 11-29-2024 Bamboo flowsheet Kateryna Chváez MD Work Phone: [facility] Start: 11-29-2024 End: 11-29-2024 Office outpatient visit 25 minutes Kateryna Chávez MD Work Phone: [facility] Comment on above: Melanocytic nevus of trunk (Primary Dx); Seborrheic keratosis; History of basal cell carcinoma; Androgenic alopecia Start: 11-29-2024 End: 11-29-2024 ambulatory KATERYNA CHÁVEZ Not Available Start: 10-27-2024 End: 10-27-2024 Bamboo flowsheet Rosalinda ISAAC Work Phone: [facility] Start: 10-27-2024 End: 10-27-2024 Bamboo flowsheet Rosalinda ISAAC Work Phone: [facility] Start: 10-27-2024 End: 10-27-2024 Office outpatient visit 15 minutes Rosalinda ISAAC Work Phone: [facility] Comment on above: S/P total [...] flowsheet Lory Busch PA Work Phone: [facility] Start: 10-12-2024 End: 10-12-2024 Bamboo flowsheet Lory Busch PA Work Phone: [facility] Start: 09-07-2024 End: 09-08-2024 External Result Encounter Rosalinda ISAAC Work Phone: [facility] Unsolicited Start: 09-07-2024 End: 09-08-2024 External Result Encounter Rosalinda ISAAC Work Phone: [facility] Unsolicited Start: 09-07-2024 End: 09-07-2024 Patient encounter procedure Mile Sanchez MD Work Phone: [facility] Work Phone: Start: 09-07-2024 End: 09-07-2024 ambulatory Mile Sanchez MD Work Phone: [facility] Work Phone: Start: 09-07-2024 Encounter for other preprocedural examination Rosalinda Bernstein [facility] Start: 08-29-2024 End: 08-29-2024 Clinisync Result Encounter Robert Jhon DO Work Phone: [facility] Unsolicited Start: 08-29-2024 End: 08-29-2024 Clinisync Result Encounter Robert Jhon DO Work Phone: [facility] Unsolicited Start: 08-29-2024 End: 08-29-2024 ambulatory [employer] M[employer] Bambi Browning Facility:[facility] Rissa gant Start: 08-22-2024 End: 08-22-2024 Bamboo flowsheet Robert Jhon DO Work Phone: [facility] Start: 08-22-2024 End: 08-26-2024 Bamboo flowsheet Robert Jhon DO Work Phone: [facility] Start: 08-22-2024 End: 08-26-2024 Clinisync Result Encounter Robert Stouto DO Work Phone: [facility] Unsolicited Start: 08-22-2024 End: 08-22-2024 ambulatory ROBERT STOUTO Not Available Start: 08-22-2024 End: 08-22-2024 Patient encounter procedure Robert Stouto DO Work Phone: [facility] Comment on above: Well woman exam with routine gynecological exam; Encounter for screening mammogram for malignant neoplasm of breast Start: 08-15-2024 End: 08-15-2024 ambulatory [facility] Work Phone: Start: 08-15-2024 End: 08-15-2024 Patient encounter procedure [facility] Work Phone: Start: 07-20-2024 End: 07-20-2024 [...] encounter Rosalinda Bernstein PA Work Phone: [facility] Comment on [...] encounter status Kevin Aguilar DO Work Phone: [facility] Start: 06-13-2024 End: 06-13-2024 ambulatory KEVIN AGUILAR Not Available Start: 06-12-2024 End: 06-12-2024 Preprocedural examination done Kevin Aguilar DO Work Phone: [facility] Start: 06-09-2024 End: 06-09-2024 Patient encounter procedure Aamir James MD Work Phone: [facility] Comment on above: 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) Start: 06-09-2024 End: 06-09-2024 ambulatory AAMIR JAMES Not Available Start: 06-07-2024 End: 06-07-2024 Bamboo flowsheet Flores Lowe PA Work Phone: [facility] Start: 06-07-2024 End: 06-07-2024 Bamboo flowsheet Flores Gaytan PA Work Phone: [facility] Start: 06-07-2024 End: 06-07-2024 Office outpatient visit 25 minutes Flores Gaytan PA Work Phone: [facility] Comment on above: Cerebrovascular acci dent (CVA), unspecified mechanism (CMS/HCC) (Primary Dx); Muscle spasm; Lumbosacral radiculopathy; Degeneration of intervertebral disc of lumbar region with discogenic back pain and lower extremity pain Start: 06-07-2024 End: 06-07-2024 ambulatory FLORES GAYTAN Not Available Start: 05-26-2024 End: 05-26-2024 Lab Drop off Bambi L Nam [facility] Start: 05-26-2024 End: 05-26-2024 ambulatory Bambi L Nam Facility:[facility] Start: 05-16-2024 End: 05-16-2024 ambulatory Bambi L Nam Facility:[facility] Alanson alfreda Start: 04-12-2024 End: 04-12-2024 Bamboo flowssumeet Chávez [...] and skin Start: 03-15-2024 End: 03-15-2024 ambulatory [employer]IT [employer] M[employer] Bambi L Nam Facility:[facility] Alanson alfreda Start: 02-18-2024 End: 02-18-2024 ambulatory MICAH Clarence NAS Facility:[facility] Start: 02-18-2024 End: 02-18-2024 Patient encounter procedure MICAHDAYDAY MOROCHORY [facility] Start: 01-21-2024 End: 01-21-2024 Lab Drop off Bambi L Nam [facility] Start: 01-21-2024 End: 01-21-2024 ambulatory Bambi L Nam Facility:[facility] Start: 12-28-2023 End: 12-28-2023 ambulatory ROSALINDA BERNSTEIN Not Available Start: 12-24-2023 End: 12-24-2023 ambulatory SAGE BRINK Not Available Start: 12-22-2023 End: 12-22-2023 ambulatory FLORES GAYTAN Not Available Start: 12-17-2023 End: 12-17-2023 ambulatory SULEMA JHA Not Available Start: 12-14-2023 End: 12-14-2023 ambulatory SAGE BRINK Not Available Start: 12-10-2023 End: 12-10-2023 ambulatory SAGE BRINK Not Available Start: 12-08-2023 End: 12-08-2023 ambulatory SAGE BRINK Not Available Start: 10-05-2023 End: 10-05-2023 ambulatory Bambi L Nam Facility:[facility] Rissa gant Start: 10-01-2023 End: 10-01-2023 ambulatory C4 PLANNER-C Bambi Waddelln Nam Work Phone: [facility] Work Phone: Start: 10-01-2023 End: 10-01-2023 Patient encounter procedure C4 PLANNER-C Bambi Nam Work Phone: [facility] [address] Work Phone: Start: 09-30-2023 End: 09-30-2023 Patient encounter procedure C4 PLANNER-C Bambi Nam Work Phone: [facility] Work Phone: Start: 09-14-2023 End: 09-14-2023 ambulatory Bertha BLAND Facility:[facility] Start: 09-14-2023 End: 09-14-2023 Patient encounter procedure [facility] Start: 08-26-2023 End: 08-26-2023 ambulatory Bambi L Nam Facility:[facility] Rissa gant Start: 08-17-2023 End: 08-17-2023 ambulatory Bertha BLAND Facility:[facility] Start: 08-17-2023 End: 08-17-2023 Patient encounter procedure Bertha BLAND [facility] Start: 08-13-2023 End: 08-13-2023 ambulatory C4 PLANNER-C Bambi Browning Work Phone: [facility] Work Phone: Start: 08-13-2023 End: 08-13-2023 Patient encounter procedure [facility] Work Phone: Start: 05-13-2023 End: 05-13-2023 Lab Drop off Bambi L Nam [facility] Start: 04-16-2023 End: 04-16-2023 ambulatory Cesar Estrada Other [employer] Other Start: 04-16-2023 Telephone encounter Cesar ROD [facility] Start: 04-01-2023 End: 04-01-2023 ambulatory Cesar Estrada Other [employer] Other Start: 04-01-2023 Telephone encounter Cesar [facility]ano [facility] Start: 03-31-2023 End: 03-31-2023 Admission to same day surgery center C4 PLANNER-C Bambi Nma Work Phone: [facility] Work Phone: Start: 03-31-2023 End: 03-31-2023 ambulatory C4 PLANNER-C Bambi Vegas Nam Work Phone: [facility] Work Phone: Start: 03-16-2023 End: 03-16-2023 ambulatory Cesar Estrada Other [employer] Other Start: 03-16-2023 Telephone encounter Cesar Ruano [facility] Start: 03-12-2023 End: 03-12-2023 Admission to same day surgery center C4 PLANNER-C Bambi Nam Work Phone: [facility] Work Phone: Start: 03-12-2023 End: 03-12-2023 ambulatory C4 PLANNER-C Bambi Vegas Nam Work Phone: [facility] Work Phone: Start: 02-13-2023 End: 02-13-2023 Patient encounter procedure Bertha BLAND [facility] Start: 11-27-2022 End: 11-27-2022 ambulatory C4 PLANNER-C Bambi Vegas Nam Work Phone: [facility] Work Phone: Start: 11-27-2022 End: 11-27-2022 Patient encounter procedure C4 PLANNER-C Bambi Nam Work Phone: [facility] [address] Work Phone: Start: 11-24-2022 End: 11-24-2022 ambulatory C4 PLANNER-C Bambi Browning Work Phone: [facility] Work Phone: Start: 11-24-2022 End: 11-24-2022 Patient encounter procedure C4 PLANNER-C Bambi Browning Work Phone: [id number] Work Phone: Start: 10-17-2022 End: 10-17-2022 Lab Drop off MICAH GOTTLIEB [facility] Start: 10-17-2022 End: 10-17-2022 Patient encounter procedure Bertha BLAND [facility] [place] Start: 09-23-2022 End: 09-23-2022 Lab Drop off Bertha BLAND [facility] Start: 09-22-2022 End: 09-22-2022 Patient encounter procedure Bertha BLAND [facility] [place] Start: 08-19-2022 End: 08-20-[address] ESTEFANÍA SUTHERLAND . Facility:[facility] Start: 08-11-2022 End: 08-11-[address] ESTEFANÍA SUTHERLAND . Facility:[facility] Start: 07-31-2022 End: 08-01-[address] ESTEFANÍA SUTHERLAND . Facility:[facility] Start: 07-29-2022 End: 07-29-2022 Patient encounter procedure Bertha BLAND [facility] Start: 07-24-2022 End: 07-24-2022 ambulatory Cesar Estrada Other [employer] Other Start: 07-24-2022 Patient encounter procedure Cesar Estrada [facility] Start: 07-22-2022 End: 07-23-[address] BERTHA BLAND . Facility:[facility] Start: 07-14-2022 End: 07-14-2022 Lab Drop off Bertha BLAND [facility] Start: 06-12-2022 End: 06-13-[address] BERTHA BLAND . Facility:[facility] Start: 06-05-2022 End: 06-06-[address] ESTEFANÍA SUTHERLAND . Facility:[facility] Start: 05-19-2022 End: 05-20-2022 ambulatory MR ROSALINDA BERNSTEIN . Facility:[facility] Start: 05-16-2022 End: 05-17-[address] ROBERT FERREIRA . Facility:[facility] Start: 05-05-2022 End: 05-05-2022 ambulatory MD Estefanía Sutherland Work Phone: [facility] Work Phone: Start: 05-05-2022 End: 05-05-2022 Patient encounter procedure MD Estefanía Sutherland Work Phone: [facility] [address] Start: 05-05-2022 End: 05-05-2022 ambulatory MD Estefanía Sutherland Work Phone: [facility] Work Phone: Start: 05-05-2022 End: 05-05-2022 Patient encounter procedure MD Estefanía Sutherland Work Phone: [id number] Start: 01-29-2022 End: 01-29-[address] ESTEFANÍA SUTHERLAND . Facility:[facility] Start: 01-13-2022 Encounter for preprocedural cardiovascular examination DR ESTEFANÍA SUTHERLAND . [facility] Start: 01-13-2022 Encounter for preprocedural laboratory examination DR ESTEFANÍA SUTHERLAND . [facility] Start: 01-10-2022 End: 01-11-[address] ESTEFANÍA SUTHERLAND . Facility:[facility] Start: 01-10-2022 End: 01-11-2022 Encounter for preprocedural laboratory examination DR ESTEFANÍA SUTHERLAND . Facility:[facility] Start: 10-03-2021 End: 10-04-[address] ESTEFANÍA SUTHERLAND . Facility:[facility] Start: 09-17-2021 End: 09-17-2021 ambulatory Dominick Hester Other [employer] Other Start: 09-17-2021 Telephone encounter Dominick Carltonabril [facility] Start: 04-02-2021 End: 04-02-2021 ambulatory Dominick Hester Other [employer] [place] Other Start: 04-02-2021 Office outpatient vi sit 25 minutes Dominick Hester [facility] Procedures Date Procedure Procedure Detail Performing Clinician Start: 10-27-2024 Radiologic examination knee 1/2 views Rosalinda ISAAC Work Phone: Start: 10-27-2024 Radiologic examination knee 1/2 views Rosalinda ISAAC Work Phone: Start: 09-07-2024 Hemoglobin glycosylated a1c Rosalinda lewis PA Work Phone: Start: 08-29-2024 MM TOMOSYNTHESIS SCREENING BI Robert Fazi o DO Work Phone: Start: 08-29-2024 Mammography Robert Jhon DO Work Phone: Start: 08-22-2024 IGP,APTIMA HPV,AGE GDLN Robert Jhon DO Work Phone: Start: 06-08-2024 MOHS SURGERY Aamir James MD Work Phone: Start: 04-12-2024 SKIN / NAIL BIOPSY Kateryna Chávez MD Work Phone: Start: 10-01-2023 Plain X-ray of bilateral femurs C4 PLANNER-C Mayuri Browning Work Phone: Start: 10-01-2023 Plain X-ray of bilateral tibia and bilateral fibula C4 PLANNER-C Bambi Browning Work Phone: Start: 09-30-2023 Plain chest X-ray C4 PLANNER-C Bambi Browning Work Phone: Start: 08-28-2023 Mammography Kateryna Chávez MD Work Phone: Start: 03-31-2023 Esophagogastroduodenoscopy C4 PLANNER-C Bambi Castañeda wab Work Phone: Start: 03-12-2023 Colonoscopy C4 PLANNER-C Bambi Nam Work Phone: Start: 11-27-2022 Plain X-ray of bilateral femurs C4 PLANNER-C Makaylaignacio christina Nam Work Phone: Start: 11-27-2022 Plain X-ray of bilateral tibia and bilateral fibula C4 PLANNER-C Bambi Nam Work Phone: Start: 05-05-2022 Plain X-ray of bilateral femurs MD Estefanía may Work Phone: Start: 05-05-2022 Plain X-ray of bilateral tibia and bilateral fibula MD Estefanía Sutherland Work Phone: Appendectomy Bertha BLAND Arthroscopy knee w/m eniscus rpr medial/lateral Bertha BLAND Arthroscopy of knee Bertha BLAND Cervical polypectomy Bertha BLAND Colonoscopy Bertha BLAND Cyst (disorder) Bambi Browning Comment on above: 1969 Cystoscopy Bertha BLAND Hysterectomy Bertha BLAND Surgical procedure Bertha WILKINS Thyroidectomy Bertha BLAND Plan of Treatment Date Care Activity Detail Author Start: 11-30-2025 End: 11-30-2025 Patient encounter procedure [facility] Start: 10-26-2025 End: 10-26-2025 Patient encounter procedure [facility] Start: 08-29-2025 Screening for malignant neoplasm of breast Mammogram [facility] Start: 01-16-2025 Influenza vaccination Influenza Vaccine (#1) [facility] Start: 12-13-2024 End: 12-13-2024 Patient encounter procedure 12/13/2024 11:05 AM EDT Office Visit [facility] [address] [place] [phone] Kateryna Chávez MD [address] [place] [address] [facility] Start: 11-29-2024 End: 11-29-2024 Patient encounter procedure [facility] Comment on above: Arrived Start: 11-22-2024 End: 11-22-2024 Patient encounter procedure 11/22/2024 10:40 AM EDT Office Visit [facility] [address] [place] [phone] Flores Gaytan PA [address] [place] [address] [facility] [place] Start: 10-27-2024 End: 10-27-2024 Patient encounter procedure 10/27/2024 10:45 AM EDT Office Visit [facility] [address] [place] [phone] Rosalinda Bernstein PA [address] [facility] [address] [place] [address] [facility] Start: 10-12-2024 End: 10-12-2024 Patient encounter procedure 10/12/2024 3:40 PM EDT Office Visit [facility] [address] [place] [phone] Lory Busch PA [address] [place] [address] Arrived [facility] Comment on above: Arrived Start: 09-07-2024 End: 09-07-2024 [facility] Start: 08-27-2024 Screening for malignant neoplasm of breast Mammogram [facility] Start: 08-22-2024 End: 08-22-2024 Patient encounter procedure 08/22/2024 1:00 PM EDT Office Visit [facility] [address] [place] [address] Robert Ferreira, DO [address] [place] [address] [facility] Start: 07-20-2024 End: 07-20-2024 Patient encounter procedure [facility] Comment on above: Arrived Start: 06-21-2024 End: 06-21-2024 Patient encounter procedure [facility] Comment on above: Arrived Start: 06-13-2024 End: 06-13-2025 ECG 12 lead ECG 12 lead ECG Routine Preop testing Expected: 06/13/2024 (Approximate), Expires: 06/13/2025 [facility] Work Phone: Comment on above: Expected: 06/13/2024 (Approximate), Expi res: 06/13/2025 Start: 06-13-2024 End: 06-13-2024 Patient encounter procedure 06/13/2024 12:45 PM EST Office Visit [facility] [address] [place] [phone] Kevin Aguilar, DO [address] [place] [address] Basal cell carcinoma (BCC) of glabella [facility] Comment on above: Basal cell carcinoma (BCC) of glabella Start: 06-09-2024 End: 06-09-2024 Patient encounter procedure 06/09/2024 1:15 PM EST Office Visit [facility] [address] [place] [phone] Aamir James MD [address] [place], [place] [id number] [facility] Start: 06-07-2024 End: 06-07-2024 Patient encounter procedure [facility] [address] Comment on above: Arrived Start: 01-17-2024 Influenza vaccination Influenza Vaccine (#1) [facility] Start: 09-30-2023 Urine culture Urine Culture [facility] Start: 03-31-2023 [facility] Start: 03-12-2023 [facility] Start: 02-26-2016 Pneumococcal Vaccine: 65+ Years (1 of 1 - PCV) Pneumococcal Vaccine: 65+ Years (1 of 1 - PCV) [facility] Start: 1950 Screening for malignant neoplasm of colon [facility] Adalimumab [Mass/vol ume] in Serum or Plasma [facility] Adalimumab Ab [Mass/volume] in Serum or Plasma [facility] Bacteria identified in Urine by Culture Urine Culture [facility] Comprehensive metabo lic 2000 panel - Serum or Plasma [facility] Dermatopathology exam Dermatopat hology exam Pathology and Cytology Timed Neoplasm of unspecified behavior of bone, soft tissue, and skin Release Upon Ordering for 1 Occurrences starting 04/12/2024 [facility] Work Phone: Comment on above: Release Upon Ordering for 1 Occurrences starting 04/12/2024 Patient Education [facility] Work Phone: THIN PREP TIS PAP AN D HR HPV DNA THIN PREP TIS PAP AND HR HPV DNA Pathology and Cytology Routine Well woman exam with routine gynecological exam Ordered: 08/22/2024 [facility] Work Phone: Comment on above: Ordered: 08/22/2024 Urinalysis complete panel - Urine Urinalysis with reflex microscopic Lab Routine 09/07/2024 12:39 PM EDT [facility] Work Phone: [facility] Immunizations Immunization Date Immunization Notes Care Provider Fa cility 07-22-2024 tetanus toxoid, redu mattie diphtheria toxoid, and acellular pertussis vaccine, adsorbed Bertha BLAND [facility] 04-28-2024 influenza virus vaccine, unspecified formulation Bambi Browning [facility] 04-28-2024 influenza, high dose seasonal, preservative-free Kevin Aguilar DO Work Phone: [facility] 04-28-2024 pneumococcal 20-jomar nt conjugate vaccine Bambi Browning [facility] 04-21-2022 COVID-19 mRNA Bivale nt Booster (Pfizer) MD Estefanía Sutherland Work Phone: [facility] 04-21-2022 influenza virus vaccine, unspecified formulation Bertha BLAND [facility] 04-21-2022 Influenza, High-dose Seasonal, Quadrivalent, Preservative Free Kateryna Chávez MD Work Phone: [facility] 04-21-2022 Moderna Bivalent Booster Vaccination Kateryna Chávez MD Work Phone: [facility] 04-21-2022 Moderna SARS-CoV-2 50mcg/0.5mL Booster Kateryna Chávez MD Work Phone: [facility] 03-15-2021 COVID-19 mRNA Comirnaty (Pfizer) MD Estefanía Sutherland Work Phone: [facility] Comment on above: Result Comment: 2022: [id number] 03-15-2021 influenza virus vaccine, unspecified formulation Bertha BLAND [facility] 03-15-2021 Influenza, Seasonal, Quadrivalent, Adjuvanted Kateryna Chávez MD Work Phone: [facility] 01-24-2021 diphtheria, tetanus toxoids and pertussis vaccine Kateryna Chávez MD Work Phone: [facility] 08-08-2020 COVID-19 mRNA, Comirnaty (Pfizer) MD Estefanía Sutherland Work Phone: [facility] 07-11-2020 COVID-19 Luis Eduardo Gardner (Pfizer) MD Estefanía Sutherland Work Phone: [facility] 02-16-2020 influenza, injectabl e, quadrivalent, contains preservative Kateryna Chávez MD Work Phone: [facility] 07-01-2019 zoster vaccine recombinant Bertha BLAND [facility] 04-30-2019 influenza virus vaccine, unspecified formulation Bertha BLAND [facility] 04-30-2019 influenza, high dose seasonal, preservative-free Kateryna Chávez MD Work Phone: [facility] 04-30-2019 zoster vaccine recombinant Bertha BLAND [facility] Payers Date Payer Category Payer Self-pay [id number] 2022 Private Health Insurance [id number] 2018 Blue [employer] Blue [facility] [id number] 2016 Medicare [id number] [id number] .[id number] 1959 Blue Cross Blue Shield [id number] 2.16.840.1.433522.19 1959 Medicare [id number] 2.16.840.1.915337.19 1951 Unknown [id number] 2.16.840.1.267573.3.579.2 .593 1951 Unknown [id number] 2.16.840.1.002711.3.579.2 .593 1951 Unknown [id number] 2.16.840.1.238498.3.579.2 .593 1951 Unknown [id number] 2.16.840.1.763197.3.579.2 .593 1951 Unknown [id number] 2.16.840.1.154929.3.579.2 .593 1951 Unknown [id number] 2.16.840.1.699964.3.579.2 .593 1951 Unknown [id number] 2.16.840.1.543231.3.579.2 .593 1951 Unknown [id number] 2.16.840.1.238953.3.579.2 .593 1951 Unknown [id number] 2.16.840.1.518009.3.579.2 .593 1951 Unknown [id number] 2.16.840.1.109582.3.579.2 .593 1951 Unknown [id number] 2.16.840.1.467326.3.579.2 .593 1951 Unknown [id number] 2.16.840.1.703275.3.579.2 .593 1951 Unknown [id number] 2.16.840.1.707993.3.579.2 .727 1951 Unknown [id number] 2.16.840.1.777503.3.579.2 .727 1951 Unknown [id number] 2.16.840.1.931157.3.579.2 .727 1951 Unknown [id number] 2.16.840.1.554417.3.579.2 .72 1951 Unknown [id number] 2.16.840.1.763839.3.579.2 .727 1951 Unknown [id number] 2.16.840.1.091682.3.579.2 .72 1951 Unknown [id number] 2.16.840.1.927547.3.579.2 .72 1951 Unknown [id number] 2.16.840.1.158654.3.579.2 .72 1951 Unknown [id number] 2.16.840.1.212900.3.579.2 .125 1951 Unknown [id number] 2.16.840.1.890222.3.579.2 .1258 1951 Unknown [id number] 2.16.840.1.239429.3.579.2 .125 1951 Unknown [id number] 2.16.840.1.862973.3.579.2 .125 1951 Unknown [id number] 2.16.840.1.218529.3.579.2 .125 1951 Unknown [id number] 2.16.840.1.798624.3.579.2 .125 1951 Unknown [id number] 2.16.840.1.912382.3.579.2 .125 1951 Unknown [id number] 2.16.840.1.244274.3.579.2 .125 1951 Unknown [id number] 2.16.840.1.381321.3.579.2 .125 1951 Unknown [id number] 2.16.840.1.184670.3.579.2 .1259 1951 Unknown [id number] 2.16.840.1.818012.3.579.2 .1258 1951 Unknown [id number] 2.16.840.1.014910.3.579.2 .125 1951 Unknown [id number] 2.16.840.1.006945.3.579.2 .125 1951 Unknown [id number] 2.16.840.1.232275.3.579.2 .125 1951 Unknown [id number] 2.16.840.1.210044.3.579.2 .1258 1951 Unknown [id number] 2.16.840.1.991318.3.579.2 .1258 1951 Unknown [id number] 2.16.840.1.601724.3.579.2 .1258 1951 Unknown [id number] 2.16.840.1.480234.3.579.2 .125 1951 Unknown [id number] 2.16.840.1.212371.3.579.2 .1258 1951 Unknown [id number] 2.16.840.1.604044.3.579.2 .125 1951 Unknown [id number] 2.16.840.1.916339.3.579.2 .125 1951 Unknown [id number] 2.16.840.1.578215.3.579.2 .72 1951 Unknown [id number] 2.16.840.1.149468.3.579.2 .72 1951 Unknown [id number] 2.16.840.1.133628.3.579.2 .727 1951 Unknown [id number] 2.16.840.1.681797.3.579.2 .72 1951 Unknown [id number] 2.16.840.1.695491.3.579.2 .727 1951 Unknown [id number] 2.16.840.1.583559.3.579.2 .727 Unknown [facility] Health Claims [id number] Unknown [id number] 2.16.840.1.405251.3.579.2 .531 Unknown [id number] 2.16.840.1.143537.3.579.2 .531 Social History Date Type Detail Facility Unknown if ever smoked [employer] Other Start: 12-28-2023 End: 11-29-2024 Sex Assigned At [facility] Start: 05-05-2022 End: 02-24-2025 Tobacco smoking status [facility] Ex-smoker (finding) [facility] Comment on above: quite smoking 2001. did previously smoke 1.5-2 PPD Start: 1950 Sex Assigned At Female F [facility] Start: 11-19-2022 End: 05-13-2023 [facility] Comment on above: quite smoking 2001. did previously smoke 1.5-2 PPD End: 04-08-2002 History of tobacco use Current smoker [facility] End: 04-08-2002 History of tobacco use Cigarette Smoker [facility] Start: 04-17-2023 End: 06-21-2024 Tobacco use and exposure Smokeless tobacco non-user [facility] Start: 04-12-2024 End: 11-29-2024 Alcoholic beverage intake Current drinker of alcohol (finding) [facility] Start: 04-12-2024 End: 11-29-2024 Alcoholic beverage intake [facility] Start: 02-22-2023 Alcohol Comment caffeine intak e: 3-4 cups per day. [facility] Start: 11-19-2022 Gender identity Identifies as female gender (finding) [facility] Start: 06-21-2024 Alcohol Comment Less than one drink per month [facility] Start: 01-06-2015 End: 08-15-2024 Sex Female (finding) [facility] Sexual Orientation [facility] Medical Equipment Procedure Code Equipment Code Equipment Origin al Text Equipment Identifier Dates Arthroplasty, knee, total, minimally invasive Orthopaedic cement, non-medicated [id number] FDA Start: 12-11-2022 Arthroplasty, knee, total, minimally invasive Orthopaedic bone screw, non-bioabsorbable, sterile ()[id number] FDA Start: 12-11-2022 Arthroplasty, knee, total, minimally invasive Orthopaedic bone screw, non-bioabsorbable, sterile ()[id number] FDA Start: 12-11-2022 Arthroplasty, knee, total, minimally invasive Uncoated knee femur prosthesis ()[id number] FDA Start: 12-11-2022 Arthroplasty, knee, total, minimally invasive Tibial insert ()[id number] FDA Start: 12-11-2022 Arthroplasty, knee, total, minimally invasive Uncoated knee tibia prosthesis, metallic ()[id number] FDA Start: 12-11-2022 Arthroplasty, knee, total, minimally invasive Polyethylene patella prosthesis ()[id number] FDA Start: 12-11-2022 Goals Date Patient Goal Desired Activity /State Functional Status Date Assessment Result Facility 02-18-2024 Functional Status N/A [facility] 08-17-2023 Functional Status N/A [facility] 02-13-2023 Functional Status N/A [facility] 07-24-2022 Functional Status N/A [facility] Clinical Notes 04-02-2021 to 02-24-2025 Telephone Encounter - Almita Laureano - 01/11/2025 3:16 PM EDTTelephone Encounter - Almita Laureano - 01/11/2025 3:16 PM Baldev Chávez MD - 11/29/2024 11:05 AM EDT Note Date & Type Note Facility 02-24-2025 Hospital Discharg e instructions Patient Education 02/24/2025 11:36:08 Dietary Guidelines to Help Prevent Kidney Stones Dietary Guidelines to Help Prevent Kidney Stones Kidney stones are deposits of minerals and salts that form inside your kidneys. Your risk of developing kidney stones may be greater depending on your diet, your lifestyle, the medicines you take, and whether you have certain medical conditions. Most people can lower their risks of developing kidney stones by following these dietary guidelines. Your dietitian may give you more specific [...] include: ?8 oz (237 mL) of milk, nvnrmhj-qabappnagcoe-ahwep milk, and calcium-fortifiedfruit juice. Calcium-fortified means that [...] table and allow each person to add their own salt to taste. Use vegetable protein, [...] fish, or seafood. ?When you prepare animal proteins, cut pieces into small portion sizes. For [...] ?Have two kinds of vegetables at dinner. You may be told to limit foods that are high in a substance called oxalate. These include: ?Spinach (cooked), rhubarb, beets, sweet potatoes, and Turkmen chard. ?Peanuts. ?Potato chips, uzbek fries, and baked potatoes with skin on. ?Nuts and nut products. ?Chocolate. If you regularly take a diuretic medicine, make sure to eat at least 1 or 2 servings of fruits or vegetables that are high in potassium each day. These include: ?Avocado. ?Banana. ?Meriwether, prune, carrot, or tomato juice. ?Baked potato. ?Cabbage. ?Beans and split peas. Lifestyle Drink enough fluid to keep your urine pale yellow. This is the most important thing you can do. Spread your fluid intake throughout the day. If you drink alcohol: ?Limit how much you have to: ?0 1 drink a day for women who are not . ?0 2 drinks a day for men. ?Know how much alcohol is in your drink. [...] provider and dietitian about taking daily supplements. Depending on your health and the cause of your kidney stones, you may be told: ?Do not take high-dose supplements of vitamin C (1,000 mg a day or more). ?To take a calcium supplement. ?To take a daily probiotic supplement. ?To take other supplements such as magnesium, fish oil, or vitamin B6. Take olji-jzw-qhfijtc and prescription medicines only as told by [...] sausages, meat loaves, and hot dogs. Dairy Cheeses. Beverages Regular soft drinks. Regular vegetable juice. Seasonings and condiments Seasoning blends with salt. Salad dressings. Soy sauce. Ketchup. Barbecue sauce. Other foods Canned soups. Canned pasta sauce. Casseroles. Pizza. Lasagna. Frozen meals. Potato chips. Egyptian fries. The items listed above may not [...] with your health care provider. Document Revised: 08/14/2022 Document Reviewed: 08/14/2022 [employer] Patient Education 2023 [employer] Follow Up Care 02/18/2024 13:27:06 With:EDWINA MOSLEY, Bertha Vu, AMYL Address: [facility] [address] [place] [address]- When: Unknown [facility] 02-24-2025 Note Patient Education Nephrology Dietary Guidelines to Help Prevent Kidney Stones Kidney stones are deposits of minerals and salts that form inside your kidneys. Your risk of developing kidney stones may be greater depending on your diet, your lifestyle, the medicines you take, and whether you have certain medical conditions. Most people can lower their risks of developing kidney stones by following these dietary guidelines. Your dietitian may give you more specific instructions depending on your overall health and the type of kidney stones you tend to develop. What are tips for following this plan? Reading food labels ??? Choose foods with no salt added or low-salt labels. Limit your salt (sodium) intake to less than 1,500 mg a day. ??? Choose foods with calcium for each meal and snack. Try to eat about 300 mg of calcium at each meal. Foods that contain 200?500 mg of calcium a serving include: ? 8 oz (237 mL) of milk, vsoyutv-dxwahquneebf-fmzsm milk, and calcium-fortifiedfruit juice. Calcium-fortified means that calcium has been added to these drinks. ? 8 oz (237 mL) of kefir, yogurt, and soy yogurt. ? 4 oz (114 g) of tofu. ? 1 oz (28 g) of cheese. ? 1 cup (150 g) of dried figs. ? 1 cup (91 g) of cooked broccoli. ? One 3 oz (85 g) can of sardines or mackerel. Most people need 1,000?1,500 mg of calcium a day. Talk to your dietitian about how much calcium is recommended for you. Shopping ??? Buy plenty of fresh fruits and vegetables. Most people do not need to avoid fruits and vegetables, even if these foods contain nutrients that may contribute to kidney stones. ??? When shopping for convenience foods, choose: ? Whole pieces of fruit. ? Pre-made salads with dressing on the side. ? Low-fat fruit and yogurt smoothies. ??? Avoid buying frozen meals or prepared deli foods. These can be high in sodium. ??? Look for foods with live cultures, such as yogurt and kefir. ??? Choose high-fiber grains, such as whole-wheat breads, oat bran, and wheat cereals. Cooking ??? Do not add salt to food when cooking. Place a salt shaker on the table and allow each person to add their own salt to taste. ??? Use vegetable protein, such as beans, textured vegetable protein (TVP), or tofu, instead of meat in pasta, casseroles, and soups. Meal planning ??? Eat less salt, if told by your dietitian. To do this: ? Avoid eating processed or pre-made food. ? Avoid eating fast food. ??? Eat less animal protein, including cheese, meat, poultry, or fish, if told by your dietitian. To do this: ? Limit the number of times you have meat, poultry, fish, or cheese each week. Eat a diet free of meat at least 2 days a week. ? Eat only one serving each day of meat, poultry, fish, or seafood. ? When you prepare animal proteins, cut pieces into small portion sizes. For most meat and fish, one serving is about the size of the palm of your hand. ??? Eat at least five servings of fresh fruits and vegetables each day. To do this: ? Keep fruits and vegetables on hand for snacks. ? Eat one piece of fruit or a handful of berries with breakfast. ? Have a salad and fruit at lunch. ? Have two kinds of vegetables at dinner. ??? You may be told to limit foods that are high in a substance called oxalate. These include: ? Spinach (cooked), rhubarb, beets, sweet potatoes, and Turkmen chard. ? Peanuts. ? Potato chips, uzbek fries, and baked potatoes with skin on. ? Nuts and nut products. ? Chocolate. ??? If you regularly take a diuretic medicine, make sure to eat at least 1 or 2 servings of fruits or vegetables that are high in potassium each day. These include: ? Avocado. ? Banana. ? Meriwether, prune, carrot, or tomato juice. ? Baked potato. ? Cabbage. ? Beans and split peas. Lifestyle ??? Drink enough fluid to keep your urine pale yellow. This is the most important thing you can do. Spread your fluid intake throughout the day. ??? If you drink alcohol: ? Limit how much you have to: ? 0?1 drink a day for women who are not . ? 0?2 drinks a day for men. ? Know how much alcohol is in your drink. In the [place] one drink equals one 12 oz bottle of beer (355 mL), one 5 oz glass of wine (148 mL), or one 1? oz glass of hard liquor (44 mL). ??? Lose weight if told by your health care provider. Work with your dietitian to find an eating plan and weight loss strategies that work best for you. General information ??? Talk to your health care provider and dietitian about taking daily supplements. Depending on your health and the cause of your kidney stones, you may be told: ? Do not take high-dose supplements of vitamin C (1,000 mg a day or more). ? To take a calcium supplement. ? To take a daily probiotic supplement. ? To take other supplements such as magnesium, fish oil, or vitamin B6. ??? Take gipj-iob-dasgxpi and prescription medicines only as told by your health (more content not included)... [facility] 01-11-2025 Telephone encounter Note L TKA 10/22/23 , R TKA 12/11/22, KIRSTIE 10/27/24 Has dental appt 01/26/25 and needs antibiotic rx [facility] 01-11-2025 Miscellaneous Notes L TKA 10/22/23 , R TKA 12/11/22, KIRSTIE 10/27/24 Has dental appt 01/26/25 and needs antibiotic rx [facility] documented in this encounter [facility] 11-29-2024 History of Presen t illness [...] Examined Right arm Examined Patient wearing nail welsh, Denies dark streaks on toenails Left arm [...] Visit: 1 year documented in this encounter [facility] 10-27-2024 History of Presen t illness [...] 01/22/23 IN CHANGE NO MDP[facility]PR[facility]NISONE [facility] [facility] WOULD LIKE TO RENEW HANDMiaoyushang PLACGetting-in FOR 2 VEHICLES TODAY. 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 documented in this encounter [facility] 10-12-2024 History of Presen t illness Narrative Images from the original note were not included. Subjective Gia Ruiz is a 74 y.o. year old female Chief Complaint Patient presents with Cerebrovascular Accident Past Medical History: Diagnosis Date Abnormal Pap smear of cervix Acid reflux Alcohol abuse BMI 33.0-33.9,adult Crohn's disease (CMS/HCC) Depression ([facility]/HCC) Depression screen Diabetes type 2, controlled (CMS/HCC) Diabetes, gestational DM2 (diabetes mellitus, type 2) (CMS/HCC) Dysuria 06/12/2024 Encounter for gynecological examination (general) (routine) without abnormal findings GERD (gastroesophageal reflux disease) H/O degenerative disc disease Hemangioma Hepatitis A History of being hospitalized STROKE 08/2019, childbirth Hyperlipidemia (CMS/HCC) Hypertension (CMS/HCC) Hypothyroid (CMS/HCC) Hypothyroidism (CMS/HCC) Kidney disease Labial abscess 06/12/2024 Lacunar infarction ([facility]/HCC) Neurologic disorder OA (osteoarthritis) JOSE RAMON (obstructive sleep apnea) Post menopausal syndrome Post-menopausal Pre-op exam 06/12/2024 PVD (peripheral vascular disease) ([facility]/HCC) Skin texture changes 06/12/2024 Thyroid cancer ([facility]/HCC) Urge incontinence 06/12/2024 Urinary frequency 06/12/2024 Well woman exam Past Surgical History: Procedure Laterality Date APPENDECTOMY BASAL CELL CARCINOMA EXCISION 06/18/2024 BLADDER SUSPENSION 2021 CERVICAL POLYPECTOMY 2007 COLONOSCOPY 2018 CYSTOSCOPY x2 EGD 2008 KNEE ARTHROSCOPY W/ MENISCAL REPAIR Right 2012 KNEE ARTHROSCOPY W/ MENISCAL REPAIR Left 2013 [...] Age of Onset Hypertension Mother Rosa Maria Holcombehl Lung cancer Mother Rosa Maria Holcombehl Diabetes Mother Rosa Maria Scott Stroke Mother Rosa Maria Scott Depression Mother Rosa Maria Scott Obesity Mother Rosa Maria Scott Arthritis Mother Rosa Maria Scott Cancer Mother Rosa Maria Holcombehl Other (parkinsons) Father Tex Chavez Alzheimer's disease Father Tex Chavez Hypertension Father Txe Chavez Diabetes Father Tex Chavez Heart failure Brother Karthik Chavez Cancer Maternal Grandmother Syed Osborne Heart disease Maternal Grandfather Hypertension Sibling Heart disease Sibling Cancer Sibling Depression Sibling Cancer Mother's Sister Loar Riddle Cancer Mother's Sister Teri Diego Cancer [...] Review Audit Reviewed by Carmelita Macdonald MA ([employer]t Lime Drawer) on 10/12/24 at 1549 Medication Order Taking? Sig Documenting Provider Last Dose Status acetaminophen (Tylenol 8 Hour) 650 MG ER tablet [id number] No Take by mouth. Historical Provider, Taking Active adalimumab (Humira) 40 MG/0.8ML Prefilled Syringe Kit prefilled syringe [id number] No 0.8 ml Subcutaneous Historical ProviderMD Not Taking Active amoxicillin (Amoxil) 500 MG tablet [id number] 4 tabs PO once 30-60 mins before procedure with food PONCHO Ulloa Active ascorbic acid (Vitamin C) 250 MG chewable tablet [id number] No Vitamin C Historical ProviderMD Taking Active aspirin 81 MG EC tablet [id number] Take 1 tablet by mouth in the morning. Historical Provider, Active atorvastatin (Lipitor) 20 MG tablet [id number] No Take 1 tablet every day by oral route for 30 days. Historical Provider, Taking Active Bacillus Coagulans-Inulin (PROBIOTIC-PREBIOTIC PO) [id number] No Probiotic Historical Provider, Taking Active baclofen (Lioresal) 10 MG tablet [id number] TAKE 1 TABLET BY MOUTH IN THE MORNING AND 2 BEFORE BEDTIME NEEDED PONCHO Barrientos Active calcium carbonate EX (Tums Extra Strength) 750 MG chewable tablet [id number] No Chew 300 mg. Historical ProviderMD Taking Active cholecalciferol (Vitamin D-3) 1.25 MG (86015 UT) capsule [id number] Take 50,000 Units by mouth 1 (one) time per week 1 capsule Orally twice a month PONCHO Barrientos Active coenzyme Q-10 100 MG ER capsule [id number] No as directed Orally Historical MD Fausto Taking Active Cranberry 500 MG chewable tablet [id number] No Chew. Jurgen Lambert MD Taking Active ferrous sulfate 325 (65 Fe) MG tablet [id number] Take 325 mg by mouth in the morning. Take with meals. PONCHO Barrientos Active levothyroxine (Synthroid, Levoxyl) 125 MCG tablet [id number] No Take 1 tablet every day by oral route for 90 days. Juregn Lambert MD Taking Active liothyronine (Cytomel) 5 MCG tablet [id number] No 1 (one) time each day at the same time. Jurgen Lambert MD Taking Active losartan-hydroCHLOROthiazide (Hyzaar) 100-25 MG tablet [id number] No Take by mouth. Jurgen Lambert MD Taking Active magnesium gluconate (Magonate) 500 MG tablet [id number] No Take by mouth. Historical MD Fausto Taking Active Melatonin 5 MG chewable tablet [id number] No Melatonin Historical MD Fausto Taking Active metFORMIN (Glucophage) 500 MG tablet [id number] No Take 3 tablets every day by oral route for 90 days. Historical MD Fausto Taking Active Methylcobalamin (Methyl B-12) 500 MCG chewable tablet [id number] No See Instructions, 5 mg Chewed, Refills(s) 0 Jurgen Lambert MD Taking Active Multiple Vitamin (Multi Vitamin) tablet [id number] No 1 (one) time each day at the same time. Jurgen Lambert MD Taking Active [place]-3 Fatty Acids (Fish Oil) 1200 MG capsule delayed-release [id number] No Take by mouth. Historical MD Fausto Taking Active omeprazole (PriLOSEC) [address] capsule [id number] No Take 1 capsule every day by oral route for 90 days. Jurgen Lambert MD Taking Active ondansetron (Zofran) 8 MG tablet [id number] Take 8 mg by mouth every 8 (eight) hours if needed for nausea PONCHO Ulloa Active Tirzepatide (Mounjaro) 5 MG/0.5ML solution auto-injector [id number] Inject 5 mg under the skin 1 (one) time per week Jurgen Lambert MD Active Zinc Sulfate (ZINC 15 PO) [id number] No Zinc Historical ProviderMD Taking Active HPI [...] triceps, wrist extensors, wrist extensors, wrist flexor, strapper and buffer strength 5/5. LUE Strength deltoid, biceps, triceps, wrist extensors, wrist extensors, wrist flexor, strapper and buffer strength 5/5. RLE Strength illopsoas, quadriceps, tibialis [...] medullary stroke in August 2019 evaluated at [facility]. She initially presented with left sided [...] Lory Busch PA-C documented in this encounter [facility] 08-22-2024 History of Presen t illness [...] Vitamin (Multi Vitamin) tablet Every 24 hours [place]-3 Fatty Acids (Fish Oil) 1200 MG capsule [...] 11/26/2022 Class 1 obesity 11/26/2022 Crohn's disease ([facility]) 11/26/2022 Diabetes mellitus ([facility]) 11/26/2022 Hyperlipidemia ([facility]) 11/26/2022 Hypertension ([facility]) 10/03/2019 Hypothyroidism ([facility]) 11/26/2022 Incomplete bladder emptying 11/26/2022 Malignant neoplasm of thyroid gland ([facility]) 04/13/2006 JOSE RAMON (obstructive sleep apnea) 11/26/2022 Osteoarthritis of knee 11/26/2022 Osteoarthritis 11/26/2022 Primary osteoarthritis of right knee 11/26/2022 Primary osteoarthritis 11/26/2022 Status post total knee replacement 11/26/2022 UTI (urinary tract infection) 11/26/2022 Kidney stone 12/25/2022 Type II diabetes mellitus ([facility]) 12/25/2022 Hypertensive disorder ([facility]) 10/03/2019 Acute pain of left knee 11/12/2023 Cerebrovascular accident (CVA) ([facility]) 12/19/2023 Left hemiparesis ([facility]) 12/19/2023 Paresthesia of skin 12/19/2023 Spasticity 12/19/2023 DDD (degenerative disc disease), lumbar 12/19/2023 Resolved Ambulatory Problems Diagnosis Date Noted Alcohol abuse 11/26/2022 Dysuria 06/12/2024 Labial abscess 06/12/2024 Pre-op exam 06/12/2024 Skin texture changes 06/12/2024 Urge incontinence 06/12/2024 Urinary frequency 06/12/2024 Past Medical History: Diagnosis Date Abnormal Pap smear of cervix BMI 33.0-33.9,adult Depression (CMS/HCC) Depression screen Diabetes type 2, controlled (CMS/HCC) Diabetes, gestational DM2 (diabetes mellitus, type 2) (CMS/HCC) Encounter for gynecological examination (general) (routine) without abnormal findings H/O degenerative disc disease Hemangioma Hepatitis A History of being hospitalized Hypothyroid (CMS/HCC) Kidney disease Lacunar infarction (CMS/HCC) Neurologic disorder OA (osteoarthritis) Post menopausal syndrome Post-menopausal PVD (peripheral vascular disease) (CMS/HCC) Thyroid cancer (CMS/HCC) Well woman exam HISTORY PAST MEDICAL HISTORY [...] Kidney disease Labial abscess 06/12/2024 Lacunar infarction ([facility]/HCC) Neurologic disorder OA (osteoarthritis) JOSE RAMON (obstructive sleep apnea) Post menopausal syndrome Post-menopausal Pre-op exam 06/12/2024 PVD (peripheral vascular disease) ([facility]/HCC) Skin texture changes 06/12/2024 Thyroid cancer ([facility]/HCC) Urge incontinence 06/12/2024 Urinary frequency 06/12/2024 Well [...] Rosa Maria Chavez Depression Mother Rosa Maria Chavez Obesity Mother Rosa Maria Chavez Arthritis Mother Rosa Maria Chavez Cancer Mother Rosa Maria Chavez Other (parkinsons) [...] nursing note reviewed. Exam conducted with a cloth weaver present. Vitals: Estimated body mass index is [...] Robert Ferreira DO documented in this encounter [facility] 08-15-2024 Evaluation note Diagnosis Onset Date Resolution Crohn disease acute August 15, 2024 10:31am GERD (gastroesophageal reflux disease) acute August 15, 2024 10:31am residential (current) use of immunosuppressive biologic acute August 15, 2024 10:31am [facility] Work Phone: [phone] 102-345603-05-2025 History of Present illness Narrative* Kevin Aguilar [...] her back as needed documented in this [facility]02-06-2025 Telephone encounter Note* Telephone Encounter - Myra Turcios - 06/23/2024 1:09 PM EST Patient notified [facility] [id number] Miscellaneous Notes* Telephone Encounter - Myra Turcios - 06/23/2024 1:09 PM EST Patient notified * Telephone Encounter - PONCHO Ulloa - 06/23/2024 12:17 PM EST Rx sent to pharmacy * Telephone Encounter - Myra Turcios - 06/23/2024 11:50 AM EST Patient called and left vm requesting antibiotic be sent to her pharmacy for her upcoming dentist appt. documented in this encounterParkland Health CenterPmnhlnctbs04-01-2036 Telephone encounter Note* Telephone Encounter - PONCHO Ulloa - 06/23/2024 12:17 PM EST Rx sent to pharmacy [facility] [id number] Telephone encounter Note* Telephone Encounter - Myra Turcios - 06/23/2024 11:50 AM EST Patient called and left vm requesting antibiotic be sent to her pharmacy for her upcoming dentist appt. [facility] [id number] History of Present illness Narrative* Kevin Aguilar [...] back in a month documented in this encounterNOMiss[facility] [id number] History of Present illness Narrative* Kevin Aguilar DO - 06/13/2024 12:45 PM EST Allergies as of 06/13/2024 - Reviewed 06/09/2024 Allergen Reaction Noted Sulfamethoxazole-trimethoprim Rash 11/26/2022 Hydrocodone-acetaminophen GI intolerance 11/26/2022 Oxycodone-acetaminophen Hallucinations 11/26/2022 Wound dressing adhesive Rash 08/13/2023 Past Medical History: Diagnosis Date Abnormal Pap smear of cervix Acid reflux Alcohol abuse BMI 33.0-33.9,adult Crohn's disease ([facility]) Depression ([facility]) Depression screen Diabetes type 2, controlled ([facility]) Diabetes, gestational DM2 (diabetes mellitus, type 2) ([facility]) Encounter for gynecological examination (general) (routine) without abnormal findings GERD (gastroesophageal reflux disease) H/O degenerative disc disease Hemangioma Hepatitis A History of being hospitalized STROKE 08/2019, childbirth Hyperlipidemia (CMS/HCC) Hypertension (CMS/HCC) Hypothyroid (CMS/HCC) Hypothyroidism (CMS/HCC) Kidney disease Lacunar infarction (CMS/HCC) Neurologic disorder OA (osteoarthritis) JOSE RAMON (obstructive sleep apnea) Post menopausal syndrome Post-menopausal PVD (peripheral vascular disease) (CMS/HCC) Thyroid cancer ([facility]/HCC) Well woman exam Current Outpatient Medications: acetaminophen [...] Rfl: 0 cholecalciferol (Vitamin D-3) 1.25 MG (91349 UT) capsule, Take 50,000 Units by mouth [...] at the same time., Disp: , Rfl: [place]-3 Fatty Acids (Fish Oil) 1200 MG capsule [...] has consented to proceed. documented in this encounterParkland Health [id number] History of Present illness Narrative* Aamir James [...] meds, nerve injury, and recurrence were addressed.) [place] Protocol: Procedure explained and questions answered to [...] sodium bicarbonate Procedure Details: Biopsy accession number: [id number] Biopsy lab: [facility] Date of biopsy: 04/12/2024 Frozen section biopsy [...] ENT Next visit: 12/13/2024 documented in this encounterParkland Health [id number] NoteNurse Consultation Note Reason for Visit Pt [...] virus vaccine, inactivated 04/21/2022 Recorded SARS-CoV-2 (COVID-19) [id number] 04/21/2022 Recorded influenza virus vaccine, inactivated 03/15/2021 Recorded SARS-CoV-2 (COVID-19) mRNA BNT-162b2 vax 03/15/2021 Recorded 2022-09-17: [id number] SARS-CoV-2 (COVID-19) mRNA BNT-162b2 vax 08/08/2020 Given SARS-CoV-2 (COVID-19) mRNA BNT-162b2 vax 07/11/2020 Given zoster vaccine, inactivated 07/01/2019 Recorded zoster vaccine, inactivated 04/30/2019 Recorded influenza virus vaccine, inactivated 04/30/[facility] NotePatient Education Cardiovascular Hypertension, Adult Hypertension [...] Keep all follow-up visits. Medicines ??? Take yqjb-mrf-xcgscsx and prescription medicines only as told by [...] ??? Hypertension is a (more content not included)...[facility] 04-12-2024 History of Present illness Narrative* [...] of bone, soft tissue, and skin [facility] pearly papule Lesion biopsy Type of biopsy: [...] Visit: pending biopsy results documented in this encounterParkland Health [id number] Hospital Discharge instructions Patient Education 02/18/2024 13:24:16 Kidney Stones, Khvx-gy-Wrmd Kidney Stones Kidney stones are rock-like masses [...] Follow these instructions at home: Medicines Take edqb-txn-yrurwbc and prescription medicines only as told by [...] provider. Document Revised: 12/26/2022 Document Reviewed: 12/26/2022 Voucheres Patient Education 2023 [employer]. Follow Up Care 08/17/2023 12:32:41 With:EDWINA MOSLEY, Bertha Vu, URL Address: [address] [place] [address]- When:1 year Comments:ORION granger [facility] 10-03-2024 NotePatient Education Urology Kidney Stones Kidney [...] these instructions at home: Medicines ? Take aela-rcn-uzwagfj and prescription medicines only as told by [...] provider. Document Revised: 12/26/2022 Document Reviewed: 12/26/2022 Voucheres Patient Education ? 2023 [employer] 08-17-2023 Hospital Discharge instructions Patient Education [...] Follow these instructions at home: Medicines Take kezz-flm-gsgdxgl and prescription medicines only as told by [...] provider. Document Revised: 01/23/2021 Document Reviewed: 01/23/2021 Voucheres Patient Education 2022 [employer]. Follow Up Care 02/13/2023 10:34:47 With:EDWINA MOSLEY, Bertha Vu, URL Address: [facility] [address] [place] [address] [phone] When: Unknown Comments:6 mos w/ KUDemarcus and TIM, nurse visit for PVR in 1 month [facility] 11-14-2023 Procedure [facility]10-26-2023 Procedure [facility]09-29-2023 Hospital Discharge instructions Patient Education 02/13/2023 10:30:11 Urinary Tract Infection, Adult, Pwer-hv-Nkip Urinary Tract Infection, Adult A urinary tract [...] Follow these instructions at home: Medicines Take pwka-saj-udyczxh and prescription medicines only as told by [...] provider. Document Revised: 12/14/2020 Document Reviewed: 12/14/2020 Vou[employer]res Patient Education 2022 [employer]. 02/13/2023 10:30:09 Dietary Guidelines to Help Prevent [...] include: ?8 oz (237 mL) of milk, wtjgsjf-bhcpscmntgje-xeaob milk, and calcium- fortifiedfruit juice. Calcium-fortified means [...] ?Spinach (cooked), rhubarb, beets, sweet potatoes, and Turkmen chard. ?Peanuts. ?Potato chips, uzbek fries, and baked potatoes with skin on. ?Nuts and nut products. ?Chocolate. If you regularly take a diuretic medicine, make sure to eat at least 1 or 2 servings of fruits or vegetables that are high in potassium each day. These include: ?Avocado. ?Banana. ?[place]ether, prune, carrot, or tomato juice. ?Baked potato. [...] magnesium, fish oil, or vitamin B6. Take hacw-wdo-ernauna and prescription medicines only as told by [...] Casseroles. Pizza. Lasagna. Frozen meals. Potato chips. Egyptian fries. The items listed above may not [...] provider. Document Revised: 01/13/2022 Document Reviewed: 01/13/2022 Voucheres Patient Education 2022 [employer]. Follow Up Care 12/05/2022 12:34:13 With:EDWINA MOSLEY, Bertha Vu, URL Address: [facility] [address] [place] [address]- When:Within 6 Month(s) Comments:w/PVR [facility] 03-14-2023 Hospital Discharge instructions Patient Education [...] [facility] [address], [place] [address]- Business (1) When:11/28/2022 09:46:34 [facility]03-09-2023 Evaluation note* Encounter Date Diagnosis Assessment Notes Treatment Notes Treatment Clinical Notes Jul, Crohns disease (ICD-10 - K50.90) Continue Humira as directed [facility] Other 05-03-2022 Evaluation note* Encounter Date Diagnosis Assessment Notes Treatment Notes Treatment Clinical Notes September, Ulcerative colitis (ICD-10 - K51.90) [facility] Other 04-20-2022 History general Narrative - Reported* Type Description Date Medical History thyroid cancer Medical History thyroidectomy Medical History appendectomy Medical History inflammation of colon Medical History hypertension Medical History STROKE 09/04 Surgical History appendectomy Surgical History thyroidectomy 2001 Hospitalization History see above [facility] Other 11-16-2021 Evaluation note* Encounter Date Diagnosis Assessment Notes Treatment Notes Treatment Clinical Notes Mar, Ulcerative colitis (ICD-10 - K51.90) Continue Humira - start citrate free [facility] Other Evaluation + Plan note Future Appointments Appointment Date:07/22/2022 03:00:00 PM Scheduled Provider: Location:[facility] Appointment Type:Urology CALL PAT FT Appointment Date:07/29/2022 08:00:00 AM Scheduled Provider: Location:[facility] Appointment Type:Urology FT Appointment Date:07/29/2022 09:15:00 AM Scheduled Provider: Location:[facility] Appointment Type:Urology FT Diagnostic Tests Pending * Urine Culture [facility] Future Appointments Appointment Date:11/17/2022 11:45:00 AM Scheduled Provider:[facility] BLAND [facility] Visit [facility] [place] Evaluation + Plan note Future Appointments Appointment Date:11/17/2022 11:45:00 AM Scheduled Provider:Bertha BLAND MD [facility] Type:[facility]O Office Visit Diagnostic Tests Pending * Urine Culture [facility]23/22 [facility] Future Appointments Appointment Date:12/05/2022 11:00:00 AM Scheduled Provider:Bertha BLAND MD [facility] Type:[facility]O Office Visit Diagnostic Tests Pending * Urine Culture 10/17/22 [facility] Future Appointments Appointment Date:12/05/2022 11:00:00 AM Scheduled Provider:Bertha BLAND MD [facility] Type:[facility] Office Visit [facility] evaluation + Plan note Future Appointments Appointment Date:05/13/2023 02:00:00 PM Scheduled Provider: [facility] App[facility] Type:FM Medicare Wellness Subsequent Appointment Date:08/17/2023 10:45:00 AM Scheduled Provider:Bertha BLAND MD [facility] Type:[facility]O Office Visit [facility] evaluation + Plan note Future Appointments Appointment Date:08/17/2023 10:45:00 AM Scheduled Provider:Bertha BLAND MD Location:[facility] [place] Appointment Type:URO Office Visit Appointment Date:05/13/2024 01:00:00 PM Scheduled Provider: Location:[facility] Appointment Type:FM Medicare Wellness Subsequent [facility] Future Appointments Appointment Date:09/14/2023 10:00:00 AM Scheduled [facility] Nurse Visit Appointment Date:02/19/2024 10:45:00 AM Scheduled Provider:Bertha BLAND MD [facility] Office Visit Appointment Date:05/13/2024 01:00:00 PM Scheduled Provider: Location:[facility] Appointment Type:FM Medicare Wellness Subsequent [facility] evaluation + Plan note Future Appointments Appointment Date:10/05/2023 11:20:00 AM Scheduled Provider:Bambi Reynolds Location:[facility] Appointment Type:FM Open Appointment Date:02/19/2024 10:45:00 AM Scheduled Provider:Bertha BLAND MD [facility] Office Visit Appointment Date:05/05/2024 01:00:00 PM Scheduled Provider: Location:[facility] Appointment Type:FM Medicare Wellness Subsequent [facility] evaluation + Plan note Future Appointments Appointment Date:02/19/2024 10:45:00 AM Scheduled Provider:Bertha BLAND MD [facility] Office Visit Appointment Date:05/05/2024 01:00:00 PM Scheduled Provider: Location:[facility] Appointment Type:FM Medicare Wellness Subsequent Diagnostic Tests Pending * Urine Culture 01/21/24 [facility] Evaluation + Plan note Future Appointments Appointment Date:05/05/2024 01:00:00 PM Scheduled Provider: Location:[facility] Appointment Type:FM Medicare Wellness Subsequent Appointment Date:02/17/2025 11:00:00 AM Scheduled Provider:Bertha BLAND MD [facility] Type:URO Office Visit [facility] evaluation + Plan note Future Appointments Appointment Date:08/29/2024 10:00:00 AM Scheduled Provider:Bambi Reynolds Location:[facility] Appointment Type:FM Open Appointment Date:02/17/2025 11:00:00 AM Scheduled Provider:Bertha BLAND MD [facility] Type:URO Office Visit Appointment Date:05/16/2025 01:00:00 PM Scheduled Provider: [facility] Type[facility]FM Medicare Wellness Subsequent [facility] Evaluation + Plan note Future Appointments Appointment Date:05/16/2025 01:00:00 PM Scheduled Provider: [facility] Type:FM Medicare Wellness Subsequent [facility] noteNo assessment information available [facility] Work Phone: Evaluation noteNo InformationNort ShareHows Other Evaluation note* Diagnosis Onset Date Resolution Status Crohn disease acute [facility] Work Phone: Evaluation note* Diagnosis Melanocytic nevi [...] x disease) acute August 15, 2024 10:31am [facility] Work Phone: Evaluation note* Diagnosis Well woman exam with routine gynecological exam Routine gynecological examination Encounter for screening mammogram for malignant neoplasm of breast documented in this encounter [facility] HealthcareEvaluation note* Diagnosis Cerebrovascular accident (CVA), unspecified mechanism (CMS/HCC)- Primary Spasticity Abnormal involuntary movements Lumbosacral radiculopathy Thoracic or lumbosacral neuritis or radiculitis, unspecified Degeneration of intervertebral disc of lumbar region, unspecified whether pain present documented in this encounter [facility] Diagnosis S/P total knee arthroplasty, left- Primary S/P TKR (total knee replacement), right Right knee pain, unspecified chronicity Left knee pain, unspecified chronicity Gait disturbance, post-stroke documented in this encounter [facility] HealthcareEvaluation note* Diagnosis Melanocytic nevus of trunk- Primary Benign neoplasm of skin of trunk, except scrotum Seborrheic keratosis History of basal cell carcinoma Personal history of other malignant neoplasm of skin Androgenic alopecia Other alopecia documented in this encounter [facility] HealthcareHistory and physical note Author Cesar Estrada [facility] March 12, 2023 9:42am Note Date/Time March 12, 2023 9 :42am [facility] [address] [place] [address] Gastroenterology H&P Signed Patient: Gia Ruiz MR#: [id number] : 1950 Acct:[id number] Age/Sex: 73 / F Adm Date: 3 Loc: Room: Type: [facility] Attending Dr: Cesar Estrada MD Copies to: MD Bambi Mcleod CNP~ Date of Service: 03/12/2023 HISTORY & PHYSICAL: [...] Estrada MD Documented By: Cesar Estrada MD 03/12/2341 Signed By: <Electronically signed by Cesar Estrada MD> 03/12/2342 [facility] Work Phone: History and physical note Author Cesar Estrada [facility] March 31, 2023 1:33pm Note Date/Time March 31, 2023 1:33pm [facility] [address] [place] [address] Gastroenterology H&P Signed Patient: Gia Ruiz MR#: [id number] : 1950 Acct:[id number] Age/Sex: 73 / F Adm Date: 3 Loc: Room: Type: [facility] Attending Dr: Cesar Estrada MD Copies to: MD Bambi Mcleod CNP~ [...] <Electronically signed by Cesar Estrada MD> 03/31/23 2693 [facility] Work Phone: Hisldpe general Narrative - Reported* Type Description Date Medical History thyroid cancer Medical History thyroidectomy Medical History appendectomy Medical History inflammation of colon Medical History hypertension Medical History STROKE 09/04 Surgical History appendectomy Surgical History thyroidectomy 2001 Hospitalization History see above [employer] Other Hospital course Narrative No data available for this section [facility] Discharge instructions No data available for this section [facility] Discharge instructions Additional Instructions DISCHARGE INSTRUCTIONS [...] NOT operate machinery such as power tools, Able [employer]icen mowers, snow blowers, sewing machines, etc. for [...] problems. -Follow up with PCP. -Office number [phone].[facility] Work Phone: Hospital Discharge instructions Additional Instructions [...] problems. -Follow up with PCP. 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) use of immunosuppres sive biologic August 15, 2024 10:31am Chief Complaint Admit Date 3-4 Month Follow up February 07, 2025 1:30pm Family History No Family History Records Found [...] Time Advance Directives No July 27 6:38am Advance Directive Response Recorded Date/ Time Advance Directives No October 25 11:22am Summary Purpose Additional Source Comments REASON FOR VISIT (unrecogniz ed section and content) Reason Comments Suspicious Skin Lesion Reason Comments Cerebrovascular Accident Reason Comments Mohs Micrographic Surgery Reason Comments Mohs Reconstruction New patient : Mohs g labella Specialty Diagnoses / Procedures Referred By Daniela t Referred To Contact Otolaryngology Diagnoses Basal cell carcinoma (BCC) of glabella Procedures [facility] OFFICE/OUTPATIENT NEW HIGH MDM 60 MINUTES Aamir James MD [address] [place] [address] Phone: tel: fax: Kevin Aguilar W, DO [address] [place] [address] Phone: tel: fax: Referral ID Status Reason Start Date Expiration Date V isits Requested Visits Authorized [id number] Closed Specialty Services Required 06/09/2024 12/06/2024 1 [...] Active Member Role Status Dates Bambi Browning C4 PLANNER-C Primary Care Provider Active Team Status: Inactive Member Role Status Dates Adriana Cárdenas Jr, DO Attending Provider Active Bambi Browning C4 PLANNER-C Primary Care Provider Active Team Status: Inactive Member Role Status Dates Bambi Browning C4 PLANNER-C Primary Care Provider Active Adriana Cárdenas Jr, DO Attending Provider Active Team Status: Inactive Member Role Status Dates Cesar Estrada MD Attending Provider Active Bambi Browning C4 PLANNER-C Primary Care Provider Active Team Status: Inactive Member Role Status Dates Bambi Browning C4 PLANNER-C Primary Care Provider Active Cesar Estrada MD [...] October 01, 2023 End: October 01, 2023 Steam Pipe Fitter Relationship Specialty Start Date End Date Mile Sanchez MD [address] [place] [phone] PCP - General Family Medicine 11/26/22 Steam Pipe Fitter Relationship Specialty Start Date End Date Mile Sanchez MD [address] [place] [address] PCP - General Family Medicine 11/26/22 Steam Pipe Fitter Relationship Specialty Start Date End Date Mile Sanchez MD [address] [place] [address] PCP - General Family Medicine 11/26/22 Steam Pipe Fitter Relationship Specialty Start Date End Date Mile Sanchez MD [address] [place] [address] PCP - General Family Medicine 11/26/22 Steam Pipe Fitter Relationship Specialty Start Date End Date Mile Sanchez MD [address] [place] [address] PCP - General Family Medicine 11/26/22 Steam Pipe Fitter Relationship Specialty Start Date End Date Mile Sanchez MD [address] [place] [address] PCP - General Family Medicine 11/26/22 Steam Pipe Fitter Relationship Specialty Start Date End Date Mile Sanchez MD [address] [place] [address] PCP - General Family Medicine 11/26/22 Steam Pipe Fitter Relationship Specialty Start Date End Date Mile Sanchez MD [address] [place] [address] PCP - General Family Medicine 11/26/22 Steam Pipe Fitter Relationship Specialty Start Date End Date Mile Sanchez MD [address] [place] [address] PCP - General Family Medicine 11/26/22 Steam Pipe Fitter Relationship Specialty Start Date End Date Mile Sanchez MD [address] [place] [address] PCP - General Family Medicine 11/26/22 Steam Pipe Fitter Relationship Specialty Start Date End Date Mile Sanchez MD [address] [place] [address] PCP - General Family Medicine 11/26/22 Team Status: Inactive Member Role Status Dates Cesar Estrada MD Attending Provider Active S tart: August 15, 2024 End: August 15, 2024 Mile Sanchez MD Primary Care Provider Active Start: August 15, 2024 End: August 15, 2024 Steam Pipe Fitter Relationship Specialty Start Date End Date Mile Sanchez MD [address] [place] [address] PCP - General Family Medicine 11/26/22 Steam Pipe Fitter Relationship Specialty Start Date End Date Mile Sanchez MD [address] [place] [address] PCP - General Family Medicine 11/26/22 Steam Pipe Fitter Relationship Specialty Start Date End Date Mile Sanchez MD [address] [place] [address] PCP - General Family Medicine 11/26/22 Steam Pipe Fitter Relationship Specialty Start Date End Date Mile Sanchez MD [address] [place] [address] PCP - General Family Medicine 11/26/22 Team Status: Inactive Member Role Status Dates Mile Sanchez MD Primary Care Provider Active Start: September 07, 2024 End: September 07, 2024 PONCHO Campos-C Attending Provider Active S tart: September 07, 2024 End: September 07, 2024 Cesar Estrada MD Other Provider Active Start : September 07, 2024 End: September 07, 2024 Steam Pipe Fitter Relationship Specialty Start Date End Date Mile Sanchez MD [address] [place] [address] PCP - General Family Medicine 11/26/22 Steam Pipe Fitter Relationship Specialty Start Date End Date Mile Sanchez MD [address] [place] [address] PCP - General Family Medicine 11/26/22 Steam Pipe Fitter Relationship Specialty Start Date End Date Mile Sanchez MD [address] [place] [address] PCP - General Family Medicine 11/26/22 Team Status: Inactive Member Role Status Dates Flores Brito APRN Attending Provider Active Start: February 07, 2025 End: February 07, 2025 Bambi Browning , C4 PLANNER-C Primary Care Provider Active Start: February 07, 2025 End: February 07, 2025 Goals (unrecognized section and content) Goals may be documented in a n alternate section INFORMATION SOURCE (unrecogn ized section and content) DATE CREATED AUTHOR 08/21/2022 [facility] DATE CREATED AUTHOR AUTHOR'S ORGANIZ ATION 01/27/2024 [facility] DATE CREATED AUTHOR AUTHOR'S ORGANIZ ATION 05/20/2024 [facility] DATE CREATED AUTHOR AUTHOR'S ORGANIZ ATION 06/01/2024 [facility] DATE CREATED AUTHOR AUTHOR'S ORGANIZ ATION 06/04/2024 [facility] DATE CREATED AUTHOR AUTHOR'S ORGANIZ ATION 10/04/2024 [facility] DATE CREATED AUTHOR AUTHOR'S ORGANSARANYA ATION 12/03/2024 [facility] EPIC DATE CREATED AUTHOR AUTHOR'S ORGANIZ ATION 02/26/2025 [facility] FOR RECORDS PERTAINING TO PATIENTS WHO ARE [...] BE BASED ON THE PRIMARY CLINICAL RECORDS. [employer] provides no warranty or guarantee of the accuracy or completeness of information in this document.
--- NOTE | 2025-02-27 11:20 | US_ITS ---
The [address] [address] Patient Name: LIBERTY BRYANT MRN: [id number] date: 1950 Sex: F Assigned Patient Location: US Current Patient Location: [place] Accession/Order Number: [id number] Exam Date: 02/27/2025 11:21 Report Date: 02/27/2025 12:02 At the request of: BERTHA BLAND MD Procedure: US renal BI BILATERAL RENAL AND BLADDER ULTRASOUND CLINICAL HISTORY: History of kidney stones COMPARISON: 02/02/2024 Estimation of renal size is approximately 10.4 cm on the right and 10.7 cm on the left. An echogenic focus with twinkle artifact is again seen at the superior pole of the left kidney measuring approximately 9 mm in size. A stone is possible. There is also still a second potential smaller stone at the inferior pole on that side measuring 5 mm. No hydronephrosis is seen. No renal mass lesions were imaged. There is no perinephric fluid. The urinary bladder is partially distended with a volume of 313 mL. No contour or intraluminal abnormalities are seen. US/US renal BI IMPRESSION: POSSIBLE LEFT NEPHROLITHIASIS. NO OBSTRUCTIVE UROPATHY. Impression dictated by: Deya Anguiano M.D. 02/27/2025 12:02 PM Dictation Location: [place] [address] Electronically authenticated by: [id number] Y Date: 02/27/2025 12:02
== END 2025-02-27 11:09 | disposition home or self-care (01) ==
PROVIDERS: PCP Nurse Practitioner; Visit Provider Urology
DX: N20.0 Calculus of kidney (principal)
CPT/HCPCS: 76775

== ENCOUNTER 2025-03-06 12:32 | Outpatient (OUT) | payer MEDICARE, BC, SELFPAY ==
--- OUTSIDE RECORDS SUMMARY | 2025-03-06 12:35 | XMS_ITS | Encounter Summary ---
Author Organization [facility] Address [address] [place] [address] Care Team Providers Care Sheet Metal Erector Name Role Phone Marc Leggett MD Primary Care Provider [phone] Encounter Details Date Type Department Care Team (Late st Contact Info) Description 12/11/2022 External Result Encounter [facility] External Department Unsolicited Jr. Jorge Cárdenas, DO [address] [facility] [address] [place] [address] Social History Tobacco Use Types Packs/Day Years [...] [address] [place] [address] Timothy Bernstein PA [address] [place] [address] 11/30/2025 11:00 AM EDT Office Visit [facility] [place] [facility] [address] [place] [address] Elma Chávez MD [address] [place] [address] documented as of this encounter Procedures Procedure Name Priority Date/Time Associated Diagnosis Comments XR KNEE 1-2 VIEWS RIGHT 12/11/2022 11:35 AM EDT documented in this encounter Results * XR knee 1 or 2 views right (12/11/2022 11:35 AM EDT) Anatomical Region Laterality Modality Lower Extremities, Knee Right [facility] Imaging 12/11/2022 11:3 5 AM EDT Impressions 12/12/2022 10:25 AM EDT No acute findings Impression dictated by: Lloyd Schuler M.D.12/11/2022 11:40 AM Dictation Location: [place] [address] Transcribed By: [facility] 12/11/22 1140 Dictated By: Lloyd Schuler DO 12/11/22 1135 Signed By: <Electronically signed by Lloyd Schuler DO in OV> 12/11/22 1140 Narrative 12/12/2022 10:25 AM EDT [facility] Main [address] [address] XRay Report Signed Patient: Gia Ruiz MR#: [id number] : 1950 Acct:[id number] Age/Sex: 72 / F ADM Date: 12/11/22 Loc: [place] Room: Type: [facility] Attending Dr: Jorge Cárdenas Jr, DO Copies [...] 2V Procedure Note Radiology, Radiologist, - 12/12/2022 [facility] Main [place] [address] [place] [address] XRay Report Signed Patient: Gia Ruiz LMR#: [id number] : 1950cct:[id number] Age/Sex: 72 / FADM Date: 12/11/22 Loc: [place] Room:Type: [facility] Attending Dr: Jorge Cárdenas Jr DO Copies [...] Lloyd Schuler M.D.12/11/2022 11:40 AM Dictation Location: [place] [address] Transcribed By: [facility] 12/11/22 1140 Dictated By: Lloyd Schuler DO 12/11/22 1135 Signed By: <Electronically signed by Lloyd Schuler DO in OV> 12/11/22 1140 Jr. Jorge Cárdenas DO IMG XR PROCEDURES Final Result documented in this encounter Visit Diagnoses Not on filedocumented in this encounter Care Teams Sheet Metal Erector Relationship Specialty Start Date End Date Marc Leggett MD PCP - General Family Medicine 11/26/22 documented as of this encounter
--- OUTSIDE RECORDS SUMMARY | 2025-03-06 12:35 | XMS_ITS | Encounter Summary ---
Author Organization [facility] Address [address] [place] [address] Care Team Providers Care Stripe Matcher Name Role Phone Marc Leggett MD Primary Care Provider [phone] Encounter Details Date Type Department Care Team (Late st Contact Info) Description 11/27/2022 External Result Encounter [facility] External Department Unsolicited Jr. Jorge Cárdenas, DO [address] [facility] [address] [place] [address] Social History Tobacco Use Types Packs/Day Years [...] [address] [place] [address] Timothy Bernstein PA [address] [place] [address] 11/30/2025 11:00 AM EDT Office Visit [facility] [place] [facility] [address] [place] [address] Elma Chávez MD [address] [place] [address] documented as of this encounter [...] Deya Anguiano M.D.11/27/2022 4:38 PM Dictation Location: [place] [address] Transcribed By: [facility] 11/27/228 Dictated By: Deya Anguiano MD 11/27/221631 Signed By: <Electronically signed by MD Deya Anguiano in OV> 11/27/22 1638 Narrative 11/28/2022 10:02 AM EDT [facility] Main [place] [address] [place] [address] XRay Report Signed Patient: iGa Ruiz MR#: [id number] : 1950 Acct:[id number] Age/Sex: 72 / F ADM Date: 11/27/22 Loc: [facility] Room: Type[facility] Attending Dr: Jorge Cárdenas Jr DO Copies to: Jorge Cárdenas Jr, DO Ordering Provider: Jorge Cárdenas Jr, DO Date of Service: 11/27/22 XR/XR tibia/fibula BI: PRE OP TOTAL TKA ([id number]) XR/XR femur BI: PRE OP TKA CLINICAL [...] Procedure Note Radiology, Radiologist, MD - 11/28/2022 [facility] Main [address] [address] XRay Report Signed Patient: Gia Ruiz LMR#: [id number] : 1950cct:[id number] Age/Sex: 72 / FADM Date: 11/27/22 Loc: [facility] Room:Type: [facility] Attending Dr: Jorge Cárdenas Jr DO Copies to: Jorge Cárdenas Jr, DO Ordering Provider: Jorge Cárdenas Jr, DO Date of Service: 11/27/22 XR/XR tibia/fibula BI: PRE OP TOTAL TKA ([id number]) XR/XR femur BI: PRE OP TKA CLINICAL [...] Deya Anguiano M.D.11/27/2022 4:38 PM Dictation Location: [place] [address] Transcribed By: [facility] 11/27/22 1638 Dictated By: Deya Anguiano MD 11/27/22 1632 Signed By: <Electronically signed by MD Deya Anguiano in OV> 11/27/22 1638 Jr. Jorge Cárdenas DO IMG XR PROCEDURES Final Result documented in this encounter Visit Diagnoses Not on filedocumented in this encounter Care Teams Stripe Matcher Relationship Specialty Start Date End Date Marc Leggett MD PCP - General Family Medicine 11/26/22 documented as of this encounter
--- OUTSIDE RECORDS SUMMARY | 2025-03-06 12:36 | XMS_ITS | Encounter Summary ---
Author Organization [facility] Address [address] [place] [address] Care Team Providers Care Site Superintendent Name Role Phone Marc Leggett MD Primary Care Provider [phone] Reason for Visit * Reason Comments Med Change Request Encounter Details Date Type Department Care Team (Late st Contact Info) Description 10/23/2023 Refill [facility] [address] [place] [address] Timothy Bernstein PA [address] [place] [address] Pre-op examination; Post-operative pain Social [...] Patient given NORCO on 10/27/23 Pharm: [facility] * Telephone Encounter - PONCHO Ulloa - [...] Orthopaedics [address] [place] [address] Timothy Bernstein PA [address] [place] [address] 11/30/2025 11:00 AM EDT Office Visit [facility] [place] [facility] [address] [place] [address] Elma Chávez MD [address] [place] [address] documented as of this encounter Visit Diagnoses Diagnosis Pre-op examination Post-operative pain Other acute postoperative pain documented in this encounter Care Teams Site Superintendent Relationship Specialty Start Date End Date Marc Leggett MD PCP - General Family Medicine 11/26/22 documented as of this encounter
--- OUTSIDE RECORDS SUMMARY | 2025-03-06 12:36 | XMS_ITS | Encounter Summary ---
Author Organization [facility] Address [address] [place] [address] Care Team Providers Care Donor Floor Technician Name Role Phone Marc Leggett MD Primary Care Provider [phone] Encounter Details Date Type Department Care Team (Latest Contact Info) Description 09/08/2024 Results Follow-Up [facility] [address] [place] [address] Timothy Bernstein, PA [address] [place] [address] Hemoglobin a1c with eag Social [...] Orthopaedics [address] [place] [address] Timothy Bernstein PA [address] [place] [address] 11/30/2025 11:00 AM EDT Office Visit [facility] [place] [facility] [address] [place] [address] Elma Chávez MD [address] [place] [address] documented as of this encounter Visit Diagnoses Not on filedocumented in this encounter Care Teams Donor Floor Technician Relationship Specialty Start Date End Date Marc Leggett MD PCP - General Family Medicine 11/26/22 documented as of this encounter
--- OUTSIDE RECORDS SUMMARY | 2025-03-06 12:36 | XMS_ITS | Encounter Summary ---
Author Organization [facility] Address [address] [facility] [place] [address] Care Team Providers Care Motor Vehicle Operator Road Supervisor Name Role Phone Marc Leggett MD Primary Care Provider [phone] Encounter Details Date Type Department Care Team (Late st Contact Info) Description 11/01/2023 [facility]phone [facility] [place] [facility] [address] [facility] [address] [place] [address] Rhea Pang, PT [address] [facility] [address] [place] [address] Social History Tobacco Use Types Packs/Day Years [...] [address] [place] [address] Timothy Bernstein, PA [address] [place] [address] 11/30/2025 11:00 AM EDT [facility] [address] [place] [address] Elma Chávez MD [address] [place] [address] documented as of this encounter Visit Diagnoses Not on filedocumented in this encounter Care Teams Motor Vehicle Operator Road Supervisor Relationship Specialty Start Date End Date Marc Leggett MD PCP - General Family Medicine 11/26/22 documented as of this encounter
--- OUTSIDE RECORDS SUMMARY | 2025-03-06 12:36 | XMS_ITS | Encounter Summary ---
Author Organization [facility] Address [address] [place] [address] Care Team Providers Care Equipment Services Associate Name Role Phone Marc Leggett MD Primary Care Provider [phone] Encounter Details Date Type Department Care Team (Late st Contact Info) Description 11/24/2022 External Result Encounter [facility] External Department Unsolicited Jr. Jorge Cárdenas, DO [address] [facility] [address] [place] [address] Social History Tobacco Use Types Packs/Day Years [...] Orthopaedics [address] [place] [address] Timothy Bernstein PA [address] [place] [address] 11/30/2025 11:00 AM EDT Office Visit [facility] [address] [place] [address] Elma Chávez MD [address] [place] [address] documented as of this encounter Procedures Procedure Name Priority Date/Time Associated Diagnosis Comments ECG 12-LEAD 11/24/2022 9:26 AM EDT documented in this encounter Results * ECG 12 lead (11/24/2022 9:26 AM EDT) 11/24/2022 9:26 AM EDT [facility] - 11/25/2022 12:19 PM EDT [facility] Main [address] [address] Electrocardiograph Report Signed Patient: Gia Ruiz MR#: [id number] : 1950 Acct:[id number] Age/Sex: 72 / F ADM Date: 11/24/22 Loc: Room: Type: [facility] Attending Dr: Jorge Cárdenas Jr, DO [...] Procedure Note Nuha Hoffman MD - 11/25/2022 [facility] Main [place] [address] [place] [address] Electrocardiograph Report Signed Patient: Gia Ruiz LMR#: [id number] : 1950cct:[id number] Age/Sex: 72 / FADM Date: 11/24/22 Loc: PS Room:Type: [facility] Attending Dr: Jorge Cárdenas Jr, DO [...] Cárdenas DO ECG ORDERABLES Final R esult [facility] [address] [place] [address], documented in this encounter Visit Diagnoses Not on filedocumented in this encounter Care Teams Equipment Services Associate Relationship Specialty Start Date End Date Marc Leggett MD PCP - General Family Medicine 11/26/22 documented as of this encounter
--- OUTSIDE RECORDS SUMMARY | 2025-03-06 12:36 | XMS_ITS | Encounter Summary ---
Author Organization [facility] Address [address] [place] [address] Care Team Providers Care Freelance Data Entry Name Role Phone Marc Leggett MD Primary Care Provider [phone] Encounter Details Date Type Department Care Team (Late st Contact Info) Description 09/07/2024 Results Follow-Up [facility] [address] [place] [address] Timothy Bernstein, PA [address] [facility] [place] [address] ECG 12 lead Social History [...] Orthopaedics [address] [place] [address] Timothy Bernstein PA [address] [place] [address] 11/30/2025 11:00 AM EDT Office Visit [facility] [address] [place] [address] Elma Chávez MD [address] [place] [address] documented as of this encounter Visit Diagnoses Not on filedocumented in this encounter Care Teams Freelance Data Entry Relationship Specialty Start Date End Date Marc Leggett MD PCP - General Family Medicine 11/26/22 documented as of this encounter
--- OUTSIDE RECORDS SUMMARY | 2025-03-06 12:36 | XMS_ITS | Clinical Summary ---
Author Organization [facility] Address [address] [place] [address] Care Team Providers Care Graduate Nurse Name Role Phone Mile Sanchez MD Primary Care Provider [phone] Allergies Active Allergy Reactions Criticality Noted Date Comments Oxycodone-Acetaminophen Hallucinations 11/27/19 23 Sulfamethoxazole-Trimethoprim Rash Medium 2022 Medications atorvastatin (Lipitor) 20 MG tablet 3 Active levothyroxine (Synthroid, Levoxyl) 125 MCG tablet Active losartan-hydroCHLO ROthiazide (Hyzaar) 100-25 MG tablet Take by mouth 3 Active adalimumab (Humira) 40 MG/0.8ML Prefilled Syringe Kit prefilled syringe 3 Active omeprazole (PriLOSEC) [address] capsule 3 Active metFORMIN (Glucophage) 500 MG tablet Active liothyronine (Cytomel) 5 MCG tablet 1 (one) time each day at the same time 3 Active aspirin 81 MG EC tablet Take 1 tablet by mouth Daily 3 Active calcium carbonate EX (Tums Extra Strength) 750 MG chewable tablet Chew 300 mg Ac tive magnesium gluconate (Magonate) 500 MG tablet Take by mouth 3 Active Goodyear-3 Fatty Acids (Fish Oil) 1200 MG capsule delayed-release Take by mouth 3 Active Multiple Vitamin (Multi Vitamin) tablet 1 (one) time each day at the same time Active Methylcobalamin (Methyl B-12) 500 MCG chewable tablet 3 Active Bacillus Coagulans-Inulin (PROBIOTIC-PREBIOT IC PO) Active coenzyme Q-10 100 MG ER capsule Active acetaminophen (Tylenol 8 Hour) 650 MG ER tablet Take by mouth 3 Active Zinc Sulfate (ZINC 15 PO) Active ascorbic acid (Vitamin C) 250 MG chewable tablet Acti ve Melatonin 5 MG chewable tablet Acti ve Cranberry 500 MG chewable tablet Chew Acti ve ondansetron (Zofran) 8 MG tablet Take 8 mg by mouth every 8 (eight) hours if needed for nausea 4 Active cholecalciferol (Vitamin D-3) 1.25 MG (21524 UT) capsule Take 50,000 Units by mouth [...] 2 BEFORE BEDTIME NEEDED 270 tablet 2 5 Active pregabalin (Lyrica) 50 MG capsuleIndications :Cerebrovascular accident (CVA), unspecified mechanism (HCC),Spasticity,L umbosacral radiculopathy,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 She initially presented with left sided [...] 11/26/2022 Hypothyroidism 11/26/2022 Incomplete bladder emptying 11/26/2022 JOES RAMON (obstructive sleep apnea) 11/26/2022 Osteoarthritis of [...] Department Care Team Description 01/11/2025 Telephone [facility] [address] [place] [address] Jr. Jorge Cárdenas, DENTAL APPT from Last 3 Months Immunizations Immunization Administration Dates Next Due DTP 01/24/2021 Influenza, High Dose Seasona l, Preservative Free 04/28/2024,04/30/2019 Influenza, High-dose Seasona l, Quadrivalent, Preservative Free 04/21/2022 Influenza, Seasonal, Quadriv alent, Adjuvanted 03/15/2021 Influenza, Unspecified 04/21/2022,03/15/2021, Influenza, injectable, quadrivalent 02/16/2020 Moderna Bivalent Booster Vaccination 04/21/2022 Moderna SARS-CoV-2 50mcg/0.5mL Booster 12/05/202 2 Pneumococcal Conjugate PCV 20 04/28/2024 Zoster, Recombinant 07/01/2019,04/30/2019 Family History Medical History Relation Name Comments Heart failure Brother 1 Karthik Chavez Cancer Brother 2 Augustus Holcombehl Heart failure Brother 3 Chandrakant Chavez Hypertension Brother 3 Chandrakant Chavez Heart failure Brother 4 Zack Chavez Alzheimer's disease Father Tex Scott Diabetes Father Tex Holcombehl Hypertension Father Tex Chavez parkinsons Father Tex Holcombehl Heart disease Maternal Grandfather Cancer Maternal Grandmother [...] Relation Name Status Comments Brother 1 Karthik Chavez 4 brothers Brother 2 Augustus Scott Brother 3 Chandrakant Holcombehl Brother 4 Zack Chavez Daughter 3 daughters Father Tex Chavez Maternal Grandfather Maternal Grandmother Syed Osborne Mother Rosa Maria Scott Mother's Sister 1 Lora Dagg Mother's Sister 2 Teri Dieog Sibling Sister 3 sisters Social History Tobacco [...] Orthopaedics [address] [place] [address] Timothy Bernstein PA [address] [place] [address] 11/30/2025 11:00 AM EDT Office Visit [facility] [address] [place] [address] Elma Chávez MD [address] [place] [address] Health Maintenance Due Date Last [...] PM EDT Narrative 08/29/2024 3:58 [place] [address] Mammography Report Signed Patient: GIA RUIZ MR#: [id number] : 1950 Acct:[id number] Age/Sex: 74 / F ADM Date: 08/29/24 Loc: MAMMO Attending Dr: Robert Ferreira D.O. Ordering Physician: Robert Ferreira D.O. Results: Date of Service: 08/29/24 Follow Up: Procedure(s): MM tomosynthesis screening BI Accession Number(s): [id number] cc: Robert Ferreira D.O.; MILE SANCHEZ Patient Name: GIA RUIZ MR#: [id number] : 1950 Exam Date: 08/29/2024 Ordering Doctor: [...] prostate cancer at age 71. LOCATION: [facility] BREAST COMPOSITION: The breasts are almost [...] on 08/29/2024 at 15:56 Approved by: Hector Avery, DO on 08/29/2024 at 15:57 Dictated By: Hector Avery M.D. Signed By: 08/29/24 1558 DD/ 1557 TD/TT: Security System Sales Consultant: Procedure Note Radiology, Radiologist, - 08/29/2024 [place] [address] Mammography Report Signed Patient: GIA RUIZ LMR#: [id number] : 1950cct:[id number] Age/Sex: 74 / FADM Date: 08/29/24 Loc: MAMMO Attending Dr: Robert Ferreira D.O. Ordering Physician: Robert Ferreira D.O.Results: Date of Service: 08/29/24Follow Up: Procedure(s): MM tomosynthesis screening BI Accession Number(s): [id number] cc: Robert Ferreira D.O.; MILE SANCHEZ Patient Name: GIA RUIZ MR#: [id number] : 1950 Exam Date: 08/29/2024 Ordering Doctor: DR Robert Ferreira . RADIOLOGY REPORT PROCEDURE: MM TOMOSYNTHESIS SCREENING BI COMPARISON: MM TOMOSYNTHESIS SCREENING BI, 08/27/2023. MG MAMM [id number] CALOS CAD, 05/16/2022. MG MAMM SCREEN 3D [...] with prostate cancer at age71. LOCATION: [facility] BREAST COMPOSITION: The breasts are almost [...] 15:57 Dictated By: Hector Avery M.D. Signed By:08/29/24 1558 DD/ 1557 TD/TT: Security System Sales Consultant: Robert Jhon DO [facility] Final Result from Last 3 Months or Most Recently Relevant to Health Maintenance Insurance MEDICARE [facility] Care Teams Graduate Nurse Relationship Specialty Start Date End Date Mile Sanchez MD PCP - General Family Medicine 11/26/22
--- OUTSIDE RECORDS SUMMARY | 2025-03-06 12:36 | XMS_ITS | Encounter Summary ---
Author Organization [facility] Address [address] [place] [address] Care Team Providers Care Loop Sewer Name Role Phone Marc Leggett MD Primary Care Provider [phone] Encounter Details Date Type Department Care Team (Late st Contact Info) Description 09/07/2024 External Result Encounter [facility] External Department Unsolicited Timothy Bernstein, PA [address] [place] [address] Social History Tobacco Use Types [...] [address] [place] [address] Timothy Bernstein PA 6[address] [facility] [address] 11/30/2025 11:00 AM EDT Office Visit [facility] [address] [place] [address] Elma Chávez MD [address] [place] [address] documented as of this encounter Procedures Procedure Name Priority Date/Time Associated Diagnosis Comments ECG 12-LEAD 09/07/2024 12:31 PM EDT documented in this encounter Results * ECG 12 lead (09/07/2024 12:31 PM EDT) 09/07/2024 12:3 1 PM EDT [facility] - 09/07/2024 4:51 PM EDT [facility] Main [address] [address] Electrocardiograph Report Signed Patient: Gia Ruiz MR#: [id number] : 1950 Acct:[id number] Age/Sex: 74 / F ADM Date: 09/07/24 Loc: Room: Type: [facility] Attending Dr: Timothy Bernstein PA-C Ordering Provider: [...] By: MUS Signed By Jose Mcfadden MD, [facility] 09/07/24 1651 Procedure Note Jose Mcfadden MD - 09/07/2024 [facility] Main [place] [id number] Electrocardiograph Report Signed Patient: Gia Ruiz LMR#: [id number] : 1950cct:[id number] Age/Sex: 74 / FADM Date: 09/07/24 Loc: Room:Type: [facility] Attending Dr: Timothy Bernstein PA-C Ordering Provider: [...] By: Electronically Signed By: JOSE MCFADDEN MD [facility] Transcribed By: MUS Signed By Jose Mcfadden MD, [facility] 09/07/24 324 us Timothy ISAAC ECG ORDERABLES Final Result [address] [address], documented in this encounter Visit Diagnoses Not on filedocumented in this encounter Care Teams Loop Sewer Relationship Specialty Start Date End Date Marc Leggett MD PCP - General Family Medicine 11/26/22 documented as of this encounter
--- OUTSIDE RECORDS SUMMARY | 2025-03-06 12:37 | XMS_ITS | Encounter Summary ---
Author Organization [facility] Address [address] [place] [address] Care Team Providers Care Executive Search Consultant Name Role Phone Marc Leggett MD Primary Care Provider [phone] Encounter Details Date Type Department Care Team (Late st Contact Info) Description 08/28/2023 Clinisync Result Encounter [facility] External Department Unsolicited Robert Ferreira, DO 102 [facility] Felisha C Joel, [facility] Social History Tobacco Use Types Packs/Day [...] [address] [place] [address] Timothy Bernstein, PONCHO 6[address] [place] [place] [address] 11/30/2025 11:00 AM EDT Office Visit [facility] [address] [place] [address] Elma Chávez MD [address] [place] [address] documented as of this encounter Procedures Procedure Name Priority Date/Time Associated Diagnosis Comments MM TOMOSYNTHESIS SCREENING BI 08/28/2023 2:08 PM EDT documented in this encounter Results * MM TOMOSYNTHESIS SCREENING BI (08/28/2023 2:08 PM EDT) Anatomical Region Laterality Modality Other 08/28/2023 2:08 PM EDT Narrative 08/28/2023 2:09 PM EDT The [address] [address] Mammography Report Signed Patient: GIA BRYANT MR#: [id number] : 1950 Acct:[id number] Age/Sex: 73 / F ADM Date: 08/27/23 Loc: MAMMO Attending Dr: Robert Ferreira D.O. Ordering Physician: Robert Ferreira D.O. Results: Date of Service: 08/27/23 Follow Up: Procedure(s): MM tomosynthesis screening BI Accession Number(s): [id number] cc: Robert Ferreira D.O.; Physician,Non-Staff MBreanna Patient Name: GIA BRYANT MR#: [id number] : 1950 Exam Date: 08/27/2023 Ordering Doctor: [...] prostate cancer at age 71. LOCATION: [facility] BREAST COMPOSITION: Almost entirely fatty. FINDINGS: [...] Signed By: 08/28/23 1409 DD/ 1408 TD/TT: Labor Relations Director: Procedure Note Radiology, Radiologist, MD - 08/28/2023 [place] [address] Mammography Report Signed Patient: GIA BRYANT LMR#: [id number] : 1950cct:[id number] Age/Sex: 73 / FADM Date: 08/27/23 Loc: MAMMO Attending Dr: Robert Ferreira D.O. Ordering Physician: Robert Ferreira D.O.Results: Date of Service: 08/27/23Follow Up: Procedure(s): MM tomosynthesis screening BI Accession Number(s): [id number] cc: Robert Ferreira D.O.; Physician,Non-Staff Keny Patient Name: GIA BRYANT MR#: [id number] : 1950 Exam Date: 08/27/2023 Ordering Doctor: [...] with prostate cancer at age71. LOCATION: [facility] BREAST COMPOSITION: Almost entirely fatty. FINDINGS: [...] M.D. Signed By:08/28/23 1409 DD/ 1408 TD/TT: Labor Relations Director: us Robert Ferreira DO [facility] Final Result documented in this encounter Visit Diagnoses Not on filedocumented in this encounter Care Teams Executive Search Consultant Relationship Specialty Start Date End Date Marc Leggett MD PCP - General Family Medicine 11/26/22 documented as of this encounter
--- OUTSIDE RECORDS SUMMARY | 2025-03-06 12:37 | XMS_ITS | Encounter Summary ---
Author Organization [facility] Address [address] [place] [address] Care Team Providers Care Development And Planning Engineer Name Role Phone Marc Leggett MD Primary Care Provider [phone] Encounter Details Date Type Department Care Team (Late st Contact Info) Description 08/27/2023 Clinisync Result Encounter [facility] External Department Unsolicited Dav Ferreira, DO 102 [facility] Felisha C Joel, [facility]11 Social History Tobacco Use Types Packs/Day Years [...] [address] [place] [address] Timothy Bernstein, PONCHO [address] [facility] [place] [address] 11/30/2025 11:00 AM EDT Office Visit [facility] [address] [place] [address] Elma Chávez MD [address] [place] [address] documented as of this encounter Procedures Procedure Name Priority Date/Time Associated Diagnosis Comments XR DEXA AXIAL SKELETON 08/27/2023 3:12 PM EDT documented in this encounter Results * XR DEXA AXIAL SKELETON (08/27/2023 3:12 PM EDT) Anatomical Region Laterality Modality Other 08/27/2023 3:12 PM EDT Narrative 08/27/2023 3:15 [place] [address] XRay Report Signed Patient: GIA BRYANT MR#: [id number] : 1950 Acct:[id number] Age/Sex: 73 / F ADM Date: 08/27/23 Loc: MAMMO Attending Dr: Dav Ferreira D.O. Ordering Physician: Dav Ferreira D.O. Date of Service: 08/27/23 Procedure(s): XR DEXA axial skeleton Accession Number(s): [id number] cc: Dav Ferreira D.O.; Physician,Non-Staff Keny The [address] [address] Patient Name: GIA BRYANT MRN: [id number] date: 1950 Sex: F Assigned Patient Location: MAMMO Current Patient Location: [facility] Accession/Order Number: [id number] Exam Date: 08/27/2023 14:30 Report Date: 08/27/2023 [...] Signed By: 08/27/23 1515 DD/ 1512 TD/TT: Real Estate Firm Manager: Procedure Note Radiology, Radiologist, MD - 08/27/2023 [place] [address] XRay Report Signed Patient: GIA BRYANT R#: [id number] : 1950cct:[id number] Age/Sex: 73 / FADM Date: 08/27/23 Loc: MAMMO Attending Dr: Dav Ferreira D.O. Ordering Physician: Dav Ferreira D.O. Date of Service: 08/27/23 Procedure(s): XR DEXA axial skeleton Accession Number(s): [id number] cc: Dav Ferreria D.O.; Physician,Non-Staff Keny The [place] [address] Patient Name: GIA BRYANT MRN: [facility]:[id number] date: 1950 Sex: F Assigned Patient Location: [facility] Current Patient Location: [facility] Accession/Order Number: [id number] Exam Date: 08/27/2023 14:30 Report Date: 08/27/2023 [...] M.D. Signed By:08/27/23 1515 DD/ 11 TD/TT: Real Estate Firm Manager: us Dav Ferreira DO [facility] Final Result documented in this encounter Visit Diagnoses Not on filedocumented in this encounter Care Teams Development And Planning Engineer Relationship Specialty Start Date End Date Marc Leggett MD PCP - General Family Medicine 11/26/22 documented as of this encounter
--- OUTSIDE RECORDS SUMMARY | 2025-03-06 12:37 | XMS_ITS | Encounter Summary ---
Author Organization [facility] Address [address] [place] [address] Care Team Providers Care Assistant Principal Name Role Phone Marc Leggett MD Primary Care Provider [phone] Encounter Details Date Type Department Care Team (Late st Contact Info) Description 09/01/2024 Orders Only [facility] [place] [facility] [address] [place] [address] Ambreen Vidales LPN [address] [place] [id number] Social History Tobacco Use Types Packs/Day Years [...] Orthopaedics [address] [place] [address] Timothy Bernstein PA [address] [place] [address] 11/30/2025 11:00 AM EDT Office Visit [facility] [address] [place] [address] Elma Chávez MD [address] [place] [address] documented as of this encounter [...] on filedocumented in this encounter Care Teams Assistant Principal Relationship Specialty Start Date End Date Marc Leggett MD PCP - General Family Medicine 11/26/22 documented as of this encounter
--- OUTSIDE RECORDS SUMMARY | 2025-03-06 12:37 | XMS_ITS | Encounter Summary ---
Author Organization [facility] Address [address] [facility] [place] [address] Care Team Providers Care Innovation Manager Name Role Phone Marc Leggett MD Primary Care Provider [phone] Encounter Details Date Type Department Care Team (Late st Contact Info) Description 09/30/2023 External Result Encounter [facility] External Department Unsolicited Timothy Bernstein, PA [address] [place] [address] Social History Tobacco Use Types [...] [address] [place] [address] Timothy Bernstein PA 629 [facility] [place] [address] 11/30/2025 11:00 AM EDT Office Visit [facility] [address] [place] [address] Elma Chávez MD [address] [place] [address] documented as of this encounter [...] Avery Jr., D.OCarmen09/30/2023 3:53 PM Dictation Location: [place] [address] Transcribed By: [facility] 09/30/23 1553 Dictated By: Hector Avery Jr, DO 09/30/23 1552 Signed By: <Electronically signed by Hector Avery Jr, DO in OV> 09/30/23 1553 Narrative 09/30/2023 3:55 PM EDT [facility] Main [place] [address] [place] [address] XRay Report Signed Patient: Gia Ruiz MR#: [id number] : 1950 Acct:[id number] Age/Sex: 73 / F ADM Date: 09/30/23 Loc: [facility]: Timothy Bernstein PA-C Copies to: Timothy Bernstein PA-C Ordering Provider: Timothy Bernstein PA-C Date of Service: 09/30/23 XR/XR chest 2V*: Z01.818 Chest 2 views CLINICAL HISTORY: Preop left TKA COMPARISON: None FINDINGS: Heart appears normal in size. Evidence old granulomatous disease. No consolidation pneumothorax pleural effusion or free air. XR/XR chest 2V* Procedure Note Radiology, Radiologist, MD - 09/30/2023 [facility] Main [place] [address] [place] [address] XRay Report Signed Patient: Gia Ruiz LMR#: [id number] : 1950cct:[id number] Age/Sex: 73 / FADM Date: 09/30/23 Loc: Room:Type: [facility] Attending Dr: Timothy Bernstein PA-C Copies to: [...] Avery Jr., DCarmenOCarmen09/30/2023 3:53 PM Dictation Location: [place] [address] Transcribed By: [facility] 09/30/23 155 Dictated By: Hector Avery Jr, DO 09/30/23 155 Signed By: <Electronically signed by Hector Avery Jr, DO inOV> 09/30/23 155 us Timothy LAIRD XR PROCEDURES Final Resul t documented in this encounter Visit Diagnoses Not on filedocumented in this encounter Care Teams Innovation Manager Relationship Specialty Start Date End Date Marc Leggett MD PCP - General Family Medicine 11/26/22 documented as of this encounter
--- OUTSIDE RECORDS SUMMARY | 2025-03-06 12:37 | XMS_ITS | CCD ---
Author Organization [facility] Care Team Providers Care Supervisor Weaving Name Role Phone Dominick Hester Unavailable MD [...] ., DR ESTEFANÍA [facility] Primary [facility] Unavailable ELMIRA, DR DOMINICK Cheng Consulting Unavailable JHON ., [...] Consulting Unavailable Bambi Browning Primary Care Physician DO Adriana Cárdenas Jr Attending Provider Nam, GINA [place] Primary Care Provider [phone] MD Cesar Estrada Attending Provider GINA Browning Primary Care Provider MD Cesar Estrada Attending Provider [phone] GINA Browning Primary Care Provider [phone] GINA Browning Primary Care Provider MD Cesar Estrada Attending Provider MD Mile Sanchez Primary Care Provider HARITHA Bernstein Attending Provider Mile Sanchez MD Primary Care Provider Bertha BLAND Attending Unavailable Bambi Browning Attending Unavailable Bambi Browning Attending Unavailable Bambi Browning Attending Unavailable NamBambi waddell Attending Unavailable MICAH GOTTLIEB Attending Unavailable Bertha BLAND Attending Unavailable Nam, Bambi Cruz Admitting Unavailable Nam, Bambi Cruz Attending Unavailable Nam, Bambi Cruz Attending Unavailable Nam, Bambi Cruz Admitting Unavailable Oleksandr MOSLEY, Mile Lima Primary Care Provider [phone] Amandeep MG, Rosalinda Attending Provider [phone] Cesar Estrada MD Other Provider Cesar Estrada [...] BERNSTEIN Attending Unavailable ROSALINDA BERNSTEIN Referring Unavailable PETKATREYNA DURAN Attending Unavailable SAGE JO Attending Unavailable [...] Attending Provider Bambi Gómez Primary Care Provider [phone] Nam, DYE REEL OPERATOR Bambi L Attending Unavailable Nam, DYE REEL OPERATOR Bambi Cruz Attending Unavailable Nam, DYE REEL OPERATOR Bambi Cruz Attending Unavailable Bertha BLAND Attending Unavailable Nma, DYE REEL OPERATOR Bambi L Admitting Unavailable Nam, DYE REEL OPERATOR Bambi L Attending Unavailable Nam, DYE REEL OPERATOR Bambi Cruz Attending Unavailable Allergies Allergy Classification Reported Allergen(s) Allergy Type Date of Onset Reaction(s) Facility (13 sources) Adhesive agent; Translations: [adhesive] Allergy to substance 02-07-20 [facility] (20 sources) Sulfamethoxazole / Trimethoprim; Translations: [sulfamethoxazole-t rimethoprim] Drug Allergy 11-27-19 Eruption of skin (disorder), Rash [facility] (11 sources) Sulfonamides (Antibiotic); Translations: [Sulfa (Sulfonamide Antibiotics)] Allergy to substance 11-25-19 Rash [facility] (9 sources) Acetaminophen; Translations: [acetaminophen] Drug Allergy 03-12-20 Hallucinating [facility] (9 sources) oxyCODONE; Translations: [oxycodone] Drug Allergy 03-12-20 Hallucinating [facility] (8 sources) Acetaminophen / oxyCODONE; Translations: [acetaminophen-oxyc odone] Drug Allergy Hallucinations (finding) [facility] (8 sources) Acetaminophen / HYDROcodone Drug Allergy 11-27-19 GI intolerance [facility] Work Phone: (20 sources) Acetaminophen / oxyCODONE Drug Allergy 11-27-19 Hallucinations [facility] (19 sources) Wound Dressing Adhesive Drug Allergy 08-13-19 Rash [facility] (2 sources) No Known Medication Allergies; Translations: [...] BID, # 6 cap(s), Refills(s) 0, Pharmacy: [facility]/pharmacy #[id number], 158, cm, 07/14/22 11:51:00 EST, Height/Length [...] Daily, # 90 tab(s), Refills(s) 3, Pharmacy: [facility], 158, cm, 05/16/24 13:35:00 EST, Height/Length Dosing, 87.9, kg, 05/16/24 13:35:00 EST, Weight Dosing Start Date: 08/03/24 Status: Ordered Quantity: 90.0 Unit: tab(s) Repeat number: 4 Atorvastatin [place] cium Active bacillus coagulans [id number] 0 unt / inulin 250 mg oral capsule (20 sources) Start: 11-24-2022 take 1 capsule by sc ut once daily at bedtime Bacillus Coagula [...] D3) (Vitamin D3) 5,000 unit Tablet Active 67637 UNIT PO every week July 27, 2017 12:00am cholecalciferol (Vitamin D-3) 1.25 MG (89303 UT) capsule Take 50,000 Units by mouth 1 (one) time per week 1 capsule Orally twice a month Active ciprofloxacin 500 mg oral tablet (7 sources) Quinolone Antimicrobial Start: 01-21-2024 End: 01-28-2024 take 1 tablet by mouth every twelve hours ciprofloxacin 500 mg Tab 500 mg = 1 tab(s), Oral, q12hr, X 7 day(s), # 14 tab(s), Refills(s) 0, Pharmacy: [facility]/pharmacy #[id number], 158, cm, 01/21/24 10:49:00 EDT, Height/Length Dosing, 86.1, kg, 01/21/24 10:49:00 EDT, Weight Dosing Start Date: 01/21/24 Stop Date: 01/28/24 Status: Ordered Start: 07-14-2022 Cipro 500 mg T ab 500 mg = 1 tab(s), Oral, As Directed, Patient to take 1 tab the day before procedure and the 2nd tab the day of procedure once completed., # 2 tab(s), Refills(s) 0, [id number] 158, cm, 07/14/22 11:51:00 EST, Height/Length [...] Daily, # 30 cap(s), Refills(s) 0, Pharmacy: [facility]/pharmacy #[id number], 158, cm, 12/05/22 11:44:00 EDT, Height/Length [...] tab(s), Refill(s) 3, TAKE 1 TABLET DAILY, [facility], 158, cm, 05/16/24 13:35:00 [...] DAY, # 90 tab(s), Refills(s) 3, Pharmacy: [facility], 158, cm, 08/29/24 10:18:00 EDT, Height/Length Dosing, 86.7, kg, 08/29/24 10:18:00 EDT, Weight Dosing Start Date: 12/28/24 Status: Ordered Quantity: 90.0 Unit: tab(s) Repeat number: 1 Start: 04-04-2024 take 1 tablet by vish th once daily levothyroxine 125 mcg (0.125 mg) Tab 125 mcg = 1 tab(s), Oral, Daily, # 90 tab(s), Refills(s) 1, Pharmacy: [facility], 158, cm, 03/15/24 15:36:00 EDT, Height/Length Dosing, 87.9, kg, 03/15/24 15:36:00 EDT, Weight Dosing Start Date: 04/04/24 Status: Ordered Start: 11-05-2023 take 1 tablet by vish th once daily levothyroxine 125 mcg (0.125 mg) Tab 125 mcg = 1 tab(s), Oral, Daily, # 90 tab(s), Refills(s) 1, Pharmacy: [facility], 158, cm, 10/05/23 11:25:00 EDT, Height/Length Dosing, 92.3, kg, 10/05/23 11:25:00 EDT, Weight Dosing Start Date: 11/05/23 Status: Ordered Start: 08-12-2023 take 1 tablet by vish th once daily levothyroxine 125 mcg (0.125 mg) Tab 125 mcg = 1 tab(s), Oral, Daily, # 90 tab(s), Refills(s) 0, Pharmacy: [facility], 159, cm, 05/13/23 14:24:00 EST, Height/Length Dosing, 95.1, kg, 05/13/23 14:24:00 EST, Weight Dosing Start Date: 08/12/23 Status: Ordered Start: 04-27-2023 take 1 tablet by vish th once daily levothyroxine 125 mcg (0.125 mg) Tab 125 mcg = 1 tab(s), Oral, Daily, # 90 tab(s), Refills(s) 0, Pharmacy: [facility], 158, cm, 02/13/23 9:31:00 EDT, Height/Length Dosing, 92.2, kg, 02/13/23 9:31:00 EDT, Weight Dosing Start Date: 04/27/23 Status: Ordered Start: 03-12-2023 take 1 tablet by vish once daily Start: 11-11-2022 take 1 tablet by vish th once daily levothyroxine 125 mcg (0.125 mg) Tab 125 mcg = 1 tab(s), Oral, Daily, # 90 tab(s), Refills(s) 1, Pharmacy: [facility], 158, cm, 09/18/22 10:23:00 EDT, Height/Length Dosing, 96.5, kg, 09/18/22 10:23:00 EDT, Weight Dosing Start Date: 11/11/22 Status: Ordered Start: 07-10-2022 take 1 capsule by mo [facility] once daily levothyroxine 125 mcg (0.125 mg) [...] Daily, # 90 tab(s), Refills(s) 4, Pharmacy: [facility], 158, cm, 05/16/24 13:35:00 EST, Height/Length Dosing, 87.9, kg, 05/16/24 13:35:00 EST, Weight Dosing Start Date: 06/08/24 Status: Ordered Quantity: 90.0 Unit: tab(s) Repeat number: 5 Start: 10-09-2023 take 1 tablet by vish th once daily liothyronine 5 mcg Tab 5 mcg = 1 tab(s), Oral, Daily, # 90 tab(s), Refills(s) 4, Pharmacy: [facility], 158, cm, 10/05/23 11:25:00 EDT, Height/Length Dosing, 92.3, kg, 10/05/23 11:25:00 EDT, Weight Dosing Start Date: 10/09/23 Status: Ordered Start: 07-15-2023 take 1 tablet by vish th once daily liothyronine 5 mcg Tab 5 mcg = 1 tab(s), Oral, Daily, # 90 tab(s), Refills(s) 0, Pharmacy: [facility], 159, cm, 05/13/23 14:24:00 [...] DAY, # 270 tab(s), Refills(s) 1, Pharmacy: [facility], 158, cm, 08/29/24 10:18:00 [...] (6 sources) Multivitamins as directed Orally Active Duff 5-Zbx-Qpe-Fish Oil (Fish Oil) 1,200 (144-216) mg Capsule (8 sources) Start: 03-12-2023 take 1 capsule by mouth three times daily Start: 03-12-2023 take 1 capsule by mo uth three times daily Duff 1-Jpm-Wli-Fish Oil (Fish Oil) 1,200 (144-216) mg Capsule Active 1 CAP PO Three times daily March 11, 2023 11:00pm Start: 03-12-2023 take 1 capsule by mo uth three times daily Duff 7-Wxb-Uxl-Fish Oil (Fish Oil) 1,200 (144-216) mg Capsule Active 1 CAP PO Three times daily March 12, 2023 12:00am Duff-3 Fatty Acids (Fish Oi l) 1200 MG capsule delayed-release (20 sources) Start: 07-14-2022 Duff-3 Fatty Acids (Fish Oil) 1200 MG capsule delayed-release Take by mouth 07/14/2022 Active Start: 07-14-2022 Duff-3 Fatty Acids (Fish Oil) 1200 MG capsule delayed- release Take by mouth. 07/14/2022 Active omeprazole 20 mg delayed release oral capsule (20 sources) Proton Pump Inhibitor Start: 08-30-2024 omeprazole 20 mg Cap -DR See Instructions, TAKE 1 CAPSULE DAILY, # 90 cap(s), Refills(s) 4, Pharmacy: [facility], 158, cm, 08/29/24 10:18:00 [...] for 10 day(s), 20 tab(s), Refill(s) 0, [facility]/pharmacy #[id number], 158, cm, 09/18/22 10:23:00 EDT, Height/Length [...] Start: 05-05-2022 End: 08-15-2024 Budesonide 32 mcg/actuation [place],Non-Aerosol Discontinued 2 SPRAY INTRANASAL Daily at bedtime [...] 2017 11:00pm May 05, 2022 9:48am Kan Cstoif-Ob-Ntvpubuyqusc-T ea (Apple Cider Vinegar Plus) [phone] dt-hwn-ok-mg Tablet (10 sources) Start: 11-24-2022 End: 03-12-2023 take 1 tablet by mouth once daily in the morning Kan Vwjnyi-Wk-Buryvovorzca-Tea (Apple Cider Vinegar Plus) [phone] ji-ovp-ng-mg Tablet Discontinued 1 TAB PO Every morning November 23, 2022 11:00pm March 12, 2023 7:22am Start: 11-24-2022 End: 03-12-2023 take 1 tablet by mouth once daily in the morning Kan Tnsqfn-Xd-Yxirdhvgvjan-Tea (Apple Ci praveena Vinegar Plus) [phone] gn-xth-xm-mg Tablet Discontinued 1 TAB PO Every morning November 24, 2022 12:00am March 12, 2023 8:22am Start: 11-24-2022 take 1 tablet by vish th once daily in the morning Kan Kujuif-Qx-Yemqpgjzhdoa-Tea (Apple Ci praveena Vinegar Plus) [phone] ls-hrf-vo-mg Tablet Active 1 TAB PO Every morning [...] 26, 2017 11:00pm May 05, 2022 9:48am Ginsengs-Tomahawk Jelly 800-200 MG (6 sources) take 2 capsules by mouth twice daily Ginsengs-Tomahawk Jelly 800-200 MG two capsules Orally twice a day Not-Taking take 2 capsules by mouth twice d aily Ginsengs-Tomahawk Jelly 800-200 MG two capsules Orally twice [...] 27, 2017 12:00am March 31, 2023 12:57pm Duff 2-Nhy-Bth-Fish Oil (Fish Oil) 1,000 mg (120 mg-180 mg) Capsule (12 sources) Start: 07-27-2017 End: 12-12-2022 take 1 tablet by mouth three times daily Duff 2-Lms-Iod-Fish Oil (Fish Oil) 1,000 mg (120 mg-180 mg) Capsule Discontinued 1 TAB PO Three times daily July 26, 2017 11:00pm December 12, 2022 2:11pm Start: 07-27-2017 End: 07-28-2023 take 1 tablet by mouth three times daily Duff 9-Wtv-Ymj-Fish Oil (Fish Oil) 1,000 mg (120 mg-180 mg) Capsule Discontinued 1 TAB PO Three times daily July 27, 2017 12:00am December 12, 2022 3:11pm Start: 07-27-2017 take 1 tablet by vish th three times daily Duff 6-Jyq-Ino-Fish Oil (Fish Oil) 1,000 mg (120 mg-180 mg) Capsule Active 1 TAB PO Three times daily July 27, 2017 12:00am Start: 07-27-2017 take 1 tablet by vish th three times daily Duff 4-Ckk-Vhg-Fish Oil (Fish Oil) 1,000 mg (120 mg-180 [...] 12-25-2022 Chronic Other aftercare (1 source) 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; Translations: [OTH [facility] CURRENT DRUG THERAPY] Onset: 01-30-2022 Episodic Other aftercare (1 source) [facility] (current) use of aspirin; 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 Normal [facility] Urology Office/Clinic Noteon 02-24-2025 Urology Office/Clinic [...] 02/18/24 - 162 02/24/25 - 136 Stable. [place] she emptied completely. 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 Normal [facility] Comment on above: Result Comment: Elec tronically Signed By: Bertha BLAND MD\.br\Date and Time Signed: 02/24/25 11:38 EDT\.br\Electronically Co-Signed By: Pat Crabtree\.br\Date and Time Co-Signed: 02/24/25 11:37 EDT No Panel Informationon 10-27 Radiology Study observation (narrative) [facility] XR Knee - left 1 or 2 [...] dislocation. Impression: [facility] 1 or 2 [...] dislocation. Impression: Unremarkable right total knee arthroplasty [facility] [employer] Hemoglobin a1c with eagon Glucose [Mass/Vol] 114 mg/dL [facility] HbA1c (Bld) [Mass fraction] 5.6 % 4.3 - 5.6 % [facility] Comment on above: Increased risk for d iabetes: 5.7 - 6.4 diabetes: >6.4 glycemic control for adults with diabetes: <7.0 [facility] A1C with Estimated Average [facility] 09-07-2024 Glucose [Mass/Vol] 114 mg/dL Normal [facility] Comment on above: Result Comment: PERF ORMED BY: [place] [address] PATHOLOGIST TRACK SERVICE PERSON YARELY LEOS M.D. Performed By: #### A 1C WT Serena, ADDONUAPLUS #### [address] HbA1c (Bld) [Mass fraction] 5.6 % Normal 4.3-5.6 [facility] Comment on above: Result Comment: Incr eased risk for diabetes: 5.7 - 6.4 diabetes: >6.4 glycemic control for adults with diabetes: <7.0 Performed By: #### A 1C WT Serena, ADDONUAPLUS #### [address] Adalimumab Tulio Ab Serialon 09-07-2024 Adalimumab Drug Level 5.6 ug/mL Normal . [facility] Comment on above: Result Comment: [...] Anti-Adalimumab Ab 44 ng/mL Normal . [facility] Comment on above: Result Comment: [...] 2015;74:513-518. 4. Bartelds GM, et al. BEATRIZ 2011;305(14):9863-3629. 5. Steenholdt C, et al. J Clin Gastroenterol 2016; 50:482-489. 6. Diane H, et al. Clin Gastroenterol Hepatol 2015; 13(3):522-530. 7. Samantha A, et al. Gastroenterol 2019;156(6):S-617. These tests were developed and their performance characteristics determined by [facility]. They have not been cleared or approved by the Food and Drug Administration. However, these electrochemiluminescence immunoassay (ECLIA) measurements of adalimumab and anti-adalimumab antibody (constituting DoseASSURE ADL) have been developed and validated in accordance with CLIA (Clinical Laboratory Improvement Amendments) and the FDA Guidance document, Assay Development and Validation for Immunogenicity Testing of Therapeutic Protein Products (2019). Performed at: [facility] [address] [place] [id number] Med Dir: Chirag Anderson MD, Phone: [phone] PERFORMED BY: [address] [place] [address] PATHOLOGIST TRACK SERVICE PERSON YARELY LEOS M.D. Performed By: #### A DALIMUMAB SER #### [facility] , Alanine aminotransferase [En zymatic activity/volume] in Serum or PlasmaOrdered By: Cesar Estrada on 09-07-2024 ALT [Catalytic activity/Vol] Alanine aminotransferase [Enzymatic activity/volume] in Serum or Plasma 7-52 [facility] Albumin [Mass/volume] in Ser um or Plasma by Bromocresol green (BCG) dye binding methoOrdered By: Cesar Estrada on 09-07-2024 Albumin BCG dye [Mass/Vol] Albumin [Mass/volume] in Serum or Plasma by Bromocresol green (BCG) dye binding metho 3.5-5.7 [facility] Alkaline phosphatase [Enzyma tic activity/volume] in Serum or PlasmaOrdered By: Cesar Estrada on 09-07-2024 ALP [Catalytic activity/Vol] Alkaline phosphatase [Enzymatic activity/volume] in Serum or Plasma 34-104 [facility] Appearance of UrineOrdered B y: Rosalinda Bernstein on 09-07-2024 Appearance (U) Urine appearance Clear [facility] Aspartate aminotransferase [ Enzymatic activity/volume] in Serum or PlasmaOrdered By: Cesar Estrada on 09-07-2024 AST [Catalytic activity/Vol] Aspartate aminotransferase [Enzymatic activity/volume] in Serum or Plasma 13-39 [facility] Bacteria [Presence] in Urine by AutomatedOrdered By: Rosalinda Bernstein on 09-07-2024 Bacteria Auto Ql (U) Bacteria [Presence] in Urine by Automated None Seen [facility] Basophils Auto (Bld) [#/Vol] Ordered By: Cesar Estrada on 09-07-2024 Basophils (Bld) [#/Vol] Automated basophil count 0.0-0.2 [facility] Basophils/100 WBC Auto (Bld) Ordered By: Cesar Estrada on 09-07-2024 Basophils/100 WBC (Bld) Automated basophil % . [facility] Bilirubin Test strip Ql (U)O rdered By: Rosalinda Bernstein on 09-07-2024 Bilirubin Ql (U) Bilirubin.total [Presence] in Urine by Test strip Negative [facility] Bilirubin.total [Mass/volume ] in Serum or PlasmaOrdered By: Cesar Estrada on 09-07-2024 Bilirubin [Mass/Vol] Bilirubin.total [Mass/volume] in Serum or Plasma 0.3-1.0 [facility] C reactive protein [Mass/vol ume] in Serum or PlasmaOrdered By: Cesar Estrada on 09-07-2024 CRP [Mass/Vol] C reactive protein [Mass/volume] in Serum or Plasma 0.0-0.5 [facility] C-Reactive Proteinon 025 CRP [Mass/Vol] mg/L Normal 0.0-0.5 [facility] Comment on above: Result Comment: PERF ORMED BY: [place] [address] PATHOLOGIST TRACK SERVICE PERSON YARELY LEOS M.D. Performed By: #### C MP, CRP, CBC #### [address] Calcium [Mass/volume] in Ser um or PlasmaOrdered By: Cesar Estrada on 09-07-2024 Calcium [Mass/Vol] Calcium [Mass/volume ] in Serum or Plasma 8.6-10.3 [facility] Carbon dioxide, total [Moles /volume] in Serum or PlasmaOrdered By: Cesar Estrada on 09-07-2024 CO2 [Moles/Vol] Carbon dioxide, tota l [Moles/volume] in Serum or Plasma 21.0-31.0 [facility] Chloride [Moles/volume] in S soni or PlasmaOrdered By: Cesar Estrada on 09-07-2024 Chloride [Moles/Vol] Chloride [Moles/volume] in Serum or Plasma Low 98-107 [facility] Color Auto (U)Ordered By: Vasyl Bernstein on 09-07-2024 Color (U) Color of Urine by Auto Yellow [facility] Complete Blood Count Auto Di ffon 09-07-2024 Basophils (Bld) [#/Vol] 0.1 10*3/uL Normal 0.0-0.2 [facility] Comment on above: Result Comment: PERF ORMED BY: [place] [address] PATHOLOGIST TRACK SERVICE PERSON YARELY LEOS M.D. Performed By: #### C MP, CRP, CBC #### [address] Basophils/100 WBC (Bld) 0.8 % Normal . [facility] Comment on above: Performed By: #### C MP, CRP, CBC #### [place] [address] [place] Eosinophils (Bld) [#/Vol] 0.9 10*3/uL High 0.0-0.45 [facility] Comment on above: Performed By: #### C MP, CRP, CBC #### [address] Eosinophils/100 WBC (Bld) 10.4 % Normal . [facility] Comment on above: Performed By: #### C MP, CRP, CBC #### [address] Erythrocyte distribution width (RBC) [Ratio] 14.1 % Normal 11.9-15.3 [facility] Comment on above: Performed By: #### C MP, CRP, CBC #### [address] Hematocrit (Bld) [Volume fraction] 36.7 % Normal 34.0-46.4 [facility] Comment on above: Performed By: #### C MP, CRP, CBC #### [place] [address] [place] Hemoglobin (Bld) [Mass/Vol] 12.7 g/dL Normal 11.8-15.4 [facility] Comment on above: Performed By: #### C MP, CRP, CBC #### [place] [address] [place] Lymphocytes (Bld) [#/Vol] 3.1 10*3/uL Normal 1.00-4.8 [facility] Comment on above: Performed By: #### C MP, CRP, CBC #### [address] Lymphocytes/100 WBC (Bld) 35.8 % Normal . [facility] Comment on above: Performed By: #### C MP, CRP, CBC #### [address] MCH (RBC) [Entitic mass] 30.0 pg Normal 24.7-34.3 [facility] Comment on above: Performed By: #### C MP, CRP, CBC #### [address] MCV (RBC) [Entitic vol] 86.6 fL Normal 80-100 [facility] Comment on above: Performed By: #### C MP, CRP, CBC #### [address] Mean Corpuscular HGB Conc 34.6 g/dL Normal 32.0-35.0 [facility] Comment on above: Performed By: #### C MP, CRP, CBC #### [place] [address] [place] Monocytes (Bld) [#/Vol] 0.8 10*3/uL Normal 0.0-0.8 [facility] Comment on above: Performed By: #### C MP, CRP, CBC #### [address] Monocytes/100 WBC (Bld) 9.4 % Normal . [facility] Comment on above: Performed By: #### C MP, CRP, CBC #### [address] Neutrophils (Bld) [#/Vol] 3.8 10*3/uL Normal 1.8-7.7 [facility] Comment on above: Performed By: #### C MP, CRP, CBC #### [address] Neutrophils/100 WBC (Bld) 43.6 % Normal . [facility] Comment on above: Performed By: #### C MP, CRP, CBC #### [address] NRBC% 0.0 /100{WBC} Normal 0-0.5 [facility] Comment on above: Performed By: #### C MP, CRP, CBC #### [address] Platelet mean volume (Bld) [Entitic vol] 6.7 fL Normal 6.3-10.7 [facility] Comment on above: Performed By: #### C MP, CRP, CBC #### [address] Platelets (Bld) [#/Vol] 348 10*3/uL Normal 150-450 [facility] Comment on above: Performed By: #### C MP, CRP, CBC #### [address] RBC (Bld) [#/Vol] 4.23 10*6/uL Normal 3.60-5.00 [facility] Comment on above: Performed By: #### C MP, CRP, CBC #### [address] WBC (Bld) [#/Vol] 8.7 10*3/uL Normal 3.8-11.6 [facility] Comment on above: Performed By: #### C MP, CRP, CBC #### [address] Comprehensive Metabolic Pane cata 09-07-2024 Albumin [Mass/Vol] 3.9 g/dL Normal 3.5-5.7 [facility] Comment on above: Performed By: #### C MP, CRP, CBC #### [address] Albumin/Globulin [Mass ratio] 1.1 {ratio} Normal [facility] Comment on above: Performed By: #### C MP, CRP, CBC #### [place] [address] [place] ALP [Catalytic activity/Vol] 68 U/L Normal 34-104 [facility] Comment on above: Performed By: #### C MP, CRP, CBC #### [address] ALT [Catalytic activity/Vol] 21 U/L Normal 7-52 [facility] Comment on above: Performed By: #### C MP, CRP, CBC #### [address] Anion gap [Moles/Vol] 12.5 mmol/L Normal 6.0-15.0 [facility] Comment on above: Performed By: #### C MP, CRP, CBC #### [address] AST [Catalytic activity/Vol] 17 U/L Normal 13-39 [facility] Comment on above: Performed By: #### C MP, CRP, CBC #### [address] Bilirubin [Mass/Vol] 0.5 mg/dL Normal 0.3-1.0 [facility] Comment on above: Performed By: #### C MP, CRP, CBC #### [address] Calcium [Mass/Vol] 9.3 mg/dL Normal 8.6-10.3 [facility] Group Comment on above: Performed By: #### C MP, CRP, CBC #### [address] Chloride [Moles/Vol] 96 mmol/L Low 98-107 [facility] Comment on above: Performed By: #### C MP, CRP, CBC #### [address] CO2 [Moles/Vol] 29.9 mmol/L Normal 21.0-31.0 [facility] Comment on above: Performed By: #### C MP, CRP, CBC #### [address] Creatinine [Mass/Vol] 0.69 mg/dL Normal 0.60-1.20 [facility] Comment on above: Performed By: #### C MP, CRP, CBC #### [address] GFR/1.73 sq M.predicted MDRD (S/P/Bld) [Vol rate/Area] mL/min/{1.73_m2} Normal [facility] Comment on above: Performed By: #### C MP, CRP, CBC #### [address] Globulin (S) [Mass/Vol] 3.5 g/dL Normal [facility] Comment on above: Performed By: #### C MP, CRP, CBC #### [address] Glucose [Mass/Vol] 82 mg/dL Normal 70-100 [facility] Comment on above: Result Comment: [facility] Glucose Reference Range is dependent on time and content of last meal. Glucose of more than 200 mg/dL in a nonstressed, ambulatory subject supports the diagnosis of Diabetes Mellitus. ADA recommended reference range Performed By: #### C MP, CRP, CBC #### [address] Potassium [Moles/Vol] 4.4 mmol/L Normal 3.5-5.1 [facility] Comment on above: Performed By: #### C MP, CRP, CBC #### [place] [address] [place] Protein [Mass/Vol] 7.4 g/dL Normal 6.4-8.9 [facility] Comment on above: Performed By: #### C MP, CRP, CBC #### [place] [address] [place] Sodium [Moles/Vol] 134 mmol/L Low 136-145 [facility] Comment on above: Performed By: #### C MP, CRP, CBC #### [address] Urea nitrogen [Mass/Vol] 11 mg/dL Normal 7-25 [facility] Comment on above: Performed By: #### C MP, CRP, CBC #### [facility] [address] Creatinine [Mass/volume] in Serum or PlasmaOrdered By: Cesar Estrada on 09-07-2024 Creatinine [Mass/Vol] Creatinine [Mass/volume] in Serum or Plasma 0.60-1.20 [facility] Dipstick and Microscopicon 0 09-07-2024 Appearance (U) Clear Normal Clear [facility] Comment on above: Order Comment: Name Collection Type:: Clean-Voided Midstream Performed By: #### A 1C WTH eA, ADDONUAPLUS #### [place] [address] [place] Bacteria,Urine Rare Normal None Seen [facility] Comment on above: Order Comment: Name Collection Type:: Clean-Voided Midstream Performed By: #### A 1C WTH eA, ADDONUAPLUS #### [place] [address] [place] Bilirubin,Urine Negative Normal Negative [facility] Comment on above: Order Comment: Name Collection Type:: Clean-Voided Midstream Performed By: #### A 1C WTH eA, ADDONUAPLUS #### [address] Color (U) Light-Yellow Normal Yellow [facility] Comment on above: Order Comment: Name Collection Type:: Clean-Voided Midstream Performed By: #### A 1C WTH eA, ADDONUAPLUS #### [address] Glucose Ql (U) Normal Normal Normal [facility] Comment on above: Order Comment: Name Collection Type:: Clean-Voided Midstream Performed By: #### A 1C WTH eA, ADDONUAPLUS #### [place] [address] [place] Hyaline Casts,Urine None Normal 0-8 [facility] Comment on above: Order Comment: Name Collection Type:: Clean-Voided Midstream Performed By: #### A 1C WTH eA, ADDONUAPLUS #### [address] Ketones Ql (U) Negative Normal Negative [facility] Comment on above: Order Comment: Name Collection Type:: Clean-Voided Midstream Performed By: #### A 1C WTH eA, ADDONUAPLUS #### [address] Leukocyte esterase Test strip Ql (U) 2+ High Negative [facility] Comment on above: Order Comment: Name Collection Type:: Clean-Voided Midstream Performed By: #### A 1C WTH eA, ADDONUAPLUS #### [place] [address] [place] Mucus,Urine Rare Normal [facility] Comment on above: Order Comment: Name Collection Type:: Clean-Voided Midstream Result Comment: PERF ORMED BY: [place] [address] PATHOLOGIST TRACK SERVICE PERSON YARELY LEOS M.D. Performed By: #### A 1C WTH eA, ADDONUAPLUS #### [place] [address] [place] Nitrite,Urine Negative Normal Negative [facility] Comment on above: Order Comment: Name Collection Type:: Clean-Voided Midstream Performed By: #### A 1C WTH eA, ADDONUAPLUS #### [place] [address] [place] Occult Blood,Urine Negative Normal Negative [facility] Comment on above: Order Comment: Name Collection Type:: Clean-Voided Midstream Performed By: #### A 1C WTH eA, ADDONUAPLUS #### [place] [address] [place] pH (U) 7.5 [pH] Normal 5.0-9.0 [facility] Comment on above: Order Comment: Name Collection Type:: Clean-Voided Midstream Performed By: #### A 1C WTH eA, ADDONUAPLUS #### [place] [address] [place] Protein,Urine Negative Normal Negative [facility] Comment on above: Order Comment: Name Collection Type:: Clean-Voided Midstream Performed By: #### A 1C WTH eA, ADDONUAPLUS #### [place] [address] [place] RBC,Urine 1-2 Normal 0-4 [facility] Comment on above: Order Comment: Name Collection Type:: Clean-Voided Midstream Performed By: #### A 1C WTH eA, ADDONUAPLUS #### [address] Specificy [place],Urine 1.009 Normal 1.001-1.030 [facility] Comment on above: Order Comment: Name Collection Type:: Clean-Voided Midstream Performed By: #### A 1C WTH eA, ADDONUAPLUS #### [address] Squamous Epithelial Cell,Urine 1-2 Normal 0-2 [facility] Comment on above: Order Comment: Name Collection Type:: Clean-Voided Midstream Performed By: #### A 1C WTH eA, ADDONUAPLUS #### [place] [address] [place] Urobilinogen,Urine Normal Normal Normal [facility] Comment on above: Order Comment: Name Collection Type:: Clean-Voided Midstream Performed By: #### A 1C WTH eA, ADDONUAPLUS #### [place] [address] [place] WBC,Urine 3-4 Normal 0-4 [facility] Comment on above: Order Comment: Name Collection Type:: Clean-Voided Midstream Performed By: #### A 1C WTH eA, ADDONUAPLUS #### [address] ECG 12 lead ECGon 09-07-2024 ECG 12 lead ECG [facility] [place] [address] Electrocardiograph Report Signed Patient: Gia Ruiz MR#: [id number] : 1950 Acct:[id number] Age/Sex: 74 / F ADM Date: 09/07/24 Loc: Room: Type: [facility] Attending Dr: Rosalinda Bernstein PA-C Ordering Provider: [...] change was found Confirmed by [facility]AS[facility], JACKIE ([id number]) on 09/07/2024 4:51:09 PM Referred By: Electronically Signed By: JACKIE GASPAR MD FAC Transcribed By: MUS Signed By Jackie Gaspar MD, FACC 09/07/24 1651 Normal [facility] Eosinophils Auto (Bld) [#/Vo l]Ordered By: Cesar Estrada on 09-07-2024 Eosinophils (Bld) [#/Vol] Automated eosinophil count High 0.0-0.45 [facility] Eosinophils/100 WBC Auto (Bl d)Ordered By: Cesar Estrada on 09-07-2024 Eosinophils/100 WBC (Bld) Automated eosinophil % . [facility] Epithelial cells.squamous [# /area] in Urine sediment by Automated countOrdered By: Rosalinda Bernstein on 09-07-2024 Epithelial cells.squamous Auto (Urine sed) [#/Area] Epithelial cells.squamous [#/area] in Urine sediment by Automated count 0-2 [facility] Erythrocyte distribution wid th Auto (RBC) [Ratio]Ordered By: Cesar Estrada on 09-07-2024 Erythrocyte distribution width (RBC) [Ratio] Erythrocyte distribution width [Ratio] by Automated count 11.9-15.3 [facility] Erythrocytes [#/area] in Uri ne sediment by Automated countOrdered By: Rosalinda Bernstein on 09-07-2024 RBC Auto (Urine sed) [#/Area] Erythrocytes [#/area] in Urine sediment by Automated count 0-4 [facility] Globulin Calc (S) [Mass/Vol] Ordered By: Cesar Estrada on 09-07-2024 Globulin (S) [Mass/Vol] Serum globulin measurement by calculation (mass/volume) [facility] Glucose [Mass/volume] in Ser um or PlasmaOrdered By: Cesar Estrada on 09-07-2024 Glucose [Mass/Vol] Glucose [Mass/volume ] in Serum or Plasma 70-100 [facility] Comment on above: ADA recommended [...] [Mass/volume] in Urine by Test strip Normal [facility] Hematocrit Auto (Bld) [Volum e fraction]Ordered By: Cesar Estrada on 09-07-2024 Hematocrit (Bld) [Volume fraction] Hematocrit [Volume Fraction] of Blood by Automated count 34.0-46.4 [facility] Hemoglobin Test strip Ql (U) Ordered By: Rosalinda Bernstein on 09-07-2024 Hemoglobin Ql (U) Hemoglobin [Presence ] in Urine by Test strip Negative [facility] Hemoglobin [Mass/volume] in BloodOrdered By: Cesar Estrada on 09-07-2024 Hemoglobin (Bld) [Mass/Vol] Hemoglobin [Mass/volume] in Blood 11.8-15.4 [facility] Hyaline casts [#/area] in Ur ine sediment by Automated countOrdered By: Rosalinda Bernstein on 09-07-2024 Hyaline casts Auto (Urine sed) [#/Area] Hyaline casts [#/area] in Urine sediment by Automated count 0-8 [facility] Ketones Test strip Ql (U)Ord ered By: Rosalinda Bernstein on 09-07-2024 Ketones Ql (U) Ketones [Presence] i n Urine by Test strip Negative [facility] Leukocyte esterase [Presence ] in Urine by Test stripOrdered By: Rosalinda Bernstein on 09-07-2024 Leukocyte esterase Test strip Ql (U) Leukocyte esterase [Presence] in Urine by Test strip High Negative [facility] Leukocytes [#/area] in Urine sediment by Automated countOrdered By: Rosalinda Bernstein on 09-07-2024 WBC Auto (Urine sed) [#/Area] Leukocytes [#/area] in Urine sediment by Automated count 0-4 [facility] Leukocytes [#/volume] correc lisa for nucleated erythrocytes in Blood by Automated counOrdered By: Cesar Estrada on 09-07-2024 WBC corrected for nucl RBC Auto (Bld) [#/Vol] Leukocytes [#/volume] corrected for nucleated erythrocytes in Blood by Automated coun 3.8-11.6 [facility] Lymphocytes Auto (Bld) [#/Vo l]Ordered By: Cesar Estrada on 09-07-2024 Lymphocytes (Bld) [#/Vol] Lymphocytes [#/volume] in Blood by Automated count 1.00-4.8 [facility] Lymphocytes/100 WBC Auto (Bl d)Ordered By: Cesar Estrada on 09-07-2024 Lymphocytes/100 WBC (Bld) Lymphocytes/100 leukocytes in Blood by Automated count . [facility] MCH Auto (RBC) [Entitic mass ]Ordered By: Cesar Estrada on 09-07-2024 MCH (RBC) [Entitic mass] MCH [Entitic mass] by Automated count 24.7-34.3 [facility] MCHC Auto (RBC) [Mass/Vol]Or dered By: Cesar Estrada on 09-07-2024 MCHC (RBC) [Mass/Vol] MCHC [Mass/volume] by Automated count 32.0-35.0 [facility] MCV Auto (RBC) [Entitic vol] Ordered By: Cesar Estrada on 09-07-2024 MCV (RBC) [Entitic vol] MCV [Entitic volume] by Automated count 80-100 [facility] Monocytes Auto (Bld) [#/Vol] Ordered By: Cesar Estrada on 09-07-2024 Monocytes (Bld) [#/Vol] Automated blood monocyte count 0.0-0.8 [facility] Monocytes/100 WBC Auto (Bld) Ordered By: Cesar Estrada on 09-07-2024 Monocytes/100 WBC (Bld) Automated monocyte % . [facility] Mucus [Presence] in Urine by AutomatedOrdered By: Rosalinda Bernstein on 09-07-2024 Mucus Auto Ql (U) Mucus [Presence] in Urine by Automated [facility] Neutrophils Auto (Bld) [#/Vo l]Ordered By: Cesar Estrada on 09-07-2024 Neutrophils (Bld) [#/Vol] Neutrophils [#/volume] in Blood by Automated count 1.8-7.7 [facility] Neutrophils/100 WBC Auto (Bl d)Ordered By: Cesar Estrada on 09-07-2024 Neutrophils/100 WBC (Bld) Automated neutrophil % . [facility] Nitrite Test strip Ql (U)Ord ered By: Rosalinda Bernstein on 09-07-2024 Nitrite Ql (U) Nitrite [Presence] i n Urine by Test strip Negative [facility] No Panel InformationOrdered By: Cesar Estrada on 09-07-2024 Estimated GFR (CKD-EPI) > 60.0 mL/Min [facility] Creatinine Clearance (Chem N/A [facility] Nucleated erythrocytes [Pres ence] in Blood by Automated countOrdered By: Cesar Estrada on 09-07-2024 Nucleated RBC Auto Ql (Bld) Nucleated erythrocytes [Presence] in Blood by Automated count 0-0.5 [facility] Platelet mean volume Auto (B ld) [Entitic vol]Ordered By: Cesar Estrada on 09-07-2024 Platelet mean volume (Bld) [Entitic vol] Platelet mean volume [Entitic volume] in Blood by Automated count 6.3-10.7 [facility] Platelets Auto (Bld) [#/Vol] Ordered By: Cesar Estrada on 09-07-2024 Platelets (Bld) [#/Vol] Platelets [#/volume] in Blood by Automated count 150-450 [facility] Potassium [Moles/volume] in Serum or PlasmaOrdered By: Cesar Estrada on 09-07-2024 Potassium [Moles/Vol] Potassium [Moles/volume] in Serum or Plasma 3.5-5.1 [facility] Protein Test strip (U) [Mass /Vol]Ordered By: Rosalinda Bernstein on 09-07-2024 Protein (U) [Mass/Vol] Protein [Mass/volume] in Urine by Test strip Negative [facility] Protein [Mass/volume] in Ser um or PlasmaOrdered By: Cesar Estrada on 09-07-2024 Protein [Mass/Vol] Protein [Mass/volume ] in Serum or Plasma 6.4-8.9 [facility] RBC Auto (Bld) [#/Vol]Ordere d By: Cesar Estrada on 09-07-2024 RBC (Bld) [#/Vol] Erythrocytes [#/volume] in Blood by Automated count 3.60-5.00 [facility] Serum or plasma albumin/glob ulin mass ratioOrdered By: Cesar Estrada on 09-07-2024 Albumin/Globulin [Mass ratio] Serum or plasma albumin/globulin mass ratio [facility] Serum or plasma anion gap de terminationOrdered By: Cesar Estrada on 09-07-2024 Anion gap [Moles/Vol] Serum or plasma an ion gap determination 6.0-15.0 [facility] Sodium [Moles/volume] in Ser um or PlasmaOrdered By: Cesar Estrada on 09-07-2024 Sodium [Moles/Vol] Sodium [Moles/volume ] in Serum or Plasma Low 136-145 [facility] Specific gravity Test strip (U) [Rel density]Ordered By: Rosalinda Bernstein on 09-07-2024 Specific gravity (U) [Rel density] Specific gravity of Urine by Test strip 1.001-1.030 [facility] Urea nitrogen [Mass/volume] in Serum or PlasmaOrdered By: Cesar Estrada on 09-07-2024 Urea nitrogen [Mass/Vol] Urea nitrogen [Mass/volume] in Serum or Plasma 7-25 [facility] Urobilinogen Test strip (U) [Mass/Vol]Ordered By: Rosalinda Bernstein on 09-07-2024 Urobilinogen (U) [Mass/Vol] Urobilinogen [Mass/volume] in Urine by Test strip Normal [facility] WBC Auto (Bld) [#/Vol]Ordere d By: Cesar Estrada on 09-07-2024 WBC (Bld) [#/Vol] Leukocytes [#/volume ] in Blood by Automated count 3.8-11.6 [facility] pH Test strip (U)Ordered By: Rosalinda Bernstein on 09-07-2024 pH (U) pH of Urine by Test strip 5.0-9.0 [facility] Ambulatory Visit Summaryon 0 08-29-2024 Ambulatory Visit Summary Ambulatory Visit Summary GIA RUIZ :1950 Visit Date:08/29/2024 Ambulatory Visit Instructions Your Diagnosis Crohn's disease [facility] (current) use of immunosuppressive biologic Primary generalized [...] MOSLEY, Bertha Vu Where: [facility] [address] [place] [address]- Thursday 1:00 PM EST With: Where: [facility] [address] [address]- Medications What How Much When Instructions Unchanged [...] Incomplete bladder emptying Kidney stone Labial abscess [facility] (current) use of immunosuppressive biologic Obesity (BMI [...] Follow with GI. treatment with Humira 3. 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) see above [...] cholesterol under control will continue statin Other custodial (current) drug therapy (Z79.899: Other custodial (current) drug therapy) taking humira for crohn's Orders: metformin, 500 mg = 1 tab(s), Oral, TID, # 270 tab(s), Refills(s) 0, [facility], [facility], cm, 02/18/24 13:05:00 EDT, Height/Length Dosing, 91.7, kg, 02/18/24 13:05:00 EDT, Weight Dosing Follow-up No qualifying data available Problem List/Past Medical History Ongoing BMI 35.0-35.9,adult Crohn's disease GERD (gastroesophageal reflux disease) HTN (hypertension) Hyperlipidemia Hypothyroidism Immunodeficiency due to drugs Incomplete bladder emptying Kidney stone Labial abscess 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 Ordering Physician: Robert Ferreira D.O. Results: Date of Service: 08/29/24 Follow Up: Procedure(s): MM tomosynthesis screening BI Accession Number(s): [id number] cc: Robert Ferreira D.O.; MILE SANCHEZ Patient Name: GIA RUIZ MR#: [id number] : 1950 Exam Date: 08/29/2024 Ordering Doctor: [...] prostate cancer at age 71. LOCATION: [facility] BREAST COMPOSITION: The breasts are almost [...] Signed By: 08/29/24 1558 DD/ 1557 TD/TT: Cooking Appliance Repair Technician: [facility] Radiology, Radiologist, - 08/29/2024 [place] [address] Mammography Report Signed Patient: GIA RUIZ MR#: [id number] : 1950 Acct:[id number] Age/Sex: 74 / F ADM Date: 08/29/24 Loc: MAMMO Attending Dr: Robert Ferreira D.O. Ordering Physician: Robert Ferreira D.O. Results: Date of Service: 08/29/24 Follow Up: Procedure(s): MM tomosynthesis screening BI Accession Number(s): [id number] cc: Robert Ferreira D.O.; MILE SANCHEZ Patient Name: GIA RUIZ MR#: [id number] : 1950 Exam Date: 08/29/2024 Ordering Doctor: DR Robret Ferreira . RADIOLOGY REPORT PROCEDURE: MM TOMOSYNTHESIS [...] prostate cancer at age 71. LOCATION: [facility] BREAST COMPOSITION: The breasts are almost [...] Signed By: 08/29/24 1558 DD/ 155 TD/TT: Cooking Appliance Repair Technician: [facility] Radiology Study observation (narrative) [facility] MM TOMOSYNTHESIS SCREENING B IOrdered By: Radiologist Radiology on 08-29-2024 [facility] Work Phone: IGP,APTIMA HPV,AGE GDLNon AGE GDLN ACOG TESTING Note . [facility] Comment on above: TESTS RESULT FLAG UN ITS REF RANGE LAB Clinician Provided Cytology Information Source.............Vagina No. of containers..01 ThinPrep Vial Age Algo ACOG La... Note 01 <21 or >65 or no age provided FLAG LEGEND: L-Low Normal,H-High Normal,LL-Alert Low,HH-Alert High <-Panic Low,>-Panic High,A-Abnormal,AA-Critical Abnormal Performed at: 01 =G [address] [address] Lorena Dennis MD, PAP IG (IMAGE GUIDED) Note . [facility] Comment on above: TESTS RESULT FLAG UN ITS REF RANGE LAB DIAGNOSIS: 02 NEGATIVE FOR INTRAEPITHELIAL LESION OR MALIGNANCY. CELLULAR CHANGES ASSOCIATED WITH ATROPHY ARE PRESENT. Specimen adequacy: 02 Satisfactory for evaluation. Performed by: 02 Bambi Lock Edi Analyst ([facility]) . 02 Note: Note 03 The Pap [...] High,A-Abnormal,AA-Critical Abnormal Performed at: 02 [facility] [address] [place] [id number] Daron Winslow MD, 03 WB [facility] [address] [address] Lorena Dennis MD, Performed at: =G - [facility] [address] [id number] Med Dir: Lorena Dennis MD, Phone: [phone] Performed at: [facility] - [facility] [address] [facility], [place], [place] [id number] Med Dir: Daron Winslow MD, Phone: [phone] SHENG-SUSAN [facility] Pre-Visit Planningon 025 Pre-Visit Planning Pre-Visit Planning From: Sulema Urbina To: Bambi Reynolds; Sent: 08/26/2024 11:21:21 EDT Subject: Pre-Visit Planning Due Date/Time: 08/26/2024 11:21:00 EDT Caller Name: GIA RUIZ Anthony; Caller Number: [phone], M Praveen Lacy. During a pre-visit planning [...] feel free to contact me at extension [phone]. Thank you and have a good weekend! Sulema Urbina LPN [employer] Attendant [place] [address] Extension: [phone] [email or web address] Normal [facility] No Panel Informationon 06-08 Consent obtained: written (The rationale for Mohs as well as the risks, benefits, and alternatives. The risks of infection, scarring, bleeding, prolonged wound healing, incomplete removal, allergy to anesthesia or meds, nerve injury, and recurrence were addressed.) [place] Protocol: Procedure explained and questions answered to [...] sodium bicarbonate Procedure Details: Biopsy accession number: [id number] Biopsy lab: [employer] [facility] Date of biopsy: 04/12/2024 Frozen section biopsy [...] tissue sections, stained, and evaluated by Dr. Jmaes for interpretation of deep and peripheral margins. The Mohs map was updated. Assistants: Raoul Alves LPN Amount of lidocaine used: 1.5 cc Estimated blood loss: < 1.0 cc Defect size: 1.4 x 1.1 cm Number of blocks: 1 Number of positive blocks: 0 (more content not included)... [facility] No Panel InformationOrdered By: Paige Sepulveda on 06-08-2024 [facility] CHEMISTRYOrdered By: SYSTEM SYSTEM on 05-26-2024 Albumin [...] Comment on above: Performed By: #### 2 [id number] #### [facility] [address] [place] [address] Albumin/Globulin (S) [Mass conc ratio] 1.0 Low 1.1-2.2 [facility] Comment on above: Performed By: #### 2 [id number] #### [facility] [address] [place] [address] ALP [Catalytic activity/Vol] 57 Int._Unit/L Normal 21-98 [facility] Comment on above: Performed By: #### 2 [id number] #### [facility] [address] [place] [address] ALT No additional P-5'-P [Catalytic activity/Vol] 17 Int._Unit/L Normal 6-46 [facility] Comment on above: Performed By: #### 2 [id number] #### [facility] [address] [place] [address] Anion gap [Moles/Vol] 11 mmol/L Normal 6-16 [facility] Comment on above: Performed By: #### 2 [id number] #### [facility] [address] [place] [address] AST [Catalytic activity/Vol] 18 Int._Unit/L Normal 5-43 [facility] Comment on above: Performed By: #### 2 [id number] #### [facility] [address] [place] [address] Bilirubin [Mass/Vol] 0.6 mg/dL Normal 0.0-1.1 [facility] Comment on above: Performed By: #### 2 [id number] #### [facility] [address] [place] [address] Calcium [Mass/Vol] 9.1 mg/dL Normal 8.9-11.1 [facility] Comment on above: Performed By: #### 2 [id number] #### [facility] [address] [place] [address] Chloride [Moles/Vol] 98 mmol/L Low 101-111 [facility] Comment on above: Performed By: #### 2 165909 #### [facility] [address] [place] [address] CO2 [Moles/Vol] 29 mmol/L Normal 21-31 [facility] Comment on above: Performed By: #### 2 [id number] #### [facility] [address] [place] [address] Creatinine [Mass/Vol] 0.8 mg/dL Normal 0.5-1.3 [facility] Comment on above: Performed By: #### 2 [id number] #### [facility] [address] [place] [address] Globulin (S) [Mass/Vol] 3.8 g/dL Normal 1.4-4.0 [facility] Comment on above: Performed By: #### 2 [id number] #### [facility] [address] [place] [address] Glucose [Mass/Vol] 77 mg/dL Normal 55-199 [facility] Comment on above: Performed By: #### 2 [id number] #### [facility] [address], [place] [address] Potassium [Moles/Vol] 3.8 mmol/L Normal 3.5-5.3 [facility] Comment on above: Performed By: #### 2 [id number] #### [facility] [address] [place] [address] Protein [Mass/Vol] 7.7 g/dL Normal 6.0-7.8 [facility] Comment on above: Performed By: #### 2 [id number] #### [facility] [address] [place] [address] Sodium [Moles/Vol] 134 mmol/L Low 135-145 [facility] Comment on above: Performed By: #### 2 [id number] #### [facility] [address] [place] [address] Urea nitrogen [Mass/Vol] 18 mg/dL Normal 5-21 [facility] Comment on above: Performed By: #### 2 [id number] #### [facility] [address] [place] [address] Urea nitrogen/Creatinine [Mass ratio] 22 No Units High 10-20 [facility] Comment on above: Performed By: #### 2 [id number] #### [facility] [address] [place] [address] OxnE4mtr 05-26-2024 HbA1c (Bld) [Mass fraction] 5.4 % Normal <=5.9 [facility] Comment on above: Performed By: #### 7 [id number] #### [facility] [address] [place] [address] Lipid Panelon 05-26-2024 Cholesterol [Mass/Vol] 161 mg/dL Normal 120-200 [facility] Comment on above: Performed By: #### 2 [id number] #### [facility] [address] [place] [address] Cholesterol in HDL [Mass/Vol] 71 mg/dL Invalid Interpretation Code [facility] Comment on above: Result Comment: '>= 60 LOW RISK' '<= 40 HIGH RISK' Performed By: #### 2 [id number] #### [facility] [address] [place] [address] Cholesterol in LDL [Mass/Vol] 82 mg/dL Normal <=129 [facility] Comment on above: Performed By: #### 2 [id number] #### [facility] [address] [place] [address] Cholesterol in VLDL [Mass/Vol] 12 mg/dL Normal 7-40 [facility] Comment on above: Performed By: #### 2 [id number] #### [facility] [address] [place] [address] Triglyceride [Mass/Vol] 58 mg/dL Normal <=149 [facility] Comment on above: Performed By: #### 2 [id number] #### [facility] [address] [place] [address] TSHon 05-26-2024 TSH Qn 0.82 m[IU]/L Normal 0.34-5.60 [facility] Comment on above: Performed By: #### 2 [id number] #### [facility] [address] [place] [address] U MA/Cr Ratioon 05-26-2024 Albumin DL <= 20 mg/L (U) [Mass/Vol] 0.9 mg/dL Normal 0.0-1.9 [facility] Comment on above: Performed By: #### 1 [id number] #### [facility] [address] [place] [address] Albumin/Creatinine DL <= 20 mg/L (U) [Mass ratio] 21.6 mg/gm Cr Normal .0-30.0 [facility] Comment on above: Result Comment: 30-3 00 mg/g Cr indicates an increased risk for diabetic nephropathy. >300 mg/g Cr is consistent with clinical nephropathy. Performed By: #### 1 [id number] #### [facility] [address] [place] [address] U Creatinine 41.7 mg/dL Invalid Interpretation Code [facility] Comment on above: Performed By: #### 1 [id number] #### [facility] [address] [place] [address] eGFRon 05-26-2024 eGFR 78 mL/min/1.73 m2 Normal >=59 [facility] Comment on above: Performed By: #### 1 [id number] #### [facility] [address] [place] [address] Ambulatory Visit Summaryon 0 05-19-2024 Ambulatory Visit [...] Appointments 2024 9:00 AM EST With: Where: [address] [id number]- Thursday 10:00 AM EDT With: Bambi Reynolds Where: [address] [address]- Thursday 11:00 AM EDT With: Bertha BLAND MD Where: [facility] [address] [place] [id number]- Thursday 1:00 PM EST With: Where: [address] [address]- You Need to Complete the [...] of clutter to prevent tripping and/or falling. [place] Advance Directives reviewed. Documents present in chart. [...] taken Amount of lidocaine used: 0.5 cc [facility] [employer] No Panel InformationOrdered By: Jocelin Garcia on 04-12-2024 [facility] Ambulatory Visit Summaryon 1 Ambulatory Visit Summary Ambulatory Visit Summary GIA RUIZ Anthony :1950 Visit Date:03/15/2024 Ambulatory Visit Instructions Your Diagnosis Labial abscess Former smoker BMI 35.0-35.9,adult Obesity (BMI 35.0-39.9 without comorbidity) Your Care Team Attending Physician - Bambi Reynolds Primary Care Physician - Bambi Reynolds This Is Your Medications List [facility] Prescription (BACLOFEN 10 MG TABLET) acetaminophen (acetaminophen [...] 2023 1:00 PM EST With: Where: [facility] [address] [address]- Thursday 11:00 AM EDT With: EDWINA MOSLEY, Bertha Vu Where: [facility] [address] [address]- Medications What How Much When Instructions Unchanged [...] you for choosing us for your care. [facility] Ambulatory Visit Summary Ambulatory Visit Summary GIA [...] 2023 1:00 PM EST With: Where: [facility] [address] [address]- Thursday 11:00 AM EDT With: EDWINA MOSLEY, Bertha Vu Where: [facility] [address] [place] [address]- Medications What How Much When Instructions Unchanged [...] q12hr, # 20 cap(s), Refills(s) 0, [facility]: [id number], 158, cm, 03/15/24 15:36:00 EDT, Height/Length Dosing, 87.9, kg, 03/15/24 15:36:00 EDT, Weight Dosing 2. Former smoker (Z87.891: Personal history of nicotine dependence) continue not smoking Ordered: cephalexin, 500 mg = 1 cap(s), Oral, q12hr, # 20 cap(s), Refills(s) 0, Pharmacy: [facility] #[id number], 158, cm, 03/15/24 15:36:00 EDT, Height/Length Dosing, 87.9, kg, 03/15/24 15:36:00 EDT, Weight Dosing 3. BMI 35.0-35.9,adult (Z68.35: Body mass index [BMI] 35.0-35.9, adult) BMI education Ordered: cephalexin, 500 mg = 1 cap(s), Oral, q12hr, # 20 cap(s), Refills(s) 0, Pharmacy: [facility]/pharmacy #[id number], 158, cm, 03/15/24 15:36:00 EDT, Height/Length Dosing, 87.9, kg, 03/15/24 15:36:00 EDT, Weight Dosing 4. Obesity (BMI 35.0-39.9 without comorbidity) (E66.9: Obesity, unspecified) see above Ordered: cephalexin, 500 mg = 1 cap(s), Oral, q12hr, # 20 cap(s), Refills(s) 0, Pharmacy: [facility]/pharmacy #[id number], 158, cm, 03/15/24 15:36:00 EDT, Height/Length [...] KUB -repeat KUB/TIM in 1 yr Ordered: 81970 Measure Post Void residual urine and/or bladder capacity by US- non-imaging Urnls Dip Stick Auto w/o Microscopy POC 51802 2. Incomplete bladder emptying (R33.9: Retention of urine, unspecified) PVR (cc): 02/13/23 - 120 (voided 45 min prior) 08/17/23 - 326 (did not perform double void maneuver) 09/14/23 - 105 mL (pt voided 30min prior) TODAY: 162ml No recent UTIs. Ordered: 60462 Measure Post Void residual urine and/or bladder [...] EDWINA MOSLEY, TEODORO Easley Within [address] [place] [address]- Additional Instructions: KUB & TIM prior Patient Education Kidney Stones, Cdtv-nr-Rskj Problem List/Past Medical History Ongoing Asymptomatic microscopic [...] mg= 1 tab(s), (more content not included)... [facility] Comment on above: Result Comment: Elec tronically [...] for KUB. results in chart for review [facility] C Urineon 01-23-2024 Bacteria identified Cx Nom [...] Locations R1: This test was performed at: [facility], [address] [place] [address], [address]- , , [facility] Comment on above: Performed By: #### 2 [id number] #### [facility] [address] [place] [address] Ambulatory Visit Summaryon 0 01-21-2024 Ambulatory Visit [...] MOSLEY, Bertha Vu Where: [facility] [address] [place] [address]- 2023 1:00 PM EST With: Where: [facility] [place] [address] [place] [address]- Medications What How Much When Instructions Unchanged [...] your survey. (more content not included)... Normal [facility] Medicine Office/Clini c Noteon 01-21-2024 Family [...] Urnls Dip Stick Auto w/o Microscopy POC 89560 2. Urinary frequency (R35.0: Frequency of micturition) see above Ordered: Urine Culture Urnls Dip Stick Auto w/o Microscopy POC 14420 3. Former smoker (Z87.891: Personal history of nicotine dependence) continue not smoking Ordered: Urnls Dip Stick Auto w/o Microscopy POC 77676 4. BMI 34.0-34.9,adult (Z68.34: Body mass index [BMI] 34.0-34.9, adult) BMI education Ordered: Urnls Dip Stick Auto w/o Microscopy POC 43100 5. Class 1 obesity due to excess calories in adult (E66.09: Other obesity due to excess calories) see above Ordered: Urnls Dip Stick Auto w/o Microscopy POC [address] Orders: ciprofloxacin, 500 mg = 1 tab(s), Oral, q12hr, X 7 day(s), # 14 tab(s), Refills(s) 0, Pharmacy: [facility], 158, cm, 01/21/24 10:49:00 EDT, Height/Length Dosing, 86.1, kg, 01/21/24 10:49:00 EDT, Weight Dosing ciprofloxacin, 500 mg = 1 tab(s), Oral, q12hr, X 7 day(s), # 14 tab(s), Refills(s) 0, Pharmacy: [facility]/pharmacy #[id number], 158, cm, 01/21/24 10:49:00 EDT, Height/Length [...] 11:10 EDT Consultation Noteon 11-05-19 Consultation Note [id number]#1.00 TIFF Zackary Barros [facility] Ambulatory Visit Summaryon 0 10-05-2023 Ambulatory Visit Summary GIA RUZI :1950 Visit Date:10/05/2023 Ambulatory Visit Instructions Your [...] MOSLEY, Bertha Vu Where: [facility] [address] [id number] \.br\ Medications\.br\ What How Much When Instructions\.br [...] 10-05-2023 Auth for Release of Medical Records [id number]#1.0 0TIFF Normal [facility] Consultation Noteon 10-05-19 Consultation Note [id number]#1.0 0TIFF Normal [facility] Family Medicine Office/Clini c Noteon 10-05-2023 Family Medicine Office/Clinic Note HPI Staff Gia is a 73 year old female presenting for Surgical Clearance Pt having left knee surgery on 10/22/[address] Cárdenas Pt had pre surgical testing done last week at [facility], did blood work, urine, test, ekg sent records request for labs to [facility] History of Present Illness pt presents today [...] virus vaccine, inactivated 04/21/2022 Recorded SARS-CoV-2 (COVID-19) [id number] 04/21/2022 Recorded influenza virus vaccine, inactivated 03/15/2021 Recorded SARS-CoV-2 (COVID-19) mRNA BNT-162b2 vax 03/15/2021 Recorded 2022-09-17: [id number] SARS-CoV-2 (COVID-19) mRNA BNT-162b2 vax 08/08/2020 Given SARS-CoV-2 (COVID-19) mRNA BNT-162b2 vax 07/11/2020 Given zoster vaccine, inactivated 07/01/2019 Recorded zoster vaccine, inactivated 04/30/2019 Recorded influenza virus vaccine, inactivated 04/30/2019 Recorded Normal [facility] Comment on above: Result Comment: Elec tronically Signed By: Bambi Reynolds\.br\Date and Time Signed: 10/05/23 11:37 EDT Lab Reportson 10-05-2023 Lab Reports [id number]#1.00 TIFF Normal [facility] Provider Letteron 10-05-2023 Provider Letter [address] [place], [place] [id number] October 05, 2023 GIA RUIZ [address] [place] [address] : [address] Cárdenas, The above [...] [facility]-Leadon 10-02-2023 ECG 12-Lead [id number]#1.00 TIFF Normal [facility] Activated partial thrombopla stin time (aPTT) in platelet poor plasma by coagulation aOrdered By: Rosalinda Bernstein on 09-30-2023 aPTT Coag (PPP) [Time] 35.6 s 25.1-36.5 [facility] Comment on above: A hematocrit value g reater than 55% may lead to inaccurate results in coagulation testing. Patients having hematocrit values >55% require a special collection tube for coagulation studies. Please contact the laboratory at [phone] for redraw instructions. Alanine aminotransferase [En zymatic activity/volume] in Serum or PlasmaOrdered By: Rosalinda Bernstein on 09-30-2023 ALT [Catalytic activity/Vol] 17 U/L 7-52 [facility] Albumin [Mass/volume] in Ser um or Plasma by Bromocresol green (BCG) dye binding methoOrdered By: Rosalinda Bernstein on 09-30-2023 Albumin BCG dye [Mass/Vol] 4.2 g/dL 3.5-5.7 [facility] Alkaline phosphatase [Enzyma tic activity/volume] in Serum or PlasmaOrdered By: Rosalinda Bernstein on 09-30-2023 ALP [Catalytic activity/Vol] 46 U/L 34-104 [facility] Aspartate aminotransferase [ Enzymatic activity/volume] in Serum or PlasmaOrdered By: Rosalinda Bernstein on 09-30-2023 AST [Catalytic activity/Vol] 14 U/L 13-39 [facility] Basophils Auto (Bld) [#/Vol] Ordered By: Rosalinda Bernstein on 09-30-2023 Basophils (Bld) [#/Vol] 0.1 10*3/uL 0.0-0.2 [facility] Basophils/100 WBC Auto (Bld) Ordered By: Rosalinda Bernstein on 09-30-2023 Basophils/100 WBC (Bld) 0.8 % . [facility] Bilirubin Test strip Ql (U)O rdered By: Rosalinda Bernstein on 09-30-2023 Bilirubin Ql (U) Negative Negative [facility] Bilirubin.total [Mass/volume ] in Serum or PlasmaOrdered By: Rosalinda Bernstein on 09-30-2023 Bilirubin [Mass/Vol] 0.4 mg/dL 0.3-1.0 [facility] Calcium [Mass/volume] in Ser um or PlasmaOrdered By: Rosalinda Bernstein on 09-30-2023 Calcium [Mass/Vol] 9.3 mg/dL 8.6-10.3 [facility] Carbon dioxide, total [Moles /volume] in Serum or PlasmaOrdered By: Rosalinda Bernstein on 09-30-2023 CO2 [Moles/Vol] 28.2 mmol/L 21.0-31.0 [facility] Chloride [Moles/volume] in S soni or PlasmaOrdered By: Rosalinda Bernstein on 09-30-2023 Chloride [Moles/Vol] 95 mmol/L 98-107 [facility] Color Auto (U)Ordered By: Vasyl kulkarnibolivarluli Bernstein on 09-30-2023 Color (U) Yellow Yellow [facility] Creatinine [Mass/volume] in Serum or PlasmaOrdered By: Rosalinda Bernstein on 09-30-2023 Creatinine [Mass/Vol] 0.70 mg/dL 0.60-1.20 [facility] Eosinophils Auto (Bld) [#/Vo l]Ordered By: Rosalinda Bernstein on 09-30-2023 Eosinophils (Bld) [#/Vol] 0.2 10*3/uL 0.0-0.45 [facility] Eosinophils/100 WBC Auto (Bl d)Ordered By: Rosalinda Bernstein on 09-30-2023 Eosinophils/100 WBC (Bld) 3.1 % . [facility] Erythrocyte distribution wid th Auto (RBC) [Ratio]Ordered By: Rosalinda Bernstein on 09-30-2023 Erythrocyte distribution width (RBC) [Ratio] 13.2 % 11.9-15.3 [facility] Globulin Calc (S) [Mass/Vol] Ordered By: Rosalinda Bernstein on 09-30-2023 Globulin (S) [Mass/Vol] 3.5 g/dL [facility] Glucose [Mass/volume] in Ser um or PlasmaOrdered By: Rosalinda Bernstein on 09-30-2023 Glucose [Mass/Vol] 80 mg/dL 70-100 [facility] Comment on above: ADA recommended refe rence rangeRandom Glucose Reference Range is dependent on time and content of last meal. Glucose of more than 200 mg/dL in a nonstressed, ambulatory subject supports the diagnosis of Diabetes Mellitus. Glucose mean value [Mass/vol ume] in Blood Estimated from glycated hemoglobinOrdered By: Rosalinda Bernstein on 09-30-2023 Average glucose Estimated from glycated hemoglobin (Bld) [Mass/Vol] 120 mg/dL [facility] Hematocrit Auto (Bld) [Volum e fraction]Ordered By: Rosalinda Bernstein on 09-30-2023 Hematocrit (Bld) [Volume fraction] 38.1 % 34.0-46.4 [facility] Hemoglobin A1c percentageOrd ered By: Rosalinda Bernstein on 09-30-2023 HbA1c (Bld) [Mass fraction] 5.8 % 4.3-5.6 [facility] Comment on above: Increased risk for d iabetes: 5.7 - 6.4diabetes: >6.4glycemic control for adults with diabetes: <7.0 Hemoglobin [Mass/volume] in BloodOrdered By: Rosalinda Bernstein on 09-30-2023 Hemoglobin (Bld) [Mass/Vol] 12.9 g/dL 11.8-15.4 [facility] INR in Platelet poor plasma by Coagulation assayOrdered By: Rosalinda Bernstein on 09-30-2023 INR Coag (PPP) [Relative time] 1.0 {INR} [facility] Comment on above: INR Therapeutic [...] on 09-30-2023 Ketones (U) [Mass/Vol] Negative Negative [facility] Leukocytes [#/volume] correc lisa for nucleated erythrocytes in Blood by Automated counOrdered By: Rosalinda Bernstein on 09-30-2023 WBC corrected for nucl RBC Auto (Bld) [#/Vol] 7.3 10*3/uL 3.8-11.6 [facility] Lymphocytes Auto (Bld) [#/Vo l]Ordered By: Rosalinda Bernstein on 09-30-2023 Lymphocytes (Bld) [#/Vol] 3.6 10*3/uL 1.00-4.8 [facility] Lymphocytes/100 WBC Auto (Bl d)Ordered By: Rosalinda Bernstein on 09-30-2023 Lymphocytes/100 WBC (Bld) 49.4 % . [facility] MCH Auto (RBC) [Entitic mass ]Ordered By: Rosalinda Bernstein on 09-30-2023 MCH (RBC) [Entitic mass] 29.7 pg 24.7-34.3 [facility] MCHC Auto (RBC) [Mass/Vol]Or dered By: Rosalinda Bernstein on 09-30-2023 MCHC (RBC) [Mass/Vol] 33.9 g/dL 32.0-35.0 [facility] MCV Auto (RBC) [Entitic vol] Ordered By: Rosalinda Bernstein on 09-30-2023 MCV (RBC) [Entitic vol] 87.5 fL 80-100 [facility] Monocytes Auto (Bld) [#/Vol] Ordered By: Rosalinda Bernstein on 09-30-2023 Monocytes (Bld) [#/Vol] 0.5 10*3/uL 0.0-0.8 [facility] Monocytes/100 WBC Auto (Bld) Ordered By: Rosalinda Bernstein on 09-30-2023 Monocytes/100 WBC (Bld) 7.4 % . [facility] Neutrophils Auto (Bld) [#/Vo l]Ordered By: Rosalinda Bernstein on 09-30-2023 Neutrophils (Bld) [#/Vol] 2.9 10*3/uL 1.8-7.7 [facility] Neutrophils/100 WBC Auto (Bl d)Ordered By: Rosalinda Bernstein on 09-30-2023 Neutrophils/100 WBC (Bld) 39.3 % . [facility] Nitrite Test strip Ql (U)Ord ered By: Rosalinda Bernstein on 09-30-2023 Nitrite Ql (U) Negative Negative [facility] No Panel InformationOrdered By: Rosalinda Bernstein on 09-30-2023 Estimated GFR (CKD-EPI) > 60.0 mL/Min [facility] Creatinine Clearance (Chem N/A [facility] Nucleated erythrocytes [Pres ence] in Blood by Automated countOrdered By: Rosalinda Bernstein on 09-30-2023 Nucleated RBC Auto Ql (Bld) 0.1 /100{WBC} 0-0.5 [facility] Platelet mean volume Auto (B ld) [Entitic vol]Ordered By: Rosalinda Bernstein on 09-30-2023 Platelet mean volume (Bld) [Entitic vol] 7.0 fL 6.3-10.7 [facility] Platelets Auto (Bld) [#/Vol] Ordered By: Rosalinda Bernstein on 09-30-2023 Platelets (Bld) [#/Vol] 320 10*3/uL 150-450 [facility] Potassium [Moles/volume] in Serum or PlasmaOrdered By: Rosalinda Bernstein on 09-30-2023 Potassium [Moles/Vol] 4.2 mmol/L 3.5-5.1 [facility] Protein Auto test strip (U) [Mass/Vol]Ordered By: Rosalinda Bernstein on 09-30-2023 Protein (U) [Mass/Vol] Negative Negative [facility] Protein [Mass/volume] in Ser um or PlasmaOrdered By: Rosalinda Bernstein on 09-30-2023 Protein [Mass/Vol] 7.7 g/dL 6.4-8.9 [facility] Prothrombin time (PT)Ordered By: Rosalinda Bernstein on 09-30-2023 PT Coag (PPP) [Time] 11.1 s 9.0-12.9 [facility] Comment on above: A hematocrit value g reater than 55% may lead to inaccurate results in coagulation testing. Patients having hematocrit values >55% require a special collection tube for coagulation studies. Please contact the laboratory at [phone] for redraw instructions. RBC Auto (Bld) [#/Vol]Ordere d By: Rosalinda Bernstein on 09-30-2023 RBC (Bld) [#/Vol] 4.35 10*6/uL 3.60-5.00 [facility] Serum or plasma albumin/glob ulin mass ratioOrdered By: Rosalinda Bernstein on 09-30-2023 Albumin/Globulin [Mass ratio] 1.2 {ratio} [facility] Serum or plasma anion gap de terminationOrdered By: Rosalinda Bernstein on 09-30-2023 Anion gap [Moles/Vol] 12.0 mmol/L 6.0-15.0 [facility] Sodium [Moles/volume] in Ser um or PlasmaOrdered By: Rosalinda Bernstein on 09-30-2023 Sodium [Moles/Vol] 131 mmol/L 136-145 [facility] Specific gravity Auto test s trip (U) [Rel density]Ordered By: Rosalinda Bernstein on 09-30-2023 Specific gravity (U) [Rel density] 1.006 1.001-1.030 [facility] Urea nitrogen [Mass/volume] in Serum or PlasmaOrdered By: Rosalinda Bernstein on 09-30-2023 Urea nitrogen [Mass/Vol] 9 mg/dL 7-25 [facility] Urine clarity by refractomet ry automatedOrdered By: Rosalinad Bernstein on 09-30-2023 Clarity Refractometry automated (U) Clear Clear [facility] Urine glucose measurement by automated test strip (mass/volume)Ordered By: Rosalinda Bernstein on 09-30-2023 Glucose Auto test strip (U) [Mass/Vol] Normal mg/dL Normal [facility] Urine hemoglobin detection b y automated test stripOrdered By: Rosalinda Bernstein on 09-30-2023 Hemoglobin Auto test strip Ql (U) Negative Negative [facility] Urine leukocyte esterase det ection by automated test stripOrdered By: Rosalinda Bernstein on 09-30-2023 Leukocyte esterase Auto test strip Ql (U) Negative Negative [facility] Urobilinogen Auto test strip (U) [Mass/Vol]Ordered By: Rosalinda Bernstein on 09-30-2023 Urobilinogen (U) [Mass/Vol] Normal mg/dL Normal [facility] WBC Auto (Bld) [#/Vol]Ordere d By: Rosalinda Bernstein on 09-30-2023 WBC (Bld) [#/Vol] 7.3 10*3/uL 3.8-11.6 [facility] pH Auto test strip (U)Ordere d By: Rosalinda Bernstein on 09-30-2023 pH (U) 7.0 [pH] 5.0-9.0 [facility] Ambulatory Visit Summaryon 0 09-14-2023 [...] 11:20 AM EDT With: Bambi Reynolds Where: [facility] Invalid Interpretation Code [address] [place] [address]- \.br\ 2023 1:00 PM EST \.br\ With:\.br\ Where: [facility] Consultation Noteon 09-09-19 Consultation Note [id number]#1.0 0TIFF Normal [facility] Consultation Noteon 09-04-19 Consultation Note [id number]#1.0 0TIFF Normal [facility] Ambulatory Visit [...] AM EDT With: Where: [facility] Invalid Interpretation Code [address] [place] [address]- \.br\ 2023 1:00 PM EST \.br\ With:\.br\ Where: [facility] Family Medicine Office/Clini c Noteon 08-26-2023 Family Medicine Office/Clinic Note HPI Staff Gia is a 73 year old female presenting to discuss medication pt wanting to discuss monjaro A1c: 07/21/23 5.9 pt has been seeing Dr young in [place] for weight loss had been taking Phentermine [...] Daily, # 90 tab(s), Refills(s) 1, Pharmacy: [facility], 159, cm, 05/13/23 14:24:00 EST, Height/Length Dosing, 95.1, kg, 05/13/23 14:24:00 EST, Weight Dosing atorvastatin, 20 mg = 1 tab(s), Oral, Daily, X 90 day(s), # 90 tab(s), Refills(s) 3, Pharmacy: [facility], 158, cm, 08/26/23 10:12:00 EDT, Height/Length Dosing, 97.5, kg, 08/26/23 10:12:00 EDT, Weight Dosing levothyroxine, 125 mcg = 1 tab(s), Oral, Daily, # 7 tab(s), Refills(s) 0, Pharmacy: [facility]/pharmacy #[id number], 159, cm, 05/13/23 14:24:00 EST, Height/Length [...] virus vaccine, inactivated 04/21/2022 Recorded SARS-CoV-2 (COVID-19) [id number].[id number] 04/21/2022 Recorded influenza virus vaccine, inactivated 03/15/2021 Recorded SARS-CoV-2 (COVID-19) mRNA BNT-162b2 vax 03/15/2021 Recorded (more content not included)... Normal [facility] [...] AM EDT With: Where: [facility] Invalid Interpretation Code [address] [place] [address]- \.br\ Thursday 1:00 PM EST \.br\ With:\.br\ Where: [facility] Patient Education 08-17-19 Patient Education Obstetrics and [...] these instructions at home: Medicines ? Take ralg-bnu-rnkxwpn and prescription medicines only as told by [...] provider. Document Revised: 01/23/2021 Document Reviewed: 01/23/2021 [employer] Patient Education ? 2022 [employer]. [facility] Urology Office/Clinic Noteon 08-17-2023 Urology [...] [facility] [address], [place] [id number] [phone] Additional Instructions: 6 mos w/ KUB and [...] 12:32 EDT Consultation Noteon 08-14-19 Consultation Note [id number]#1.0 0TIFF Normal [facility] Basophils Auto (Bld) [#/Vol] Ordered By: Cesar Estrada on 08-13-2023 Basophils (Bld) [#/Vol] 0.1 10*3/uL 0.0-0.2 [facility] Basophils/100 WBC Auto (Bld) Ordered By: Cesar Estrada on 08-13-2023 Basophils/100 WBC (Bld) 0.8 % . [facility] C reactive protein [Mass/vol ume] in Serum or PlasmaOrdered By: Cesar Estrada on 08-13-2023 CRP [Mass/Vol] < 0.5 mg/dL 0.0-0.5 [facility] Eosinophils Auto (Bld) [#/Vo l]Ordered By: Cesar Estrada on 08-13-2023 Eosinophils (Bld) [#/Vol] 0.3 10*3/uL 0.0-0.45 [facility] Eosinophils/100 WBC Auto (Bl d)Ordered By: Cesar Estrada on 08-13-2023 Eosinophils/100 WBC (Bld) 3.2 % . [facility] Erythrocyte distribution wid th Auto (RBC) [Ratio]Ordered By: Cesar Estrada on 08-13-2023 Erythrocyte distribution width (RBC) [Ratio] 13.8 % 11.9-15.3 [facility] Hematocrit Auto (Bld) [Volum e fraction]Ordered By: Cesar Estrada on 08-13-2023 Hematocrit (Bld) [Volume fraction] 36.9 % 34.0-46.4 [facility] Hemoglobin [Mass/volume] in BloodOrdered By: Cesar Estrada on 08-13-2023 Hemoglobin (Bld) [Mass/Vol] 12.2 g/dL 11.8-15.4 [facility] Leukocytes [#/volume] correc lisa for nucleated erythrocytes in Blood by Automated counOrdered By: Cesar Estrada on 08-13-2023 WBC corrected for nucl RBC Auto (Bld) [#/Vol] 8.5 10*3/uL 3.8-11.6 [facility] Lymphocytes Auto (Bld) [#/Vo l]Ordered By: Cesar Estrada on 08-13-2023 Lymphocytes (Bld) [#/Vol] 3.3 10*3/uL 1.00-4.8 [facility] Lymphocytes/100 WBC Auto (Bl d)Ordered By: Cesar Estrada on 08-13-2023 Lymphocytes/100 WBC (Bld) 38.8 % . [facility] MCH Auto (RBC) [Entitic mass ]Ordered By: Cesar Estrada on 08-13-2023 MCH (RBC) [Entitic mass] 29.4 pg 24.7-34.3 [facility] MCHC Auto (RBC) [Mass/Vol]Or dered By: Cesar Estrada on 08-13-2023 MCHC (RBC) [Mass/Vol] 33.1 g/dL 32.0-35.0 [facility] MCV Auto (RBC) [Entitic vol] Ordered By: Cesar Estrada on 08-13-2023 MCV (RBC) [Entitic vol] 88.8 fL 80-100 [facility] Monocytes Auto (Bld) [#/Vol] Ordered By: Cesar Estrada on 08-13-2023 Monocytes (Bld) [#/Vol] 0.8 10*3/uL 0.0-0.8 [facility] Monocytes/100 WBC Auto (Bld) Ordered By: Cesar Estrada on 08-13-2023 Monocytes/100 WBC (Bld) 9.8 % . [facility] Neutrophils Auto (Bld) [#/Vo l]Ordered By: Cesar Estrada on 08-13-2023 Neutrophils (Bld) [#/Vol] 4.0 10*3/uL 1.8-7.7 [facility] Neutrophils/100 WBC Auto (Bl d)Ordered By: Cesar Estrada on 08-13-2023 Neutrophils/100 WBC (Bld) 47.4 % . [facility] Nucleated erythrocytes [Pres ence] in Blood by Automated countOrdered By: Cesar Estrada on 08-13-2023 Nucleated RBC Auto Ql (Bld) 0.1 /100{WBC} 0-0.5 [facility] Platelet mean volume Auto (B ld) [Entitic vol]Ordered By: Cesar Estrada on 08-13-2023 Platelet mean volume (Bld) [Entitic vol] 6.8 fL 6.3-10.7 [facility] Platelets Auto (Bld) [#/Vol] Ordered By: Cesar Estrada on 08-13-2023 Platelets (Bld) [#/Vol] 309 10*3/uL 150-450 [facility] RBC Auto (Bld) [#/Vol]Ordere d By: Cesar Estrada on 08-13-2023 RBC (Bld) [#/Vol] 4.16 10*6/uL 3.60-5.00 [facility] WBC Auto (Bld) [#/Vol]Ordere d By: Cesar Estrada on 08-13-2023 WBC (Bld) [#/Vol] 8.5 10*3/uL 3.8-11.6 [facility] Outside Diabetes Eye Examon 08-06-2023 Outside Diabetes Eye Exam [id number]#1.0 0TIFF Normal [facility] Consultation Noteon 06-11-19 Consultation Note [id number]#1.0 0TIFF Normal [facility] CHEMISTRYOrdered By: [...] Estrada on 03-31-2023 Glucose [Mass/Vol] 96 mg/dL [facility] Comment on above: Random Glucose Refer ence Range is dependent on time and content of last meal. Glucose of more than 200 mg/dL in a nonstressed, ambulatory subject supports the diagnosis of Diabetes Mellitus. Glucose Glucometer (BldC) [M ass/Vol]Ordered By: Cesar Estrada on 03-12-2023 Glucose [Mass/Vol] 94 mg/dL [facility] Comment on above: Random Glucose Refer ence Range is dependent on time and content of last meal. Glucose of more than 200 mg/dL in a nonstressed, ambulatory subject supports the diagnosis of Diabetes Mellitus. Basophils Auto (Bld) [#/Vol] Ordered By: Adriana Cárdenas on 11-24-2022 Basophils (Bld) [#/Vol] 0.1 10*3/uL 0.0-0.2 [facility] Basophils/100 WBC Auto (Bld) Ordered By: Adriana Cárdenas on 11-24-2022 Basophils/100 WBC (Bld) 1.3 % . [facility] Bilirubin Test strip Ql (U)O rdered By: Adriana Cárdenas on 11-24-2022 Bilirubin Ql (U) Negative Negative [facility] Calcium [Mass/volume] in Ser um or PlasmaOrdered By: Adriana Cárdenas on 11-24-2022 Calcium [Mass/Vol] 9.4 mg/dL 8.6-10.3 [facility] Carbon dioxide, total [Moles /volume] in Serum or PlasmaOrdered By: Adriana Cárdenas on 11-24-2022 CO2 [Moles/Vol] 31.1 mmol/L 21.0-31.0 [facility] Chloride [Moles/volume] in S soni or PlasmaOrdered By: Adriana Cárdenas on 11-24-2022 Chloride [Moles/Vol] 95 mmol/L 98-107 [facility] Color Auto (U)Ordered By: Darien Cárdenas on 11-24-2022 Color (U) Yellow Yellow [facility] Creatinine [Mass/volume] in Serum or PlasmaOrdered By: Adriana Cárdenas on 11-24-2022 Creatinine [Mass/Vol] 0.68 mg/dL 0.60-1.20 [facility] Eosinophils Auto (Bld) [#/Vo l]Ordered By: Adriana Cárdenas on 11-24-2022 Eosinophils (Bld) [#/Vol] 0.3 10*3/uL 0.0-0.45 [facility] Eosinophils/100 WBC Auto (Bl d)Ordered By: Adriana Cárdenas on 11-24-2022 Eosinophils/100 WBC (Bld) 4.1 % . [facility] Erythrocyte distribution wid th Auto (RBC) [Ratio]Ordered By: Adriana Cárdenas on 11-24-2022 Erythrocyte distribution width (RBC) [Ratio] 13.0 % 11.9-15.3 [facility] Glucose [Mass/volume] in Ser um or PlasmaOrdered By: Adriana Cárdenas on 11-24-2022 Glucose [Mass/Vol] 94 mg/dL 70-100 [facility] Comment on above: ADA recommended refe rence rangeRandom Glucose Reference Range is dependent on time and content of last meal. Glucose of more than 200 mg/dL in a nonstressed, ambulatory subject supports the diagnosis of Diabetes Mellitus. Glucose mean value [Mass/vol ume] in Blood Estimated from glycated hemoglobinOrdered By: Adriana Cárdenas on 11-24-2022 Average glucose Estimated from glycated hemoglobin (Bld) [Mass/Vol] 126 mg/dL [facility] Hematocrit Auto (Bld) [Volum e fraction]Ordered By: Adriana Cárdenas on 11-24-2022 Hematocrit (Bld) [Volume fraction] 36.8 % 34.0-46.4 [facility] Hemoglobin A1c percentageOrd ered By: Adriana Cárdenas on 11-24-2022 HbA1c (Bld) [Mass fraction] 6.0 % 4.3-5.6 [facility] Comment on above: Increased risk for d iabetes: 5.7 - 6.4diabetes: >6.4glycemic control for adults with diabetes: <7.0 Hemoglobin [Mass/volume] in BloodOrdered By: Adriana Cárdenas on 11-24-2022 Hemoglobin (Bld) [Mass/Vol] 12.5 g/dL 11.8-15.4 [facility] Ketones Auto test strip (U) [Mass/Vol]Ordered By: Adriana Cárdenas on 11-24-2022 Ketones (U) [Mass/Vol] Negative Negative [facility] Leukocytes [#/volume] correc lisa for nucleated erythrocytes in Blood by Automated counOrdered By: Adriana Cárdenas on 11-24-2022 WBC corrected for nucl RBC Auto (Bld) [#/Vol] 7.7 10*3/uL 3.8-11.6 [facility] Lymphocytes Auto (Bld) [#/Vo l]Ordered By: Adriana Cárdenas on 11-24-2022 Lymphocytes (Bld) [#/Vol] 2.6 10*3/uL 1.00-4.8 [facility] Lymphocytes/100 WBC Auto (Bl d)Ordered By: Adriana Cárdenas on 11-24-2022 Lymphocytes/100 WBC (Bld) 34.2 % . [facility] MCH Auto (RBC) [Entitic mass ]Ordered By: Adriana Cárdenas on 11-24-2022 MCH (RBC) [Entitic mass] 29.8 pg 24.7-34.3 [facility] MCHC Auto (RBC) [Mass/Vol]Or dered By: Adriana Cárdenas on 11-24-2022 MCHC (RBC) [Mass/Vol] 33.9 g/dL 32.0-35.0 [facility] MCV Auto (RBC) [Entitic vol] Ordered By: Adriana Cárdenas on 11-24-2022 MCV (RBC) [Entitic vol] 87.8 fL 80-100 [facility] Monocytes Auto (Bld) [#/Vol] Ordered By: Adriana Cárdenas on 11-24-2022 Monocytes (Bld) [#/Vol] 1.0 10*3/uL 0.0-0.8 [facility] Monocytes/100 WBC Auto (Bld) Ordered By: Adriana Cárdenas on 11-24-2022 Monocytes/100 WBC (Bld) 12.4 % . [facility] Neutrophils Auto (Bld) [#/Vo l]Ordered By: Adriana Cárdenas on 11-24-2022 Neutrophils (Bld) [#/Vol] 3.7 10*3/uL 1.8-7.7 [facility] Neutrophils/100 WBC Auto (Bl d)Ordered By: Adriana Cárdenas on 11-24-2022 Neutrophils/100 WBC (Bld) 48.0 % . [facility] Nitrite Test strip Ql (U)Ord ered By: Adriana Cárdenas on 11-24-2022 Nitrite Ql (U) Negative Negative [facility] No Panel InformationOrdered By: Adriana Cárdenas on 11-24-2022 Estimated GFR (CKD-EPI) > 60.0 mL/Min [facility] Creatinine Clearance (Chem N/A [facility] Nucleated erythrocytes [Pres ence] in Blood by Automated countOrdered By: Adriana Cárdenas on 11-24-2022 Nucleated RBC Auto Ql (Bld) 0.1 /100{WBC} 0-0.5 [facility] Platelet mean volume Auto (B ld) [Entitic vol]Ordered By: Adriana Cárdenas on 11-24-2022 Platelet mean volume (Bld) [Entitic vol] 6.9 fL 6.3-10.7 [facility] Platelets Auto (Bld) [#/Vol] Ordered By: Adriana Cárdenas on 11-24-2022 Platelets (Bld) [#/Vol] 305 10*3/uL 150-450 [facility] Potassium [Moles/volume] in Serum or PlasmaOrdered By: Adriana Cárdenas on 11-24-2022 Potassium [Moles/Vol] 4.5 mmol/L 3.5-5.1 [facility] Protein Auto test strip (U) [Mass/Vol]Ordered By: Adriana Cárdenas on 11-24-2022 Protein (U) [Mass/Vol] Negative Negative [facility] RBC Auto (Bld) [#/Vol]Ordere d By: Adriana Cárdenas on 11-24-2022 RBC (Bld) [#/Vol] 4.19 10*6/uL 3.60-5.00 [facility] Serum or plasma anion gap de terminationOrdered By: Adriana Cárdenas on 11-24-2022 Anion gap [Moles/Vol] 9.4 mmol/L 6.0-15.0 [facility] Sodium [Moles/volume] in Ser um or PlasmaOrdered By: Adriana Cárdenas on 11-24-2022 Sodium [Moles/Vol] 131 mmol/L 136-145 [facility] Specific gravity Auto test s trip (U) [Rel density]Ordered By: Adriana Cárdenas on 11-24-2022 Specific gravity (U) [Rel density] 1.006 1.001-1.030 [facility] Urea nitrogen [Mass/volume] in Serum or PlasmaOrdered By: Adriana Cárdenas on 11-24-2022 Urea nitrogen [Mass/Vol] 18 mg/dL 7-25 [facility] Urine clarity by refractomet ry automatedOrdered By: Adriana Cárdenas on 11-24-2022 Clarity Refractometry automated (U) Clear Clear [facility] Urine glucose measurement by automated test strip (mass/volume)Ordered By: Adriana Cárdenas on 11-24-2022 Glucose Auto test strip (U) [Mass/Vol] Normal mg/dL Normal [facility] Urine hemoglobin detection b y automated test stripOrdered By: Adriana Cárdenas on 11-24-2022 Hemoglobin Auto test strip Ql (U) Negative Negative [facility] Urine leukocyte esterase det ection by automated test stripOrdered By: Adriana Cárdenas on 11-24-2022 Leukocyte esterase Auto test strip Ql (U) Negative Negative [facility] Urobilinogen Auto test strip (U) [Mass/Vol]Ordered By: Adriana Cárdenas on 11-24-2022 Urobilinogen (U) [Mass/Vol] Normal mg/dL Normal [facility] WBC Auto (Bld) [#/Vol]Ordere d By: Adriana Cárdenas on 11-24-2022 WBC (Bld) [#/Vol] 7.7 10*3/uL 3.8-11.6 [facility] pH Auto test strip (U)Ordere d By: Adriana Cárdenas on 11-24-2022 pH (U) 7.0 [pH] 5.0-9.0 [facility] [address] ABD/PELVIS WO CONon 08-19 [...] by: NICOLE BONE Date: 2022-08-19 11:00 Normal [facility] XR DEXA BONE DENSITYon 08-19 XR [...] authenticated by: NICOLE BONE Date: 2022-08-19 09:19 [facility] PAP ACOG PANEL 2: 30 to 65on 08-18-2022 . . Normal [facility] Comment on above: Performed By: #### [id number] #### [facility] [address] [address] [address] Sol Friend Age Gdln ACOG Testing Comment Normal [facility] Comment on above: Result Comment: <21 or >65 or no age provided Performed By: #### [id number] #### [facility] [address] [address] [address] Sol Friend DIAGNOSIS: Comment Normal [facility] Comment on above: Result Comment: NEGA TIVE FOR INTRAEPITHELIAL LESION OR MALIGNANCY. CELLULAR CHANGES ASSOCIATED WITH ATROPHY AND INFLAMMATION ARE PRESENT. Performed By: #### [id number] #### [facility] [address] [address] [address] Sol Friend Methodology: Comment [facility] Comment on above: Result Comment: This liquid based ThinPrep(R) pap test was screened with the use of an image guided system. Performed By: #### [id number] #### [facility] [address] [address] [address] Sol Friedn Note: Comment [facility] Comment on above: Result Comment: The Pap smear is a screening test designed to aid in the detection of premalignant and malignant conditions of the uterine cervix. It is not a diagnostic procedure and should not be used as the sole means of detecting cervical cancer. Both false-positive and false-negative reports do occur. . Performed By: #### [id number] #### [facility] [address] [place] [address] Dr. Sol Friend Performed by: Comment Normal [facility] Comment on above: Result Comment: Aniket Covington, Head Counselor (ASCP) Performed By: #### [id number] #### [facility] [address] [place] [address] Dr. Sol Friend Specimen adequacy: Comment Normal [facility] Comment on above: Result Comment: Sati sfactory for evaluation. Endocervical component may not be distinguished in cases of atrophy. Areas of partially obscuring inflammatory exudate are present. Performed By: #### [id number] #### [facility] [address] [place] [address] Dr. Sol Friend XR KUB 1 VIEWon [...] by: NICOLE BONE Date: 2022-07-31 12:15 Normal [facility] US KIDNEYSon 07-22-2022 US KIDNEYS EXAM: [...] DOMINICK SONI Date: 2022-07-22 09:20 Normal [facility] US BLADDERon 06-12-2022 US BLADDER EXAM: [...] NOLAN JAY Date: 2022-06-12 14:44 Normal [facility] CULTURE URINEon 06-05-2022 CULTURE URINE Culture Observations : NO GROWTH. Normal [facility] Comment on above: Performed By: #### U RCX ####[facility] [address] [place], [place] [address]Tq. Sol Friend UA (CLEAN/CATCH) MICROSCOPIC IF INDICATEon 01-19-2023 Bilirubin Ql (U) Negative Normal NEGATIVE [facility] Comment on above: Performed By: #### DAVID PULLIAMICRO ####[facility] [address] [address]Dr[address] Sol Friend Clarity (U) CLEAR Normal CLEAR [facility] Comment on above: Performed By: #### Delia HINTON UMICRO ####[facility] [address] [address]Dr. Sol Friend Color (U) LT. YELLOW Normal YELLOW [facility] Comment on above: Performed By: #### DAVID PULLIAMICRO ####[facility] [address] [address]Dr. Sol Friend Glucose Ql (U) Negative Normal NEGATIVE [facility] Comment on above: Performed By: #### DAVID PULLIAMICRO ####[facility] [address] [place], [place] [address]Dr. Sol Friend Hemoglobin Ql (U) LARGE Abnormal NEGATIVE [facility] Comment on above: Performed By: #### DAVID PULLIAMICRO ####[facility] [address] [place], [place] [address]Dr. Sol Friend Ketones Ql (U) Negative Normal NEGATIVE [facility] Comment on above: Performed By: #### DAVID PULLIAMICRO ####[facility] [address] [address]Dr. Sol Friend LEUKOCYTES Negative Normal NEGATIVE [facility] Comment on above: Performed By: #### DAVID PULLIAMICRO ####[facility] [address] [address]Dr. Sol Friend Nitrite Ql (U) Negative Normal NEGATIVE [facility] Comment on above: Performed By: #### DAVID PULLIAMICRO ####[facility] [address] [address]Dr[address] Sol Friend pH (U) 7.0 [pH] Normal 5-9 [facility] Comment on above: Performed By: #### RADHA PULLIAMRO ####[facility] [address] [address]Dr. Sol Friend SPEC GRAVITY <=1.005 Abnormal 1.005-<=1.025 [facility] Comment on above: Performed By: #### MILAN PULLIAM ####[facility] [address] [address]Dr. Sol Friend UA PROTEIN Negative Normal NEGATIVE/ TRACE [facility] Comment on above: Performed By: #### MILAN PULLIAM ####[facility] [address] [address]Dr. Sol Friend UR MICRO IND INDICATED Normal [facility] Comment on above: Performed By: #### MILAN PULLIAM ####[facility] [address] [address]Dr. Sol Friend Urobilinogen Qn (U) 0.2 {Darrick'U}/dL Normal 0.2 - 1. 0 [facility] Comment on above: Performed By: #### MILAN PULLIAM ####[facility] [address] [address]Dr. Sol Friend URINE MICROSCOPIC ONLYon BACTERIA NONE SEEN Normal NONE SEEN [facility] Comment on above: Performed By: #### MILAN PULLIAM ####[facility] [address] [address]Dr. Sol Friend Bacteria identified Cx Nom (U) CX ALREADY ORDERED Normal [facility] Comment on above: Performed By: #### MILAN PULLIAM ####[facility] [address] [address]Dr. Sol Friend CAST NONE SEEN Normal NONE SEEN [facility] Comment on above: Performed By: #### MILAN PULLIAM ####[facility] [address] [address]Dr. Sol Friend Crystals LM Nom (Urine sed) NONE SEEN Normal NONE SEEN [facility] Comment on above: Performed By: #### MILAN PULLIAM ####[facility] [address] [place], [place] [address]Sj. Shakilajackie Friend Epithelial cells LM Ql (Urine sed) RARE Normal NONE SEEN /RARE [facility] Comment on above: Performed By: #### MILAN PULLIAM ####[facility] [address] [place], [place] [address]Pg. Sol Phuc MUCOUS NONE SEEN Normal NONE SEEN [facility] Comment on above: Performed By: #### MILAN PULLIAM ####[facility] [address] [place], [place] [address]Gq. Sol Friend RBC 2-5 Abnormal 0-2 [facility] Comment on above: Performed By: #### MILAN PULLIAM ####[facility] [address] [id number][address] Sol Friend WBC NONE SEEN Normal NONE SEEN [facility] Comment on above: Performed By: #### MILAN PULLIAM ####[facility] [address] [id number]. Shakilajackie Friend CULTURE URINEon 05-22-2022 CULTURE URINE [...] Trimethoprim/Sulfameth oxazole <=20 S F Normal [facility] Comment on above: Performed By: #### U RCX ####[facility] [address] [id number][address] Sol Friend UA RANDOMon 05-20-2022 Bilirubin Ql (U) Negative Normal NEGATIVE [facility] Comment on above: Performed By: #### U A #### [facility] [address] [place] [address] Dr. Sol Friend Clarity (U) CLEAR Normal CLEAR [facility] Comment on above: Performed By: #### U A #### [facility] [address] [place] [address] Dr. Sol Friend Color (U) LT. YELLOW Normal YELLOW [facility] Comment on above: Performed By: #### U A #### [facility] [address] [place] [address] Dr. Sol Friend Glucose Ql (U) Negative Normal NEGATIVE [facility] Comment on above: Performed By: #### U A #### [facility] [address] [place] [address] Dr. Sol Friend Hemoglobin Ql (U) Negative Normal NEGATIVE [facility] Comment on above: Performed By: #### U A #### [facility] [address] [place] [address] Dr. Sol Friend Ketones Ql (U) Negative Normal NEGATIVE [facility] Comment on above: Performed By: #### U A #### [facility] [address] [place] [address] Dr. Sol Friend LEUKOCYTES Negative Normal NEGATIVE [facility] Comment on above: Performed By: #### U A #### [facility] [address] [place] [address] Dr. Sol Friend Nitrite Ql (U) Positive Abnormal NEGATIVE [facility] Comment on above: Performed By: #### U A #### [facility] [address] [place] [address] Dr. Sol Friend pH (U) 6.5 [pH] Normal 5-9 [facility] Comment on above: Performed By: #### U A #### [facility] [address] [place] [address] Dr. Sol Friend SPEC GRAVITY <=1.005 Abnormal 1.005-<=1.025 [facility] Comment on above: Performed By: #### U A #### [facility] [address] [place] [address] Dr. Sol Friend UA PROTEIN Negative Normal NEGATIVE/ TRACE [facility] Comment on above: Performed By: #### U A #### [facility] [address] [place], [place] [address] Dr. Sol Friend Urobilinogen Qn (U) 0.2 {Darrick'U}/dL Normal 0.2 - 1. 0 [facility] Comment on above: Performed By: #### U A #### [facility] [address], [place] [address] Dr. Sol Friend MG MAMM SCREEN 3D CALOS CADon 05-16-2022 MG MAMM SCREEN 3D CALOS CAD Patient: GIA RUIZ Exam Date: 05/16/2022 : 1950 Gender:F Ordering : DR ROBERT FERREIRA . Admission #: [id number] Family : Order #: [id number] CLICK HERE TO VIEW EXAM RADIOLOGY REPORT [...] prostate cancer at age 71. LOCATION: [facility] BREAST COMPOSITION: Almost entirely fatty. FINDINGS: [...] MD on 05/16/2022 at 11:44 Normal [facility] Automated erythrocytes count in urine sediment (number/area)Ordered By: Adriana Cárdenas on 05-05-2022 RBC Auto (Urine sed) [#/Area] 0-1 [HPF] 0-4 [facility] Automated leukocytes count i n urine sediment (number/area)Ordered By: Adriana Cárdenas on 05-05-2022 WBC Auto (Urine sed) [#/Area] Innumerable [HPF] 0-4 [facility] Basophils Auto (Bld) [#/Vol] Ordered By: Adriana Cárdenas on 05-05-2022 Basophils (Bld) [#/Vol] 0.1 10*3/uL 0.0-0.2 [facility] Basophils/100 WBC Auto (Bld) Ordered By: Adriana Cárdenas on 05-05-2022 Basophils/100 WBC (Bld) 1.1 % . [facility] Bilirubin Test strip Ql (U)O rdered By: Adriana Cárdenas on 05-05-2022 Bilirubin Ql (U) Negative Negative [facility] Color Auto (U)Ordered By: Darien Cárdenas on 05-05-2022 Color (U) Yellow Yellow [facility] Creatinine and Glomerular fi ltration rate.predicted panel (S/P/Bld)Ordered By: Adriana Cárdenas on 05-05-2022 Creatinine [Mass/Vol] 0.71 mg/dL 0.44-1.03 [facility] Eosinophils Auto (Bld) [#/Vo l]Ordered By: Adriana Cárdenas on 05-05-2022 Eosinophils (Bld) [#/Vol] 0.2 10*3/uL 0.0-0.45 [facility] Eosinophils/100 WBC Auto (Bl d)Ordered By: Adriana Cárdenas on 05-05-2022 Eosinophils/100 WBC (Bld) 3.1 % . [facility] Erythrocyte distribution wid th Auto (RBC) [Ratio]Ordered By: Adriana Cárdenas on 05-05-2022 Erythrocyte distribution width (RBC) [Ratio] 13.8 % 11.9-15.3 [facility] Estimated glomerular filtrat ion rate (GFR) non- AmericanOrdered By: Adriana Cárdenas on 05-05-2022 GFR/1.73 sq M.predicted among non-blacks MDRD (S/P/Bld) [Vol rate/Area] > 60 mL/Min [facility] Glucose mean value [Mass/vol ume] in Blood Estimated from glycated hemoglobinOrdered By: Adriana Cárdenas on 05-05-2022 Average glucose Estimated from glycated hemoglobin (Bld) [Mass/Vol] 120 mg/dL [facility] Hematocrit Auto (Bld) [Volum e fraction]Ordered By: Adriana Cárdenas on 05-05-2022 Hematocrit (Bld) [Volume fraction] 37.1 % 34.0-46.4 [facility] Hemoglobin A1c percentageOrd ered By: Adriana Cárdenas on 05-05-2022 HbA1c (Bld) [Mass fraction] 5.8 % 4.3-5.6 [facility] Comment on above: Increased risk for d iabetes: 5.7 - 6.4diabetes: >6.4glycemic control for adults with diabetes: <7.0 Hemoglobin [Mass/volume] in BloodOrdered By: Adriana Cárdenas on 05-05-2022 Hemoglobin (Bld) [Mass/Vol] 12.3 g/dL 11.8-15.4 [facility] Ketones Auto test strip (U) [Mass/Vol]Ordered By: Adriana Cárdenas on 05-05-2022 Ketones (U) [Mass/Vol] Negative Negative [facility] Laboratory - UrinalysisOrder ed By: Adriana Cárdenas on 05-05-2022 Hyaline casts LM Ql (Urine sed) 0-8 [LPF] 0-8 [facility] Leukocytes [#/volume] correc lisa for nucleated erythrocytes in Blood by Automated counOrdered By: Adriana Cárdenas on 05-05-2022 WBC corrected for nucl RBC Auto (Bld) [#/Vol] 7.8 10*3/uL 3.8-11.6 [facility] Lymphocytes Auto (Bld) [#/Vo l]Ordered By: Adriana Cárdenas on 05-05-2022 Lymphocytes (Bld) [#/Vol] 2.7 10*3/uL 1.00-4.8 [facility] Lymphocytes/100 WBC Auto (Bl d)Ordered By: Adriana Cárdenas on 05-05-2022 Lymphocytes/100 WBC (Bld) 34.2 % . [facility] MCH Auto (RBC) [Entitic mass ]Ordered By: Adriana Cárdenas on 05-05-2022 MCH (RBC) [Entitic mass] 28.8 pg 24.7-34.3 [facility] MCHC Auto (RBC) [Mass/Vol]Or dered By: Adriana Cárdenas on 05-05-2022 MCHC (RBC) [Mass/Vol] 33.2 g/dL 32.0-35.0 [facility] MCV Auto (RBC) [Entitic vol] Ordered By: Adriana Cárdenas on 05-05-2022 MCV (RBC) [Entitic vol] 86.5 fL 80-100 [facility] Monocytes Auto (Bld) [#/Vol] Ordered By: Adriana Cárdenas on 05-05-2022 Monocytes (Bld) [#/Vol] 0.8 10*3/uL 0.0-0.8 [facility] Monocytes/100 WBC Auto (Bld) Ordered By: Adriana Cárdenas on 05-05-2022 Monocytes/100 WBC (Bld) 9.9 % . [facility] Neutrophils Auto (Bld) [#/Vo l]Ordered By: Adriana Cárdenas on 05-05-2022 Neutrophils (Bld) [#/Vol] 4.0 10*3/uL 1.8-7.7 [facility] Neutrophils/100 WBC Auto (Bl d)Ordered By: Adriana Cárdenas on 05-05-2022 Neutrophils/100 WBC (Bld) 51.7 % . [facility] Nitrite Test strip Ql (U)Ord ered By: Adriana Cárdenas on 05-05-2022 Nitrite Ql (U) Positive Negative [facility] No Panel InformationOrdered By: Adriana Cárdenas on 05-05-2022 Estimated GFR () > 60 mL/Min [facility] Comment on above: GFR estimated refere nce range: According to KDOQI guidelines, <60 ml/min/1.73m2 is sufficient to diagnose a patient with chronic kidney disease. Pharmacy Creatinine Clearance (Chem N/A [facility] Nucleated erythrocytes [Pres ence] in Blood by Automated countOrdered By: Adriana Cárdenas on 05-05-2022 Nucleated RBC Auto Ql (Bld) 0.1 /100{WBC} 0-0.5 [facility] Platelet mean volume Auto (B ld) [Entitic vol]Ordered By: Adriana Cárdenas on 05-05-2022 Platelet mean volume (Bld) [Entitic vol] 6.7 fL 6.3-10.7 [facility] Platelets Auto (Bld) [#/Vol] Ordered By: Adriana Cárdenas on 05-05-2022 Platelets (Bld) [#/Vol] 308 10*3/uL 150-450 [facility] Protein Auto test strip (U) [Mass/Vol]Ordered By: Adriana Cárdenas on 05-05-2022 Protein (U) [Mass/Vol] Negative Negative [facility] RBC Auto (Bld) [#/Vol]Ordere d By: Adriana Cárdenas on 05-05-2022 RBC (Bld) [#/Vol] 4.29 10*6/uL 3.60-5.00 [facility] Serum or plasma anion gap de terminationOrdered By: Adriana Cárdenas on 05-05-2022 Anion gap [Moles/Vol] 11.9 mmol/L 6.0-15.0 [facility] Serum or plasma calcium loretta urement (mass/volume)Ordered By: Adriana Cárdenas on 05-05-2022 Calcium [Mass/Vol] 9.1 mg/dL 8.2-10.2 [facility] Serum or plasma chloride roseanne surement (moles/volume)Ordered By: Adriana Cárdenas on 05-05-2022 Chloride [Moles/Vol] 100 mmol/L 95-114 [facility] Serum or plasma glucose loretta urement (mass/volume)Ordered By: Adriana Cárdenas on 05-05-2022 Glucose [Mass/Vol] 88 mg/dL 70-100 [facility] Comment on above: ADA recommended refe rence rangeRandom Glucose Reference Range is dependent on time and content of last meal. Glucose of more than 200 mg/dL in a nonstressed, ambulatory subject supports the diagnosis of Diabetes Mellitus. Serum or plasma potassium me asurement (moles/volume)Ordered By: Adriana Cárdenas on 05-05-2022 Potassium [Moles/Vol] 3.9 mmol/L 3.5-5.1 [facility] Serum or plasma sodium measu rement (moles/volume)Ordered By: Adriana Cárdenas on 05-05-2022 Sodium [Moles/Vol] 132 mmol/L 136-146 [facility] Serum or plasma total carbon dioxide measurement (moles/volume)Ordered By: Adriana Cárdenas on 05-05-2022 CO2 [Moles/Vol] 24.0 mmol/L 22.0-30.0 [facility] Serum or plasma urea nitroge n measurement (mass/volume)Ordered By: Adriana Cárdenas on 05-05-2022 Urea nitrogen [Mass/Vol] 18 mg/dL 9-23 [facility] Specific gravity Auto test s trip (U) [Rel density]Ordered By: Adriana Cárdenas on 05-05-2022 Specific gravity (U) [Rel density] 1.008 1.001-1.030 [facility] Squamous epithelial cells de tection in urine sediment by light microscopyOrdered By: Adriana Cárdenas on 05-05-2022 Epithelial cells.squamous LM Ql (Urine sed) None seen [HPF] 0-2 [facility] Urine bacteria detection by automated methodOrdered By: Adriana Cárdenas on 05-05-2022 Bacteria Auto Ql (U) None seen None Seen [facility] Urine clarity by refractomet ry automatedOrdered By: Adriana Cárdenas on 05-05-2022 Clarity Refractometry automated (U) Cloudy Clear [facility] Urine glucose measurement by automated test strip (mass/volume)Ordered By: Adriana Cárdenas on 05-05-2022 Glucose Auto test strip (U) [Mass/Vol] Normal mg/dL Normal [facility] Urine hemoglobin detection b y automated test stripOrdered By: Adriana Cárdenas on 05-05-2022 Hemoglobin Auto test strip Ql (U) Negative Negative [facility] Urine leukocyte esterase det ection by automated test stripOrdered By: Adriana Cárdenas on 05-05-2022 Leukocyte esterase Auto test strip Ql (U) 4+ Negative [facility] Urobilinogen Auto test strip (U) [Mass/Vol]Ordered By: Adriana Cárdenas on 05-05-2022 Urobilinogen (U) [Mass/Vol] Normal mg/dL Normal [facility] WBC Auto (Bld) [#/Vol]Ordere d By: Adriana Cárdenas on 05-05-2022 WBC (Bld) [#/Vol] 7.8 10*3/uL 3.8-11.6 [facility] pH Auto test strip (U)Ordere d By: Adriana Cárdenas on 05-05-2022 pH (U) 6.5 [pH] 5.0-9.0 [facility] ALBUMINon 01-10-2022 Albumin [Mass/Vol] 3.4 g/dL Normal 3.4-5.0 [facility] Comment on above: Performed By: #### A LB, BMP #### [facility] [address] [address] [address] Sol Friend CBC AUTO DIFFon 01-10-2022 BASO # 0.1 103/ul Normal 0.0-0.1 [facility] Comment on above: Performed By: #### C BC ####[facility] [address] [address]DrCarmen Friend Basophils/100 WBC (Bld) 1.0 % Normal 0.2-2.0 [facility] Comment on above: Performed By: #### C BC ####[facility] [address] [address]DrCarmen Friend EO # 0.3 103/ul Normal 0.0-0.7 [facility] Comment on above: Performed By: #### C BC ####[facility] [address] [id number]. Sol Friend Eosinophils/100 WBC (Bld) 3.9 % Normal 0.9-7.0 [facility] Comment on above: Performed By: #### C BC ####[facility] [address] [id number] Friend Erythrocyte distribution width (RBC) [Ratio] 13.1 % Normal 11.0-15.0 [facility] Comment on above: Performed By: #### C BC ####[facility] [address] [address]DrCarmen Friend Hematocrit (Bld) [Volume fraction] 38.6 % Normal 36.0-48.0 [facility] Comment on above: Performed By: #### C BC ####[facility] [address] [id number]. Sol Friend Hemoglobin (Bld) [Mass/Vol] 12.7 g/dL Normal 12.0-16.0 [facility] Comment on above: Performed By: #### C BC ####[facility] [address] [id number]. Sol Friend IG # 0.02 10e3/ul Normal 0.00-0.03 [facility] Comment on above: Performed By: #### C BC ####[facility] [address] [address]Dr. Sol Friend IG % 0.3 % Normal 0.0-0.5 [facility] Comment on above: Performed By: #### C BC ####[facility] [address] [address]Dr. Sol Friend LYMPH # 2.7 103/ul Normal 1.2-3.8 [facility] Comment on above: Performed By: #### C BC ####[facility] [address] [address]Dr. Sol Friend Lymphocytes/100 WBC (Bld) 34.1 % Normal 20.5-60.0 [facility] Comment on above: Performed By: #### C BC ####[facility] [address] [address]Dr. Sol Friend MANUAL DIFF REQ NO Normal [facility] Comment on above: Performed By: #### C BC ####[facility] [address] [place], [place] [address]Dr. Sol Friend MCH (RBC) [Entitic mass] 29.5 pg Normal 26.7-34.0 [facility] Comment on above: Performed By: #### C BC ####[facility] [address] [place], [place] [address]Dr. Sol Friend MCHC (RBC) [Mass/Vol] 32.9 g/dL Normal 29.9-35.2 [facility] Comment on above: Performed By: #### C BC ####[facility] [address] [id number]. Sol Friend MCV (RBC) [Entitic vol] 89.6 fL Normal 81.0-99.0 [facility] Comment on above: Performed By: #### C BC ####[facility] [address] [phone]. Sol Friend MONO # 0.8 103/ul Normal 0.3-0.8 [facility] Comment on above: Performed By: #### C BC ####[facility] [address] [phone]. Sol Friend Monocytes/100 WBC (Bld) 10.3 % Normal 1.7-12.0 [facility] Comment on above: Performed By: #### C BC ####[facility] [address] [phone]. Sol Friend NEUT # 4.0 103/ul Normal 1.4-6.5 [facility] Comment on above: Performed By: #### C BC ####[facility] [address] [place], [place] [address]Dr. Sol Friend Neutrophils/100 WBC (Bld) 50.4 % Normal 43.0-75.0 [facility] Comment on above: Performed By: #### C BC ####[facility] [address] [phone]. Sol Friend Platelet mean volume (Bld) [Entitic vol] 8.7 fL Critically low 9.5-13.5 [facility] Comment on above: Performed By: #### C BC ####[facility] [address] [phone]. Sol Friend PLT 285 103/ul Normal 150-450 [facility] Comment on above: Performed By: #### C BC ####[facility] [address] [phone]. Sol Friend RBC 4.31 106/ul Normal 4.20-5.40 [facility] Comment on above: Performed By: #### C BC ####[facility] [address] [phone]. Sol Friend WBC 7.9 103/ul Normal 4.0-11.0 [facility] Comment on above: Performed By: #### C BC ####[facility] [address] [id number] Friend MRSA NARES #1on 01-10-2022 MRSA NARES #1 Culture Observations : NO GROWTH OF MRSA AT 48 HOURS Normal [facility] Comment on above: Performed By: #### M RSAN1 ####[facility] [address] [phone]. Sol Friend PROF CHEM 8 (BAS METB)on Anion gap [Moles/Vol] 12.9 mmol/L Normal [facility] Comment on above: Performed By: #### A LB, BMP #### [facility] [address] [address] [address] Sol Friend Calcium [Mass/Vol] 8.8 mg/dL Normal 8.5-10.1 [facility] Comment on above: Performed By: #### A LB, BMP #### [facility] [address] [address] [address] oSl Friend Chloride [Moles/Vol] 93 mmol/L Critically low 98-107 [facility] Comment on above: Performed By: #### A LB, BMP #### [facility] [address] [address] [address] Sol Friend CO2 [Moles/Vol] 26.6 mmol/L Normal 21.0-32.0 [facility] Comment on above: Performed By: #### A LB, BMP #### [facility] [address] [address] [address] Sol Friend Creatinine [Mass/Vol] 0.75 mg/dL Normal 0.55-1.02 [facility] Comment on above: Performed By: #### A LB, BMP #### [facility] [address] [address] [address] Sol Friend EGFR-AF [place] >60 Normal >=60 [facility] Comment on above: Performed By: #### A LB, BMP #### [facility] [address] [place] [address] Dr. Sol Friend EGFR-NON AF [place] >60 Normal >=60 [facility] Comment on above: Performed By: #### A LB, BMP #### [facility] [address] [address] [address] Sol Friend Glucose [Mass/Vol] 87 mg/dL Normal 74-106 [facility] Comment on above: Performed By: #### A LB, BMP #### [facility] [address] [address] [address] Sol Friend Potassium [Moles/Vol] 3.5 mmol/L Normal 3.5-5.1 [facility] Comment on above: Performed By: #### A LB, BMP #### [facility] [address] [place] [address] Dr. Sol Friend Sodium [Moles/Vol] 129 mmol/L Critically low 136-145 [facility] Comment on above: Performed By: #### A LB, BMP #### [facility] [address] [place] [address] Dr. Sol Friend Urea nitrogen [Mass/Vol] 17.0 mg/dL Normal 7.0-18.0 [facility] Comment on above: Performed By: #### A LB, BMP #### [facility] [address] [place] [address] Dr. Sol Friend Urea nitrogen/Creatinine [Mass ratio] 22.7 mg/mg Normal [facility] Comment on above: Performed By: #### A LB, BMP #### [facility] [address] [place] [address] Dr. Sol Friend FREE T3on 10-03-2021 FREE T3 3.95 pg/mlL Normal 2.18-3.98 [facility] Comment on above: Performed By: #### T SH, FT3 #### [facility] [address] [place] [address] Dr. Sol Friend TSHon 10-03-2021 TSH 1.122 uIU/mL Normal 0.358-3.740 [facility] Comment on above: Performed By: #### T SH, FT3 #### [facility] [address] [place], [place] [address] Dr. Sol Friend TSH RANGE SEE BELOW Normal [facility] Comment on above: Result Comment: <0.3 4 UIU/ml HYPERTHYROID 0.34-5.60 UIU/ml EUTHYROID >5.60 UIU/ml HYPOTHYROID Performed By: #### T SH, FT3 #### [facility] [address] [address] [address] Sol Friend Vital Signs Date Time Vital Sign Value Performing Clinician Facility 02-07-2025 14:01-0400 Diastolic blood pressure 77 mm[Hg] Bambi Nam [employer] Work Phone: [facility] 02-07-2025 14:01-0400 Heart rate 65 /min Bambi Nam [employer] Work Phone: [facility] 02-07-2025 14:01-0400 Systolic blood pressure 146 mm[Hg] Bambi Nam [employer] Work Phone: [facility] 10-12-2024 15:40-0400 Body height 157.5 cm Lory Busch PA Work Phone: [facility] 10-12-2024 15:40-0400 Body mass index (BMI) [Ratio] 35.3 kg/m2 Lory Busch PA Work Phone: [facility] 10-12-2024 15:40-0400 Body weight 87.54 kg Lory Busch PA Work Phone: [facility] 10-12-2024 15:40-0400 Diastolic blood pressure 82 mm[Hg] Lory Busch PA Work Phone: [facility] 10-12-2024 15:40-0400 Heart rate 74 /min Lory Busch PA Work Phone: [facility] 10-12-2024 15:40-0400 Respiratory rate 16 /min Lory Busch PA Work Phone: [facility] 10-12-2024 15:40-0400 SaO2% (BldA) [Mass fraction] 98 % Lory ISAAC Work Phone: [facility] 10-12-2024 15:40-0400 Systolic blood pressure 124 mm[Hg] Lory ISAAC Work Phone: [facility] 08-22-2024 13:26-0400 Body mass index (BMI) [Ratio] 35.03 kg/m2 Robert Jhon DO Work Phone: [facility] 08-22-2024 13:26-0400 Body weight 86.86 kg Robert Jhon DO Work Phone: [facility] 08-22-2024 13:26-0400 Diastolic blood pressure 76 mm[Hg] Robert Jhon DO Work Phone: [facility] 08-22-2024 13:26-0400 Systolic blood pressure 132 mm[Hg] Robert Jhon DO Work Phone: [facility] 08-15-2024 10:58-0400 Body height 154.94 cm [facility] 08-15-2024 10:58-0400 Body mass index (BMI) [Ratio] 35.3 kg/m2 [facility] 08-15-2024 10:58-0400 Body weight 84.82 kg [facility] 08-15-2024 10:58-0400 Diastolic blood pressure 76 mm[Hg] [facility] 08-15-2024 10:58-0400 Heart rate 75 /min [facility] 08-15-2024 10:58-0400 Systolic blood pressure 122 mm[Hg] [facility] 07-20-2024 13:31-0500 Body height 157.5 cm Kevin Latoniajusticek DO Work Phone: [facility] 07-20-2024 13:31-0500 Body mass index (BMI) [Ratio] 33.84 kg/m2 Kevin Murcek DO Work Phone: [facility] 07-20-2024 13:31-0500 Body weight 83.92 kg Kevin Murcek DO Work Phone: [facility] 06-21-2024 09:29-0500 Body height 157.5 cm Kevin Lincolncek DO Work Phone: [facility] 06-21-2024 09:29-0500 Body mass index (BMI) [Ratio] 33.84 kg/m2 Kevin Lincolncek DO Work Phone: [facility] 06-21-2024 09:29-0500 Body weight 83.92 kg Kevin Lincolncek DO Work Phone: [facility] 06-13-2024 12:39-0500 Body height 157.5 cm Kevin Lincolncek DO Work Phone: [facility] 06-13-2024 12:39-0500 Body mass index (BMI) [Ratio] 33.84 kg/m2 Kevin Lincolncek DO Work Phone: [facility] 06-13-2024 12:39-0500 Body weight 83.92 kg Kevin Lincolncek DO Work Phone: [facility] 06-09-2024 14:32-0500 Diastolic blood pressure 80 mm[Hg] Aamir James MD Work Phone: [facility] 06-09-2024 14:32-0500 Systolic blood pressure 130 mm[Hg] Aamir James MD Work Phone: [facility] 06-07-2024 11:20-0500 Body height 157.5 cm Flores Lowe PA Work Phone: [facility] 06-07-2024 11:20-0500 Body mass index (BMI) [Ratio] 34.93 kg/m2 Flores Lowe PA Work Phone: [facility] 06-07-2024 11:20-0500 Body weight 86.64 kg Flores Lowe PA Work Phone: [facility] 06-07-2024 11:20-0500 Diastolic blood pressure 82 mm[Hg] Flores Lowe PA Work Phone: [facility] 06-07-2024 11:20-0500 Heart rate 71 /min Flores Lowe PA Work Phone: [facility] 06-07-2024 11:20-0500 Respiratory rate 16 /min Flores Lowe PA Work Phone: [facility] 06-07-2024 11:20-0500 SaO2% (BldA) [Mass fraction] 98 % Flores Lowe PA Work Phone: [facility] 06-07-2024 11:20-0500 Systolic blood pressure 124 mm[Hg] Flores Lowe PA Work Phone: [facility] 02-18-2024 12:45-0400 Blood Pressure Location MICAH NAS [facility] 02-18-2024 12:45-0400 Body temperature 98.6 [degF] MICAH NAS [facility] 02-18-2024 12:45-0400 Diastolic blood pressure 85 mm[Hg] MICAH NAS [facility] 02-18-2024 12:45-0400 Heart rate 68 /min MICAH NAS [facility] 02-18-2024 12:45-0400 Respiratory rate 16 /min MICAH NAS [facility] 02-18-2024 12:45-0400 Systolic blood pressure 135 mm[Hg] MICAH NAS [facility] 08-17-2023 11:21-0400 Blood Pressure Location Bertha BLAND [facility] 08-17-2023 11:21-0400 Body temperature 98.42 [degF] Bertha BLAND [facility] 08-17-2023 11:21-0400 Diastolic blood pressure 87 mm[Hg] Bertha BLAND [facility] 08-17-2023 11:21-0400 Heart rate 78 /min Berthaeleazar BLAND [facility] 08-17-2023 11:21-0400 Respiratory rate 16 /min Bertha BLAND [facility] 08-17-2023 11:21-0400 Systolic blood pressure 131 mm[Hg] Bertha BLAND [facility] 08-13-2023 14:44-0400 Body height 154.94 cm [facility] 08-13-2023 14:44-0400 Body mass index (BMI) [Ratio] 40 kg/m2 [facility] 08-13-2023 14:44-0400 Body weight 96.16 kg [facility] 08-13-2023 14:44-0400 Diastolic blood pressure 89 mm[Hg] [facility] 08-13-2023 14:44-0400 Heart rate 67 /min [facility] 08-13-2023 14:44-0400 Systolic blood pressure 162 mm[Hg] [facility] 03-31-2023 13:47-0500 Diastolic blood pressure 88 mm[Hg] [employer] Bambi Nam Work Phone: [facility] 03-31-2023 13:47-0500 Heart rate 82 /min [employer] Bambi Nam Work Phone: [facility] 03-31-2023 13:47-0500 Respiratory rate 16 /min [employer] Bambi Nam Work Phone: [facility] 03-31-2023 13:47-0500 SaO2% (BldA) [Mass fraction] 97 % [employer] Bambi Nam Work Phone: [facility] 03-31-2023 13:47-0500 Systolic blood pressure 140 mm[Hg] [employer] Bambi Nam Work Phone: [facility] 03-31-2023 12:01-0500 Body height 154.94 cm [employer] Bambi Nam Work Phone: [facility] 03-31-2023 12:01-0500 Body temperature 97.7 [degF] [employer] Bambi Nam Work Phone: [facility] 03-31-2023 12:01-0500 Body weight 92.07 kg [employer] Bambi Nam Work Phone: [facility] 03-12-2023 10:30-0400 Diastolic blood pressure 71 mm[Hg] [employer] Bambi Nam Work Phone: [facility] 03-12-2023 10:30-0400 Heart rate 80 /min [employer] Bambi Nam Work Phone: [facility] 03-12-2023 10:30-0400 Respiratory rate 16 /min [employer] Bambi Nam Work Phone: [facility] 03-12-2023 10:30-0400 SaO2% (BldA) [Mass fraction] 100 % [employer] Bambi Nam Work Phone: [facility] 03-12-2023 10:30-0400 Systolic blood pressure 136 mm[Hg] [employer] Bambi Nam Work Phone: [facility] 03-12-2023 08:37-0400 Body height 157.48 cm [employer] Bambi Nam Work Phone: [facility] [facility] 03-12-2023 08:37-0400 Body temperature 97.6 [degF] SQUAD BOSS-C Bambi Nam Work Phone: [facility] 03-12-2023 08:37-0400 Body weight 92.07 kg GINA Browning Work Phone: [facility] 02-13-2023 09:30-0400 Blood Pressure Location Bertha BLAND [facility] 02-13-2023 09:30-0400 Body temperature 97.88 [degF] Bertha BLAND [facility] 02-13-2023 09:30-0400 Diastolic blood pressure 82 mm[Hg] Bertha BLAND [facility] 02-13-2023 09:30-0400 Heart rate 78 /min Bertha BLAND [facility] 02-13-2023 09:30-0400 Systolic blood pressure 124 mm[Hg] Bertha BLAND [facility] 07-24-2022 13:15-0500 Body height 157.48 cm Cesar Estrada Other [facility] [facility] Other 07-24-2022 13:15-0500 Body mass index (BMI) [Ratio] 37.31 kg/m2 Cesar Estrada Other [facility] Other 07-24-2022 13:15-0500 Body weight 92.53 kg Cesar Estrada Other [facility] Other 07-24-2022 13:15-0500 Diastolic blood pressure 76 mm[Hg] Cesar Estrada Other [facility] Other 03-09-2023 13:15-0500 Respiratory rate 20 /min Cesar Estrada Other [facility] Other 07-24-2022 13:15-0500 Systolic blood pressure 135 mm[Hg] Cesar Estrada Other [facility] Other 04-02-2021 14:00-0500 Body height 157.48 cm Dominick Hester Other [facility] Other 04-02-2021 14:00-0500 Body mass index (BMI) [Ratio] 33.47 kg/m2 Dominick Hester Other [facility] Other 04-02-2021 14:00-0500 Body weight 83.01 kg Dominick Hester Other [facility] Other Encounters Encounter Date Encounter Type Care Provider Facility Start: 05-16-2025 ambulatory DYE REEL OPERATOR Bambi Browning Facil ity:[facility] Start: 02-24-2025 End: 02-24-2025 ambulatory Bertha BLAND Facility: [place] Start: 02-24-2025 End: 02-24-2025 Patient encounter procedure Bertha BLAND [facility] [place] Start: 02-07-2025 End: 02-07-2025 ambulatory Bambi Browning SQUAD BOSS-C Work Phone: [facility] Work Phone: Start: 02-07-2025 End: 02-07-2025 Patient encounter procedure Flores Rodriguez DATA REPORT ANALYST -[facility] [place] [facility] Work Phone: Start: 01-11-2025 End: 01-11-2025 Telephone encounter Jr. Adriana Cárdenas DO Work Phone: [facility] Comment on above: DENTAL APPT Start: 11-29-2024 End: 11-29-2024 Bamboo flowsheet Kateryna Chávez MD Work Phone: [facility] Start: 11-29-2024 End: 11-29-2024 Bamboo flowsheet Kateryna Chávez MD Work Phone: [facility] Start: 11-29-2024 End: 11-29-2024 Office outpatient visit 25 minutes Kateryna Chávez MD Work Phone: [facility] Comment on above: Melanocytic nevus of trunk (Primary Dx); Seborrheic keratosis; History of basal cell carcinoma; Androgenic alopecia Start: 11-29-2024 End: 11-29-2024 ambulatory KATERYNA CHÁVEZ Not Available Start: 10-27-2024 End: 10-27-2024 Bamboo flowsheet Rosalinda ISAAC Work Phone: [facility] Start: 10-27-2024 End: 10-27-2024 Bamboo flowsheet Rosalinda ISAAC Work Phone: [facility] Start: 10-27-2024 End: 10-27-2024 Office outpatient visit 15 minutes Rosalinda ISAAC Work Phone: [facility] Comment on above: S/P total knee [...] encounter procedure Mile Sanchez MD Work Phone: [facility] Work Phone: Start: 09-07-2024 End: 09-07-2024 ambulatory Mile Sanchez MD Work Phone: [facility] Work Phone: Start: 09-07-2024 Encounter for other preprocedural examination Rosalinda Bernstein [facility] Start: 08-29-2024 End: 08-29-2024 Clinisync Result Encounter Robert Jhon DO Work Phone: [facility] Unsolicited Start: 08-29-2024 End: 08-29-2024 Clinisync Result Encounter Robert Jhon DO Work Phone: [facility] Unsolicited Start: 08-29-2024 End: 08-29-2024 ambulatory DYE REEL OPERATOR Bambi Browning Facility:[facility] Rissa gant Start: 08-22-2024 End: 08-22-2024 Bamboo [...] of breast Start: 08-15-2024 End: 08-15-2024 ambulatory [facility] Work Phone: Start: 08-15-2024 End: 08-15-2024 Patient encounter procedure [facility] Work Phone: Start: 07-20-2024 End: 07-20-2024 Bamboo [...] encounter status Kevin Aguilar DO Work Phone: [facility] Start: 06-13-2024 End: 06-13-2024 ambulatory KEVIN AGUILAR Not Available Start: 06-12-2024 End: 06-12-2024 Preprocedural examination done Kevin Aguilar DO Work Phone: [facility] Start: 06-09-2024 End: 06-09-2024 Patient encounter procedure Aamir James MD Work Phone: [facility] Comment on above: Basal cell carcinoma [...] 05-26-2024 Lab Drop off Bambi L Nam [facility] Start: 05-26-2024 End: 05-26-2024 ambulatory Bambi L Nam Facility:[facility] Start: 05-16-2024 End: 05-16-2024 ambulatory Bambi L Nam Facility:[facility] [place] Start: 04-12-2024 End: 04-12-2024 Bamboo flowssumeet Chávez MD Work Phone: [facility] Start: 04-12-2024 End: 04-12-2024 Bamboo flowssumeet Chávez MD Work Phone: [facility] Start: 04-12-2024 End: 04-12-2024 ambulatory KATREYNA CHÁVEZ Not Available Start: 04-12-2024 End: 04-12-2024 Office outpatient new 20 minutes Kateryna Chávez MD Work Phone: [facility] Comment on above: Melanocytic nevi of face (Primary Dx); Neoplasm of unspecified behavior of bone, soft tissue, and skin Start: 03-15-2024 End: 03-15-2024 ambulatory DYE REEL OPERATOR Bambi L Nam Facility:[facility] [place] Start: 02-18-2024 End: 02-18-2024 ambulatory MICAH Clarence NAS Facility:[facility] [place] Start: 02-18-2024 End: 02-18-2024 Patient encounter procedure MICAHDAYDAY MOROCHORY [facility] [place] Start: 01-21-2024 End: 01-21-2024 Lab Drop off Bambi L Anm [facility] Start: 01-21-2024 End: 01-21-2024 ambulatory [...] 10-05-2023 End: 10-05-2023 ambulatory Bambi L Nam Facility:[facility] Rissa gant Start: 10-01-2023 End: 10-01-2023 ambulatory SQUAD BOSS-C Bambi Waddelln Nam Work Phone: [facility] Work Phone: Start: 10-01-2023 End: 10-01-2023 Patient encounter procedure SQUAD BOSS-C Bambi Nam Work Phone: [facility] [address] Work Phone: Start: 09-30-2023 End: 09-30-2023 Patient encounter procedure SQUAD BOSS-C Bambi Nam Work Phone: [facility] Work Phone: Start: 09-14-2023 End: 09-14-2023 ambulatory Bertha BLAND Facility:[facility] Start: 09-14-2023 End: 09-14-2023 Patient encounter procedure [facility] BL[facility] Start: 08-26-2023 End: 08-26-2023 ambulatory Bambi L Nam Facility:[facility] Rissa gant Start: 08-17-2023 End: 08-17-2023 ambulatory Bertha BLAND Facility:[facility] [place] Start: 08-17-2023 End: 08-17-2023 Patient encounter procedure Bertha BLAND [facility] Start: 08-13-2023 End: 08-13-2023 ambulatory SQUAD BOSS-C Bambi Browning Work Phone: [facility] Work Phone: Start: 08-13-2023 End: 08-13-2023 Patient encounter procedure [facility] Work Phone: Start: 05-13-2023 End: 05-13-2023 Lab Drop off Bambi L Nam [facility] Start: 04-16-2023 End: 04-16-2023 ambulatory Cesar Estrada Other [facility] Other Start: 04-16-2023 Telephone encounter Cesar ROD G [facility] Start: 04-01-2023 End: 04-01-2023 ambulatory Cesar Estrada Other [facility] Other Start: 04-01-2023 Telephone encounter Cesar Ruano [facility] Start: 03-31-2023 End: 03-31-2023 Admission to same day surgery center SQUAD BOSS-C Bambi Nam Work Phone: [facility] Work Phone: Start: 03-31-2023 End: 03-31-2023 ambulatory SQUAD BOSS-C Bambi [place] Nam Work Phone: [facility] Work Phone: Start: 03-16-2023 End: 03-16-2023 ambulatory Cesar Estrada Other [facility] Other Start: 03-16-2023 Telephone encounter Cesar Ruano [facility] Start: 03-12-2023 End: 03-12-2023 Admission to same day surgery center SQUAD BOSS-C Bambi Nam Work Phone: [facility] Work Phone: Start: 03-12-2023 End: 03-12-2023 ambulatory SQUAD BOSS-C Bambi [place] Nam Work Phone: [facility] Work Phone: Start: 02-13-2023 End: 02-13-2023 Patient encounter procedure Bertha BLAND [facility] Start: 11-27-2022 End: 11-27-2022 ambulatory SQUAD BOSS-C Bambi Vegas Nam Work Phone: [facility] Work Phone: Start: 11-27-2022 End: 11-27-2022 Patient encounter procedure SQUAD BOSS-C Bambi Nam Work Phone: [facility] [address] Work Phone: Start: 11-24-2022 End: 11-24-2022 ambulatory SQUAD BOSS-C Bambi Browning Work Phone: [facility] Work Phone: Start: 11-24-2022 End: 11-24-2022 Patient encounter procedure SQUAD BOSS-C Bambi Browning Work Phone: [facility] Svm-Zrs-Lggqtbut Testing Work Phone: Start: 10-17-2022 End: 10-17-2022 Lab Drop off MICAH GOTTLIEB [facility] Start: 10-17-2022 End: 10-17-2022 Patient encounter procedure Bertha BLAND [facility] [place] Start: 09-23-2022 End: 09-23-2022 Lab Drop off Bertha BLAND [facility] Start: 09-22-2022 End: 09-22-2022 Patient encounter procedure Bertha BLAND [facility] [place] Start: 08-19-2022 End: 08-20-[address] ESTEFANÍA SUTHERLAND . Facility:[facility] Start: 08-11-2022 End: 08-11-[address] ESTEFANÍA SUTHERLAND . Facility:[facility] Start: 07-31-2022 End: 08-01-[address] ESTEFANÍA SUTHERLAND . Facility:[facility] Start: 07-29-2022 End: 07-29-2022 Patient encounter procedure Bertha BLAND [facility] Start: 07-24-2022 End: 07-24-2022 ambulatory Cesar Estrada Other [facility] Other Start: 07-24-2022 Patient encounter procedure Cesar Estrada [facility] Start: 07-22-2022 End: 07-23-[address] BERTHA BLAND . Facility:[facility] Start: 07-14-2022 End: 07-14-2022 Lab Drop off Bertha BLAND [facility] Start: 06-12-2022 End: 06-13-[address] BERTHA BLAND . Facility:[facility] Start: 06-05-2022 End: 06-06-[address] ESTEFANÍA SUTHERLAND . Facility:[facility] Start: 05-19-2022 End: 05-20-2022 ambulatory MR ROSALINDA BERNSTEIN . Facility:[facility] Start: 05-16-2022 End: 05-17-[address] ROBERT FERREIRA . Facility:[facility] Start: 05-05-2022 End: 05-05-2022 ambulatory MD Estefanía Sutherland Work Phone: [facility] Work Phone: Start: 05-05-2022 End: 05-05-2022 Patient encounter procedure MD Estefanía Sutherland Work Phone: [facility] [address] Start: 05-05-2022 End: 05-05-2022 ambulatory MD Estefanía Sutherland Work Phone: [facility] Work Phone: Start: 05-05-2022 End: 05-05-2022 Patient encounter procedure MD Estefanía Sutherland Work Phone: [facility] Trt-Brz-Qlymoju[facility] Testing Start: 01-29-2022 End: 01-29-[address] ESTEFANÍA SUTHERLAND . Facility:[facility] Start: 01-13-2022 Encounter for preprocedural cardiovascular examination DR ESTEFANÍA SUTHERLAND . [facility] Start: 01-13-2022 Encounter for preprocedural laboratory examination DR ESTEFANÍA SUTHERLAND . [facility] Start: 01-10-2022 End: 01-11-[address] ESTEFANÍA SUTHERLAND . Facility:[facility] Start: 01-10-2022 End: 01-11-2022 Encounter for preprocedural laboratory examination DR ESTEFANÍA SUTHERLAND . Facility:[facility] Start: 10-03-2021 End: 10-04-[address] ESTEFANÍA SUTHERLAND . Facility:[facility] Start: 09-17-2021 End: 09-17-2021 ambulatory Dominick Hester Other [employer] Other Start: 09-17-2021 Telephone encounter Dominick Carltonabril [facility] Start: 04-02-2021 End: 04-02-2021 ambulatory Dominick Hester Other [employer] Other Start: 04-02-2021 Office outpatient vi sit 25 minutes Dominick Hester [facility] Gastroenterology Procedures Date Procedure Procedure [...] Start: 10-01-2023 Plain X-ray of bilateral femurs SQUAD BOSS-C Mayuri Browning Work Phone: Start: 10-01-2023 Plain X-ray of bilateral tibia and bilateral fibula SQU[facility] BOSS-C Bambi Browning Work Phone: Start: 09-30-2023 Plain chest X-ray SQUAD BOSS-C Bambi Browning Work Phone: Start: 08-28-2023 Mammography Kateryna Chávez MD Work Phone: Start: 03-31-2023 Esophagogastroduodenoscopy SQUAD BOSS-C Bambi Castañeda wab Work Phone: Start: 03-12-2023 Colonoscopy SQUAD BOSS-C Bambi Nam Work Phone: Start: 11-27-2022 Plain X-ray of bilateral femurs SQUAD BOSS-C Makaylaignacio christina Nam Work Phone: Start: 11-27-2022 Plain X-ray of bilateral tibia and bilateral fibula SQUAD BOSS-C Bambi Nam Work Phone: Start: 05-05-2022 Plain [...] Screening for malignant neoplasm of breast Mammogram [facility] Start: 01-16-2025 Influenza vaccination Influenza Vaccine (#1) [facility] Start: 12-13-2024 End: 12-13-2024 Patient encounter procedure 12/13/2024 11:05 AM EDT Office Visit [facility] [address] [place] [phone] Kateryna Chávez MD [address] [place] [address] [facility] Start: 11-29-2024 End: 11-29-2024 Patient encounter procedure [facility] Comment on above: Arrived Start: 11-22-2024 End: 11-22-2024 Patient encounter procedure 11/22/2024 10:40 AM EDT Office Visit [facility] [address] [place] [phone] Flores Gaytan PA [address] [place] [address] [facility] [place] Start: 10-27-2024 End: 10-27-2024 Patient encounter procedure 10/27/2024 10:45 AM EDT Office Visit [facility] [address] [place] [phone] Rosalinda Bernstein PA [address] [place] [address] [facility] Start: 10-12-2024 End: 10-12-2024 Patient encounter procedure 10/12/2024 3:40 PM EDT Office Visit [facility] [address] [place] [phone] Lory Busch PA [address] [place] [address] Arrived [facility] Comment on above: Arrived Start: 09-07-2024 End: 09-07-2024 [facility] Start: 08-27-2024 Screening for malignant neoplasm of breast Mammogram [facility] Start: 08-22-2024 End: 08-22-2024 Patient encounter procedure 08/22/2024 1:00 PM EDT Office Visit [facility] [address] [place] [address] Robert Ferreira, DO [address] [place] [address] [facility] Start: 07-20-2024 End: 07-20-2024 Patient encounter procedure [facility] Comment on above: Arrived Start: 06-21-2024 End: 06-21-2024 Patient encounter procedure [facility] Comment on above: Arrived Start: 06-13-2024 End: 06-13-2025 ECG 12 lead ECG 12 lead ECG Routine Preop testing Expected: 06/13/2024 (Approximate), Expires: 06/13/2025 [facility] Work Phone: Comment on above: Expected: 06/13/2024 (Approximate), Expi res: 06/13/2025 Start: 06-13-2024 End: 06-13-2024 Patient encounter procedure 06/13/2024 12:45 PM EST Office Visit [facility] [address] [place] [phone] Kevin Aguilar, DO [address] [place] [address] Basal cell carcinoma (BCC) of glabella [facility] Comment on above: Basal cell carcinoma (BCC) of glabella Start: 06-09-2024 End: 06-09-2024 Patient encounter procedure 06/09/2024 1:15 PM EST Office Visit [facility] [address] [place] [phone] Aamir James MD [address] [place], [place] [id number] [facility] Start: 06-07-2024 End: 06-07-2024 Patient encounter procedure [facility] [address] Comment on above: Arrived Start: 01-17-2024 Influenza vaccination Influenza Vaccine (#1) [facility] Start: 09-30-2023 Urine culture Urine Culture [facility] Start: 03-31-2023 [facility] Start: 03-12-2023 [facility] Start: 02-26-2016 Pneumococcal Vaccine: 65+ Years (1 of 1 - PCV) Pneumococcal Vaccine: 65+ Years (1 of 1 - PCV) [facility] Start: 1950 Screening for malignant neoplasm of colon [facility] Adalimumab [Mass/vol ume] in Serum or Plasma [facility] Adalimumab Ab [Mass/volume] in Serum or Plasma [facility] Bacteria identified in Urine by Culture Urine Culture [facility] Comprehensive metabo lic 2000 panel - Serum or Plasma [facility] Dermatopathology exam Dermatopat hology exam Pathology and Cytology Timed Neoplasm of unspecified behavior of bone, soft tissue, and skin Release Upon Ordering for 1 Occurrences starting 04/12/2024 [facility] Work Phone: Comment on above: Release Upon Ordering for 1 Occurrences starting 04/12/2024 Patient Education [facility] Work Phone: THIN PREP TIS PAP AN D HR HPV DNA THIN PREP TIS PAP AND HR HPV DNA Pathology and Cytology Routine Well woman exam with routine gynecological exam Ordered: 08/22/2024 [facility] Work Phone: Comment on above: Ordered: 08/22/2024 Urinalysis complete panel - Urine Urinalysis with reflex microscopic Lab Routine 09/07/2024 12:39 PM EDT [facility] Work Phone: [facility] Immunizations Immunization Date Immunization Notes Care Provider Fa cility 07-22-2024 tetanus toxoid, redu mattie diphtheria toxoid, and acellular pertussis vaccine, adsorbed Bertha BLAND [facility] 04-28-2024 influenza virus vaccine, unspecified formulation Bambi Browning [facility] 04-28-2024 influenza, high dose seasonal, preservative-free Kevin Aguilar DO Work Phone: [facility] 04-28-2024 pneumococcal 20-jomar nt conjugate vaccine Bambi Browning [facility] 04-21-2022 COVID-19 mRNA Bivale nt Booster (Pfizer) MD Estefanía Sutherland Work Phone: [facility] 04-21-2022 influenza virus vaccine, unspecified formulation Bertha BLAND [facility] 04-21-2022 Influenza, High-dose Seasonal, Quadrivalent, Preservative Free Kateryna Chávez MD Work Phone: [facility] 04-21-2022 Moderna Bivalent Booster Vaccination Kateryna Chávez MD Work Phone: [facility] 04-21-2022 Moderna SARS-CoV-2 50mcg/0.5mL Booster Kateryna Chávez MD Work Phone: [facility] 03-15-2021 COVID-19 mRNA Comirnaty (Pfizer) MD Estefanía Sutherland Work Phone: [facility] Comment on above: Result Comment: 2022: [id number] 03-15-2021 influenza virus vaccine, unspecified formulation Bertha BLAND [facility] 03-15-2021 Influenza, Seasonal, Quadrivalent, Adjuvanted Kateryna Chávez MD Work Phone: [facility] 01-24-2021 diphtheria, tetanus toxoids and pertussis vaccine Kateryna Chávez MD Work Phone: [facility] 08-08-2020 COVID-19 mRNA, Comirnaty (Pfizer) MD Estefanía Sutherland Work Phone: [facility] 07-11-2020 COVID-19 Luis Eduardo Gardner (Pfizer) MD Estefanía Sutherland Work Phone: [facility] 02-16-2020 influenza, injectabl e, quadrivalent, contains preservative Kateryna Chávez MD Work Phone: [facility] 07-01-2019 zoster vaccine recombinant Bertha BLAND [facility] 04-30-2019 influenza virus vaccine, unspecified formulation Bertha BLAND [facility] 04-30-2019 influenza, high dose seasonal, preservative-free Kateryna Chávez MD Work Phone: [facility] 04-30-2019 zoster vaccine recombinant Bertha BLAND [facility] Payers Date Payer Category Payer Self-pay [id number] 2022 Private Health Insurance [id number] 2018 [employer] [facility] [id number] 2016 Medicare [id number] 1959 Blue Cross Blue Shield [id number] 2.16.840.1.466786.19 1959 Medicare [id number] 2.16.840.1.217301.19 1951 Unknown [id number] 2.16.840.1.829229.3.579.2 .593 1951 Unknown [id number] 2.16.840.1.165160.3.579.2 .593 1951 Unknown [id number] 2.16.840.1.155196.3.579.2 .593 1951 Unknown [id number] 2.16.840.1.612048.3.579.2 .593 1951 Unknown [id number] 2.16.840.1.738396.3.579.2 .593 1951 Unknown [id number] 2.16.840.1.775696.3.579.2 .593 1951 Unknown [id number] 2.16.840.1.829010.3.579.2 .593 1951 Unknown [id number] 2.16.840.1.468081.3.579.2 .593 1951 Unknown [id number] 2.16.840.1.117869.3.579.2 .593 1951 Unknown [id number] 2.16.840.1.367299.3.579.2 .593 1951 Unknown [id number] 2.16.840.1.458407.3.579.2 .593 1951 Unknown [id number] 2.16.840.1.942047.3.579.2 .593 1951 Unknown [id number] 2.16.840.1.548958.3.579.2 .727 1951 Unknown [id number] 2.16.840.1.590731.3.579.2 .727 1951 Unknown [id number] 2.16.840.1.110342.3.579.2 .727 1951 Unknown [id number] 2.16.840.1.205569.3.579.2 .72 1951 Unknown [id number] 2.16.840.1.931382.3.579.2 .727 1951 Unknown [id number] 2.16.840.1.388024.3.579.2 .72 1951 Unknown [id number] 2.16.840.1.215987.3.579.2 .72 1951 Unknown [id number] 2.16.840.1.102014.3.579.2 .72 1951 Unknown [id number] 2.16.840.1.645730.3.579.2 .125 1951 Unknown [id number] 2.16.840.1.332440.3.579.2 .1258 1951 Unknown [id number] 2.16.840.1.928766.3.579.2 .125 1951 Unknown [id number] 2.16.840.1.193201.3.579.2 .125 1951 Unknown [id number] 2.16.840.1.442379.3.579.2 .125 1951 Unknown [id number] 2.16.840.1.759981.3.579.2 .125 1951 Unknown [id number] 2.16.840.1.270959.3.579.2 .125 1951 Unknown [id number] 2.16.840.1.575298.3.579.2 .125 1951 Unknown [id number] 2.16.840.1.609621.3.579.2 .125 1951 Unknown [id number] 2.16.840.1.246631.3.579.2 .1259 1951 Unknown [id number] 2.16.840.1.802092.3.579.2 .1258 1951 Unknown [id number] 2.16.840.1.245585.3.579.2 .125 1951 Unknown [id number] 2.16.840.1.273958.3.579.2 .125 1951 Unknown [id number] 2.16.840.1.115137.3.579.2 .125 1951 Unknown [id number] 2.16.840.1.690877.3.579.2 .1258 1951 Unknown [id number] 2.16.840.1.016128.3.579.2 .1258 1951 Unknown [id number] 2.16.840.1.291121.3.579.2 .1258 1951 Unknown [id number] 2.16.840.1.586701.3.579.2 .125 1951 Unknown [id number] 2.16.840.1.616135.3.579.2 .1258 1951 Unknown [id number] 2.16.840.1.760960.3.579.2 .125 1951 Unknown [id number] 2.16.840.1.939182.3.579.2 .125 1951 Unknown [id number] 2.16.840.1.361039.3.579.2 .72 1951 Unknown [id number] 2.16.840.1.461271.3.579.2 .72 1951 Unknown [id number] 2.16.840.1.001436.3.579.2 .727 1951 Unknown [id number] 2.16.840.1.860940.3.579.2 .72 1951 Unknown [id number] 2.16.840.1.272458.3.579.2 .727 1951 Unknown [id number] 2.16.840.1.474796.3.579.2 .727 Unknown [facility] Health Claims [id number] Unknown [id number] 2.16.840.1.178803.3.579.2 .531 Unknown [id number] 2.16.840.1.145700.3.579.2 .531 Social History Date Type Detail Facility Unknown if ever smoked [facility] Other Start: 12-28-2023 End: 11-29-2024 Sex Assigned At [facility] Start: 05-05-2022 End: 02-24-2025 Tobacco smoking status [facility] Ex-smoker (finding) [facility] Comment on above: quite smoking 2001. did previously smoke 1.5-2 PPD Start: 1950 Sex Assigned At Female [facility] Start: 11-19-2022 End: 05-13-2023 Tobacco [facility] Comment on above: quite smoking 2001. did previously smoke 1.5-2 PPD End: 04-08-2002 History of tobacco use Current smoker [facility] End: 04-08-2002 History of tobacco use Cigarette Smoker [facility] Start: 04-17-2023 End: 06-21-2024 Tobacco use and exposure Smokeless tobacco non-user [facility] Start: 04-12-2024 End: 11-29-2024 Alcoholic beverage intake Current drinker of alcohol (finding) [facility] Start: 04-12-2024 End: 11-29-2024 Alcoholic beverage intake [facility] Start: 02-22-2023 Alcohol Comment caffeine intak e: 3-4 cups per day. [facility] Start: 11-19-2022 Gender identity Identifies as female gender (finding) [facility] Start: 06-21-2024 Alcohol Comment Less than one drink per month [facility] Start: 01-06-2015 End: 08-15-2024 Sex Female (finding) [facility] Sexual Orientation [facility] Medical Equipment Procedure Code Equipment Code Equipment Origin al Text Equipment Identifier Dates Arthroplasty, knee, total, minimally invasive Orthopaedic cement, non-medicated [id number] FDA Start: 12-11-2022 Arthroplasty, knee, total, minimally invasive Orthopaedic bone screw, non-bioabsorbable, sterile [id number] FDA Start: 12-11-2022 Arthroplasty, knee, total, minimally invasive Orthopaedic bone screw, non-bioabsorbable, sterile ()[id number] FDA Start: 12-11-2022 Arthroplasty, knee, total, minimally invasive Uncoated knee femur prosthesis ()[id number] FDA Start: 12-11-2022 Arthroplasty, knee, total, minimally invasive Tibial insert ()[id number] FDA Start: 12-11-2022 Arthroplasty, knee, total, minimally invasive Uncoated knee tibia prosthesis, metallic ()[id number] FDA Start: 12-11-2022 Arthroplasty, knee, total, minimally invasive Polyethylene patella prosthesis ()[id number] FDA Start: 12-11-2022 Goals Date Patient Goal Desired Activity /State Functional Status Date Assessment Result Facility 02-18-2024 Functional Status N/A [facility] 08-17-2023 Functional Status N/A [facility] 02-13-2023 Functional Status N/A [facility] 07-24-2022 Functional Status N/A [facility] Clinical Notes 04-02-2021 to 02-24-2025 Telephone [...] include: ?8 oz (237 mL) of milk, tncrman-fuweedyvjlfh-eocpn milk, and calcium-fortifiedfruit juice. Calcium-fortified means that [...] ?Spinach (cooked), rhubarb, beets, sweet potatoes, and Cape Verdean chard. ?Peanuts. ?Potato chips, cymraes fries, and baked potatoes with skin on. ?Nuts and nut products. ?Chocolate. If you regularly take a diuretic medicine, make sure to eat at least 1 or 2 servings of fruits or vegetables that are high in potassium each day. These include: ?Avocado. ?Banana. ?Sutter, prune, carrot, or tomato juice. ?Baked potato. [...] magnesium, fish oil, or vitamin B6. Take yukw-vsn-gyatebg and prescription medicines only as told by [...] Casseroles. Pizza. Lasagna. Frozen meals. Potato chips. American fries. The items listed above may not [...] provider. Document Revised: 08/14/2022 Document Reviewed: 08/14/2022 [employer] Patient Education 2023 HelpAround. Follow Up Care 02/18/2024 13:27:06 With:EDWINA MOSLEY, Bertha Vu, AMYL Address: [facility] [address] [place] [address]- When: Unknown [facility] 02-24-2025 Note Patient Education Nephrology Dietary [...] ? 8 oz (237 mL) of milk, rxodhdv-apohafkapvfe-nmhgf milk, and calcium-fortifiedfruit juice. Calcium-fortified means that [...] Spinach (cooked), rhubarb, beets, sweet potatoes, and [place] Ver[place]an chard. ? Peanuts. ? Potato chips, cymraes fries, and baked potatoes with skin on. ? Nuts and nut products. ? Chocolate. ??? If you regularly take a diuretic medicine, make sure to eat at least 1 or 2 servings of fruits or vegetables that are high in potassium each day. These include: ? Avocado. ? Banana. ? Sutter, prune, carrot, or tomato juice. ? Baked [...] fish oil, or vitamin B6. ??? Take rxvg-pea-mjsnkzu and prescription medicines only as told by your health (more content not included)... [facility] 01-11-2025 Telephone encounter Note L TKA 10/22/23 , R TKA 12/11/22, KIRSTIE 10/27/24 Has dental appt 01/26/25 and needs antibiotic rx [facility] 01-11-2025 Miscellaneous Notes L TKA 10/22/23 , R TKA 12/11/22, KIRSTIE 10/27/24 Has dental appt 01/26/25 and needs antibiotic rx [facility] documented in this encounter [facility] 11-29-2024 History of Presen t illness Narrative [...] Examined Right arm Examined Patient wearing nail bruneian, Denies dark streaks on toenails Left arm [...] Visit: 1 year documented in this encounter [facility] 10-27-2024 History of Presen t illness Narrative Images from the original note were not included. Orthopedic Office note: NAME: Gia Ruiz : 1950 (EST PT) - YEARLY RECHECK B/L KNEES - S/P (L) TKA 10/22/23 (1 YR, 1 WK) ; S/P (R) TKA 12/11/22 (1 YR, 10 MONTHS) (R) KNEE XRAY TODAY, 10/27/24 IN EPIC XRAY 01/22/23 IN CHANGE NO MDP/PREDNISONE S/P PT [facility] PT WOULD LIKE TO RENEW HANDStudent[employer] PLACChat& (ChatAnd) FOR 2 VEHICLES TODAY. PRESENTS AMBULATING WITHOUT [...] 11/27/23 IN EPIC S/P PT (13 SESSIONS) @[facility] ADMITS TINGLING NERVE SENSATION TO LATERAL [...] requiring urgent evaluation. Visit was preformed using [employer] flight check pilot speech recognition. documented in this encounter [facility] 10-12-2024 History of Presen t illness Narrative Images from the original note were not included. Subjective Gia Ruiz is a 74 y.o. year old female Chief Complaint Patient presents with Cerebrovascular Accident Past Medical History: Diagnosis Date Abnormal Pap smear of cervix Acid reflux Alcohol abuse BMI 33.0-33.9,adult Crohn's disease (CMS/HCC) Depression ([facility]/HCC) Depression screen Diabetes type 2, controlled (CMS/HCC) Diabetes, gestational DM2 (diabetes mellitus, type 2) (CMS/HCC) Dysuria 06/12/2024 Encounter for gynecological examination (general) (routine) without abnormal findings GERD (gastroesophageal reflux disease) H/O degenerative disc disease Hemangioma Hepatitis A History of being hospitalized [facility] 08/2019, childbirth Hyperlipidemia (CMS/HCC) Hypertension (CMS/HCC) Hypothyroid (CMS/HCC) Hypothyroidism (CMS/HCC) Kidney disease Labial abscess 06/12/2024 Lacunar infarction ([facility]/HCC) Neurologic disorder OA (osteoarthritis) JOSE RAMON (obstructive sleep apnea) Post menopausal syndrome Post-menopausal Pre-op exam 06/12/2024 PVD (peripheral vascular disease) ([facility]/HCC) Skin texture changes 06/12/2024 Thyroid cancer ([facility]/HCC) Urge incontinence 06/12/2024 Urinary frequency 06/12/2024 Well [...] Review Audit Reviewed by Carmelita Macdonald MA (Identification Printing Machine Setter) on 10/12/24 at 1549 Medication Order Taking? Sig Documenting Provider Last Dose Status acetaminophen (Tylenol 8 Hour) 650 MG ER tablet [id number] No Take by mouth. Historical Provider, Taking Active adalimumab (Humira) 40 MG/0.8ML Prefilled Syringe Kit prefilled syringe [id number] No 0.8 ml Subcutaneous Historical ProviderMD Not Taking Active amoxicillin (Amoxil) 500 MG tablet [id number] 4 tabs PO once 30-60 mins before procedure with food PONCHO Ulloa Active ascorbic acid (Vitamin C) 250 MG chewable tablet [id number] No Vitamin C Historical ProviderMD Taking Active aspirin 81 MG EC tablet [id number] Take 1 tablet by mouth in the morning. Historical Provider, Active atorvastatin (Lipitor) 20 MG tablet [id number] No Take 1 tablet every day by oral route for 30 days. Historical Provider, Taking Active Bacillus Coagulans-Inulin (PROBIOTIC-PREBIOTIC PO) [id number] No Probiotic Historical Provider, Taking Active baclofen (Lioresal) 10 MG tablet [id number] TAKE 1 TABLET BY MOUTH IN THE MORNING AND 2 BEFORE BEDTIME NEEDED PONCHO Barrientos Active calcium carbonate EX (Tums Extra Strength) 750 MG chewable tablet [id number] No Chew 300 mg. Historical ProviderMD Taking Active cholecalciferol (Vitamin D-3) 1.25 MG (67379 UT) capsule [id number] Take 50,000 Units by mouth 1 (one) time per week 1 capsule Orally twice a month PONCHO Barrientos Active coenzyme Q-10 100 MG ER capsule [id number] No as directed Orally Historical MD Fausto Taking Active Cranberry 500 MG chewable tablet [id number] No Chew. Jurgen Lambert MD Taking Active ferrous sulfate 325 (65 Fe) MG tablet [id number] Take 325 mg by mouth in the morning. Take with meals. PONCHO Barrientos Active levothyroxine (Synthroid, Levoxyl) 125 MCG tablet [id number] No Take 1 tablet every day by oral route for 90 days. Jurgen Lambert MD Taking Active liothyronine (Cytomel) 5 MCG tablet [id number] No 1 (one) time each day at the same time. Jurgen Lambert MD Taking Active losartan-hydroCHLOROthiazide (Hyzaar) 100-25 MG tablet [id number] No Take by mouth. Jurgen Lambert MD Taking Active magnesium gluconate (Magonate) 500 MG tablet [id number] No Take by mouth. Historical MD Fausto Taking Active Melatonin 5 MG chewable tablet [id number] No Melatonin Historical MD Fausto Taking Active metFORMIN (Glucophage) 500 MG tablet [id number] No Take 3 tablets every day by oral route for 90 days. Historical MD Fausto Taking Active Methylcobalamin (Methyl B-12) 500 MCG chewable tablet [id number] No See Instructions, 5 mg Chewed, Refills(s) 0 Jurgen Lambert MD Taking Active Multiple Vitamin (Multi Vitamin) tablet [id number] No 1 (one) time each day at the same time. Jurgen Lambert MD Taking Active Duff-3 Fatty Acids (Fish Oil) 1200 MG capsule delayed-release [id number] No Take by mouth. Historical MD Fausto Taking Active omeprazole (PriLOSEC) [address] capsule [id number] No Take 1 capsule every day by oral route for 90 days. Jurgen Lambert MD Taking Active ondansetron (Zofran) 8 MG tablet [id number] Take 8 mg by mouth every 8 (eight) hours if needed for nausea PONCHO Ulloa Active Tirzepatide (Mounjaro) 5 MG/0.5ML solution auto-injector [id number] Inject 5 mg under the skin 1 (one) time per week Jurgen Lambert MD Active Zinc Sulfate (ZINC 15 PO) [id number] No Zinc Historical ProviderMD Taking Active HPI [...] triceps, wrist extensors, wrist extensors, wrist flexor, marina dry dock manager strength 5/5. LUE Strength deltoid, biceps, triceps, wrist extensors, wrist extensors, wrist flexor, marina dry dock manager strength 5/5. RLE Strength illopsoas, quadriceps, tibialis [...] medullary stroke in August 2019 evaluated at [facility]. She initially presented with left sided [...] Lory Busch PA-C documented in this encounter [facility] 08-22-2024 History of Presen t illness Narrative [...] Vitamin (Multi Vitamin) tablet Every 24 hours Duff-3 Fatty Acids (Fish Oil) 1200 MG capsule [...] 11/26/2022 Class 1 obesity 11/26/2022 Crohn's disease ([facility]) 11/26/2022 Diabetes mellitus ([facility]) 11/26/2022 Hyperlipidemia ([facility]) 11/26/2022 Hypertension ([facility]) 10/03/2019 Hypothyroidism ([facility]) 11/26/2022 Incomplete bladder emptying 11/26/2022 Malignant neoplasm of thyroid gland ([facility]) 04/13/2006 JOSE RAMON (obstructive sleep apnea) 11/26/2022 Osteoarthritis of knee 11/26/2022 Osteoarthritis 11/26/2022 Primary osteoarthritis of right knee 11/26/2022 Primary osteoarthritis 11/26/2022 Status post total knee replacement 11/26/2022 UTI (urinary tract infection) 11/26/2022 Kidney stone 12/25/2022 Type II diabetes mellitus ([facility]) 12/25/2022 Hypertensive disorder ([facility]) 10/03/2019 Acute pain of left knee 11/12/2023 Cerebrovascular accident (CVA) ([facility]) 12/19/2023 Left hemiparesis ([facility]) 12/19/2023 Paresthesia of skin 12/19/2023 Spasticity 12/19/2023 [...] Kidney disease Labial abscess 06/12/2024 Lacunar infarction ([facility]/HCC) Neurologic disorder OA (osteoarthritis) JOSE RAMON (obstructive sleep apnea) Post menopausal syndrome Post-menopausal Pre-op exam 06/12/2024 PVD (peripheral vascular disease) ([facility]/HCC) Skin texture changes 06/12/2024 Thyroid cancer ([facility]/HCC) Urge incontinence 06/12/2024 Urinary frequency 06/12/2024 Well [...] nursing note reviewed. Exam conducted with a security assistant present. Vitals: Estimated body mass index is [...] Robert Ferreira DO documented in this encounter [facility] 08-15-2024 Evaluation note Diagnosis Onset Date Resolution Crohn disease acute August 15, 2024 10:31am GERD (gastroesophageal reflux disease) acute August 15, 2024 10:31am [facility] (current) use of immunosuppressive biologic acute August 15, 2024 10:31am [facility] Work Phone: [phone]) 117-159803-05-2025 History of Present illness Narrative* Kevin Aguilar [...] her back as needed documented in this [facility]02-06-2025 Telephone encounter Note* Telephone Encounter - Myra Turcios - 06/23/2024 1:09 PM EST Patient notified [facility] [id number] Miscellaneous Notes* Telephone Encounter - Myra Turcios - 06/23/2024 1:09 PM EST Patient notified * Telephone Encounter - PONCHO Ulloa - 06/23/2024 12:17 PM EST Rx sent to pharmacy * Telephone Encounter - Myra Turcios - 06/23/2024 11:50 AM EST Patient called and left vm requesting antibiotic be sent to her pharmacy for her upcoming dentist appt. documented in this encounterSaint [facility] [id number] Telephone encounter Note* Telephone Encounter - PONCHO Ulloa - 06/23/2024 12:17 PM EST Rx sent to pharmacy [facility] [id number] Telephone encounter Note* Telephone Encounter - Myra Turcios - 06/23/2024 11:50 AM EST Patient called and left vm requesting antibiotic be sent to her pharmacy for her upcoming dentist appt. [facility] [id number] History of Present illness Narrative* Kevin Aguilar [...] back in a month [id number] History of Present illness Narrative* Kevin Aguilar DO - 06/13/2024 12:45 PM EST Allergies as of 06/13/2024 - Reviewed 06/09/2024 Allergen Reaction Noted Sulfamethoxazole-trimethoprim Rash 11/26/2022 Hydrocodone-acetaminophen GI intolerance 11/26/2022 Oxycodone-acetaminophen Hallucinations 11/26/2022 Wound dressing adhesive Rash 08/13/2023 Past Medical History: Diagnosis Date Abnormal Pap smear of cervix Acid reflux Alcohol abuse BMI 33.0-33.9,adult Crohn's disease ([facility]) Depression ([facility]) Depression screen Diabetes type 2, controlled ([facility]) Diabetes, gestational DM2 (diabetes mellitus, type 2) ([facility]) Encounter for gynecological examination (general) (routine) without abnormal findings GERD (gastroesophageal reflux disease) H/O degenerative disc disease Hemangioma Hepatitis A History of being hospitalized STROKE 08/2019, childbirth Hyperlipidemia (CMS/HCC) Hypertension (CMS/HCC) Hypothyroid (CMS/HCC) Hypothyroidism (CMS/HCC) Kidney disease Lacunar infarction (CMS/HCC) Neurologic disorder OA (osteoarthritis) JOSE RAMON (obstructive sleep apnea) Post menopausal syndrome Post-menopausal PVD (peripheral vascular disease) (CMS/HCC) Thyroid cancer ([facility]/HCC) Well woman exam Current Outpatient Medications: acetaminophen [...] Rfl: 0 cholecalciferol (Vitamin D-3) 1.25 MG (80293 UT) capsule, Take 50,000 Units by mouth [...] at the same time., Disp: , Rfl: Duff-3 Fatty Acids (Fish Oil) 1200 MG capsule [...] has consented to proceed. documented in this encounterSaint Luke's Health [id number] History of Present illness Narrative* Aamir James [...] meds, nerve injury, and recurrence were addressed.) [place] Protocol: Procedure explained and questions answered to [...] sodium bicarbonate Procedure Details: Biopsy accession number: [id number] Biopsy lab: [facility] Date of biopsy: 04/12/2024 Frozen section biopsy [...] ENT Next visit: 12/13/2024 documented in this encounterSaint Luke's Health [id number] NoteNurse Consultation Note Reason for Visit Pt [...] virus vaccine, inactivated 04/21/2022 Recorded SARS-CoV-2 (COVID-19) [id number] 04/21/2022 Recorded influenza virus vaccine, inactivated 03/15/2021 [...] Keep all follow-up visits. Medicines ??? Take rybw-kma-yuhmkni and prescription medicines only as told by [...] of bone, soft tissue, and skin [place] pearly papule Lesion biopsy Type of biopsy: [...] Visit: pending biopsy results documented in this encounterSaint Luke's Health [id number] Hospital Discharge instructions Patient Education 02/18/2024 13:24:16 Kidney Stones, Ptsr-xc-Wndc Kidney Stones Kidney stones are rock-like masses [...] Follow these instructions at home: Medicines Take senk-xxu-gjtfoau and prescription medicines only as told by [...] provider. Document Revised: 12/26/2022 Document Reviewed: 12/26/2022 [employer] Patient Education 2023 HelpAround. Follow Up Care 08/17/2023 12:32:41 With:EDWINA MOSLEY, Bertha Vu, URL Address: [address] [place] [address]- When:1 year Comments:ORION granger [facility] 10-03-2024 NotePatient Education Urology Kidney Stones [...] these instructions at home: Medicines ? Take hqop-sup-xepciid and prescription medicines only as told by [...] provider. Document Revised: 12/26/2022 Document Reviewed: 12/26/2022 [employer] Patient Education ? 2023 HelpAround.[facility] 08-17-2023 Hospital Discharge instructions Patient [...] Follow these instructions at home: Medicines Take sbyy-hpd-zjylsyv and prescription medicines only as told by [...] provider. Document Revised: 01/23/2021 Document Reviewed: 01/23/2021 [employer] Patient Education 2022 HelpAround. Follow Up Care 02/13/2023 10:34:47 With:EDWINA MOSLEY, Bertha Vu, URL Address: [facility] [address] [place] [phone] When: Unknown Comments:6 mos w/ KUDemarcus and TIM, nurse visit for PVR in 1 month [facility] 11-14-2023 Procedure [facility]10-26-2023 Procedure [facility]09-29-2023 Hospital Discharge instructions Patient Education 02/13/2023 10:30:11 Urinary Tract Infection, Adult, Thgm-ls-Mvum Urinary Tract Infection, Adult A urinary tract [...] Follow these instructions at home: Medicines Take xjbn-zyc-crovlyq and prescription medicines only as told by [...] provider. Document Revised: 12/14/2020 Document Reviewed: 12/14/2020 [employer] Patient Education 2022 HelpAround. 02/13/2023 10:30:09 Dietary Guidelines to Help Prevent [...] include: ?8 oz (237 mL) of milk, eiudxtw-ibjrsijogjmt-fvsqy milk, and calcium- fortifiedfruit juice. Calcium-fortified means [...] ?Spinach (cooked), rhubarb, beets, sweet potatoes, and Cape Verdean chard. ?Peanuts. ?Potato chips, cymraes fries, and baked potatoes with skin on. ?Nuts and nut products. ?Chocolate. If you regularly take a diuretic medicine, make sure to eat at least 1 or 2 servings of fruits or vegetables that are high in potassium each day. These include: ?Avocado. ?Banana. ?Sutter, prune, carrot, or tomato juice. ?Baked potato. [...] magnesium, fish oil, or vitamin B6. Take kbnf-vgw-gixuzqd and prescription medicines only as told by [...] Casseroles. Pizza. Lasagna. Frozen meals. Potato chips. American fries. The items listed above may not [...] provider. Document Revised: 01/13/2022 Document Reviewed: 01/13/2022 [employer] Patient Education 2022 HelpAround. Follow Up Care 12/05/2022 12:34:13 With:EDWINA MOSLEY, Bertha Vu, URL Address: [facility] [address] [place] [address]- When:Within 6 Month(s) Comments:w/PVR [facility] 03-14-2023 Hospital Discharge instructions Patient Education [...] [facility] [address] [place] [address]- Business (1) When:11/28/2022 09:46:34 [facility]03-09-2023 Evaluation note* Encounter Date Diagnosis Assessment Notes Treatment Notes Treatment Clinical Notes Jul, Crohns disease (ICD-10 - K50.90) Continue Humira as directed [facility] Other 05-03-2022 Evaluation note* Encounter Date Diagnosis Assessment Notes Treatment Notes Treatment Clinical Notes September, Ulcerative colitis (ICD-10 - K51.90) [facility] Other 04-20-2022 History general Narrative - Reported* Type Description Date Medical History thyroid cancer Medical History thyroidectomy Medical History appendectomy Medical History inflammation of colon Medical History hypertension Medical History STROKE 09/04 Surgical History appendectomy Surgical History thyroidectomy 2001 Hospitalization History see above [facility] Other 11-16-2021 Evaluation note* Encounter Date Diagnosis Assessment Notes Treatment Notes Treatment Clinical Notes Mar, Ulcerative colitis (ICD-10 - K51.90) Continue Humira - start citrate free [facility] Other Evaluation + Plan note Future Appointments Appointment Date:07/22/2022 03:00:00 PM Scheduled Provider: Location:[facility] Appointment Type:Urology CALL PAT FT Appointment Date:07/29/2022 08:00:00 AM Scheduled Provider: Location:[facility] Appointment Type:Urology FT Appointment Date:07/29/2022 09:15:00 AM Scheduled Provider: Location:[facility] Appointment Type:Urology FT Diagnostic Tests Pending * [facility]rine [facility] App[facility]ments Appointment Date:11/17/2022 11:45:00 AM Scheduled Provider:Bertha BLAND MD [facility] Office Visit [facility] [place] Evaluation + Plan note Future Appointments Appointment Date:11/17/2022 11:45:00 AM Scheduled Provider:Bertha BLAND MD [facility] App[facility] Type:URO Office Visit Diagnostic Tests Pending * Urine Culture [facility] Future Appointments Appointment Date:12/05/2022 11:00:00 AM Scheduled Provider:Bertha BLAND MD [facility] Appoint[facility] Type:URO Office Visit Diagnostic Tests Pending * Urine Culture [facility] Future App[facility]ments Appointment Date:12/05/2022 11:00:00 AM Scheduled Provider:Bertha BLAND MD [facility] App[facility] Type:URO Office Visit [facility] evaluation + Plan note Future Appointments Appointment Date:05/13/2023 02:00:00 PM Scheduled [facility] Medicare Wellness Subsequent Appointment Date:08/17/2023 10:45:00 AM Scheduled Provider:Bertha BLAND MD [facility] App[facility] Type:URO Office Visit [facility] evaluation + Plan note Future Appointments Appointment Date:08/17/2023 10:45:00 AM Scheduled Provider:Bertha BLAND MD Location:[facility] [place] Appointment Type:URO Office Visit Appointment Date:05/13/2024 01:00:00 PM Scheduled Provider: [facility] App[facility]ment Type:FM Medicare Wellness [facility] Future Appointments Appointment Date:09/14/2023 10:00:00 AM Scheduled [facility]: [facility] Type:URO Nurse Visit Appointment Date:02/19/2024 10:45:00 AM Scheduled Provider:Bertha BLAND MD [facility] Appointment Type:URO Office Visit Appointment Date:05/13/2024 01:00:00 PM Scheduled Provider: Location:[facility] Appointment Type:FM Medicare Wellness Subsequent [facility] evaluation + Plan note Future Appointments Appointment Date:10/05/2023 11:20:00 AM Scheduled Provider:Bambi Reynolds Location[facility] Appointment Type:FM Open Appointment Date:02/19/2024 10:45:00 AM Scheduled Provider:Bertha BLAND MD [facility] Appointment Type:URO Office Visit Appointment Date:05/05/2024 01:00:00 PM Scheduled Provider: Location:[facility] Appointment Type:FM Medicare Wellness Subsequent [facility] evaluation + Plan note Future Appointments Appointment Date:02/19/2024 10:45:00 AM Scheduled Provider:Bertha BLAND MD [facility] Appointment Type:URO Office Visit Appointment Date:05/05/2024 01:00:00 PM Scheduled Provider: Location[facility] Appointment Type:FM Medicare Wellness Subsequent Diagnostic Tests Pending * Urine Culture 01/21/24 [facility] Evaluation + Plan note Future Appointments Appointment Date:05/05/2024 01:00:00 PM Scheduled Provider: Location:[facility] Appointment Type:FM Medicare Wellness Subsequent Appointment Date:02/17/2025 11:00:00 AM Scheduled Provider:Bertha BLAND MD [facility] Appointment Type:URO Office Visit [facility] evaluation + Plan note Future Appointments Appointment Date:08/29/2024 10:00:00 AM Scheduled Provider:Bambi Reynolds Location:[facility] Appointment Type:FM Open Appointment Date:02/17/2025 11:00:00 AM Scheduled Provider:Bertha BLAND MD [facility] Appointment Type:URO Office Visit Appointment Date:05/16/2025 01:00:00 PM Scheduled [facility] Type[facility] Medicare Wellness Subsequent [facility] Evaluation + Plan note Future Appointments Appointment Date:05/16/2025 01:00:00 PM Scheduled [facility] Type[facility]FM Medicare Wellness [facility] noteNo assessment information available [facility] Work Phone: Evaluation noteNo InformationNort [employer] Other Evaluation note* Diagnosis Onset Date Resolution Status Crohn disease acute [facility] Work Phone: Evaluation note* Diagnosis Melanocytic [...] x disease) acute August 15, 2024 10:31am [facility] Work Phone: Evaluation note* Diagnosis Well woman exam with routine gynecological exam Routine gynecological examination Encounter for screening mammogram for malignant neoplasm of breast documented in this encounter [facility] HealthcareEvaluation note* Diagnosis Cerebrovascular accident (CVA), [...] Gait disturbance, post-stroke documented in this encounter [facility] HealthcareEvaluation note* Diagnosis Melanocytic nevus of trunk- Primary Benign neoplasm of skin of trunk, except scrotum Seborrheic keratosis History of basal cell carcinoma Personal history of other malignant neoplasm of skin Androgenic alopecia Other alopecia documented in this encounter [facility] HealthcareHistory and physical note Author Cesar Estrada [facility] March 12, 2023 9:42am Note Date/Time March 12, 2023 9 :42am [facility] [address] [place] [address] Gastroenterology H&P Signed Patient: Gia Ruiz MR#: [id number] : 1950 Acct:[id number] Age/Sex: 73 / F Adm Date: 3 Loc: Room: Type: [facility] Attending Dr: Cesar Estrada MD Copies to: [...] <Electronically signed by Cesar Estrada MD> 03/12/2342 [facility] Work Phone: History and physical note Author Cesar Estrada [facility] March 31, 2023 1:33pm Note Date/Time March 31, 2023 1:33pm [facility] [address] [place] [address] Gastroenterology H&P Signed Patient: Gia Ruiz MR#: [id number] : 1950 Acct:[id number] Age/Sex: 73 / F Adm Date: 3 Loc: Room: Type: [facility] Attending Dr: Cesar Estrada MD Copies to: [...] <Electronically signed by Cesar Estrada MD> 03/31/[address] [facility] Work Phone: Hishtcm general Narrative - Reported* Type Description Date Medical History thyroid cancer Medical History thyroidectomy Medical History appendectomy Medical History inflammation of colon Medical History hypertension Medical History STROKE 09/04 Surgical History appendectomy Surgical History thyroidectomy 2001 Hospitalization History see above [facility] Other Hospital course Narrative No data available for this section [facility] Discharge instructions No data available for this section [facility] Discharge instructions Additional Instructions DISCHARGE INSTRUCTIONS FOR [...] NOT operate machinery such as power tools, [employer] mowers, snow blowers, sewing machines, etc. for [...] problems. -Follow up with PCP. -Office number [phone].[facility] Work Phone: Hospital Discharge instructions [...] problems. -Follow up with PCP. -Office number [phone].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 August [...] Basal cell carcinoma (BCC) of glabella Procedures [place] OFFICE/OUTPATIENT NEW HIGH MDM 60 MINUTES Aamir James MD [address] [place] [address] Phone: tel: fax: Kevin Aguilar W, DO [address] [place] [address] Phone: tel: fax: Referral ID Status Reason Start Date Expiration Date V isits Requested Visits Authorized [id number] Closed Specialty Services Required 06/09/2024 12/06/2024 1 [...] Active Member Role Status Dates Bambi Browning SQUAD BOSS-C Primary Care Provider Active Team Status: Inactive Member Role Status Dates Adriana Cárdenas Jr, DO Attending Provider Active Bambi Browning SQUAD BOSS-C Primary Care Provider Active Team Status: Inactive Member Role Status Dates Bambi Browning SQUAD BOSS-C Primary Care Provider Active Adriana Cárdenas Jr, DO Attending Provider Active Team Status: Inactive Member Role Status Dates Cesar Estrada MD Attending Provider Active Bambi Browning SQUAD BOSS-C Primary Care Provider Active Team Status: Inactive Member Role Status Dates Bambi Browning SQUAD BOSS-C Primary Care Provider Active Cesar Estrada MD [...] 01, 2023 End: October 01, 2023 Supervisor Weaving Relationship Specialty Start Date End Date Mile Sanchez MD [address] [place] [phone] PCP - General Family Medicine 11/26/22 Supervisor Weaving Relationship Specialty Start Date End Date Mile Sanchez MD [address] [place] [address] PCP - General Family Medicine 11/26/22 Supervisor Weaving Relationship Specialty Start Date End Date Mile Sanchez MD [address] [place] [phone] PCP - General Family Medicine 11/26/22 Supervisor Weaving Relationship Specialty Start Date End Date Mile Snachez MD [address] [place] [address] PCP - General Family Medicine 11/26/22 Supervisor Weaving Relationship Specialty Start Date End Date Mile Sanchez MD [address] [place] [address] PCP - General Family Medicine 11/26/22 Supervisor Weaving Relationship Specialty Start Date End Date Mile Sanchez MD [address] [place] [address] PCP - General Family Medicine 11/26/22 Supervisor Weaving Relationship Specialty Start Date End Date Mile Sanchez MD [address] [place] [address] PCP - General Family Medicine 11/26/22 Supervisor Weaving Relationship Specialty Start Date End Date Mile Sanchez MD [address] [place] [address] PCP - General Family Medicine 11/26/22 Supervisor Weaving Relationship Specialty Start Date End Date Mile Sanchez MD [address] [place] [address] PCP - General Family Medicine 11/26/22 Supervisor Weaving Relationship Specialty Start Date End Date Mile Sanchez MD [address] [place] [address] PCP - General Family Medicine 11/26/22 Supervisor Weaving Relationship Specialty Start Date End Date Mile Sanchez MD [address] [place] [address] PCP - General Family Medicine 11/26/22 Team Status: Inactive Member Role Status Dates Cesar Estrada MD Attending Provider Active S tart: August 15, 2024 End: August 15, 2024 Mile Sanchez MD Primary Care Provider Active Start: August 15, 2024 End: August 15, 2024 Supervisor Weaving Relationship Specialty Start Date End Date Mile Sanchez MD [address] [place] [phone] PCP - General Family Medicine 11/26/22 Supervisor Weaving Relationship Specialty Start Date End Date Mile Sanchez MD [address] [place] [address] PCP - General Family Medicine 11/26/22 Supervisor Weaving Relationship Specialty Start Date End Date Mile Sanchez MD [address] [place] [address] PCP - General Family Medicine 11/26/22 Supervisor Weaving Relationship Specialty Start Date End Date Mile Sanchez MD [address] [place] [address] PCP - General Family Medicine 11/26/22 Team Status: Inactive Member Role Status Dates Mile Sanchez MD Primary Care Provider Active Start: September 07, 2024 End: September 07, 2024 PONCHO Campos-C Attending Provider Active S tart: September 07, 2024 End: September 07, 2024 Cesar Estrada MD Other Provider Active Start : September 07, 2024 End: September 07, 2024 Supervisor Weaving Relationship Specialty Start Date End Date Mile Sanchez MD [address] [place] [address] PCP - General Family Medicine 11/26/22 Supervisor Weaving Relationship Specialty Start Date End Date Mile Sanchez MD [address] [place] [address] PCP - General Family Medicine 11/26/22 Supervisor Weaving Relationship Specialty Start Date End Date Mile Sanchez MD [address] [place] [address] PCP - General Family Medicine 11/26/22 Team Status: Inactive Member Role Status Dates Flores Brito APRN Attending Provider Active Start: February 07, 2025 End: February 07, 2025 Bambi Browning , SQUAD BOSS-C Primary Care Provider Active Start: February 07, [...] CREATED AUTHOR AUTHOR'S ORGANIZ ATION 06/01/2024 [facility] DATE CREATED AUTHOR AUTHOR'S ORGANIZ ATION 06/04/2024 [facility] DATE CREATED AUTHOR AUTHOR'S ORGANIZ ATION 10/04/2024 [facility] DATE CREATED AUTHOR AUTHOR'S ORGANSARANYA ATION 12/03/2024 [facility] EPIC DATE CREATED AUTHOR AUTHOR'S ORGANIZ ATION 02/26/2025 [facility] FOR RECORDS PERTAINING TO PATIENTS [...] BE BASED ON THE PRIMARY CLINICAL RECORDS. [email or web address] provides no warranty or guarantee of the accuracy or completeness of information in this document.
--- OUTSIDE RECORDS SUMMARY | 2025-03-06 12:37 | XMS_ITS | Encounter Summary ---
Author Organization [facility] Address [address] [place] [address] Care Team Providers Care Federal Judicial Law Clerk Name Role Phone Marc Leggett MD Primary Care Provider [phone] Encounter Details Date Type Department Care Team (Latest Contact Info) Description 09/07/2024 Results Follow-Up [facility] [address] [place] [address] Timothy Bernstein, PA [address] [place] [address] Urinalysis with reflex microscopic Social [...] Orthopaedics [address] [place] [address] Timothy Bernstein, PONCHO [address] [place] [address] 11/30/2025 11:00 AM EDT Office Visit [facility] [address] [place] [address] Elma Chávez MD [address] [place] [address] documented as of this encounter Visit Diagnoses Not on filedocumented in this encounter Care Teams Federal Judicial Law Clerk Relationship Specialty Start Date End Date Marc Leggett MD PCP - General Family Medicine 11/26/22 documented as of this encounter
--- OUTSIDE RECORDS SUMMARY | 2025-03-06 12:38 | XMS_ITS | Encounter Summary ---
Author Organization [facility] Address [address] [place] [address] Care Team Providers Care Tight Barrel Inspector Name Role Phone Marc Leggett MD Primary Care Provider [phone] Encounter Details Date Type Department Care Team (Late st Contact Info) Description 04/17/2023 Abstract [facility] [address] [facility] [address] [place] [address] Marc Clifton, PT Social History Tobacco Use [...] Orthopaedics [address] [place] [address] Timothy Bernstein PA [address] [facility] [address] 11/30/2025 11:00 AM EDT Office [facility] [address] [place] [address] Elma Chávez MD [address] [place] [address] documented as of this encounter Visit Diagnoses Not on filedocumented in this encounter Care Teams Tight Barrel Inspector Relationship Specialty Start Date End Date Marc Leggett MD PCP - General Family Medicine 11/26/22 documented as of this encounter
--- OUTSIDE RECORDS SUMMARY | 2025-03-06 12:38 | XMS_ITS | Clinical Summary ---
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
--- OUTSIDE RECORDS SUMMARY | 2025-03-06 12:38 | XMS_ITS | Clinical Summary ---
Author Organization [facility] Address [id number] [address] [place] [address] Care Team Providers Care Coal Chemist Name Role Phone Unavailable Primary Care Provider [...] NON FORMULARY Magnesium 500mg daily Active omega 9-nwz-mwa-fish oil (FISH OIL) 300-1,000 mg capsule Take [...] Take 1 tablet by mouth daily. Active fvpt-nvepwfo-A4 1-N-sixf-Zn-dss 160 mg iron-1 mg-60 mcg tablet Take [...] Medical Devices Not on file Insurance MEDICARE [facility]
--- OUTSIDE RECORDS SUMMARY | 2025-03-06 12:38 | XMS_ITS | Encounter Summary ---
Author Organization [facility] Address [address] [facility] [place] [address] Care Team Providers Care Mold Changer Name Role Phone Marc Leggett MD Primary Care Provider Encounter Details Date Type Department Care Team (Late st Contact Info) Description 10/01/2023 External Result Encounter [facility] External Department Unsolicited Timothy Bernstein, PA [address] [place] [address] Social History Tobacco Use Types [...] [address] [place] [address] Timothy Bernstein, PONCHO [address] [facility] [place] [address] 11/30/2025 11:00 AM EDT Office Visit [facility] [address] [place] [address] Elma Chávez MD [address] [place] [address] documented as of this encounter [...] Lloyd Schuler M.D.10/01/2023 5:05 PM Dictation Location: [place] [address] Transcribed By: [facility] 10/01/231704 Dictated By: Lloyd Schuler DO 10/01/231702 Signed By: <Electronically signed by Lloyd Schuler DO in OV> 10/01/23 1705 Narrative 10/01/2023 5:07 PM EDT [facility] Main [place] [address] [place] [address] XRay Report Signed Patient: Gia Ruiz MR#: [id number] : 1950 Acct:[id number] Age/Sex: 73 / F ADM Date: 10/01/23 Loc: ICXD Room: Type: REG CLI Attending Dr: Timothy Bernstein PA-C Copies to: Timothy Bernstein PA-C Ordering Provider: Timothy Bernstein PA-C Date of Service: 10/01/23 XR/XR femur BI: Z01.818 ([id number]) XR/XR tibia/fibula BI: Z01.818 Bilateral femur and tibia and fibula HISTORY: Presurgical assessment for left total knee arthroplasty. Adequate hip and SI joints. Intact femurs. No fracture. Unremarkable right knee arthroplasty. Moderate right knee degeneration. Intact tibia and fibula. No fracture. Adequate alignment. Mild bilateral knee degeneration. No soft tissue abnormality. XR/XR femur BI Procedure Note Radiology, Radiologist, - 10/01/2023 [facility] Main [place] [address] [place] [address] XRay Report Signed Patient: Gia Ruiz LMR#: [id number] : 1950cct:[id number] Age/Sex: 73 / FADM Date: 10/01/23 Loc: ICXD Room:Type: REG CLI Attending Dr: Timothy Bernstein PA-C Copies to: Timothy Bernstein PA-C Ordering Provider: Timothy Bernstein PA-C Date of Service: 10/01/23 XR/XR femur BI: Z01.818 ([id number]) XR/XR tibia/fibula BI: Z01.818 Bilateral femur and [...] Lloyd Schuler M.D.10/01/2023 5:05 PM Dictation Location: [place] [address] Transcribed By: [facility] 10/01/23 9867 Dictated By: Lloyd Schuler DO 10/01/23 1703 Signed By: <Electronically signed by Lloyd Schuler DO in OV> 10/01/23 1705 us Timothy ISAAC IMG XR PROCEDURES Final Resul t documented in this encounter Visit Diagnoses Not on filedocumented in this encounter Care Teams Mold Changer Relationship Specialty Start Date End Date Marc Leggett MD PCP - General Family Medicine 11/26/22 documented as of this encounter
--- OUTSIDE RECORDS SUMMARY | 2025-03-06 12:38 | XMS_ITS | Encounter Summary ---
Author Organization [facility] Address [address] [place] [address] Care Team Providers Care Sampler First Name Role Phone Marc Leggett MD Primary Care Provider [phone] Encounter Details Date Type Department Care Team (Late st Contact Info) Description 02/23/2023 Abstract [facility] [place] [facility] [address] [facility] [address] [place] [address] Timothy Bernstein, PA [address] [place] [address] Social History Tobacco Use Types [...] Orthopaedics [address] [place] [address] Timothy Bernstein, PA [address] [place] [address] 11/30/2025 11:00 AM EDT Office Visit [facility] [address] [place] [address] Elma Chávez MD [address] [place] [address] documented as of this encounter Visit Diagnoses Not on filedocumented in this encounter Care Teams Sampler First Relationship Specialty Start Date End Date Marc Leggett MD PCP - General Family Medicine 11/26/22 documented as of this encounter
--- OUTSIDE RECORDS SUMMARY | 2025-03-06 12:38 | XMS_ITS | Clinical Summary ---
Author Organization [facility] Address [address] [place] [address] Care Team Providers Care Basket Grader Name Role Phone Unavailable Primary Care Provider [...]
--- OUTSIDE RECORDS SUMMARY | 2025-03-06 12:38 | XMS_ITS | Clinical Summary ---
Author Organization [facility] Address [address] [place] [address], [address] [place] [address] Care Team Providers Care Poultry Vaccinator Name Role Phone Unavailable Primary Care Provider [...]
--- NOTE | 2025-03-06 12:50 | CT_ITS ---
The [address] [address] Patient Name: LIBERTY BRYANT MRN: [id number] date: 1950 Sex: F Assigned Patient Location: CT Current Patient Location: CT Accession/Order Number: [id number] Exam Date: 03/06/2025 12:45 Report Date: 03/06/2025 15:33 At the request of: BERTHA BLAND MD Procedure: CT abdomen pelvis wo con CT ABDOMEN AND PELVIS WITHOUT CONTRAST COMPARISON: 08/19/2022 CLINICAL DATA: Follow-up kidney stones. Spiral images were obtained through the abdomen and pelvis without contrast. This CT exam was performed using one or more following dose reduction techniques: Automated exposure control, adjustment of the mA and/or kV according to patient size, or use of iterative reconstruction technique. Limited cuts through the lung bases show a small to moderate sized hiatal hernia similar to the prior. There is a 7 mm right lower lobe nodular groundglass density which was not seen on the comparison. Assessment of the intra-abdominal organs is slightly limited by the absence of contrast. There is cholelithiasis. Calcified hepatic and splenic granulomas are seen. Hepatic hypodensities are again noted, possibly cysts. The pancreas and adrenal glands show no acute findings. There is minor bilateral perinephric fibrofatty stranding. There is a tiny exophytic hypodensity at the superior pole left kidney may be a cyst. No renal stones are visualized on the right. On the left, 4 mm stones are again seen at the upper and lower poles. No hydronephrosis is identified. No ureteral dilatation or stones are seen. There is atherosclerotic plaque at the aorta and iliac arteries. Tiny lymph nodes are present. No ascites is seen. The small bowel loops are not disproportionately distended though there is some fecalization. There is also stool along the colon. Levoscoliotic curvature and degenerative changes are present at the spine. Images through the pelvis show a small umbilical hernia containing fat. The small bowel loops are not distended. There is prior appendectomy. There is mild distal colonic stool. There are a few sigmoid diverticula, without associated active inflammation. The uterus is surgically absent. The urinary bladder is partially distended. The bladder wall is borderline in thickness. There are no intraluminal abnormalities. No ascites is seen. CT/CT abdomen pelvis wo con IMPRESSION: HIATAL HERNIA. DEVELOPING RIGHT LOWER LOBE GROUNDGLASS NODULAR DENSITY . GRANULOMATOUS CHANGES. CHOLELITHIASIS. SIMILAR LEFT NEPHROLITHIASIS. NO BOWEL OR URINARY TRACT OBSTRUCTION. MINOR DIVERTICULOSIS. Impression dictated by: Deya Anguiano M.D. 03/06/2025 3:33 PM Dictation Location: [place] [address] Electronically authenticated by: [id number] Y Date: 03/06/2025 15:33
== END 2025-03-06 12:33 | disposition home or self-care (01) ==
LOC: CT 12:33
PROVIDERS: PCP Nurse Practitioner; Visit Provider Urology
DX: N20.0 Calculus of kidney (principal); K44.9 Diaphragmatic hernia without obstruction or gangrene; K80.20 Calculus of gallbladder without cholecystitis without obstruction
CPT/HCPCS: 74176